=== PATIENT | male | born 1980 | race Caucasian/White ===

== ENCOUNTER → 2018-04-21 15:13 | Outpatient (CLI) | payer MEDICAID, SELFPAY ==
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
== END ==
PROVIDERS: Family Provider Family Medicine; PCP Family Medicine; Referring Provider Anesthesiology; Visit Provider Anesthesiology
DX: M54.2 Cervicalgia (principal)
CPT/HCPCS: 72050

== ENCOUNTER → 2018-05-05 09:02 | Outpatient (CLI) | payer MEDICAID, SELFPAY ==
[2018-05-05 10:01] LABS: Amphetamine Urine VISTA NEGATIVE (<1000 ng/mL); Barbiturate Urine VISTA NEGATIVE (< 200 ng/mL); Benzodiazepine Urine VISTA NEGATIVE (< 200 ng/mL); Cocaine Urine VISTA NEGATIVE (< 300 ng/mL); Ecstacy Urine VISTA NEGATIVE (< 500 ng/mL); Methadone Urine VISTA NEGATIVE (< 300 ng/mL); PCP Urine VISTA NEGATIVE (< 25 ng/mL); THC Urine VISTA NEGATIVE (< 50 ng/mL); Vista UDS pH Range 6
== END ==
PROVIDERS: Family Provider Family Medicine; PCP Family Medicine; Referring Provider Anesthesiology; Visit Provider Anesthesiology
DX: F11.20 Opioid dependence, uncomplicated (principal)
CPT/HCPCS: 80307

== ENCOUNTER 2018-05-21 09:25 | Emergency (ER) | payer MEDICAID, SELFPAY ==
[2018-05-21 11:44] LABS: Anion Gap 11 (5-15); BUN 8 mg/dL (7-18); BUN/Creat Ratio 9.5 RATIO (10-20); Calcium,Total 8.7 mg/dL (8.5-10.1); Chloride 102 mmol/L (98-107); Creatinine, Serum 0.84 mg/dL (0.70-1.30); EST Glomerular Filtration Rate 108 mL/min (>60); Est Glom Filt Rate - Afr Amer 131 mL/min (>60); Glucose 96 mg/dL (74-106); Potassium 4.1 mmol/L (3.5-5.1); Sodium Level 136 mmol/L (136-145)
--- NOTE | 2018-05-21 11:44 | ED.RN ---
SEE DOWNTIME DOCUMENTATION
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
[2018-05-21 12:12] LABS: Absolute Lymphocyte Count 1.69 X10^3/ul (0.83-4.51); Absolute Neutrophil Count 12.1 X10^3/uL (2.0-7.7); Basophil# 0.02 X10^3/uL; Basophil% 0.1 % (0-1); Eosinophil# 0.04 X10^3/uL; Eosinophils% 0.2 % (0-5); Hematocrit 33.4 % (40-54); International Normalized Ratio 1.1; Lymphocyte # 1.69 X10^3/ul (4.0); Lymphocyte % 10.5 % (19-41); Mean Corp Hgb Conc 32.9 g/gl (32-36); Mean Corpuscular Hgb 28.9 pg (27.0-32.0); Mean Corpuscular Volume 87.7 fL (80-94); Mean Platelet Vol. 9.6 fl (6.2-12.0); Monocyte# 2.19 X10^3/uL; Monocyte% 13.6 % (0-10); Neutrophil # 12.13 X10^3/uL (2.7-7.7); Neutrophil % 75.1 % (47-70); Partial Thromboplast Time 31.9 Seconds (24.1-36.2); Platelet Count 463 K/mm3 (150-450); Prothrombin Time (Protime)PT. 14.1 SECONDS (11.7-14.9); RBC Distribution Width SD 44.6 fl (35.1-43.9); Red Blood Count 3.81 M/mm3 (4.6-6.2); White Blood Count 16.2 K/mm3 (4.4-11.0)
[2018-05-21 12:13] LABS: Anisocytosis RARE; Differential Indicated SCAN CRITERIA MET; POSITIVE COUNT NO; POSITIVE DIFFERENTIAL YES; POSITIVE MORPHOLOGY NO; Polychromasia RARE
[2018-05-21 13:00] VITALS: BP 122/78; PULSE 96; RESP 14; TEMP 38; O2SAT 97
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
--- NOTE | 2018-05-21 13:55 | NURSING ---
patient accepted at [facility]
--- NOTE | 2018-05-21 14:36 | NURSING ---
CALLED [facility] FOR TRANSPORT
[2018-05-21 15:00] VITALS: BP 144/78; PULSE 104; RESP 14; TEMP 37.8; O2SAT 100
[2018-05-21 15:03] VITALS: BP 144/78; PULSE 104; RESP 14; TEMP 37.8; O2SAT 100
--- NOTE | 2018-05-21 15:51 | ED.RN ---
EMS at bedside for transport. report given. Denies questions. Pt transferred self on EMS cot.
== END 2018-05-21 15:52 | disposition short-term general hospital (02) ==
PROVIDERS: Emergency Provider Emergency Medicine; Family Provider Family Medicine; PCP Family Medicine
DX: M27.2 Inflammatory conditions of jaws (principal); J45.909 Unspecified asthma, uncomplicated; F17.210 Nicotine dependence, cigarettes, uncomplicated
CPT/HCPCS: 36415; 70491; 80048; 83605; 85025; 85610; 85730; 87040; 96374; 96375; 99282; 99283; Q9967; A4216; J2405

== ENCOUNTER → 2018-07-11 08:45 | Outpatient (CLI) | payer MEDICAID, SELFPAY ==
[2016-11-12 22:33] VITALS: BMI 23.8
[2018-07-11 09:38] LABS: Valproic Acid (Depakene) Level 70 ug/mL (50-100)
== END ==
PROVIDERS: Family Provider Family Medicine; PCP Family Medicine
DX: Z79.899 Other long term (current) drug therapy (principal)
CPT/HCPCS: 36415; 80164

== ENCOUNTER 2019-10-04 07:19 | Observation (INO) | payer MEDICARE, SELFPAY ==
[2019-10-04] VITALS (16 sets, daily range): BP systolic 125–157; BP diastolic 83–101; PULSE 91–107; RESP 16–19; TEMP 36.4–36.8; O2SAT 95–99; BMI 28.3
--- NOTE | 2019-10-04 07:44 | CT_ITS ---
STUDY: CT ABDOMEN AND PELVIS WITHOUT CONTRAST REASON FOR EXAM: Male, 38 years old. BRIGHT RED RECTAL BLEEDING/ ABD PAIN X1 WEEK RADIATION DOSAGE (If Supplied By Facility): CTDIvol = ( 9.60 ) mGy, DLP = ( 544.62 ) mGycm TECHNIQUE: Transaxial images were obtained from the dome of the diaphragm to the symphysis pubis without oral contrast, and without intravenous contrast. Sagittal and coronal images were reconstructed. Individualized dose optimization techniques were used for this CT. COMPARISON: None. FINDINGS: Minimal increased markings at the right lung base suggestive of basilar atelectasis. The visualized portions of the heart are within normal limits. Normal liver. I suspect small gallstones along the dependent portion of the gallbladder lumen. Mildly thickened gallbladder wall. Small amount of fluid is seen along the inferior aspect of the right lobe of the liver. Correlation with ultrasound the gallbladder is recommended for further evaluation. Normal spleen. Normal pancreas. Normal bilateral adrenal glands. Normal right kidney. Normal left kidney. Normal visualized stomach. Normal small intestine. Normal colon. The appendix is visualized and appears normal. Normal abdominal aorta. Normal inferior vena cava. There is borderline retroperitoneal lymphadenopathy with enlarged nodes no greater than 10mm in the short axis diameter. Normal urinary bladder. Small amount of free fluid in the pelvis. There is a small umbilical hernia containing fat. Normal osseous structures. CT/Abdomen/Pelvis without Cont IMPRESSION: Mild gallbladder wall thickening with a small amount of fluid along the inferior edge of the right lobe of the liver. Possible tiny gallstones within the gallbladder lumen. Correlation with sonogram of the gallbladder is recommended for further evaluation. Small amount of fluid is seen in the pelvis. Electronically Signed: Leeroy Ferguson, at 8:37 EDT , Service support ,
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
[2019-10-04] MEDS: Ondansetron 4 MG/2 ML Vial IV (07:58)
[2019-10-04] MEDS: 0.9% Normal Saline 1,000 ML 1000 ML IV (07:58)
[2019-10-04] MEDS: morphine 8 MG/ML Syringe IV ×2 (07:58→12:56)
[2019-10-04 08:08] LABS: Absolute Lymphocyte Count 0.99 X10^3/uL (0.83-4.51); Basophil# 0.03 X10^3/uL; Basophil% 0.3 % (0-1); Eosinophil# 0.09 X10^3/uL; Eosinophils% 0.8 % (0-5); Hematocrit 40.8 % (40-54); Hemoglobin 12.8 g/dL (13.0-16.5); Lymphocyte # 0.99 X10^3/ul (4.0); Lymphocyte % 9.2 % (19-41); Mean Corp Hgb Conc 31.4 g/dL (32-36); Mean Corpuscular Hgb 27.4 pg (27.0-32.0); Mean Corpuscular Volume 87.2 fL (80-94); Mean Platelet Vol. 10.9 fl (6.2-12.0); Monocyte% 14.8 % (0-10); NRBC Flagged by Analyzer 0 % (0-5); Neutrophil # 8.02 X10^3/uL (2.7-7.7); Neutrophil % 74.4 % (47-70); POSITIVE DIFFERENTIAL YES; Platelet Count 301 K/mm3 (150-450); RBC Distribution Width CV 17.4 % (11.6-14.6); RBC Distribution Width SD 55.8 fl (35.1-43.9); Red Blood Count 4.68 M/mm3 (4.6-6.2); White Blood Count 10.8 K/mm3 (4.4-11.0)
[2019-10-04 08:11] LABS: Differential Indicated SCAN CRITERIA MET
[2019-10-04 08:25] LABS: ALB/GLOB Ratio 0.9 RATIO (0.9-2.4); AST(SGOT) 18 U/L (15-37); Alanine Aminotransfer ALT/SGPT 25 U/L (16-61); Albumin, Serum 3.6 g/dL (3.2-5.0); Alkaline Phosphatase 90 U/L (45-117); Anion Gap 8 (5-15); BUN 8 mg/dL (7-18); BUN/Creat Ratio 8.8 RATIO (10-20); Calcium,Total 9.7 mg/dL (8.5-10.1); Chloride 102 mmol/L (98-107); Creatinine, Serum 0.91 mg/dL (0.70-1.30); EST Glomerular Filtration Rate 98 mL/min (>60); Est Glom Filt Rate - Afr Amer 118 mL/min (>60); Estimated Creatinine Clearance 107.91 ml/min; Globulin 4.1 g/dL (2.2-4.2); Glucose 124 mg/dL (74-106); Lipase 51 U/L (73-393); Protein, Total 7.7 g/dL (6.4-8.2); Sodium Level 135 mmol/L (136-145)
[2019-10-04 09:09] LABS: Mucous, Urine 0 SEEN /hpf (<or=2+); Red Blood Cells-Urine 0 SEEN /hpf (0-5); Squamous Epithelial Cells - UA 0 SEEN /hpf (0-5); White Blood Cells 0 SEEN /hpf (0-5)
[2019-10-04 09:10] LABS: Color, Urine Straw (Yellow); Glucose, Dipstick Normal (Normal); Ketone-Dipstick Negative (Negative); Leukocyte Esterase-Dipstick Negative /ul (Negative); Nitrite-Dipstick Negative (Negative); Occult Blood-Urine Negative /ul (Negative); Protein-Dipstick Negative (Negative); Urine Bilirubin Dipstick Negative (Negative); Urine Clarity Clear (Clear); Urine Urobilinogen Normal (Normal)
[2019-10-04 09:16] LABS: Bacteria 1+ /hpf (None Seen)
--- NOTE | 2019-10-04 09:27 | US_ITS ---
STUDY: ABDOMINAL ULTRASOUND - RIGHT UPPER QUADRANT REASON FOR VISIT: Male, 38 years old RUQ PAIN TECHNIQUE: Ultrasound evaluation of the right upper quadrant was performed with real-time and static garcia-scale imaging. TECHNICAL QUALITY: Limited. Examination limited due to the patient?s condition. COMPARISON: Comparison is made with prior CT scan and abdomen/pelvis done earlier in the day. FINDINGS: Liver: The liver measures 16.1 cm. There is normal echogenicity of the liver. The bile ducts are within normal limits. There is hepatic color flow. The direction of portal flow is hepatopetal. There is no demonstrated mass lesion. Gallbladder: Normal distended gallbladder. The gallbladder wall is thickened and measures 3.9 mm. There is a positive sonographic Campbell''s sign. There is pericholecystic fluid. There is a solitary echogenic gallstone within the gallbladder. This measures 1.3 cm x 1.4 cm. A small amount of fluid is also seen along the inferior edge of the right lobe of the liver. Common Bile Duct (C.B.D.): The common bile duct was not measured. It was not visualized due to the gas present. Pancreas: There is nonvisualization of the pancreas. Right Kidney: Normal size of the right kidney. The right kidney measures 10.7 cm x 5.2 cm x 5.0 cm. Normal renal cortex. The right cortex measures 1.6 cm. There is no demonstrated renal mass or cyst. There is no right hydronephrosis. US/Gallbladder IMPRESSION: Solitary gallstone with thickened gallbladder wall and a small amount of pericholecystic fluid. Findings are suggestive of acute cholecystitis. Electronically Signed: Leeroy Ferguson, at 10:42 EDT , Service support ,
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
--- NOTE | 2019-10-04 14:00 | GALL_PTH ---
PATIENT: HONORIO PRINCE LOC: [facility] U#:[id number] AGE/SX: 38/M ROOM: GA315 RE10/05/[address]: Dr. Carroll Sr MD : 1980 BED: 1 DIS: 10/06/2019 SPEC #: [id number] RECD: 10/05/19 08:34 STATUS: HERNESTO SAMANTHA #: [id number] DARIA: 10/04/19 14:[address]: Carroll Sr DEPT: SURGICAL PATHOLOGY RECD BY: Aviva Miller ENTERED: 10/05/19 09:40 SP TYPE: MARLEN MOSES DR: Dr. Richar Fields MD Tissues: Gallbladder, NOS Procedures: Surgery Specimen Level III HEADER OPERATION: Laparoscopic cholecystectomy PRE-OP DIAGNOSIS: Acute cholecystitis TISSUE SUBMITTED: Gallbladder MICROSCOPIC DIAGNOSIS Gallbladder, cholecystectomy: Cholesterolosis, acute and chronic cholecystitis and cholelithiasis. AM:fran 10/08/19 MICROSCOPIC DESCRIPTION Slides are reviewed. GROSS DESCRIPTION Received is one container labeled with the patient's name and designated gallbladder. The specimen consists of a gallbladder measuring 10.5 cm in length and up to 4.5 cm in diameter. A portion of the gallbladder wall is partially disrupted. The serosal surface is focally covered with garcia-purulent exudate. The external surface is pink-draper, smooth and glistening for the most part. Focally it is granular, hemorrhagic and contains cautery artifact. The gallbladder contains multiple blood clots and two mulberry, yellow-orange stones each measuring 1 cm in diameter. The mucosa is congested and hemorrhagic. The gallbladder wall measures up to 0.5 cm in thickness. [employer] sections from the gallbladder and the cystic duct are submitted in two cassettes. / SJ:fran 10/05/19 TC:2 CPT: 55575
[2019-10-04] MEDS: Bupivacaine Mpf 0.5% 30 ML VIAL (16:09)
--- NOTE | 2019-10-04 16:09 | OP.PCM_ITS ---
Problem List (1) Cholecystitis Status: Acute (2) Acute cholecystitis due to biliary calculus Status: Acute Report of Operation Date of Procedure: 10/04/19 Pre-Operative Diagnosis: Acute cholecystitis with cholelithiasis Post-Operative Diagnosis: Gangrenous cholecystitis with cholelithiasis Surgery/Procedure Performed:: Laparoscopic cholecystectomy Type of Anesthesia:: General Anesthesiologist: Ankur Driscoll Specimen's removed: Gallbladder Drains: 15 round Elmo-Latham Estimated Blood Loss (mL): 500 cc Fluids Replaced: 1 L Description of Procedure: Patient was brought into the operating room. Placed in the supine position. Under excellent general trach ovation the abdomen was sterilely prepped and draped in usual fashion. Local was injected supraumbilically. Dissection was carried down to the fascia. The fascia was grasped with a Eduardo. Varies needle was placed inside the abdomen. The abdomen was insufflated to 15 torr. A 10/12 trocar was placed without difficulty. To my amazement he only had one adhesion and his abdomen and the site where the G-tube was located as well. A subxiphoid #5 trochars placed inferior to this another #5 trocar was placed laterally a #5 trocar was placed. All of these were placed under direct visualization without injury to underlying structures. One loan adhesion was cut with electrocautery and scissors. I aspirated out the gallbladder it looked necrotic and I grabbed the fundus of the gallbladder and retracted in a cephalad direction. I then went down to the infundibulum large stone was identified at the neck of the gallbladder. I dissected the cystic duct free here. Placed hemoclips proximally and distally and ligated the duct. There was some significant contraction of the gallbladder coming down towards the right hepatic artery I had to dissect close to the gallbladder I did have some bleeding with this but I was able to control it with 2 hemo-lock clips. The right hepatic artery was intact and viable. I started to deliver the gallbladder from the gallbladder bed it avulsed on the liver itself. I had to transect the posterior wall the gallbladder leaving some of the posterior wall onto the liver bed itself. Unfortunately the posterior part of the gallbladder was the thinnest and tore easily necessitating me leaving part of it on the liver bed. I placed the gallbladder with the stones into a specimen bag and brought it through the umbilical port. I had quite a bit of venous oozing from the liver bed here this took a long time to get good control I used to 4 x 4's for direct pressure I use the argon beam and finally placed a piece of Surgicel onto the liver bed and applied pressure for approximately 20 minutes. I removed the 4 x 4's I inspected the liver bed there was no active bleeding around the Surgicel. I felt that it was best to leave the Surgicel in place and not remove it. My clips were in good placement the liver bed itself obviously was healthy there was no signs of necrosis. Towards the end of the procedure I did decide that it was best to type and screen him as well as get a stat H&H. I do not think that I am going to have to need to give him a blood transfusion but I lost more blood than I normally do for this procedure. A 15 round Elmo-Latham drain was placed in the right upper quadrant incision. It was sutured to the skin with a 3-0 nylon and directed towards the base of the cystic duct and liver bed where the gallbladder was located. I aspirated all the air out of the abdomen. I remove the trochars. I closed the fascia the umbilical port with a fig [id number] stitch of 0 Vicryl. Skin incisions were closed with subcuticular stitches of 4-0 Monocryl. Steri-Strips were applied sterile dressings were applied and the patient tolerated the procedure well. - Admit VTE Documentation VTE Present on Admission: No VTE Mechan Device Prophylaxis: SCD's VTE Pharm Prophylaxis ordered?: No Reason prophylaxis not ordered:: Treatment Not Indicated [id number] Laparoscopic cholecystectomy
[2019-10-04 16:20] LABS: Absolute Lymphocyte Count 2.06 X10^3/uL (0.83-4.51); Absolute Neutrophil Count 6.7 X10^3/uL (2.0-7.7); Basophil# 0.03 X10^3/uL; Basophil% 0.3 % (0-1); Eosinophil# 0.16 X10^3/uL; Eosinophils% 1.5 % (0-5); Hematocrit 33.8 % (40-54); Lymphocyte # 2.06 X10^3/ul (4.0); Lymphocyte % 18.8 % (19-41); Mean Corp Hgb Conc 32.5 g/dL (32-36); Mean Corpuscular Hgb 28.1 pg (27.0-32.0); Mean Corpuscular Volume 86.2 fL (80-94); Mean Platelet Vol. 10.2 fl (6.2-12.0); Monocyte# 2.01 X10^3/uL; Monocyte% 18.4 % (0-10); NRBC Flagged by Analyzer 0 % (0-5); Neutrophil # 6.66 X10^3/uL (2.7-7.7); Neutrophil % 60.7 % (47-70); POSITIVE DIFFERENTIAL YES; Platelet Count 242 K/mm3 (150-450); RBC Distribution Width CV 17.6 % (11.6-14.6); RBC Distribution Width SD 55.6 fl (35.1-43.9); Red Blood Count 3.92 M/mm3 (4.6-6.2)
[2019-10-04 16:21] LABS: Differential Indicated SCAN CRITERIA MET
[2019-10-04 16:51] LABS: Anisocytosis RARE; Platelet Estimate ADEQUATE (ADEQ); Red Cell Morphology N CHROM NORMAL (NORM C&C)
[2019-10-04] MEDS: 0.9% Normal Saline 1,000 ML 100 ML IV (18:02)
[2019-10-04] MEDS: oxyCODONE 5 MG Tablet PO (19:55)
--- NOTE | 2019-10-04 20:50 | NURSING ---
notified pharmacy that pt receives pill bubble packets from [facility] and is not able to provide a prescription bottle to the hospital
[2019-10-04] MEDS: Pregabalin 75 MG Capsule 150 MG PO (21:57)
[2019-10-04] MEDS: Benztropine 2 MG Tablet 1 MG PO (21:58)
[2019-10-04] MEDS: QUEtiapine 100 MG Tablet 200 MG PO (21:58)
[2019-10-04] MEDS: HYDROmorphone 0.5 MG/0.5 ML SYRINGE IV (22:00)
[2019-10-04] MEDS: 0.9% Saline Lock 10 ML Syringe IV (22:00)
[2019-10-05 01:35] VITALS: BP 134/89; PULSE 100; RESP 20; TEMP 36.5; O2SAT 95
[2019-10-05] MEDS: oxyCODONE 5 MG Tablet PO ×4 (01:42→22:00)
[2019-10-05] MEDS: 0.9% Normal Saline 1,000 ML 100 ML IV ×2 (03:53→13:53)
[2019-10-05 05:32] VITALS: BP 125/76; PULSE 110; RESP 18; TEMP 36.8; O2SAT 97
[2019-10-05] MEDS: Pregabalin 75 MG Capsule 150 MG PO ×3 (05:42→21:36)
[2019-10-05 06:12] LABS: Absolute Lymphocyte Count 1.33 X10^3/uL (0.83-4.51); Basophil# 0.03 X10^3/uL; Basophil% 0.3 % (0-1); Eosinophil# 0.11 X10^3/uL; Eosinophils% 1.2 % (0-5); Hematocrit 33.2 % (40-54); Hemoglobin 10.3 g/dL (13.0-16.5); Lymphocyte # 1.33 X10^3/ul (4.0); Mean Corpuscular Hgb 27.9 pg (27.0-32.0); Mean Platelet Vol. 10.6 fl (6.2-12.0); Monocyte# 1.35 X10^3/uL; Monocyte% 15.2 % (0-10); NRBC Flagged by Analyzer 0 % (0-5); Neutrophil # 6.02 X10^3/uL (2.7-7.7); Platelet Count 256 K/mm3 (150-450); RBC Distribution Width CV 17.4 % (11.6-14.6); RBC Distribution Width SD 56.8 fl (35.1-43.9); Red Blood Count 3.69 M/mm3 (4.6-6.2); White Blood Count 8.9 K/mm3 (4.4-11.0)
[2019-10-05 06:45] LABS: ALB/GLOB Ratio 0.7 RATIO (0.9-2.4); AST(SGOT) 135 U/L (15-37); Alanine Aminotransfer ALT/SGPT 228 U/L (16-61); Albumin, Serum 2.6 g/dL (3.2-5.0); Alkaline Phosphatase 108 U/L (45-117); Anion Gap 4 (5-15); BUN 7 mg/dL (7-18); BUN/Creat Ratio 7.8 RATIO (10-20); Calcium,Total 8.3 mg/dL (8.5-10.1); Chloride 102 mmol/L (98-107); EST Glomerular Filtration Rate 99 mL/min (>60); Est Glom Filt Rate - Afr Amer 119 mL/min (>60); Globulin 3.5 g/dL (2.2-4.2); Glucose 99 mg/dL (74-106); Potassium 3.9 mmol/L (3.5-5.1); Protein, Total 6.1 g/dL (6.4-8.2); Sodium Level 135 mmol/L (136-145)
[2019-10-05] MEDS: Divalproex (ER) 500 MG Tablet PO (08:59)
[2019-10-05] MEDS: tiZANidine HCl 2 MG Tablet 4 MG PO (08:59)
[2019-10-05] MEDS: FLUoxetine 20 MG Capsule 40 MG PO (08:59)
[2019-10-05] MEDS: Pantoprazole Sodium 40 MG Tablet PO (08:59)
[2019-10-05] MEDS: Docusate Sodium 100 MG Capsule PO (08:59)
[2019-10-05 09:01] VITALS: BP 123/77; PULSE 100; RESP 18; TEMP 37.2; O2SAT 98
[2019-10-05] MEDS: QUEtiapine 100 MG Tablet 200 MG PO ×2 (09:51→21:36)
[2019-10-05 11:49] LABS: Pathologist Review Reviewed
--- NOTE | 2019-10-05 12:09 | PCM.PN.SRG ---
Patient Problems: Active and Suspected Problems Cholecystitis (Acute) Acute cholecystitis due to biliary calculus (Acute) Subjective: The deep pain that he had on admission has improved. He has incisional pain at the present time. No nausea no vomiting. Objective: Dressings are dry. FLOYD drain has only serous sanguinous fluid. No clarice blood. Appropriate incisional discomfort. Not complaining of any leg tenderness. - Physical Exam Vitals/I&O's: Vital Signs Temp Pulse Resp BP Pulse Ox 99.0 F 100 18 123/77 H 98 10/05/19 09:01 10/05/19 09:01 10/05/19 09:01 10/05/19 09:01 10/05/19 09:01 Oxygen Delivery Method Room Air Weight: 192 lb Body Mass Index (BMI) 28.3 Intake and Output for Last 24 Hours 10/03/19 10/04/19 10/05/19 23:59 23:59 23:59 Intake Total 1550 / 1550 1385 / 1385 Output Total 815 / 815 490 / 490 Balance 735 / 735 895 / 895 Laboratory Results 10/04/19 16:02: WBC 11.0, RBC 3.92 L, Hgb 11.0 L, Hct 33.8 L, MCV 86.2, MCH 28.1, MCHC 32.5, RDW Std Deviation 55.6 H, RDW Coeff of Moraima 17.6 H, Plt Count 242, MPV 10.2, Immature Gran % (Auto) 0.300, Neut % (Auto) 60.7, Lymph % (Auto) 18.8 L, [place] % (Auto) 18.4 H, Eos % (Auto) 1.5, Baso % (Auto) 0.3, Absolute Neuts (auto) 6.7, Absolute Lymphs (auto) 2.06, Nucleated RBC % 0, Differential Comment SEE COMMENT, Diff Path Review Reviewed, Platelet Estimate ADEQUATE, RBC Morphology N CHROM, Anisocytosis RARE 10/04/19 16:02: Blood Type O POSITIVE, Antibody Screen NEGATIVE 10/05/19 05:55: WBC 8.9, RBC 3.69 L, Hgb 10.3 L, Hct 33.2 L, MCV 90.0, MCH 27.9, MCHC 31.0 L, RDW Std Deviation 56.8 H, RDW Coeff of Moraima 17.4 H, Plt Count 256, MPV 10.6, Immature Gran % (Auto) 0.300, Neut % (Auto) 68.0, Lymph % (Auto) 15.0 L, [place] % (Auto) 15.2 H, Eos % (Auto) 1.2, Baso % (Auto) 0.3, Absolute Neuts (auto) 6.0, Absolute Lymphs (auto) 1.33, Nucleated RBC % 0 10/05/19 05:55: Sodium 135 L, Potassium 3.9, Chloride 102, Carbon Dioxide 29.0, Anion Gap 4 L, BUN 7, Creatinine 0.90, Estim Creat Clear Calc 109.10, Est GFR (MDRD) Af Amer 119, Est GFR (MDRD) Non-Af 99, BUN/Creatinine Ratio 7.8 L, Glucose 99, Calcium 8.3 L, Total Bilirubin 1.80 H, AST 135 H, ALT 228 H, Alkaline Phosphatase 108, Total Protein 6.1 L, Albumin 2.6 L, Globulin 3.5, Albumin/Globulin Ratio 0.7 L Current Medications Acetaminophen (Tylenol) 650 mg PO Q6H PRN PRN PRN Reason: Pain Score 1-1010 Benztropine Mesylate (Cogentin) 1 mg PO QHS [facility] Last Admin: 10/04/19 21:58 Dose: 1 mg Documented by: Divalproex Sodium (Depakote Er) 500 mg PO DAILY [facility] Last Admin: 10/05/19 08:59 Dose: 500 mg Documented by: Docusate Sodium (Colace) 100 mg PO DAILY [facility] Last Admin: 10/05/19 08:59 Dose: 100 mg Documented by: Fluoxetine HCl (Prozac) 40 mg PO DAILY [facility] Last Admin: 10/05/19 08:59 Dose: 40 mg Documented by: Hydromorphone HCl (Dilaudid Inj) 0.5 - 1 mg IV Q2H PRN PRN PRN Reason: Pain Score 1-10/10 Last Admin: 10/04/19 22:00 Dose: 0.5 mg Documented by: Sodium Chloride () 1,000 mls @ 100 mls/hr IV .Q10H [facility] Last Admin: 10/05/19 03:53 Dose: 100 mls/hr Documented by: Piperacillin Sod/Tazobactam (Sod 3.375 gm/ Sodium Chloride) 50 mls @ 12.5 mls/hr IV Q8 [facility] Last Infusion: 10/05/19 10:00 Dose: Infused Documented by: Sodium Chloride () 250 mls @ 15 mls/hr IV .[id number] PRN PRN Reason: Saline Flush Sodium Chloride () 250 mls @ 15 mls/hr IV .[id number] PRN PRN Reason: Additional IVPB Infusion Ondansetron HCl (Zofran) 4 mg IV Q8H PRN PRN PRN Reason: NAUSEA Oxycodone HCl (Oxyir) 5 - 10 mg PO Q4H PRN PRN PRN Reason: Pain Score 6-10/10 Last Admin: 10/05/19 09:50 Dose: 10 mg Documented by: Paliperidone (Invega) 6 mg PO DAILY [facility] Pantoprazole Sodium (Protonix) 40 mg PO DAILY [facility] Last Admin: 10/05/19 08:59 Dose: 40 mg Documented by: Pregabalin (Lyrica) 150 mg PO TID [facility] Last Admin: 10/05/19 05:42 Dose: 150 mg Documented by: Quetiapine Fumarate (Seroquel) 200 mg PO BID [facility] Last Admin: 10/05/19 09:51 Dose: 200 mg Documented by: Sodium Chloride () 10 - 40 ml IV UD PRN PRN Reason: SALINE FLUSH Last Admin: 10/04/19 22:00 Dose: 10 ml Documented by: Tizanidine HCl (Zanaflex) 4 mg PO DAILY [facility] Last Admin: 10/05/19 08:59 Dose: 4 mg Documented by: Medical Necessity - Tobacco Use Smoking Status: Former smoker Assessment/Plan All Active Problems Cholecystitis (Acute) Acute cholecystitis due to biliary calculus (Acute) Postoperative day #1 Liver function test went up appropriately secondary to his surgery. Hemoglobin has drifted down slightly but I do not anticipate needing to give a blood transfusion. Patient is clearly not ready for discharge today.
--- NOTE | 2019-10-05 13:09 | CASEMGMT ---
RN NICHO NOTE: Pt not ready for discharge today. SRINI TORRE to room to review CHRISTIAN form. Pt groggy and kept falling asleep while RN NICHO talking with pt. Per SRINI Liang, pt has been groggy today for her as well. Review of CHRISTIAN form to be attempted at a later time when pt more awake. Lin PALOMON SRINI TORRE
[2019-10-05 14:12] VITALS: BP 124/74; PULSE 110; RESP 20; TEMP 37.4; O2SAT 96
--- NOTE | 2019-10-05 15:42 | NURSING ---
Pt had disconnected IV tubing and had end of tubing in mouth. pt states im [age] showed pt ice water on bedside table and offered something else to drink. Educated pt on importance of not tampering with IV line due to use of medications and possible infection. pt resting in chair personal alarm in place, call light within reach.
[2019-10-05] MEDS: Paliperidone 6 MG Tablet PO (21:36)
[2019-10-05] MEDS: Benztropine 2 MG Tablet 1 MG PO (21:38)
[2019-10-05 21:47] VITALS: BP 134/90; PULSE 114; RESP 18; TEMP 37; O2SAT 92
[2019-10-06] MEDS: 0.9% Normal Saline 1,000 ML 100 ML IV (00:07)
[2019-10-06 03:45] VITALS: RESP 16; O2SAT 87
[2019-10-06 03:50] VITALS: BP 142/79; PULSE 98; RESP 16; TEMP 37.4; O2SAT 94
[2019-10-06] MEDS: Acetaminophen 325 MG Tablet 650 MG PO ×2 (04:40→10:33)
[2019-10-06] MEDS: Pregabalin 75 MG Capsule 150 MG PO (06:17)
[2019-10-06 08:50] VITALS: BP 120/80; PULSE 88; RESP 16; TEMP 36.7; O2SAT 97
--- NOTE | 2019-10-06 08:51 | PCM.PN.SRG ---
Patient Problems: Active and Suspected Problems Cholecystitis (Acute) Acute cholecystitis due to biliary calculus (Acute) Subjective: Patient tolerating clears, pain controlled with p.o. pain meds, drain still serosanguineous - Physical Exam Vitals/I&O's: Vital Signs Temp Pulse Resp BP Pulse Ox 99.3 F H 98 16 142/79 H 94 10/06/19 03:50 10/06/19 03:50 10/06/19 03:50 10/06/19 03:50 10/06/19 03:50 Oxygen Flow Rate (L/min) 1.5 Oxygen Delivery Method Room Air Weight: 192 lb Body Mass Index (BMI) 28.3 Intake and Output for Last 24 Hours 10/04/19 10/05/19 10/06/19 23:59 23:59 23:59 Intake Total 1550 / 1550 4495 / 4795 650 / 650 Output Total 815 / 815 1770 / 1800 30 / 30 Balance 735 / 735 2725 / 2995 620 / 620 General: Alert, Oriented x3, Cooperative, No apparent distress Lungs: Normal air movement Cardiovascular: Regular rate Abdomen: Soft, Non-Distended, Tender - At incisions especially umbilical, clean dry and intact with Steri's drips and OpSite's, no peritoneal signs, - - FLOYD serosanguineous, removed at bedside patient tolerated with pain. Psych/Mental Status: Normal Affect Laboratory Results 10/04/19 16:02: Diff Path Review Reviewed Current Medications Acetaminophen (Tylenol) 650 mg PO Q6H PRN PRN PRN Reason: Pain Score 1-10/10 Last Admin: 10/06/19 04:40 Dose: 650 mg Documented by: Benztropine Mesylate (Cogentin) 1 mg PO QHS [facility] Last Admin: 10/05/19 21:38 Dose: 1 mg Documented by: Divalproex Sodium (Depakote Er) 500 mg PO DAILY [facility] Last Admin: 10/05/19 08:59 Dose: 500 mg Documented by: Docusate Sodium (Colace) 100 mg PO DAILY [facility] Last Admin: 10/05/19 08:59 Dose: 100 mg Documented by: Fluoxetine HCl (Prozac) 40 mg PO DAILY [facility] Last Admin: 10/05/19 08:59 Dose: 40 mg Documented by: Hydromorphone HCl (Dilaudid Inj) 0.5 - 1 mg IV Q2H PRN PRN PRN Reason: Pain Score 1-10/10 Last Admin: 10/04/19 22:00 Dose: 0.5 mg Documented by: Sodium Chloride () 1,000 mls @ 100 mls/hr IV .Q10H [facility] Last Admin: 10/06/19 00:07 Dose: 100 mls/hr Documented by: Piperacillin Sod/Tazobactam (Sod 3.375 gm/ Sodium Chloride) 50 mls @ 12.5 mls/hr IV Q8 [facility] Last Admin: 10/06/19 06:17 Dose: 12.5 mls/hr Documented by: Sodium Chloride () 250 mls @ 15 mls/hr IV .[id number] PRN PRN Reason: Saline Flush Sodium Chloride () 250 mls @ 15 mls/hr IV .[id number] PRN PRN Reason: Additional IVPB Infusion Ondansetron HCl (Zofran) 4 mg IV Q8H PRN PRN PRN Reason: NAUSEA Oxycodone HCl (Oxyir) 5 - 10 mg PO Q4H PRN PRN PRN Reason: Pain Score 6-10/10 Last Admin: 10/05/19 22:00 Dose: 5 mg Documented by: Paliperidone (Invega) 6 mg PO DAILY [facility] Last Admin: 10/05/19 21:36 Dose: 6 mg Documented by: Pantoprazole Sodium (Protonix) 40 mg PO DAILY [facility] Last Admin: 10/05/19 08:59 Dose: 40 mg Documented by: Pregabalin (Lyrica) 150 mg PO TID [facility] Last Admin: 10/06/19 06:17 Dose: 150 mg Documented by: Quetiapine Fumarate (Seroquel) 200 mg PO BID [facility] Last Admin: 10/05/19 21:36 Dose: 200 mg Documented by: Sodium Chloride () 10 - 40 ml IV UD PRN PRN Reason: SALINE FLUSH Last Admin: 10/04/19 22:00 Dose: 10 ml Documented by: Tizanidine HCl (Zanaflex) 4 mg PO DAILY [facility] Last Admin: 10/05/19 08:59 Dose: 4 mg Documented by: Medical Necessity - Tobacco Use Smoking Status: Former smoker Assessment/Plan All Active Problems Cholecystitis (Acute) Acute cholecystitis due to biliary calculus (Acute) 38-year-old male status post laparoscopic cholecystectomy Tolerating diet, ambulating, pain control with p.o. meds, will DC with Augmentin. Lizzeth Cruz M.D. Pager: [phone] [facility] [address] [place] [address], [address] [place] [address] Office: [phone]
--- NOTE | 2019-10-06 08:56 | PCM.DC.GB ---
Discharge Diet: Light diet - advance as tolerated Discharge Activity: May not drive while taking narcotic pain medications. Lifting Restrictions: no lifting >20 lbs x 2 weeks Call your doctor if your incision/area has: Continuous Slow Oozing, Sudden Increased Bleeding, Increased Pain/ Swelling, Increased Redness, Foul Smelling Discharge, Swelling at the incision site Call your doctor if you observe: Fever of 101 or Higher Remove Dressing in (days):: 1 - Okay to remove op sites, Steri-Strips down for 7 to 10 days from surgery if they do not fall in 10 days okay to remove Additional Instructions: Okay to take ibuprofen 400-600 mg PO q6hr PRN along with the Percocet (oxycodone/acetaminophen). Avoid Tylenol since there is already Tylenol in the Percocet. Take all pain meds with food. Percocet can cause constipation recommend taking daily stool softener (i.e. Colace/docusate) while taking the pain meds. Recommend starting some MiraLAX in 1 day if no bowel movement. If still no bowel movement the following day recommend taking magnesium citrate half the bottle and waiting 4-6 hours if still no results take the other half the bottle. Allergies/Adverse Reactions: Allergies No Known Allergies Allergy (Verified 10/04/19 07:19) Medications to take at Discharge Albuterol IH (ProAir) [Proair Hfa (SP)Vent Pts] 2 puff INHALATION Q4H PRN PRN 10/04/19 Benztropine [Cogentin] 1 mg PO QHS 10/04/19 Divalproex Sodium [Depakote] 500 mg PO DAILY 10/04/19 Fluoxetine [Prozac] 40 mg PO DAILY 10/04/19 Paliperidone [Paliperidone ER] 6 mg PO DAILY 10/04/19 Pregabalin [Lyrica] 150 mg PO TID 10/04/19 Quetiapine Fumarate [Seroquel Xr] 400 mg PO DAILY 10/04/19 Tizanidine HCl [Zanaflex] 4 mg PO DAILY 10/04/19 Amoxicillin/Potassium Clav [Augmentin 875-125 Tablet] 1 ea PO BID #6 tab 10/06/19 Oxycodone HCl/Acetaminophen [Percocet 5/325] 1 - 2 tablet PO Q6H PRN PRN 6 Days #25 tablet 10/06/19 The following prescriptions were given: Amoxicillin/Potassium Clav [Augmentin 875-125 Tablet] 1 ea PO BID #6 tab Transmission Status: Pending to [facility] Oxycodone HCl/Acetaminophen [Percocet 5/325] 1 - 2 tablet PO Q6H PRN PRN 6 Days #25 tablet PRN Reason: Pain Transmission Status: Sent to [facility] Primary Care Physician: Richar Fields MD [Primary Care Provider] - Test Results: Test results from this visit will be discussed in further detail at your follow-up appointment, if applicable. Please Follow Up With: Carroll Sr MD When: Call the office for appointment in 1 to 2 weeks Proposed Discharge Date: 10/06/19
[2019-10-06] MEDS: Paliperidone 6 MG Tablet PO (10:09)
[2019-10-06] MEDS: Divalproex (ER) 500 MG Tablet PO (10:10)
[2019-10-06] MEDS: Pantoprazole Sodium 40 MG Tablet PO (10:11)
[2019-10-06] MEDS: FLUoxetine 20 MG Capsule 40 MG PO (10:11)
[2019-10-06] MEDS: tiZANidine HCl 2 MG Tablet 4 MG PO (10:12)
[2019-10-06] MEDS: QUEtiapine 100 MG Tablet 200 MG PO (10:12)
[2019-10-06 12:40] VITALS: BP 115/70; PULSE 95; RESP 18; TEMP 36.1; O2SAT 95
--- OUTSIDE RECORDS SUMMARY | 2020-02-10 11:29 | XMS RPT_ITS | CCD ---
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 [facility] ([id number]) sodium chloride 0.9 % 485 mL IVPB Infuse 1,500 (one thousand five hundred) mg into a venous catheter every 12 (twelve) hours. 14 each 12/27/2016 12/28/2016 Discontinued vancomycin 1,750 vancom[facility] 1,750 05-31-2017 [facility] sodium 07-05-2017 [place] ([id number]) chloride 0.9 % chloride 0.9 % 482.5 mL IVPB 482.5 mL IVPB Infuse 1,750 (one thousand seven hundred fifty) mg into a venous catheter every 12 (twelve) hours. 14 each 05/31/2017 07/05/2017 Active vancomycin 1,750 mg in 05-31-2017 - 07-05-2017 Sridhar Rico [facility] ([id number]) sodium chloride 0.9 % 482.5 mL IVPB Infuse 1,750 (one thousand seven hundred fifty) mg into a venous catheter every 12 (twelve) hours. 14 each 05/31/2017 07/05/2017 Active vancomycin 1,750 mg in 05-31-2017 - 07-05-2017 Sridhar Rico [facility] ([id number]) sodium chloride 0.9 % 482.5 mL IVPB Infuse 1,750 (one thousand seven hundred fifty) mg into a venous catheter every 12 (twelve) hours. 14 each 05/31/2017 07/05/2017 Active vancomycin 1,750 mg in 05-31-2017 - 07-05-2017 Sridhar Rico [facility] ([id number]) sodium chloride 0.9 % 482.5 mL IVPB Infuse 1,750 (one thousand seven hundred fifty) mg into a venous catheter every 12 (twelve) hours. 14 each 05/31/2017 07/05/2017 Active vancomycin 1,750 mg in 05-31-2017 - 07-05-2017 Sridhar Rico [facility] ([id number]) sodium chloride 0.9 % 482.5 mL IVPB Infuse 1,750 (one thousand seven hundred fifty) mg into a venous catheter every 12 (twelve) hours. 14 each 05/31/2017 07/05/2017 Active UNKNOWN Jessenia Ha [facility] ([id number]) Completed/Discontinuned Medications Medication Name Sig Date Prescriber Location acetaminophen acetaminophen (TYLENOL) 05-26-2018 - [facility] ([id number]) 650 mg/20.3 mL Soln Take 07-05-2018 20.3 mL (650 mg total) by mouth every 6 (six) hours . 240 mL 0 06/05/2018 07/05/2018 acetaminophen (TYLENOL) 05-22-2018 [facility][id number][facility] solution 650 mg 05-27-2018 acetaminophen (TYLENOL) 05-12-2018 - [facility] ([id number]) tablet 650 mg 05-13-2018 acetaminophen (TYLENOL) 06-14-2017 - [facility] ([id number]) 325 MG tablet 07-01-2017 Indications: Chronic osteomyelitis of facial bones (HCC) Take 1 (one) tablet (325 mg total) by mouth every 6 (six) hours as needed for pain. 30 tablet 0 06/21/2017 07/01/2017 Active acetaminophen (TYLENOL) 05-31-2017 - Francisco Lima [facility] ([id number]) 325 MG tablet Take 3 06-10-2017 [place] (three) tablets (975 mg total) by mouth every 8 (eight) hours for 10 days. 90 tablet 0 05/31/2017 06/10/2017 acetaminophen (TYLENOL) 05-31-2017 - Francisco Lima [facility] ([id number]) 650 mg/20.3 mL Soln Take 05-31-2017 [place] 30.45 mL (975 mg total) by mouth every 8 (eight) hours. 2740.5 mL 0 05/31/2017 05/31/2017 Discontinued acetaminophen (TYLENOL) 05-25-2017 - [facility] ([id number]) solution 975 mg 975 mg, 05-31-2017 Oral, Every 8 hours, First dose on Tue05/25/17 at 2000 Given 05/30/2017 20:12 EST 975 mg acetaminophen / oxyCODONE-acetaminophen 03-14-2017 - Mony Zimmerman oxyCODONE (PERCOCET) 7.5-325 mg per 03-22-2017 [facility] ([id number]) tablet Take 1 (one) tablet [place] to 2 (two) tablets by mouth every 4 (four) hours as needed for pain. 50 tablet 0 03/14/2017 03/22/2017 Discontinued oxyCODONE-acetaminophen 03-12-2017 - Ovi Pena [facility] ([id number]) (PERCOCET) 7.5-325 mg per tablet 03-14-2017 2 tablet 2 tablet, Oral, Every 4 hours PRN, moderate to severe pain, Starting 03/12/17 at 0815 Given 03/14/2017 04:39 EST 2 tablets oxyCODONE-acetaminophen 03-11-2017 - Luis Manuel Lee [facility] ([id number]) (PERCOCET) 5-325 mg per tablet 2 03-11-2017 [place] tablet 2 tablet, Oral, Once as needed, Pain, Starting 03/11/17 at 0916, For 1 dose, PACU (only), [] While in PACU when tolerating orals. [] Use oral route first, if tolerated. Given 03/11/2017 09:32 EST 2 tablets oxyCODONE-acetaminophen 02-22-2017 - Ashlie Chand [facility] ([id number]) (PERCOCET) 7.5-325 mg per tablet 03-14-2017 1 tablet 1 tablet, Oral, Every 6 hours PRN, moderate to severe pain, Starting 03/11/17 at 1105 Given 03/11/2017 13:37 EST 1 tablet oxyCODONE-acetaminophen 02-03-2017 - [facility] ([id number]) (PERCOCET) 5-325 mg per tablet 02-10-2017 Indications: Chronic osteomyelitis of facial bones (HCC) Take 1 (one) tablet by mouth every 6 (six) hours as needed for pain. 20 tablet 0 02/03/2017 02/10/2017 Active oxyCODONE-acetaminophen 01-04-2017 - [facility] ([id number]) (PERCOCET) 5-325 mg per tablet 01-14-2017 Indications: Chronic osteomyelitis of facial bones (HCC) Take 1 (one) tablet by mouth every 4 (four) hours as needed for pain. 28 tablet 0 01/04/2017 01/14/2017 Active oxyCODONE-acetaminophen 12-28-2016 - [facility] ([id number]) (PERCOCET) 5-325 mg per tablet 01-07-2017 Take 1 (one) tablet to 2 (two) tablets by mouth every 4 (four) hours as needed for pain. 65 tablet 0 12/28/2016 01/04/2017 Discontinued oxyCODONE-acetaminophen 12-21-2016 - [facility] ([id number]) (PERCOCET) 5-325 mg per tablet 2 12-28-2016 tablet 2 tablet, Oral, Every 4 hours PRN, moderate to severe pain, Starting Tu12/21/16 at 1544 Given 12/28/2016 04:10 EDT 2 tablets oxyCODONE-acetaminophen 12-07-2016 - [facility] ([id number]) (PERCOCET) 10-325 mg per tablet 12-28-2016 Take 1 (one) tablet to 2 (two) tablets by mouth every 4 (four) hours as needed for pain. 50 tablet 0 12/15/2016 12/25/2016 Suspended oxyCODONE-acetaminophen 12-01-2016 - Jorge Jamison [facility] ([id number]) (PERCOCET) 10-325 mg per tablet 12-01-2017 Indications: Open fracture of body of mandible with routine healing, unspecified laterality, subsequent encounter Take 1 (one) tablet by mouth every 4 (four) hours as needed for pain. 42 tablet 0 12/01/2016 12/08/2016 Discontinued oxyCODONE-acetaminophen 11-25-2016 - [facility] ([id number]) (PERCOCET) 5-325 mg per tablet 12-07-2016 Take 1 (one) tablet by mouth every 6 (six) hours as needed for pain Ran out 10 tablet 0 11/27/2016 12/07/2016 Suspended oxyCODONE-acetaminophen 11-22-2016 - Jose De Jesus White [facility] ([id number]) (PERCOCET) 5-325 mg per tablet 2 11-25-2016 tablet 2 tablet, Oral, Every 4 hours PRN, moderate to severe pain, Starting 11/22/16 at 1525 oxyCODONE-acetaminophen 11-11-2016 - Carolee Hunt [facility] ([id number]) (PERCOCET) 5-325 mg per tablet 11-25-2016 [place] Indications: 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 80 tablet 0 11/11/2016 11/25/2016 Discontinued adhesive bandage adhesive bandage 04-07-2017 - Mily Pollard [facility] ([place] 05-25-2017 ([id number]) DRESSING) 4 X 6 DRESSING) 4 X 6 Bndg Bndg Apply 1 Package topically 2 (two) times a day To the left mandible. 30 each 5 04/07/2017 05/25/2017 Discontinued adhesive bandage ([place] DRESSING) 04-07-2017 [facility] ([id number]) 4 X 6 Bndg Apply 1 Package topically 2 (two) times a day To the left mandible. 30 each 04/07/2017 Active adhesive bandage ([place] DRESSING) 04-07-2017 [facility] ([id number]) 4 X 6 Bndg Apply 1 Package topically 2 (two) times a day To the left mandible. 30 each 04/07/2017 Active adhesive bandage ([place] DRESSING) 04-07-2017 [facility] ([id number]) 4 X 6 Bndg Apply 1 Package topically 2 (two) times a day To the left mandible. 30 each 5 04/07/2017 Active adhesive bandage ([place] DRESSING) 04-07-2017 [facility] ([id number]) 4 X 6 Bndg Apply 1 Package topically 2 (two) times a day To the left mandible. 30 each 5 04/07/2017 Active adhesive bandage ([place] DRESSING) 04-07-2017 [facility] ([id number]) 4 X 6 Bndg Apply 1 Package topically 2 (two) times a day To the left mandible. 30 each 5 04/07/2017 Active adhesive bandage ([place] DRESSING) 04-07-2017 [facility] ([id number]) 4 X 6 Bndg Apply 1 Package topically 2 (two) times a day To the left mandible. 30 each 5 04/07/2017 Active adhesive bandage ([place] DRESSING) 04-07-2017 - 04-07-2017 [facility] ([id number]) 4 X 6 Bndg Apply 1 Package topically 2 (two) times a day To the left mandible. 30 each 04/07/2017 04/07/2017 Discontinued Albuterol 2 puff, Inhalation, Every 6 05-22-2018 - 05-27-2018 [facility] ([id number]) hours PRN, wheezing, Starting Tue05/22/18 at 0254 2 puff, Inhalation, Every 05-12-2018 - 06-05-2018 Jose De Jesus White [facility] ([id number]) 6 hours PRN, wheezing, Starting Tue05/12/18 at 1327 albuterol 90 mcg/actuation Jessenia Sahni [facility] ([id number]) inhaler Inhale 2 puffs every 6 (six) hours as needed for wheezing . Active Amoxicillin / amoxicillin-clavulanate 05-26-2018 - Tahira Pri [facility] Clavulanate (AUGMENTIN) 875-125 mg per 05-27-2018 [place] ( [id number]) tablet 1 tablet amoxicillin-clavulanate 05-26-2018 - Brittney Coles [facility] ([id number]) (AUGMENTIN) 875-125 mg per 07-21-2018 [place] tablet Take 1 (one) tablet by mouth 2 (two) times a day . 112 tablet 0 05/26/2018 07/21/2018 ampicillin-sulbactam ampicillin-sulbactam 05-24-2018 - Tahira Hayden [facility] (UNASYN) 3000 mg in (UNASYN) 3000 mg in 05-26-2018 ( [id number]) sodium chloride (NS) sodium chloride (NS) 0.9% 100 mL MBP 0.9% 100 mL MBP calcium chloride / lactated Ringers 05-26-2018 - Kim Avery [facility] ealt lactate / potassium infusion 05-27-2018 [place] ([id number]) chloride / sodium chloride lactated Ringers infusion 05-21-2018 - 05-24-2018 [facility] ([id number]) lactated Ringers infusion 05-12-2018 - 05-13-2018 [facility] ([id number]) lactated Ringers infusion 05-25-2017 - 05-31-2017 [facility] ([id number]) 25 mL/hr, Intravenous, Continuous, Starting Tue05/25/17 at 1045, KVO Restarted 05/26/2017 10:45 EST 25 mL/hr 25 mL/hr lactated Ringers infusion 03-11-2017 - 03-14-2017 Rob Brown ms [facility] ([id number]) 25 mL/hr, Intravenous, Continuous, Starting Tue03/11/17 at 0630 New Bag 03/11/2017 07:27 EST 25 mL/hr 25 mL/hr lactated Ringers infusion 12-22-2016 - 12-22-2016 [facility] ([id number]) 50 mL/hr, Intravenous, Continuous, Starting Tue12/22/16 at 1730, For 2 hours New Bag 12/22/2016 16:50 EDT 50 mL/hr 50 mL/hr lactated Ringers infusion 12-03-2016 - 12-08-2016 [facility] ([id number]) 25 mL/hr, Intravenous, Continuous, Starting Tue12/03/16 at 0730 New Bag 12/03/2016 07:31 EDT 25 mL/hr 25 mL/hr lactated Ringers infusion 11-22-2016 - 11-25-2016 [facility] ([id number]) 25 mL/hr, Intravenous, Continuous, Starting Tue11/22/16 at 1130, KVO ceFAZolin ceFAZolin (ANCEF) 12-03-2016 - Watson Lerma [facility] IVPB 2 g (premix) 12-05-2016 ([id number]) 2,000 mg, Intravenous, at 200 mL/hr, Daily, First dose on Tue12/03/16 at 1400, Indication: Other (specify) Rate/Dose Verify 12/04/2016 08:18 EDT 200 mL/hr cefTRIAXone cefTRIAXone 12-02-2016 - [facility] (ROCEPHIN) 2000 (ROCEPHIN) 2000 mg 12-03-2016 ([id number] ) mg in sodium in sodium chloride chloride (NS) (NS) 0.9% 50 mL 0.9% 50 mL MBP MBP 2,000 mg, 2,000 mg, Intravenous, Intravenous, Administer over 30 Administer over Minutes, Every 24 30 Minutes, Every hours, First dose 24 hours, First on Daphney 12/02/16 at dose on Daphney 1200, Indication: 12/02/16 at 1200, Other (specify) Indication: Other New Bag 12/02/2016 (specify) New Bag 13:17 EDT 2,000 mg 12/02/2016 13:17 100 mL/hr EDT 2,000 mg 100 mL/hr cefTRIAXone cefTRIAXone 11-25-2016 - Kim Carrion [facility] h (ROCEPHIN) 2000 (ROCEPHIN) 2000 mg 11-25-2016 ([id number] ) mg in sodium in sodium chloride chloride (NS) (NS) 0.9% 50 mL 0.9% 50 mL MBP MBP 2,000 mg, 2,000 mg, Intravenous, at Intravenous, at 100 mL/hr, Every 100 mL/hr, Every 24 hours, First 24 hours, First dose on Daphney 11/25/16 dose on Daph[place] at 1300, 11/25/16 at 1300, Indication: Indication: Mandibular Mandibular infection infection cefTRIAXone 2,000 cefTRIAXone 2,000 11-25-2016 - [facility] mg in sodium mg in sodium 12-08-2016 ([id number]) chloride 0.9 % chloride 0.9 % 0.9 0.9 % 50 mL IVPB % 50 mL IVPB Infuse 2,000 (two thousand) mg into a venous catheter daily. 7 each 5 11/25/2016 12/08/2016 Discontinued cefTRIAXone 2,000 mg in 11-25-2016 - Jorge Jamison [facility] ([id number]) sodium chloride 0.9 % 0.9 12-08-2016 % 50 mL IVPB Infuse 2,000 (two thousand) mg into a venous catheter daily. 7 each 5 11/25/2016 12/08/2016 Discontinued cefTRIAXone 2,000 mg in 11-25-2016 - Sridhar [facility] ([id number]) sodium chloride 0.9 % 0.9 01-03-2017 [place] % 50 mL IVPB Infuse 2,000 (two thousand) mg into a venous catheter daily. 7 each 11/25/2016 01/03/2017 Suspended cefTRIAXone 2,000 mg in 11-25-2016 - Sridhar [facility] ([id number]) sodium chloride 0.9 % 0.9 01-03-2017 [place] % 50 mL IVPB Infuse 2,000 (two thousand) mg into a venous catheter daily. 7 each 11/25/2016 01/03/2017 Active chlorhexidine chlorhexidine 05-22-2018 - Carroll Dennys [facility] ([id number]) (PERIDEX) 0.12 % 05-26-2018 solution 15 mL chlorhexidine (PERIDEX) 05-25-2017 - Kellie [facility] ([id number]) 0.12 % solution 15 mL by 06-14-2017 Other route 4 (four) times a day for 14 days. 120 mL 1 05/31/2017 06/14/2017 chlorhexidine (PERIDEX) 03-18-2017 - Andre Cline [facility] ([id number]) 0.12 % solution 15 mL. 05-31-2017 03/18/2017 05/31/2017 Discontinued chlorhexidine (PERIDEX) 12-02-2016 - [facility] ([id number]) 0.12 % solution 15 mL 15 03-14-2017 mL, Swab, 2 times daily, First dose on Daphney 12/02/16 at 1200 Given 12/07/2016 08:22 EDT 15 mL chlorhexidine (PERIDEX) 11-22-2016 - Jose De Jesus White [facility] ([id number]) 0.12 % solution 15 mL 15 11-25-2016 mL, Swab, 2 times daily, First dose on 11/22/16 at 2100 chlorhexidine (PERIDEX) 11-05-2016 [facility] ([id number][facility] 0.12 % solution Apply 15 11-19-2016 mL to the mouth or throat 2 (two) times a day for 14 days. 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 14 tablet 0 11/11/2016 11/18/2016 clindamycin clindamycin (CLEOCIN) 05-13-2018 - Jazmyne Ray [facility] ([id number]) 300 MG capsule Take 1 05-27-2018 (one) capsule (300 mg total) by mouth 3 (three) times a day for 5 days . 15 capsule 0 05/18/2018 05/27/2018 Discontinued clindamycin (CLEOCIN) 05-12-2018 - Melina Fried [facility] ([id number]) IVPB 600 mg (premix) 05-13-2018 clindamycin (CLEOCIN) 300 01-04-2017 - [facility] ([id number]) MG capsule Indications: 02-03-2017 Chronic osteomyelitis of facial bones (HCC) Take 1 (one) capsule (300 mg total) by mouth 3 (three) times a day. 140 capsule 0 01/18/2017 02/03/2017 Discontinued clindamycin (CLEOCIN) 300 11-11-2016 - Carolee Marilee 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 30 capsule 0 11/11/2016 11/25/2016 Discontinued clindamycin (CLEOCIN) 300 Mily Latrice [facility] ([id number]) MG capsule Take 300 mg by mouth 3 (three) times a day. Suspended docusate / 1 tablet, Oral, 2 times 05-13-2018 - [facility] ([id number]) sennosides, mcc daily, First dose on Tue05-28-2018 05/22/18 at 0900 Hold for loose stools Do Not Crush or Chew if administering orally due to bitter taste. May be crushed if given via tube. senna-docusate (SENNA-S) 05-12-2018 - [facility] ([id number]) 8.6-50 mg per tablet 1 05-13-2018 tablet senna-docusate (SENNA-S) 12-07-2016 - Erlinda Long [facility] ([id number]) 8.6-50 mg Take 1 (one) 12-28-2016 tablet by mouth 2 (two) times a day for 15 days. 30 tablet 0 12/07/2016 12/28/2016 Discontinued senna-docusate (SENNA-S) 12-02-2016 - [facility] ([id number]) 8.6-50 mg per tablet 1 12-08-2016 tablet 1 tablet, Oral, 2 times daily, First dose on [place]aph[place] 12/02/16 at 1200, NOT for abdominal surgery patients. Hold for loose stools. Do Not Crush or Chew if administering orally due to bitter taste. May be crushed if given via tube. Given 12/07/2016 08:21 EDT 1 tablet doxycycline doxycycline hyclate 02-22-2017 - [facility] ([id number]) (VIBRA-TABS) 100 MG 03-14-2017 tablet Indications: Chronic osteomyelitis of facial bones (HCC) Take 1 (one) tablet (100 mg total) by mouth 2 (two) times a day. 14 tablet 0 02/22/2017 03/14/2017 Discontinued doxycycline hyclate (VIBRA-TABS) 100 MG tablet 02-03-2017 [facility] ([id number]) Indications: Chronic osteomyelitis of facial bones (HCC) Take 1 (one) tablet (100 mg total) by mouth 2 (two) times a day. 14 tablet 0 02/03/2017 Active enoxaparin enoxaparin 05-22-2018 - Peyton Andrea [facility] ([id number]) (LOVENOX) syringe 05-27-2018 [place] 30 mg 40 mg, Subcutaneous, 05-12-2018 - 05-13-2018 Jose De Jesus White [facility] ([id number]) Daily, First dose on Tue05/12/18 at 2000 Administer in abdomen unless otherwise directed by prescriber. Notify physician if patient refuses. enoxaparin (LOVENOX) 12-21-2016 - 12-28-2016 [facility] ([id number]) syringe 40 mg 40 mg, Subcutaneous, Daily, First dose on Tue12/21/16 at 2000, Administer in abdomen unless otherwise directed by prescriber. Notify physician if patient refuses. Given 12/25/2016 19:50 EDT 40 mg Abdominal Tissue enoxaparin (LOVENOX) 12-03-2016 - 12-08-2016 [facility] ([id number]) syringe 40 mg 40 mg, Subcutaneous, Daily, First dose on Tue12/03/16 at 1215, Administer in abdomen unless otherwise directed by prescriber. Notify physician if patient refuses. Given 12/06/2016 08:04 EDT 40 mg enoxaparin (LOVENOX) 11-22-2016 - 11-25-2016 Jose De Jesus White [facility] ([id number]) syringe 40 mg 40 mg, Subcutaneous, Daily, First dose on Tue11/22/16 at 1615, Administer in abdomen unless otherwise directed by prescriber. Notify physician if patient refuses. Famotidine famotidine (PEPCID) 05-26-2018 - Carroll Noyola [facility] ([id number]) tablet 40 mg 05-27-2018 famotidine (PEPCID) injection 05-23-2018 - 05-26-2018 Carroll Gold [facility] ([id number]) 20 mg 20 mg, Oral, Daily, First 05-13-2018 - 05-13-2018 Jose De Jesus White [facility] ([id number]) dose on 05/13/18 at 0900 fentaNYL fentaNYL 05-22-2018 - Eve Rock [facility] (SUBLIMAZE) bolus (SUBLIMAZE) bolus 05-25-2018 ([id number]) from bag 50-100 from bag 50-100 mcg mcg fentaNYL fentaNYL 05-22-2018 - Debra Swanson [facility] (SUBLIMAZE) (SUBLIMAZE) 05-25-2018 [place] ([id number]) infusion 2,500 infusion 2,500 mcg/250 mL in NS mcg/250 mL in NS FLUoxetine 20 mg, Oral, 05-22-2018 - [facility] Daily, First dose 05-27-2018 ([id number]) on 05/22/18 at 0900 20 mg, Oral, Daily, First 05-13-2018 - 05-13-2018 Jose De Jesus hWite [facility] ([id number]) dose on 05/13/18 at 0900 FLUoxetine (PROZAC) 20 MG [facility] ([id number]) capsule Take 40 mg by mouth daily . 0 Active fluoxetine HCl (PROZAC 05-21-2018 [facility]az[facility]ne Ray [facility] ([id number]) ORAL) Take by mouth daily with breakfast . 0 05/21/2018 Discontinued fluoxetine HCl (PROZAC eJssenia Sahni [facility] ([id number]) ORAL) Take by mouth daily with breakfast . 0 Active fluoxetine HCl (PROZAC Jessenia Bartholow [facility] ([id number]) ORAL) Take by mouth daily with breakfast . 0 Active fluoxetine HCl (PROZAC Jessenia Bartholow [facility] ([id number]) ORAL) Take by mouth daily with breakfast . Active Glucose / Sodium dextrose 5 % and 05-24-2018 - [facility] Chloride sodium chloride 0.45 05-25-2018 ([id number]) % infusion Glycopyrrolate glycopyrrolate 05-22-2018 - Juan Carlos Octavio [facility] (ROBINUL) injection 05-22-2018 ([id number]) 0.2 mg HYDROmorphone HYDROmorphone 05-25-2017 - Ana Harris [facility] (DILAUDID) injection 05-25-2017 ([id number]) 0.25 mg 0.25 mg, Intravenous, Every 5 min PRN, moderate to severe pain, Starting Tue05/25/17 at 1335, For 8 doses, PACU (only), [] Give if fentanyl not effective or not ordered. [] Do not give more than 2.0 mg total. Given 05/25/2017 14:15 EST 0.25 mg HYDROmorphone (DILAUDID) 03-11-2017 - Luis Manuel [facility]is [facility] ([id number]) 1 mg/mL injection 0.5 mg 03-11-2017 0.5 mg, Intravenous, Every 10 min PRN, Pain, Starting 03/11/17 at 0916, For 6 doses, PACU (only), [] Give if fentanyl not effective or not ordered. [] Do not give more than 3 mg total. Given 03/11/2017 09:32 EST 0.5 mg HYDROmorphone (DILAUDID) 12-24-2016 - Yolanda Montana [facility] ([id number]) 1 mg/mL injection 0.25 mg 12-24-2016 0.25 mg, Intravenous, Every 5 min PRN, moderate to severe pain, max of 1.5mg, Starting Tue12/24/16 at 1203, For 6 doses, PACU (only) Given 12/24/2016 12:13 EDT 0.25 mg HYDROmorphone (DILAUDID) 12-22-2016 - Pihl [facility] ([id number]) 1 mg/mL injection 0.5 mg 12-22-2016 0.5 mg, Intravenous, Every 10 min PRN, moderate to severe pain, Starting 12/22/16 at 1651, For 6 doses, PACU (only), [] Give if fentanyl not effective or not ordered. [] Do not give more than 3 mg total. Given 12/22/2016 17:42 EDT 0.5 mg HYDROmorphone (DILAUDID) 12-07-2016 - [facility] ([id number]) 1 mg/mL injection 0.5 mg 12-08-2016 0.5 mg, Intravenous, Every 4 hours PRN, moderate to severe pain, Starting Tu12/07/16 at 1015 Given 12/07/2016 14:44 EDT 0.5 mg HYDROmorphone (DILAUDID) 12-06-2016 - [facility] ([id number]) 1 mg/mL injection 0.75 mg 12-07-2016 0.75 mg, Intravenous, Every 3 hours PRN, moderate to severe pain, Starting Tue12/06/16 at 1044 Given 12/06/2016 23:22 EDT 0.75 mg HYDROmorphone (DILAUDID) 12-03-2016 - [facility] ([id number]) 1 mg/mL injection 1 mg 1 12-06-2016 mg, Intravenous, Every 2 hour PRN, moderate to severe pain, Starting Tue12/03/16 at 1121 Given 12/05/2016 20:53 EDT 1 mg HYDROmorphone (DILAUDID) 12-03-2016 - [facility] ([id number]) 1 mg/mL injection 0.5 mg 12-03-2016 0.5 mg, Intravenous, Every 10 min PRN, Pain, Starting Tue12/03/16 at 0946, For 6 doses, PACU (only), [] Give if fentanyl not effective or not ordered. [] Do not give more than 3 mg total. Given 12/03/2016 10:12 EDT 0.5 mg HYDROmorphone (DILAUDID) 11-22-2016 - [facility] ([id number]) 1 mg/mL injection 0.5 mg 11-22-2016 0.5 mg, Intravenous, Every 5 min PRN, moderate to severe pain, Starting Tue11/22/16 at 1400, For 6 doses, PACU (only), [] Give if fentanyl not effective or not ordered. [] Do not give more than 3 mg total. HYDROmorphone 0.25 mg, 05-12-2018 - Suzie Pabon [facility] (DILAUDID) 0.5 mg/mL Intravenous, Every 5 05-12-2018 [place] ([id number]) injection 0.25 mg min PRN, moderate to severe pain, Starting Tue05/12/18 at 1025, For 6 doses, PACU (only) [] Do not give more than 1.5 mg total. HYDROmorphone HYDROmorphone 05-24-2018 - [facility] (DILAUDID) 0.5 mg/mL (DILAUDID) 0.5 mg/mL 05-26-2018 ([id number]) injection 0.5 mg injection 0.5 mg HYDROmorphone (DILAUDID) 05-22-2018 - Yolanda Lopez [facility] ([id number]) 0.5 mg/mL injection 0.5 05-22-2018 mg HYDROmorphone (DILAUDID) 05-21-2018 - Julio Cesar Brewer [facility] ([id number]) 0.5 mg/mL injection 0.5 05-21-2018 Jorje mg HYDROmorphone (DILAUDID) 05-21-2018 - [facility] ([id number]) 0.5 mg/mL injection 0.5 05-21-2018 mg hypochlorite sodium hypochlorite 12-22-2016 - Quique Mccallum [facility] (DAKIN'S 12-24-2016 [place] ([id number]) (HALF-STRENGTH)) 0.25 % external solution Topical, 2 times daily, First dose on Tue12/22/16 at 2100, Apply to left jaw Given 12/22/2016 21:30 EDT Ibuprofen 600 mg, Oral, 3 times 05-22-2018 - [facility] daily with meals, First 05-23-2018 (432 [id number]) dose on Tue05/22/18 at 0800 Give with Food Do Not Crush or Chew if administering orally due to bitter taste. May be crushed if given via tube. ibuprofen (ADVIL,MOTRIN) 03-18-2017 - Jazmyne Ray [facility] lt ([id number]) 600 MG tablet Take 600 mg 05-27-2018 by mouth every 8 (eight) hours as needed . 0 03/18/2017 05/27/2018 Discontinued ibuprofen (ADVIL,MOTRIN) 03-18-2017 Jessenia Sahni [facility] ([id number]) 600 MG tablet Take 600 mg by mouth every 6 (six) hours as needed . 0 03/18/2017 Active ibuprofen (ADVIL,MOTRIN) 03-11-2017 - [facility] ([id number]) tablet 600 mg 600 mg, Oral, 03-14-2017 Every 8 hours PRN, mild pain, Starting 03/11/17 at 1105, Give with Food Do Not Crush or Chew if administering orally due to bitter taste. May be crushed if given via tube. Given 03/11/2017 18:45 EST 600 mg ibuprofen (ADVIL,MOTRIN) 12-07-2016 - [facility] ([id number]) 600 MG tablet Take 1 (one) 01-11-2017 tablet (600 mg total) by mouth every 6 (six) hours for 14 days. 56 tablet 0 12/28/2016 01/11/2017 Active ibuprofen (ADVIL,MOTRIN) 12-06-2016 - Ovi Chuckdwaine [facility] ([id number]) tablet 600 mg 600 mg, Oral, 12-08-2016 Every 6 hours, First dose on Tue12/06/16 at 1200, Give with Food Do Not Crush or Chew if administering orally due to bitter taste. May be crushed if given via tube. Given 12/07/2016 23:41 EDT 600 mg ibuprofen (ADVIL,MOTRIN) 12-02-2016 - [facility] ([id number]) tablet 200 mg 200 mg, Oral, 12-06-2016 Every 6 hours PRN, fever 100.4 F or greater, headaches, mild pain, Starting Daphney 12/02/16 at 1111, Give with Food Do Not Crush or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 m2 (S/P/Bld) Glucose mass conc 139 65 - 99 mg/dL High 05-25-2018 [facility] (04799) HCO3 molar conc 24 21 - 32 mmol/L 05-25-2018 [facility] (00805) Interpretation and Abnormal 05-25-2018 [facility] review of laboratory (32818) results Potassium molar conc 4.3 3.5 - mmol/L 9 [facility] 5.1 (45477) Sodium molar conc 145 135 - mmol/L 05-25-2018 [facility] 145 (61637) Urea nitrogen mass 10 8 - 25 mg/dL 05-25-2018 [facility] conc (21124) Urea 7.2 OTH - mg/mg Low 05-25-2018 [facility] h nitrogen/Creatinine OTH (23655) mass ratio Vancomycin mass conc 17.4 mcg/mL 9 [facility] (71453) No established 05-25-2018 [facility] reference range. (43 215) Bacteria identified Polymicrobic mixture of aero bic organisms with no organism predominant. 05-25-2018 [facility] Aer cx Nom (Wound) No Staphylococcus aureus. (21977) No Beta Streptococcus Group A. No Beta Streptococcus Group B No Pseudomonas aeruginosa. Contact Microbiology within 48 hours if further workup is clinically indicated. Microscopic Many WBC 05-25-2018 [facility] observation Gram (43 215) stain Nom (Wound) Microscopic Many RBC 05-25-2018 [facility] observation Gram (43 215) stain Nom (Wound) Microscopic Many Gram Positive 9 [facility] observation Gram Cocci (43 215) stain Nom (Wound) Gram Stain 05-25-2018 [facility] th performed at [place] ( [address]) [facility] No panel information on 2018-05-24 Erythrocyte distribution 14.2 11.6 - 14.8 % [facility] (86974) width Entitic volume (RBC) Hematocrit Volume 24.3 41 - 53 % Low 05-24-2018 [facility] (39346) Fraction (Bld) Hemoglobin mass conc 7.4 13.5 - 17.5 g/dL Low 019 [facility] (82217) (Bld) Interpretation and review Abnormal 04-27 [facility] (23165) of laboratory results MCH Entitic mass (RBC) 29.1 26 - 34 pg 019 [facility] (18974) MCHC mass conc (RBC) 30.5 31 - 37 g/dL Low 9 [facility] (49719) MCV Entitic volume (RBC) 95.7 80 - 100 fL 05-24 [facility] (09802) Comment: SHORT SAMPLE Nucleated RBC #/vol 0.00 OTH - OTH 10*3/uL 05-24-2018 [facility] (Bld) (05012) Nucleated RBC/100 0.0 % 05-24-2018 [facility] WBC Ratio (Bld) (432 15) Platelet mean volume 10.2 9 - 15.5 fL 9 [facility] Entitic volume (Bld) (01355) Platelets #/vol 405 OTH - OTH 10*3/uL High 05-24-2018 [facility] (Bld) (34725) RBC #/vol (Bld) 2.54 OTH - OTH 10*6/uL Low 05-24-2018 [facility] (81393) WBC #/vol (Bld) 5.21 OTH - OTH 10*3/uL 05-24-2018 [facility] (23211) Case Report Surgical Pathology Report Case: [id number] 05-24-2018 [facility] Authorizing Provider: Felix De Leon MD Collected: 05/23/2018 01:50 PM ([id number]) Ordering Location: [facility] Received: 05/23/2018 03:45 PM Periop Pathologist: Ubaldo Hughes MD Specimen: Tooth, Please Specify, tooth Clinical information [id number] 05-24-2018 [facility] nXjRNJoEKVvx3ctGP (5 9846) VmbGFuZzEwMzNcZnR uYmpcdWMxXGRlZmYw g4yce407lQYrm7yvX WOoWtZ3uIScYROsgX CnX316k5qgw1hnhcU ayNR1GYWdJDJ7FTrc sbRyrfP5WZuxjTFfJ tM6TBwhooPwIGnbqq YyqpHbLja5XARrO97 1CDO6aMgwy5tpDHE3 UHXjRDJgZyYiYt6mv FUgC371BFUzOYQKHG UfrEw1NUMllrZgvgL peAFNj916S506m8ky XHJldnRibHtVbmtub 1nuG440GPBxfGHhey EyMjQwXHBhcGVyaDE 2BYHoAS8tarxeWlZc QP8nvebzLdPbTG4ti ea2GLQ8EEpzZTLkVu W0WIOymFXoAVJbxQl nKOmgc617YYH2TZhf b1urj9pbiGHcUnb0V GRlZnRhYjcyMFxmb3 Wqw4bzIBBqsb6rFVK 1dRRidHofd3K9ySBf XGRudGJsbnNiZGJcZ jZ4LRjxGY4nkb13GF QgTBS7rb3ulOBxoXi mtrJqeENfYJaeY8Lo EGGpn641XGSpA2EuY YXrf5B7wwHwBfQiEL NspQA7eeF2CNSnJAc 8kOWjxxX5orHldCVz R8pmuK74GtTknUJgQ 3WyqP59XuUunAScK6 XtnY7uEORpIV8vycr zn7ceFPA5PHpxAKYf SGT7GmCaSSKep2Ymr cxcAPRnd2MtK1RuuJ udE94bdXgiO61zICW egZytrY8caYyvtQ7e ZjBcZnMyNFxxbFxwb GFpblxmMFxmczIwXG kyytijAGApOGokO7q cZjBcZGJjaFxmMFxs t5ArRDHaLGViYsZyD WFuZGlibGUgZnJhY3 D2cwWhFYQblh0= Pathology report [id number] 05-24 [facility] final diagnosis fCgUVYlNZApc8glZZ (73293) Narrative VmbGFuZzEwMzNcZnR uYmpcdWMxXGRlZmYw j5lyl806gLRrq2szO EJzOgH6hTIjOPSnsP GrU164DXDhDCqxb2x mh8WmYZXxfLXcg4T8 WPNYibglkEp5tBvuK 46kt3R2FinkN5xoGT QwXGdyZWVuMFxibHV fFIO2TKTtUZE1WUul fuCdzoF9QTsedVXrG qX0VXf5b1xliZoiQY RfVBE6x8uxMIzcqyG nED2yhp9bqCq4k7ln czEgRGVmYXVsdCBQY HPpR1QcnKhbDw6qfW z6jTvmPiwpYMW9Mmk 7BY8jgd84rdi5aMnv YOQctafqYrF4AJycU QCjfgspUDe3FKnwRG JnbDcyMFxtYXJncjc ySGuiCPZzlQD8HZNb gWZsT5HsZQLzIIjqH RAlfyx3OgPcXj1hmX WjgKAcqz4iva68LKR 9l8FcwZstRYD0HDP3 QpGrHx2loEIgWDWkZ C4xSlAltYTnAPTeka 80eHriZYdkwnMwpS5 zYmRiXGZldDRcYWVu HDYgQ1kjAqBbulUeO 0fyI0IzXXEsCWKhNA EnBoEypzFmn7Jml8J kpJNkuTp4i1dlQIOi LHYhhRxsj7gmWPT9L KMeA1K3oNTik9agDK wkROOsqDM2vhumDCy gGOIxriT3cdehWWkb BLPueWH8xpO1HRCcp OKyE8CseN7iZSTdWX feDALxceu5TpGePm6 ssVKndTXpb8UdcYMd PMosP43sa060ZMExb bQzQ5ofeSCdmmwvrJ FpblxmMFxmczIwXHB ppiRel8IlQJKgZJA3 MFxzMFxsdHJwYXJcc Inyb6owH5PzqWFsWU BsYWluXGYwXGZzMjB tgCbljT9tVrGuMrMq BisiWV7wXKDsB4zuz IYkIPJbZEZsN4nnIh UmuE1fiRlaLWayMdH dIcPoNjclLZGxd6Kj QLZefXRvRSA0aR6hF HBsYWluXGYxXGZzMj JcbGFuZzEwMzNcaGl jaFxmMVxkYmNoXGYx TJeiP3kiXpTzK0WfB LUfKsCezAIhA0feIs E1HQKyKWjxTCXlVWP zMjJcbGFuZzEwMzNc aGljaFxmMVxkYmNoX JUtXVocW1pcNqNnX4 YxXGZzMjJcYlxwYXJ vwBShUZFkmlDbf2Mg TQWuTXA1KYmbWVehj FxwbGFpblxmMFxmcz IwXHBsYWluXGYxXGZ zMjJcbGFuZzEwMzNc aGljaFxmMVxkYmNoX OVoUAwtD8yzMwYzX2 YxXGZzMjJcYiAgICA cTIKQcWOdvP6hqlKk t80flWI2ZM98NZrnp DndkU4skGmrh74zM2 Crz4BsLYuklSgwZRF fd21xlOhorQ1gLmPn ZnMyMFxwYXJ9 Pathology report [id number] 05-24 [facility] gross observation aJoVUJqHPZrc4jfBA ([id number]) Narrative VmbGFuZzEwMzNcZnR uYmpcdWMxXGRlZmYw o2pmh501xKQgt0dlY PCuQqY6oJGfAEDtrU RoI523YIHzKXftrm6 dGW3nINBxtXFsr4C6 WSGTjmviuUh3g5nvZ nHcCpP8iPSsGMigC1 hhcnNldDAgQXJpYWw 0gC32ALFycO3gwDLr IDtccmVkMFxncmVlb vSqRfa4MTYrA8ohEW BbTTCgB7WrNK7xVDY tOpk6XTL8REO8MGEg ZDIxMFxncmVlbjIxM BxuuJDhDzM5OIw5f7 iahVorZPIhBYR4a2q xWOejykUuVD9zqn7y hEq4i2mwipBoMALkT VTmvKXJLWKnC0MarY cqHn7uhKg0uIfsMer gETC2Zey3MQ2zqh23 ibt5nUkjISIfahjoI bE1TMdmNUQfoyjyJS g2KWkoJZHzzMyoCBa tYXJncjcyMFxtYXJn aKA9XNZnpAMwD5JqL QFaCKjtTWJlahk7Ca CcMa5ovEHiyERepf5 voh20YQI7w0FlcGar ONG4OUB2PaBaGz4vy JSvGPVfNP7dZlYlaO OxYBFksk41aKaiERt avyPwiJ1lGcYhWIPi wODoGUSjDYBsE8dkX uJxhyRpH2ehX9BcXD JoZWFkXHBnYnJkcmZ gf2Qkk2QxdBXknHm1 b7uvFXLfQMIrxVgfs 6zpTZJ3GCSgV1U6vM Vjf3vtPRnjQBTpyXX 2nyjxTCyfUEVtlmS9 prkuWZpxWMZopJH0g aB4MYUjdSUdZ8ZjoA 4xNDQwXGhlYWRlcnk 4EaNlOc0hsBCfcYAk k3ClfACxDGqkR03zf 199SJEbeeUpE9crgV FpblxwbGFpblxmMFx mczIwXHFsXHBsYWlu XGYwXGZzMjBccGxha J3aOxJcUdQyTZvuAM 6sAVIqJ9wcaZQmKGJ pFPBhJ6kcHnPygQ4r aFxmMVxjZjFcZnMyM FxsdHJjaCBSZWNlaX FoCUXawoNqo5XzTYt pbiBsYWJlbGVkICJc wJirlN3eUjMdRrRoN BbbTL4aIWBvB8hdwO YyWBKfAANtX2opTwM avM1ewZdtTNnrStPl WaHvYCuqhe22QQN1i 1xmaWVsZHtcKlxmbG OffvL8TFxWEOEDLCk IVuQrHE9mBAaLGldU RUdJTnwzODAwMXwwf HLLMQxCJ8d7KBBGFN 3jPHwyJss9JD03CFN xQDTkuYTmLPiwL622 XHBsYWluXGYxXGZzM jBcbGFuZzEwMzNcaG ljaFxmMVxkYmNoXGY jDSicJ7zlGqWwN1Gi XGZzMjBccHJvdGVjd YHKNQjva5KtZUObqP rzG3moiPBmmfgxPFr mczIwXGxhbmcxMDMz SNipB2toAjKtPKKfg XjxCQsjp9WdFOAjEF RwCAejhaHcVKTgp9Y rU9M9YONrRTpuw1vw JIOdMKzpe6LiLKtES OUNDS3OZX8uzOK5BJ hSK8GEKQbwLRJzSBm vmRIKCQkMC4i7MJXD BA6kHSiaZmi1QJ88R GZsZHJzbHQgXCcxY3 19XHBsYWluXGYxXGZ zMjBcbGFuZzEwMzNc aGljaFxmMVxkYmNoX GHfCUyjC7bpLuUmK2 UcNVKtCoAbzTPgU8d gIiBhbmQgZGVzaWdu YXRlZCAiXHBsYWluX UHpTAPqUfBayF3oqI oryRoplZ1cZoYoPrT cHTdkGT8mQZTzG2ue wIZfEVTfGUWeB6weZ pHunG5zeIvnYEpyVr FcZnMyMFxsdHJjaCA iXHBsYWluXGYyXGZz MyBaHSXdDJEqs77pc UJ8qtXbMjWnOXUzQP Q7GUKfJJH5SPBkXAF vqTBihnRsK1LiABBb tQ6sORLikClgwPKiw dAtTUD9vZXsvGrlLk MhK77wmuLtDAVxoxI rkIwgm9rrCvDcMWJb oeTfDLQoc6PwZqPaD WrlNMQlp9JeXDaoQD B7Mh7ksFFzZYAuo2Z hR2Tcx7HxXOwdwJti TOPwy42iz94rtO5gQ HBhclxwYXIgVlMvS0 xpK574EJkxNAOtfLV dEXher6VtJRX6FU0h dxA7jX9eNETqpiHtl b8xYFRivMinTjq7PP AbuDPwHA0rfCooSRf opLFEi9BcoQLnwNBv JAN6WkKoC9rldnRcp zl1WHZslwZwXKDlOM VfW05ftM9uuKClYW3 TMPXbKuU5FvxuDXS1 Anion gap molar conc 19 10 - 20 mmol/L 9 [facility] (48692) Calcium mass conc 8.1 8.4 - mg/dL Low 05-24-2018 [facility] (57663) Chloride molar conc 109 98 - 108 mmol/L High 05-24-2018 [facility] (92296) Creatinine mass conc 1.74 0.5 - 1.3 mg/dL High 9 [facility] (80778) GFR/1.73 sq M The eGFR should 05-24-2018 [facility] predicted among be used for (4 0585) non-blacks MDRD vol monitoring renal rate/area (S/P/Bld) function only and not for medication dosing. GFR/1.73 sq 48 >=60 Low 05-24-2018 [facility] lth M.predicted CKD-EPI mL/min/1. (08512) vol rate/area 73 m2 (S/P/Bld) Glucose mass conc 74 65 - 99 mg/dL 05-24-2018 [facility] (65350) HCO3 molar conc 19 21 - 32 mmol/L Low 05-24-2018 [facility] (68911) Interpretation and Abnormal 05-24-2018 [facility] review of laboratory (78950) results Potassium molar conc 4.5 3.5 - 5.1 mmol/L 9 [facility] (10106) Sodium molar conc 142 135 - 145 mmol/L 05-24-2018 [facility] (63031) Urea nitrogen mass 18 8 - 25 mg/dL 05-24-2018 [facility] conc (35094) Urea 10.3 OTH - OTH mg/mg 05-24-2018 [facility] h nitrogen/Creatinine (46337) mass ratio Vancomycin mass conc 22.2 mcg/mL 9 [facility] (49129) No established 05-24-2018 [facility] reference range. (43 215) No panel information on 2018-05-23 Vancomycin mass conc 34.4 mcg/mL 9 [facility] (21988) No established 05-23-2018 [facility] reference range. (43 215) Glucose mass conc 88 65 - 99 mg/dL 05-23-2018 [facility] (47282) Interpretation and Normal 05-23-2018 [facility] review of laboratory (29474) results Case Report Surgical Pathology Report Case: [id number] 05-23-2018 [facility] Authorizing Provider: Felix De Leon MD Collected: 05/22/2018 10:00 AM ([id number]) Ordering Location: [facility] Received: 05/22/2018 10:30 AM Periop Pathologist: Luis Manuel Flores MD Specimen: Bone, Please Specify, left jaw bone Pathology report [id number] 2018 [facility] final diagnosis SrPqZOTqKMXqr8oy ([id number]) Narrative ZGVmbGFuZzEwMzNc ZnRuYmpcdWMxXGRl WhTnn8ain258dVPz m9dbZHIbNyR8eRHn IJMpfSLdK220JTRh DNkti9qtp7HnMAOs oYNyd2P3QMHNwotw lTu4dAtsG79mg4V4 MhavJ7nvKECfKYuz ZWVuMFxibHVlMCA7 XGAyDNL5MLddsvDa nuI1ZYhebOLuBnP1 SKc6k1fluJpzNPYy LAA2j4xdFEyzwmEu PW7qve2rfBe7v7vl czEgRGVmYXVsdCBQ OFIpD6VttOsgQm2h yGt8nVliNfebUXE6 Kvq9VG0rgi06rmd8 fVxwYXBlcncxMjI0 MFxwYXBlcmgxNTg0 MFxtYXJnbDcyMFxt YXJncjcyMFxtYXJn uER3OIDdfWEtM6Ij NDQwXGhlYWRlcnk3 NjUzLp5toGBqoUPl jq6mis85XFS1r6Ko yLmcIKT3ICY4RjEb Bf9gcLAuLFGkOE2m UfGbcJCcXZUrzd85 eTmrQAhaxzPkdT4f YmRiXGZldDRcYWVu DT0mmFLsBVEfmH9p cmxjXHBnYnJkcmhl HKUbkGtaekInWp5l wUkgFWM0IXkyT9ro gR5hPgZ2KYitD3lx tF4aANb7ZUvdkJU8 GQPukI4vHE3qnacy d5phMyWrNH1ponfh t3lrRiOoWM6krld5 w6pfUDH2YGrlHCFc ZxI4xcL4YOWidAHy ASYleLdhCTvxy637 RQJ8CTagRdbdIXnq XHBnbmNvbnRccGdu ZGVjXHBsYWluXHBs YWluXGYwXGZzMjBc wClskVdloE8eVsQj ZnMyMFxwbGFpblxm MVxmczIyXGxhbmcx BOOiOKljE4opMlKk RFDelFviBFaws3Sx XGYxXGNmMVxmczIy XGJccGFyIExlZnQg ykX1OTQshsMxYQAc PoGkJIUbQE30Dkkj YXJccGFyXGxpNzIw XHBsYWluXGYwXGZz IsBruWxuxV1eVzJs LxGxSpldXL5qHQUx I9jmcAPoFNRqQGMa G6gpWnVxnI6fsSer MVxjZjFcZnMyMlxi PTYynTQvDI8mdXNz dQrvgTz0eVLiQWQe ylgleARnbQydmA9n ZjBcZnMyMFxwbGFp blxmMVxmczIyXGxh qylmWAAyHGzaF9mr ZjFcZGJjaFxmMVxs x9JpRDEwJDUfHLda czIyXGJccGFyXHBs YWluXGYxXGZzMTZc bGFuZzEwMzNcaGlj aFxmMVxkYmNoXGYx UYpdY2nsHjRzO6Kr TQEyVLOkHnJWQ675 x6zdfAGmelycTCsc czIyXGxhbmcxMDMz OQqwW3tsGnOsPGBq tQjhCOunn2CkKWZh XGNmMVxmczIyXGJc cGFyXHBhclxwbGFp blxmMFxmczIwXHBh cn0= Pathology report d2dtbIXkYAVmyUYg 2018 [facility] gross observation WbBkGQPvJEJop3kr ([id number]) Narrative ZGVmbGFuZzEwMzNc ZnRuYmpcdWMxXGRl AgVrb3rxp273qJNg z8xtGCFtWnG3fWKu FLZxhAIeD548VFDw ZWqvey9zHV0aMNXn nTUxw2R0WMOMbuef sPg9n6fbTlUiTaJ3 cVJbUDmwL9eimjFj fVOlPXQcHCe2gN40 QJBhtZ3wcEVvXRfv cmVkMFxncmVlbjBc Jpx2RWVwY1pcTZLu AYVfW3ZcLP4fZDQo Zxh0EBZ4YZE9ZRHj ZDIyMVxncmVlbjI0 YGiewCJfCuR5AQi5 b3tgfOiyWRWaFFI4 n2spZWejrlBfYA4e qh2lfCt7s7sotyVp RGVmYXVsdCBQYXJh N8NlcItlCd1eqCy1 vPhiQrnxNXO5Bsj1 PG3nnn95qjr5yRaj FQFtvtbwKzB4HIcs NBZilvqeKIb9RYdg YXJnbDcyMFxtYXJn cjcyMFxtYXJndDE0 KEFnfLIzU6HjMTId SYluEGGcyil0KsCn Vl6rfMNbaRDyjq1a yf25UIF8g2IaxLoi MKJ9WSK0OaMsOx3c hMFdSKAsBT1rXhPe eTWbUGEfye53pLgr PFudatSvoW8fVdHo XGZldDRcYWVuZGRv X1lyJkVxsiCrB8qr N9YhNNKrMKRyXYNc UrZfiaCat6Ljk3Bi eKSwxGd0x7kaPPDz EJDhrAotz2zmSES9 QTSxO9G3cMHku2br DJimWMDrwSO4fmts ZPgnXBYrmyE4vqer ORsfFZXmhUI5zgB9 PCFciOSdP2MieS9r NDQwXGhlYWRlcnk3 BnFnYu8vaEDffHMv w5GjlEXePZojY46r t552CFOsftBdM7oi bGFpblxwbGFpblxm MFxmczIwXHFsXHBs YWluXGYwXGZzMjBc hNralO0dGgMkHnMa FEyoCP7oWCNuU5gg rDAoYUMlGNPbM4cp ZsTfiT3kjBozKZke ZjFcZnMyMFxsdHJj aCBSZWNlaXZlZCBp xvInz2KlVPedooOn YWJlbGVkICJccGxh fB5zVtMxSfEyEHup HA3vDPWxW5wrfHZu GCWvNIWpF7geEgFb mP7mvYgeXZirWdXa ZqQcMNomws94FQN5 d8tlpXQzECdvRjkq lZTikuQ7DOlUVEFM YZhNVlXhLJ1fISkO TktCRUdJTnwzODAw CPoopOZJDQiOM9f4 PNRLMR7fKUthOno5 CG97QBXfCDPszOSb LAdtW442ZVHgRWaa XGYxXGZzMjBcbGFu ZzEwMzNcaGljaFxm MVxkYmNoXGYxXGxv H8rjBgMaH8TtXXAz MjBccHJvdGVjdCBU WTuqo1SmWGQqqLpp Z2awaZThyicdLVgn czIwXGxhbmcxMDMz NOffP2eyEfJvRDSy mNezVKlmc1LiMNZe XGNmMVxmczIwXHBy u2HfL1O8RSEfOQpr t1ahAUHxQLoxs1Ut TGbFASZOBE9VVQ7b yRW7ZEoSL1CHPTsr ODAwMXwwfERCTElO H2u7DCYNCV1mYEeo Uan8ZO62PMPpKIMm iWZkESjlB915WUNk YWluXGYxXGZzMjBc bGFuZzEwMzNcaGlj aFxmMVxkYmNoXGYx QCkuY0mgQoZxF5Fz OETbNyGoxIQmW3bn IiBhbmQgZGVzaWdu YXRlZCAiXHBsYWlu XGYyXGZzMjAgbGVm uVUmKYvkvNqpvV5q BvZlWmWuMSbcNG4l KCPsI1umuFSpNRPc TUMlE3btYnLwyD1a aFxmMVxjZjFcZnMy MFxsdHJjaCAiXHBs YWluXGYyXGZzMjAg HKfcUEFroyCkY3Ey YQLlqxTva89vt9Er Kr9zHWfzXe7eQEmv SM09LVsiGP32JQQv LiAgVGhlIHNwZWNp aGMhFRchGKKqi1Fu dGVkLiAgQWxsIDIv IE4aCQXqG7AgU4ac aWVkLlxwYXJccGFy LMwLUd7FZXwhDAQh IFxwYXJccGFyIEdy y7VkTBF1EW6ijtT2 zX8zHEGhhgDypf7i YKAehKjqIsy3SKTn iGEqLJ5agIhrRGuy eUYIw7SilBBzhBIf KPK0QlZiJ9ynqkBh kzp4YQHuldGfGFTj NAZpE65nkQ5ueWGu NL1SEMEpBhC4SLTg cn0= Pathology report v6jhiAPwLAVrkQWm 2018 [facility] VyKiYQUgUSZgo9cl ( [id number]) observation ZGVmbGFuZzEwMzNc Narrative Other ZnRuYmpcdWMxXGRl stain NrEng4lax113pNJl f2hrPFVpDcZ6aMJp DFAkoJBmH733RAFa JRhpj8gxk8RyRPAu kPRjk8W8FFATurja fLh0pKtjI58dy6B3 WuysX3ygICZqGAFz W4LjBC2eRYXgSjk1 POP2SHQ0PXCzXLPk V2NnJO5tWSDvmLRr ZMb8g5lbkUumTGBj APF8n5reFXemvkFf KC1dsl9icYs8f9yk czEgRGVmYXVsdCBQ KFAdN1BbuDlzYu6d gEl0nGjmVgnbCIE0 Ujw9HG9ord25xqs7 fVxwYXBlcncxMjI0 MFxwYXBlcmgxNTg0 WFebTOEjxIX5BNPh oHIkR9XiUBQfUM3c pti3NXB1SKanHFNn KbQ1VBEncTEhDYBr kWmsSEzxj847OJX1 AiLxYW8qI8Fjr0P7 lE8slMLiMFFjsVSo FgEiOTSbmw0ltSOz VGjpt2MiDDH9szE2 tBQyuMCcQQLbZW52 Xtdyp7RxEpadBEV9 NVJnheRgs5Ktf3fy PvAzfwHqB0xjP8Bp ZHJoZWFkXHBnYnJk noGcz0Gwq7CfqQFa jRq1n7spFOPdWHJb vHrsz8hvAVR8EVRq O2H9iUBkm9nkQRao GPHlnON0ymT9PVIb cQUvK3VarX6pMOSc FA5mhrv4g8toDMQ8 UHhaGNXsTiY8ldS0 NDBcaGVhZGVyeTcy GOejh547UNQ7ZjYb WGNmr3RxO4TdkAus V53kbOujT90kTTYb xPyusQ8vhNnogD1s ZjBcZnMyNFxxbFxw bGFpblxmMVxmczIw XGxhbmcxMDMzXGhp V5fmYaWkPEPqdNjr QVwin7SsHQIaUGPa WoFhNLtjtu7sP49m aWMgZXhhbWluYXRp x88qgTYqlAYjMr9v bWVkLlxwYXJ9 Erythrocyte 13.9 11.6 - 14.8 % 05-23-2018 [facility] ealth distribution width ( 53218) Entitic volume (RBC) Hematocrit Volume 26.5 41 - 53 % Low 05-23-2018 [facility] Fraction (Bld) (4321 5) Hemoglobin mass conc 8.6 13.5 - 17.5 g/dL Low 019 [facility] (Bld) (84909) Interpretation and Abnormal 05-23-2018 [facility] review of laboratory (28362) results MCH Entitic mass 28.9 26 - 34 pg 05-23-2018 [facility] (RBC) (52391) MCHC mass conc (RBC) 32.5 31 - 37 g/dL 9 [facility] (98524) MCV Entitic volume 88.9 80 - 100 fL 05-23-2018 [facility] (RBC) (83201) Nucleated RBC #/vol 0.00 OTH - OTH 10*3/uL 05-23-2018 [facility] (Bld) (66610) Nucleated RBC/100 0.0 % 05-23-2018 [facility] WBC Ratio (Bld) (432 15) Platelet mean volume 10.6 9 - 15.5 fL 9 [facility] Entitic volume (Bld) (14969) Platelets #/vol 419 OTH - OTH 10*3/uL High 05-23-2018 [facility] (Bld) (62239) RBC #/vol (Bld) 2.98 OTH - OTH 10*6/uL Low 05-23-2018 [facility] (45944) WBC #/vol (Bld) 8.47 OTH - OTH 10*3/uL 05-23-2018 [facility] (69127) Anion gap molar conc 17 10 - 20 mmol/L 9 [facility] (69226) Calcium mass conc 8.3 8.4 - 10.2 mg/dL Low 05-23-2018 [facility] (40576) Chloride molar conc 106 98 - 108 mmol/L 05-23-2018 [facility] (16285) Creatinine mass conc 1.65 0.5 - 1.3 mg/dL High 9 [facility] (29204) GFR/1.73 sq M The eGFR should 05-23-2018 [facility] predicted among be used for (4 9835) non-blacks MDRD vol monitoring renal rate/area (S/P/Bld) function only and not for medication dosing. GFR/1.73 sq 52 >=60 Low 05-23-2018 [facility] lth M.predicted CKD-EPI mL/min/1.73 (92905) vol rate/area m2 (S/P/Bld) Glucose mass conc 79 65 - 99 mg/dL 05-23-2018 [facility] (20398) HCO3 molar conc 20 21 - 32 mmol/L Low 05-23-2018 [facility] (51938) Interpretation and Abnormal 05-23-2018 [facility] review of laboratory (98929) results Potassium molar conc 4.4 3.5 - 5.1 mmol/L 9 [facility] (72545) Sodium molar conc 139 135 - 145 mmol/L 05-23-2018 [facility] (06188) Urea nitrogen mass 21 8 - 25 mg/dL 05-23-2018 [facility] conc (34467) Urea 12.7 OTH - OTH mg/mg 05-23-2018 [facility] h nitrogen/Creatinine (40578) mass ratio Base excess -1.6 OTH - OTH mmol/L 05-23-2018 [facility] Calculated molar (43 215) conc (Bld) Calcium.ionized mass 4.5 4.5 - 5.3 mg/dL 9 [facility] conc (47843) Carboxyhemoglobin/He 1.0 OTH - OTH 9 [facility] moglobin.total mass (10669) fraction (BldA) Comment: Reference Ranges: [facility] Non-smokers:<1.5% Smokers:1.5-5.0% Heavy Smokers:5.0-9.0% CO2 ppres (Bld) 37.7 OTH - OTH mm[Hg] 05-23-2018 [facility] (17645) Glucose mass conc 79 65 - 99 mg/dL 05-23-2018 [facility] (66069) HCO3 molar conc (Bld) 22.5 22 - 26 mmol/L 05-23-19 19 [facility] (52961) Hematocrit Volume 26.3 41 - 53 % Low 05-23-2018 [facility] Fraction (BldA) (432 15) Hemoglobin mass conc 8.5 13.5 - 18 g/dL Low 9 [facility] (Bld) (83484) Inhaled oxygen 30 %/L 05-23-2018 [facility] concentration (51779 ) Interpretation and Abnormal 05-23-2018 [facility] review of laboratory (99303) results Lactate molar conc 0.6 0.6 - 2 mmol/L 05-23-2018 [facility] (62846) Methemoglobin/Hemoglo 0.6 0 - 2 % 05-23-19 19 [facility] bin.total mass (4321 5) fraction (BldA) Oxygen ppres (Bld) 131 OTH - OTH mm[Hg] High 05-23-2018 [facility] (81010) Oxyhemoglobin/Hemoglo 97.1 94 - 98 % 05-23-19 19 [facility] bin.total mass (4321 5) fraction (BldA) PEEP Respiratory 5 [facility] (53931) pH (Bld) 7.39 OTH - OTH [pH] [facility]-23-[facility] Potassium molar conc 3.7 3.5 - 5.1 mmol/L 9 [facility] (15833) SaO2% mass fraction 98.7 92 - 99 % 05-23-2018 [facility] (BldA) (26905) Sodium molar conc 134 135 - 145 mmol/L Low 05-23-2018 [facility] (39297) Tidal volume setting 430 9 [facility] Ventilator (70059) Type of Oxygen Ventilator 05-23-2018 [facility] saturation device (4 8395) ABO and Rh group Nom O Positive 05-23-19 [facility] (Bld) (78806) Blood group antibody Negative 9 [facility] screen Ql (68607) Specimen Expires 05/26/2018 23:59 2018 [facility] EST (86777) Anion gap molar conc 15 10 - 20 mmol/L 9 [facility] (91012) Calcium mass conc 8.3 8.4 - mg/dL Low 05-23-2018 [facility] 10.2 (60066) Chloride molar conc 102 98 - 108 mmol/L 05-23-2018 [facility] (74452) Creatinine mass conc 1.63 0.5 - 1.3 mg/dL High 9 [facility] (00986) GFR/1.73 sq M The eGFR should 05-23-2018 [facility] predicted among be used for (4 1219) non-blacks MDRD vol monitoring renal rate/area (S/P/Bld) function only and not for medication dosing. GFR/1.73 sq 52 >=60 Low 05-23-2018 [facility] M.predicted CKD-EPI mL/min/1. (56779) vol rate/area 73 m2 (S/P/Bld) Glucose mass conc 77 65 - 99 mg/dL 05-23-2018 [facility] (28219) HCO3 molar conc 21 21 - 32 mmol/L 05-23-2018 [facility] (65759) Interpretation and Abnormal 05-23-2018 [facility] review of laboratory (88936) results Potassium molar conc 4.1 3.5 - 5.1 mmol/L 9 [facility] (20239) Sodium molar conc 134 135 - 145 mmol/L Low 05-23-2018 [facility] (45881) Urea nitrogen mass 21 8 - 25 mg/dL 05-23-2018 [facility] conc (82977) Urea 12.9 OTH - OTH mg/mg 05-23-2018 [facility] h nitrogen/Creatinine (32701) mass ratio Glucose mass conc 83 65 - 99 mg/dL 05-23-2018 [facility] (55302) Interpretation and Normal 05-23-2018 [facility] review of laboratory (47520) results xr chest pa/ap on 2 XR CHEST PA/AP EXAMINATION: Normal 05-22-2018 [facility] SINGLE XRAY VIEW OF THE CHEST Center (26871) 05/22/2018 1:17 pm COMPARISON: Chest radiograph 03/11/2017. HISTORY: ORDERING SYSTEM PROVIDED HISTORY: VENT; TECHNOLOGIST PROVIDED HISTORY: Reason for Exam: VENT Illness/Other Acuity: Unknown Surgery, Radiation History: unk Type of Encounter: Ongoing Additional signs and symptoms: unk ORDERING SYSTEM PROVIDED DIAGNOSIS CODES: L02.91 Abscess FINDINGS: The endotracheal tube terminates approximately 2 cm above th e jerardo. The tip of the enteric tube is below the diaphragm but not inclu ded in the field of view. The side port is in the gastric fundus. The cardiomediastinal silhouette is within normal limits. Shallo w inspiration. No pneumothorax, vascular congestion, consolida tion, or pleural effusion is identified. No acute osseous abnormality . IMPRESSION: 1. Endotracheal tube approximately 2 cm above the jerardo. 2. No acute process. Workstation ID: [id number] Dictated by: ALVARO GARCIA on TueMay 22, 2018 3:48:15 PM EST Transcribed by: ALVARO GARCIA on TueMay 22, 2018 3:48:15 PM EST Finalized by: ALVARO GARCIA on TueMay 22, 2018 3:48:15 PM EST Comment: Order Comment: Reason for ex am?:VENT Injury/Trauma or Illness?:Il lness/Other How long have you had these symptoms (acute/chronic)?:Unknown History of cancer?:n/a Surgeries, chemotherapy, or radiation?:unk Type of Exam?:Ongoing Additional signs and symptom s?:unk xr abdomen /kub/flat plate/1 view on 2018-05-22 XR ABDOMEN EXAMINATION: Normal 05-22-2018 [facility] /KUB/FLAT PLATE/1 SINGLE SUPINE XRAY VIEW(S) OF THE ABDOMEN Center (79471) VIEW 05/22/2018 1:17 pm COMPARISON: [facility] 08/26/2016. HISTORY: ORDERING SYSTEM PROVIDED HISTORY: ngt placement; TECHNOLOGIST PROVIDED HISTORY: Reason for Exam: ngt placement Illness/Other Acuity: Unknown Surgery, Radiation History: unk Type of Encounter: Ongoing Additional signs and symptoms: unk ORDERING SYSTEM PROVIDED DIAGNOSIS CODES: L02.91 Abscess FINDINGS: The tip of the enteric tube is in the gastric body and the s danii port is in the gastric fundus. Mildly increased stool in the colon. Non specific bowel gas pattern without evidence of obstruction. No eviden ce of pneumoperitoneum. No acute osseous abnormality. IMPRESSION: Tip of the enteric tube in the gastric body and side port in the gastric fundus. Non-specific bowel gas pattern without evidence of o bstruction. Workstation ID: [id number] Dictated by: ALVARO GARCIA on TueMay 22, 2018 3:49:11 PM EST Transcribed by: ALVARO GARCIA on TueMay 22, 2018 3:49:11 PM EST Finalized by: ALVARO GARCIA on TueMay 22, 2018 3:49:11 PM EST Comment: Order Comment: Reason for ex am?:ngt placement Injury/Trauma or Illness?:Il lness/Other How long have you had these symptoms (acute/chronic)?:Unknown History of cancer?:n/a Surgeries, chemotherapy, or radiation?:unk Type of Exam?:Ongoing Additional signs and symptom s?:unk No panel information on 2018-05-22 Tip of the enteric tube in the gastric body and 05-22-2018 [facility] (17629) side port in the gastric fundus. Non-specific bowel gas pattern without evidence of obstruction. Workstation ID: [id number] EXAMINATION: SINGLE SUPINE XRAY VIEW(S) OF THE 05-22-2018 [facility] (64801) ABDOMEN 05/22/2018 1:17 pm COMPARISON: [facility] 08/26/2016. HISTORY: ORDERING SYSTEM PROVIDED HISTORY: ngt placement; TECHNOLOGIST PROVIDED HISTORY: Reason for Exam: ngt placement Illness/Other Acuity: Unknown Surgery, Radiation History: unk Type of Encounter: Ongoing Additional signs and symptoms: unk ORDERING SYSTEM PROVIDED DIAGNOSIS CODES: L02.91 Abscess FINDINGS: The tip of the enteric tube is in the gastric body and the side port is in the gastric fundus. Mildly increased stool in the colon. Nonspecific bowel gas pattern without evidence of obstruction. No evidence of pneumoperitoneum. No acute osseous abnormality. Interface, Rad In Fuji Speechq - 05/22/2018 3:51 PM EST EX AMINATION: 05-22-2018 [facility] ([id number]) SINGLE SUPINE XRAY VIEW(S) OF THE ABDOMEN 05/22/2018 1:17 pm COMPARISON: [facility] 08/26/2016. HISTORY: ORDERING SYSTEM PROVIDED HISTORY: ngt placement; TECHNOLOGIST PROVIDED HISTORY: Reason for Exam: ngt placement Illness/Other Acuity: Unknown Surgery, Radiation History: unk Type of Encounter: Ongoing Additional signs and symptoms: unk ORDERING SYSTEM PROVIDED DIAGNOSIS CODES: L02.91 Abscess FINDINGS: The tip of the enteric tube is in the gastric body and the side port is in the gastric fundus. Mildly increased stool in the colon. Nonspecific bowel gas pattern without evidence of obstruction. No evid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 ([facility]) Zoe Sultana tructive Surgeons 12-21-2016 Postop follow-up Chronic osteomyelitis Mony Ovi [facility] Plastic & visit of facial bones (HCC) Zoe Sultana tructive Surgeons 12-15-2016 Postop follow-up Open fracture of body Tahira Torrese [facility] & visit of mandible Becky Reconstructive Surgeons Procedures Procedure Name Date Provider Location Basic metabolic 2000 panel 05-27-2018 Yolanda Lopez [facility] ([id number]) - Serum or Plasma Complete blood count 05-27-2018 Brittney PillaiSharyn German [facility] (58169) (hemogram) panel - Blood by Automated count Glucose [Mass/volume] in 05-27-2018 Tru Mendes [facility] (26985) Blood [place] Vancomycin [Mass/volume] in 05-26-2018 Carroll Noyola [facility] (45680) Serum or Plasma --trough Basic metabolic 2000 panel 05-26-2018 Yolanda Lopez [facility] (08024) - Serum or Plasma Basic metabolic 2000 panel 05-25-2018 Yolanda Lopez [facility] (16164) - Serum or Plasma Vancomycin [Mass/volume] in 05-25-2018 Debra Swanson Merrill [facility] (74183) Serum or Plasma Complete blood count 05-24-2018 [facility] (63155) (hemogram) panel - Blood by Automated count Basic metabolic 2000 panel 05-24-2018 Yolanda Beasley [facility] (86335) - Serum or Plasma Vancomycin [Mass/volume] in 05-24-2018 [facility] (37426) Serum or Plasma Vancomycin [Mass/volume] in 05-23-2018 [facility] (84495) Serum or Plasma Procedure on tissue 05-23-2018 [facility] (01339) specimen DEBRIDEMENT WITH WOUND 05-23-2018 - [facility] (55496) CLOSURE HEAD AND NECK 05-23-2018 Glucose [Mass/volume] in 05-23-2018 [facility] (76230) Blood [place] Basic metabolic 2000 panel 05-23-[address] [facility] (93780) - Serum or Plasma Complete blood count 05-23-2018 Ashok [facility] (10483) (hemogram) panel - Blood by Automated count Analysis of arterial blood 05-23-2018 Ashok [facility] (61098) gases and pH Glucose [Mass/volume] in 05-23-2018 [facility] (95242) Blood [place] Basic metabolic 2000 panel 05-23-2018 Yolanda Beasley [facility] (34028) - Serum or Plasma Blood type and Indirect 05-23-2018 Peyton Amador [facility] (35181) antibody screen panel - Blood Radiography of 05-22-2018 Karen Devi [facility] (53132) [id number] Radiologic exam chest 05-22-2018 Karen Devi [facility] (13330) single view Procedure on tissue 05-22-2018 [facility] (07287) specimen Aerobic microbial culture 05-22-2018 [facility] (02333[facility] Culture bacterial any 05-22-2018 [facility] (43172) source anaerobic iso&id INCISION AND DRAINAGE 05-22-2018 - Leon De Leon [facility] (35259) HEAD/NECK 05-22-2018 Computerized tomography, 05-22-2018 Tru Mendes [facility] (18173) limited studies [place] Basic metabolic 2000 panel 05-21-2018 [facility] ealt (92067) - Serum or Plasma Jorje Complete blood count with 05-21-2018 [facility] (72194) white cell differential, Jorje automated Complete blood count with 05-21-2018 [facility] (95268) white cell differential, Jorje manual INR in Platelet poor plasma 05-21-2018 [facility] (35060) by Coagulation assay Jorje Red blood cell morphology 05-21-2018 [facility] (72201) Jorje Complete blood count 05-12-2018 Mony Enriquez [facility] (40424) (hemogram) panel - Blood by Automated count Radiologic examination 05-12-2018 [facility]ton [facility] (77858[facility] femur minimum 2 views Basic metabolic 1998 panel 05-12-2018 Mony Enriquez [facility] (27159) - Serum or Plasma Fluoroscopy up to 1 hour 05-12-2018 Kavitha Antonio [facility] (72020) physician/qhp time Basic metabolic 2000 panel 04-24-2018 - [facility] (41913[facility] - Serum or Plasma 04-24-2018 Hemoglobin and Hematocrit 04-24-2018 - Mony Leiva [facility] (38903) panel - Blood 04-24-2018 CT of maxillofacial area 02-23-2018 - Mony [facility] (56241) without contrast 02-23-2018 LEFT JAW ABSCESS INCISION 05-28-2017 - Mony Conde [facility] (06833) AND DRAINAGE, REMOVAL OF 05-28-2017 JAW SCREWS AND WIRES ILIAC CREST BONE GRAFT 05-25-2017 - Mony Conde [facility] (98741) 05-25-2017 INTERMAXILLARY FIXATION 05-25-2017 - Mony Conde [facility] ealt (37442) APPLICATION 05-25-2017 MANDIBLE OPEN REDUCTION 05-25-2017 - [facility] (65243[facility] INTERNAL FIXATION 05-25-2017 FASCIAL FLAP ROTATIONAL 03-11-2017 - [facility]35692[facility] 03-11-2017 LEFT KNEE WOUND [facility]ISION 03-11-2017 [facility]78677[facility] AND DRAINAGE POSSIBLE 03-11-2017 [facility] EXTENSOR MECHANISM REPAIR POSSIBLE PATELLA HARDWARE 03-11-2017 - Anuj Carranza alth (15708) REMOVAL 03-11-2017 [facility] REMOVAL EXTERNAL FIXATOR 03-11-2017 - [facility] (83958) 03-11-2017 LEFT PECTORAL FLAP 12-24-2016 - [facility] (12813) ADVACEMENT FOR CLOSURE 12-24-2016 LEFT JAW FLAP DEBRIDEMENT 12-22-2016 - [facility] (98490) W/ POSSIBLE CLOSURE 12-22-2016 PECTORALIS MAJOR MUSCLE 12-03-2016 - [facility] (83024) FLAP TO JAW SPLIT THICKNESS 12-03-2016 SKIN GRAFT LEFT MANDIBLE DEBRIDEMENT MANDIBLE IMF SCREW REMOVAL 11-22-2016 - [facility] (63740) 11-22-2016 Plan of Treatment Plan Description Date Location TETANUS EVERY 10 YR TETANUS EVERY 10 YR 08-27-2026 - [facility] ([id number]) 08-27-2026 TETANUS EVERY 10 YR TETANUS EVERY 10 YR 08-27-2026 - [facility] (70566) 08-27-2026 Office Visit 01/02/2019 Office Visit 01-02-2019 - [facility] Physician Zaynab De Leon, 01-02-2019 Group, N euroscience MD Leon [address] [address] [phone] Juwan Metcalf MD [address] [address] [phone] SEQUENTIAL INFLUENZA SEQUENTIAL INFLUENZA 12-24-2018 - [facility] (23121) VACCINE (#1) VACCINE (#1) 12-24-2018 Office Visit 09/04/2018 Office Visit 09-04-2018 - [facility] Plastic & Plastic Surgery 09-04-2018 Reconstructive S Leon Winston MD [address] [address] [phone] Follow-Up 07/05/2018 Follow-Up 07-05-2018 - [facility] Plastic & Plastic Surgery 07-05-2018 Reconstructive S Leon Winston MD [address] [address] [phone] Follow-Up 06/07/2018 Follow-Up 06-07-2018 - [facility] Plastic & Plastic Surgery 06-07-2018 Reconstructive S Leon Winston MD [address] [address] [phone] Office Visit 06/05/2018 Office Visit 06-05-2018 - Chandra Rubio tpatient Trauma Trauma Surgery 06-05-2018 and Acute Care S urgery Office Visit no information 05-25-2018 - [facility] Ortho pedic 05-25-2018 Trauma & Reconst ructive Surgeons Surgery no information 05-12-2018 [facility] Per[facility] Comment: MANDIBLE HARDWARE REMOVAL Office Visit 02/23/2018 Office 02-23-2018 - [facility] Rocio stic & Visit Plastic Surgery 02-23-2018 Reconstruc tive Surgeons Mony Enriquez MD [address] [address] [phone] SEQUENTIAL INFLUENZA SEQUENTIAL INFLUENZA 12-24-2017 - [facility] (04654) VACCINE (#1) VACCINE (#1) 12-24-2017 SEQUENTIAL INFLUENZA SEQUENTIAL INFLUENZA 12-24-2017 - [facility] (73974) VACCINE (#1) VACCINE (#1) 12-24-2017 Office Visit 11/15/2017 Office 11-15-2017 - [facility] Rocio stic & Visit Plastic Surgery 11-15-2017 Reconstruc tive Surgeons Mony Enriquez MD [address] [address] [phone] Office Visit 11/01/2017 Office 11-01-2017 - [facility] Rocio stic & Visit Plastic Surgery 11-01-2017 Reconstruc tive Surgeons Mony Enriquez MD [address] [address] Office Visit 08/04/2017 Office 08-04-2017 - [facility] 08-04-2017 Trauma & Recons tructive Surgery Brittney, Chary Adames MD [address] [id number] Follow-Up 07/12/2017 Follow-Up 07-12-2017 [facility] Plastic & Plastic Surgery Zoe Reconstru ctive Surgeons Mony Conde MD [address] [address] [phone] Follow-Up 06/28/2017 Follow-Up 06-28-2017 [facility] Plastic & Plastic Surgery Reconstructive S urgeTahira Alexander PA-C [address] [address] [phone] Follow-Up 06/21/2017 Follow-Up 06-21-2017 - [facility] Plastic & Plastic Surgery 06-21-2017 Reconstructive S urgTahira Mo PA-C [address] [address] [phone] Follow-Up 06/07/2017 Follow-Up 06-07-2017 [facility] Plastic & Plastic Surgery Zoe Reconstrbaljit ctive Surgeons Mony Conde MD [address] [address] [phone] Surgery no information 05-25-2017 [facility] Follow-Up 05/12/2017 Follow-Up 05-12-2017 - [facility] Plastic & Plastic Surgery Zoe, 05-12-2017 Reconstru ctive Surgeons Mony Conde MD [address] [address] [phone] Office Visit 05/05/2017 Office 05-05-2017 - [facility] 05-05-2017 Trauma & Recons tructive Surgery Brittney, Surgeons Anuj Adames MD [address] [address] [phone] Follow-Up 04/21/2017 Follow-Up 04-21-2017 [facility] Plastic & Plastic Surgery Zoe Reconstru ctive Surgeons Mony Conde MD [address] [address] [phone] Follow-Up 04/07/2017 Follow-Up 04-07-2017 - [facility] Plastic & Plastic Surgery 04-07-2017 Reconstructive S Tahira Virk PA-C [address] [address] [phone] Office Visit no information 03-31-2017 - [facility] Ortho pedic 03-31-2017 Trauma & Reconst ructive Surgeons Follow-Up 03/22/2017 Follow-Up 03-22-2017 [facility] Plastic & Plastic Surgery Zoe Reconstru ctive Surgeons Mony Conde MD [address] [address] [phone] Surgery no information 03-11-2017 [facility] Per[facility] Follow-Up 02/17/2017 Follow-Up 02-17-2017 - [facility] Plastic & Plastic Surgery Zoe, 02-17-2017 Reconstru ctive Surgeons Mony Conde MD [address] [address] [phone] Office Visit 02/07/2017 Office 02-07-2017 - [facility] Ort hopedic Visit Orthopedic 02-07-2017 Trauma & Recons tructive Surgery Brittney, Surgeons Anuj Adames MD [address] [address] [phone] Follow-Up 02/03/2017 Follow-Up 02-03-2017 [facility] Plastic & Plastic Surgery Zoe Reconstru ctive Surgeons Mony Conde MD [address] [address] [phone] Follow-Up 01/13/2017 Follow-Up 01-13-2017 - [facility] Plastic & Plastic Surgery Zoe, 01-13-2017 Reconstru ctive Surgeons Mony Conde MD [address] [address] [phone] Follow-Up 01/04/2017 Follow-Up 01-04-2017 [facility] Plastic & Plastic Surgery Zoe Reconstrbaljit ctive Surgeons Mony Conde MD [address] [address] [phone] Office Visit no information 12-30-2016 - [facility] Ortho pedic 12-30-2016 Trauma & Reconst ructive Surgeons SEQUENTIAL INFLUENZA SEQUENTIAL INFLUENZA 12-24-2016 - [facility] (32648) VACCINE (#1) VACCINE (#1) 12-24-2016 SEQUENTIAL INFLUENZA SEQUENTIAL INFLUENZA 12-24-2016 - [facility] (40461) VACCINE (#1) VACCINE (#1) 12-24-2016 Surgery no information 12-22-2016 [facility] Periop Surgery 12/22/2016 Surgery 12-22-2016 [facility] Mony Enriquez Periop MD [address] [address] [phone] LEFT JAW FLAP DEBRIDEMENT W/ POSSIBLE CLOSURE Comment: LEFT JAW FLAP DEBRIDEMENT W/ POSSIBLE CLOSURE Follow-Up 12/21/2016 Follow-Up 12-21-2016 - [facility] Plastic & Plastic Surgery Zoe, 12-21-2016 Reconstru ctive Mony Conde MD [address] [address] [phone] Follow-Up 12/16/2016 Follow-Up 12-16-2016 [facility] Plastic & Plastic Surgery Samuel Enriquez MD [address] [address] [phone] Wellness Visit Wellness Visit 1981 - [facility] (4321 5) 1981 Bone Anaerobic Culture Bone Anaerobic Culture [facility] (10721) Routine 12/24/2016 10:24 AM EDT Bone Aerobic Culture [facility] (01340[facility] Routine 12/24/2016 10:[address] Maxillofacial With no information [facility] (60561) Contrast 3D CT Maxillofacial CT Maxillofacial 04-21-2018 [facility] (43 215) Without Contrast 3D Without Contrast 3D Routine 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, unspecified laterality, subsequent encounter 1 Occurrences starting 04/21/2017 until 04/21/[address] Maxillofacial 11-22-2018 [facility] (43 215) Without Contrast 3D Without Contrast 3D Routine Open fracture of body of mandible, unspecified laterality, sequela (HCC) 1 Occurrences starting 11/22/2017 until 11/22/[address] Maxillofacial 07-19-2018 [facility] (43 215) Without Contrast 3D Without Contrast 3D Routine 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, unspecified laterality, subsequent encounter 1 Occurrences starting 07/19/2017 until 07/19/2018 Bone Fungus Culture Bone Fungus Culture [facility] (55152) Routine 12/24/2016 10:24 AM EDT Bone AFB Culture Bone AFB Culture [facility] (43 215) Routine 12/24/2016 10:24 AM EDT Tissue Exam no information [facility] (4321 5) Vancomycin Level, Vancomycin Level, [facility] ( 02406) Random Random Routine Chronic osteomyelitis of facial bones (HCC) 01/04/2017 3:13 PM EDT Vancomycin Level, Vancomycin Level, 01-04-2018 [facility] ( 58621) Random Random Routine Chronic osteomyelitis of facial bones (HCC) 1 Occurrences starting 01/04/2017 until 01/04/2018 Wound AFB Culture no information [facility] (43 215) Wound Anaerobic no information [facility] (4321 5) Culture Wound culture Wound culture Routine 02-03-2018 [facility] (35031) Chronic osteomyelitis of facial bones (HCC) 1 Occurrences starting 02/03/2017 until 02/03/2018 Wound Fungus Culture no information [facility] (22824) XR Knee Left 2 Views XR Knee Left 2 Views 03-31-2017 [facility] (03736) (Standard) (Standard) Routine Type I or II open comminuted fracture of left patella with routine healing Once for 1 Occurrences starting 03/31/2017 until 03/31/2017 XR Knee Left 2 Views XR Knee Left 2 Views [facility] (22096) (Standard) (Standard) Routine Type I or II open comminuted fracture of left patella with routine healing 03/31/2017 1:09 PM EST Immunizations Vaccine Notes Status Date Location TDAP tetanus toxoid, reduced (completed) 08-27-2016 - [facility] (44871) diphtheria toxoid, and 08-27-2016 acellular pertussis vaccine, adsorbed Payers Payer Name Policy Number Location [facility] MANAGED MED[facility] xxxxxxxxxxx [facility] ( 38875) [employer] MANAGED MEDICAID [id number] [facility] ([id number]) [place] [employer], MEDICAID, [id number] [facility] ([id number]) [employer] MEDICA[employer], MEDICAID, [employer] [employer] MED[employer], MEDICAID, [place] [employer] MEDICAID [place] [employer] xxxxxxxxxxxx [facility] (4321 5) [id number] [facility] (46534) [id number] [facility] (42931) [id number] [facility] (24977) [id number] [facility] (34360) [id number] [facility] (50430) [id number] [facility] (10240) [id number] [facility] (65694) [id number] [facility] (42445) [id number] [facility] (00792) [id number] [facility] ([id number]) [id number] [facility] ([id number]) [id number] [facility] ([id number]) [id number] [facility] (70556) [id number] [facility] (27322) [id number] [facility] ([id number]) [phone] [facility] ([id number]) The following information is from the original human readable contentNo Payer Records Found Social History Type Social History Date Location Description Tobacco smoking status Former smoker 12-21-2016 - [facility] (16324) HIIS 03-14-2017 History of tobacco use Current smoker 08-25-2016 [facility] (84454) Sex Assigned At Not on file [facility] (80802) Tobacco Comment 1 pack per week for 20 10-01-2016 - [facility] (92705) years 10-01-2016 Tobacco smoking status Current every day smoker 06-05-2018 - [facility] (00811) NHIS 09-06-2018 Alcohol intake Current non-drinker of 09-06-2018 [facility] h (73231) alcohol (finding) The following information is from the original human readable contentNo Social History Records FoundNo Social History Records FoundNo Social History Records FoundNo Social History Records FoundNo Social History Records FoundNo Social History Records FoundNo Social History Records Found Medical Equipment Equipment Code (if Equipment Original Equipment Procedure Code D ates provided) Text (if provided) Identifier (if (if provided) provided) Cement Bone 12-24-2016 Radiopaque Simplex P Single Dose - [id number] Screw 2.4 X 22mm Moraima 017 Ang Lock Strdrv - [id number] Tube [id number] Trach 08-26-2016 Cuffed - [id number] Tube 22fr Feeding 08-26-2016 Gastrostomy Junior - [id number] Screw 2.4 X 32mm Va 08-28-19 17 Lock Self-Tap Strdrv Rec - [id number] Screw 2.4 X 44mm Va 08-28-19 17 Lock Self-Tap Strdrv Rec - [id number] Screw 2.4 X 36mm 08-27-2016 Cortex Self-Tap T8 Strdrv Rec - [id number] Screw 2.4 X 38mm 08-27-2016 Cortex Self-Tap T8 Strdrv Rec - [id number] Wire K .045 X 5.5in 08-28-19 17 W/Wire Guide - [id number] Plate 2.4mm 2.7mm 08-27-2016 Va-Lock Mesh 5 X 12hls - [id number] Wire 15 X 150mm 08-27-2016 Compression Thrd - [id number] 1.6mm Compression 08-27-2016 Wires 20mm Thread Length, 1500mm Total Length Screw 2.4 X 18mm Moraima 017 Ang Lock Strdrv - [id number] Screw 2.4 X 20mm Moraima 017 Ang Lock Strdrv - [id number] Screw 2.4 X 22mm Moraima 017 Ang Lock Strdrv - [id number] Hemostat 8 X 12.5cm 11-04-19 17 X 10mm Surgifoam Gelatin Sponge - [id number] Screw 2.5 X 4mm Ti 7 Schanz 14mm Thrd Body - [id number] Hemostat 2 X 14in 12-03-2016 Surgicel - [id number] Mandible Bone Infuse Bone 11-03-2016 Graft Sm - [id number] Bone Infuse Bone 05-25-2017 Graft Xsm - [id number] Cement Bone 12-24-2016 Radiopaque Simplex P Single Dose - [id number] Tube Sz8 Trach 08-26-2016 Cuffed - [id number] Tube 22fr Feeding 08-26-2016 Gastrostomy Junior - [id number] Screw 2.4 X 32mm Va 08-28-19 17 Lock Self-Tap Strdrv Rec - [id number] Screw 2.4 X 44mm Va 08-28-19 17 Lock Self-Tap Strdrv Rec - [id number] Screw 2.4 X 36mm 08-27-2016 Cortex Self-Tap T8 Strdrv Rec - Asu148646 Screw 2.4 X 38mm 08-27-2016 Cortex Self-Tap T8 Strdrv Rec - [id number] Wire K .045 X 5.5in 08-28-19 17 W/Wire Guide - [id number] Plate 2.4mm 2.7mm 08-27-2016 Va-Lock Mesh 5 X 12hls - [id number] Wire 15 X 150mm 08-27-2016 Compression Thrd - [id number] 1.6mm Compression 08-27-2016 Wires 20mm Thread Length, 1500mm Total Length Screw 2.4 X 18mm Mor[place] 017 Ang Lock Strdrv - [id number] Screw 2.4 X 20mm [place] 017 Ang Lock Strdrv - [id number] Screw 2.4 X 22mm [place] 017 Ang Lock Strdrv - [id number] Hemostat 8 X 12.5cm 11-04-19 17 X 10mm Surgifoam Gelatin Sponge - [id number] Screw 2.5 X 4mm Ti 7 Schanz 14mm Thrd Body - [id number] Hemostat 2 X 14in 12-03-2016 Surgicel - [id number] Hemostat 8 X 6.25cm 05-25-19 18 X 10mm Surgifoam Gelatin Sponge - [id number] Screw 2 X 10mm Cross 018 Pin Locking - [id number] Screw 2 X 14mm Cross 018 Pin Locking - [id number] Plate 11hl Str Recon 018 - [id number] Bone Infuse Bone 11-03-2016 Graft Sm - [id number] Bone Infuse Bone 05-25-2017 Graft Xsm - [id number] Cement Bone 12-24-2016 Radiopaque Simplex P Single Dose - [id number] Tube Sz8 Trach 08-26-2016 Cuffed - [id number] Tube 22fr Feeding 08-26-2016 Gastrostomy Junior - Dke244085 Screw 2.4 X 32mm Va 08-28-19 17 Lock Self-Tap Strdrv Rec - [id number] Screw 2.4 X 44mm Va 08-28-19 17 Lock Self-Tap Strdrv Rec - [id number] Screw 2.4 X 36mm 08-27-2016 Cortex Self-Tap T8 Strdrv Rec - [id number] Screw 2.4 X 38mm 08-27-2016 Cortex Self-Tap T8 Strdrv Rec - [id number] Wire K .045 X 5.5in 08-28-19 17 W/Wire Guide - [id number] Plate 2.4mm 2.7mm 08-27-2016 Va-Lock Mesh 5 X 12hls - [id number] Wire 15 X 150mm 08-27-2016 Compression Thrd - [id number] 1.6mm Compression 08-27-2016 Wires 20mm Thread Length, 1500mm Total Length Screw 2.4 X 18mm [place] 017 Ang Lock Strdrv - [id number] Screw 2.4 X 20mm [place] 017 Ang Lock Strdrv - [id number] Screw 2.4 X 22mm [place] 017 Ang Lock Strdrv - [id number] Hemostat 8 X 12.5cm 11-04-19 17 X 10mm Surgifoam Gelatin Sponge - Hfe1484883 Screw 2.5 X 4mm Ti 7 Schanz 14mm Thrd Body - [id number] Hemostat 2 X 14in 12-03-2016 Surgicel - [id number] Hemostat 8 X 6.25cm 05-25-19 18 X 10mm Surgifoam Gelatin Sponge - [id number] Screw 2 X 10mm Cross 018 Pin Locking - [id number] Screw 2 X 14mm Cross 018 Pin Locking - [id number] Plate 11hl Str Recon 018 - [id number] Bone Infuse Bone 11-03-2016 Graft Sm - [id number] Bone Infuse Bone 05-25-2017 Graft Xsm - [id number] Cement Bone 12-24-2016 Radiopaque Simplex P Single Dose - [id number] Tube Sz8 Trach 08-26-2016 Cuffed - Dvj964626 Tube 22fr Feeding 08-26-2016 Gastrostomy Junior - Itu837259 Screw 2.4 X 32mm Va 08-28-19 17 Lock Self-Tap Strdrv Rec - Pjv492875 Screw 2.4 X 44mm Va 08-28-19 17 Lock Self-Tap Strdrv Rec - [id number] Screw 2.4 X 36mm 08-27-2016 Cortex Self-Tap T8 Strdrv Rec - [id number] Screw 2.4 X 38mm 08-27-2016 Cortex Self-Tap T8 Strdrv Rec - [id number] Wire K .045 X 5.5in 08-28-19 17 W/Wire Guide - [id number] Plate 2.4mm 2.7mm 08-27-2016 Va-Lock Mesh 5 X 12hls - [id number] Wire 15 X 150mm 08-27-2016 Compression Thrd - [id number] 1.6mm Compression 08-27-2016 Wires 20mm Thread Length, 1500mm Total Length Screw 2.4 X 18mm [place] 017 Ang Lock Strdrv - Zcw555661 Screw 2.4 X 20mm [place] 017 Ang Lock Strdrv - [id number] Screw 2.4 X 22mm [place] 017 Ang Lock Strdrv - [id number] Hemostat 8 X 12.5cm 11-04-19 17 X 10mm Surgifoam Gelatin Sponge - [id number] Screw 2.5 X 4mm Ti 7 Schanz 14mm Thrd Body - [id number] Hemostat 2 X 14in 12-03-2016 Surgicel - [id number] Hemostat 8 X 6.25cm 05-25-19 18 X 10mm Surgifoam Gelatin Sponge - [id number] Screw 2 X 10mm Cross 018 Pin Locking - [id number] Screw 2 X 14mm Cross 018 Pin Locking - [id number] Plate 11hl Str Recon 018 - [id number] Bone Infuse Bone 11-03-2016 Graft Sm - [id number] Bone Infuse Bone 05-25-2017 Graft Xsm - [id number] Cement Bone 12-24-2016 Radiopaque Simplex P Single Dose - [id number] Tube Sz8 Trach 08-26-2016 Cuffed - Gll850776 Tube 22fr Feeding 08-26-2016 Gastrostomy Junior - Yfv036951 Screw 2.4 X 32mm Va 08-28-19 17 Lock Self-Tap Strdrv Rec - [id number] Screw 2.4 X 44mm Va 08-28-19 17 Lock Self-Tap Strdrv Rec - Suy303589 Screw 2.4 X 36mm 08-27-2016 Cortex Self-Tap T8 Strdrv Rec - [id number] Screw 2.4 X 38mm 08-27-2016 Cortex Self-Tap T8 Strdrv Rec - Gvs122963 Wire K .045 X 5.5in 08-28-19 17 W/Wire Guide - [id number] Plate 2.4mm 2.7mm 08-27-2016 Va-Lock Mesh 5 X 12hls - Zsn555209 Wire 15 X 150mm 08-27-2016 Compression Thrd - [id number] 1.6mm Compression 08-27-2016 Wires 20mm Thread Length, 1500mm Total Length Screw 2.4 X 18mm [place] 017 Ang Lock Strdrv - [id number] Screw 2.4 X 20mm [place] 017 Ang Lock Strdrv - Hfw276515 Screw 2.4 X 22mm [place] 017 Ang Lock Strdrv - [id number] Hemostat 8 X 12.5cm 11-04-19 17 X 10mm Surgifoam Gelatin Sponge - Ifv7966963 Screw 2.5 X 4mm Ti 7 Schanz 14mm Thrd Body - Iep7918619 Hemostat 2 X 14in 12-03-2016 Surgicel - [id number] Hemostat 8 X 6.25cm 05-25-19 18 X 10mm Surgifoam Gelatin Sponge - [id number] Screw 2 X 10mm Cross 018 Pin Locking - [id number] Screw 2 X 14mm Cross 018 Pin Locking - [id number] Plate 11hl Str Recon 018 - [id number] Bone Infuse Bone 11-03-2016 Graft Sm - Edw6176718 Bone Infuse Bone 05-25-2017 Graft Xsm - [id number] Cement Bone 12-24-2016 Radiopaque Simplex P Single Dose - [id number] Tube Sz8 Trach 08-26-2016 Cuffed - [id number] Tube 22fr Feeding 08-26-2016 Gastrostomy Junior - Vex068074 Screw 2.4 X 32mm Va 08-28-19 17 Lock Self-Tap Strdrv Rec - [id number] Screw 2.4 X 44mm Va 08-28-19 17 Lock Self-Tap Strdrv Rec - [id number] Screw 2.4 X 36mm 08-27-2016 Cortex Self-Tap T8 Strdrv Rec - [id number] Screw 2.4 X 38mm 08-27-2016 Cortex Self-Tap T8 Strdrv Rec - Zrd288555 Wire K .045 X 5.5in 08-28-19 17 W/Wire Guide - [id number] Plate 2.4mm 2.7mm 08-27-2016 Va-Lock Mesh 5 X 12hls - [id number] Wire 15 X 150mm 08-27-2016 Compression Thrd - [id number] 1.6mm Compression 08-27-2016 Wires 20mm Thread Length, 1500mm Total Length Screw 2.4 X 18mm [place] 017 Ang Lock Strdrv - [id number] Screw 2.4 X 20mm [place] 017 Ang Lock Strdrv - Izh270404 Screw 2.4 X 22mm [place] 017 Ang Lock Strdrv - [id number] Hemostat 8 X 12.5cm 11-04-19 17 X 10mm Surgifoam Gelatin Sponge - Gaj0634698 Screw 2.5 X 4mm Ti 7 Schanz 14mm Thrd Body - [id number] Hemostat 2 X 14in 12-03-2016 Surgicel - [id number] Hemostat 8 X 6.25cm 05-25-19 18 X 10mm Surgifoam Gelatin Sponge - Ipi2055920 Screw 2 X 10mm Cross 018 Pin Locking - [id number] Screw 2 X 14mm Cross 018 Pin Locking - [id number] Plate 11hl Str Recon 018 - [id number] Bone Infuse Bone 11-03-2016 Graft Sm - [id number] Bone Infuse Bone 05-25-2017 Graft Xsm - [id number] Cement Bone 12-24-2016 Radiopaque Simplex P Single Dose - [id number] Tube Sz8 Trach 08-26-2016 Cuffed - Iry179019 Tube 22fr Feeding 08-26-2016 Gastrostomy Junior - Dmk985058 Screw 2.4 X 32mm Va 08-28-19 17 Lock Self-Tap Strdrv Rec - [id number] Screw 2.4 X 44mm Va 08-28-19 17 Lock Self-Tap Strdrv Rec - Drp695538 Screw 2.4 X 36mm 08-27-2016 Cortex Self-Tap T8 Strdrv Rec - [id number] Screw 2.4 X 38mm 08-27-2016 Cortex Self-Tap T8 Strdrv Rec - Uao178824 Wire K .045 X 5.5in 08-28-19 17 W/Wire Guide - [id number] Plate 2.4mm 2.7mm 08-27-2016 Va-Lock Mesh 5 X 12hls - Qft142855 Wire 15 X 150mm 08-27-2016 Compression Thrd - [id number] 1.6mm Compression 08-27-2016 Wires 20mm Thread Length, 1500mm Total Length Screw 2.4 X 18mm [place] 017 Ang Lock Strdrv - [id number] Screw 2.4 X 20mm [place] 017 Ang Lock Strdrv - Mei678240 Screw 2.4 X 22mm [place] 017 Ang Lock Strdrv - [id number] Hemostat 8 X 12.5cm 11-04-19 17 X 10mm Surgifoam Gelatin Sponge - Guj0693709 Screw 2.5 X 4mm Ti 7 Schanz 14mm Thrd Body - [id number] Hemostat 2 X 14in 12-03-2016 Surgicel - [id number] Hemostat 8 X 6.25cm 05-25-19 18 X 10mm Surgifoam Gelatin Sponge - [id number] Screw 2 X 10mm Cross 018 Pin Locking - [id number] Screw 2 X 14mm Cross 018 Pin Locking - [id number] Plate 11hl Str Recon 018 - [id number] Bone Infuse Bone 11-03-2016 Graft Sm - [id number] Bone Infuse Bone 05-25-2017 Graft Xsm - Bng0982453 Cement Bone 12-24-2016 Radiopaque Simplex P Single Dose - [id number] Tube Sz8 Trach 08-26-2016 Cuffed - Pzz682453 Tube 22fr Feeding 08-26-2016 Gastrostomy Junior - Afj089294 Screw 2.4 X 32mm Va 08-28-19 17 Lock Self-Tap Strdrv Rec - [id number] Screw 2.4 X 44mm Va 08-28-19 17 Lock Self-Tap Strdrv Rec - [id number] Screw 2.4 X 36mm 08-27-2016 Cortex Self-Tap T8 Strdrv Rec - Ovu112299 Screw 2.4 X 38mm 08-27-2016 Cortex Self-Tap T8 Strdrv Rec - [id number] Wire K .045 X 5.5in 08-28-19 17 W/Wire Guide - [id number] Plate 2.4mm 2.7mm 08-27-2016 Va-Lock Mesh 5 X 12hls - Wyb778100 Wire 15 X 150mm 08-27-2016 Compression Thrd - [id number] 1.6mm Compression 08-27-2016 Wires 20mm Thread Length, 1500mm Total Length Screw 2.4 X 18mm [place] 017 Ang Lock Strdrv - Gtw011131 Screw 2.4 X 20mm [place] 017 Ang Lock Strdrv - [id number] Screw 2.4 X 22mm [place] 017 Ang Lock Strdrv - [id number] Hemostat 8 X 12.5cm 11-04-19 17 X 10mm Surgifoam Gelatin Sponge - Ars5774894 Screw 2.5 X 4mm Ti 7 Schanz 14mm Thrd Body - Gdn4128960 Hemostat 2 X 14in 12-03-2016 Surgicel - Ojf5557143 Hemostat 8 X 6.25cm 05-25-19 18 X 10mm Surgifoam Gelatin Sponge - Inm0790301 Screw 2 X 10mm Cross 018 Pin Locking - [id number] Screw 2 X 14mm Cross 018 Pin Locking - [id number] Plate 11hl Str Recon 018 - [id number] Bone Infuse Bone 11-03-2016 Graft Sm - [id number] Bone Infuse Bone 05-25-2017 Graft Xsm - [id number] Cement Bone 12-24-2016 Radiopaque Simplex P Single Dose - [id number] Tube Sz8 Trach 08-26-2016 Cuffed - [id number] Tube 22fr Feeding 08-26-2016 Gastrostomy Junior - Mnh072507 Screw 2.4 X 32mm Va 08-28-19 17 Lock Self-Tap Strdrv Rec - [id number] Screw 2.4 X 44mm Va 08-28-19 17 Lock Self-Tap Strdrv Rec - Aos385932 Screw 2.4 X 36mm 08-27-2016 Cortex Self-Tap T8 Strdrv Rec - [id number] Screw 2.4 X 38mm 08-27-2016 Cortex Self-Tap T8 Strdrv Rec - Bzb328108 Wire K .045 X 5.5in 08-28-19 17 W/Wire Guide - [id number] Plate 2.4mm 2.7mm 08-27-2016 Va-Lock Mesh 5 X 12hls - [id number] Wire 15 X 150mm 08-27-2016 Compression Thrd - [id number] 1.6mm Compression 08-27-2016 Wires 20mm Thread Length, 1500mm Total Length Screw 2.4 X 18mm [place] 017 Ang Lock Strdrv - Bzb441038 Screw 2.4 X 20mm [place] 017 Ang Lock Strdrv - [id number] Screw 2.4 X 22mm [place] 017 Ang Lock Strdrv - [id number] Hemostat 8 X 12.5cm 11-04-19 17 X 10mm Surgifoam Gelatin Sponge - [id number] Screw 2.5 X 4mm Ti 7 Schanz 14mm Thrd Body - [id number] Hemostat 2 X 14in 12-03-2016 Surgicel - [id number] Hemostat 8 X 6.25cm 05-25-19 18 X 10mm Surgifoam Gelatin Sponge - Lpj3667795 Screw 2 X 10mm Cross 018 Pin Locking - [id number] Screw 2 X 14mm Cross 018 Pin Locking - [id number] Plate 11hl Str Recon 018 - [id number] Bone Infuse Bone 11-03-2016 Graft Sm - [id number] Cement Bone 12-24-2016 Radiopaque Simplex P Single Dose - [id number] Tube Sz8 Trach 08-26-2016 Cuffed - [id number] Tube 22fr Feeding 08-26-2016 Gastrostomy Junior - Eov560873 Screw 2.4 X 32mm Va 08-28-19 17 Lock Self-Tap Strdrv Rec - Pke204071 Screw 2.4 X 44mm Va 08-28-19 17 Lock Self-Tap Strdrv Rec - Yia110062 Screw 2.4 X 36mm 08-27-2016 Cortex Self-Tap T8 Strdrv Rec - Gqf667889 Screw 2.4 X 38mm 08-27-2016 Cortex Self-Tap T8 Strdrv Rec - [id number] Wire K .045 X 5.5in 08-28-19 17 W/Wire Guide - [id number] Plate 2.4mm 2.7mm 08-27-2016 Va-Lock Mesh 5 X 12hls - Ojj091905 Wire 15 X 150mm 08-27-2016 Compression Thrd - [id number] 1.6mm Compression 08-27-2016 Wires 20mm Thread Length, 1500mm Total Length Screw 2.4 X 18mm [place] 017 Ang Lock Strdrv - Whh717983 Screw 2.4 X 20mm [place] 017 Ang Lock Strdrv - Hjg503884 Screw 2.4 X 22mm [place] 017 Ang Lock Strdrv - [id number] Hemostat 8 X 12.5cm 11-04-19 17 X 10mm Surgifoam Gelatin Sponge - Djc3224308 Screw 2.5 X 4mm Ti 7 Schanz 14mm Thrd Body - Agk3944257 Hemostat 2 X 14in 12-03-2016 Surgicel - [id number] Bone Infuse Bone 11-03-2016 Graft Sm - [id number] Tube Sz8 Trach 08-26-2016 Cuffed - Myn280090 Tube 22fr Feeding 08-26-2016 Gastrostomy Junior - Xga392877 Screw 2.4 X 32mm Va 08-28-19 17 Lock Self-Tap Strdrv Rec - Iwz169032 Screw 2.4 X 44mm Va 08-28-19 17 Lock Self-Tap Strdrv Rec - [id number] Screw 2.4 X 36mm 08-27-2016 Cortex Self-Tap T8 Strdrv Rec - [id number] Screw 2.4 X 38mm 08-27-2016 Cortex Self-Tap T8 Strdrv Rec - [id number] Wire K .045 X 5.5in 08-28-19 17 W/Wire Guide - [id number] Plate 2.4mm 2.7mm 08-27-2016 Va-Lock Mesh 5 X 12hls - [id number] Wire 15 X 150mm 08-27-2016 Compression Thrd - [id number] 1.6mm Compression 08-27-2016 Wires 20mm Thread Length, 1500mm Total Length Screw 2.4 X 18mm [place] 017 Ang Lock Strdrv - [id number] Screw 2.4 X 20mm [place] 017 Ang Lock Strdrv - [id number] Screw 2.4 X 22mm [place] 017 Ang Lock Strdrv - [id number] Hemostat 8 X 12.5cm 11-04-19 17 X 10mm Surgifoam Gelatin Sponge - [id number] Screw 2.5 X 4mm Ti 7 Schanz 14mm Thrd Body - Icf6078439 Hemostat 2 X 14in 12-03-2016 Surgicel - [id number] Bone Infuse Bone 11-03-2016 Graft Sm - Ypr7587061 Cement Bone 12-24-2016 Radiopaque Simplex P Single Dose - [id number] Tube Sz8 Trach 08-26-2016 Cuffed - [id number] Tube 22fr Feeding 08-26-2016 Gastrostomy Junior - Qtg190302 Screw 2.4 X 32mm Va 08-28-19 17 Lock Self-Tap Strdrv Rec - [id number] Screw 2.4 X 44mm Va 08-28-19 17 Lock Self-Tap Strdrv Rec - Yxa376254 Screw 2.4 X 36mm 08-27-2016 Cortex Self-Tap T8 Strdrv Rec - Uic506857 Screw 2.4 X 38mm 08-27-2016 Cortex Self-Tap T8 Strdrv Rec - Htm280773 Wire K .045 X 5.5in 08-28-19 17 W/Wire Guide - [id number] Plate 2.4mm 2.7mm 08-27-2016 Va-Lock Mesh 5 X 12hls - Ncm818885 Wire 15 X 150mm 08-27-2016 Compression Thrd - [id number] 1.6mm Compression 08-27-2016 Wires 20mm Thread Length, 1500mm Total Length Screw 2.4 X 18mm [place] 017 Ang Lock Strdrv - [id number] Screw 2.4 X 20mm [place] 017 Ang Lock Strdrv - Uvi014695 Screw 2.4 X 22mm [place] 017 Ang Lock Strdrv - [id number] Hemostat 8 X 12.5cm 11-04-19 17 X 10mm Surgifoam Gelatin Sponge - [id number] Screw 2.5 X 4mm Ti 7 Schanz 14mm Thrd Body - Swp1283573 Hemostat 2 X 14in 12-03-2016 Surgicel - Mlb8898529 Bone Infuse Bone 11-03-2016 Graft Sm - [id number] Cement Bone 12-24-2016 Radiopaque Simplex P Single Dose - [id number] Tube Sz8 Trach 08-26-2016 Cuffed - [id number] Tube 22fr Feeding 08-26-2016 Gastrostomy Junior - Rym840248 Screw 2.4 X 32mm Va 08-28-19 17 Lock Self-Tap Strdrv Rec - Evi680572 Screw 2.4 X 44mm Va 08-28-19 17 Lock Self-Tap Strdrv Rec - Awc573589 Screw 2.4 X 36mm 08-27-2016 Cortex Self-Tap T8 Strdrv Rec - [id number] Screw 2.4 X 38mm 08-27-2016 Cortex Self-Tap T8 Strdrv Rec - Whu024470 Wire K .045 X 5.5in 08-28-19 17 W/Wire Guide - [id number] Plate 2.4mm 2.7mm 08-27-2016 Va-Lock Mesh 5 X 12hls - [id number] Wire 15 X 150mm 08-27-2016 Compression Thrd - [id number] 1.6mm Compression 08-27-2016 Wires 20mm Thread Length, 1500mm Total Length Screw 2.4 X 18mm [place] 017 Ang Lock Strdrv - Wth142485 Screw 2.4 X 20mm [place] 017 Ang Lock Strdrv - Tui361440 Screw 2.4 X 22mm [place] 017 Ang Lock Strdrv - [id number] Hemostat 8 X 12.5cm 11-04-19 17 X 10mm Surgifoam Gelatin Sponge - Yth2704339 Screw 2.5 X 4mm Ti 7 Schanz 14mm Thrd Body - Jsc8137949 Hemostat 2 X 14in 12-03-2016 Surgicel - [id number] Bone Infuse Bone 11-03-2016 Graft Sm - [id number] Bone Infuse Bone 05-25-2017 Graft Xsm - Yke2698828 Cement Bone 12-24-2016 Radiopaque Simplex P Single Dose - Gzj2765837 Tube Sz8 Trach 08-26-2016 Cuffed - Lyg083722 Tube 22fr Feeding 08-26-2016 Gastrostomy Junior - Ljg881707 Screw 2.4 X 32mm Va 08-28-19 17 Lock Self-Tap Strdrv Rec - [id number] Screw 2.4 X 44mm Va 08-28-19 17 Lock Self-Tap Strdrv Rec - [id number] Screw 2.4 X 36mm 08-27-2016 Cortex Self-Tap T8 Strdrv Rec - Tbj006883 Screw 2.4 X 38mm 08-27-2016 Cortex Self-Tap T8 Strdrv Rec - Ogl312996 Wire K .045 X 5.5in 08-28-19 17 W/Wire Guide - [id number] Plate 2.4mm 2.7mm 08-27-2016 Va-Lock Mesh 5 X 12hls - Ffd861676 Wire 15 X 150mm 08-27-2016 Compression Thrd - [id number] 1.6mm Compression 08-27-2016 Wires 20mm Thread Length, 1500mm Total Length Screw 2.4 X 18mm [place] 017 Ang Lock Strdrv - Tqc054077 Screw 2.4 X 20mm [place] 017 Ang Lock Strdrv - Gfn567975 Screw 2.4 X 22mm [place] 017 Ang Lock Strdrv - Iyb251372 Hemostat 8 X 12.5cm 11-04-19 17 X 10mm Surgifoam Gelatin Sponge - [id number] Screw 2.5 X 4mm Ti 7 Schanz 14mm Thrd Body - Yot8803984 Hemostat 2 X 14in 12-03-2016 Surgicel - [id number] Hemostat 8 X 6.25cm 05-25-19 18 X 10mm Surgifoam Gelatin Sponge - Pgf8096654 Screw 2 X 10mm Cross 018 Pin Locking - [id number] Screw 2 X 14mm Cross 018 Pin Locking - [id number] Plate 11hl Str Recon 018 - Usn0105876 Screw 2 X 12mm Mmf 8 Self-Drill - [id number] Bone Infuse Bone 11-03-2016 Graft Sm - [id number] Tube Sz8 Trach 08-26-2016 Cuffed - Uag827897 Tube 22fr Feeding 08-26-2016 Gastrostomy Junior - Iwe004825 Screw 2.4 X 32mm Va 08-28-19 17 Lock Self-Tap Strdrv Rec - Iav506705 Screw 2.4 X 44mm Va 08-28-19 17 Lock Self-Tap Strdrv Rec - [id number] Screw 2.4 X 36mm 08-27-2016 Cortex Self-Tap T8 Strdrv Rec - Yhn814124 Screw 2.4 X 38mm 08-27-2016 Cortex Self-Tap T8 Strdrv Rec - Jqm458053 Wire K .045 X 5.5in 08-28-19 17 W/Wire Guide - [id number] Plate 2.4mm 2.7mm 08-27-2016 Va-Lock Mesh 5 X 12hls - Jhl029510 Wire 15 X 150mm 08-27-2016 Compression Thrd - [id number] 1.6mm Compression 08-27-2016 Wires 20mm Thread Length, 1500mm Total Length Screw 2.4 X 18mm [place] 017 Ang Lock Strdrv - [id number] Screw 2.4 X 20mm [place] 017 Ang Lock Strdrv - Zcx754608 Screw 2.4 X 22mm [place] 017 Ang Lock Strdrv - [id number] Hemostat 8 X 12.5cm 11-04-19 17 X 10mm Surgifoam Gelatin Sponge - Fyo3055363 Screw 2.5 X 4mm Ti 7 Schanz 14mm Thrd Body - Fwu1062722 Hemostat 2 X 14in 12-03-2016 Surgicel - [id number] Bone Infuse Bone 11-03-2016 Graft Sm - Ypj9746297 Tube Sz8 Trach 08-26-2016 Cuffed - [id number] Tube 22fr Feeding 08-26-2016 Gastrostomy Junior - Vtc135253 Screw 2.4 X 32mm Va 08-28-19 17 Lock Self-Tap Strdrv Rec - [id number] Screw 2.4 X 44mm Va 08-28-19 17 Lock Self-Tap Strdrv Rec - [id number] Screw 2.4 X 36mm 08-27-2016 Cortex Self-Tap T8 Strdrv Rec - Upf418663 Screw 2.4 X 38mm 08-27-2016 Cortex Self-Tap T8 Strdrv Rec - [id number] Wire K .045 X 5.5in 08-28-19 17 W/Wire Guide - [id number] Plate 2.4mm 2.7mm 08-27-2016 Va-Lock Mesh 5 X 12hls - [id number] Wire 15 X 150mm 08-27-2016 Compression Thrd - [id number] 1.6mm Compression 08-27-2016 Wires 20mm Thread Length, 1500mm Total Length Screw 2.4 X 18mm [place] 017 Ang Lock Strdrv - Gzj949477 Screw 2.4 X 20mm [place] 017 Ang Lock Strdrv - [id number] Screw 2.4 X 22mm [place] 017 Ang Lock Strdrv - [id number] Hemostat 8 X 12.5cm 11-04-19 17 X 10mm Surgifoam Gelatin Sponge - [id number] Screw 2.5 X 4mm Ti 7 Schanz 14mm Thrd Body - [id number] Bone Infuse Bone 11-03-2016 Graft Sm - Ieg3757027 Tube Sz8 Trach 08-26-2016 Cuffed - Cie241664 Tube 22fr Feeding 08-26-2016 Gastrostomy Junior - Ylg074870 Screw 2.4 X 32mm Va 08-28-19 17 Lock Self-Tap Strdrv Rec - Erm554588 Screw 2.4 X 44mm Va 08-28-19 17 Lock Self-Tap Strdrv Rec - [id number] Screw 2.4 X 36mm 08-27-2016 Cortex Self-Tap T8 Strdrv Rec - Oiy467345 Screw 2.4 X 38mm 08-27-2016 Cortex Self-Tap T8 Strdrv Rec - [id number] Wire K .045 X 5.5in 08-28-19 17 W/Wire Guide - [id number] Plate 2.4mm 2.7mm 08-27-2016 Va-Lock Mesh 5 X 12hls - [id number] Wire 15 X 150mm 08-27-2016 Compression Thrd - [id number] 1.6mm Compression 08-27-2016 Wires 20mm Thread Length, 1500mm Total Length Screw 2.4 X 18mm [place] 017 Ang Lock Strdrv - Kxd873990 Screw 2.4 X 20mm [place] 017 Ang Lock Strdrv - [id number] Screw 2.4 X 22mm [place] 017 Ang Lock Strdrv - [id number] Hemostat 8 X 12.5cm 11-04-19 17 X 10mm Surgifoam Gelatin Sponge - Pzp5342767 Screw 2.5 X 4mm Ti 7 Schanz 14mm Thrd Body - Inm1507339 Hemostat 2 X 14in 12-03-2016 Surgicel - [id number] Bone Infuse Bone 11-03-2016 Graft Sm - [id number] Tube Sz8 Trach 08-26-2016 Cuffed - [id number] Tube 22fr Feeding 08-26-2016 Gastrostomy Junior - Pxq590637 Screw 2.4 X 32mm Va 08-28-19 17 Lock Self-Tap Strdrv Rec - [id number] Screw 2.4 X 44mm Va 08-28-19 17 Lock Self-Tap Strdrv Rec - Grn326555 Screw 2.4 X 36mm 08-27-2016 Cortex Self-Tap T8 Strdrv Rec - Cgi364415 Screw 2.4 X 38mm 08-27-2016 Cortex Self-Tap T8 Strdrv Rec - [id number] Wire K .045 X 5.5in 08-28-19 17 W/Wire Guide - [id number] Plate 2.4mm 2.7mm 08-27-2016 Va-Lock Mesh 5 X 12hls - [id number] Wire 15 X 150mm 08-27-2016 Compression Thrd - [id number] 1.6mm Compression 08-27-2016 Wires 20mm Thread Length, 1500mm Total Length Screw 2.4 X 18mm [place] 017 Ang Lock Strdrv - [id number] Screw 2.4 X 20mm [place] 017 Ang Lock Strdrv - [id number] Screw 2.4 X 22mm [place] 017 Ang Lock Strdrv - [id number] Hemostat 8 X 12.5cm 11-04-19 17 X 10mm Surgifoam Gelatin Sponge - [id number] Screw 2.5 X 4mm Ti 7 Schanz 14mm Thrd Body - [id number] Hemostat 2 X 14in 12-03-2016 Surgicel - [id number] Bone Infuse Bone 11-03-2016 Graft Sm - [id number] Tube Sz8 Trach 08-26-2016 Cuffed - [id number] Tube 22fr Feeding 08-26-2016 Gastrostomy Junior - [id number] Screw 2.4 X 32mm Va 08-28-19 17 Lock Self-Tap Strdrv Rec - [id number] Screw 2.4 X 44mm Va 08-28-19 17 Lock Self-Tap Strdrv Rec - [id number] Screw 2.4 X 36mm 08-27-2016 Cortex Self-Tap T8 Strdrv Rec - [id number] Screw 2.4 X 38mm 08-27-2016 Cortex Self-Tap T8 Strdrv Rec - [id number] Wire K .045 X 5.5in 08-28-19 17 W/Wire Guide - [id number] Plate 2.4mm 2.7mm 08-27-2016 Va-Lock Mesh 5 X 12hls - [id number] Wire 15 X 150mm 08-27-2016 Compression Thrd - [id number] 1.6mm Compression 08-27-2016 Wires 20mm Thread Length, 1500mm Total Length Screw 2.4 X 18mm [place] 017 Ang Lock Strdrv - [id number] Screw 2.4 X 20mm [place] 017 Ang Lock Strdrv - [id number] Screw 2.4 X 22mm [place] 017 Ang Lock Strdrv - [id number] Hemostat 8 X 12.5cm 11-04-19 17 X 10mm Surgifoam Gelatin Sponge - [id number] Screw 2.5 X 4mm Ti 7 Schanz 14mm Thrd Body - [id number] Wire [employer] Dental - 7 [id number] Plate 11hl Str Recon 017 - [id number] Screw 2 X 12mm Mmf 7 Self-Drill - [id number] Screw 2 X 8mm Cross 11-04-19 17 Pin Locking - [id number] Screw 2 X 10mm Cross 017 Pin Locking - [id number] Screw 2 X 12mm Cross 017 Pin Locking - [id number] Bone Infuse Bone 11-03-2016 Graft Sm - [id number] Cement Bone 12-24-2016 Radiopaque Simplex P Single Dose - [id number] Tube Sz8 Trach 08-26-2016 Cuffed - [id number] Tube 22fr Feeding 08-26-2016 Gastrostomy Junior - [id number] Screw 2.4 X 32mm Va 08-28-19 17 Lock Self-Tap Strdrv Rec - [id number] Screw 2.4 X 44mm Va 08-28-19 17 Lock Self-Tap Strdrv Rec - [id number] Screw 2.4 X 36mm 08-27-2016 Cortex Self-Tap T8 Strdrv Rec - [id number] Screw 2.4 X 38mm 08-27-2016 Cortex Self-Tap T8 Strdrv Rec - [id number] Wire K .045 X 5.5in 08-28-19 17 W/Wire Guide - [id number] Plate 2.4mm 2.7mm 08-27-2016 Va-Lock Mesh 5 X 12hls - [id number] Wire 15 X 150mm 08-27-2016 Compression Thrd - [id number] 1.6mm Compression 08-27-2016 Wires 20mm Thread Length, 1500mm Total Length Screw 2.4 X 18mm [place] 017 Ang Lock Strdrv - [id number] Screw 2.4 X 20mm [place] 017 Ang Lock Strdrv - [id number] Screw 2.4 X 22mm [place] 017 Ang Lock Strdrv - [id number] Hemostat 8 X 12.5cm 11-04-19 17 X 10mm Surgifoam Gelatin Sponge - [id number] Screw 2.5 X 4mm Ti 7 Schanz 14mm Thrd Body - [id number] Hemostat 2 X 14in 12-03-2016 Surgicel - [id number] Bone Infuse Bone 11-03-2016 Graft Sm - [id number] Cement Bone 12-24-2016 Radiopaque Simplex P Single Dose - [id number] Tube Sz8 Trach 08-26-2016 Cuffed - [id number] Tube 22fr Feeding 08-26-2016 Gastrostomy Junior - [id number] Screw 2.4 X 32mm Va 08-28-19 17 Lock Self-Tap Strdrv Rec - [id number] Screw 2.4 X 44mm Va 08-28-19 17 Lock Self-Tap Strdrv Rec - [id number] Screw 2.4 X 36mm 08-27-2016 Cortex Self-Tap T8 Strdrv Rec - [id number] Screw 2.4 X 38mm 08-27-2016 Cortex Self-Tap T8 Strdrv Rec - [id number] Wire K .045 X 5.5in 08-28-19 17 W/Wire Guide - [id number] Plate 2.4mm 2.7mm 08-27-2016 Va-Lock Mesh 5 X 12hls - [id number] Wire 15 X 150mm 08-27-2016 Compression Thrd - [id number] 1.6mm Compression 08-27-2016 Wires 20mm Thread Length, 1500mm Total Length Screw 2.4 X 18mm Moraima 017 Ang Lock Strdrv - [id number] Screw 2.4 X 20mm [place] 017 Ang Lock Strdrv - [id number] Screw 2.4 X 22mm [place] 017 Ang Lock Strdrv - [id number] Hemostat 8 X 12.5cm 11-04-19 17 X 10mm Surgifoam Gelatin Sponge - [id number] Screw 2.5 X 4mm Ti 7 Schanz 14mm Thrd Body - [id number] Hemostat 2 X 14in 12-03-2016 Surgicel - [id number] Bone Infuse Bone 11-03-2016 Graft Sm - [id number] Cement Bone 12-24-2016 Radiopaque Simplex P Single Dose - [id number] Tube Sz8 Trach 08-26-2016 Cuffed - [id number] Tube 22fr Feeding 08-26-2016 Gastrostomy Junior - [id number] Screw 2.4 X 32mm Va 08-28-19 17 Lock Self-Tap Strdrv Rec - [id number] Screw 2.4 X 44mm Va 08-28-19 17 Lock Self-Tap Strdrv Rec - [id number] Screw 2.4 X 36mm 08-27-2016 Cortex Self-Tap T8 Strdrv Rec - [id number] Screw 2.4 X 38mm 08-27-2016 Cortex Self-Tap T8 Strdrv Rec - [id number] Wire K .045 X 5.5in 08-28-19 17 W/Wire Guide - [id number] Plate 2.4mm 2.7mm 08-27-2016 Va-Lock Mesh 5 X 12hls - [id number] Wire 15 X 150mm 08-27-2016 Compression Thrd - [id number] 1.6mm Compression 08-27-2016 Wires 20mm Thread Length, 1500mm Total Length Screw 2.4 X 18mm [place] 017 Ang Lock Strdrv - [id number] Screw 2.4 X 20mm [place] 017 Ang Lock Strdrv - [id number] Screw 2.4 X 22mm [place] 017 Ang Lock Strdrv - [id number] Hemostat 8 X 12.5cm 11-04-19 17 X 10mm Surgifoam Gelatin Sponge - [id number] Screw 2.5 X 4mm Ti 7 Schanz 14mm Thrd Body - [id number] Hemostat 2 X 14in 12-03-2016 Surgicel - [id number] Bone Infuse Bone 11-03-2016 Graft Sm - [id number] Cement Bone 12-24-2016 Radiopaque Simplex P Single Dose - [id number] Tube Sz8 Trach 08-26-2016 Cuffed - [id number] Tube 22fr Feeding 08-26-2016 Gastrostomy Junior - [id number] Screw 2.4 X 32mm Va 08-28-19 17 Lock Self-Tap Strdrv Rec - [id number] Screw 2.4 X 44mm Va 08-28-19 17 Lock Self-Tap Strdrv Rec - [id number] Screw 2.4 X 36mm 08-27-2016 Cortex Self-Tap T8 Strdrv Rec - [id number] Screw 2.4 X 38mm 08-27-2016 Cortex Self-Tap T8 Strdrv Rec - [id number] Wire K .045 X 5.5in 08-28-19 17 W/Wire Guide - [id number] Plate 2.4mm 2.7mm 08-27-2016 Va-Lock Mesh 5 X 12hls - [id number] Wire 15 X 150mm 08-27-2016 Compression Thrd - [id number] 1.6mm Compression 08-27-2016 Wires 20mm Thread Length, 1500mm Total Length Screw 2.4 X 18mm [place] 017 Ang Lock Strdrv - [id number] Screw 2.4 X 20mm [place] 017 Ang Lock Strdrv - [id number] Screw 2.4 X 22mm [place] 017 Ang Lock Strdrv - [id number] Hemostat 8 X 12.5cm 11-04-19 17 X 10mm Surgifoam Gelatin Sponge - [id number] Screw 2.5 X 4mm Ti 7 Schanz 14mm Thrd Body - [id number] Hemostat 2 X 14in 12-03-2016 Surgicel - [id number] Bone Infuse Bone 11-03-2016 Graft Sm - [id number] Cement Bone 12-24-2016 Radiopaque Simplex P Single Dose - [id number] Tube Sz8 Trach 08-26-2016 Cuffed - [id number] Tube 22fr Feeding 08-26-2016 Gastrostomy Junior - [id number] Screw 2.4 X 32mm Va 08-28-19 17 Lock Self-Tap Strdrv Rec - [id number] Screw 2.4 X 44mm Va 08-28-19 17 Lock Self-Tap Strdrv Rec - [id number] Screw 2.4 X 36mm 08-27-2016 Cortex Self-Tap T8 Strdrv Rec - [id number] Screw 2.4 X 38mm 08-27-2016 Cortex Self-Tap T8 Strdrv Rec - [id number] Wire K .045 X 5.5in 08-28-19 17 W/Wire Guide - [id number] Plate 2.4mm 2.7mm 08-27-2016 Va-Lock Mesh 5 X 12hls - [id number] Wire 15 X 150mm 08-27-2016 Compression Thrd - [id number] 1.6mm Compression 08-27-2016 Wires 20mm Thread Length, 1500mm Total Length Screw 2.4 X 18mm [place] 017 Ang Lock Strdrv - [id number] Screw 2.4 X 20mm [place] 017 Ang Lock Strdrv - [id number] Screw 2.4 X 22mm [place] 017 Ang Lock Strdrv - [id number] Hemostat 8 X 12.5cm 11-04-19 17 X 10mm Surgifoam Gelatin Sponge - [id number] Screw 2.5 X 4mm Ti 7 Schanz 14mm Thrd Body - [id number] Hemostat 2 X 14in 12-03-2016 Surgicel - [id number] Bone Infuse Bone 11-03-2016 Graft Sm - [id number] Cement Bone 12-24-2016 Radiopaque Simplex P Single Dose - [id number] Tube Sz8 Trach 08-26-2016 Cuffed - [id number] Tube 22fr Feeding 08-26-2016 Gastrostomy Junior - [id number] Screw 2.4 X 32mm Va 08-28-19 17 Lock Self-Tap Strdrv Rec - [id number] Screw 2.4 X 44mm Va 08-28-19 17 Lock Self-Tap Strdrv Rec - [id number] Screw 2.4 X 36mm 08-27-2016 Cortex Self-Tap T8 Strdrv Rec - [id number] Screw 2.4 X 38mm 08-27-2016 Cortex Self-Tap T8 Strdrv Rec - [id number] Wire K .045 X 5.5in 08-28-19 17 W/Wire Guide - [id number] Plate 2.4mm 2.7mm 08-27-2016 Va-Lock Mesh 5 X 12hls - [id number] Wire 15 X 150mm 08-27-2016 Compression Thrd - [id number] 1.6mm Compression 08-27-2016 Wires 20mm Thread Length, 1500mm Total Length Screw 2.4 X 18mm [place] 017 Ang Lock Strdrv - [id number] Screw 2.4 X 20mm [place] 017 Ang Lock Strdrv - [id number] Screw 2.4 X 22mm [place] 017 Ang Lock Strdrv - [id number] Hemostat 8 X 12.5cm 11-04-19 17 X 10mm Surgifoam Gelatin Sponge - [id number] Screw 2.5 X 4mm Ti 7 Schanz 14mm Thrd Body - [id number] Hemostat 2 X 14in 12-03-2016 Surgicel - [id number] Bone Infuse Bone 11-03-2016 Graft Sm - [id number] Cement Bone 12-24-2016 Radiopaque Simplex P Single Dose - [id number] Tube Sz8 Trach 08-26-2016 Cuffed - [id number] Tube 22fr Feeding 08-26-2016 Gastrostomy Junior - Ifc649368 Screw 2.4 X 32mm Va 08-28-19 17 Lock Self-Tap Strdrv Rec - [id number] Screw 2.4 X 44mm Va 08-28-19 17 Lock Self-Tap Strdrv Rec - [id number] Screw 2.4 X 36mm 08-27-2016 Cortex Self-Tap T8 Strdrv Rec - [id number] Screw 2.4 X 38mm 08-27-2016 Cortex Self-Tap T8 Strdrv Rec - [id number] Wire K .045 X 5.5in 08-28-19 17 W/Wire Guide - [id number] Plate 2.4mm 2.7mm 08-27-2016 Va-Lock Mesh 5 X 12hls - [id number] Wire 15 X 150mm 08-27-2016 Compression Thrd - [id number] 1.6mm Compression 08-27-2016 Wires 20mm Thread Length, 1500mm Total Length Screw 2.4 X 18mm [place] 017 Ang Lock Strdrv - [id number] Screw 2.4 X 20mm [place] 017 Ang Lock Strdrv - Zne866390 Screw 2.4 X 22mm [place] 017 Ang Lock Strdrv - Yge186646 Hemostat 8 X 12.5cm 11-04-19 17 X 10mm Surgifoam Gelatin Sponge - [id number] Screw 2.5 X 4mm Ti 7 Schanz 14mm Thrd Body - [id number] Hemostat 2 X 14in 12-03-2016 Surgicel - [id number] Bone Infuse Bone 11-03-2016 Graft Sm - [id number] Cement Bone 12-24-2016 Radiopaque Simplex P Single Dose - [id number] Tube Sz8 Trach 08-26-2016 Cuffed - [id number] Tube 22fr Feeding 08-26-2016 Gastrostomy Junior - Dzx006378 Screw 2.4 X 32mm Va 08-28-19 17 Lock Self-Tap Strdrv Rec - [id number] Screw 2.4 X 44mm Va 08-28-19 17 Lock Self-Tap Strdrv Rec - [id number] Screw 2.4 X 36mm 08-27-2016 Cortex Self-Tap T8 Strdrv Rec - Sgw208592 Screw 2.4 X 38mm 08-27-2016 Cortex Self-Tap T8 Strdrv Rec - [id number] Wire K .045 X 5.5in 08-28-19 17 W/Wire Guide - [id number] Plate 2.4mm 2.7mm 08-27-2016 Va-Lock Mesh 5 X 12hls - [id number] Wire 15 X 150mm 08-27-2016 Compression Thrd - [id number] 1.6mm Compression 08-27-2016 Wires 20mm Thread Length, 1500mm Total Length Screw 2.4 X 18mm [place] 017 Ang Lock Strdrv - [id number] Screw 2.4 X 20mm [place] 017 Ang Lock Strdrv - [id number] Screw 2.4 X 22mm [place] 017 Ang Lock Strdrv - [id number] Hemostat 8 X 12.5cm 11-04-19 17 X 10mm Surgifoam Gelatin Sponge - [id number] Screw 2.5 X 4mm Ti 7 Schanz 14mm Thrd Body - Enz6660147 Hemostat 2 X 14in 12-03-2016 Surgicel - [id number] Bone Infuse Bone 11-03-2016 Graft Sm - [id number] Cement Bone 12-24-2016 Radiopaque Simplex P Single Dose - [id number] Tube Sz8 Trach 08-26-2016 Cuffed - [id number] Tube 22fr Feeding 08-26-2016 Gastrostomy Junior - Gce837654 Screw 2.4 X 32mm Va 08-28-19 17 Lock Self-Tap Strdrv Rec - [id number] Screw 2.4 X 44mm Va 08-28-19 17 Lock Self-Tap Strdrv Rec - [id number] Screw 2.4 X 36mm 08-27-2016 Cortex Self-Tap T8 Strdrv Rec - [id number] Screw 2.4 X 38mm 08-27-2016 Cortex Self-Tap T8 Strdrv Rec - [id number] Wire K .045 X 5.5in 08-28-19 17 W/Wire Guide - [id number] Plate 2.4mm 2.7mm 08-27-2016 Va-Lock Mesh 5 X 12hls - [id number] Wire 15 X 150mm 08-27-2016 Compression Thrd - [id number] 1.6mm Compression 08-27-2016 Wires 20mm Thread Length, 1500mm Total Length Screw 2.4 X 18mm [place] 017 Ang Lock Strdrv - [id number] Screw 2.4 X 20mm [place] 017 Ang Lock Strdrv - [id number] Screw 2.4 X 22mm [place] 017 Ang Lock Strdrv - [id number] Hemostat 8 X 12.5cm 11-04-19 17 X 10mm Surgifoam Gelatin Sponge - Btz0675743 Screw 2.5 X 4mm Ti 7 Schanz 14mm Thrd Body - [id number] Hemostat 2 X 14in 12-03-2016 Surgicel - [id number] Bone Infuse Bone 11-03-2016 Graft Sm - [id number] Cement Bone 12-24-2016 Radiopaque Simplex P Single Dose - [id number] Tube Sz8 Trach 08-26-2016 Cuffed - Nwz417562 Tube 22fr Feeding 08-26-2016 Gastrostomy Junior - Dnv450489 Screw 2.4 X 32mm Va 08-28-19 17 Lock Self-Tap Strdrv Rec - [id number] Screw 2.4 X 44mm Va 08-28-19 17 Lock Self-Tap Strdrv Rec - [id number] Screw 2.4 X 36mm 08-27-2016 Cortex Self-Tap T8 Strdrv Rec - [id number] Screw 2.4 X 38mm 08-27-2016 Cortex Self-Tap T8 Strdrv Rec - [id number] Wire K .045 X 5.5in 08-28-19 17 W/Wire Guide - [id number] Plate 2.4mm 2.7mm 08-27-2016 Va-Lock Mesh 5 X 12hls - [id number] Wire 15 X 150mm 08-27-2016 Compression Thrd - [id number] 1.6mm Compression 08-27-2016 Wires 20mm Thread Length, 1500mm Total Length Screw 2.4 X 18mm [place] 017 Ang Lock Strdrv - [id number] Screw 2.4 X 20mm [place] 017 Ang Lock Strdrv - Arq885155 Screw 2.4 X 22mm [place] 017 Ang Lock Strdrv - [id number] Hemostat 8 X 12.5cm 11-04-19 17 X 10mm Surgifoam Gelatin Sponge - Gph5097743 Screw 2.5 X 4mm Ti 7 Schanz 14mm Thrd Body - [id number] Hemostat 2 X 14in 12-03-2016 Surgicel - [id number] Bone Infuse Bone 11-03-2016 Graft Sm - [id number] Bone Infuse Bone 05-25-2017 Graft Xsm - [id number] Cement Bone 12-24-2016 Radiopaque Simplex P Single Dose - [id number] Tube Sz8 Trach 08-26-2016 Cuffed - Yim320135 Tube 22fr Feeding 08-26-2016 Gastrostomy Junior - [id number] Screw 2.4 X 32mm Va 08-28-19 17 Lock Self-Tap Strdrv Rec - [id number] Screw 2.4 X 44mm Va 08-28-19 17 Lock Self-Tap Strdrv Rec - [id number] Screw 2.4 X 36mm 08-27-2016 Cortex Self-Tap T8 Strdrv Rec - Kvm376481 Screw 2.4 X 38mm 08-27-2016 Cortex Self-Tap T8 Strdrv Rec - Icb018980 Wire K .045 X 5.5in 08-28-19 17 W/Wire Guide - [id number] Plate 2.4mm 2.7mm 08-27-2016 Va-Lock Mesh 5 X 12hls - [id number] Wire 15 X 150mm 08-27-2016 Compression Thrd - [id number] 1.6mm Compression 08-27-2016 Wires 20mm Thread Length, 1500mm Total Length Screw 2.4 X 18mm [place] 017 Ang Lock Strdrv - [id number] Screw 2.4 X 20mm [place] 017 Ang Lock Strdrv - Smg846534 Screw 2.4 X 22mm [place] 017 Ang Lock Strdrv - [id number] Hemostat 8 X 12.5cm 11-04-19 17 X 10mm Surgifoam Gelatin Sponge - Gyj6603732 Screw 2.5 X 4mm Ti 7 Schanz 14mm Thrd Body - [id number] Hemostat 2 X 14in 12-03-2016 Surgicel - [id number] Hemostat 8 X 6.25cm 05-25-19 18 X 10mm Surgifoam Gelatin Sponge - [id number] Screw 2 X 10mm Cross 018 Pin Locking - [id number] Screw 2 X 14mm Cross 018 Pin Locking - [id number] Plate 11hl Str Recon 018 - Ggj6451756 Bone Infuse Bone 11-03-2016 Graft Sm - Ywx0698554 Cement Bone 12-24-2016 Radiopaque Simplex P Single Dose - [id number] Tube Sz8 Trach 08-26-2016 Cuffed - [id number] Tube 22fr Feeding 08-26-2016 Gastrostomy Junior - Cgw209398 Screw 2.4 X 32mm Va 08-28-19 17 Lock Self-Tap Strdrv Rec - [id number] Screw 2.4 X 44mm Va 08-28-19 17 Lock Self-Tap Strdrv Rec - [id number] Screw 2.4 X 36mm 08-27-2016 Cortex Self-Tap T8 Strdrv Rec - Yfo648383 Screw 2.4 X 38mm 08-27-2016 Cortex Self-Tap T8 Strdrv Rec - [id number] Wire K .045 X 5.5in 08-28-19 17 W/Wire Guide - [id number] Plate 2.4mm 2.7mm 08-27-2016 Va-Lock Mesh 5 X 12hls - Vlq184790 Wire 15 X 150mm 08-27-2016 Compression Thrd - [id number] 1.6mm Compression 08-27-2016 Wires 20mm Thread Length, 1500mm Total Length Screw 2.4 X 18mm [place] 017 Ang Lock Strdrv - Cue164904 Screw 2.4 X 20mm [place] 017 Ang Lock Strdrv - [id number] Bone Infuse Bone 11-03-2016 Graft Sm - [id number] Hemostat 8 X 12.5cm 11-04-19 17 X 10mm Surgifoam Gelatin Sponge - Ild2988372 Screw 2.5 X 4mm Ti 7 Schanz 14mm Thrd Body - [id number] Hemostat 2 X 14in 12-03-2016 Surgicel - [id number] Bone Infuse Bone 11-03-2016 Graft Sm - Yhu7277214 Cement Bone 12-24-2016 Radiopaque Simplex P Single Dose - [id number] Tube Sz8 Trach 08-26-2016 Cuffed - Fgs034648 Tube 22fr Feeding 08-26-2016 Gastrostomy Junior - Oux489608 Screw 2.4 X 32mm Va 08-28-19 17 Lock Self-Tap Strdrv Rec - [id number] Screw 2.4 X 44mm Va 08-28-19 17 Lock Self-Tap Strdrv Rec - [id number] Screw 2.4 X 36mm 08-27-2016 Cortex Self-Tap T8 Strdrv Rec - Kgv560999 Screw 2.4 X 38mm 08-27-2016 Cortex Self-Tap T8 Strdrv Rec - [id number] Wire K .045 X 5.5in 08-28-19 17 W/Wire Guide - [id number] Plate 2.4mm 2.7mm 08-27-2016 Va-Lock Mesh 5 X 12hls - Fuw369153 Wire 15 X 150mm 08-27-2016 Compression Thrd - [id number] 1.6mm Compression 08-27-2016 Wires 20mm Thread Length, 1500mm Total Length Screw 2.4 X 18mm [place] 017 Ang Lock Strdrv - [id number] Screw 2.4 X 20mm [place] 017 Ang Lock Strdrv - [id number] Screw 2.4 X 22mm [place] 017 Ang Lock Strdrv - Wvt969948 Hemostat 8 X 12.5cm 11-04-19 17 X 10mm Surgifoam Gelatin Sponge - [id number] Screw 2.5 X 4mm Ti 7 Schanz 14mm Thrd Body - [id number] Hemostat 2 X 14in 12-03-2016 Surgicel - [id number] Bone Infuse Bone 11-03-2016 Graft Sm - [id number] Cement Bone 12-24-2016 Radiopaque Simplex P Single Dose - [id number] Tube Sz8 Trach 08-26-2016 Cuffed - [id number] Tube 22fr Feeding 08-26-2016 Gastrostomy Junior - [id number] Screw 2.4 X 32mm Va 08-28-19 17 Lock Self-Tap Strdrv Rec - [id number] Screw 2.4 X 44mm Va 08-28-19 17 Lock Self-Tap Strdrv Rec - Iba845809 Screw 2.4 X 36mm 08-27-2016 Cortex Self-Tap T8 Strdrv Rec - [id number] Screw 2.4 X 38mm 08-27-2016 Cortex Self-Tap T8 Strdrv Rec - [id number] Wire K .045 X 5.5in 08-28-19 17 W/Wire Guide - [id number] Plate 2.4mm 2.7mm 08-27-2016 Va-Lock Mesh 5 X 12hls - [id number] Wire 15 X 150mm 08-27-2016 Compression Thrd - [id number] 1.6mm Compression 08-27-2016 Wires 20mm Thread Length, 1500mm Total Length Screw 2.4 X 18mm [place] 017 Ang Lock Strdrv - [id number] Screw 2.4 X 20mm [place] 017 Ang Lock Strdrv - [id number] Screw 2.4 X 22mm [place] 017 Ang Lock Strdrv - [id number] Hemostat 8 X 12.5cm 11-04-19 17 X 10mm Surgifoam Gelatin Sponge - [id number] Screw 2.5 X 4mm Ti 7 Schanz 14mm Thrd Body - [id number] Hemostat 2 X 14in 12-03-2016 Surgicel - [id number] Bone Infuse Bone 11-03-2016 Graft Sm - [id number] Cement Bone 12-24-2016 Radiopaque Simplex P Single Dose - [id number] Tube Sz8 Trach 08-26-2016 Cuffed - Ubk064743 Tube 22fr Feeding 08-26-2016 Gastrostomy Junior - Cbn045135 Screw 2.4 X 32mm Va 08-28-19 17 Lock Self-Tap Strdrv Rec - Zei534773 Screw 2.4 X 44mm Va 08-28-19 17 Lock Self-Tap Strdrv Rec - [id number] Screw 2.4 X 36mm 08-27-2016 Cortex Self-Tap T8 Strdrv Rec - [id number] Screw 2.4 X 38mm 08-27-2016 Cortex Self-Tap T8 Strdrv Rec - Xxc344727 Wire K .045 X 5.5in 08-28-19 17 W/Wire Guide - [id number] Plate 2.4mm 2.7mm 08-27-2016 Va-Lock Mesh 5 X 12hls - Sph696659 Wire 15 X 150mm 08-27-2016 Compression Thrd - [id number] 1.6mm Compression 08-27-2016 Wires 20mm Thread Length, 1500mm Total Length Screw 2.4 X 18mm [place] 017 Ang Lock Strdrv - [id number] Screw 2.4 X 20mm [place] 017 Ang Lock Strdrv - Mhy102861 Screw 2.4 X 22mm [place] 017 Ang Lock Strdrv - [id number] Hemostat 8 X 12.5cm 11-04-19 17 X 10mm Surgifoam Gelatin Sponge - [id number] Screw 2.5 X 4mm Ti 7 Schanz 14mm Thrd Body - [id number] Hemostat 2 X 14in 12-03-2016 Surgicel - [id number] Bone Infuse Bone 11-03-2016 Graft Sm - [id number] Bone Infuse Bone 05-25-2017 Graft Xsm - [id number] Cement Bone 12-24-2016 Radiopaque Simplex P Single Dose - [id number] Tube Sz8 Trach 08-26-2016 Cuffed - [id number] Tube 22fr Feeding 08-26-2016 Gastrostomy Junior - Ymu286544 Screw 2.4 X 32mm Va 08-28-19 17 Lock Self-Tap Strdrv Rec - [id number] Screw 2.4 X 44mm Va 08-28-19 17 Lock Self-Tap Strdrv Rec - Zzf957444 Screw 2.4 X 36mm 08-27-2016 Cortex Self-Tap T8 Strdrv Rec - [id number] Screw 2.4 X 38mm 08-27-2016 Cortex Self-Tap T8 Strdrv Rec - [id number] Wire K .045 X 5.5in 08-28-19 17 W/Wire Guide - [id number] Plate 2.4mm 2.7mm 08-27-2016 Va-Lock Mesh 5 X 12hls - [id number] Wire 15 X 150mm 08-27-2016 Compression Thrd - [id number] 1.6mm Compression 08-27-2016 Wires 20mm Thread Length, 1500mm Total Length Screw 2.4 X 18mm [place] 017 Ang Lock Strdrv - [id number] Screw 2.4 X 20mm [place] 017 Ang Lock Strdrv - [id number] Screw 2.4 X 22mm [place] 017 Ang Lock Strdrv - [id number] Hemostat 8 X 12.5cm 11-04-19 17 X 10mm Surgifoam Gelatin Sponge - [id number] Screw 2.5 X 4mm Ti 7 Schanz 14mm Thrd Body - [id number] Hemostat 2 X 14in 12-03-2016 Surgicel - Juq7857737 Hemostat 8 X 6.25cm 05-25-19 18 X 10mm Surgifoam Gelatin Sponge - [id number] Screw 2 X 10mm Cross 018 Pin Locking - [id number] Screw 2 X 14mm Cross 018 Pin Locking - [id number] Plate 11hl Str Recon 018 - [id number] Bone Infuse Bone 11-03-2016 Graft Sm - Elc4162221 Bone Infuse Bone 05-25-2017 Graft Xsm - [id number] Cement Bone 12-24-2016 Radiopaque Simplex P Single Dose - [id number] Tube Sz8 Trach 08-26-2016 Cuffed - Pbp945035 Tube 22fr Feeding 08-26-2016 Gastrostomy Junior - Dei368787 Screw 2.4 X 32mm Va 08-28-19 17 Lock Self-Tap Strdrv Rec - [id number] Screw 2.4 X 44mm Va 08-28-19 17 Lock Self-Tap Strdrv Rec - [id number] Screw 2.4 X 36mm 08-27-2016 Cortex Self-Tap T8 Strdrv Rec - [id number] Screw 2.4 X 38mm 08-27-2016 Cortex Self-Tap T8 Strdrv Rec - [id number] Wire K .045 X 5.5in 08-28-19 17 W/Wire Guide - [id number] Plate 2.4mm 2.7mm 08-27-2016 Va-Lock Mesh 5 X 12hls - [id number] Wire 15 X 150mm 08-27-2016 Compression Thrd - [id number] 1.6mm Compression 08-27-2016 Wires 20mm Thread Length, 1500mm Total Length Screw 2.4 X 18mm [place] 017 Ang Lock Strdrv - [id number] Screw 2.4 X 20mm [place] 017 Ang Lock Strdrv - [id number] Screw 2.4 X 22mm [place] 017 Ang Lock Strdrv - [id number] Hemostat 8 X 12.5cm 11-04-19 17 X 10mm Surgifoam Gelatin Sponge - Gev7796551 Screw 2.5 X 4mm Ti 7 Schanz 14mm Thrd Body - Srj6683638 Hemostat 2 X 14in 12-03-2016 Surgicel - [id number] Hemostat 8 X 6.25cm 05-25-19 18 X 10mm Surgifoam Gelatin Sponge - Nls3606937 Screw 2 X 10mm Cross 018 Pin Locking - [id number] Screw 2 X 14mm Cross 018 Pin Locking - [id number] Plate 11hl Str Recon 018 - [id number] Bone Infuse Bone 11-03-2016 Graft Sm - [id number] Bone Infuse Bone 05-25-2017 Graft Xsm - [id number] Cement Bone 12-24-2016 Radiopaque Simplex P Single Dose - [id number] Tube Sz8 Trach 08-26-2016 Cuffed - [id number] Tube 22fr Feeding 08-26-2016 Gastrostomy Junior - [id number] Screw 2.4 X 32mm Va 08-28-19 17 Lock Self-Tap Strdrv Rec - [id number] Screw 2.4 X 44mm Va 08-28-19 17 Lock Self-Tap Strdrv Rec - [id number] Screw 2.4 X 36mm 08-27-2016 Cortex Self-Tap T8 Strdrv Rec - [id number] Screw 2.4 X 38mm 08-27-2016 Cortex Self-Tap T8 Strdrv Rec - [id number] Wire K .045 X 5.5in 08-28-19 17 W/Wire Guide - [id number] Plate 2.4mm 2.7mm 08-27-2016 Va-Lock Mesh 5 X 12hls - [id number] Wire 15 X 150mm 08-27-2016 Compression Thrd - [id number] 1.6mm Compression 08-27-2016 Wires 20mm Thread Length, 1500mm Total Length Screw 2.4 X 18mm [place] 017 Ang Lock Strdrv - [id number] Screw 2.4 X 20mm [place] 017 Ang Lock Strdrv - [id number] Screw 2.4 X 22mm [place] 017 Ang Lock Strdrv - Mwz915906 Hemostat 8 X 12.5cm 11-04-19 17 X 10mm Surgifoam Gelatin Sponge - [id number] Screw 2.5 X 4mm Ti 7 Schanz 14mm Thrd Body - Gyl6887470 Hemostat 2 X 14in 12-03-2016 Surgicel - [id number] Hemostat 8 X 6.25cm 05-25-19 18 X 10mm Surgifoam Gelatin Sponge - Isv3283733 Screw 2 X 10mm Cross 018 Pin Locking - [id number] Screw 2 X 14mm Cross 018 Pin Locking - [id number] Plate 11hl Str Recon 018 - [id number] Bone Infuse Bone 11-03-2016 Graft Sm - [id number] Bone Infuse Bone 05-25-2017 Graft Xsm - [id number] Cement Bone 12-24-2016 Radiopaque Simplex P Single Dose - [id number] Tube Sz8 Trach 08-26-2016 Cuffed - [id number] Tube 22fr Feeding 08-26-2016 Gastrostomy Junior - [id number] Screw 2.4 X 32mm Va 08-28-19 17 Lock Self-Tap Strdrv Rec - [id number] Screw 2.4 X 44mm Va 08-28-19 17 Lock Self-Tap Strdrv Rec - [id number] Screw 2.4 X 36mm 08-27-2016 Cortex Self-Tap T8 Strdrv Rec - [id number] Screw 2.4 X 38mm 08-27-2016 Cortex Self-Tap T8 Strdrv Rec - [id number] Wire K .045 X 5.5in 08-28-19 17 W/Wire Guide - [id number] Plate 2.4mm 2.7mm 08-27-2016 Va-Lock Mesh 5 X 12hls - [id number] Wire 15 X 150mm 08-27-2016 Compression Thrd - [id number] 1.6mm Compression 08-27-2016 Wires 20mm Thread Length, 1500mm Total Length Screw 2.4 X 18mm [place] 017 Ang Lock Strdrv - [id number] Screw 2.4 X 20mm [place] 017 Ang Lock Strdrv - [id number] Screw 2.4 X 22mm [place] 017 Ang Lock Strdrv - [id number] Hemostat 8 X 12.5cm 11-04-19 17 X 10mm Surgifoam Gelatin Sponge - [id number] Screw 2.5 X 4mm Ti 7 Schanz 14mm Thrd Body - [id number] Hemostat 2 X 14in 12-03-2016 Surgicel - [id number] Hemostat 8 X 6.25cm 05-25-19 18 X 10mm Surgifoam Gelatin Sponge - Mmp9155732 Screw 2 X 10mm Cross 018 Pin Locking - [id number] Screw 2 X 14mm Cross 018 Pin Locking - [id number] Plate 11hl Str Recon 018 - [id number] Bone Infuse Bone 11-03-2016 Graft Sm - [id number] Bone Infuse Bone 05-25-2017 Graft Xsm - [id number] Cement Bone 12-24-2016 Radiopaque Simplex P Single Dose - [id number] Tube Sz8 Trach 08-26-2016 Cuffed - [id number] Tube 22fr Feeding 08-26-2016 Gastrostomy Junior - [id number] Screw 2.4 X 32mm Va 08-28-19 17 Lock Self-Tap Strdrv Rec - [id number] Screw 2.4 X 44mm Va 08-28-19 17 Lock Self-Tap Strdrv Rec - [id number] Screw 2.4 X 36mm 08-27-2016 Cortex Self-Tap T8 Strdrv Rec - [id number] Screw 2.4 X 38mm 08-27-2016 Cortex Self-Tap T8 Strdrv Rec - [id number] Wire K .045 X 5.5in 08-28-19 17 W/Wire Guide - [id number] Plate 2.4mm 2.7mm 08-27-2016 Va-Lock Mesh 5 X 12hls - [id number] Wire 15 X 150mm 08-27-2016 Compression Thrd - [id number] 1.6mm Compression 08-27-2016 Wires 20mm Thread Length, 1500mm Total Length Screw 2.4 X 18mm Moraima 017 Ang Lock Strdrv - [id number] Screw 2.4 X 20mm Mor[place] 017 Ang Lock Strdrv - [id number] Screw 2.4 X 22mm Mor[place] 017 Ang Lock Strdrv - [id number] Hemostat 8 X 12.5cm 11-04-19 17 X 10mm Surgifoam Gelatin Sponge - [id number] Screw 2.5 X 4mm Ti 7 Schanz 14mm Thrd Body - [id number] Hemostat 2 X 14in 12-03-2016 Surgicel - [id number] Hemostat 8 X 6.25cm 05-25-19 18 X 10mm Surgifoam Gelatin Sponge - [id number] Screw 2 X 10mm Cross 018 Pin Locking - [id number] Screw 2 X 14mm Cross 018 Pin Locking - [id number] Plate 11hl Str Recon 018 - [id number] Bone Infuse Bone 11-03-2016 Graft Sm - [id number] Bone Infuse Bone 05-25-2017 Graft Xsm - [id number] Cement Bone 12-24-2016 Radiopaque Simplex P Single Dose - [id number] Tube Sz8 Trach 08-26-2016 Cuffed - [id number] Tube 22fr Feeding 08-26-2016 Gastrostomy Junior - [id number] Screw 2.4 X 32mm Va 08-28-19 17 Lock Self-Tap Strdrv Rec - [id number] Screw 2.4 X 44mm Va 08-28-19 17 Lock Self-Tap Strdrv Rec - [id number] Screw 2.4 X 36mm 08-27-2016 Cortex Self-Tap T8 Strdrv Rec - [id number] Screw 2.4 X 38mm 08-27-2016 Cortex Self-Tap T8 Strdrv Rec - [id number] Wire K .045 X 5.5in 08-28-19 17 W/Wire Guide - [id number] Plate 2.4mm 2.7mm 08-27-2016 Va-Lock Mesh 5 X 12hls - [id number] Wire 15 X 150mm 08-27-2016 Compression Thrd - [id number] 1.6mm Compression 08-27-2016 Wires 20mm Thread Length, 1500mm Total Length Screw 2.4 X 18mm Moraima 017 Ang Lock Strdrv - [id number] Screw 2.4 X 20mm [place] 017 Ang Lock Strdrv - [id number] Screw 2.4 X 22mm [place] 017 Ang Lock Strdrv - [id number] Hemostat 8 X 12.5cm 11-04-19 17 X 10mm Surgifoam Gelatin Sponge - [id number] Screw 2.5 X 4mm Ti 7 Schanz 14mm Thrd Body - [id number] Hemostat 2 X 14in 12-03-2016 Surgicel - [id number] Hemostat 8 X 6.25cm 05-25-19 18 X 10mm Surgifoam Gelatin Sponge - [id number] Screw 2 X 10mm Cross 018 Pin Locking - [id number] Screw 2 X 14mm Cross 018 Pin Locking - [id number] Plate 11hl Str Recon 018 - [id number] Bone Infuse Bone 11-03-2016 Graft Sm - [id number] Cement Bone 12-24-2016 Radiopaque Simplex P Single Dose - [id number] Tube Sz8 Trach 08-26-2016 Cuffed - [id number] Tube 22fr Feeding 08-26-2016 Gastrostomy Junior - [id number] Screw 2.4 X 32mm Va 08-28-19 17 Lock Self-Tap Strdrv Rec - [id number] Screw 2.4 X 44mm Va 08-28-19 17 Lock Self-Tap Strdrv Rec - [id number] Screw 2.4 X 36mm 08-27-2016 Cortex Self-Tap T8 Strdrv Rec - [id number] Screw 2.4 X 38mm 08-27-2016 Cortex Self-Tap T8 Strdrv Rec - [id number] Wire K .045 X 5.5in 08-28-19 17 W/Wire Guide - [id number] Plate 2.4mm 2.7mm 08-27-2016 Va-Lock Mesh 5 X 12hls - [id number] Wire 15 X 150mm 08-27-2016 Compression Thrd - [id number] 1.6mm Compression 08-27-2016 Wires 20mm Thread Length, 1500mm Total Length Screw 2.4 X 18mm Moraima 017 Ang Lock Strdrv - [id number] Screw 2.4 X 20mm Moraima 017 Ang Lock Strdrv - [id number] Screw 2.4 X 22mm Moraima 017 Ang Lock Strdrv - [id number] Hemostat 8 X 12.5cm 11-04-19 17 X 10mm Surgifoam Gelatin Sponge - [id number] Screw 2.5 X 4mm Ti 7 Schanz 14mm Thrd Body - [id number] Hemostat 2 X 14in 12-03-2016 Surgicel - [id number] Bone Infuse Bone 11-03-2016 Graft Sm - [id number] Bone Infuse Bone 05-25-2017 Graft Xsm - [id number] Cement Bone 12-24-2016 Radiopaque Simplex P Single Dose - [id number] Tube Sz8 Trach 08-26-2016 Cuffed - [id number] Tube 22fr Feeding 08-26-2016 Gastrostomy Junior - [id number] Screw 2.4 X 32mm Va 08-28-19 17 Lock Self-Tap Strdrv Rec - [id number] Screw 2.4 X 44mm Va 08-28-19 17 Lock Self-Tap Strdrv Rec - [id number] Screw 2.4 X 36mm 08-27-2016 Cortex Self-Tap T8 Strdrv Rec - [id number] Screw 2.4 X 38mm 08-27-2016 Cortex Self-Tap T8 Strdrv Rec - [id number] Wire K .045 X 5.5in 08-28-19 17 W/Wire Guide - [id number] Plate 2.4mm 2.7mm 08-27-2016 Va-Lock Mesh 5 X 12hls - [id number] Wire 15 X 150mm 08-27-2016 Compression Thrd - [id number] 1.6mm Compression 08-27-2016 Wires 20mm Thread Length, 1500mm Total Length Screw 2.4 X 18mm Moraima 017 Ang Lock Strdrv - [id number] Screw 2.4 X 20mm Moraima 017 Ang Lock Strdrv - [id number] Screw 2.4 X 22mm Moraima 017 Ang Lock Strdrv - [id number] Hemostat 8 X 12.5cm 11-04-19 17 X 10mm Surgifoam Gelatin Sponge - [id number] Screw 2.5 X 4mm Ti 7 Schanz 14mm Thrd Body - [id number] Hemostat 2 X 14in 12-03-2016 Surgicel - [id number] Hemostat 8 X 6.25cm 05-25-19 18 X 10mm Surgifoam Gelatin Sponge - [id number] Screw 2 X 10mm Cross 018 Pin Locking - [id number] Screw 2 X 14mm Cross 018 Pin Locking - [id number] Plate 11hl Str Recon 018 - [id number] Bone Infuse Bone 11-03-2016 Graft Sm - [id number] Bone Infuse Bone 05-25-2017 Graft Xsm - [id number] Bone Infuse Bone 05-12-2018 Graft Sm - [id number] Cement Bone 12-24-2016 Radiopaque Simplex P Single Dose - [id number] Tube Sz8 Trach 08-26-2016 Cuffed - [id number] Tube 22fr Feeding 08-26-2016 Gastrostomy Junior - [id number] Screw 2.4 X 32mm Va 08-28-19 17 Lock Self-Tap Strdrv Rec - [id number] Screw 2.4 X 44mm Va 08-28-19 17 Lock Self-Tap Strdrv Rec - [id number] Screw 2.4 X 36mm 08-27-2016 Cortex Self-Tap T8 Strdrv Rec - [id number] Screw 2.4 X 38mm 08-27-2016 Cortex Self-Tap T8 Strdrv Rec - [id number] Wire K .045 X 5.5in 08-28-19 17 W/Wire Guide - [id number] Plate 2.4mm 2.7mm 08-27-2016 Va-Lock Mesh 5 X 12hls - [id number] Wire 15 X 150mm 08-27-2016 Compression Thrd - [id number] 1.6mm Compression 08-27-2016 Wires 20mm Thread Length, 1500mm Total Length Screw 2.4 X 18mm Moraima 017 Ang Lock Strdrv - [id number] Screw 2.4 X 20mm Moraima 017 Ang Lock Strdrv - [id number] Screw 2.4 X 22mm Moraima 017 Ang Lock Strdrv - [id number] Hemostat 8 X 12.5cm 11-04-19 17 X 10mm Surgifoam Gelatin Sponge - [id number] Screw 2.5 X 4mm Ti 7 Schanz 14mm Thrd Body - [id number] Hemostat 2 X 14in 12-03-2016 Surgicel - [id number] Hemostat 8 X 6.25cm 05-25-19 18 X 10mm Surgifoam Gelatin Sponge - [id number] Plate 14hl Fracture 05-12-19 19 - [id number] Screw 2 X 14mm Cross 019 Pin Locking - [id number] Screw 2 X 10mm Cross 019 Pin Locking - [id number] Screw 2 X 8mm Cross 05-12-19 19 Pin Locking - [id number] Screw 2 X 16mm Cross 019 Pin Locking - [id number] Screw 2 X 10mm Cross 018 Pin Locking - [id number] Screw 2 X 14mm Cross 018 Pin Locking - [id number] Plate 11hl Str Recon 018 - [id number] Bone Infuse Bone 11-03-2016 Graft Sm - [id number] Bone Infuse Bone 05-25-2017 Graft Xsm - [id number] Bone Infuse Bone 05-12-2018 Graft Sm - [id number] Cement Bone 12-24-2016 Radiopaque Simplex P Single Dose - [id number] Tube Sz8 Trach 08-26-2016 Cuffed - [id number] Tube 22fr Feeding 08-26-2016 Gastrostomy Junior - [id number] Screw 2.4 X 32mm Va 08-28-19 17 Lock Self-Tap Strdrv Rec - [id number] Screw 2.4 X 44mm Va 08-28-19 17 Lock Self-Tap Strdrv Rec - [id number] Screw 2.4 X 36mm 08-27-2016 Cortex Self-Tap T8 Strdrv Rec - [id number] Screw 2.4 X 38mm 08-27-2016 Cortex Self-Tap T8 Strdrv Rec - [id number] Wire K .045 X 5.5in 08-28-19 17 W/Wire Guide - [id number] Plate 2.4mm 2.7mm 08-27-2016 Va-Lock Mesh 5 X 12hls - [id number] Wire 15 X 150mm 08-27-2016 Compression Thrd - [id number] 1.6mm Compression 08-27-2016 Wires 20mm Thread Length, 1500mm Total Length Screw 2.4 X 18mm Moraima 017 Ang Lock Strdrv - [id number] Screw 2.4 X 20mm Moraima 017 Ang Lock Strdrv - [id number] Screw 2.4 X 22mm Moraima 017 Ang Lock Strdrv - [id number] Hemostat 8 X 12.5cm 11-04-19 17 X 10mm Surgifoam Gelatin Sponge - [id number] Screw 2.5 X 4mm Ti 7 Schanz 14mm Thrd Body - [id number] Hemostat 2 X 14in 12-03-2016 Surgicel - [id number] Hemostat 8 X 6.25cm 05-25-19 18 X 10mm Surgifoam Gelatin Sponge - [id number] Plate 14hl Fracture 05-12-19 19 - [id number] Screw 2 X 14mm Cross 019 Pin Locking - [id number] Screw 2 X 10mm Cross 019 Pin Locking - [id number] Screw 2 X 8mm Cross 05-12-19 19 Pin Locking - [id number] Screw 2 X 16mm Cross 019 Pin Locking - [id number] Bone Infuse Bone 11-03-2016 Graft Sm - [id number] Bone Infuse Bone 05-25-2017 Graft Xsm - [id number] Bone Infuse Bone 05-12-2018 Graft Sm - [id number] Cement Bone 12-24-2016 Radiopaque Simplex P Single Dose - [id number] Tube Sz8 Trach 08-26-2016 Cuffed - [id number] Tube 22fr Feeding 08-26-2016 Gastrostomy Junior - [id number] Screw 2.4 X 32mm Va 08-28-19 17 Lock Self-Tap Strdrv Rec - [id number] Screw 2.4 X 44mm Va 08-28-19 17 Lock Self-Tap Strdrv Rec - [id number] Screw 2.4 X 36mm 08-27-2016 Cortex Self-Tap T8 Strdrv Rec - [id number] Screw 2.4 X 38mm 08-27-2016 Cortex Self-Tap T8 Strdrv Rec - [id number] Wire K .045 X 5.5in 08-28-19 17 W/Wire Guide - [id number] Plate 2.4mm 2.7mm 08-27-2016 Va-Lock Mesh 5 X 12hls - [id number] Wire 15 X 150mm 08-27-2016 Compression Thrd - [id number] 1.6mm Compression 08-27-2016 Wires 20mm Thread Length, 1500mm Total Length Screw 2.4 X 18mm Moraima 017 Ang Lock Strdrv - [id number] Screw 2.4 X 20mm Moraima 017 Ang Lock Strdrv - [id number] Screw 2.4 X 22mm Moraima 017 Ang Lock Strdrv - [id number] Hemostat 8 X 12.5cm 11-04-19 17 X 10mm Surgifoam Gelatin Sponge - [id number] Screw 2.5 X 4mm Ti 7 Schanz 14mm Thrd Body - [id number] Hemostat 2 X 14in 12-03-2016 Surgicel - [id number] Hemostat 8 X 6.25cm 05-25-19 18 X 10mm Surgifoam Gelatin Sponge - [id number] Screw 2.5 X 4mm Ti 9 Schanz 10mm Thrd Ramus - [id number] Screw 2.5 X 4mm Ti 9 Schanz 14mm Thrd Body - [id number] Plate 14hl Fracture 05-12-19 19 - [id number] Screw 2 X 14mm Cross 019 Pin Locking - [id number] Screw 2 X 10mm Cross 019 Pin Locking - [id number] Screw 2 X 8mm Cross 05-12-19 19 Pin Locking - [id number] Screw 2 X 16mm Cross 019 Pin Locking - [id number] Bone Infuse Bone 11-03-2016 Graft Sm - [id number] Bone Infuse Bone 05-25-2017 Graft Xsm - [id number] Bone Infuse Bone 05-12-2018 Graft Sm - [id number] Cement Bone 12-24-2016 Radiopaque Simplex P Single Dose - [id number] Tube Sz8 Trach 08-26-2016 Cuffed - [id number] Tube 22fr Feeding 08-26-2016 Gastrostomy Junior - [id number] Screw 2.4 X 32mm Va 08-28-19 17 Lock Self-Tap Strdrv Rec - [id number] Screw 2.4 X 44mm Va 08-28-19 17 Lock Self-Tap Strdrv Rec - [id number] Screw 2.4 X 36mm 08-27-2016 Cortex Self-Tap T8 Strdrv Rec - [id number] Screw 2.4 X 38mm 08-27-2016 Cortex Self-Tap T8 Strdrv Rec - [id number] Wire K .045 X 5.5in 08-28-19 17 W/Wire Guide - [id number] Plate 2.4mm 2.7mm 08-27-2016 Va-Lock Mesh 5 X 12hls - [id number] Wire 15 X 150mm 08-27-2016 Compression Thrd - [id number] 1.6mm Compression 08-27-2016 Wires 20mm Thread Length, 1500mm Total Length Screw 2.4 X 18mm Moraima 017 Ang Lock Strdrv - [id number] Screw 2.4 X 20mm Moraima 017 Ang Lock Strdrv - [id number] Screw 2.4 X 22mm Moraima 017 Ang Lock Strdrv -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 use alcohol or hydrogen peroxide to clean your wound -Do NOT put any ointments, lotions or powder on the wound unless you are told to do so by your doctor? Check the wound for signs of infection. Call your doctor or nurse if you have: - Skin around the wound is more red, swollen, or feels hot - Wound smells bad - Pus drainage - Temperature above 100.5 F ELMO-KIRKLAND DRAIN (or FLOYD drain) When you return home, do the following to help ensure a smooth recovery: -Empty drain at least twice a day or when full, keep a record of the amount of the drainage emptied and take the record to your follow up appointment. -Avoid bumping the drain -Sleep on the opposite side of the drain. This will help you avoid blocking the tubing or pulling itout of the suction bulb. -You can shower with your drain, do not submerge in a tub or soak in water. Call your doctor if any of the following occurs: -Drainage is greenish in color or has a bad smell -Significant bleeding from the drain -Pain at the incision -Fever or chills -End of the tube comes out of the incision -Removal of a drain depends on how fast you heal from surgery or injury. Your doctor may remove the drain when there is less than 1-2 tablespoons (15-30 milliliters) of drainage/fluid per day. If you have more than one drain, they may not necessarily be removed at the same time. in this encounterDischarge Instr - Care Coordination - KacieAra hall, DEE - 12/22/2016 12:[facility] at Continue current services. Infusion Services: [facility] Weekly CBC with diff, creatinine, vanco trough, ESR, CRP to Dr. Lainez at [phone]. Apply for Victims Compensation If you or your family members are innocent victims of a violent crime, financial assistance may be available. The following is a list of guidelines to help you determine whether you might be eligible for a payment. For specific questions, call the Track Broom Operator?s Office at [phone]. Applications and supplemental applications can be mailed to: [address] [place] [address], [address] [place] [address] Apply online: [email or web address] Crime Victims Compensation Guidelines Effective July 30, 2016: [place] Crime Victim Compensation Program Statutory Changes Who may be eligible to receive a payment: Victims injured as result of violent crime. Dependents of homicide victims. Claimants responsible for crime victims? expenses, such as parents or guardians. Who may not be eligible to receive a payment: Offenders or accomplices of offenders. Victims who have a felony conviction, or a child endangering or domestic violence conviction, hdtppa26 years prior to the crime or while the claim is pending; or anyone who engaged in a felony offenseof violence or felony drug trafficking, within 10 years prior to the crime or while the claim is pending; or anyone who, at the time of the crime, engaged in felony drug possession. Victims whose crimes are not reported to law enforcement. Victims who do not fully cooperate with law enforcement. Victims who committed criminal or tortious acts that contributed to their injuries. Payments can cover: Medical and related expenses. Counseling for immediate family members of victims of homicide, sexual assault, or domestic violence. Wages lost because of the crime. Crime scene cleanup for personal security, such as doors and windows. The cost to replace items taken as evidence. The cost to replace items of clothing damaged as a result of medical treatment or assessment. Payment for hearing aids, eyeglasses or other vision aids, dental appliances, teeth or other dental aids, canes, walkers, wheelchairs, and other mobility equipment. Lost wages and travel expenses for family members of a victim to attend court proceedings. Financial support for dependents of a victim. and burial expenses. The maximum total payments are limited to $50,000, and several expenses have caps. Payments cannot be made for pain and suffering or for stolen, damaged, or lost property. The Track Broom Operator?s Office will not pay victims for expenses that can be covered by any other available sources, such as insurance. Changes to the compensation program: An adult or minor victim can file anytime after the crime has occurred. The 72 hours reporting requirement has been removed. Victim must still report and cooperate with lawenforcement. The program now compensates for items of clothing damaged as a result of medical treatment or assessment. The program will also compensate for hearing aids, eyeglasses or other vision aids, dental appliances, teeth or other dental aids, canes, walkers, wheelchairs, and other mobility equipment. Clipper Machine Operator fees for civil protection orders' hourly rate for legal work went up from $60.00 per hour to $100.00. The maximum amount for real estate attorney fees per claim was changed to $1,000.00. Reasonable travel time to attend hearings is limited to 3 hours round trip for each hearing at $30.00 per hour. The cap on individual attorneys or law firms was eliminated. A supplemental application may be filed within six years of the last decision of the Track Broom Operator, an [place] Court of Claims panel commissioners, or a Court of Claims nail sticker.Ashleigh Hurd, SRINI - 12/28/2016Formatting of this note may be different from the original. Wound Care: Specify site left jaw ? Product(s) bacitracin / xeroform/ 4x4/ abd/ tape -You may shower. Do not allow the water stream to directly hit your incision(s). Do NOT take a tub bath, swim or get in a hot tub until the doctor okays it. -Before and after caring for your wound wash your hands with soap and warm water. -Gently clean the wound 1-2 times a day with cool water. Use mild soap to clean around the wound buttry not to get any soap on the wound edges. -Do NOT use alcohol or hydrogen peroxide to clean your wound -Do NOT put any ointments, lotions or powder on the wound unless you are told to do so by your doctor? Check the wound for signs of infection. Call your doctor or nurse if you have: - Skin around the wound is more red, swollen, or feels hot - Wound smells bad - Pus drainage - Temperature above 100.5 F Wound Care: ? Specify site left knee ? Product(s) saline soaked 1/4 nugauze/ 4x4/ kerlex/ gerald This type of dressing is used to remove drainage and tissue from your wound. If your wound is very deep or you have spaces that open under the skin or tunnel around your wound, you will need to put dressing into those spaces. This is called packing and it helps keep the space drained and allows it to heal from the inside out. Without the packing, the space may close off to form a pocket and not heal. Your dressing will need to be changed: every 12 hours and/or when it comes loose or gets dirty Remove your old dressing. If you had packing in place, be sure to remove all of the packing. Gently clean the wound with a washcloth, warm water and soap. You may also shower with the dressings off andallow mild soapy water to run over the wound. No scrubbing the wound and no baths. Rinse with water and pat dry with a clean towel. Check the wound for signs of infection. Call your doctor or nurse if you have: - Skin around the wound is more red, swollen, or feels hot - Wound smells bad - Pus drainage - Temperature above 100.5 F Wet the packing with saline. Squeeze out the dressing so they are not dripping wet. If you need to pack open spaces under your skin or tunneled spaces in your wound, use the wet gauze packing tape or open out the wet pads and loosely place the packing in the spaces. You may need to use a cotton swab to pack the small spaces. Place the wet gauze pad in the wound. Cover the wet gauze with the large pad. Tape the edges of the pad with paper tape to hold it in place. As your wound heals, you should not need as much packing. You will need to adjust how much packing or other gauze you wet for the dressing. ELMO-KIRKLAND DRAIN (or FLOYD drain) When you return home, do the following to help ensure a smooth recovery: -Empty drain at least twice a day or when full, keep a record of the amount of the drainage emptied and take the record to your follow up appointment. -Avoid bumping the drain -Sleep on the opposite side of the drain. This will help you avoid blocking the tubing or pulling itout of the suction bulb. -You can shower with your drain, do not submerge in a tub or soak in water. Call your doctor if any of the following occurs: -Drainage is greenish in color or has a bad smell -Significant bleeding from the drain -Pain at the incision -Fever or chills -End of the tube comes out of the incision -Removal of a drain depends on how fast you heal from surgery or injury. Your doctor may remove the drain when there is less than 1-2 tablespoons (15-30 milliliters) of drainage/fluid per day. If you have more than one drain, they may not necessarily be removed at the same time. KNEECAP FRACTURE HOME INSTRUCTIONS Status Post ORIF Left Patella 08/26/16 Continue with previous plan and follow up with Dr. Lugo as indicated below. Activity Weight Bearing Status: 1. Left lower extremity: You may weight bear as tolerated on your left leg/knee. Range of motion ofleft leg/knee. No restrictions of the left lower extremity. Medications & Managing your pain ? Take all medications as directed ? Take pain medicine before your pain becomes severe so you can have better pain relief. ? Do not drive, operate heavy machinery, ride motorcycles or [employer]'s, drink alcohol, or take other medications that make you tired or sleepy while you are taking narcotic pain medications ? Do not do any dangerous activities while taking pain medicines. They may decrease your ability to make safe decisions. ? Do not take pain medications on an empty stomach. This may lead to nausea and vomiting. PAIN MEDICINES OFTEN CAUSE CONSTIPATION. Unless contradicted by other medical issues, Try an over-the counter stool softener such as miralax or mag citrate, drink at least 6 - 8 glasses of water a day and eat high fiber foods such as fruits and vegetables. If you have done all of these things and still become constipated, or if any are contradicted by other medical conditions, talk to your doctor. Call 911 if: You have sudden chest pain and shortness of breath. Call your doctor if: You have increased or severe pain not relieved by your pain medication, rest, ice or elevation Your leg or foot is cool or pale or changes color. You have tingling, weakness, or numbness in your foot and toes. You cannot move your toes. You have signs of a blood clot, such as: Pain in your calf, back of the knee, thigh, or groin. Redness and swelling in your leg or groin. Your Ortho Trauma follow up appointment date & time Dr. Anuj Lugo February 07, 2017 at 11:30 am If you do not have a primary care physician please call [facility] Physician Referral Line [phone] for assistance. in this encounterDischarge Instr - Care Coordination - Piedad Phillips RN - 05/30/2017 1:46 PM ESTWeekly CBC with diff, creatinine, vanco trough, ESR, CRP to Dr. Lainez at [phone]. [facility] P:[phone] F:[phone] Vega CNP - 05/31/2017Wound Care: Change dressing to left jaw twice a day. Apply bacitracin ointment over incision, then cover with island dressing. -You may shower. Do not allow the water stream to directly hit your incision(s). Do NOT take a tub bath, swim or get in a hot tub until the doctor okays it. -Before and after caring for your wound wash your hands with soap and warm water. -Gently clean the wound 1-2 times a day with cool water. Use mild soap to clean around the wound buttry not to get any soap on the wound edges. -Do NOT use alcohol or hydrogen peroxide to clean your wound -Do NOT put any ointments, lotions or powder on the wound unless you are told to do so by your doctor? Check the wound for signs of infection. Call your doctor or nurse if you have: - Skin around the wound is more red, swollen, or feels hot - Wound smells bad - Pus drainage - Temperature above 100.5 F ELMO-KIRKLAND DRAIN (or FLOYD drain) When you return home, do the following to help ensure a smooth recovery: -Empty drain at least twice a day or when full, keep a record of the amount of the drainage emptied and take the record to your follow up appointment. -Avoid bumping the drain -Sleep on the opposite side of the drain. This will help you avoid blocking the tubing or pulling itout of the suction bulb. -You can shower with your drain, do not submerge in a tub or soak in water. Call your doctor if any of the following occurs: -Drainage is greenish in color or has a bad smell -Significant bleeding from the drain -Pain at the incision -Fever or chills -End of the tube comes out of the incision -Removal of a drain depends on how fast you heal from surgery or injury. Your doctor may remove the drain when there is less than 1-2 tablespoons (15-30 milliliters) of drainage/fluid per day. If you have more than one drain, they may not necessarily be removed at the same time. JAW FRACTURES: WHAT YOU SHOULD KNOW A mandible fracture is a break in your jawbone. It may take weeks or months for the jawbone to heal. Nutrition: If your jaw is wired, you will need to eat foods that have been blended with liquids. You will have to eat these foods through a syringe or straw. If your mouth is not wired, you may need to eat only soft foods. Some examples are applesauce, bananas, cooked cereal, cottage cheese, gelatin, pudding, and yogurt. Ask for more information about the type of foods you can eat. Self-care: ? Apply ice: Ice helps decrease swelling and pain. Ice may also help prevent tissue damage. Use an ice pack, or put crushed ice in a plastic bag. Cover it with a towel and place it on your face for 15 to 20 minutes every hour or as directed. ? Clean your mouth often: You will need to clean your mouth 4 to 6 times a day. Caregivers will showyou how to do this. Mouth cleaning will remove pieces of food and clean your teeth. A water pik or achild-sized soft toothbrush will work well to clean your mouth. ? Avoid putting pressure on your jaw: Do not push on your jaw or let anything push on it. Sleep on your back. Contact your primary healthcare provider if: ? You have a fever. ? You have a bad headache. ? You have numbness in your face. ? You have jaw pain that does not go away with medicine. ? The wires in your mouth are loose. Return to the emergency department if: ? You have trouble breathing. ? You suddenly feel lightheaded and short of breath. ? You have chest pain when you take a deep breath or cough. You may cough up blood. ? Your arm or leg feels warm, tender, and painful. It may look swollen and red. Keep your wire cutters with you at all times if your jaw is wired shut The following attachments cannot be sent through Care Everywhere.NAUSEA AND VOMITING: AFTER SURGERY (BURUNDIAN)POST-OP INFECTION (BURUNDIAN)SEDATION (BURUNDIAN) SURGERY: POST-OP BLEEDING (BURUNDIAN)PICC (PERIPHERALLY INSERTED CENTRAL CATHETER) (BURUNDIAN)in this encounterDischarge Instr - Care Coordination - Fransisco, Dimas García RN - 12/07/2016 10:51 AM EDTWeekly CBC with diff, creatinine, vanco trough, ESR, CRP to Dr. Lainez at [phone]. [facility] , fax [phone] Pt. Is staying with his mother [address]inna [address] [place] [address] UjgumcKellie Vega CNP - 12/07/2016Wound Care: Change dressing to neck once a day. Apply bacitracin ointment over skin graft, then cover with adaptic, 4x4 gauze. Right thigh donor site xeroform to stay in place and open to air until dry. You may sponge bathe only. No showers, soaking in tubs, swimming pools, or hot tubs. Check the wound for signs of infection. Call your doctor or nurse if you have: - Skin around the wound is more red, swollen, or feels hot - Wound smells bad - Pus drainage - Temperature above 100.5 F ELMO-KIRKLAND DRAIN (or FLOYD drain) When you return home, do the following to help ensure a smooth recovery: -Empty drain at least twice a day or when full, keep a record of the amount of the drainage emptied and take the record to your follow up appointment. -Avoid bumping the drain -Sleep on the opposite side of the drain. This will help you avoid blocking the tubing or pulling itout of the suction bulb. -You can shower with your drain, do not submerge in a tub or soak in water. Call your doctor if any of the following occurs: -Drainage is greenish in color or has a bad smell -Significant bleeding from the drain -Pain at the incision -Fever or chills -End of the tube comes out of the incision -Removal of a drain depends on how fast you heal from surgery or injury. Your doctor may remove the drain when there is less than 1-2 tablespoons (15-30 milliliters) of drainage/fluid per day. If you have more than one drain, they may not necessarily be removed at the same time. in this encounterDischarge Instr - Care Coordination - Jessenia Oliveira RN - 11/25/2016 12:11 PM EDTWeekly CBC with diff, creatinine, LFT, ESR, CRP to Dr. Lainez at [phone]. [facility] nurses Pt is going to stay w mother Corinna Prince [phone] [facility] [address]UixdbSavage Orozco DO - 11/25/2016Surgical Drain Care: Care Instructions What is a surgical drain? After a surgery, fluid may collect inside your body in the surgical area. This makes an infection orother problems more likely. A surgical drain allows the fluid to flow out. The doctor will put a thin rubber tube into the area of your body where the fluid is likely to collect. The rubber tube will carry the fluid outside your body. The most common type of surgical drain carries the fluid into a collection bulb that you empty. This is called a Elmo-Kirkland drain. The drain uses suction created by the bulb to pull the fluid from your body into the bulb. The rubber tube will probably be held in place by o3ne or two stitches in your skin. Most people attach the bulb with a safety pin to clothing or near the bandage so that it doesn't flip around or pullon the stitches. When you first get the drain, the fluid will be bloody. It will change color from red to pink to a light yellow or clear as the wound heals and the fluid starts to go away. Your doctor may give you specific information on when you no longer need the drain and when it will be removed. In general, you will need the drain until you are collecting less than about 2 tablespoons of fluid in 24 hours. Follow-up care is a packer part of your treatment and safety. Be sure to make and go to all appointments, and call your doctor if you are having problems. It's also a good idea to know your test results and keep a list of the medicines you take. How can you care for yourself at home? Fluid collection Follow any instructions your doctor gives you. How often you empty the bulb depends on how much fluid is draining. Empty the bulb when it is half full. To empty the bulb: ? Wash your hands with soap and water. ? Take the plug out of the bulb. ? Empty the bulb. If your doctor asks you to measure the fluid, empty the fluid into a measuring cup, and write down how much you collected. ? Clean the plug with alcohol. ? Squeeze the bulb until it is flat. This removes all the air from the bulb. You may need to put thebulb on a table or a counter to flatten it. ? Keep the bulb flat and put the plug in. ? The bulb should stay flat after you put the plug back in. This creates the suction that pulls the fluid into the bulb. ? Empty the fluid into the toilet. ? Wash your hands. Bandage care You may have a bandage. Your doctor will tell you how often to change it. ? Wash your hands with soap and water. ? Take off the bandage from around the drain. ? Clean the drain site and the skin around it with soap and water. Use gauze or a cotton swab. ? When the site is dry, put on a new bandage. Drain care Squeezing or milking the tube can help prevent clogs so that it drains correctly. Your doctor willtell you when you need to do this. In general, you do this when: ? You see a clot in the tube that is preventing fluid from draining. The clot may look like a dark, stringy lining. ? You see fluid leaking around the tube where it goes into the skin. ? You think there is no suction in the drain. To milk the tube: ? Use one hand to hold and pinch the tube where it leaves the skin. ? With the other hand, pinch the tube with your thumb and first finger just below where you're holding it. ? Slowly and firmly push your thumb and first finger down the tubing toward the bulb. ? Do this as many times as you need to. The clot should move down the tube and into the bulb. When should you call for help? Call your doctor now or seek immediate medical care if: ? You have signs of infection, such as: ? Increased pain, swelling, warmth, or redness around the area. ? Red streaks leading from the area. ? Pus draining from the area. ? A fever. ? You see a sudden change in the color or smell of the drainage. ? The tube is coming loose where it leaves your skin. Watch closely for changes in your health, and be sure to contact your doctor if: ? You see a lot of fluid around the drain. ? You cannot remove a clot from the tube by milking the tube. Where can you learn more? Log into your personal health record on [email or web address] and enter K117 in the Education box to learn more about Surgical Drain Care: Care Instructions. Current as of: September 19, 2015 Content Version: 11.2 ? 2862-1434 [employer]. Care instructions adapted under license by your healthcare professional. If you have questions about a medical condition or this instruction, always ask your healthcare professional. [employer] disclaims any warranty or liability for your use of this information. The following attachments cannot be sent through Care Everywhere.PICC (PERIPHERALLY INSERTED CENTRAL CATHETER) ([place])in this encounterDischarge Instr - Other OrdersRoxanne Chapin RN - 05/13/2018 2:43 PM ESTLast pain medication oxycodone given 05/13 at 204 pm. Next available dose of pain medication oxycodone 05/13 at 604 pm. Additional Francis Rush MD - 05/13/2018Plastic Surgery Instructions Diet: okay to continue regular diet Wound care Okay to shower starting tomorrow. Let soap/water run down incision, no rubbing/scrubbing. Pat dry Left facial incision: bacitracin ointment twice daily, cover with island dressing Left lower ext incision: cover with island dressing, change daily after shower FLOYD drain care: Strip and empty drain every 8 hours, record output Drain will be removed at clinic visit Antibiotics: please complete clindamycin x 5 days Pain Okay to use tylenol/ibuprofen per bottle instructions If pain unrelieved by tylenol/ibuprofen okay to use percocet Please call the office for appointment to be seen in clinic in this encounterInsKim Ruiz, [employer] E[employer] ANALYST - 05/26/2018 INJURIES: 1. Left?facial abscess 2. 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 If not, please contact the office at your earliest convenience to schedule your follow up appointment. Bring your medications and pill bottles with you to your first visit. Outpatient Trauma and Acute Care Surgery Office: [address] [facility] 7th Floor, [address] [place] [address] Hours: Tuesday-Tuesday, 8am to 4pm. If you need to speak with the trauma/surgery team after hours, please call and ask to speak with the Trauma Nurse Practitioner investigation division sergeant. Parking: You may park in the Green Garage, which is attached to the front of the hospital. From within the garage, take the C elevators up to the 7th Floor. The office is in [address]. Halver Machine Operator: If you choose carbon cutter parking, please do so at the Main Hospital entrance. Go up to the second floor. Follow signs for the [facility]. Snf across the bridge, take the elevators toyour right up to the 7th floor. You may also enter from the [facility] entrance, located at the corner of [facility]. You may also enter from the [facility] entrance, located at the corner of [facility]. Take the D elevators up to the 7th Floor. Use this entrance if you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
--- OUTSIDE RECORDS SUMMARY | 2020-02-10 11:31 | XMS RPT_ITS | CCD ---
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 Infuse 1,750 (one thousand seven hundred fifty) mg into a venous catheter every 12 (twelve) hours. 14 each 05/31/2017 07/05/2017 Active UNKNOWN Jessenia Ha [facility] ([id number]) Completed/Discontinuned Medications Medication Name Sig Date Prescriber Location acetaminophen acetaminophen (TYLENOL) 05-26-2018 - [facility] ([id number]) 650 mg/20.3 mL Soln Take 07-05-2018 20.3 mL (650 mg total) by mouth every 6 (six) hours . 240 mL 0 06/05/2018 07/05/2018 acetaminophen (TYLENOL) [facility][id number][facility] 650 mg 05-27-2018 acetaminophen (TYLENOL) 05-12-2018 - [facility] ([id number]) tablet 650 mg 05-13-2018 acetaminophen (TYLENOL) 06-14-2017 - [facility] ([id number]) 325 MG tablet 07-01-2017 Indications: Chronic osteomyelitis of facial bones (HCC) Take 1 (one) tablet (325 mg total) by mouth every 6 (six) hours as needed for pain. 30 tablet 0 06/21/2017 07/01/2017 Active acetaminophen (TYLENOL) 05-31-2017 - Francisco Lima [facility] ([id number]) 325 MG tablet Take 3 06-10-2017 [place] (three) tablets (975 mg total) by mouth every 8 (eight) hours for 10 days. 90 tablet 0 05/31/2017 06/10/2017 acetaminophen (TYLENOL) 05-31-2017 - Francisco Lima [facility] ([id number]) 650 mg/20.3 mL Soln Take 05-31-2017 [place] 30.45 mL (975 mg total) by mouth every 8 (eight) hours. 2740.5 mL 0 05/31/2017 05/31/2017 Discontinued acetaminophen (TYLENOL) 05-25-2017 - [facility] ([id number]) solution 975 mg 975 mg, 05-31-2017 Oral, Every 8 hours, First dose on Tue05/25/17 at 2000 Given 05/30/2017 20:12 EST 975 mg acetaminophen / oxyCODONE-acetaminophen 03-14-2017 - Mony Zimmerman oxyCODONE (PERCOCET) 7.5-325 mg per 03-22-2017 [facility] (4 [id number]) tablet Take 1 (one) tablet [place] to 2 (two) tablets by mouth every 4 (four) hours as needed for pain. 50 tablet 0 03/14/2017 03/22/2017 Discontinued oxyCODONE-acetaminophen 03-12-2017 - Ovi Pena [facility] ([id number]) (PERCOCET) 7.5-325 mg per tablet 03-14-2017 2 tablet 2 tablet, Oral, Every 4 hours PRN, moderate to severe pain, Starting 03/12/17 at 0815 Given 03/14/2017 04:39 EST 2 tablets oxyCODONE-acetaminophen 03-11-2017 - Luis Manuel Lee [facility] ([id number]) (PERCOCET) 5-325 mg per tablet 2 03-11-2017 [place] tablet 2 tablet, Oral, Once as needed, Pain, Starting 03/11/17 at 0916, For 1 dose, PACU (only), [] While in PACU when tolerating orals. [] Use oral route first, if tolerated. Given 03/11/2017 09:32 EST 2 tablets oxyCODONE-acetaminophen 02-22-2017 - Ashlie Chand [facility] ([id number]) (PERCOCET) 7.5-325 mg per tablet 03-14-2017 1 tablet 1 tablet, Oral, Every 6 hours PRN, moderate to severe pain, Starting 03/11/17 at 1105 Given 03/11/2017 13:37 EST 1 tablet oxyCODONE-acetaminophen 02-03-2017 - [facility] ([id number]) (PERCOCET) 5-325 mg per tablet 02-10-2017 Indications: Chronic osteomyelitis of facial bones (HCC) Take 1 (one) tablet by mouth every 6 (six) hours as needed for pain. 20 tablet 0 02/03/2017 02/10/2017 Active oxyCODONE-acetaminophen 01-04-2017 - [facility] ([id number]) (PERCOCET) 5-325 mg per tablet 01-14-2017 Indications: Chronic osteomyelitis of facial bones (HCC) Take 1 (one) tablet by mouth every 4 (four) hours as needed for pain. 28 tablet 0 01/04/2017 01/14/2017 Active oxyCODONE-acetaminophen 12-28-2016 - [facility] ([id number]) (PERCOCET) 5-325 mg per tablet 01-07-2017 Take 1 (one) tablet to 2 (two) tablets by mouth every 4 (four) hours as needed for pain. 65 tablet 0 12/28/2016 01/04/2017 Discontinued oxyCODONE-acetaminophen 12-21-2016 - [facility] ([id number]) (PERCOCET) 5-325 mg per tablet 2 12-28-2016 tablet 2 tablet, Oral, Every 4 hours PRN, moderate to severe pain, Starting Tu12/21/16 at 1544 Given 12/28/2016 04:10 EDT 2 tablets oxyCODONE-acetaminophen 12-07-2016 - [facility] ([id number]) (PERCOCET) 10-325 mg per tablet 12-28-2016 Take 1 (one) tablet to 2 (two) tablets by mouth every 4 (four) hours as needed for pain. 50 tablet 0 12/15/2016 12/25/2016 Suspended oxyCODONE-acetaminophen 12-01-2016 - Jorge Jamison [facility] ([id number]) (PERCOCET) 10-325 mg per tablet 12-01-2017 Indications: Open fracture of body of mandible with routine healing, unspecified laterality, subsequent encounter Take 1 (one) tablet by mouth every 4 (four) hours as needed for pain. 42 tablet 0 12/01/2016 12/08/2016 Discontinued oxyCODONE-acetaminophen 11-25-2016 - [facility] ([id number]) (PERCOCET) 5-325 mg per tablet 12-07-2016 Take 1 (one) tablet by mouth every 6 (six) hours as needed for pain Ran out 10 tablet 0 11/27/2016 12/07/2016 Suspended oxyCODONE-acetaminophen 11-22-2016 - Jose De Jesus White [facility] ([id number]) (PERCOCET) 5-325 mg per tablet 2 11-25-2016 tablet 2 tablet, Oral, Every 4 hours PRN, moderate to severe pain, Starting 11/22/16 at 1525 oxyCODONE-acetaminophen 11-11-2016 - Carolee Hunt [facility] ([id number]) (PERCOCET) 5-325 mg per tablet 11-25-2016 [place] Indications: 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 80 tablet 0 11/11/2016 11/25/2016 Discontinued adhesive bandage adhesive bandage 04-07-2017 - Mily Pollard [facility] ([place] 05-25-2017 ([id number]) DRESSING) 4 X 6 DRESSING) 4 X 6 Bndg Bndg Apply 1 Package topically 2 (two) times a day To the left mandible. 30 each 5 04/07/2017 05/25/2017 Discontinued adhesive bandage ([place] DRESSING) 04-07-2017 [facility] ([id number]) 4 X 6 Bndg Apply 1 Package topically 2 (two) times a day To the left mandible. 30 each 04/07/2017 Active adhesive bandage ([place] DRESSING) 04-07-2017 [facility] ([id number]) 4 X 6 Bndg Apply 1 Package topically 2 (two) times a day To the left mandible. 30 each 04/07/2017 Active adhesive bandage ([place] DRESSING) 04-07-2017 [facility] ([id number]) 4 X 6 Bndg Apply 1 Package topically 2 (two) times a day To the left mandible. 30 each 5 04/07/2017 Active adhesive bandage ([place] DRESS[place]) 04-07-2017 [facility] ([id number]) 4 X 6 Bndg Apply 1 Package topically 2 (two) times a day To the left mandible. 30 each 5 04/07/2017 Active adhesive bandage ([place] DRESSING) 04-07-2017 [facility] ([id number]) 4 X 6 Bndg Apply 1 Package topically 2 (two) times a day To the left mandible. 30 each 5 04/07/2017 Active adhesive bandage ([place] DRESS[place]) 04-07-2017 [facility] ([id number]) 4 X 6 Bndg Apply 1 Package topically 2 (two) times a day To the left mandible. 30 each 5 04/07/2017 Active adhesive bandage ([place] DRESSING) 04-07-2017 - 04-07-2017 [facility] ([id number]) 4 X 6 Bndg Apply 1 Package topically 2 (two) times a day To the left mandible. 30 each 04/07/2017 04/07/2017 Discontinued Albuterol 2 puff, Inhalation, Every 6 05-22-2018 - 05-27-2018 [facility] ([id number]) hours PRN, wheezing, Starting Tue05/22/18 at 0254 2 puff, Inhalation, Every 05-12-2018 - 06-05-2018 Jose De Jesus White [facility] ([id number]) 6 hours PRN, wheezing, Starting Tue05/12/18 at 1327 albuterol 90 mcg/actuation Jessenia Sahni [facility] ([id number]) inhaler Inhale 2 puffs every 6 (six) hours as needed for wheezing . Active Amoxicillin / amoxicillin-clavulanate 05-26-2018 - Tahira Ini [facility] Clavulanate (AUGMENTIN) 875-125 mg per 05-27-2018 [place] ( [id number]) tablet 1 tablet amoxicillin-clavulanate 05-26-2018 - Brittney Coles [facility] ([id number]) (AUGMENTIN) 875-125 mg per 07-21-2018 [place] tablet Take 1 (one) tablet by mouth 2 (two) times a day . 112 tablet 0 05/26/2018 07/21/2018 ampicillin-sulbactam ampicillin-sulbactam 05-24-2018 - Tahira Hayden [facility] (UNASYN) 3000 mg in (UNASYN) 3000 mg in 05-26-2018 ( [id number]) sodium chloride (NS) sodium chloride (NS) 0.9% 100 mL MBP 0.9% 100 mL MBP calcium chloride / lactated Ringers 05-26-2018 - Kim Avery [facility] ealt lactate / potassium infusion 05-27-2018 [place] ([id number]) chloride / sodium chloride lactated Ringers infusion 05-21-2018 - 05-24-2018 [facility] ([id number]) lactated Ringers infusion 05-12-2018 - 05-13-2018 [facility] ([id number]) lactated Ringers infusion 05-25-2017 - 05-31-2017 [facility] ([id number]) 25 mL/hr, Intravenous, Continuous, Starting Tue05/25/17 at 1045, KVO Restarted 05/26/2017 10:45 EST 25 mL/hr 25 mL/hr lactated Ringers infusion 03-11-2017 - 03-14-2017 Rob Brown ms [facility] ([id number]) 25 mL/hr, Intravenous, Continuous, Starting Tue03/11/17 at 0630 New Bag 03/11/2017 07:27 EST 25 mL/hr 25 mL/hr lactated Ringers infusion 12-22-2016 - 12-22-2016 [facility] ([id number]) 50 mL/hr, Intravenous, Continuous, Starting Tue12/22/16 at 1730, For 2 hours New Bag 12/22/2016 16:50 EDT 50 mL/hr 50 mL/hr lactated Ringers infusion 12-03-2016 - 12-08-2016 [facility] ([id number]) 25 mL/hr, Intravenous, Continuous, Starting Tue12/03/16 at 0730 New Bag 12/03/2016 07:31 EDT 25 mL/hr 25 mL/hr lactated Ringers infusion 11-22-2016 - 11-25-2016 [facility] ([id number]) 25 mL/hr, Intravenous, Continuous, Starting Tue11/22/16 at 1130, KVO ceFAZolin ceFAZolin (ANCEF) 12-03-2016 - Watson Lerma [facility] IVPB 2 g (premix) 12-05-2016 ([id number]) 2,000 mg, Intravenous, at 200 mL/hr, Daily, First dose on Tue12/03/16 at 1400, Indication: Other (specify) Rate/Dose Verify 12/04/2016 08:18 EDT 200 mL/hr cefTRIAXone cefTRIAXone 12-02-2016 - [facility] (ROCEPHIN) 2000 (ROCEPHIN) 2000 mg 12-03-2016 ([id number] ) mg in sodium in sodium chloride [...] mL/hr cefTRIAXone cefTRIAXone 11-25-2016 - Kim Carrion [facility] h (ROCEPHIN) 2000 (ROCEPHIN) 2000 mg 11-25-2016 ([id number] ) mg in sodium in sodium chloride [...] 2,000 cefTRIAXone 2,000 11-25-2016 - Jorge [facility] mg in sodium mg in sodium 12-08-2016 ([id number]) chloride 0.9 % chloride 0.9 % 0.9 0.9 % 50 mL IVPB % 50 mL IVPB Infuse 2,000 (two thousand) mg into a venous catheter daily. 7 each 5 11/25/2016 12/08/2016 Discontinued cefTRIAXone 2,000 mg in 11-25-2016 - Jorge Jamison [facility] ([id number]) sodium chloride 0.9 % 0.9 12-08-2016 % 50 mL IVPB Infuse 2,000 (two thousand) mg into a venous catheter daily. 7 each 5 11/25/2016 12/08/2016 Discontinued cefTRIAXone 2,000 mg in 11-25-2016 - Sridhar [facility] ([id number]) sodium chloride 0.9 % 0.9 01-03-2017 [place] % 50 mL IVPB Infuse 2,000 (two thousand) mg into a venous catheter daily. 7 each 11/25/2016 01/03/2017 Suspended cefTRIAXone 2,000 mg in 11-25-2016 - Sridhar [facility] ([id number]) sodium chloride 0.9 % 0.9 01-03-2017 [place] % 50 mL IVPB Infuse 2,000 (two thousand) mg into a venous catheter daily. 7 each 11/25/2016 01/03/2017 Active chlorhexidine chlorhexidine 05-22-2018 - Carroll Dennys [facility] ([id number]) (PERIDEX) 0.12 % 05-26-2018 solution 15 mL chlorhexidine (PERIDEX) 05-25-2017 - Kellie [facility] ([id number]) 0.12 % solution 15 mL by 06-14-2017 Other route 4 (four) times a day for 14 days. 120 mL 1 05/31/2017 06/14/2017 chlorhexidine (PERIDEX) 03-18-2017 - Andre Cline [facility] ([id number]) 0.12 % solution 15 mL. 05-31-2017 03/18/2017 05/31/2017 Discontinued chlorhexidine (PERIDEX) 12-02-2016 - [facility] ([id number]) 0.12 % solution 15 mL 15 03-14-2017 mL, Swab, 2 times daily, First dose on [place] 12/02/16 at 1200 Given 12/07/2016 08:22 EDT 15 mL chlorhexidine (PERIDEX) 11-22-2016 - Jose De Jesus White [facility] ([id number]) 0.12 % solution 15 mL 15 11-25-2016 mL, Swab, 2 times daily, First dose on 11/22/16 at 2100 chlorhexidine (PERIDEX) 11-05-2016 [facility] ([id number][facility] 0.12 % solution Apply 15 11-19-2016 mL to the mouth or throat 2 (two) times a day for 14 days. 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 14 tablet 0 11/11/2016 11/18/2016 clindamycin clindamycin (CLEOCIN) 05-13-2018 - Jazmyne Ray [facility] ([id number]) 300 MG capsule Take 1 05-27-2018 (one) capsule (300 mg total) by mouth 3 (three) times a day for 5 days . 15 capsule 0 05/18/2018 05/27/2018 Discontinued clindamycin (CLEOCIN) 05-12-2018 - Melina Fried [facility] ([id number]) IVPB 600 mg (premix) 05-13-2018 clindamycin (CLEOCIN) 300 01-04-2017 - [facility] ([id number]) MG capsule Indications: 02-03-2017 Chronic osteomyelitis of facial bones (HCC) Take 1 (one) capsule (300 mg total) by mouth 3 (three) times a day. 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 30 capsule 0 11/11/2016 11/25/2016 Discontinued clindamycin (CLEOCIN) 300 Mily Latrice [facility] ([id number]) MG capsule Take 300 mg by mouth 3 (three) times a day. Suspended docusate / 1 tablet, Oral, 2 times 05-13-2018 - [facility] ([id number]) sennosides, halfway daily, First dose on Tue05-28-2018 05/22/18 at 0900 Hold for loose stools Do Not Crush or Chew if administering orally due to bitter taste. May be crushed if given via tube. senna-docusate (SENNA-S) 05-12-2018 - [facility] ([id number]) 8.6-50 mg per tablet 1 05-13-2018 tablet senna-docusate (SENNA-S) 12-07-2016 - Erlinda Long [facility] ([id number]) 8.6-50 mg Take 1 (one) 12-28-2016 tablet by mouth 2 (two) times a day for 15 days. 30 tablet 0 12/07/2016 12/28/2016 Discontinued senna-docusate (SENNA-S) 12-02-2016 - [facility] ([id number]) 8.6-50 mg per tablet 1 12-08-2016 tablet 1 tablet, Oral, 2 times daily, First dose on [place] 12/02/16 at 1200, NOT for abdominal surgery patients. Hold for loose stools. Do Not Crush or Chew if administering orally due to bitter taste. May be crushed if given via tube. Given 12/07/2016 08:21 EDT 1 tablet doxycycline doxycycline hyclate 02-22-2017 - [facility] ([id number]) (VIBRA-TABS) 100 MG 03-14-2017 tablet Indications: Chronic osteomyelitis of facial bones (HCC) Take 1 (one) tablet (100 mg total) by mouth 2 (two) times a day. 14 tablet 0 02/22/2017 03/14/2017 Discontinued doxycycline hyclate (VIBRA-TABS) 100 MG tablet 02-03-2017 [facility] ([id number]) Indications: Chronic osteomyelitis of facial bones (HCC) Take 1 (one) tablet (100 mg total) by mouth 2 (two) times a day. 14 tablet 0 02/03/2017 Active enoxaparin enoxaparin 05-22-2018 - Peyton Andrea [facility] ([id number]) (LOVENOX) syringe 05-27-2018 [place] 30 mg 40 mg, Subcutaneous, 05-12-2018 - 05-13-2018 Jose De Jesus [facility] ([id number]) Daily, First dose on Tue05/12/18 at 2000 Administer in abdomen unless otherwise directed by prescriber. Notify physician if patient refuses. enoxaparin (LOVENOX) 12-21-2016 - 12-28-2016 [facility] ([id number]) syringe 40 mg 40 mg, Subcutaneous, Daily, First dose on Tue12/21/16 at 2000, Administer in abdomen unless otherwise directed by prescriber. Notify physician if patient refuses. Given 12/25/2016 19:50 EDT 40 mg Abdominal Tissue enoxaparin (LOVENOX) 12-03-2016 - 12-08-2016 Pat Thomas [facility] ([id number]) syringe 40 mg 40 mg, Subcutaneous, Daily, First dose on Tue12/03/16 at 1215, Administer in abdomen unless otherwise directed by prescriber. Notify physician if patient refuses. Given 12/06/2016 08:04 EDT 40 mg enoxaparin (LOVENOX) 11-22-2016 - 11-25-2016 Jose De Jesus [facility] ([id number]) syringe 40 mg 40 mg, Subcutaneous, Daily, First dose on Tue11/22/16 at 1615, Administer in abdomen unless otherwise directed by prescriber. Notify physician if patient refuses. Famotidine famotidine (PEPCID) 05-26-2018 - Carroll Noyola [facility] ([id number]) tablet 40 mg 05-27-2018 famotidine (PEPCID) injection 05-23-2018 - 05-26-2018 Carroll Gold [facility] ([id number]) 20 mg 20 mg, Oral, Daily, First 05-13-2018 - 05-13-2018 Jose De Jesus White [facility] ([id number]) dose on 05/13/18 at 0900 fentaNYL fentaNYL 05-22-2018 - Eve Rock [facility] (SUBLIMAZE) bolus (SUBLIMAZE) bolus 05-25-2018 ([id number]) from bag 50-100 from bag 50-100 mcg mcg fentaNYL fentaNYL 05-22-2018 - Debra Swanson [facility] (SUBLIMAZE) (SUBLIMAZE) 05-25-2018 [place] ([id number]) infusion 2,500 infusion 2,500 mcg/250 mL in NS mcg/250 mL in NS FLUoxetine 20 mg, Oral, 05-22-2018 - [facility] Daily, First dose 05-27-2018 ([id number]) on 05/22/18 at 0900 20 mg, Oral, Daily, First 05-13-2018 - 05-13-2018 Jose De Jesus White [facility] ([id number]) dose on 05/13/18 at 0900 FLUoxetine (PROZAC) 20 MG [facility] ([id number]) capsule Take 40 mg by mouth daily . 0 Active fluoxetine HCl (PROZAC 05-21-2018 Jazmyne Ray [facility] ([id number]) ORAL) Take by mouth daily with breakfast . 0 05/21/2018 Discontinued fluoxetine HCl (PROZAC Jessenia Sahni [facility] ([id number]) ORAL) Take by mouth daily with breakfast . 0 Active fluoxetine HCl (PROZAC Jessneia Bartholow [facility] ([id number]) ORAL) Take by mouth daily with breakfast . 0 Active fluoxetine HCl (PROZAC Jessenia Bartholow [facility] ([id number]) ORAL) Take by mouth daily with breakfast . Active Glucose / Sodium dextrose 5 % and 05-24-2018 - [facility] Chloride sodium chloride 0.45 05-25-2018 ([id number]) % infusion Glycopyrrolate glycopyrrolate 05-22-2018 - Juan Carlos Octavio [facility] (ROBINUL) injection 05-22-2018 ([id number]) 0.2 mg HYDROmorphone HYDROmorphone 05-25-2017 - Ana Harris [facility] (DILAUDID) injection 05-25-2017 ([id number]) 0.25 mg 0.25 mg, Intravenous, Every 5 min PRN, moderate to severe pain, Starting Tue05/25/17 at 1335, For 8 doses, PACU (only), [] Give if fentanyl not effective or not ordered. [] Do not give more than 2.0 mg total. Given 05/25/2017 14:15 EST 0.25 mg HYDROmorphone (DILAUDID) 03-11-2017 - Luis Manuel [facility]is [facility] ([id number]) 1 mg/mL injection 0.5 mg 03-11-2017 0.5 mg, Intravenous, Every 10 min PRN, Pain, Starting 03/11/17 at 0916, For 6 doses, PACU (only), [] Give if fentanyl not effective or not ordered. [] Do not give more than 3 mg total. Given 03/11/2017 09:32 EST 0.5 mg HYDROmorphone (DILAUDID) 12-24-2016 - Yolanda [facility] ([id number]) 1 mg/mL injection 0.25 mg 12-24-2016 0.25 mg, Intravenous, Every 5 min PRN, moderate to severe pain, max of 1.5mg, Starting Tue12/24/16 at 1203, For 6 doses, PACU (only) Given 12/24/2016 12:13 EDT 0.25 mg HYDROmorphone (DILAUDID) 12-22-2016 - Phil Aultman [facility] ([id number]) 1 mg/mL injection 0.5 mg 12-22-2016 0.5 mg, Intravenous, Every 10 min PRN, moderate to severe pain, Starting 12/22/16 at 1651, For 6 doses, PACU (only), [] Give if fentanyl not effective or not ordered. [] Do not give more than 3 mg total. Given 12/22/2016 17:42 EDT 0.5 mg HYDROmorphone (DILAUDID) 12-07-2016 - [facility] ([id number]) 1 mg/mL injection 0.5 mg 12-08-2016 0.5 mg, Intravenous, Every 4 hours PRN, moderate to severe pain, Starting Tu12/07/16 at 1015 Given 12/07/2016 14:44 EDT 0.5 mg HYDROmorphone (DILAUDID) 12-06-2016 - [facility] ([id number]) 1 mg/mL injection 0.75 mg 12-07-2016 0.75 mg, Intravenous, Every 3 hours PRN, moderate to severe pain, Starting Tue12/06/16 at 1044 Given 12/06/2016 23:22 EDT 0.75 mg HYDROmorphone (DILAUDID) 12-03-2016 - [facility] ([id number]) 1 mg/mL injection 1 mg 1 12-06-2016 mg, Intravenous, Every 2 hour PRN, moderate to severe pain, Starting Tue12/03/16 at 1121 Given 12/05/2016 20:53 EDT 1 mg HYDROmorphone (DILAUDID) 12-03-2016 - [facility] ([id number]) 1 mg/mL injection 0.5 mg 12-03-2016 0.5 mg, Intravenous, Every 10 min PRN, Pain, Starting Tue12/03/16 at 0946, For 6 doses, PACU (only), [] Give if fentanyl not effective or not ordered. [] Do not give more than 3 mg total. Given 12/03/2016 10:12 EDT 0.5 mg HYDROmorphone (DILAUDID) 11-22-2016 - [facility] ([id number]) 1 mg/mL injection 0.5 mg 11-22-2016 0.5 mg, Intravenous, Every 5 min PRN, moderate to severe pain, Starting Tue11/22/16 at 1400, For 6 doses, PACU (only), [] Give if fentanyl not effective or not ordered. [] Do not give more than 3 mg total. HYDROmorphone 0.25 mg, 05-12-2018 - Suzie Pabon [facility] (DILAUDID) 0.5 mg/mL Intravenous, Every 5 05-12-2018 [place] ([id number]) injection 0.25 mg min PRN, moderate to severe pain, Starting Tue05/12/18 at 1025, For 6 doses, PACU (only) [] Do not give more than 1.5 mg total. HYDROmorphone HYDROmorphone 05-24-2018 - [facility] (DILAUDID) 0.5 mg/mL (DILAUDID) 0.5 mg/mL 05-26-2018 ([id number]) injection 0.5 mg injection 0.5 mg HYDROmorphone (DILAUDID) 05-22-2018 - oYlanda Lopez [facility] ([id number]) 0.5 mg/mL injection 0.5 05-22-2018 mg HYDROmorphone (DILAUDID) 05-21-2018 - Julio Cesar Brewer [facility] ([id number]) 0.5 mg/mL injection 0.5 05-21-2018 Jorje mg HYDROmorphone (DILAUDID) 05-21-2018 - [facility] ([id number]) 0.5 mg/mL injection 0.5 05-21-2018 mg hypochlorite sodium hypochlorite 12-22-2016 - Quique Mccallum [facility] ([facility] 12-24-2016 [place] ([id number]) (HALF-STRENGTH)) 0.25 % external solution Topical, 2 [...] tube. ibuprofen (ADVIL,MOTRIN) 03-18-2017 - Jazmyne Ray [facility] lt ([id number]) 600 MG tablet Take 600 mg 05-27-2018 by mouth every 8 (eight) hours as needed . 0 03/18/2017 05/27/2018 Discontinued ibuprofen (ADVIL,MOTRIN) 03-18-2017 Jessenia Sahni [facility] lth ([id number]) 600 MG tablet Take 600 mg by mouth every 6 (six) hours as needed . 0 03/18/2017 Active ibuprofen (ADVIL,MOTRIN) 03-11-2017 - [facility] (53149) tablet 600 mg 600 mg, Oral, 03-14-2017 Every 8 hours PRN, mild pain, Starting 03/11/17 at 1105, Give with Food Do Not Crush or Chew if administering orally due to bitter taste. May be crushed if given via tube. Given 03/11/2017 18:45 EST 600 mg ibuprofen (ADVIL,MOTRIN) 12-07-2016 - [facility] lt ([id number]) 600 MG tablet Take 1 (one) 01-11-2017 tablet (600 mg total) by mouth every 6 (six) hours for 14 days. 56 tablet 0 12/28/2016 01/11/2017 Active ibuprofen (ADVIL,MOTRIN) 12-06-2016 - Ovi Chuckdwaine [facility] (66107) tablet 600 mg 600 mg, Oral, 12-08-2016 Every 6 hours, First dose on Tue12/06/16 at 1200, Give with Food Do Not Crush or Chew if administering orally due to bitter taste. May be crushed if given via tube. Given 12/07/2016 23:41 EDT 600 mg ibuprofen (ADVIL,MOTRIN) 12-02-2016 - [facility] (60320) tablet 200 mg 200 mg, Oral, 12-06-2016 Every 6 hours PRN, fever 100.4 F or greater, headaches, mild pain, Starting Daphney 12/02/16 at 1111, Give with Food Do Not Crush or Chew if administering orally due to bitter taste. May be crushed if given via tube. Given 12/02/2016 13:19 EDT 200 mg ibuprofen (ADVIL,MOTRIN) 12-08-2016 Jorge Swift [facility] (00962) 200 MG tablet Take 200 mg by mouth every 6 (six) hours as needed for pain. 12/08/2016 Discontinued iopamidol iopamidol 11-10-2017 - Duyen Marie [facility] ( 00846) (ISOVUE-370) 76 % 11-10-2017 Ben injection 75 mL iopamidol (ISOVUE-370) 76 % 05-27-2017 - 05-27-2017July Pepper Ann rs [facility] (76042) injection 75 mL 75 mL, Intravenous, Once in imaging, contrast, Starting 05/27/17 at 0726, For 1 dose Contrast Administered 05/27/2017 08:56 EST 75 mL iopamidol (ISOVUE-370) 76 % 02-03-2017 - 02-03-2017 Jazmyne Oseguera in [facility] ([id number]) injection 75 mL 75 mL, Intravenous, Once in imaging, contrast, Starting Daphney 02/03/17 at 1120, For 1 dose Contrast Administered 02/03/2017 11:20 EDT 60 mL ketorolac ketorolac (TORADOL) 11-23-2016 - Ana Harris [facility] ([id number]) injection 30 mg 30 11-25-2016 mg, Intravenous, Every 6 hours, First dose on Tue11/23/16 at 1200, For 48 hours, Give with Food Labetalol 5 mg, Intravenous, 05-12-2018 - Suzie Rosario [facility] (30074) Every 5 min PRN, SBP 05-12-2018 greater than 160 or DBP greater than 90, Starting 05/12/18 at 1025, For 4 doses, PACU (only) [] Do not give more than 20 mg total. [] Hold for HR less than 50. lidocaine lidocaine (XYLOCAINE) 05-22-2018 - Ethan Cox [facility] (30590) 4 % (40 mg/mL) 05-22-2018 external solution lidocaine 1% (XYLOCAINE) 10 05-25-2017 - 05-25-2017 Christian Powell [facility] (02106) mg/mL (1 %) injection 0.2 mL 0.2 mL, Intradermal, Once, 05/25/17 at 1045, For 1 dose, Pre-Procedure, Around site prior to IV insertion. Given 05/25/2017 10:12 EST 0.2 mL lidocaine HCl (LIDOPIN) 3 % 05-27-2018 [facility] (94071) Crea Apply 1 application topically . 0 05/27/2018 Discontinued morphine 4 mg, Intravenous, 05-12-2018 - Jose De Jesus White [facility] (17422) Every 2 hour PRN, 05-13-2018 moderate to severe pain, Starting 05/12/18 at 1327 morphine 4 mg 4 mg, 05-28-2017 - Nishant Maradiaga [facility] ([id number]) Intravenous, Every 10 min 05-28-2017 PRN, Pain, Starting 05/28/17 at 0905, For 5 doses, PACU (only), [] Give if fentanyl not effective or not ordered. [] Do not give more than 20 mg total. Given 05/28/2017 09:12 EST 4 mg morphine 4 mg 4 mg, 03-11-2017 - [facility] ( 35145) Intravenous, Every 2 hour 03-14-2017 PRN, moderate to severe pain, Starting 03/11/17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 q0GfcCWrOLptO55hh 541HNIxmtRzE4vcjN FpblxwbGFpblxmMFx mczIwXHFsXHBsYWlu XGYwXGZzMjBccGxha Q4oPuBeUyJtGBxuDR 6zKLWiH7kwmLQbZSN cIRMxT2ufDbGhjK8c aFxmMVxjZjFcZnMyM FxsdHJjaCBSZWNlaX KvOPNshjKim5SaBLm pbiBsYWJlbGVkICJc dNfdiW4nJcLlQsZaP YmdHG0jNPYcL8ighG OfRESwECCrY8zqYsH cvL6qdZikQUcdRzPc AkQgBJirce64FEZ3e 1xmaWVsZHtcKlxmbG AhptB4CYiPPZBZMYv HCdIhQL9vTIbKVbkG RUdJTnwzODAwMXwwf SUQGAdCV3x4FRRWKK 6oYLpsHjf8LA13GYE bBLHzjOIrGQajW325 XHBsYWluXGYxXGZzM jBcbGFuZzEwMzNcaG ljaFxmMVxkYmNoXGY hTMjkB6gwBqUeZ3Ml XGZzMjBccHJvdGVjd AHNYTphq2SwBTZrmS bjS5mauFHvhcixRRk mczIwXGxhbmcxMDMz SJiaK1jhXhJaFSWpf JigYNntj9EqWLGmZL EqTWwobdAtYQAqp8B hX6N6HSKhJJdjk0qj LEReBTqbm9BeVGoZG PRPQQ4XTW4nvER8ZY pWM9SMKWloEAWlCPy wrCMNNVpHQ3m5QOGN QF1fODqmRnd0DJ63F GZsZHJzbHQgXCcxY3 19XHBsYWluXGYxXGZ zMjBcbGFuZzEwMzNc aGljaFxmMVxkYmNoX ELzYRtzC1nbOrAxD5 ZaCZKvGqInjRDnE7t gIiBhbmQgZGVzaWdu YXRlZCAiXHBsYWluX SChJULtQrBalZ9zvD agdUaihS1bYiGqLzW uNNznLN3wBYOzZ1zi lVUbCCOnLIMhA0dhW aJsyG9snVdmHPegNk FcZnMyMFxsdHJjaCA iXHBsYWluXGYyXGZz YiPnOLWmHJGnc14vu TV1tvMaSyLqIUPuAS K9HDYfEML9GZGjUPN aePCvvvXbF2CtUMTx rF1fEBXkzVrptCDsx oCtIZF3eICmvOufYq VbW10mpoYwJKVigaW liLdss7ppDpAwJFNk rvQzLCJhv4TvLrEcQ PrwBBYeu2EfPYyvIX K6Me4bcFXaENDgc0Q aL1Mqd9BdWOxviWmi PONha87pj83pmT9yB HBhclxwYXIgVlMvS0 ipE578WOyuGCIawWA rTVdwy8KwGEJ9JK1h siX3aU7zWYBociHug w2vETAbpYtaVli8CI DcqWAxAB1okSrqWIu dgYEUp0BetAOixIQm GCK0FyFtC6iropPkt yf3SFLwauSwUTOhPT BdV77anG3zlMTfOY0 LCYHvDgV7KxjjXXH1 Anion gap molar conc 19 10 - 20 mmol/L 9 [facility] (31387) Calcium mass conc 8.1 8.4 - mg/dL Low 05-24-2018 [facility] (56994) Chloride molar conc 109 98 - 108 mmol/L High 05-24-2018 [facility] (23746) Creatinine mass conc 1.74 0.5 - 1.3 mg/dL High 9 [facility] (35246) GFR/1.73 sq M The eGFR should 05-24-2018 [facility] predicted among be used for (4 2133) non-blacks MDRD vol monitoring renal rate/area (S/P/Bld) function only and not for medication dosing. GFR/1.73 sq 48 >=60 Low 05-24-2018 [facility] M.predicted CKD-EPI mL/min/1. (25273) vol rate/area 73 m2 (S/P/Bld) Glucose mass conc 74 65 - 99 mg/dL 05-24-2018 [facility] (13774) HCO3 molar conc 19 21 - 32 mmol/L Low 05-24-2018 [facility] (18635) Interpretation and Abnormal 05-24-2018 [facility] review of laboratory (12974) results Potassium molar conc 4.5 3.5 - 5.1 mmol/L 9 [facility] (15741) Sodium molar conc 142 135 - 145 mmol/L 05-24-2018 [facility] (56937[facility] Urea nitrogen mass 18 8 - 25 mg/dL 05-24-2018 [facility] conc (55284) Urea 10.3 OTH - OTH mg/mg 05-24-2018 [facility] h nitrogen/Creatinine (17028) mass ratio Vancomycin mass conc 22.2 mcg/mL 9 [facility] (32860) No established 05-24-2018 [facility] reference range. (43 215) No panel information on 2018-05-23 Vancomycin mass conc 34.4 mcg/mL 9 [facility] (85441) No established 05-23-2018 [facility] reference range. (43 215) Glucose mass conc 88 65 - 99 mg/dL 05-23-2018 [facility] (62989) Interpretation and Normal 05-23-2018 [facility] review of laboratory (90235) results Case Report Surgical Pathology Report Case: [id number] 05-23-2018 [facility] Authorizing Provider: Felix De Leon MD Collected: 05/22/2018 10:00 AM ([id number]) Ordering Location: [facility] Received: 05/22/2018 10:30 AM Periop Pathologist: Luis Manuel Flores MD Specimen: Bone, Please Specify, left jaw bone Pathology report [id number] 2018 [facility] final diagnosis BxKyDPCfJBYpi5ek (48296) Narrative ZGVmbGFuZzEwMzNc ZnRuYmpcdWMxXGRl HdVtw6srm513iAFj n5bwUPCzPiR2qLIg RKIpfDDfM212CJGn GImxr7yob5SxIEJx dDCnd4X0EYTJhygt pXw8kNfjY85ea5D9 VtyhH6ujHESeKRwz ZWVuMFxibHVlMCA7 YJEuVAJ8ITclheHl ccU0XBpvcRKrZzB6 SFx9w2rdmCtuRFBf ZBP2j1fjRDhlxgCz IL3bvz0jgGv4j4db czEgRGVmYXVsdCBQ JBZxI5UbrWzwSn4o iFb0fBedTvhaIDU1 Ryi2DJ4gzk52qxd5 fVxwYXBlcncxMjI0 MFxwYXBlcmgxNTg0 MFxtYXJnbDcyMFxt YXJncjcyMFxtYXJn xHC5DQHxtSSoM0We NDQwXGhlYWRlcnk3 GqZmOy9meONyzLWk na2mzb36PNG4y3Bn rCsmKQL8JGE2QpGx Ue4smWNrEKLoFE2m SqDnvYZpMHTctp11 tYxvVUrdtgDduR2m YmRiXGZldDRcYWVu JA4gbJOxKBZbyO1b cmxjXHBnYnJkcmhl KCIzxScohrDiFu4l qCziPGY3OQxvH6jo sT0gLvS0GOilF4gg oC1xYVb4ROubfBQ7 POYopL7iIQ4wrkmt s0rzEnFsUS0cxcpw r0wkNnQfPP4zzxf3 x9psIJZ4PHreAWId AwB5ixU1ZELqpPNx WEDjxCzoQPdun594 BCH4RHdeWgmkRNkr XHBnbmNvbnRccGdu ZGVjXHBsYWluXHBs YWluXGYwXGZzMjBc lRjfqEolmM6cPhMm ZnMyMFxwbGFpblxm MVxmczIyXGxhbmcx VWVrYDosM1guMjUt XQAqbJecXEtfy6Ar XGYxXGNmMVxmczIy XGJccGFyIExlZnQg syQ2EKQrkiFzCSTy RpQjQDTqEU30Dlvp YXJccGFyXGxpNzIw XHBsYWluXGYwXGZz AaYuvFuuoQ8aClIx NfBrHllyXT4hVREo Z4lakBEbNMXqBCQs P1piOuZiwY3zqDzw MVxjZjFcZnMyMlxi MLEpqZHbLR8jiUWl xBfbfRa3uGNxTJZv aypaxWSqvNgddN5l ZjBcZnMyMFxwbGFp blxmMVxmczIyXGxh hammSUMaRXrhE4gx ZjFcZGJjaFxmMVxs c1TmQQRyDYVvRYef czIyXGJccGFyXHBs YWluXGYxXGZzMTZc bGFuZzEwMzNcaGlj aFxmMVxkYmNoXGYx EFsqJ1dbRgVnR0Wo OMTpHHNmZdWWP114 r4pijEZbpidvFHir czIyXGxhbmcxMDMz POtrG5itMkEzJOYh jOvlFFvuk4NwADMw XGNmMVxmczIyXGJc cGFyXHBhclxwbGFp blxmMFxmczIwXHBh cn0= Pathology report f0eaaNOqZZQykMFo 2018 [facility] gross observation IuSeDCVpQTHex0xd ([id number]) Narrative ZGVmbGFuZzEwMzNc ZnRuYmpcdWMxXGRl ZeRwv1yol995vBCi n7vqCTMxVgH0hKWx XKFdcPMaG800OTYh XOudnh8qBO5uWPVn nQWep9D0MRCMwemu qPu9i7snAaMmJhF4 aREbLGusA9etvpRf cRKjATPmKCv8kQ62 VPEnbI4dyDWlXCcf cmVkMFxncmVlbjBc Rzo5CKYhE9cxWSIn YPDhQ7JvNY9xZTSv Mga3VPY0HYZ4MJZt ZDIyMVxncmVlbjI0 EGzetEPqPtR1VLj8 e9jtaPseWQCcBMY0 p9enZZuvksAwGM2y ii3llHj7j2bjgnIs RGVmYXVsdCBQYXJh R3ExjKtmUu2haCj2 rHwwAuetAGD4Ioe0 AN4mis95cib1cAeo FOYcxbqtVuZ1AKum QXAafnacRPo4FNww YXJnbDcyMFxtYXJn cjcyMFxtYXJndDE0 GIHzzLRhJ9JaKROg MQziUCGtzzd0EkFt Rt6ziEBgnWHiay6e ki09NJD1a2JyiJzp YTR2VHW7AiDtIk0c qJDyEQVvZG5pBoYa hXPwQUTxzl55ePea IEkvouJbnD1zQfUh XGZldDRcYWVuZGRv V2mwEtOsgeYjM3np R5BcZLNiATMcJNQd TeVjwwBeg4Rtd5Ob dUKqwSa1x0zeJGPo QLLjiWdjj4xkWSU6 QKMmC4M8kJEjf7tc EBbiUWQwxNW9jmbj HMuuTOFrbxD5dhka PYdzMNAlkCR6coK3 QCEiuPTuC0AsgR9q NDQwXGhlYWRlcnk3 RhByLj7rxEYcnZUl a1NgfDFfVWckJ40c h070QGDrmqWdT1bl bGFpblxwbGFpblxm MFxmczIwXHFsXHBs YWluXGYwXGZzMjBc gNcslC7fTzHeOqUz LZhpWZ9dUURsD3yp qLQfATTfRUOaQ2gw DgWveQ9afKxdIHuh ZjFcZnMyMFxsdHJj aCBSZWNlaXZlZCBp ubJst4HiNMwrtxLa YWJlbGVkICJccGxh tS7hDjRtMvQuCKzy PK2iJKDlD1xdrGWj OZIiRAInU5kfWfEu oF3yiVkxJMmlOtSq DhMiYFngho75KYQ5 m2cvgVSrJMsnMgxs tHSfhzQ1LOjRIRLZ KZdQCfXtIG9jSPdK TktCRUdJTnwzODAw WWoykBIYMEuZW7s0 WQRPGC9qOCcuIax1 XL10KBOnNZVfdZQh ODefP125WRMlDDme XGYxXGZzMjBcbGFu ZzEwMzNcaGljaFxm MVxkYmNoXGYxXGxv Q7buVvJlL1NrSTUm MjBccHJvdGVjdCBU SQcdm8CtZXIpdWki Y7ftgEDjyyhnOElw czIwXGxhbmcxMDMz EUegP5nxYwRcLKRk zPhdDYnwy8AiAVRy XGNmMVxmczIwXHBy g1HbL8S6HDQhHCrz g3olLPJwPXskz5Ez QNsGHZGDQE2ACP8y dKK9SMcRA4BKRVep ODAwMXwwfERCTElO W6h3GQLVRY2aXYqm Wkh9NB03ODKwKUSh vNRgHQkeV557OSJg YWluXGYxXGZzMjBc bGFuZzEwMzNcaGlj aFxmMVxkYmNoXGYx XMzmF9ujTkIaW8Sy QALvOcAyqPVwY7nd IiBhbmQgZGVzaWdu YXRlZCAiXHBsYWlu XGYyXGZzMjAgbGVm iJThWTvjhOmaiL7n QrPtRbEhMWtdNM9l NXGoA5puaCBpGEJd PPRrF2gkCvOetI7o aFxmMVxjZjFcZnMy MFxsdHJjaCAiXHBs YWluXGYyXGZzMjAg SFhpUHOfwvNvI2Na PBYombBxl26ol2Bd Vk3mIRxeOz8cDVpb CI31KUmqJW88QRSh LiAgVGhlIHNwZWNp dCFzZVuvXEMin5Nu dGVkLiAgQWxsIDIv NK4iAYOdE9EeI7mm aWVkLlxwYXJccGFy OBeNRu2CRYxyGCAa IFxwYXJccGFyIEdy d1ArSHV8NM2quxL4 wF6rZSRjorUwoe6k AWIpkRixLjo5RLLg uYDyYI4vuDwkVQla sPOFu8EhlGFepBXw RQP8EyPiL6soddAr svs3SGPjycScOBVa VLFlX88kxV8dmXCp AD8CEJQdSbX6QNYd cn0= Pathology report x7aoyUYkQSNtnWHz 2018 [facility] microscopic PsSbMKJaAFZuy3bf ( 22986) observation ZGVmbGFuZzEwMzNc Narrative Other ZnRuYmpcdWMxXGRl stain VzRux6sqp954tLFq b5qrKFXyZhV5aCVu EFPwyDMnK257RZAw ZBnrz0wwd1BbGPBh fXQjs5K3RVQPxtoy zUv0mQyjE79uv0G7 FtovJ5btVEYkXCYp M7KhIB9lURNhYcx0 AYD2CGC8UFWmIARe E0UnTS7fWVMnnOUb BJf0w5tgaIyxBGJe BFY1u2ziYSexrhLz SJ8tar6rvSf2t9wq czEgRGVmYXVsdCBQ NZPsE5AjmSepPq0n bVh6hNxhLtmhSTG1 Odg1GX4vmj32wba3 fVxwYXBlcncxMjI0 MFxwYXBlcmgxNTg0 KYoqYXDpfLG7HCYi gGMsL3CyRSGqQW2k yki4NUZ3QPxhFESm FzO6QXMkhRWdILNs nPpbCYodf332OQJ7 MbCrST0bP8Jai0O9 xR0wmEEdZZFdhVEj JrJbRQDxif2dgQRo WMqpg5MiGAZ6jyM6 iOScmYQdGCEvIA26 Fwiar1PbLlmlHHG3 UKDkcaHij5Gyc5oq XsDdcdOrS2rxI4Yc ZHJoZWFkXHBnYnJk keHdu3Unw2RzfEZl yLj2b9teTTSpRTIi mPlaq5suXPF2IASs V8O3iIFho5lpHCnq JEHqeLJ4mqD6ANRj jTPhE0EgwX4eDGWm AS9dibe4k5uaVBI9 DXiiCQEySzN5wuO8 NDBcaGVhZGVyeTcy PDllr527JMD5FmLj PBVhr7YdW0IlyIzg R75cxImiP22pGNGi lUdtsZ6bnEfkjK4z ZjBcZnMyNFxxbFxw bGFpblxmMVxmczIw XGxhbmcxMDMzXGhp N3tmRlIpTCQicHxw PKots0WoYDKfPHWh TvIeFSzvtp7eT26p aWMgZXhhbWluYXRp y46cmOZdfVHuOk9p bWVkLlxwYXJ9 Erythrocyte 13.9 11.6 - 14.8 % 05-23-2018 [facility] ealth distribution width ( 61482) Entitic volume (RBC) Hematocrit Volume 26.5 41 - 53 % Low 05-23-2018 [facility] Fraction (Bld) (4321 5) Hemoglobin mass conc 8.6 13.5 - 17.5 g/dL Low 019 [facility] (Bld) (01977) Interpretation and Abnormal 05-23-2018 [facility] review of laboratory (48676) results MCH Entitic mass 28.9 26 - 34 pg 05-23-2018 [facility] (RBC) (10165) MCHC mass conc (RBC) 32.5 31 - 37 g/dL 9 [facility] (40314) MCV Entitic volume 88.9 80 - 100 fL 05-23-2018 [facility] (RBC) (19443) Nucleated RBC #/vol 0.00 OTH - OTH 10*3/uL 05-23-2018 [facility] (Bld) (37614) Nucleated RBC/100 0.0 % 05-23-2018 [facility] WBC Ratio (Bld) (432 15) Platelet mean volume 10.6 9 - 15.5 fL 9 [facility] Entitic volume (Bld) (81769) Platelets #/vol 419 OTH - OTH 10*3/uL High 05-23-2018 [facility] (Bld) (83972) RBC #/vol (Bld) 2.98 OTH - OTH 10*6/uL Low 05-23-2018 [facility] (22569) WBC #/vol (Bld) 8.47 OTH - OTH 10*3/uL 05-23-2018 [facility] (03823) Anion gap molar conc 17 10 - 20 mmol/L 9 [facility] (16129) Calcium mass conc 8.3 8.4 - 10.2 mg/dL Low 05-23-2018 [facility] (70837) Chloride molar conc 106 98 - 108 mmol/L 05-23-2018 [facility] (09446) Creatinine mass conc 1.65 0.5 - 1.3 mg/dL High 9 [facility] (48567) GFR/1.73 sq M The eGFR should 05-23-2018 [facility] predicted among be used for (4 9346) non-blacks MDRD vol monitoring renal rate/area (S/P/Bld) function only and not for medication dosing. GFR/1.73 sq 52 >=60 Low 05-23-2018 [facility] lth M.predicted CKD-EPI mL/min/1.73 (20140) vol rate/area m2 (S/P/Bld) Glucose mass conc 79 65 - 99 mg/dL 05-23-2018 [facility] (91312) HCO3 molar conc 20 21 - 32 mmol/L Low 05-23-2018 [facility] (45568) Interpretation and Abnormal 05-23-2018 [facility] review of laboratory (23686) results Potassium molar conc 4.4 3.5 - 5.1 mmol/L 9 [facility] (97011) Sodium molar conc 139 135 - 145 mmol/L 05-23-2018 [facility] (29134) Urea nitrogen mass 21 8 - 25 mg/dL 05-23-2018 [facility] conc (06175) Urea 12.7 OTH - OTH mg/mg 05-23-2018 [facility] h nitrogen/Creatinine (21560) mass ratio Base excess -1.6 OTH - OTH mmol/L 05-23-2018 [facility] Calculated molar (43 215) conc (Bld) Calcium.ionized mass 4.5 4.5 - 5.3 mg/dL 9 [facility] conc (56390) Carboxyhemoglobin/He 1.0 OTH - OTH 9 [facility] moglobin.total mass (08567) fraction (BldA) Comment: Reference Ranges: [facility] Non-smokers:<1.5% Smokers:1.5-5.0% Heavy Smokers:5.0-9.0% CO2 ppres (Bld) 37.7 OTH - OTH mm[Hg] 05-23-2018 [facility] (24355) Glucose mass conc 79 65 - 99 mg/dL 05-23-2018 [facility] (01327) HCO3 molar conc (Bld) 22.5 22 - 26 mmol/L 05-23-19 19 [facility] (70215) Hematocrit Volume 26.3 41 - 53 % Low 05-23-2018 [facility] Fraction (BldA) (432 15) Hemoglobin mass conc 8.5 13.5 - 18 g/dL Low 9 [facility] (Bld) (24045) Inhaled oxygen 30 %/L 05-23-2018 [facility] concentration (12366 ) Interpretation and Abnormal 05-23-2018 [facility] review of laboratory (90696) results Lactate molar conc 0.6 0.6 - 2 mmol/L 05-23-2018 [facility] (11054) Methemoglobin/Hemoglo 0.6 0 - 2 % 05-23-19 19 [facility] bin.total mass (4321 5) fraction (BldA) Oxygen ppres (Bld) 131 OTH - OTH mm[Hg] High 05-23-2018 [facility] (39509) Oxyhemoglobin/Hemoglo 97.1 94 - 98 % 05-23-19 19 [facility] bin.total mass (4321 5) fraction (BldA) PEEP Respiratory 5 05-23-2018 [facility] (66097) pH (Bld) 7.39 OTH - OTH [pH] [facility] Potassium molar conc 3.7 3.5 - 5.1 mmol/L 9 [facility] (15247) SaO2% mass fraction 98.7 92 - 99 % 05-23-2018 [facility] (BldA) (13603) Sodium molar conc 134 135 - 145 mmol/L Low 05-23-2018 [facility] (22293) Tidal volume setting 430 9 [facility] Ventilator (43419) Type of Oxygen Ventilator 05-23-2018 [facility] saturation device (4 4795) ABO and Rh group Nom O Positive 05-23-19 [facility] (Bld) (43318) Blood group antibody Negative 9 [facility] screen Ql (85595) Specimen Expires 05/26/2018 23:59 2018 [facility] EST (53833) Anion gap molar conc 15 10 - 20 mmol/L 9 [facility] (50972) Calcium mass conc 8.3 8.4 - mg/dL Low 05-23-2018 [facility] 10.2 (57447) Chloride molar conc 102 98 - 108 mmol/L 05-23-2018 [facility] (96238) Creatinine mass conc 1.63 0.5 - 1.3 mg/dL High 9 [facility] (30031) GFR/1.73 sq M The eGFR should 05-23-2018 [facility] predicted among be used for (4 5677) non-blacks MDRD vol monitoring renal rate/area (S/P/Bld) function only and not for medication dosing. GFR/1.73 sq 52 >=60 Low 05-23-2018 [facility] M.predicted CKD-EPI mL/min/1. (39291) vol rate/area 73 m2 (S/P/Bld) Glucose mass conc 77 65 - 99 mg/dL 05-23-2018 [facility] (77060) HCO3 molar conc 21 21 - 32 mmol/L 05-23-2018 [facility] (68904) Interpretation and Abnormal 05-23-2018 [facility] review of laboratory (08397) results Potassium molar conc 4.1 3.5 - 5.1 mmol/L 9 [facility] (65292) Sodium molar conc 134 135 - 145 mmol/L Low 05-23-2018 [facility] (99635) Urea nitrogen mass 21 8 - 25 mg/dL 05-23-2018 [facility] conc (03559) Urea 12.9 OTH - OTH mg/mg 05-23-2018 [facility] h nitrogen/Creatinine (24822) mass ratio Glucose mass conc 83 65 - 99 mg/dL 05-23-2018 [facility] (77707) Interpretation and Normal 05-23-2018 [facility] review of laboratory (22306) results xr chest pa/ap on 2 XR CHEST PA/AP EXAMINATION: Normal 05-22-2018 [facility] SINGLE XRAY VIEW OF THE CHEST Center (99097) 05/22/2018 1:17 pm COMPARISON: Chest radiograph 03/11/2017. [...] SUPINE XRAY VIEW(S) OF THE ABDOMEN Center (66767) VIEW 05/22/2018 1:17 pm COMPARISON: [facility] 08/26/2016. [...] tube in the gastric body and 05-22-2018 [facility] (05394) side port in the gastric fundus. Non-specific bowel gas pattern without evidence of obstruction. Workstation ID: [id number] EXAMINATION: SINGLE SUPINE XRAY VIEW(S) OF THE 05-22-2018 [facility] (90530) ABDOMEN 05/22/2018 1:17 pm COMPARISON: [facility] 08/26/2016. HISTORY: ORDERING SYSTEM PROVIDED HISTORY: ngt [...] 05/22/2018 3:51 PM EST EX AMINATION: 05-22-2018 [facility] (81495) SINGLE SUPINE XRAY VIEW(S) OF THE ABDOMEN 05/22/2018 1:17 pm COMPARISON: [facility] 08/26/2016. HISTORY: ORDERING SYSTEM PROVIDED HISTORY: ngt [...] Endotracheal tube approximately 2 cm above 05-22-2018 [facility] (90115) the jerardo. 2. No acute process. Workstation ID: [id number] EXAMINATION: SINGLE XRAY VIEW OF THE CHEST 05-22-2018 [facility] (96886) 05/22/2018 1:17 pm COMPARISON: Chest radiograph 03/11/2017. HISTORY: ORDERING SYSTEM PROVIDED HISTORY: VENT; TECHNOLOGIST PROVIDED HISTORY: Reason for Exam: VENT Illness/Other Acuity: Unknown Surgery, Radiation History: unk Type of Encounter: Ongoing Additional signs and symptoms: unk ORDERING SYSTEM PROVIDED DIAGNOSIS CODES: L02.91 Abscess FINDINGS: The endotracheal tube terminates approximately 2 cm above the jeradro. The tip of the enteric tube is below the diaphragm but not included in the field of view. The side port is in the gastric fundus. The cardiomediastinal silhouette is within normal limits. Shallow inspiration. No pneumothorax, vascular congestion, consolidation, or pleural effusion is identified. No acute osseous abnormality. Interface, Rad In Fuji Speechq - 05/22/2018 3:50 PM EST EX AMINATION: 05-22-2018 [facility] ([id number]) SINGLE XRAY VIEW OF THE CHEST 05/22/2018 [...] AM EST This order has been 05-22-2018 [facility] (43566) auto-finalized and does not contain a result. This order has been auto-finalized and does not contain a result. 05-22-2018 [facility] (08072) No panel information on 2018-05-21 Basophils #/vol (Bld) 0.05 OTH - OTH 10*3/uL 05-21-19 19 [facility] ([id number]) Basophils/100 WBC (Bld) 0.3 % 2018 [facility] (62527) Eosinophils #/vol (Bld) 0.08 OTH - OTH 10*3/uL 2018 [facility] (68681) Eosinophils/100 WBC (Bld) 0.5 % 04-26 [facility] (90470) Erythrocyte distribution 13.7 11.6 - 14.8 % [facility] (86631) width Entitic volume (RBC) Hematocrit Volume Fraction 33.6 41 - 53 % Low [facility] (66670) (Bld) Hemoglobin mass conc (Bld) 11.1 13.5 - 17.5 g/dL Low 0 05-21-2018 [facility] (54261) Immature granulocytes 0.13 OTH - OTH 10*3/uL 05-21-19 19 [facility] (89343) #/vol (Bld) Immature granulocytes/100 0.70 % 04-26 [facility] (63640) WBC (Bld) Comment: The IG parameter is the perc entage of metamyelocytes, myelocytes, and promyelocytes. Interpretation and Abnormal 05-21-2018 [facility] review of (48130) laboratory results Lymphocytes #/vol 2.13 OTH - OTH 10*3/ 05-21-2018 [facility] (Bld) uL (98826) Lymphocytes/100 12.1 % 05-21-2018 [facility] WBC (Bld) (73899) MCH Entitic mass 28.9 26 - 34 pg 05-21-2018 [facility] (RBC) (74469) MCHC mass conc 33.0 31 - 37 g/dL 05-21-2018 [facility] (RBC) (23758) MCV Entitic volume 87.5 80 - 100 fL 05-21-2018 [facility] (RBC) (45835) Monocytes #/vol 2.17 OTH - OTH 10*3/ High 05-21-2018 [facility] (Bld) uL (62932) Monocytes/100 WBC 12.4 % 05-21-2018 [facility] (Bld) (95847) Neutrophils #/vol 13.00 OTH - OTH 10*3/ High 05-21-2018 [facility] (Bld) uL (37772) Neutrophils/100 74.0 % 05-21-2018 [facility] WBC (Bld) (21427) Nucleated RBC 0.00 [facility] 10*3/ 05-21-2018 [facility] eah #/vol (Bld) uL (17124) Nucleated RBC/100 0.0 % 05-21-2018 [facility] WBC Ratio (Bld) (432 15) Ovalocytes LM Ql Rare 05-21-2018 [facility] (Bld) (28946) Platelet mean 9.5 9 - 15.5 fL 05-21-2018 [facility] volume Entitic (4321 5) volume (Bld) Platelets #/vol 524 OT - OT 10*3/ High 05-21-2018 [facility] (Bld) uL (30760) Platelets LM Ql Increased Normal Abnormal 05-21-2018 [facility] (Bld) (25599) Polychromasia LM Rare 05-21-2018 [facility] Ql (Bld) (34707) RBC #/vol (Bld) 3.84 OT - [facility] 10*6/ Low 05-21-2018 [facility] uL (01357) WBC #/vol (Bld) 17.56 OT - [facility] 10*3/ High 05-21-2018 [facility] uL (95757) INR Coag RelTime 1.1 [facility] {INR} 05-21-2018 [facility] (PPP) (71200) Interpretation and Normal 05-21-2018 [facility] review of (44850) laboratory results Prothrombin time 14.1 [facility] s 05-21-2018 [facility] (PT) Coag time (4321 5) (PPP) During the 05-21-2018 [facility] induction phase of ( 97122) oral anticoagulation, the INR may not reflect the anticoagulation status of the patient. Therapeutic ranges for INR's are: Most clinical situations: INR 2.0-3.0 Mechanical Prosthetic Valve: INR 2.5-3.5 Critical: INR >5.0 Anion gap molar 18 10 - 20 mmol/ 05-21-2018 [facility] conc L (30347) Calcium mass conc 9.3 8.4 - 10.2 mg/dL 05-21-2018 [facility] (99623) Chloride molar 98 98 - 108 mmol/ 05-21-2018 [facility] conc L (57150) Creatinine mass 0.74 0.5 - 1.3 mg/dL 05-21-2018 [facility] conc (29636) GFR/1.73 sq M The eGFR should be 019 [facility] predicted among used for monitoring (30543) non-blacks MDRD renal function only vol rate/area and not for (S/P/Bld) medication dosing. GFR/1.73 sq 116 >=60 05-21-2018 [facility] lth M.predicted mL/min/1.7 (06687) CKD-EPI vol 3 m2 rate/area (S/P/Bld) Glucose mass conc 98 65 - 99 mg/dL 05-21-2018 [facility] (23785) HCO3 molar conc 23 21 - 32 mmol/ 05-21-2018 [facility] L (08164) Interpretation and Normal 05-21-2018 [facility] review of (51413) laboratory results Potassium molar 4.0 3.5 - 5.1 mmol/ 05-21-2018 [facility] conc L (98521) Sodium molar conc 135 135 - 145 mmol/ 05-21-2018 [facility] L (22830) Urea nitrogen mass 9 8 - 25 mg/dL 05-21-2018 [facility] conc (29453) Urea 12.2 OTH - OTH mg/mg 05-21-2018 [facility] h nitrogen/Creatinin ( 20530) e mass ratio xr fluoroscopy time on 2018-05-12 XR FLUOROSCOPY TIME This is an auto finalized re sult. Please refer to patient chart for Normal 05-12-2018 [facility] further information. Center (08669) further information. further information. Comment: Order Comment: Reason for ex am?:intra op Injury/Trauma or Illness?:Il lness/Other How long have you had these symptoms (acute/chronic)?:Unknown Type of Exam?:Unknown Additional signs and symptom s?:intra op Fluoro time in minutes:1.17 Fluoro dose in mGy?:10.66 xr femur left 2+ views (standard) on 2018-05-12 XR FEMUR LEFT 2+ EXAMINATION: Normal 05-12-2018 [facility] VIEWS (STANDARD) TWO XRAY VIEWS OF THE LEFT FEMUR Center ([id number]) 05/12/2018 10:47 am COMPARISON: 03/28/2018 HISTORY: ORDERING [...] on 2018-05-12 EXAMINATION: TWO XRAY 05-12-19 19 [facility] VIEWS OF THE LEFT FEMUR (80609) 05/12/2018 10:47 am COMPARISON: 03/28/2018 HISTORY: ORDERING [...] 05/12/2018 12:10 PM EST E XAMINATION: 05-12-2018 [facility] TWO XRAY VIEWS OF THE LEFT FEMUR ([id number]) 05/12/2018 10:47 am COMPARISON: 03/28/2018 HISTORY: ORDERING [...] ID: [id number] 1. No acute osseous 05-12-2018 [facility] abnormality of the left (62164) femur. 2. Postsurgical skin josé in place. Workstation ID: [id number] Erythrocyte 14.6 11.6 - % 05-12-2018 [facility] lt distribution width 14.8 ( 24269) Entitic volume (RBC) Hematocrit Volume 39.5 41 - 53 % Low 05-12-2018 [facility] Fraction (Bld) (4321 5) Hemoglobin mass 13.0 13.5 - g/dL Low 05-12-2018 [facility] conc (Bld) 17.5 (88138) Interpretation and Abnormal 05-12-2018 [facility] review of (44284) laboratory results MCH Entitic mass 29.7 26 - 34 pg 05-12-2018 [facility] (RBC) (43027) MCHC mass conc 32.9 31 - 37 g/dL 05-12-2018 [facility] (RBC) (46572) MCV Entitic volume 90.2 80 - fL 05-12-2018 [facility] (RBC) 100 (49687) Nucleated RBC 0.00 OTH - 10*3/u 05-12-2018 [facility] ealth #/vol (Bld) OTH L (72013) Nucleated RBC/100 0.0 % 05-12-2018 [facility] WBC Ratio (Bld) (432 15) Platelet mean 10.6 9 - fL 05-12-2018 [facility] ealth volume Entitic 15.5 (4321 5) volume (Bld) Platelets #/vol 243 OTH - 10*3/u 05-12-2018 [facility] (Bld) OTH L (34357) RBC #/vol (Bld) 4.38 OTH - 10*6/u Low 05-12-2018 [facility] OTH L (22437) WBC #/vol (Bld) 16.17 OTH - 10*3/u High 05-12-2018 [facility] OTH L (62209) Anion gap molar 18 10 - 20 mmol/L 05-12-2018 [facility] conc (93955) Chloride molar 103 98 - mmol/L 05-12-2018 [facility] conc 108 (37363) Creatinine mass 0.85 0.5 - mg/dL 05-12-2018 [facility] conc 1.3 (75569) GFR/1.73 sq M The eGFR should be used [facility] predicted among for monitoring renal (27913) non-blacks MDRD function only and not vol rate/area for medication dosing. (S/P/Bld) GFR/1.73 sq 110 >=60 05-12-2018 [facility] lth M.predicted mL/min/ (09277) CKD-EPI vol 1.73 m2 rate/area (S/P/Bld) Glucose mass conc 95 65 - 99 mg/dL 05-12-2018 [facility] (59831) HCO3 molar conc 25 21 - 32 mmol/L 05-12-2018 [facility] (61533) Interpretation and Normal 05-12-2018 [facility] review of (05297) laboratory results Potassium molar 5.1 3.5 - mmol/L 05-12-2018 [facility] conc 5.1 (42098) Sodium molar conc 141 135 - mmol/L 05-12-2018 [facility] 145 (40889) Urea nitrogen mass 15 8 - 25 mg/dL 05-12-2018 [facility] conc (63385) Urea 17.6 OTH - mg/mg 05-12-2018 [facility] h nitrogen/Creatinin OTH ( 52433) e mass ratio This is an auto 05-12-2018 [facility] finalized result. Please (46455) refer to patient chart for further information. No panel information on 2018-04-24 Anion gap 3 molar 15 10 - 20 mmol/L Invalid 04-24-2018 [facility] conc Interpretation Code Calcium mass conc 9.4 8.4 - mg/dL Invalid 04-24-2018 [facility] 10.2 Interpretation Code Chloride molar conc 104 98 - 108 mmol/L Invalid 04-24-2018 [facility] Interpretation Code Creatinine mass 0.78 0.5 - mg/dL Invalid 04-24-2018 [facility] conc 1.3 Interpretation Code GFR/1.73 sq M The eGFR should Invalid 04-24-2018 [facility] predicted among be used for Interpretation non-blacks MDRD vol monitoring Code rate/area (S/P/Bld) renal function only and not for medication dosing. GFR/1.73 sq 114 >=60 Invalid 04-24-2018 [facility] M.predicted CKD-EPI mL/min/1 Interpretation vol rate/area .73 m2 Code (S/P/Bld) Glucose mass conc 86 65 - 99 mg/dL Invalid 04-24-2018 [facility] Interpretation Code HCO3 molar conc 23 21 - 32 mmol/L Invalid 04-24-2018 [facility] Interpretation Code Interpretation and Normal Invalid 04-24-2018 [facility] review of Interpretation laboratory results Code Potassium molar 4.0 3.5 - mmol/L Invalid 04-24-2018 [facility] conc 5.1 Interpretation Code Sodium molar conc 138 135 - mmol/L Invalid 04-24-2018 [facility] 145 Interpretation Code Urea nitrogen mass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 24.6 26 - 34 pg Low 12-25-2016 [facility] MCHC 30.3 31 - 37 g/dL Low 12-25-2016 [facility] MCV 81.2 80 - 100 fL Invalid 12-25-2016 [facility] Interpretation Code Nucleated 0.0 % Invalid 12-25-2016 [facility] erythrocytes/100 Interpretation Code erythrocytes Platelet mean volume 10.7 9 - 15.5 fL Invalid 7 [facility] (PMV) Interpretation Code Platelets 289 K/mcL 150 - 400 Invalid 12-25-2016 [facility] Interpretation Code RDW-CA 15.8 11.6 - % High 12-25-2016 [facility] 14.8 WBC (Leukocytes) 5.88 K/mcL 4.50 - Invalid 12-25-2016 [facility] 11.00 Interpretation Code Erythrocytes (RBC) 1.75 M/mcL 4.50 - Low 12-25-2016 [facility] 5.90 Erythrocytes (RBC) 0.00 K/mcL 0.00 - Invalid 12-25-2016 [facility] 0.00 Interpretation Code Hematocrit (HCT) 14.3 41 - 53 % Low 12-25-2016 [facility] Hemoglobin (HGB) 4.4 13.5 - g/dL Critically low 12-26-19 17 [facility] 17.5 MCH 25.1 26 - 34 pg Low 12-25-2016 [facility] MCHC 30.8 31 - 37 g/dL Low 12-25-2016 [facility] MCV 81.7 80 - 100 fL Invalid 12-25-2016 [facility] Interpretation Code Nucleated 0.0 % Invalid 12-25-2016 [facility] erythrocytes/100 Interpretation Code erythrocytes Platelet mean volume 11.3 9 - 15.5 fL Invalid 7 [facility] (PMV) Interpretation Code Platelets 166 K/mcL 150 - 400 Invalid 12-25-2016 [facility] Interpretation Code RDW-CA 16.1 11.6 - % High 12-25-2016 [facility] 14.8 WBC (Leukocytes) 3.04 K/mcL 4.50 - Low 12-25-2016 [facility] 11.00 creatinine, serum o n 2016-12-24 Creatinine 0.61 0.5 - mg/dL Invalid 12-24-2016 [facility] 1.3 Interpretation Code eGFR (non-black) 127 >=60 mL/min/{1 Invalid 12-24-2016 [facility] mL/min/1.73 m2 .73_m2} Interpretation Code eGFR (non-black) The eGFR Invalid 12-24-2016 [facility] should be used Interpretation for monitoring Code renal function only and not for medication dosing. Interpretation and Normal Invalid 12-24-2016 [facility] review of Interpretation laboratory results Code vancomycin level, trough on 2016-12-23 Interpretation and Normal Invalid 12-23-2016 [facility] review of laboratory Interpretation Code results Vancomycin 11.2 mcg/mL 5.0 - ug/mL Invalid 12-23-2016 [facility] B 20.0 Interpretation Code type and screen on 2016-12-23 ABO+Rh group O Positive Invalid 12-23-2016 [facility] T RANSFUSION Interpretation Code SERVICES Blood group Negative Invalid 12-23-2016 [facility] TRA NSFUSION antibody Interpretation Code SERVICES presence Specimen Expires 12/26/2016 Invalid 12-23-2016 [facility] TRANSFUSION 23:59 EST Interpretation Code SERVICES sedimentation rate on 2016-12-23 Erythrocyte sedimentation rate 48 mm/hr 0 - 15 High 12-23-2016 [facility] prepare rbc: 2 units on 2016-12-23 Blood Type O Pos Invalid 12-23-2016 [facility] PEREZ SFUSION Interpretation Code SERVICES Blood Type Code 5100 1 Invalid 12-23-2016 [facility] TRANSFUSION Interpretation Code SERVICES Cross Match Compatible Invalid 12-23-2016 [facility] TR ANSFUSION Interpretation Code SERVICES Product Code [id number] Invalid 12-23-2016 [facility] TR ANSFUSION Interpretation Code SERVICES Product ID Red Blood Cells Invalid 12-23-2016 [facility] TRANSFUSION Interpretation Code SERVICES Status Info Released Invalid 12-23-2016 [facility] TRA NSFUSION Interpretation Code SERVICES Unit Number [id number] Invalid 12-23-2016 [facility] TRANSFUSION Interpretation Code SERVICES Unit Number [id number] Invalid 12-23-2016 [facility] TRANSFUSION Interpretation Code SERVICES crp, inflammation o n 2016-12-23 C reactive protein (CRP) 16.6 0 - 10 mg/L High 12-23 [facility] chem 7 on 2016-11-25 1 Anion gap 14 10 - 20 mmol/L Invalid 12-23-2016 [facility] Interpretation Code Bicarbonate (HCO3) 27 21 - 32 mmol/L Invalid 12-23-2016 [facility] Interpretation Code BUN/Creatinine 13.3 10.0 - 1 Invalid 12-23-2016 [facility] Ratio 20.0 Interpretation Code Chloride 105 98 - mmol/L Invalid 12-23-2016 [facility] 108 Interpretation Code Creatinine 0.60 0.5 - mg/dL Invalid 12-23-2016 [facility] 1.3 Interpretation Code eGFR (non-black) 128 >=60 mL/min/{1. Invalid 12-23-2016 [facility] mL/min/1.73 m2 73_m2} Interpretation Code eGFR (non-black) The eGFR Invalid 12-23-2016 [facility] should be used Interpretation for monitoring Code renal function only and not for medication dosing. Glucose 128 65 - 99 mg/dL High 12-23-2016 [facility] Interpretation and Abnormal Invalid 12-23-2016 [facility] review of Interpretation laboratory results Code Potassium 3.7 3.5 - mmol/L Invalid 12-23-2016 [facility] 5.1 Interpretation Code Sodium 142 135 - mmol/L Invalid 12-23-2016 [facility] 145 Interpretation Code Urea nitrogen 8 8 - 25 mg/dL Invalid 12-23-2016 [facility] AB Interpretation Code cbc on 2016-12-23 Erythrocytes (RBC) 0.00 K/mcL 0.00 - 0.00 Invalid 12-24-19 17 [facility] Interpretation Code Erythrocytes (RBC) 3.01 M/mcL 4.50 - 5.90 Low 12-24-19 17 [facility] Hematocrit (HCT) 24.1 41 - 53 % Low 12-23-2016 [facility] Hemoglobin (HGB) 7.6 13.5 - 17.5 g/dL Low 12-23-2016 [facility] MCH 25.2 26 - 34 pg Low 12-23-2016 [facility] MCHC 31.5 31 - 37 g/dL Invalid 12-23-2016 [facility] Interpretation Code MCV 80.1 80 - 100 fL Invalid 12-23-2016 [facility] Interpretation Code Nucleated 0.0 % Invalid 12-23-2016 [facility] erythrocytes/100 Interpretation Code erythrocytes Platelet mean 10.3 9 - 15.5 fL Invalid 12-23-2016 [facility] AB volume (PMV) Interpretation Code Platelets 278 K/mcL 150 - 400 Invalid 12-23-2016 [facility] Interpretation Code RDW-CA 16.0 11.6 - 14.8 % High 12-23-2016 [facility] WBC (Leukocytes) 3.72 K/mcL 4.50 - Low 12-23-2016 [facility] 11.00 xr chest 1 view on 2016-12-22 PICC line in adequate Invalid Interpreta tion 12-22-2016 [employer] position with the tip in [facility] the SVC/right atrial junction. [facility] Workstation ID: [id number] Interface, Rad In [employer] Invalid Interpret ation 12-22-2016 [employer] Speechq - 12/22/2016 1:28 [facility] PM EDT EXAMINATION: SINGLE VIEW OF [...] the tip in the SVC/right atrial junction. [facility] Workstation ID: [id number] EXAMINATION: SINGLE VIEW Invalid Interpr etation 12-22-2016 [employer] SY[employer] OF THE CHEST 12/22/2016 [facility] 8:56 AM COMPARISON: 12/02/2016. HISTORY: ORDERING [...] Polymicrobic mixture of Invalid Interpre tation 12-22-2016 [place] aerobic and anaerobic Code [facility] organisms with no [facility] organism predominant. No Staphylococcus aureus. No Beta Streptococcus Group A. No Beta Streptococcus Group B. No Pseudomonas aeruginosa. No Clostridium perfringens. No Clostridium septicum. No Bacteroides fragilis. Contact Microbiology within 48 hours if further workup is clinically indicated. wound aerobic culture on 2016-12-22 Culture Polymicrobic Invalid 12-22-2016 [facility] mixture of aerobic Interpretation Code [facility] organisms with no [facility] organism predominant. No Staphylococcus aureus. No Beta Streptococcus Group A. No Beta Streptococcus Group B No Pseudomonas aeruginosa. Contact Microbiology within 48 hours if further workup is clinically indicated. INR in blood by Moderate WBC Invalid 12-22-2016 [place] coagulation Interpretation Code [facility] L AB INR in blood by Few Gram Positive {INR} Invalid 2016 [place] coagulation Cocci Interpretation Code [facility] L AB INR in blood by Moderate RBC Invalid 12-22-2016 [place] coagulation Interpretation Code [facility] L AB Gram Stain Invalid 12-22-2016 [facility] performed at [place] Interpretation [facility] chem 7 on 2016-11-25 0 Anion gap 15 10 - 20 mmol/L Invalid 12-22-2016 [facility] Interpretation Code Bicarbonate (HCO3) 24 21 - 32 mmol/L Invalid 12-22-2016 [facility] Interpretation Code BUN/Creatinine 22.6 10.0 - 1 High 12-22-2016 [facility] Ratio 20.0 Chloride 110 98 - mmol/L High 12-22-2016 [facility] 108 Creatinine 0.53 0.5 - mg/dL Invalid 12-22-2016 [facility] 1.3 Interpretation Code eGFR (non-black) 134 >=60 mL/min/{1. Invalid 12-22-2016 [facility] mL/min/1.73 m2 73_m2} Interpretation Code eGFR (non-black) The eGFR Invalid 12-22-2016 [facility] should be used Interpretation for monitoring Code renal function only and not for medication dosing. Glucose 97 65 - 99 mg/dL Invalid 12-22-2016 [facility] Interpretation Code Interpretation and Abnormal Invalid 12-22-2016 [facility] review of Interpretation laboratory results Code Potassium 3.8 3.5 - mmol/L Invalid 12-22-2016 [facility] 5.1 Interpretation Code Sodium 145 135 - mmol/L Invalid 12-22-2016 [facility] 145 Interpretation Code Urea nitrogen 12 8 - 25 mg/dL Invalid 12-22-2016 [facility] AB Interpretation Code vancomycin level, random on 2016-12-21 INR in blood by 6.0 mcg/mL Invalid Interpretation 12-21-2016 [facility] coagulation Code No established Invalid Interpretation [facility] reference range. Code protein,total on 09-12-28 Protein 6.8 6 - 8 g/dL Invalid Interpretation Code [facility] prealbumin on 12-21 Prealbumin 26.0 20 - 40 mg/dL Invalid Interpretation Code 0 12-21-2016 [facility] cbc on 2016-12-21 Erythrocytes (RBC) 3.46 M/mcL 4.50 - Low 12-21-2016 [facility] 5.90 Erythrocytes (RBC) 0.00 K/mcL 0.00 - Invalid 12-21-2016 [facility] 0.00 Interpretation Code Hematocrit (HCT) 27.2 41 - 53 % Low 12-21-2016 [facility] Hemoglobin (HGB) 8.7 13.5 - g/dL Low 12-21-2016 [facility] 17.5 Interpretation and Abnormal Invalid 12-21-2016 [facility] review of laboratory Interpretation Code results MCH 25.1 26 - 34 pg Low 12-21-2016 [facility] MCHC 32.0 31 - 37 g/dL Invalid 12-21-2016 [facility] Interpretation Code MCV 78.6 80 - 100 fL Low 12-21-2016 [facility] Nucleated 0.0 % Invalid 12-21-2016 [facility] erythrocytes/100 Interpretation Code erythrocytes Platelet mean volume 10.5 9 - 15.5 fL Invalid 7 [facility] (PMV) Interpretation Code Platelets 388 K/mcL 150 - 400 Invalid 12-21-2016 [facility] Interpretation Code RDW-CA 16.2 11.6 - % High 12-21-2016 [facility] 14.8 WBC (Leukocytes) 11.69 K/mcL 4.50 - High 12-21-2016 [facility] 11.00 albumin on Albumin 3.9 3.2 - 5.2 g/dL Invalid Interpretation 017 [facility] Code Interpretation and Normal Invalid Interpretatio n 12-21-2016 [facility] review of laboratory Code results vancomycin level, trough on 2016-12-08 Interpretation and Normal Invalid 12-08-2016 [facility] review of laboratory Interpretation Code results Vancomycin 9.4 mcg/mL 5.0 - ug/mL Invalid 12-08-2016 [facility] 20.0 Interpretation Code hemoglobin and hematocrit on 2016-12-08 Hematocrit (HCT) 22.7 41 - 53 % Low 12-08-2016 [facility] Hemoglobin (HGB) 7.2 13.5 - g/dL Low 12-08-2016 [facility] 17.5 Interpretation and Abnormal Invalid 12-08-2016 [facility] review of laboratory Interpretation Code results chem 7 on 2016-11-23 6 Anion gap 14 10 - 20 mmol/L Invalid 12-08-2016 [facility] Interpretation Code Bicarbonate (HCO3) 28 21 - 32 mmol/L Invalid 12-08-2016 [facility] Interpretation Code BUN/Creatinine 17.0 10.0 - 1 Invalid 12-08-2016 [facility] Ratio 20.0 Interpretation Code Chloride 104 98 - mmol/L Invalid 12-08-2016 [facility] 108 Interpretation Code Creatinine 0.53 0.5 - mg/dL Invalid 12-08-2016 [facility] 1.3 Interpretation Code eGFR (non-black) 134 >=60 mL/min/{1. Invalid 12-08-2016 [facility] mL/min/1.73 m2 73_m2} Interpretation Code eGFR (non-black) The eGFR Invalid 12-08-2016 [facility] should be used Interpretation for monitoring Code renal function only and not for medication dosing. Glucose 87 65 - 99 mg/dL Invalid 12-08-2016 [facility] Interpretation Code Interpretation and Normal Invalid 12-08-2016 [facility] review of Interpretation laboratory results Code Potassium 4.3 3.5 - mmol/L Invalid 12-08-2016 [facility] 5.1 Interpretation Code Sodium 142 135 - mmol/L Invalid 12-08-2016 [facility] 145 Interpretation Code Urea nitrogen 9 8 - 25 mg/dL Invalid 12-08-2016 [facility] AB Interpretation Code cbc on 2016-12-08 Erythrocytes (RBC) 0.00 K/mcL 0.00 - Invalid 12-08-2016 [facility] 0.00 Interpretation Code Erythrocytes (RBC) 2.44 M/mcL 4.50 - Low 12-08-2016 [facility] 5.90 Hematocrit (HCT) 20.1 41 - 53 % Low 12-08-2016 [facility] Hemoglobin (HGB) 6.4 13.5 - g/dL Critically low 12-09-19 17 [facility] 17.5 Interpretation and Abnormal Invalid 12-08-2016 [facility] review of laboratory Interpretation Code results MCH 26.2 26 - 34 pg Invalid 12-08-2016 [facility] Interpretation Code MCHC 31.8 31 - 37 g/dL Invalid 12-08-2016 [facility] Interpretation Code MCV 82.4 80 - 100 fL Invalid 12-08-2016 [facility] Interpretation Code Nucleated 0.0 % Invalid 12-08-2016 [facility] erythrocytes/100 Interpretation Code erythrocytes Platelet mean volume 10.1 9 - 15.5 fL Invalid 7 [facility] (PMV) Interpretation Code Platelets 221 K/mcL 150 - 400 Invalid 12-08-2016 [facility] Interpretation Code RDW-CA 16.2 11.6 - % High 12-08-2016 [facility] 14.8 WBC (Leukocytes) 5.71 K/mcL 4.50 - Invalid 12-08-2016 [facility] 11.00 Interpretation Code creatinine, serum o n 2016-12-07 Creatinine 0.59 0.5 - mg/dL Invalid 12-07-2016 [facility] 1.3 Interpretation Code eGFR (non-black) 128 >=60 mL/min/{1 Invalid 12-07-2016 [facility] mL/min/1.73 m2 .73_m2} Interpretation Code eGFR (non-black) The eGFR Invalid 12-07-2016 [facility] should be used Interpretation for monitoring Code renal function only and not for medication dosing. Interpretation and Normal Invalid 12-07-2016 [facility] review of Interpretation laboratory results Code vancomycin level, random on 2016-12-06 INR in blood by 6.1 mcg/mL Invalid Interpretation 12-06-2016 [facility] coagulation Code No established Invalid Interpretation [facility] reference range. Code phosphorus on 12-06 Interpretation and Normal Invalid Interpretatio n 12-06-2016 [facility] review of laboratory Code results Phosphate 3.8 2.7 - mg/dL Invalid Interpretation 017 [facility] 4.5 Code magnesium level on 2016-12-06 Magnesium 1.7 1.6 - 2.4 mg/dL Invalid Interpretation Code [facility] cbc auto differential on 2016-12-06 Basophils 0.03 K/mcL 0.00 - Invalid 12-06-2016 [facility] 0.30 Interpretation Code Basophils/100 0.4 % Invalid 12-06-2016 [facility] AB leukocytes Interpretation Code Eosinophils 0.18 K/mcL 0.00 - Invalid 12-06-2016 [facility] B 0.50 Interpretation Code Eosinophils/100 2.6 % Invalid 12-06-2016 [facility] leukocytes Interpretation Code Erythrocytes (RBC) 0.00 K/mcL 0.00 - Invalid 12-06-2016 [facility] 0.00 Interpretation Code Erythrocytes (RBC) 2.91 M/mcL 4.50 - Low 12-06-2016 [facility] 5.90 Hematocrit (HCT) 24.2 41 - 53 % Low 12-06-2016 [facility] Hemoglobin (HGB) 7.6 13.5 - g/dL Low 12-06-2016 [facility] 17.5 IG Absolute 0.02 K/mcL 0.00 - Invalid 12-06-2016 [facility] B 0.30 Interpretation Code IG Percent 0.30 % Invalid 12-06-2016 [facility] Interpretation Code Interpretation and Abnormal Invalid 12-06-2016 [facility] review of laboratory Interpretation Code results Lymphocytes 1.77 K/mcL 0.90 - Invalid 12-06-2016 [facility] B 4.00 Interpretation Code Lymphocytes/100 25.3 % Invalid 12-06-2016 [facility] leukocytes Interpretation Code MCH 26.1 26 - 34 pg Invalid 12-06-2016 [facility] Interpretation Code MCHC 31.4 31 - 37 g/dL Invalid 12-06-2016 [facility] Interpretation Code MCV 83.2 80 - 100 fL Invalid 12-06-2016 [facility] Interpretation Code Monocytes 0.78 K/mcL 0.30 - Invalid 12-06-2016 [facility] 0.90 Interpretation Code Monocytes/100 11.1 % Invalid 12-06-2016 [facility] AB leukocytes Interpretation Code Neutrophils 4.22 K/mcL 1.70 - Invalid 12-06-2016 [facility] B 7.00 Interpretation Code Neutrophils/100 60.3 % Invalid 12-06-2016 [facility] leukocytes Interpretation Code Nucleated 0.0 % Invalid 12-06-2016 [facility] erythrocytes/100 Interpretation Code erythrocytes Platelet mean volume 10.5 9 - 15.5 fL Invalid 7 [facility] (PMV) Interpretation Code Platelets 249 K/mcL 150 - 400 Invalid 12-06-2016 [facility] Interpretation Code RDW-CA 15.9 11.6 - % High 12-06-2016 [facility] 14.8 WBC (Leukocytes) 7.00 K/mcL 4.50 - Invalid 12-06-2016 [facility] 11.00 Interpretation Code cbc and differential on 2016-12-06 Creatinine The following orders were Invalid [facility] for panel order CBC Interpretati on (99171) and Differential. Procedure Code Abnormality Status --------- ------ CBC Auto Differential[[id number]] Abnormal Final result CBC and Diff Morphology[[id number]] Final result Please view results for these tests on the individual orders. cbc and diff morphology on 2016-12-06 Anisocytosis presence 1+ Invalid Interpreta tion Code 12-06-2016 [facility] Platelets presence Normal Normal Invalid Interpretatio n Code 12-06-2016 [facility] basic metabolic panel on 2016-12-06 Anion gap 16 10 - 20 mmol/L Invalid 12-06-2016 [facility] Interpretation Code Bicarbonate 29 21 - 32 mmol/L Invalid 12-06-2016 [facility] (HCO3) Interpretation Code BUN/Creatinine 18.6 10.0 - 1 Invalid 12-06-2016 [facility] Ratio 20.0 Interpretation Code Calcium 8.9 8.4 - mg/dL Invalid 12-06-2016 [facility] 10.2 Interpretation Code Chloride 99 98 - 108 mmol/L Invalid 12-06-2016 [facility] Interpretation Code Creatinine 0.59 0.5 - mg/dL Invalid 12-06-2016 [facility] 1.3 Interpretation Code eGFR (non-black) The eGFR should Invalid 017 [facility] be used for Interpretation monitoring Code renal function only and not for medication dosing. eGFR (non-black) 128 mL/min/1.73 >=60 mL/min/{1. Invalid 2016 [facility] m2 73_m2} Interpretation Code Glucose 98 65 - 99 mg/dL Invalid 12-06-2016 [facility] Interpretation Code Potassium 4.4 3.5 - mmol/L Invalid 12-06-2016 [facility] 5.1 Interpretation Code Sodium 140 135 - mmol/L Invalid 12-06-2016 [facility] 145 Interpretation Code Urea nitrogen 11 8 - 25 mg/dL Invalid 12-06-2016 [facility] AB Interpretation Code wound aerobic culture on 2016-12-03 Culture Few Growth (4-10 Abnormal 12-03-2016 [facility] colonies per plate) [facility] Fadia albicans [facility] Culture Few Growth (4-10 Abnormal 12-03-2016 [facility] colonies per plate) [facility] Coagulase Negative [facility] Staphylococcus INR in blood by Many WBC Invalid 12-03-2016 [facility] coagulation Interpretation Code [facility] L AB INR in blood by Many RBC Invalid 12-03-2016 [facility] coagulation Interpretation Code [facility] L AB INR in blood by No Epithelial Cells Invalid 11-23 [place] coagulation Seen Interpretation Code [facility] L AB INR in blood by No Organisms Seen Invalid 2016 [place] coagulation Interpretation Code [facility] L AB Interpretation and Abnormal Invalid 12-03-2016 [place] review of Interpretation Code [facility] laboratory results [facility] Gram Stain Invalid 12-03-2016 [facility] performed at [place] Interpretation [facility] Laboratory xr chest 1 view on 2016-12-02 PICC line is in a Invalid Interpretation 12-02-2016 [facility] satisfactory position. Code [facility] There appears to be a very minimal right apical pneumothorax. Workstation ID: [id number] Interface, Rad In Fuji Invalid Interpret ation 12-02-2016 [employer] Speech[employer] - 12/02/2016 1:28 [facility] PM EDT EXAMINATION: SINGLE VIEW OF [...] very minimal right apical pneumothorax. Workstation ID: [id number] EXAMINATION: SINGLE VIEW Invalid Interpr etation 12-02-2016 [employer] OF THE CHEST 12/02/2016 [facility] 12:00 pm COMPARISON: 10/15/2016 HISTORY: ORDERING [...] 2016-12-02 ABO+Rh group O Positive Invalid 12-02-2016 [facility] RANSFUSION Interpretation Code SERVICES Blood group Negative Invalid 12-02-2016 [facility] NSFUSION antibody Interpretation Code SERVICES presence Specimen Expires 12/05/2016 Invalid 12-02-2016 [facility] TRANSFUSION 23:59 EST Interpretation Code SERVICES pt/inr on 2016-11-23 0 Coagulation factor 1.0 0.8 - 1 Invalid 12-02-2016 [facility] induced.INR assay 1.1 Interpretation in platelet poor Code plasma Coagulation tissue 13.2 seconds 11.8 - Invalid 12-03-19 17 [facility] factor induced in 14.3 Interpretation platelet poor Code plasma INR in blood by During the induction Invalid [facility] coagulation phase of oral Interpretation anticoagulation, the Code INR may not reflect the anticoagulation status of the patient. Therapeutic ranges for INR's are: Most clinical situations: INR 2.0-3.0 Mechanical Prosthetic Valve: INR 2.5-3.5 Critical: INR >5.0 Interpretation and Normal Invalid 12-02-2016 [facility] review of Interpretation laboratory results Code comprehensive metabolic panel on 2016-12-02 Alanine 12 0 - 40 U/L Invalid 12-02-2016 [facility] aminotransferase Interpretation (ALT) Code Albumin 4.0 3.2 - g/dL Invalid 12-02-2016 [facility] 5.2 Interpretation Code Alkaline phosphatase 95 40 - U/L Invalid 7 [facility] (ALP) 140 Interpretation Code Anion gap 16 10 - 20 mmol/L Invalid 12-02-2016 [facility] Interpretation Code Aspartate 12 0 - 45 U/L Invalid 12-02-2016 [facility] aminotransferase Interpretation (AST) Code Bicarbonate (HCO3) 24 21 - 32 mmol/L Invalid 12-02-2016 [facility] Interpretation Code Bilirubin (total) 0.2 0 - 1.3 mg/dL Invalid 12-02-2016 [facility] Interpretation Code BUN/Creatinine Ratio 14.9 10.0 - 1 Invalid 7 [facility] 20.0 Interpretation Code Calcium 9.2 8.4 - mg/dL Invalid 12-02-2016 [facility] 10.2 Interpretation Code Chloride 103 98 - mmol/L Invalid 12-02-2016 [facility] 108 Interpretation Code Creatinine 0.67 0.5 - mg/dL Invalid 12-02-2016 [facility] 1.3 Interpretation Code eGFR (non-black) 122 >=60 mL/min/ Invalid 12-02-2016 [facility] mL/min/1.73 m2 {1.73_m Interpretation 2} Code eGFR (non-black) The eGFR Invalid 12-02-2016 [facility] should be used Interpretation for monitoring Code renal function only and not for medication dosing. Glucose 84 65 - 99 mg/dL Invalid 12-02-2016 [facility] Interpretation Code Potassium 4.0 3.5 - mmol/L Invalid 12-02-2016 [facility] 5.1 Interpretation Code Protein 7.1 6 - 8 g/dL Invalid 12-02-2016 [facility] Interpretation Code Sodium 139 135 - mmol/L Invalid 12-02-2016 [facility] 145 Interpretation Code Urea nitrogen 10 8 - 25 mg/dL Invalid 12-02-2016 [facility] AB Interpretation Code cbc on 2016-12-02 Erythrocytes (RBC) 3.73 M/mcL 4.50 - Low 12-02-2016 [facility] 5.90 Erythrocytes (RBC) 0.00 K/mcL 0.00 - Invalid 12-02-2016 [facility] 0.00 Interpretation Code Hematocrit (HCT) 30.5 41 - 53 % Low 12-02-2016 [facility] Hemoglobin (HGB) 9.6 13.5 - g/dL Low 12-02-2016 [facility] 17.5 Interpretation and Abnormal Invalid 12-02-2016 [facility] review of laboratory Interpretation Code results MCH 25.7 26 - 34 pg Low 12-02-2016 [facility] MCHC 31.5 31 - 37 g/dL Invalid 12-02-2016 [facility] Interpretation Code MCV 81.8 80 - 100 fL Invalid 12-02-2016 [facility] Interpretation Code Nucleated 0.0 % Invalid 12-02-2016 [facility] erythrocytes/100 Interpretation Code erythrocytes Platelet mean volume 9.8 9 - 15.5 fL Invalid 7 [facility] (PMV) Interpretation Code Platelets 307 K/mcL 150 - 400 Invalid 12-02-2016 [facility] Interpretation Code RDW-CA 15.3 11.6 - % High 12-02-2016 [facility] 14.8 WBC (Leukocytes) 5.36 K/mcL 4.50 - Invalid 12-02-2016 [facility] 11.00 Interpretation Code creatinine, serum o n 2016-11-25 Creatinine 0.58 0.5 - mg/dL Invalid 11-25-2016 [facility] 1.3 Interpretation Code eGFR (non-black) 129 >=60 mL/min/{1 Invalid 11-25-2016 [facility] mL/min/1.73 m2 .73_m2} Interpretation Code eGFR (non-black) The eGFR Invalid 11-25-2016 [facility] should be used Interpretation for monitoring Code renal function only and not for medication dosing. Interpretation and Normal Invalid 11-25-2016 [facility] review of Interpretation laboratory results Code creatinine, serum o n 2016-11-24 Creatinine 0.68 0.5 - mg/dL Invalid 11-24-2016 [facility] 1.3 Interpretation Code eGFR (non-black) 121 >=60 mL/min/{1 Invalid 11-24-2016 [facility] mL/min/1.73 m2 .73_m2} Interpretation Code eGFR (non-black) The eGFR Invalid 11-24-2016 [facility] should be used Interpretation for monitoring Code renal function only and not for medication dosing. Interpretation and Normal Invalid 11-24-2016 [facility] review of Interpretation laboratory results Code vitamin d, total, 25-oh on 2016-11-23 Interpretation and Normal Invalid 11-23-2016 [place] review of Interpretation [facility] laboratory results Code [facility] Vit D, 25-Hydroxy 39 30 - ng/m Invalid 11-23-2016 [facility] 100 L Interpretation [facility] Code [facility]OSPITAL L AB specimen Invalid 11-23-2016 [place] already Interpretation [facility] obtained - Code [facility]OS[facility] LAB thanks creatinine, serum o n 2016-11-23 Creatinine 0.73 0.5 - mg/dL Invalid 11-23-2016 [facility] 1.3 Interpretation Code eGFR (non-black) The [...] Growth Beta Abnormal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 Culture Wound culture Wound culture Routine 02-03-2018 [facility] ([id number]) Chronic osteomyelitis of facial bones (HCC) 1 Occurrences starting 02/03/2017 until 02/03/2018 Wound Fungus Culture no information [facility] ([id number]) XR Knee Left 2 Views XR Knee Left 2 Views 03-31-2017 [facility] ([id number]) (Standard) (Standard) Routine Type I or II open comminuted fracture of left patella with routine healing Once for 1 Occurrences starting 03/31/2017 until 03/31/2017 XR Knee Left 2 Views XR Knee Left 2 Views [facility] ([id number]) (Standard) (Standard) Routine Type I or II open comminuted fracture of left patella with routine healing 03/31/2017 1:09 PM EST Immunizations Vaccine Notes Status Date Location TDAP tetanus toxoid, reduced (completed) 08-27-2016 - [facility] ([id number]) diphtheria toxoid, and 08-27-2016 acellular pertussis vaccine, adsorbed Payers Payer Name Policy Number Location [facility] MANAGED MEDICAID xxxxxxxxxxx [facility] ( [id number]) [employer]NAGED MEDICAID [id number] [facility] ([id number]) [place] [employer], MEDICAID, [id number] [facility] ([id number]) [place] [employer], MEDICAID, [place] [employer], MEDICAID, [place] [employer] MED[place] [place] [employer] [place] xxxxxxxxxxxx [facility] ([id number]) [id number] [facility] ([id number]) [id number] [facility] ([id number]) [id number] [facility] ([id number]) [id number] [facility] ([id number]) [id number] [facility] ([id number]) [id number] [facility] ([id number]) [id number] [facility] ([id number]) [id number] [facility] ([id number]) [id number] [facility] ([id number]) [id number] [facility] ([id number]) [id number] [facility] ([id number]) [id number] [facility] ([id number]) [id number] [facility] ([id number]) [id number] [facility] ([id number]) [id number] [facility] ([id number]) [phone] [facility] ([id number]) The following information is from the original human readable contentNo Payer Records Found Social History Type Social History Date Location Description Tobacco smoking status Former smoker 12-21-2016 - [facility] [place] ([id number]) KSIS 03-14-2017 History of tobacco use Current smoker 08-25-2016 [facility] [place] ([id number]) Sex Assigned At Not on file [facility] ([id number]) Tobacco Comment 1 pack per week for 20 10-01-2016 - [facility] [place] ([id number]) years 10-01-2016 Tobacco smoking status Current every day smoker 06-05-2018 - [facility] ([id number]) NHIS 09-06-2018 Alcohol intake Current non-drinker of 09-06-2018 [facility] h ([id number]) alcohol (finding) The following information is from [...] 12-24-2016 Radiopaque Simplex P Single Dose - [id number] Screw 2.4 X 22mm Moraima 017 Ang Lock Strdrv - [id number] Tube Sz8 Trach 08-26-2016 Cuffed - [id number] Tube 22fr Feeding 08-26-2016 Gastrostomy Junior - [id number] Screw 2.4 X 32mm Va 08-28-19 17 Lock Self-Tap Strdrv Rec - [id number] Screw 2.4 X 44mm Va 08-28-19 17 Lock Self-Tap Strdrv Rec - [id number] Screw 2.4 X 36mm 08-27-2016 Cortex Self-Tap T8 Strdrv Rec - [id number] Screw 2.4 X 38mm 08-27-2016 Cortex Self-Tap T8 Strdrv Rec - [id number] Wire K .045 X 5.5in 08-28-19 17 W/Wire Guide - [id number] Plate 2.4mm 2.7mm 08-27-2016 Va-Lock Mesh 5 X 12hls - [id number] Wire 15 X 150mm 08-27-2016 Compression Thrd - [id number] 1.6mm Compression 08-27-2016 Wires 20mm Thread Length, 1500mm Total Length Screw 2.4 X 18mm Moraima 017 Ang Lock Strdrv - [id number] Screw 2.4 X 20mm Moraima 017 Ang Lock Strdrv - [id number] Screw 2.4 X 22mm Moraima 017 Ang Lock Strdrv - [id number] Hemostat 8 X 12.5cm 11-04-19 17 X 10mm Surgifoam Gelatin Sponge - [id number] Screw 2.5 X 4mm Ti 7 Schanz 14mm Thrd Body - [id number] Hemostat 2 X 14in 12-03-2016 Surgicel - [id number] Mandible Bone Infuse Bone 11-03-2016 Graft Sm - [id number] Bone Infuse Bone 05-25-2017 Graft Xsm - [id number] Cement Bone 12-24-2016 Radiopaque Simplex P Single Dose - [id number] Tube Sz8 Trach 08-26-2016 Cuffed - [id number] Tube 22fr Feeding 08-26-2016 Gastrostomy Junior - [id number] Screw 2.4 X 32mm Va 08-28-19 17 Lock Self-Tap Strdrv Rec - [id number] Screw 2.4 X 44mm Va 08-28-19 17 Lock Self-Tap Strdrv Rec - [id number] Screw 2.4 X 36mm 08-27-2016 Cortex Self-Tap T8 Strdrv Rec - [id number] Screw 2.4 X 38mm 08-27-2016 Cortex Self-Tap T8 Strdrv Rec - [id number] Wire K .045 X 5.5in 08-28-19 17 W/Wire Guide - [id number] Plate 2.4mm 2.7mm 08-27-2016 Va-Lock Mesh 5 X 12hls - [id number] Wire 15 X 150mm 08-27-2016 Compression Thrd - [id number] 1.6mm Compression 08-27-2016 Wires 20mm Thread Length, 1500mm Total Length Screw 2.4 X 18mm Moraima 017 Ang Lock Strdrv - [id number] Screw 2.4 X 20mm Moraima 017 Ang Lock Strdrv - [id number] Screw 2.4 X 22mm Mor[place]a 017 Ang Lock Strdrv - [id number] Hemostat 8 X 12.5cm 11-04-19 17 X 10mm Surgifoam Gelatin Sponge - [id number] Screw 2.5 X 4mm Ti 7 Schanz 14mm Thrd Body - [id number] Hemostat 2 X 14in 12-03-2016 Surgicel - [id number] Hemostat 8 X 6.25cm 05-25-19 18 X 10mm Surgifoam Gelatin Sponge - [id number] Screw 2 X 10mm Cross 018 Pin Locking - [id number] Screw 2 X 14mm Cross 018 Pin Locking - [id number] Plate 11hl Str Recon 018 - [id number] Bone Infuse Bone 11-03-2016 Graft Sm - [id number] Bone Infuse Bone 05-25-2017 Graft Xsm - [id number] Cement Bone 12-24-2016 Radiopaque Simplex P Single Dose - [id number] Tube Sz8 Trach 08-26-2016 Cuffed - Byf343989 Tube 22fr Feeding 08-26-2016 Gastrostomy Junior - Fwb183686 Screw 2.4 X 32mm Va 08-28-19 17 Lock Self-Tap Strdrv Rec - [id number] Screw 2.4 X 44mm Va 08-28-19 17 Lock Self-Tap Strdrv Rec - [id number] Screw 2.4 X 36mm 08-27-2016 Cortex Self-Tap T8 Strdrv Rec - [id number] Screw 2.4 X 38mm 08-27-2016 Cortex Self-Tap T8 Strdrv Rec - [id number] Wire K .045 X 5.5in 08-28-19 17 W/Wire Guide - [id number] Plate 2.4mm 2.7mm 08-27-2016 Va-Lock Mesh 5 X 12hls - [id number] Wire 15 X 150mm 08-27-2016 Compression Thrd - [id number] 1.6mm Compression 08-27-2016 Wires 20mm Thread Length, 1500mm Total Length Screw 2.4 X 18mm Moraima 017 Ang Lock Strdrv - [id number] Screw 2.4 X 20mm Moraima 017 Ang Lock Strdrv - [id number] Screw 2.4 X 22mm Moraima 017 Ang Lock Strdrv - [id number] Hemostat 8 X 12.5cm 11-04-19 17 X 10mm Surgifoam Gelatin Sponge - [id number] Screw 2.5 X 4mm Ti 7 Schanz 14mm Thrd Body - [id number] Hemostat 2 X 14in 12-03-2016 Surgicel - [id number] Hemostat 8 X 6.25cm 05-25-19 18 X 10mm Surgifoam Gelatin Sponge - [id number] Screw 2 X 10mm Cross 018 Pin Locking - [id number] Screw 2 X 14mm Cross 018 Pin Locking - [id number] Plate 11hl Str Recon 018 - [id number] Bone Infuse Bone 11-03-2016 Graft Sm - [id number] Bone Infuse Bone 05-25-2017 Graft Xsm - [id number] Cement Bone 12-24-2016 Radiopaque Simplex P Single Dose - [id number] Tube Sz8 Trach 08-26-2016 Cuffed - [id number] Tube 22fr Feeding 08-26-2016 Gastrostomy Junior - Zyb276028 Screw 2.4 X 32mm Va 08-28-19 17 Lock Self-Tap Strdrv Rec - [id number] Screw 2.4 X 44mm Va 08-28-19 17 Lock Self-Tap Strdrv Rec - Rqt342235 Screw 2.4 X 36mm 08-27-2016 Cortex Self-Tap T8 Strdrv Rec - [id number] Screw 2.4 X 38mm 08-27-2016 Cortex Self-Tap T8 Strdrv Rec - [id number] Wire K .045 X 5.5in 08-28-19 17 W/Wire Guide - [id number] Plate 2.4mm 2.7mm 08-27-2016 Va-Lock Mesh 5 X 12hls - Nfq483494 Wire 15 X 150mm 08-27-2016 Compression Thrd - [id number] 1.6mm Compression 08-27-2016 Wires 20mm Thread Length, 1500mm Total Length Screw 2.4 X 18mm Moraima 017 Ang Lock Strdrv - [id number] Screw 2.4 X 20mm Moraima 017 Ang Lock Strdrv - [id number] Screw 2.4 X 22mm Moraima 017 Ang Lock Strdrv - [id number] Hemostat 8 X 12.5cm 11-04-19 17 X 10mm Surgifoam Gelatin Sponge - [id number] Screw 2.5 X 4mm Ti 7 Schanz 14mm Thrd Body - [id number] Hemostat 2 X 14in 12-03-2016 Surgicel - [id number] Hemostat 8 X 6.25cm 05-25-19 18 X 10mm Surgifoam Gelatin Sponge - [id number] Screw 2 X 10mm Cross 018 Pin Locking - [id number] Screw 2 X 14mm Cross 018 Pin Locking - [id number] Plate 11hl Str Recon 018 - [id number] Bone Infuse Bone 11-03-2016 Graft Sm - [id number] Bone Infuse Bone 05-25-2017 Graft Xsm - Ylz6953263 Cement Bone 12-24-2016 Radiopaque Simplex P Single Dose - [id number] Tube Sz8 Trach 08-26-2016 Cuffed - Swy024738 Tube 22fr Feeding 08-26-2016 Gastrostomy Junior - Pjy262530 Screw 2.4 X 32mm Va 08-28-19 17 Lock Self-Tap Strdrv Rec - [id number] Screw 2.4 X 44mm Va 08-28-19 17 Lock Self-Tap Strdrv Rec - [id number] Screw 2.4 X 36mm 08-27-2016 Cortex Self-Tap T8 Strdrv Rec - [id number] Screw 2.4 X 38mm 08-27-2016 Cortex Self-Tap T8 Strdrv Rec - [id number] Wire K .045 X 5.5in 08-28-19 17 W/Wire Guide - [id number] Plate 2.4mm 2.7mm 08-27-2016 Va-Lock Mesh 5 X 12hls - Rdv117727 Wire 15 X 150mm 08-27-2016 Compression Thrd - [id number] 1.6mm Compression 08-27-2016 Wires 20mm Thread Length, 1500mm Total Length Screw 2.4 X 18mm Moraima 017 Ang Lock Strdrv - [id number] Screw 2.4 X 20mm Moraima 017 Ang Lock Strdrv - [id number] Screw 2.4 X 22mm Mor[place]a 017 Ang Lock Strdrv - [id number] Hemostat 8 X 12.5cm 11-04-19 17 X 10mm Surgifoam Gelatin Sponge - [id number] Screw 2.5 X 4mm Ti 7 Schanz 14mm Thrd Body - [id number] Hemostat 2 X 14in 12-03-2016 Surgicel - [id number] Hemostat 8 X 6.25cm 05-25-19 18 X 10mm Surgifoam Gelatin Sponge - [id number] Screw 2 X 10mm Cross 018 Pin Locking - [id number] Screw 2 X 14mm Cross 018 Pin Locking - [id number] Plate 11hl Str Recon 018 - [id number] Bone Infuse Bone 11-03-2016 Graft Sm - [id number] Bone Infuse Bone 05-25-2017 Graft Xsm - [id number] Cement Bone 12-24-2016 Radiopaque Simplex P Single Dose - [id number] Tube Sz8 Trach 08-26-2016 Cuffed - Fvq039202 Tube 22fr Feeding 08-26-2016 Gastrostomy Junior - Zkr688630 Screw 2.4 X 32mm Va 08-28-19 17 Lock Self-Tap Strdrv Rec - [id number] Screw 2.4 X 44mm Va 08-28-19 17 Lock Self-Tap Strdrv Rec - Yzv582355 Screw 2.4 X 36mm 08-27-2016 Cortex Self-Tap T8 Strdrv Rec - [id number] Screw 2.4 X 38mm 08-27-2016 Cortex Self-Tap T8 Strdrv Rec - [id number] Wire K .045 X 5.5in 08-28-19 17 W/Wire Guide - [id number] Plate 2.4mm 2.7mm 08-27-2016 Va-Lock Mesh 5 X 12hls - [id number] Wire 15 X 150mm 08-27-2016 Compression Thrd - [id number] 1.6mm Compression 08-27-2016 Wires 20mm Thread Length, 1500mm Total Length Screw 2.4 X 18mm Moraima 017 Ang Lock Strdrv - [id number] Screw 2.4 X 20mm Moraima 017 Ang Lock Strdrv - Xgo323704 Screw 2.4 X 22mm Mor[place]a 017 Ang Lock Strdrv - [id number] Hemostat 8 X 12.5cm 11-04-19 17 X 10mm Surgifoam Gelatin Sponge - [id number] Screw 2.5 X 4mm Ti 7 Schanz 14mm Thrd Body - [id number] Hemostat 2 X 14in 12-03-2016 Surgicel - [id number] Hemostat 8 X 6.25cm 05-25-19 18 X 10mm Surgifoam Gelatin Sponge - Bzl7510173 Screw 2 X 10mm Cross 018 Pin Locking - [id number] Screw 2 X 14mm Cross 018 Pin Locking - [id number] Plate 11hl Str Recon 018 - [id number] Bone Infuse Bone 11-03-2016 Graft Sm - [id number] Bone Infuse Bone 05-25-2017 Graft Xsm - [id number] Cement Bone 12-24-2016 Radiopaque Simplex P Single Dose - [id number] Tube Sz8 Trach 08-26-2016 Cuffed - Yps809068 Tube 22fr Feeding 08-26-2016 Gastrostomy Junior - Rqi444813 Screw 2.4 X 32mm Va 08-28-19 17 Lock Self-Tap Strdrv Rec - Ihj247171 Screw 2.4 X 44mm Va 08-28-19 17 Lock Self-Tap Strdrv Rec - [id number] Screw 2.4 X 36mm 08-27-2016 Cortex Self-Tap T8 Strdrv Rec - [id number] Screw 2.4 X 38mm 08-27-2016 Cortex Self-Tap T8 Strdrv Rec - Whx206828 Wire K .045 X 5.5in 08-28-19 17 W/Wire Guide - [id number] Plate 2.4mm 2.7mm 08-27-2016 Va-Lock Mesh 5 X 12hls - Fjx054090 Wire 15 X 150mm 08-27-2016 Compression Thrd - [id number] 1.6mm Compression 08-27-2016 Wires 20mm Thread Length, 1500mm Total Length Screw 2.4 X 18mm Moraima 017 Ang Lock Strdrv - Hfk901290 Screw 2.4 X 20mm Moraima 017 Ang Lock Strdrv - Foy308045 Screw 2.4 X 22mm Moraima 017 Ang Lock Strdrv - [id number] Hemostat 8 X 12.5cm 11-04-19 17 X 10mm Surgifoam Gelatin Sponge - [id number] Screw 2.5 X 4mm Ti 7 Schanz 14mm Thrd Body - [id number] Hemostat 2 X 14in 12-03-2016 Surgicel - [id number] Hemostat 8 X 6.25cm 05-25-19 18 X 10mm Surgifoam Gelatin Sponge - Yzc6105045 Screw 2 X 10mm Cross 018 Pin Locking - [id number] Screw 2 X 14mm Cross 018 Pin Locking - [id number] Plate 11hl Str Recon 018 - [id number] Bone Infuse Bone 11-03-2016 Graft Sm - [id number] Bone Infuse Bone 05-25-2017 Graft Xsm - [id number] Cement Bone 12-24-2016 Radiopaque Simplex P Single Dose - [id number] Tube Sz8 Trach 08-26-2016 Cuffed - Cyi686950 Tube 22fr Feeding 08-26-2016 Gastrostomy Junior - [id number] Screw 2.4 X 32mm Va 08-28-19 17 Lock Self-Tap Strdrv Rec - [id number] Screw 2.4 X 44mm Va 08-28-19 17 Lock Self-Tap Strdrv Rec - [id number] Screw 2.4 X 36mm 08-27-2016 Cortex Self-Tap T8 Strdrv Rec - Doj757085 Screw 2.4 X 38mm 08-27-2016 Cortex Self-Tap T8 Strdrv Rec - [id number] Wire K .045 X 5.5in 08-28-19 17 W/Wire Guide - [id number] Plate 2.4mm 2.7mm 08-27-2016 Va-Lock Mesh 5 X 12hls - Zmc463236 Wire 15 X 150mm 08-27-2016 Compression Thrd - [id number] 1.6mm Compression 08-27-2016 Wires 20mm Thread Length, 1500mm Total Length Screw 2.4 X 18mm Moraima 017 Ang Lock Strdrv - [id number] Screw 2.4 X 20mm Moraima 017 Ang Lock Strdrv - Sjz093773 Screw 2.4 X 22mm Moraima 017 Ang Lock Strdrv - [id number] Hemostat 8 X 12.5cm 11-04-19 17 X 10mm Surgifoam Gelatin Sponge - [id number] Screw 2.5 X 4mm Ti 7 Schanz 14mm Thrd Body - Glo4888590 Hemostat 2 X 14in 12-03-2016 Surgicel - [id number] Hemostat 8 X 6.25cm 05-25-19 18 X 10mm Surgifoam Gelatin Sponge - [id number] Screw 2 X 10mm Cross 018 Pin Locking - [id number] Screw 2 X 14mm Cross 018 Pin Locking - [id number] Plate 11hl Str Recon 018 - [id number] Bone Infuse Bone 11-03-2016 Graft Sm - [id number] Bone Infuse Bone 05-25-2017 Graft Xsm - [id number] Cement Bone 12-24-2016 Radiopaque Simplex P Single Dose - [id number] Tube Sz8 Trach 08-26-2016 Cuffed - Bkr134659 Tube 22fr Feeding 08-26-2016 Gastrostomy Junior - Cym217304 Screw 2.4 X 32mm Va 08-28-19 17 Lock Self-Tap Strdrv Rec - Oze905063 Screw 2.4 X 44mm Va 08-28-19 17 Lock Self-Tap Strdrv Rec - Wfv128715 Screw 2.4 X 36mm 08-27-2016 Cortex Self-Tap T8 Strdrv Rec - [id number] Screw 2.4 X 38mm 08-27-2016 Cortex Self-Tap T8 Strdrv Rec - [id number] Wire K .045 X 5.5in 08-28-19 17 W/Wire Guide - [id number] Plate 2.4mm 2.7mm 08-27-2016 Va-Lock Mesh 5 X 12hls - [id number] Wire 15 X 150mm 08-27-2016 Compression Thrd - [id number] 1.6mm Compression 08-27-2016 Wires 20mm Thread Length, 1500mm Total Length Screw 2.4 X 18mm Moraima 017 Ang Lock Strdrv - [id number] Screw 2.4 X 20mm Moraima 017 Ang Lock Strdrv - [id number] Screw 2.4 X 22mm Moraima 017 Ang Lock Strdrv - [id number] Hemostat 8 X 12.5cm 11-04-19 17 X 10mm Surgifoam Gelatin Sponge - [id number] Screw 2.5 X 4mm Ti 7 Schanz 14mm Thrd Body - [id number] Hemostat 2 X 14in 12-03-2016 Surgicel - [id number] Hemostat 8 X 6.25cm 05-25-19 18 X 10mm Surgifoam Gelatin Sponge - [id number] Screw 2 X 10mm Cross 018 Pin Locking - [id number] Screw 2 X 14mm Cross 018 Pin Locking - [id number] Plate 11hl Str Recon 018 - [id number] Bone Infuse Bone 11-03-2016 Graft Sm - [id number] Cement Bone 12-24-2016 Radiopaque Simplex P Single Dose - [id number] Tube Sz8 Trach 08-26-2016 Cuffed - Sax368980 Tube 22fr Feeding 08-26-2016 Gastrostomy Junior - Jic109066 Screw 2.4 X 32mm Va 08-28-19 17 Lock Self-Tap Strdrv Rec - [id number] Screw 2.4 X 44mm Va 08-28-19 17 Lock Self-Tap Strdrv Rec - Phl760066 Screw 2.4 X 36mm 08-27-2016 Cortex Self-Tap T8 Strdrv Rec - Yrz454805 Screw 2.4 X 38mm 08-27-2016 Cortex Self-Tap T8 Strdrv Rec - [id number] Wire K .045 X 5.5in 08-28-19 17 W/Wire Guide - [id number] Plate 2.4mm 2.7mm 08-27-2016 Va-Lock Mesh 5 X 12hls - [id number] Wire 15 X 150mm 08-27-2016 Compression Thrd - [id number] 1.6mm Compression 08-27-2016 Wires 20mm Thread Length, 1500mm Total Length Screw 2.4 X 18mm Moraima 017 Ang Lock Strdrv - [id number] Screw 2.4 X 20mm Moraima 017 Ang Lock Strdrv - [id number] Screw 2.4 X 22mm Moraima 017 Ang Lock Strdrv - [id number] Hemostat 8 X 12.5cm 11-04-19 17 X 10mm Surgifoam Gelatin Sponge - [id number] Screw 2.5 X 4mm Ti 7 Schanz 14mm Thrd Body - Mkq6281117 Hemostat 2 X 14in 12-03-2016 Surgicel - [id number] Bone Infuse Bone 11-03-2016 Graft Sm - Sfg9888096 Tube Sz8 Trach 08-26-2016 Cuffed - Iej062680 Tube 22fr Feeding 08-26-2016 Gastrostomy Junior - Scc927679 Screw 2.4 X 32mm Va 08-28-19 17 Lock Self-Tap Strdrv Rec - [id number] Screw 2.4 X 44mm Va 08-28-19 17 Lock Self-Tap Strdrv Rec - [id number] Screw 2.4 X 36mm 08-27-2016 Cortex Self-Tap T8 Strdrv Rec - [id number] Screw 2.4 X 38mm 08-27-2016 Cortex Self-Tap T8 Strdrv Rec - Lca088909 Wire K .045 X 5.5in 08-28-19 17 W/Wire Guide - [id number] Plate 2.4mm 2.7mm 08-27-2016 Va-Lock Mesh 5 X 12hls - [id number] Wire 15 X 150mm 08-27-2016 Compression Thrd - [id number] 1.6mm Compression 08-27-2016 Wires 20mm Thread Length, 1500mm Total Length Screw 2.4 X 18mm Moraima 017 Ang Lock Strdrv - [id number] Screw 2.4 X 20mm Moraima 017 Ang Lock Strdrv - [id number] Screw 2.4 X 22mm Moraima 017 Ang Lock Strdrv - [id number] Hemostat 8 X 12.5cm 11-04-19 17 X 10mm Surgifoam Gelatin Sponge - Bnb7082666 Screw 2.5 X 4mm Ti 7 Schanz 14mm Thrd Body - [id number] Hemostat 2 X 14in 12-03-2016 Surgicel - [id number] Bone Infuse Bone 11-03-2016 Graft Sm - [id number] Cement Bone 12-24-2016 Radiopaque Simplex P Single Dose - [id number] Tube Sz8 Trach 08-26-2016 Cuffed - Aol138942 Tube 22fr Feeding 08-26-2016 Gastrostomy Junior - Gbg209979 Screw 2.4 X 32mm Va 08-28-19 17 Lock Self-Tap Strdrv Rec - [id number] Screw 2.4 X 44mm Va 08-28-19 17 Lock Self-Tap Strdrv Rec - [id number] Screw 2.4 X 36mm 08-27-2016 Cortex Self-Tap T8 Strdrv Rec - [id number] Screw 2.4 X 38mm 08-27-2016 Cortex Self-Tap T8 Strdrv Rec - [id number] Wire K .045 X 5.5in 08-28-19 17 W/Wire Guide - [id number] Plate 2.4mm 2.7mm 08-27-2016 Va-Lock Mesh 5 X 12hls - [id number] Wire 15 X 150mm 08-27-2016 Compression Thrd - [id number] 1.6mm Compression 08-27-2016 Wires 20mm Thread Length, 1500mm Total Length Screw 2.4 X 18mm Moraima 017 Ang Lock Strdrv - [id number] Screw 2.4 X 20mm Moraima 017 Ang Lock Strdrv - [id number] Screw 2.4 X 22mm Moraima 017 Ang Lock Strdrv - [id number] Hemostat 8 X 12.5cm 11-04-19 17 X 10mm Surgifoam Gelatin Sponge - [id number] Screw 2.5 X 4mm Ti 7 Schanz 14mm Thrd Body - [id number] Hemostat 2 X 14in 12-03-2016 Surgicel - [id number] Bone Infuse Bone 11-03-2016 Graft Sm - [id number] Cement Bone 12-24-2016 Radiopaque Simplex P Single Dose - [id number] Tube Sz8 Trach 08-26-2016 Cuffed - Dtq740797 Tube 22fr Feeding 08-26-2016 Gastrostomy Junior - Zdw855966 Screw 2.4 X 32mm Va 08-28-19 17 Lock Self-Tap Strdrv Rec - [id number] Screw 2.4 X 44mm Va 08-28-19 17 Lock Self-Tap Strdrv Rec - [id number] Screw 2.4 X 36mm 08-27-2016 Cortex Self-Tap T8 Strdrv Rec - [id number] Screw 2.4 X 38mm 08-27-2016 Cortex Self-Tap T8 Strdrv Rec - [id number] Wire K .045 X 5.5in 08-28-19 17 W/Wire Guide - [id number] Plate 2.4mm 2.7mm 08-27-2016 Va-Lock Mesh 5 X 12hls - [id number] Wire 15 X 150mm 08-27-2016 Compression Thrd - [id number] 1.6mm Compression 08-27-2016 Wires 20mm Thread Length, 1500mm Total Length Screw 2.4 X 18mm Moraima 017 Ang Lock Strdrv - [id number] Screw 2.4 X 20mm Moraima 017 Ang Lock Strdrv - [id number] Screw 2.4 X 22mm Moraima 017 Ang Lock Strdrv - [id number] Hemostat 8 X 12.5cm 11-04-19 17 X 10mm Surgifoam Gelatin Sponge - Jvr1234531 Screw 2.5 X 4mm Ti 7 Schanz 14mm Thrd Body - [id number] Hemostat 2 X 14in 12-03-2016 Surgicel - [id number] Bone Infuse Bone 11-03-2016 Graft Sm - [id number] Bone Infuse Bone 05-25-2017 Graft Xsm - [id number] Cement Bone 12-24-2016 Radiopaque Simplex P Single Dose - [id number] Tube Sz8 Trach 08-26-2016 Cuffed - [id number] Tube 22fr Feeding 08-26-2016 Gastrostomy Junior - Pqj726149 Screw 2.4 X 32mm Va 08-28-19 17 Lock Self-Tap Strdrv Rec - [id number] Screw 2.4 X 44mm Va 08-28-19 17 Lock Self-Tap Strdrv Rec - [id number] Screw 2.4 X 36mm 08-27-2016 Cortex Self-Tap T8 Strdrv Rec - Feu339053 Screw 2.4 X 38mm 08-27-2016 Cortex Self-Tap T8 Strdrv Rec - [id number] Wire K .045 X 5.5in 08-28-19 17 W/Wire Guide - [id number] Plate 2.4mm 2.7mm 08-27-2016 Va-Lock Mesh 5 X 12hls - [id number] Wire 15 X 150mm 08-27-2016 Compression Thrd - [id number] 1.6mm Compression 08-27-2016 Wires 20mm Thread Length, 1500mm Total Length Screw 2.4 X 18mm Moraima 017 Ang Lock Strdrv - [id number] Screw 2.4 X 20mm Moraima 017 Ang Lock Strdrv - [id number] Screw 2.4 X 22mm Moraima 017 Ang Lock Strdrv - [id number] Hemostat 8 X 12.5cm 11-04-19 17 X 10mm Surgifoam Gelatin Sponge - [id number] Screw 2.5 X 4mm Ti 7 Schanz 14mm Thrd Body - [id number] Hemostat 2 X 14in 12-03-2016 Surgicel - [id number] Hemostat 8 X 6.25cm 05-25-19 18 X 10mm Surgifoam Gelatin Sponge - [id number] Screw 2 X 10mm Cross 018 Pin Locking - [id number] Screw 2 X 14mm Cross 018 Pin Locking - [id number] Plate 11hl Str Recon 018 - [id number] Screw 2 X 12mm Mmf 8 Self-Drill - [id number] Bone Infuse Bone 11-03-2016 Graft Sm - Mvv2278018 Tube Sz8 Trach 08-26-2016 Cuffed - Qzx297660 Tube 22fr Feeding 08-26-2016 Gastrostomy Junior - [id number] Screw 2.4 X 32mm Va 08-28-19 17 Lock Self-Tap Strdrv Rec - [id number] Screw 2.4 X 44mm Va 08-28-19 17 Lock Self-Tap Strdrv Rec - [id number] Screw 2.4 X 36mm 08-27-2016 Cortex Self-Tap T8 Strdrv Rec - [id number] Screw 2.4 X 38mm 08-27-2016 Cortex Self-Tap T8 Strdrv Rec - [id number] Wire K .045 X 5.5in 08-28-19 17 W/Wire Guide - [id number] Plate 2.4mm 2.7mm 08-27-2016 Va-Lock Mesh 5 X 12hls - [id number] Wire 15 X 150mm 08-27-2016 Compression Thrd - [id number] 1.6mm Compression 08-27-2016 Wires 20mm Thread Length, 1500mm Total Length Screw 2.4 X 18mm [place] 017 Ang Lock Strdrv - [id number] Screw 2.4 X 20mm [place] 017 Ang Lock Strdrv - [id number] Screw 2.4 X 22mm [place] 017 Ang Lock Strdrv - [id number] Hemostat 8 X 12.5cm 11-04-19 17 X 10mm Surgifoam Gelatin Sponge - [id number] Screw 2.5 X 4mm Ti 7 Schanz 14mm Thrd Body - [id number] Hemostat 2 X 14in 12-03-2016 Surgicel - [id number] Bone Infuse Bone 11-03-2016 Graft Sm - [id number] Tube Sz8 Trach 08-26-2016 Cuffed - [id number] Tube 22fr Feeding 08-26-2016 Gastrostomy Junior - [id number] Screw 2.4 X 32mm Va 08-28-19 17 Lock Self-Tap Strdrv Rec - [id number] Screw 2.4 X 44mm Va 08-28-19 17 Lock Self-Tap Strdrv Rec - [id number] Screw 2.4 X 36mm 08-27-2016 Cortex Self-Tap T8 Strdrv Rec - [id number] Screw 2.4 X 38mm 08-27-2016 Cortex Self-Tap T8 Strdrv Rec - [id number] Wire K .045 X 5.5in 08-28-19 17 W/Wire Guide - [id number] Plate 2.4mm 2.7mm 08-27-2016 Va-Lock Mesh 5 X 12hls - [id number] Wire 15 X 150mm 08-27-2016 Compression Thrd - [id number] 1.6mm Compression 08-27-2016 Wires 20mm Thread Length, 1500mm Total Length Screw 2.4 X 18mm [place] 017 Ang Lock Strdrv - [id number] Screw 2.4 X 20mm [place] 017 Ang Lock Strdrv - [id number] Screw 2.4 X 22mm [place] 017 Ang Lock Strdrv - [id number] Hemostat 8 X 12.5cm 11-04-19 17 X 10mm Surgifoam Gelatin Sponge - [id number] Screw 2.5 X 4mm Ti 7 Schanz 14mm Thrd Body - [id number] Bone Infuse Bone 11-03-2016 Graft Sm - [id number] Tube Sz8 Trach 08-26-2016 Cuffed - [id number] Tube 22fr Feeding 08-26-2016 Gastrostomy Junior - [id number] Screw 2.4 X 32mm Va 08-28-19 17 Lock Self-Tap Strdrv Rec - [id number] Screw 2.4 X 44mm Va 08-28-19 17 Lock Self-Tap Strdrv Rec - [id number] Screw 2.4 X 36mm 08-27-2016 Cortex Self-Tap T8 Strdrv Rec - [id number] Screw 2.4 X 38mm 08-27-2016 Cortex Self-Tap T8 Strdrv Rec - [id number] Wire K .045 X 5.5in 08-28-19 17 W/Wire Guide - [id number] Plate 2.4mm 2.7mm 08-27-2016 Va-Lock Mesh 5 X 12hls - [id number] Wire 15 X 150mm 08-27-2016 Compression Thrd - [id number] 1.6mm Compression 08-27-2016 Wires 20mm Thread Length, 1500mm Total Length Screw 2.4 X 18mm [place] 017 Ang Lock Strdrv - [id number] Screw 2.4 X 20mm [place] 017 Ang Lock Strdrv - [id number] Screw 2.4 X 22mm [place] 017 Ang Lock Strdrv - [id number] Hemostat 8 X 12.5cm 11-04-19 17 X 10mm Surgifoam Gelatin Sponge - [id number] Screw 2.5 X 4mm Ti 7 Schanz 14mm Thrd Body - [id number] Hemostat 2 X 14in 12-03-2016 Surgicel - [id number] Bone Infuse Bone 11-03-2016 Graft Sm - [id number] Tube Sz8 Trach 08-26-2016 Cuffed - [id number] Tube 22fr Feeding 08-26-2016 Gastrostomy Junior - [id number] Screw 2.4 X 32mm Va 08-28-19 17 Lock Self-Tap Strdrv Rec - [id number] Screw 2.4 X 44mm Va 08-28-19 17 Lock Self-Tap Strdrv Rec - [id number] Screw 2.4 X 36mm 08-27-2016 Cortex Self-Tap T8 Strdrv Rec - [id number] Screw 2.4 X 38mm 08-27-2016 Cortex Self-Tap T8 Strdrv Rec - [id number] Wire K .045 X 5.5in 08-28-19 17 W/Wire Guide - [id number] Plate 2.4mm 2.7mm 08-27-2016 Va-Lock Mesh 5 X 12hls - [id number] Wire 15 X 150mm 08-27-2016 Compression Thrd - [id number] 1.6mm Compression 08-27-2016 Wires 20mm Thread Length, 1500mm Total Length Screw 2.4 X 18mm [place] 017 Ang Lock Strdrv - [id number] Screw 2.4 X 20mm [place] 017 Ang Lock Strdrv - [id number] Screw 2.4 X 22mm [place] 017 Ang Lock Strdrv - [id number] Hemostat 8 X 12.5cm 11-04-19 17 X 10mm Surgifoam Gelatin Sponge - [id number] Screw 2.5 X 4mm Ti 7 Schanz 14mm Thrd Body - [id number] Hemostat 2 X 14in 12-03-2016 Surgicel - [id number] Bone Infuse Bone 11-03-2016 Graft Sm - [id number] Tube Sz8 Trach 08-26-2016 Cuffed - [id number] Tube 22fr Feeding 08-26-2016 Gastrostomy Junior - [id number] Screw 2.4 X 32mm Va 08-28-19 17 Lock Self-Tap Strdrv Rec - [id number] Screw 2.4 X 44mm Va 08-28-19 17 Lock Self-Tap Strdrv Rec - [id number] Screw 2.4 X 36mm 08-27-2016 Cortex Self-Tap T8 Strdrv Rec - [id number] Screw 2.4 X 38mm 08-27-2016 Cortex Self-Tap T8 Strdrv Rec - Ozs709579 Wire K .045 X 5.5in 08-28-19 17 W/Wire Guide - [id number] Plate 2.4mm 2.7mm 08-27-2016 Va-Lock Mesh 5 X 12hls - [id number] Wire 15 X 150mm 08-27-2016 Compression Thrd - [id number] 1.6mm Compression 08-27-2016 Wires 20mm Thread Length, 1500mm Total Length Screw 2.4 X 18mm [place] 017 Ang Lock Strdrv - [id number] Screw 2.4 X 20mm [place] 017 Ang Lock Strdrv - [id number] Screw 2.4 X 22mm [place] 017 Ang Lock Strdrv - [id number] Hemostat 8 X 12.5cm 11-04-19 17 X 10mm Surgifoam Gelatin Sponge - [id number] Screw 2.5 X 4mm Ti 7 Schanz 14mm Thrd Body - [id number] Wire 24ga Dental - 7 [id number] Plate 11hl Str Recon 017 - [id number] Screw 2 X 12mm Mmf 7 Self-Drill - [id number] Screw 2 X 8mm Cross 11-04-19 17 Pin Locking - [id number] Screw 2 X 10mm Cross 017 Pin Locking - [id number] Screw 2 X 12mm Cross 017 Pin Locking - [id number] Bone Infuse Bone 11-03-2016 Graft Sm - [id number] Cement Bone 12-24-2016 Radiopaque Simplex P Single Dose - [id number] Tube Sz8 Trach 08-26-2016 Cuffed - [id number] Tube 22fr Feeding 08-26-2016 Gastrostomy Junior - Jbq239271 Screw 2.4 X 32mm Va 08-28-19 17 Lock Self-Tap Strdrv Rec - [id number] Screw 2.4 X 44mm Va 08-28-19 17 Lock Self-Tap Strdrv Rec - Hql153566 Screw 2.4 X 36mm 08-27-2016 Cortex Self-Tap T8 Strdrv Rec - [id number] Screw 2.4 X 38mm 08-27-2016 Cortex Self-Tap T8 Strdrv Rec - [id number] Wire K .045 X 5.5in 08-28-19 17 W/Wire Guide - [id number] Plate 2.4mm 2.7mm 08-27-2016 Va-Lock Mesh 5 X 12hls - [id number] Wire 15 X 150mm 08-27-2016 Compression Thrd - [id number] 1.6mm Compression 08-27-2016 Wires 20mm Thread Length, 1500mm Total Length Screw 2.4 X 18mm [place] 017 Ang Lock Strdrv - [id number] Screw 2.4 X 20mm [place] 017 Ang Lock Strdrv - [id number] Screw 2.4 X 22mm [place] 017 Ang Lock Strdrv - [id number] Hemostat 8 X 12.5cm 11-04-19 17 X 10mm Surgifoam Gelatin Sponge - [id number] Screw 2.5 X 4mm Ti 7 Schanz 14mm Thrd Body - [id number] Hemostat 2 X 14in 12-03-2016 Surgicel - [id number] Bone Infuse Bone 11-03-2016 Graft Sm - Vcf9003539 Cement Bone 12-24-2016 Radiopaque Simplex P Single Dose - [id number] Tube Sz8 Trach 08-26-2016 Cuffed - Vci082292 Tube 22fr Feeding 08-26-2016 Gastrostomy Junior - [id number] Screw 2.4 X 32mm Va 08-28-19 17 Lock Self-Tap Strdrv Rec - [id number] Screw 2.4 X 44mm Va 08-28-19 17 Lock Self-Tap Strdrv Rec - Nvq002838 Screw 2.4 X 36mm 08-27-2016 Cortex Self-Tap T8 Strdrv Rec - [id number] Screw 2.4 X 38mm 08-27-2016 Cortex Self-Tap T8 Strdrv Rec - [id number] Wire K .045 X 5.5in 08-28-19 17 W/Wire Guide - [id number] Plate 2.4mm 2.7mm 08-27-2016 Va-Lock Mesh 5 X 12hls - [id number] Wire 15 X 150mm 08-27-2016 Compression Thrd - [id number] 1.6mm Compression 08-27-2016 Wires 20mm Thread Length, 1500mm Total Length Screw 2.4 X 18mm [place] 017 Ang Lock Strdrv - [id number] Screw 2.4 X 20mm [place] 017 Ang Lock Strdrv - Ibc549075 Screw 2.4 X 22mm [place] 017 Ang Lock Strdrv - [id number] Hemostat 8 X 12.5cm 11-04-19 17 X 10mm Surgifoam Gelatin Sponge - Anj7756456 Screw 2.5 X 4mm Ti 7 Schanz 14mm Thrd Body - [id number] Hemostat 2 X 14in 12-03-2016 Surgicel - [id number] Bone Infuse Bone 11-03-2016 Graft Sm - [id number] Cement Bone 12-24-2016 Radiopaque Simplex P Single Dose - [id number] Tube Sz8 Trach 08-26-2016 Cuffed - [id number] Tube 22fr Feeding 08-26-2016 Gastrostomy Junior - Dmg061658 Screw 2.4 X 32mm Va 08-28-19 17 Lock Self-Tap Strdrv Rec - [id number] Screw 2.4 X 44mm Va 08-28-19 17 Lock Self-Tap Strdrv Rec - [id number] Screw 2.4 X 36mm 08-27-2016 Cortex Self-Tap T8 Strdrv Rec - Gmu028661 Screw 2.4 X 38mm 08-27-2016 Cortex Self-Tap T8 Strdrv Rec - Kpz018196 Wire K .045 X 5.5in 08-28-19 17 W/Wire Guide - [id number] Plate 2.4mm 2.7mm 08-27-2016 Va-Lock Mesh 5 X 12hls - Ooc073399 Wire 15 X 150mm 08-27-2016 Compression Thrd - [id number] 1.6mm Compression 08-27-2016 Wires 20mm Thread Length, 1500mm Total Length Screw 2.4 X 18mm [place] 017 Ang Lock Strdrv - [id number] Screw 2.4 X 20mm [place] 017 Ang Lock Strdrv - [id number] Screw 2.4 X 22mm [place] 017 Ang Lock Strdrv - [id number] Hemostat 8 X 12.5cm 11-04-19 17 X 10mm Surgifoam Gelatin Sponge - [id number] Screw 2.5 X 4mm Ti 7 Schanz 14mm Thrd Body - [id number] Hemostat 2 X 14in 12-03-2016 Surgicel - [id number] Bone Infuse Bone 11-03-2016 Graft Sm - [id number] Cement Bone 12-24-2016 Radiopaque Simplex P Single Dose - [id number] Tube Sz8 Trach 08-26-2016 Cuffed - [id number] Tube 22fr Feeding 08-26-2016 Gastrostomy Junior - Vid541799 Screw 2.4 X 32mm Va 08-28-19 17 Lock Self-Tap Strdrv Rec - Nzy500451 Screw 2.4 X 44mm Va 08-28-19 17 Lock Self-Tap Strdrv Rec - Sqm925743 Screw 2.4 X 36mm 08-27-2016 Cortex Self-Tap T8 Strdrv Rec - Cqs493781 Screw 2.4 X 38mm 08-27-2016 Cortex Self-Tap T8 Strdrv Rec - [id number] Wire K .045 X 5.5in 08-28-19 17 W/Wire Guide - [id number] Plate 2.4mm 2.7mm 08-27-2016 Va-Lock Mesh 5 X 12hls - [id number] Wire 15 X 150mm 08-27-2016 Compression Thrd - [id number] 1.6mm Compression 08-27-2016 Wires 20mm Thread Length, 1500mm Total Length Screw 2.4 X 18mm [place] 017 Ang Lock Strdrv - [id number] Screw 2.4 X 20mm [place] 017 Ang Lock Strdrv - Bnk078419 Screw 2.4 X 22mm [place] 017 Ang Lock Strdrv - Yiq043763 Hemostat 8 X 12.5cm 11-04-19 17 X 10mm Surgifoam Gelatin Sponge - Ohm8123835 Screw 2.5 X 4mm Ti 7 Schanz 14mm Thrd Body - Acg6032280 Hemostat 2 X 14in 12-03-2016 Surgicel - [id number] Bone Infuse Bone 11-03-2016 Graft Sm - Ijf0357516 Cement Bone 12-24-2016 Radiopaque Simplex P Single Dose - [id number] Tube Sz8 Trach 08-26-2016 Cuffed - [id number] Tube 22fr Feeding 08-26-2016 Gastrostomy Junior - Bkg353041 Screw 2.4 X 32mm Va 08-28-19 17 Lock Self-Tap Strdrv Rec - Dnr921460 Screw 2.4 X 44mm Va 08-28-19 17 Lock Self-Tap Strdrv Rec - [id number] Screw 2.4 X 36mm 08-27-2016 Cortex Self-Tap T8 Strdrv Rec - [id number] Screw 2.4 X 38mm 08-27-2016 Cortex Self-Tap T8 Strdrv Rec - Ocg647581 Wire K .045 X 5.5in 08-28-19 17 W/Wire Guide - [id number] Plate 2.4mm 2.7mm 08-27-2016 Va-Lock Mesh 5 X 12hls - [id number] Wire 15 X 150mm 08-27-2016 Compression Thrd - [id number] 1.6mm Compression 08-27-2016 Wires 20mm Thread Length, 1500mm Total Length Screw 2.4 X 18mm [place] 017 Ang Lock Strdrv - Atj067344 Screw 2.4 X 20mm [place] 017 Ang Lock Strdrv - Rzx915991 Screw 2.4 X 22mm [place] 017 Ang Lock Strdrv - [id number] Hemostat 8 X 12.5cm 11-04-19 17 X 10mm Surgifoam Gelatin Sponge - [id number] Screw 2.5 X 4mm Ti 7 Schanz 14mm Thrd Body - [id number] Hemostat 2 X 14in 12-03-2016 Surgicel - [id number] Bone Infuse Bone 11-03-2016 Graft Sm - [id number] Cement Bone 12-24-2016 Radiopaque Simplex P Single Dose - [id number] Tube Sz8 Trach 08-26-2016 Cuffed - Gai371748 Tube 22fr Feeding 08-26-2016 Gastrostomy Junior - Psu394219 Screw 2.4 X 32mm Va 08-28-19 17 Lock Self-Tap Strdrv Rec - [id number] Screw 2.4 X 44mm Va 08-28-19 17 Lock Self-Tap Strdrv Rec - Ejn668844 Screw 2.4 X 36mm 08-27-2016 Cortex Self-Tap T8 Strdrv Rec - Cew241657 Screw 2.4 X 38mm 08-27-2016 Cortex Self-Tap T8 Strdrv Rec - [id number] Wire K .045 X 5.5in 08-28-19 17 W/Wire Guide - [id number] Plate 2.4mm 2.7mm 08-27-2016 Va-Lock Mesh 5 X 12hls - Zbo266102 Wire 15 X 150mm 08-27-2016 Compression Thrd - [id number] 1.6mm Compression 08-27-2016 Wires 20mm Thread Length, 1500mm Total Length Screw 2.4 X 18mm [place] 017 Ang Lock Strdrv - Gua994584 Screw 2.4 X 20mm [place] 017 Ang Lock Strdrv - Vgw874209 Screw 2.4 X 22mm [place] 017 Ang Lock Strdrv - Gwu462989 Hemostat 8 X 12.5cm 11-04-19 17 X 10mm Surgifoam Gelatin Sponge - Kuj7438656 Screw 2.5 X 4mm Ti 7 Schanz 14mm Thrd Body - Ekl2392522 Hemostat 2 X 14in 12-03-2016 Surgicel - [id number] Bone Infuse Bone 11-03-2016 Graft Sm - Ifn0631833 Cement Bone 12-24-2016 Radiopaque Simplex P Single Dose - [id number] Tube Sz8 Trach 08-26-2016 Cuffed - [id number] Tube 22fr Feeding 08-26-2016 Gastrostomy Junior - Usb604748 Screw 2.4 X 32mm Va 08-28-19 17 Lock Self-Tap Strdrv Rec - Qst987565 Screw 2.4 X 44mm Va 08-28-19 17 Lock Self-Tap Strdrv Rec - Jbc411254 Screw 2.4 X 36mm 08-27-2016 Cortex Self-Tap T8 Strdrv Rec - Kdq893530 Screw 2.4 X 38mm 08-27-2016 Cortex Self-Tap T8 Strdrv Rec - Dpm009052 Wire K .045 X 5.5in 08-28-19 17 W/Wire Guide - [id number] Plate 2.4mm 2.7mm 08-27-2016 Va-Lock Mesh 5 X 12hls - Ihn241356 Wire 15 X 150mm 08-27-2016 Compression Thrd - [id number] 1.6mm Compression 08-27-2016 Wires 20mm Thread Length, 1500mm Total Length Screw 2.4 X 18mm [place] 017 Ang Lock Strdrv - [id number] Screw 2.4 X 20mm [place] 017 Ang Lock Strdrv - Lqb839380 Screw 2.4 X 22mm [place] 017 Ang Lock Strdrv - [id number] Hemostat 8 X 12.5cm 11-04-19 17 X 10mm Surgifoam Gelatin Sponge - Jlw0905444 Screw 2.5 X 4mm Ti 7 Schanz 14mm Thrd Body - [id number] Hemostat 2 X 14in 12-03-2016 Surgicel - [id number] Bone Infuse Bone 11-03-2016 Graft Sm - [id number] Cement Bone 12-24-2016 Radiopaque Simplex P Single Dose - Icn4013552 Tube Sz8 Trach 08-26-2016 Cuffed - Tgp292397 Tube 22fr Feeding 08-26-2016 Gastrostomy Junior - Azd129679 Screw 2.4 X 32mm Va 08-28-19 17 Lock Self-Tap Strdrv Rec - [id number] Screw 2.4 X 44mm Va 08-28-19 17 Lock Self-Tap Strdrv Rec - Lws406960 Screw 2.4 X 36mm 08-27-2016 Cortex Self-Tap T8 Strdrv Rec - Jnb273940 Screw 2.4 X 38mm 08-27-2016 Cortex Self-Tap T8 Strdrv Rec - [id number] Wire K .045 X 5.5in 08-28-19 17 W/Wire Guide - [id number] Plate 2.4mm 2.7mm 08-27-2016 Va-Lock Mesh 5 X 12hls - Myl091363 Wire 15 X 150mm 08-27-2016 Compression Thrd - [id number] 1.6mm Compression 08-27-2016 Wires 20mm Thread Length, 1500mm Total Length Screw 2.4 X 18mm [place] 017 Ang Lock Strdrv - Vgw950516 Screw 2.4 X 20mm [place] 017 Ang Lock Strdrv - Irm345272 Screw 2.4 X 22mm [place] 017 Ang Lock Strdrv - [id number] Hemostat 8 X 12.5cm 11-04-19 17 X 10mm Surgifoam Gelatin Sponge - [id number] Screw 2.5 X 4mm Ti 7 Schanz 14mm Thrd Body - Orq4354790 Hemostat 2 X 14in 12-03-2016 Surgicel - [id number] Bone Infuse Bone 11-03-2016 Graft Sm - [id number] Cement Bone 12-24-2016 Radiopaque Simplex P Single Dose - Zfq3994091 Tube Sz8 Trach 08-26-2016 Cuffed - Fus903628 Tube 22fr Feeding 08-26-2016 Gastrostomy Junior - Hbq180109 Screw 2.4 X 32mm Va 08-28-19 17 Lock Self-Tap Strdrv Rec - Fcq105837 Screw 2.4 X 44mm Va 08-28-19 17 Lock Self-Tap Strdrv Rec - Tcw899625 Screw 2.4 X 36mm 08-27-2016 Cortex Self-Tap T8 Strdrv Rec - [id number] Screw 2.4 X 38mm 08-27-2016 Cortex Self-Tap T8 Strdrv Rec - Ghw800907 Wire K .045 X 5.5in 08-28-19 17 W/Wire Guide - [id number] Plate 2.4mm 2.7mm 08-27-2016 Va-Lock Mesh 5 X 12hls - [id number] Wire 15 X 150mm 08-27-2016 Compression Thrd - [id number] 1.6mm Compression 08-27-2016 Wires 20mm Thread Length, 1500mm Total Length Screw 2.4 X 18mm [place] 017 Ang Lock Strdrv - Feo296457 Screw 2.4 X 20mm [place] 017 Ang Lock Strdrv - Ukv206827 Screw 2.4 X 22mm [place] 017 Ang Lock Strdrv - [id number] Hemostat 8 X 12.5cm 11-04-19 17 X 10mm Surgifoam Gelatin Sponge - [id number] Screw 2.5 X 4mm Ti 7 Schanz 14mm Thrd Body - Pqv3320476 Hemostat 2 X 14in 12-03-2016 Surgicel - Lvo1578205 Bone Infuse Bone 11-03-2016 Graft Sm - [id number] Cement Bone 12-24-2016 Radiopaque Simplex P Single Dose - [id number] Tube Sz8 Trach 08-26-2016 Cuffed - Dfs936578 Tube 22fr Feeding 08-26-2016 Gastrostomy Junior - Cdi824477 Screw 2.4 X 32mm Va 08-28-19 17 Lock Self-Tap Strdrv Rec - Yxr184118 Screw 2.4 X 44mm Va 08-28-19 17 Lock Self-Tap Strdrv Rec - Rgv990880 Screw 2.4 X 36mm 08-27-2016 Cortex Self-Tap T8 Strdrv Rec - Gtd241465 Screw 2.4 X 38mm 08-27-2016 Cortex Self-Tap T8 Strdrv Rec - [id number] Wire K .045 X 5.5in 08-28-19 17 W/Wire Guide - [id number] Plate 2.4mm 2.7mm 08-27-2016 Va-Lock Mesh 5 X 12hls - Mvd308780 Wire 15 X 150mm 08-27-2016 Compression Thrd - [id number] 1.6mm Compression 08-27-2016 Wires 20mm Thread Length, 1500mm Total Length Screw 2.4 X 18mm [place] 017 Ang Lock Strdrv - [id number] Screw 2.4 X 20mm [place] 017 Ang Lock Strdrv - [id number] Screw 2.4 X 22mm [place] 017 Ang Lock Strdrv - Cfw788897 Hemostat 8 X 12.5cm 11-04-19 17 X 10mm Surgifoam Gelatin Sponge - [id number] Screw 2.5 X 4mm Ti 7 Schanz 14mm Thrd Body - [id number] Hemostat 2 X 14in 12-03-2016 Surgicel - [id number] Bone Infuse Bone 11-03-2016 Graft Sm - [id number] Bone Infuse Bone 05-25-2017 Graft Xsm - [id number] Cement Bone 12-24-2016 Radiopaque Simplex P Single Dose - [id number] Tube Sz8 Trach 08-26-2016 Cuffed - [id number] Tube 22fr Feeding 08-26-2016 Gastrostomy Junior - Amp515034 Screw 2.4 X 32mm Va 08-28-19 17 Lock Self-Tap Strdrv Rec - [id number] Screw 2.4 X 44mm Va 08-28-19 17 Lock Self-Tap Strdrv Rec - Dcz639925 Screw 2.4 X 36mm 08-27-2016 Cortex Self-Tap T8 Strdrv Rec - Tle265769 Screw 2.4 X 38mm 08-27-2016 Cortex Self-Tap T8 Strdrv Rec - [id number] Wire K .045 X 5.5in 08-28-19 17 W/Wire Guide - [id number] Plate 2.4mm 2.7mm 08-27-2016 Va-Lock Mesh 5 X 12hls - [id number] Wire 15 X 150mm 08-27-2016 Compression Thrd - [id number] 1.6mm Compression 08-27-2016 Wires 20mm Thread Length, 1500mm Total Length Screw 2.4 X 18mm [place] 017 Ang Lock Strdrv - Hap372312 Screw 2.4 X 20mm [place] 017 Ang Lock Strdrv - Rwe187121 Screw 2.4 X 22mm [place] 017 Ang Lock Strdrv - [id number] Hemostat 8 X 12.5cm 11-04-19 17 X 10mm Surgifoam Gelatin Sponge - [id number] Screw 2.5 X 4mm Ti 7 Schanz 14mm Thrd Body - Jkc3303200 Hemostat 2 X 14in 12-03-2016 Surgicel - Eup7789078 Hemostat 8 X 6.25cm 05-25-19 18 X 10mm Surgifoam Gelatin Sponge - [id number] Screw 2 X 10mm Cross 018 Pin Locking - [id number] Screw 2 X 14mm Cross 018 Pin Locking - [id number] Plate 11hl Str Recon 018 - [id number] Bone Infuse Bone 11-03-2016 Graft Sm - Ece3813321 Cement Bone 12-24-2016 Radiopaque Simplex P Single Dose - [id number] Tube Sz8 Trach 08-26-2016 Cuffed - [id number] Tube 22fr Feeding 08-26-2016 Gastrostomy Junior - Zaf474211 Screw 2.4 X 32mm Va 08-28-19 17 Lock Self-Tap Strdrv Rec - Kxn939466 Screw 2.4 X 44mm Va 08-28-19 17 Lock Self-Tap Strdrv Rec - [id number] Screw 2.4 X 36mm 08-27-2016 Cortex Self-Tap T8 Strdrv Rec - Epp921189 Screw 2.4 X 38mm 08-27-2016 Cortex Self-Tap T8 Strdrv Rec - [id number] Wire K .045 X 5.5in 08-28-19 17 W/Wire Guide - [id number] Plate 2.4mm 2.7mm 08-27-2016 Va-Lock Mesh 5 X 12hls - Hlv979996 Wire 15 X 150mm 08-27-2016 Compression Thrd - [id number] 1.6mm Compression 08-27-2016 Wires 20mm Thread Length, 1500mm Total Length Screw 2.4 X 18mm [place] 017 Ang Lock Strdrv - [id number] Screw 2.4 X 20mm [place] 017 Ang Lock Strdrv - [id number] Bone Infuse Bone 11-03-2016 Graft Sm - [id number] Hemostat 8 X 12.5cm 11-04-19 17 X 10mm Surgifoam Gelatin Sponge - [id number] Screw 2.5 X 4mm Ti 7 Schanz 14mm Thrd Body - Kyz4594716 Hemostat 2 X 14in 12-03-2016 Surgicel - [id number] Bone Infuse Bone 11-03-2016 Graft Sm - Wtj4551289 Cement Bone 12-24-2016 Radiopaque Simplex P Single Dose - Ezn5172500 Tube Sz8 Trach 08-26-2016 Cuffed - Gwy216524 Tube 22fr Feeding 08-26-2016 Gastrostomy Junior - Jir981369 Screw 2.4 X 32mm Va 08-28-19 17 Lock Self-Tap Strdrv Rec - Ioi754221 Screw 2.4 X 44mm Va 08-28-19 17 Lock Self-Tap Strdrv Rec - Hzo228160 Screw 2.4 X 36mm 08-27-2016 Cortex Self-Tap T8 Strdrv Rec - Oxf075972 Screw 2.4 X 38mm 08-27-2016 Cortex Self-Tap T8 Strdrv Rec - Rne143540 Wire K .045 X 5.5in 08-28-19 17 W/Wire Guide - [id number] Plate 2.4mm 2.7mm 08-27-2016 Va-Lock Mesh 5 X 12hls - Rra463513 Wire 15 X 150mm 08-27-2016 Compression Thrd - [id number] 1.6mm Compression 08-27-2016 Wires 20mm Thread Length, 1500mm Total Length Screw 2.4 X 18mm [place] 017 Ang Lock Strdrv - [id number] Screw 2.4 X 20mm [place] 017 Ang Lock Strdrv - Oyq486128 Screw 2.4 X 22mm [place] 017 Ang Lock Strdrv - Mzv869636 Hemostat 8 X 12.5cm 11-04-19 17 X 10mm Surgifoam Gelatin Sponge - Rdf5189542 Screw 2.5 X 4mm Ti 7 Schanz 14mm Thrd Body - [id number] Hemostat 2 X 14in 12-03-2016 Surgicel - [id number] Bone Infuse Bone 11-03-2016 Graft Sm - Ivg0332762 Cement Bone 12-24-2016 Radiopaque Simplex P Single Dose - [id number] Tube Sz8 Trach 08-26-2016 Cuffed - Lnw666364 Tube 22fr Feeding 08-26-2016 Gastrostomy Junior - Ovn496534 Screw 2.4 X 32mm Va 08-28-19 17 Lock Self-Tap Strdrv Rec - Xav595372 Screw 2.4 X 44mm Va 08-28-19 17 Lock Self-Tap Strdrv Rec - Ptn193655 Screw 2.4 X 36mm 08-27-2016 Cortex Self-Tap T8 Strdrv Rec - Tyz900920 Screw 2.4 X 38mm 08-27-2016 Cortex Self-Tap T8 Strdrv Rec - [id number] Wire K .045 X 5.5in 08-28-19 17 W/Wire Guide - [id number] Plate 2.4mm 2.7mm 08-27-2016 Va-Lock Mesh 5 X 12hls - [id number] Wire 15 X 150mm 08-27-2016 Compression Thrd - [id number] 1.6mm Compression 08-27-2016 Wires 20mm Thread Length, 1500mm Total Length Screw 2.4 X 18mm [place] 017 Ang Lock Strdrv - Wrv024196 Screw 2.4 X 20mm [place] 017 Ang Lock Strdrv - Trh108733 Screw 2.4 X 22mm [place] 017 Ang Lock Strdrv - Cko166843 Hemostat 8 X 12.5cm 11-04-19 17 X 10mm Surgifoam Gelatin Sponge - [id number] Screw 2.5 X 4mm Ti 7 Schanz 14mm Thrd Body - [id number] Hemostat 2 X 14in 12-03-2016 Surgicel - Yrv1173140 Bone Infuse Bone 11-03-2016 Graft Sm - Ibw3027914 Cement Bone 12-24-2016 Radiopaque Simplex P Single Dose - [id number] Tube Sz8 Trach 08-26-2016 Cuffed - Tan461546 Tube 22fr Feeding 08-26-2016 Gastrostomy Junior - Kdz282343 Screw 2.4 X 32mm Va 08-28-19 17 Lock Self-Tap Strdrv Rec - Gvi376540 Screw 2.4 X 44mm Va 08-28-19 17 Lock Self-Tap Strdrv Rec - [id number] Screw 2.4 X 36mm 08-27-2016 Cortex Self-Tap T8 Strdrv Rec - [id number] Screw 2.4 X 38mm 08-27-2016 Cortex Self-Tap T8 Strdrv Rec - [id number] Wire K .045 X 5.5in 08-28-19 17 W/Wire Guide - [id number] Plate 2.4mm 2.7mm 08-27-2016 Va-Lock Mesh 5 X 12hls - Kpv292027 Wire 15 X 150mm 08-27-2016 Compression Thrd - [id number] 1.6mm Compression 08-27-2016 Wires 20mm Thread Length, 1500mm Total Length Screw 2.4 X 18mm [place] 017 Ang Lock Strdrv - Vsv204575 Screw 2.4 X 20mm [place] 017 Ang Lock Strdrv - Kzp043617 Screw 2.4 X 22mm [place] 017 Ang Lock Strdrv - [id number] Hemostat 8 X 12.5cm 11-04-19 17 X 10mm Surgifoam Gelatin Sponge - [id number] Screw 2.5 X 4mm Ti 7 Schanz 14mm Thrd Body - Hds7759575 Hemostat 2 X 14in 12-03-2016 Surgicel - [id number] Bone Infuse Bone 11-03-2016 Graft Sm - [id number] Bone Infuse Bone 05-25-2017 Graft Xsm - [id number] Cement Bone 12-24-2016 Radiopaque Simplex P Single Dose - [id number] Tube Sz8 Trach 08-26-2016 Cuffed - [id number] Tube 22fr Feeding 08-26-2016 Gastrostomy Junior - Pxq397316 Screw 2.4 X 32mm Va 08-28-19 17 Lock Self-Tap Strdrv Rec - [id number] Screw 2.4 X 44mm Va 08-28-19 17 Lock Self-Tap Strdrv Rec - [id number] Screw 2.4 X 36mm 08-27-2016 Cortex Self-Tap T8 Strdrv Rec - Qtd776286 Screw 2.4 X 38mm 08-27-2016 Cortex Self-Tap T8 Strdrv Rec - [id number] Wire K .045 X 5.5in 08-28-19 17 W/Wire Guide - [id number] Plate 2.4mm 2.7mm 08-27-2016 Va-Lock Mesh 5 X 12hls - [id number] Wire 15 X 150mm 08-27-2016 Compression Thrd - [id number] 1.6mm Compression 08-27-2016 Wires 20mm Thread Length, 1500mm Total Length Screw 2.4 X 18mm [place] 017 Ang Lock Strdrv - [id number] Screw 2.4 X 20mm [place] 017 Ang Lock Strdrv - [id number] Screw 2.4 X 22mm [place] 017 Ang Lock Strdrv - Ivv599679 Hemostat 8 X 12.5cm 11-04-19 17 X 10mm Surgifoam Gelatin Sponge - [id number] Screw 2.5 X 4mm Ti 7 Schanz 14mm Thrd Body - [id number] Hemostat 2 X 14in 12-03-2016 Surgicel - Wrq9421227 Hemostat 8 X 6.25cm 05-25-19 18 X 10mm Surgifoam Gelatin Sponge - [id number] Screw 2 X 10mm Cross 018 Pin Locking - [id number] Screw 2 X 14mm Cross 018 Pin Locking - [id number] Plate 11hl Str Recon 018 - [id number] Bone Infuse Bone 11-03-2016 Graft Sm - [id number] Bone Infuse Bone 05-25-2017 Graft Xsm - [id number] Cement Bone 12-24-2016 Radiopaque Simplex P Single Dose - [id number] Tube Sz8 Trach 08-26-2016 Cuffed - [id number] Tube 22fr Feeding 08-26-2016 Gastrostomy Junior - [id number] Screw 2.4 X 32mm Va 08-28-19 17 Lock Self-Tap Strdrv Rec - [id number] Screw 2.4 X 44mm Va 08-28-19 17 Lock Self-Tap Strdrv Rec - [id number] Screw 2.4 X 36mm 08-27-2016 Cortex Self-Tap T8 Strdrv Rec - [id number] Screw 2.4 X 38mm 08-27-2016 Cortex Self-Tap T8 Strdrv Rec - [id number] Wire K .045 X 5.5in 08-28-19 17 W/Wire Guide - [id number] Plate 2.4mm 2.7mm 08-27-2016 Va-Lock Mesh 5 X 12hls - [id number] Wire 15 X 150mm 08-27-2016 Compression Thrd - [id number] 1.6mm Compression 08-27-2016 Wires 20mm Thread Length, 1500mm Total Length Screw 2.4 X 18mm [place] 017 Ang Lock Strdrv - [id number] Screw 2.4 X 20mm [place] 017 Ang Lock Strdrv - [id number] Screw 2.4 X 22mm [place] 017 Ang Lock Strdrv - [id number] Hemostat 8 X 12.5cm 11-04-19 17 X 10mm Surgifoam Gelatin Sponge - [id number] Screw 2.5 X 4mm Ti 7 Schanz 14mm Thrd Body - [id number] Hemostat 2 X 14in 12-03-2016 Surgicel - [id number] Hemostat 8 X 6.25cm 05-25-19 18 X 10mm Surgifoam Gelatin Sponge - [id number] Screw 2 X 10mm Cross 018 Pin Locking - [id number] Screw 2 X 14mm Cross 018 Pin Locking - [id number] Plate 11hl Str Recon 018 - [id number] Bone Infuse Bone 11-03-2016 Graft Sm - [id number] Bone Infuse Bone 05-25-2017 Graft Xsm - [id number] Cement Bone 12-24-2016 Radiopaque Simplex P Single Dose - [id number] Tube Sz8 Trach 08-26-2016 Cuffed - [id number] Tube 22fr Feeding 08-26-2016 Gastrostomy Junior - [id number] Screw 2.4 X 32mm Va 08-28-19 17 Lock Self-Tap Strdrv Rec - [id number] Screw 2.4 X 44mm Va 08-28-19 17 Lock Self-Tap Strdrv Rec - [id number] Screw 2.4 X 36mm 08-27-2016 Cortex Self-Tap T8 Strdrv Rec - [id number] Screw 2.4 X 38mm 08-27-2016 Cortex Self-Tap T8 Strdrv Rec - [id number] Wire K .045 X 5.5in 08-28-19 17 W/Wire Guide - [id number] Plate 2.4mm 2.7mm 08-27-2016 Va-Lock Mesh 5 X 12hls - [id number] Wire 15 X 150mm 08-27-2016 Compression Thrd - [id number] 1.6mm Compression 08-27-2016 Wires 20mm Thread Length, 1500mm Total Length Screw 2.4 X 18mm [place] 017 Ang Lock Strdrv - [id number] Screw 2.4 X 20mm [place] 017 Ang Lock Strdrv - [id number] Screw 2.4 X 22mm [place] 017 Ang Lock Strdrv - [id number] Hemostat 8 X 12.5cm 11-04-19 17 X 10mm Surgifoam Gelatin Sponge - [id number] Screw 2.5 X 4mm Ti 7 Schanz 14mm Thrd Body - [id number] Hemostat 2 X 14in 12-03-2016 Surgicel - [id number] Hemostat 8 X 6.25cm 05-25-19 18 X 10mm Surgifoam Gelatin Sponge - [id number] Screw 2 X 10mm Cross 018 Pin Locking - [id number] Screw 2 X 14mm Cross 018 Pin Locking - [id number] Plate 11hl Str Recon 018 - [id number] Bone Infuse Bone 11-03-2016 Graft Sm - [id number] Bone Infuse Bone 05-25-2017 Graft Xsm - [id number] Cement Bone 12-24-2016 Radiopaque Simplex P Single Dose - [id number] Tube Sz8 Trach 08-26-2016 Cuffed - [id number] Tube 22fr Feeding 08-26-2016 Gastrostomy Junior - [id number] Screw 2.4 X 32mm Va 08-28-19 17 Lock Self-Tap Strdrv Rec - [id number] Screw 2.4 X 44mm Va 08-28-19 17 Lock Self-Tap Strdrv Rec - [id number] Screw 2.4 X 36mm 08-27-2016 Cortex Self-Tap T8 Strdrv Rec - [id number] Screw 2.4 X 38mm 08-27-2016 Cortex Self-Tap T8 Strdrv Rec - [id number] Wire K .045 X 5.5in 08-28-19 17 W/Wire Guide - [id number] Plate 2.4mm 2.7mm 08-27-2016 Va-Lock Mesh 5 X 12hls - [id number] Wire 15 X 150mm 08-27-2016 Compression Thrd - [id number] 1.6mm Compression 08-27-2016 Wires 20mm Thread Length, 1500mm Total Length Screw 2.4 X 18mm Moraima 017 Ang Lock Strdrv - [id number] Screw 2.4 X 20mm Moraima 017 Ang Lock Strdrv - [id number] Screw 2.4 X 22mm Moraima 017 Ang Lock Strdrv - [id number] Hemostat 8 X 12.5cm 11-04-19 17 X 10mm Surgifoam Gelatin Sponge - [id number] Screw 2.5 X 4mm Ti 7 Schanz 14mm Thrd Body - [id number] Hemostat 2 X 14in 12-03-2016 Surgicel - [id number] Hemostat 8 X 6.25cm 05-25-19 18 X 10mm Surgifoam Gelatin Sponge - [id number] Screw 2 X 10mm Cross 018 Pin Locking - [id number] Screw 2 X 14mm Cross 018 Pin Locking - [id number] Plate 11hl Str Recon 018 - [id number] Bone Infuse Bone 11-03-2016 Graft Sm - [id number] Bone Infuse Bone 05-25-2017 Graft Xsm - [id number] Cement Bone 12-24-2016 Radiopaque Simplex P Single Dose - [id number] Tube Sz8 Trach 08-26-2016 Cuffed - [id number] Tube 22fr Feeding 08-26-2016 Gastrostomy Junior - [id number] Screw 2.4 X 32mm Va 08-28-19 17 Lock Self-Tap Strdrv Rec - [id number] Screw 2.4 X 44mm Va 08-28-19 17 Lock Self-Tap Strdrv Rec - [id number] Screw 2.4 X 36mm 08-27-2016 Cortex Self-Tap T8 Strdrv Rec - [id number] Screw 2.4 X 38mm 08-27-2016 Cortex Self-Tap T8 Strdrv Rec - [id number] Wire K .045 X 5.5in 08-28-19 17 W/Wire Guide - [id number] Plate 2.4mm 2.7mm 08-27-2016 Va-Lock Mesh 5 X 12hls - [id number] Wire 15 X 150mm 08-27-2016 Compression Thrd - [id number] 1.6mm Compression 08-27-2016 Wires 20mm Thread Length, 1500mm Total Length Screw 2.4 X 18mm Moraima 017 Ang Lock Strdrv - [id number] Screw 2.4 X 20mm Moraima 017 Ang Lock Strdrv - [id number] Screw 2.4 X 22mm Mor[place]a 017 Ang Lock Strdrv - [id number] Hemostat 8 X 12.5cm 11-04-19 17 X 10mm Surgifoam Gelatin Sponge - [id number] Screw 2.5 X 4mm Ti 7 Schanz 14mm Thrd Body - [id number] Hemostat 2 X 14in 12-03-2016 Surgicel - [id number] Hemostat 8 X 6.25cm 05-25-19 18 X 10mm Surgifoam Gelatin Sponge - [id number] Screw 2 X 10mm Cross 018 Pin Locking - [id number] Screw 2 X 14mm Cross 018 Pin Locking - [id number] Plate 11hl Str Recon 018 - [id number] Bone Infuse Bone 11-03-2016 Graft Sm - [id number] Bone Infuse Bone 05-25-2017 Graft Xsm - [id number] Cement Bone 12-24-2016 Radiopaque Simplex P Single Dose - [id number] Tube Sz8 Trach 08-26-2016 Cuffed - Vnz098051 Tube 22fr Feeding 08-26-2016 Gastrostomy Junior - [id number] Screw 2.4 X 32mm Va 08-28-19 17 Lock Self-Tap Strdrv Rec - [id number] Screw 2.4 X 44mm Va 08-28-19 17 Lock Self-Tap Strdrv Rec - [id number] Screw 2.4 X 36mm 08-27-2016 Cortex Self-Tap T8 Strdrv Rec - [id number] Screw 2.4 X 38mm 08-27-2016 Cortex Self-Tap T8 Strdrv Rec - [id number] Wire K .045 X 5.5in 08-28-19 17 W/Wire Guide - [id number] Plate 2.4mm 2.7mm 08-27-2016 Va-Lock Mesh 5 X 12hls - [id number] Wire 15 X 150mm 08-27-2016 Compression Thrd - [id number] 1.6mm Compression 08-27-2016 Wires 20mm Thread Length, 1500mm Total Length Screw 2.4 X 18mm Moraima 017 Ang Lock Strdrv - [id number] Screw 2.4 X 20mm Moraima 017 Ang Lock Strdrv - [id number] Screw 2.4 X 22mm Moraima 017 Ang Lock Strdrv - [id number] Hemostat 8 X 12.5cm 11-04-19 17 X 10mm Surgifoam Gelatin Sponge - [id number] Screw 2.5 X 4mm Ti 7 Schanz 14mm Thrd Body - [id number] Hemostat 2 X 14in 12-03-2016 Surgicel - [id number] Hemostat 8 X 6.25cm 05-25-19 18 X 10mm Surgifoam Gelatin Sponge - [id number] Screw 2 X 10mm Cross 018 Pin Locking - [id number] Screw 2 X 14mm Cross 018 Pin Locking - [id number] Plate 11hl Str Recon 018 - [id number] Bone Infuse Bone 11-03-2016 Graft Sm - [id number] Cement Bone 12-24-2016 Radiopaque Simplex P Single Dose - [id number] Tube Sz8 Trach 08-26-2016 Cuffed - [id number] Tube 22fr Feeding 08-26-2016 Gastrostomy Junior - [id number] Screw 2.4 X 32mm Va 08-28-19 17 Lock Self-Tap Strdrv Rec - Jku363485 Screw 2.4 X 44mm Va 08-28-19 17 Lock Self-Tap Strdrv Rec - [id number] Screw 2.4 X 36mm 08-27-2016 Cortex Self-Tap T8 Strdrv Rec - Ixj588759 Screw 2.4 X 38mm 08-27-2016 Cortex Self-Tap T8 Strdrv Rec - Wrq907767 Wire K .045 X 5.5in 08-28-19 17 W/Wire Guide - [id number] Plate 2.4mm 2.7mm 08-27-2016 Va-Lock Mesh 5 X 12hls - [id number] Wire 15 X 150mm 08-27-2016 Compression Thrd - [id number] 1.6mm Compression 08-27-2016 Wires 20mm Thread Length, 1500mm Total Length Screw 2.4 X 18mm Moraima 017 Ang Lock Strdrv - Jqo270533 Screw 2.4 X 20mm Moraima 017 Ang Lock Strdrv - [id number] Screw 2.4 X 22mm Moraima 017 Ang Lock Strdrv - [id number] Hemostat 8 X 12.5cm 11-04-19 17 X 10mm Surgifoam Gelatin Sponge - [id number] Screw 2.5 X 4mm Ti 7 Schanz 14mm Thrd Body - [id number] Hemostat 2 X 14in 12-03-2016 Surgicel - [id number] Bone Infuse Bone 11-03-2016 Graft Sm - [id number] Bone Infuse Bone 05-25-2017 Graft Xsm - [id number] Cement Bone 12-24-2016 Radiopaque Simplex P Single Dose - [id number] Tube Sz8 Trach 08-26-2016 Cuffed - [id number] Tube 22fr Feeding 08-26-2016 Gastrostomy Junior - Hqm976958 Screw 2.4 X 32mm Va 08-28-19 17 Lock Self-Tap Strdrv Rec - [id number] Screw 2.4 X 44mm Va 08-28-19 17 Lock Self-Tap Strdrv Rec - [id number] Screw 2.4 X 36mm 08-27-2016 Cortex Self-Tap T8 Strdrv Rec - [id number] Screw 2.4 X 38mm 08-27-2016 Cortex Self-Tap T8 Strdrv Rec - [id number] Wire K .045 X 5.5in 08-28-19 17 W/Wire Guide - [id number] Plate 2.4mm 2.7mm 08-27-2016 Va-Lock Mesh 5 X 12hls - [id number] Wire 15 X 150mm 08-27-2016 Compression Thrd - [id number] 1.6mm Compression 08-27-2016 Wires 20mm Thread Length, 1500mm Total Length Screw 2.4 X 18mm Moraima 017 Ang Lock Strdrv - [id number] Screw 2.4 X 20mm Moraima 017 Ang Lock Strdrv - [id number] Screw 2.4 X 22mm Moraima 017 Ang Lock Strdrv - [id number] Hemostat 8 X 12.5cm 11-04-19 17 X 10mm Surgifoam Gelatin Sponge - Cws1654922 Screw 2.5 X 4mm Ti 7 Schanz 14mm Thrd Body - [id number] Hemostat 2 X 14in 12-03-2016 Surgicel - [id number] Hemostat 8 X 6.25cm 05-25-19 18 X 10mm Surgifoam Gelatin Sponge - [id number] Screw 2 X 10mm Cross 018 Pin Locking - [id number] Screw 2 X 14mm Cross 018 Pin Locking - [id number] Plate 11hl Str Recon 018 - [id number] Bone Infuse Bone 11-03-2016 Graft Sm - [id number] Bone Infuse Bone 05-25-2017 Graft Xsm - [id number] Bone Infuse Bone 05-12-2018 Graft Sm - [id number] Cement Bone 12-24-2016 Radiopaque Simplex P Single Dose - [id number] Tube Sz8 Trach 08-26-2016 Cuffed - Gyu075529 Tube 22fr Feeding 08-26-2016 Gastrostomy Junior - [id number] Screw 2.4 X 32mm Va 08-28-19 17 Lock Self-Tap Strdrv Rec - Avj854525 Screw 2.4 X 44mm Va 08-28-19 17 Lock Self-Tap Strdrv Rec - [id number] Screw 2.4 X 36mm 08-27-2016 Cortex Self-Tap T8 Strdrv Rec - [id number] Screw 2.4 X 38mm 08-27-2016 Cortex Self-Tap T8 Strdrv Rec - [id number] Wire K .045 X 5.5in 08-28-19 17 W/Wire Guide - [id number] Plate 2.4mm 2.7mm 08-27-2016 Va-Lock Mesh 5 X 12hls - [id number] Wire 15 X 150mm 08-27-2016 Compression Thrd - [id number] 1.6mm Compression 08-27-2016 Wires 20mm Thread Length, 1500mm Total Length Screw 2.4 X 18mm Moraima 017 Ang Lock Strdrv - [id number] Screw 2.4 X 20mm Moraima 017 Ang Lock Strdrv - [id number] Screw 2.4 X 22mm Moraima 017 Ang Lock Strdrv - [id number] Hemostat 8 X 12.5cm 11-04-19 17 X 10mm Surgifoam Gelatin Sponge - Zge9071413 Screw 2.5 X 4mm Ti 7 Schanz 14mm Thrd Body - [id number] Hemostat 2 X 14in 12-03-2016 Surgicel - Iel9306085 Hemostat 8 X 6.25cm 05-25-19 18 X 10mm Surgifoam Gelatin Sponge - [id number] Plate 14hl Fracture 05-12-19 19 - [id number] Screw 2 X 14mm Cross 019 Pin Locking - [id number] Screw 2 X 10mm Cross 019 Pin Locking - [id number] Screw 2 X 8mm Cross 05-12-19 19 Pin Locking - [id number] Screw 2 X 16mm Cross 019 Pin Locking - [id number] Screw 2 X 10mm Cross 018 Pin Locking - [id number] Screw 2 X 14mm Cross 018 Pin Locking - [id number] Plate 11hl Str Recon 018 - [id number] Bone Infuse Bone 11-03-2016 Graft Sm - [id number] Bone Infuse Bone 05-25-2017 Graft Xsm - [id number] Bone Infuse Bone 05-12-2018 Graft Sm - [id number] Cement Bone 12-24-2016 Radiopaque Simplex P Single Dose - [id number] Tube Sz8 Trach 08-26-2016 Cuffed - Hyz820167 Tube 22fr Feeding 08-26-2016 Gastrostomy Junior - Nro707701 Screw 2.4 X 32mm Va 08-28-19 17 Lock Self-Tap Strdrv Rec - [id number] Screw 2.4 X 44mm Va 08-28-19 17 Lock Self-Tap Strdrv Rec - [id number] Screw 2.4 X 36mm 08-27-2016 Cortex Self-Tap T8 Strdrv Rec - [id number] Screw 2.4 X 38mm 08-27-2016 Cortex Self-Tap T8 Strdrv Rec - Edn572983 Wire K .045 X 5.5in 08-28-19 17 W/Wire Guide - [id number] Plate 2.4mm 2.7mm 08-27-2016 Va-Lock Mesh 5 X 12hls - [id number] Wire 15 X 150mm 08-27-2016 Compression Thrd - [id number] 1.6mm Compression 08-27-2016 Wires 20mm Thread Length, 1500mm Total Length Screw 2.4 X 18mm Moraima 017 Ang Lock Strdrv - Icw392821 Screw 2.4 X 20mm Moraima 017 Ang Lock Strdrv - Zhe293686 Screw 2.4 X 22mm Moraima 017 Ang Lock Strdrv - Ity914715 Hemostat 8 X 12.5cm 11-04-19 17 X 10mm Surgifoam Gelatin Sponge - Acp6171252 Screw 2.5 X 4mm Ti 7 Schanz 14mm Thrd Body - Twj0043741 Hemostat 2 X 14in 12-03-2016 Surgicel - Pia7562429 Hemostat 8 X 6.25cm 05-25-19 18 X 10mm Surgifoam Gelatin Sponge - [id number] Plate 14hl Fracture 05-12-19 19 - [id number] Screw 2 X 14mm Cross 019 Pin Locking - [id number] Screw 2 X 10mm Cross 019 Pin Locking - [id number] Screw 2 X 8mm Cross 05-12-19 19 Pin Locking - Gfp8388931 Screw 2 X 16mm Cross 019 Pin Locking - [id number] Bone Infuse Bone 11-03-2016 Graft Sm - Afx6886453 Bone Infuse Bone 05-25-2017 Graft Xsm - [id number] Bone Infuse Bone 05-12-2018 Graft Sm - Rng0873706 Cement Bone 12-24-2016 Radiopaque Simplex P Single Dose - Hev0763723 Tube Sz8 Trach 08-26-2016 Cuffed - Qub416887 Tube 22fr Feeding 08-26-2016 Gastrostomy Junior - Ron890084 Screw 2.4 X 32mm Va 08-28-19 17 Lock Self-Tap Strdrv Rec - [id number] Screw 2.4 X 44mm Va 08-28-19 17 Lock Self-Tap Strdrv Rec - [id number] Screw 2.4 X 36mm 08-27-2016 Cortex Self-Tap T8 Strdrv Rec - Xwq230689 Screw 2.4 X 38mm 08-27-2016 Cortex Self-Tap T8 Strdrv Rec - [id number] Wire K .045 X 5.5in 08-28-19 17 W/Wire Guide - [id number] Plate 2.4mm 2.7mm 08-27-2016 Va-Lock Mesh 5 X 12hls - [id number] Wire 15 X 150mm 08-27-2016 Compression Thrd - [id number] 1.6mm Compression 08-27-2016 Wires 20mm Thread Length, 1500mm Total Length Screw 2.4 X 18mm Moraima 017 Ang Lock Strdrv - [id number] Screw 2.4 X 20mm Moraima 017 Ang Lock Strdrv - Cii698490 Screw 2.4 X 22mm Moraima 017 Ang Lock Strdrv - [id number] Hemostat 8 X 12.5cm 11-04-19 17 X 10mm Surgifoam Gelatin Sponge - Ymm8080693 Screw 2.5 X 4mm Ti 7 Schanz 14mm Thrd Body - [id number] Hemostat 2 X 14in 12-03-2016 Surgicel - [id number] Hemostat 8 X 6.25cm 05-25-19 18 X 10mm Surgifoam Gelatin Sponge - Wtp8479724 Screw 2.5 X 4mm Ti 9 Schanz 10mm Thrd Ramus - [id number] Screw 2.5 X 4mm Ti 9 Schanz 14mm Thrd Body - [id number] Plate 14hl Fracture 05-12-19 19 - [id number] Screw 2 X 14mm Cross 019 Pin Locking - [id number] Screw 2 X 10mm Cross 019 Pin Locking - [id number] Screw 2 X 8mm Cross 05-12-19 19 Pin Locking - [id number] Screw 2 X 16mm Cross 019 Pin Locking - [id number] Bone Infuse Bone 11-03-2016 Graft Sm - [id number] Bone Infuse Bone 05-25-2017 Graft Xsm - [id number] Bone Infuse Bone 05-12-2018 Graft Sm - Hqh0921453 Cement Bone 12-24-2016 Radiopaque Simplex P Single Dose - [id number] Tube Sz8 Trach 08-26-2016 Cuffed - Olc198989 Tube 22fr Feeding 08-26-2016 Gastrostomy Junior - Zma690974 Screw 2.4 X 32mm Va 08-28-19 17 Lock Self-Tap Strdrv Rec - [id number] Screw 2.4 X 44mm Va 08-28-19 17 Lock Self-Tap Strdrv Rec - [id number] Screw 2.4 X 36mm 08-27-2016 Cortex Self-Tap T8 Strdrv Rec - [id number] Screw 2.4 X 38mm 08-27-2016 Cortex Self-Tap T8 Strdrv Rec - [id number] Wire K .045 X 5.5in 08-28-19 17 W/Wire Guide - [id number] Plate 2.4mm 2.7mm 08-27-2016 Va-Lock Mesh 5 X 12hls - [id number] Wire 15 X 150mm 08-27-2016 Compression Thrd - [id number] 1.6mm Compression 08-27-2016 Wires 20mm Thread Length, 1500mm Total Length Screw 2.4 X 18mm Moraima 017 Ang Lock Strdrv - [id number] Screw 2.4 X 20mm Moraima 017 Ang Lock Strdrv - [id number] Screw 2.4 X 22mm Moraima 017 Ang Lock Strdrv - [id number] Hemostat 8 X 12.5cm 11-04-19 17 X 10mm Surgifoam Gelatin Sponge - [id number] Screw 2.5 X 4mm Ti 7 Schanz 14mm Thrd Body - Vhy9120766 Hemostat 2 X 14in 12-03-2016 Surgicel - [id number] Hemostat 8 X 6.25cm 05-25-19 18 X 10mm Surgifoam Gelatin Sponge - Lzy5130435 Screw 2.5 X 4mm Ti 9 Schanz 10mm Thrd Ramus - [id number] Screw 2.5 X 4mm Ti 9 Schanz 14mm Thrd Body - [id number] Bone Infuse Bone 11-03-2016 Graft Sm - Oxv1467255 Bone Infuse Bone 05-25-2017 Graft Xsm - Gcz9702404 Bone Infuse Bone 05-12-2018 Graft Sm - [id number] Cement Bone 12-24-2016 Radiopaque Simplex P Single Dose - Gww6674437 Tube Sz8 Trach 08-26-2016 Cuffed - Hmk753949 Tube 22fr Feeding 08-26-2016 Gastrostomy Junior - Cpi528145 Screw 2.4 X 32mm Va 08-28-19 17 Lock Self-Tap Strdrv Rec - [id number] Screw 2.4 X 44mm Va 08-28-19 17 Lock Self-Tap Strdrv Rec - Axb302375 Screw 2.4 X 36mm 08-27-2016 Cortex Self-Tap T8 Strdrv Rec - Rye379971 Screw 2.4 X 38mm 08-27-2016 Cortex Self-Tap T8 Strdrv Rec - [id number] Wire K .045 X 5.5in 08-28-19 17 W/Wire Guide - [id number] Plate 2.4mm 2.7mm 08-27-2016 Va-Lock Mesh 5 X 12hls - [id number] Wire 15 X 150mm 08-27-2016 Compression Thrd - [id number] 1.6mm Compression 08-27-2016 Wires 20mm Thread Length, 1500mm Total Length Screw 2.4 X 18mm Moraima 017 Ang Lock Strdrv - [id number] Screw 2.4 X 20mm Moraima 017 Ang Lock Strdrv - Kql401386 Screw 2.4 X 22mm Moraima 017 Ang Lock Strdrv - [id number] Hemostat 8 X 12.5cm 11-04-19 17 X 10mm Surgifoam Gelatin Sponge - [id number] Screw 2.5 X 4mm Ti 7 Schanz 14mm Thrd Body - Nve1236018 Hemostat 2 X 14in 12-03-2016 Surgicel - [id number] Hemostat 8 X 6.25cm 05-25-19 18 X 10mm Surgifoam Gelatin Sponge - [id number] Screw 2.5 X 4mm Ti 9 Schanz 10mm Thrd Ramus - Yvl3790130 Screw 2.5 X 4mm Ti 9 Schanz 14mm Thrd Body - [id number] Bone Infuse Bone 11-03-2016 Graft Sm - [id number] Bone Infuse Bone 05-25-2017 Graft Xsm - Jfw0853649 Bone Infuse Bone 05-12-2018 Graft Sm - [id number] Cement Bone 12-24-2016 Radiopaque Simplex P Single Dose - Qmq9892202 Tube Sz8 Trach 08-26-2016 Cuffed - [id number] Tube 22fr Feeding 08-26-2016 Gastrostomy Junior - [id number] Screw 2.4 X 32mm Va 08-28-19 17 Lock Self-Tap Strdrv Rec - [id number] Screw 2.4 X 44mm Va 08-28-19 17 Lock Self-Tap Strdrv Rec - [id number] Screw 2.4 X 36mm 08-27-2016 Cortex Self-Tap T8 Strdrv Rec - Yml637404 Screw 2.4 X 38mm 08-27-2016 Cortex Self-Tap T8 Strdrv Rec - Spv962849 Wire K .045 X 5.5in 08-28-19 17 W/Wire Guide - [id number] Plate 2.4mm 2.7mm 08-27-2016 Va-Lock Mesh 5 X 12hls - [id number] Wire 15 X 150mm 08-27-2016 Compression Thrd - [id number] 1.6mm Compression 08-27-2016 Wires 20mm Thread Length, 1500mm Total Length Screw 2.4 X 18mm Moraima 017 Ang Lock Strdrv - [id number] Screw 2.4 X 20mm Moraima 017 Ang Lock Strdrv - [id number] Screw 2.4 X 22mm Moraima 017 Ang Lock Strdrv - [id number] Hemostat 8 X 12.5cm 11-04-19 17 X 10mm Surgifoam Gelatin Sponge - [id number] Screw 2.5 X 4mm Ti 7 Schanz 14mm Thrd Body - Ewm4489697 Hemostat 2 X 14in 12-03-2016 Surgicel - [id number] Hemostat 8 X 6.25cm 05-25-19 18 X 10mm Surgifoam Gelatin Sponge - Ihg3874031 Screw 2.5 X 4mm Ti 9 Schanz 10mm Thrd Ramus - Qsr1885536 Screw 2.5 X 4mm Ti 9 Schanz 14mm Thrd Body - [id number] Bone Infuse Bone 11-03-2016 Graft Sm - [id number] Bone Infuse Bone 05-25-2017 Graft Xsm - [id number] Bone Infuse Bone 05-12-2018 Graft Sm - [id number] Cement Bone 12-24-2016 Radiopaque Simplex P Single Dose - Ccq4585859 Tube Sz8 Trach 08-26-2016 Cuffed - [id number] Tube 22fr Feeding 08-26-2016 Gastrostomy Junior - Pwf654217 Screw 2.4 X 32mm Va 08-28-19 17 Lock Self-Tap Strdrv Rec - [id number] Screw 2.4 X 44mm Va 08-28-19 17 Lock Self-Tap Strdrv Rec - [id number] Screw 2.4 X 36mm 08-27-2016 Cortex Self-Tap T8 Strdrv Rec - [id number] Screw 2.4 X 38mm 08-27-2016 Cortex Self-Tap T8 Strdrv Rec - [id number] Wire K .045 X 5.5in 08-28-19 17 W/Wire Guide - [id number] Plate 2.4mm 2.7mm 08-27-2016 Va-Lock Mesh 5 X 12hls - Ckt958163 Wire 15 X 150mm 08-27-2016 Compression Thrd - [id number] 1.6mm Compression 08-27-2016 Wires 20mm Thread Length, 1500mm Total Length Screw 2.4 X 18mm Moraima 017 Ang Lock Strdrv - [id number] Screw 2.4 X 20mm Moraima 017 Ang Lock Strdrv - [id number] Screw 2.4 X 22mm Moraima 017 Ang Lock Strdrv - [id number] Hemostat 8 X 12.5cm 11-04-19 17 X 10mm Surgifoam Gelatin Sponge - [id number] Screw 2.5 X 4mm Ti 7 Schanz 14mm Thrd Body - [id number] Hemostat 2 X 14in 12-03-2016 Surgicel - [id number] Hemostat 8 X 6.25cm 05-25-19 18 X 10mm Surgifoam Gelatin Sponge - [id number] Screw 2.5 X 4mm Ti 9 Schanz 10mm Thrd Ramus - Svh5144064 Screw 2.5 X 4mm Ti 9 Schanz 14mm Thrd Body - [id number] Bone Infuse Bone 11-03-2016 Graft Sm - Ydi8133699 Tube Sz8 Trach 08-26-2016 Cuffed - [id number] Tube 22fr Feeding 08-26-2016 Gastrostomy Junior - Axh769523 Screw 2.4 X 32mm Va 08-28-19 17 Lock Self-Tap Strdrv Rec - [id number] Screw 2.4 X 44mm Va 08-28-19 17 Lock Self-Tap Strdrv Rec - [id number] Screw 2.4 X 36mm 08-27-2016 Cortex Self-Tap T8 Strdrv Rec - Pkc399157 Screw 2.4 X 38mm 08-27-2016 Cortex Self-Tap T8 Strdrv Rec - Sgy007858 Wire K .045 X 5.5in 08-28-19 17 W/Wire Guide - [id number] Plate 2.4mm 2.7mm 08-27-2016 Va-Lock Mesh 5 X 12hls - [id number] Wire 15 X 150mm 08-27-2016 Compression Thrd - [id number] 1.6mm Compression 08-27-2016 Wires 20mm Thread Length, 1500mm Total Length Screw 2.4 X 18mm Moraima 017 Ang Lock Strdrv - [id number] Screw 2.4 X 20mm Moraima 017 Ang Lock Strdrv - [id number] Screw 2.4 X 22mm Moraima 017 Ang Lock Strdrv - [id number] Hemostat 8 X 12.5cm 11-04-19 17 X 10mm Surgifoam Gelatin Sponge - Qhp8749027 Screw 2.5 X 4mm Ti 7 Schanz 14mm Thrd Body - [id number] Hemostat 2 X 14in 12-03-2016 Surgicel - [id number] Bone Infuse Bone 11-03-2016 Graft Sm - Zox5463851 Tube Sz8 Trach 08-26-2016 Cuffed - Yuf745130 Tube 22fr Feeding 08-26-2016 Gastrostomy Junior - Vnp161491 Screw 2.4 X 32mm Va 08-28-19 17 Lock Self-Tap Strdrv Rec - [id number] Screw 2.4 X 44mm Va 08-28-19 17 Lock Self-Tap Strdrv Rec - Itp650615 Screw 2.4 X 36mm 08-27-2016 Cortex Self-Tap T8 Strdrv Rec - Obv261691 Screw 2.4 X 38mm 08-27-2016 Cortex Self-Tap T8 Strdrv Rec - [id number] Wire K .045 X 5.5in 08-28-19 17 W/Wire Guide - [id number] Plate 2.4mm 2.7mm 08-27-2016 Va-Lock Mesh 5 X 12hls - [id number] Wire 15 X 150mm 08-27-2016 Compression Thrd - [id number] 1.6mm Compression 08-27-2016 Wires 20mm Thread Length, 1500mm Total Length Screw 2.4 X 18mm Moraima 017 Ang Lock Strdrv - [id number] Screw 2.4 X 20mm Moraima 017 Ang Lock Strdrv - Bok230583 Screw 2.4 X 22mm Mor[place]a 017 Ang Lock Strdrv - [id number] Hemostat 8 X 12.5cm 11-04-19 17 X 10mm Surgifoam Gelatin Sponge - [id number] Screw 2.5 X 4mm Ti 7 Schanz 14mm Thrd Body - [id number] Hemostat 2 X 14in 12-03-2016 Surgicel - [id number] Bone Infuse Bone [id number][facility] 11-03-2016 Graft Sm - Czf6250821 Bone Infuse Bone 573918[facility] 05-25-2017 Graft Xsm - Ixb6601590 Bone Infuse Bone 765182[facility] 05-12-2018 Graft Sm - Vex1950699 Cement Bone 491380[facility] 12-24-2016 Radiopaque Simplex P Single Dose - Gbi8447061 Tube Sz8 Trach 428782[facility] 08-26-2016 Cuffed - Byd065601 Tube 22fr Feeding [id number][facility] 08-26-2016 Gastrostomy Junior - Rzg472022 Screw 2.4 X 32mm Va 429110[facility] 08-28-19 17 Lock Self-Tap Strdrv Rec - Ori025694 Screw 2.4 X 44mm Va 429111[facility] 08-28-19 17 Lock Self-Tap Strdrv Rec - Fxh471911 Screw 2.4 X 36mm 429112[facility] 08-27-2016 Cortex Self-Tap T8 Strdrv Rec - Izv172555 Screw 2.4 X 38mm 429114[facility] 08-27-2016 Cortex Self-Tap T8 Strdrv Rec - [id number] Wire K .045 X 5.5in 429036[facility] 08-28-19 17 W/Wire Guide - [id number] Plate 2.4mm 2.7mm 429101[facility] 08-27-2016 Va-Lock Mesh 5 X 12hls - Edi013974 Wire 15 X 150mm 429103[facility] 08-27-2016 Compression Thrd - Ygs157552 1.6mm Compression 429104[facility] 08-27-2016 Wires 20mm Thread Length, 1500mm Total Length Screw 2.4 X 18mm Moraima 429107[facility] 017 Ang Lock Strdrv - Tsz523783 Screw 2.4 X 20mm Moraima 429108[facility] 017 Ang Lock Strdrv - Lca957705 Screw 2.4 X 22mm Mor[place]a 429109[facility] 017 Ang Lock Strdrv - [id number] Hemostat 8 X 12.5cm [id number][facility] 11-04-19 17 X 10mm Surgifoam Gelatin Sponge - [id number] Screw 2.5 X 4mm Ti [id number][facility] 7 Schanz 14mm Thrd Body - Udr7711013 Hemostat 2 X 14in [id number][facility] 12-03-2016 Surgicel - [id number] Hemostat 8 X 6.25cm [id number][facility] 05-25-19 18 X 10mm Surgifoam Gelatin Sponge - Wiq7806146 Screw 2.5 X 4mm Ti [id number][facility] 9 Schanz 10mm Thrd Ramus - [id number] Screw 2.5 X 4mm Ti 771793[facility] 9 Schanz 14mm Thrd Body - [id number] Hospital Course Kellie Vega [facility] - 03/14/2017 9:37 AM ESTFormatting of this note may be different from the original. DISCHARGE SUMMARY Patient: Honroio Prince Account: [id number] Admitted: 03/11/2017 Discharge Date/Time: No discharge date [...] Care Provider: Sasha Fields MD, , Address: [address] [place] [address] / [place] [phone] Follow Up: Moyn Enriquez MD [address] [facility] [address] [place] [address] Schedule an appointment as soon as possible [...] chart reviewed. I agree with the resident/ SENIOR ESTIMATOR's evaluation and plan.in this encounterKellie Vega CNP - 12/28/2016 10:22 AM EDTFormatting of this note may be different from the original. DISCHARGE SUMMARY Patient: Honorio Prince Account: [id number] Admitted: 12/21/2016 Discharge Date/Time: No discharge date [...] Care Provider: Physician No, Phone: None, Address: [facility] Follow Up: Mony Enriquez MD [address] [place] [address] Schedule an appointment as soon as possible for a visit in 1 week(s) Sridhar Lainez MD [address] [place] [address] Additional Information Patient instructions, including activity, were [...] original. DISCHARGE SUMMARY Patient: Honorio Prince Account: [id number] Admitted: 05/25/2017 Discharge Date/Time: No discharge date [...] Care Provider: Sasha Fields MD, , Address: [address] [place] [address] / [place] [address] Follow Up: Sridhar Lainez MD [address] [facility] [address] Schedule an appointment as soon as possible for a visit in 6 week(s) Mony Enriquez MD [address] [facility] [address] [facility] [address] Schedule an appointment as soon as [...] EST DISCHARGE SUMMARY Patient: Honorio Prince Account: [id number] Admitted: 05/12/2018 Discharge Date/Time: No discharge date [...] Care Provider: Sasha Fields MD, , Address: [address] [place] [address] / [place] [address] Follow Up: Mony Enriquez MD [address] [place] [address] Schedule an appointment as soon as possible [...] different from the original. Home Health Care: [facility] at Continue current services. ? Infusion Services: [...] KacieAra hall, DEE - 12/22/2016 12:[facility] at Continue current services. Infusion Services: [facility] Weekly CBC with diff, creatinine, vanco trough, ESR, CRP to Dr. Lainez at [phone]. Apply for Victims Compensation If you or your family members are innocent victims of a violent crime, financial assistance may be available. The following is a list of guidelines to help you determine whether you might be eligible for a payment. For specific questions, call the Vehicle Cost Engineer?s Office at [phone]. Applications and supplemental applications can be mailed to: [address] [place] [address], [address] [place] [address] Apply online: [email or web address] Crime Victims Compensation Guidelines Effective July 30, 2016: [place] Crime Victim Compensation Program Statutory Changes Who [...] a child endangering or domestic violence conviction, years prior to the crime or while [...] for stolen, damaged, or lost property. The Vehicle Cost Engineer?s Office will not pay victims for expenses [...] canes, walkers, wheelchairs, and other mobility equipment. Geometry Tutor fees for civil protection orders' hourly rate for legal work went up from $60.00 per hour to $100.00. The maximum amount for estate attorney fees per claim was changed to $1,000.00. Reasonable travel time to attend hearings is limited to 3 hours round trip for each hearing at $30.00 per hour. The cap on individual attorneys or law firms was eliminated. A supplemental application may be filed within six years of the last decision of the Vehicle Cost Engineer, an [place] Court of Claims panel commissioners, or a Court of Claims reproductive endocrinologist.Ashleigh Hurd, SRINI - 12/28/2016Formatting of this note [...] drive, operate heavy machinery, ride motorcycles or [employer]'s, drink alcohol, or take other medications that [...] have a primary care physician please call [facility] Physician Referral Line [phone] for assistance. in this encounterDischarge Instr - Care Coordination - Piedad Phillips RN - 05/30/2017 1:46 PM ESTWeekly CBC with diff, creatinine, vanco trough, ESR, CRP to Dr. Lainez at [phone]. [facility] P:[phone] F:[phone] Vega CNP - 05/31/2017Wound Care: Change dressing [...] through Care Everywhere.NAUSEA AND VOMITING: AFTER SURGERY (EG[place]IAN)POST-OP INFECTION (EGYPTIAN)SEDATION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
--- OUTSIDE RECORDS SUMMARY | 2020-02-10 11:56 | XMS RPT_ITS | CCD ---
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 (TYLENOL) 05-31-2017 - Francisco Lima [facility] ([id number]) 325 MG tablet Take 3 06-10-2017 [place] (three) tablets (975 mg total) by mouth every 8 (eight) hours for 10 days. 90 tablet 0 05/31/2017 06/10/2017 acetaminophen (TYLENOL) 05-31-2017 - Francisco Lima [facility] ([id number]) 650 mg/20.3 mL Soln Take 05-31-2017 [place] 30.45 mL (975 mg total) by mouth every 8 (eight) hours. 2740.5 mL 0 05/31/2017 05/31/2017 Discontinued acetaminophen (TYLENOL) 05-25-2017 - [facility] ([id number]) solution 975 mg 975 mg, 05-31-2017 Oral, Every 8 hours, First dose on Tue05/25/17 at 2000 Given 05/30/2017 20:12 EST 975 mg acetaminophen / oxyCODONE-acetaminophen 03-14-2017 - Mony Zimmerman oxyCODONE (PERCOCET) 7.5-325 mg per 03-22-2017 [place] ([id number]) tablet Take 1 (one) tablet [place] to 2 (two) tablets by mouth every 4 (four) hours as needed for pain. 50 tablet 0 03/14/2017 03/22/2017 Discontinued oxyCODONE-acetaminophen 03-12-2017 - Ovi Pena [facility] ([id number]) (PERCOCET) 7.5-325 mg per tablet 03-14-2017 2 tablet 2 tablet, Oral, Every 4 hours PRN, moderate to severe pain, Starting 03/12/17 at 0815 Given 03/14/2017 04:39 EST 2 tablets oxyCODONE-acetaminophen 03-11-2017 - Luis Manuel Lee [facility] ([id number]) (PERCOCET) 5-325 mg per tablet 2 03-11-2017 [place] tablet 2 tablet, Oral, Once as needed, Pain, Starting 03/11/17 at 0916, For 1 dose, PACU (only), [] While in PACU when tolerating orals. [] Use oral route first, if tolerated. Given 03/11/2017 09:32 EST 2 tablets oxyCODONE-acetaminophen 02-22-2017 - Ashlie Chand [facility] ([id number]) (PERCOCET) 7.5-325 mg per tablet 03-14-2017 1 tablet 1 tablet, Oral, Every 6 hours PRN, moderate to severe pain, Starting 03/11/17 at 1105 Given 03/11/2017 13:37 EST 1 tablet oxyCODONE-acetaminophen 02-03-2017 - [facility] ([id number]) (PERCOCET) 5-325 mg per tablet 02-10-2017 Indications: Chronic osteomyelitis of facial bones (HCC) Take 1 (one) tablet by mouth every 6 (six) hours as needed for pain. 20 tablet 0 02/03/2017 02/10/2017 Active oxyCODONE-acetaminophen 01-04-2017 - [facility] ([id number]) (PERCOCET) 5-325 mg per tablet 01-14-2017 Indications: Chronic osteomyelitis of facial bones (HCC) Take 1 (one) tablet by mouth every 4 (four) hours as needed for pain. 28 tablet 0 01/04/2017 01/14/2017 Active oxyCODONE-acetaminophen 12-28-2016 - [facility] ([id number]) (PERCOCET) 5-325 mg per tablet 01-07-2017 Take 1 (one) tablet to 2 (two) tablets by mouth every 4 (four) hours as needed for pain. 65 tablet 0 12/28/2016 01/04/2017 Discontinued oxyCODONE-acetaminophen 12-21-2016 - [facility] ([id number]) (PERCOCET) 5-325 mg per tablet 2 12-28-2016 tablet 2 tablet, Oral, Every 4 hours PRN, moderate to severe pain, Starting Tu12/21/16 at 1544 Given 12/28/2016 04:10 EDT 2 tablets oxyCODONE-acetaminophen 12-07-2016 - [facility] ([id number]) (PERCOCET) 10-325 mg per tablet 12-28-2016 Take 1 (one) tablet to 2 (two) tablets by mouth every 4 (four) hours as needed for pain. 50 tablet 0 12/15/2016 12/25/2016 Suspended oxyCODONE-acetaminophen 12-01-2016 - Jorge Jamison [facility] ([id number]) (PERCOCET) 10-325 mg per tablet 12-01-2017 Indications: Open fracture of body of mandible with routine healing, unspecified laterality, subsequent encounter Take 1 (one) tablet by mouth every 4 (four) hours as needed for pain. 42 tablet 0 12/01/2016 12/08/2016 Discontinued oxyCODONE-acetaminophen 11-25-2016 - [facility] ([id number]) (PERCOCET) 5-325 mg per tablet 12-07-2016 Take 1 (one) tablet by mouth every 6 (six) hours as needed for pain Ran out 10 tablet 0 11/27/2016 12/07/2016 Suspended oxyCODONE-acetaminophen 11-22-2016 - Jose De Jesus White [facility] ([id number]) (PERCOCET) 5-325 mg per tablet 2 11-25-2016 tablet 2 tablet, Oral, Every 4 hours PRN, moderate to severe pain, Starting 11/22/16 at 1525 oxyCODONE-acetaminophen 11-11-2016 - Carolee Hunt [facility] ([id number]) (PERCOCET) 5-325 mg per tablet 11-25-2016 [place] Indications: 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 80 tablet 0 11/11/2016 11/25/2016 Discontinued adhesive bandage adhesive bandage 04-07-2017 - Mily Pollard [facility] ([place] 05-25-2017 ([id number]) DRESSING) 4 X 6 DRESSING) 4 X 6 Bndg Bndg Apply 1 Package topically 2 (two) times a day To the left mandible. 30 each 5 04/07/2017 05/25/2017 Discontinued adhesive bandage ([place] DRESSING) 04-07-2017 [facility] ([id number]) 4 X 6 Bndg Apply 1 Package topically 2 (two) times a day To the left mandible. 30 each 04/07/2017 Active adhesive bandage ([place] DRESS[place]) 04-07-2017 [facility] ([id number]) 4 X 6 Bndg Apply 1 Package topically 2 (two) times a day To the left mandible. 30 each 04/07/2017 Active adhesive bandage ([place] DRESSING) 04-07-2017 [facility] ([id number]) 4 X 6 Bndg Apply 1 Package topically 2 (two) times a day To the left mandible. 30 each 5 04/07/2017 Active adhesive bandage ([place] DRESS[place]) 04-07-2017 [facility] ([id number]) 4 X 6 Bndg Apply 1 Package topically 2 (two) times a day To the left mandible. 30 each 5 04/07/2017 Active adhesive bandage ([place] DRESSING) 04-07-2017 [facility] ([id number]) 4 X 6 Bndg Apply 1 Package topically 2 (two) times a day To the left mandible. 30 each 5 04/07/2017 Active adhesive bandage ([place] DRESS[place]) 04-07-2017 [facility] ([id number]) 4 X 6 Bndg Apply 1 Package topically 2 (two) times a day To the left mandible. 30 each 5 04/07/2017 Active adhesive bandage ([place] DRESSING) 04-07-2017 - 04-07-2017 [facility] ([id number]) 4 X 6 Bndg Apply 1 Package topically 2 (two) times a day To the left mandible. 30 each 04/07/2017 04/07/2017 Discontinued Albuterol 2 puff, Inhalation, Every 6 05-22-2018 - 05-27-2018 [facility] ([id number]) hours PRN, wheezing, Starting Tue05/22/18 at 0254 2 puff, Inhalation, Every 05-12-2018 - 06-05-2018 Jose De Jesus White [facility] ([id number]) 6 hours PRN, wheezing, Starting Tue05/12/18 at 1327 albuterol 90 mcg/actuation Jessenia Sahni [facility] ([id number]) inhaler Inhale 2 puffs every 6 (six) hours as needed for wheezing . Active Amoxicillin / amoxicillin-clavulanate 05-26-2018 - Tahira Wai [facility] Clavulanate (AUGMENTIN) 875-125 mg per 05-27-2018 [place] ( [id number]) tablet 1 tablet amoxicillin-clavulanate 05-26-2018 - Brittney Coles [facility] ([id number]) (AUGMENTIN) 875-125 mg per 07-21-2018 [place] tablet Take 1 (one) tablet by mouth 2 (two) times a day . 112 tablet 0 05/26/2018 07/21/2018 ampicillin-sulbactam ampicillin-sulbactam 05-24-2018 - Tahira Hyaden [facility] (UNASYN) 3000 mg in (UNASYN) 3000 mg in 05-26-2018 ( [id number]) sodium chloride (NS) sodium chloride (NS) 0.9% 100 mL MBP 0.9% 100 mL MBP calcium chloride / lactated Ringers 05-26-2018 - Kim Avery [facility] ealt lactate / potassium infusion 05-27-2018 [place] ([id number]) chloride / sodium chloride lactated Ringers infusion 05-21-2018 - 05-24-2018 [facility] ([id number]) lactated Ringers infusion 05-12-2018 - 05-13-2018 [facility] ([id number]) lactated Ringers infusion 05-25-2017 - 05-31-2017 [facility] ([id number]) 25 mL/hr, Intravenous, Continuous, Starting Tue05/25/17 at 1045, KVO Restarted 05/26/2017 10:45 EST 25 mL/hr 25 mL/hr lactated Ringers infusion 03-11-2017 - 03-14-2017 Rob Brown ms [facility] ([id number]) 25 mL/hr, Intravenous, Continuous, Starting Tue03/11/17 at 0630 New Bag 03/11/2017 07:27 EST 25 mL/hr 25 mL/hr lactated Ringers infusion 12-22-2016 - 12-22-2016 [facility] ([id number]) 50 mL/hr, Intravenous, Continuous, Starting Tue12/22/16 at 1730, For 2 hours New Bag 12/22/2016 16:50 EDT 50 mL/hr 50 mL/hr lactated Ringers infusion 12-03-2016 - 12-08-2016 [facility] ([id number]) 25 mL/hr, Intravenous, Continuous, Starting Tue12/03/16 at 0730 New Bag 12/03/2016 07:31 EDT 25 mL/hr 25 mL/hr lactated Ringers infusion 11-22-2016 - 11-25-2016 [facility] ([id number]) 25 mL/hr, Intravenous, Continuous, Starting Tue11/22/16 at 1130, KVO ceFAZolin ceFAZolin (ANCEF) 12-03-2016 - Watson Lerma [facility] IVPB 2 g (premix) 12-05-2016 ([id number]) 2,000 mg, Intravenous, at 200 mL/hr, Daily, First dose on Tue12/03/16 at 1400, Indication: Other (specify) Rate/Dose Verify 12/04/2016 08:18 EDT 200 mL/hr cefTRIAXone cefTRIAXone 12-02-2016 - [facility] (ROCEPHIN) 2000 (ROCEPHIN) 2000 mg 12-03-2016 ([id number] ) mg in sodium in sodium chloride [...] mL/hr cefTRIAXone cefTRIAXone 11-25-2016 - Kim Carrion [facility] h (ROCEPHIN) 2000 (ROCEPHIN) 2000 mg 11-25-2016 ([id number] ) mg in sodium in sodium chloride [...] 2,000 cefTRIAXone 2,000 11-25-2016 - Jorge [facility] mg in sodium mg in sodium 12-08-2016 ([id number]) chloride 0.9 % chloride 0.9 % 0.9 0.9 % 50 mL IVPB % 50 mL IVPB Infuse 2,000 (two thousand) mg into a venous catheter daily. 7 each 5 11/25/2016 12/08/2016 Discontinued cefTRIAXone 2,000 mg in 11-25-2016 - Jorge Jamison [facility] ([id number]) sodium chloride 0.9 % 0.9 12-08-2016 % 50 mL IVPB Infuse 2,000 (two thousand) mg into a venous catheter daily. 7 each 5 11/25/2016 12/08/2016 Discontinued cefTRIAXone 2,000 mg in 11-25-2016 - Sridhar [facility] ([id number]) sodium chloride 0.9 % 0.9 01-03-2017 [place] % 50 mL IVPB Infuse 2,000 (two thousand) mg into a venous catheter daily. 7 each 11/25/2016 01/03/2017 Suspended cefTRIAXone 2,000 mg in 11-25-2016 - Sridhar [facility] ([id number]) sodium chloride 0.9 % 0.9 01-03-2017 [place] % 50 mL IVPB Infuse 2,000 (two thousand) mg into a venous catheter daily. 7 each 11/25/2016 01/03/2017 Active chlorhexidine chlorhexidine 05-22-2018 - Carroll Dennys [facility] ([id number]) (PERIDEX) 0.12 % 05-26-2018 solution 15 mL chlorhexidine (PERIDEX) 05-25-2017 - Kellie [facility] ([id number]) 0.12 % solution 15 mL by 06-14-2017 Other route 4 (four) times a day for 14 days. 120 mL 1 05/31/2017 06/14/2017 chlorhexidine (PERIDEX) 03-18-2017 - Andre Cline [facility] ([id number]) 0.12 % solution 15 mL. 05-31-2017 03/18/2017 05/31/2017 Discontinued chlorhexidine (PERIDEX) 12-02-2016 - [facility] ([id number]) 0.12 % solution 15 mL 15 03-14-2017 mL, Swab, 2 times daily, First dose on [place] 12/02/16 at 1200 Given 12/07/2016 08:22 EDT 15 mL chlorhexidine (PERIDEX) 11-22-2016 - Jose De Jesus White [facility] ([id number]) 0.12 % solution 15 mL 15 11-25-2016 mL, Swab, 2 times daily, First dose on 11/22/16 at 2100 chlorhexidine (PERIDEX) 11-05-2016 [facility][id number][facility] 0.12 % solution Apply 15 11-19-2016 mL to the mouth or throat 2 (two) times a day for 14 days. 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 14 tablet 0 11/11/2016 11/18/2016 clindamycin clindamycin (CLEOCIN) 05-13-2018 - Jazmyne Ray [facility] ([id number]) 300 MG capsule Take 1 05-27-2018 (one) capsule (300 mg total) by mouth 3 (three) times a day for 5 days . 15 capsule 0 05/18/2018 05/27/2018 Discontinued clindamycin (CLEOCIN) 05-12-2018 - Melina Fried [facility] ([id number]) IVPB 600 mg (premix) 05-13-2018 clindamycin (CLEOCIN) 300 01-04-2017 - [facility] ([id number]) MG capsule Indications: 02-03-2017 Chronic osteomyelitis of facial bones (HCC) Take 1 (one) capsule (300 mg total) by mouth 3 (three) times a day. 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 30 capsule 0 11/11/2016 11/25/2016 Discontinued clindamycin (CLEOCIN) 300 Mily Latrice [facility] ([id number]) MG capsule Take 300 mg by mouth 3 (three) times a day. Suspended docusate / 1 tablet, Oral, 2 times 05-13-2018 - [facility] ([id number]) sennosides, fdc daily, First dose on Tue05-28-2018 05/22/18 at 0900 Hold for loose stools Do Not Crush or Chew if administering orally due to bitter taste. May be crushed if given via tube. senna-docusate (SENNA-S) 05-12-2018 - [facility] ([id number]) 8.6-50 mg per tablet 1 05-13-2018 tablet senna-docusate (SENNA-S) 12-07-2016 - Erlinda Long [facility] ([id number]) 8.6-50 mg Take 1 (one) 12-28-2016 tablet by mouth 2 (two) times a day for 15 days. 30 tablet 0 12/07/2016 12/28/2016 Discontinued senna-docusate (SENNA-S) 12-02-2016 - [facility] ([id number]) 8.6-50 mg per tablet 1 12-08-2016 tablet 1 tablet, Oral, 2 times daily, First dose on [place] 12/02/16 at 1200, NOT for abdominal surgery patients. Hold for loose stools. Do Not Crush or Chew if administering orally due to bitter taste. May be crushed if given via tube. Given 12/07/2016 08:21 EDT 1 tablet doxycycline doxycycline hyclate 02-22-2017 - [facility] ([id number]) (VIBRA-TABS) 100 MG 03-14-2017 tablet Indications: Chronic osteomyelitis of facial bones (HCC) Take 1 (one) tablet (100 mg total) by mouth 2 (two) times a day. 14 tablet 0 02/22/2017 03/14/2017 Discontinued doxycycline hyclate (VIBRA-TABS) 100 MG tablet 02-03-2017 [facility] ([id number]) Indications: Chronic osteomyelitis of facial bones (HCC) Take 1 (one) tablet (100 mg total) by mouth 2 (two) times a day. 14 tablet 0 02/03/2017 Active enoxaparin enoxaparin 05-22-2018 - Peyton Andrea [facility] ([id number]) (LOVENOX) syringe 05-27-2018 [place] 30 mg 40 mg, Subcutaneous, 05-12-2018 - 05-13-2018 Jose De Jesus White [facility] ([id number]) Daily, First dose on Tue05/12/18 at 2000 Administer in abdomen unless otherwise directed by prescriber. Notify physician if patient refuses. enoxaparin (LOVENOX) 12-21-2016 - 12-28-2016 [facility] ([id number]) syringe 40 mg 40 mg, Subcutaneous, Daily, First dose on Tue12/21/16 at 2000, Administer in abdomen unless otherwise directed by prescriber. Notify physician if patient refuses. Given 12/25/2016 19:50 EDT 40 mg Abdominal Tissue enoxaparin (LOVENOX) 12-03-2016 - 12-08-2016 Pat Thomas [facility] ([id number]) syringe 40 mg 40 mg, Subcutaneous, Daily, First dose on Tue12/03/16 at 1215, Administer in abdomen unless otherwise directed by prescriber. Notify physician if patient refuses. Given 12/06/2016 08:04 EDT 40 mg enoxaparin (LOVENOX) 11-22-2016 - 11-25-2016 Jose De Jesus White [facility] ([id number]) syringe 40 mg 40 mg, Subcutaneous, Daily, First dose on Tue11/22/16 at 1615, Administer in abdomen unless otherwise directed by prescriber. Notify physician if patient refuses. Famotidine famotidine (PEPCID) 05-26-2018 - Carroll Noyola [facility] ([id number]) tablet 40 mg 05-27-2018 famotidine (PEPCID) injection 05-23-2018 - 05-26-2018 Carroll Gold [facility] ([id number]) 20 mg 20 mg, Oral, Daily, First 05-13-2018 - 05-13-2018 Jose De Jesus White [facility] ([id number]) dose on 05/13/18 at 0900 fentaNYL fentaNYL 05-22-2018 - [place] [facility] (SUBLIMAZE) bolus (SUBLIMAZE) bolus 05-25-2018 ([id number]) from bag 50-100 from bag 50-100 mcg mcg fentaNYL fentaNYL 05-22-2018 - Debra Swanson [facility] (SUBLIMAZE) (SUBLIMAZE) 05-25-2018 [place] ([id number]) infusion 2,500 infusion 2,500 mcg/250 mL in NS mcg/250 mL in NS FLUoxetine 20 mg, Oral, 05-22-2018 - [facility] Daily, First dose 05-27-2018 ([id number]) on 05/22/18 at 0900 20 mg, Oral, Daily, First 05-13-2018 - 05-13-2018 Jose De Jesus White [facility] ([id number]) dose on 05/13/18 at 0900 FLUoxetine (PROZAC) 20 MG [facility] ([id number]) capsule Take 40 mg by mouth daily . 0 Active fluoxetine HCl (PROZAC 05-21-2018 [facility]az[facility]ne Ray [facility] ([id number]) ORAL) Take by mouth daily with breakfast . 0 05/21/2018 Discontinued fluoxetine HCl (PROZAC Jessenia Sahni [facility] ([id number]) ORAL) Take by mouth daily with breakfast . 0 Active fluoxetine HCl (PROZAC Jessenia Bartholow [facility] ([id number]) ORAL) Take by mouth daily with breakfast . 0 Active fluoxetine HCl (PROZAC Jessenia Bartholow [facility] ([id number]) ORAL) Take by mouth daily with breakfast . Active Glucose / Sodium dextrose 5 % and 05-24-2018 - [facility] Chloride sodium chloride 0.45 05-25-2018 ([id number]) % infusion Glycopyrrolate glycopyrrolate 05-22-2018 - Juan Carlos Octavio [facility] (ROBINUL) injection 05-22-2018 ([id number]) 0.2 mg HYDROmorphone HYDROmorphone 05-25-2017 - Ana Harris [facility] (DILAUDID) injection 05-25-2017 ([id number]) 0.25 mg 0.25 mg, Intravenous, Every 5 min PRN, moderate to severe pain, Starting Tue05/25/17 at 1335, For 8 doses, PACU (only), [] Give if fentanyl not effective or not ordered. [] Do not give more than 2.0 mg total. Given 05/25/2017 14:15 EST 0.25 mg HYDROmorphone (DILAUDID) 03-11-2017 - Luis Manuel [facility]is [facility] ([id number]) 1 mg/mL injection 0.5 mg 03-11-2017 0.5 mg, Intravenous, Every 10 min PRN, Pain, Starting 03/11/17 at 0916, For 6 doses, PACU (only), [] Give if fentanyl not effective or not ordered. [] Do not give more than 3 mg total. Given 03/11/2017 09:32 EST 0.5 mg HYDROmorphone (DILAUDID) 12-24-2016 - Yolanda [place] [facility] ([id number]) 1 mg/mL injection 0.25 mg 12-24-2016 0.25 mg, Intravenous, Every 5 min PRN, moderate to severe pain, max of 1.5mg, Starting Tue12/24/16 at 1203, For 6 doses, PACU (only) Given 12/24/2016 12:13 EDT 0.25 mg HYDROmorphone (DILAUDID) 12-22-2016 - Phil [facility] ([id number]) 1 mg/mL injection 0.5 mg 12-22-2016 0.5 mg, Intravenous, Every 10 min PRN, moderate to severe pain, Starting 12/22/16 at 1651, For 6 doses, PACU (only), [] Give if fentanyl not effective or not ordered. [] Do not give more than 3 mg total. Given 12/22/2016 17:42 EDT 0.5 mg HYDROmorphone (DILAUDID) 12-07-2016 - [facility] ([id number]) 1 mg/mL injection 0.5 mg 12-08-2016 0.5 mg, Intravenous, Every 4 hours PRN, moderate to severe pain, Starting Tu12/07/16 at 1015 Given 12/07/2016 14:44 EDT 0.5 mg HYDROmorphone (DILAUDID) 12-06-2016 - [facility] ([id number]) 1 mg/mL injection 0.75 mg 12-07-2016 0.75 mg, Intravenous, Every 3 hours PRN, moderate to severe pain, Starting Tue12/06/16 at 1044 Given 12/06/2016 23:22 EDT 0.75 mg HYDROmorphone (DILAUDID) 12-03-2016 - [facility] ([id number]) 1 mg/mL injection 1 mg 1 12-06-2016 mg, Intravenous, Every 2 hour PRN, moderate to severe pain, Starting Tue12/03/16 at 1121 Given 12/05/2016 20:53 EDT 1 mg HYDROmorphone (DILAUDID) 12-03-2016 - [facility] ([id number]) 1 mg/mL injection 0.5 mg 12-03-2016 0.5 mg, Intravenous, Every 10 min PRN, Pain, Starting Tue12/03/16 at 0946, For 6 doses, PACU (only), [] Give if fentanyl not effective or not ordered. [] Do not give more than 3 mg total. Given 12/03/2016 10:12 EDT 0.5 mg HYDROmorphone (DILAUDID) 11-22-2016 - [facility] ([id number]) 1 mg/mL injection 0.5 mg 11-22-2016 0.5 mg, Intravenous, Every 5 min PRN, moderate to severe pain, Starting Tue11/22/16 at 1400, For 6 doses, PACU (only), [] Give if fentanyl not effective or not ordered. [] Do not give more than 3 mg total. HYDROmorphone 0.25 mg, 05-12-2018 - Suzie Pabon [facility] (DILAUDID) 0.5 mg/mL Intravenous, Every 5 05-12-2018 [place] ([id number]) injection 0.25 mg min PRN, moderate to severe pain, Starting Tue05/12/18 at 1025, For 6 doses, PACU (only) [] Do not give more than 1.5 mg total. HYDROmorphone HYDROmorphone 05-24-2018 - [facility] (DILAUDID) 0.5 mg/mL (DILAUDID) 0.5 mg/mL 05-26-2018 ([id number]) injection 0.5 mg injection 0.5 mg HYDROmorphone (DILAUDID) 05-22-2018 - Yolanda Lopez [facility] ([id number]) 0.5 mg/mL injection 0.5 05-22-2018 mg HYDROmorphone (DILAUDID) 05-21-2018 - Julio Cesar Brewer [facility] ([id number]) 0.5 mg/mL injection 0.5 05-21-2018 Jorje mg HYDROmorphone (DILAUDID) 05-21-2018 - [facility] ([id number]) 0.5 mg/mL injection 0.5 05-21-2018 mg hypochlorite sodium hypochlorite 12-22-2016 - Quique Mccallum [facility] (DAKIN'S 12-24-2016 [place] ([id number]) (HALF-STRENGTH)) 0.25 % external solution Topical, 2 [...] tube. ibuprofen (ADVIL,MOTRIN) 03-18-2017 - Jazmyne Ray [facility] lt ([id number]) 600 MG tablet Take 600 mg 05-27-2018 by mouth every 8 (eight) hours as needed . 0 03/18/2017 05/27/2018 Discontinued ibuprofen (ADVIL,MOTRIN) 03-18-2017 Jessenia Sahni [facility] lth ([id number]) 600 MG tablet Take 600 mg by mouth every 6 (six) hours as needed . 0 03/18/2017 Active ibuprofen (ADVIL,MOTRIN) 03-11-2017 - [facility] (28303) tablet 600 mg 600 mg, Oral, 03-14-2017 Every 8 hours PRN, mild pain, Starting 03/11/17 at 1105, Give with Food Do Not Crush or Chew if administering orally due to bitter taste. May be crushed if given via tube. Given 03/11/2017 18:45 EST 600 mg ibuprofen (ADVIL,MOTRIN) 12-07-2016 - [facility] ([id number]) 600 MG tablet Take 1 (one) 01-11-2017 tablet (600 mg total) by mouth every 6 (six) hours for 14 days. 56 tablet 0 12/28/2016 01/11/2017 Active ibuprofen (ADVIL,MOTRIN) 12-06-2016 - Ovi Chuckdwaine [facility] (75276) tablet 600 mg 600 mg, Oral, 12-08-2016 Every 6 hours, First dose on Tue12/06/16 at 1200, Give with Food Do Not Crush or Chew if administering orally due to bitter taste. May be crushed if given via tube. Given 12/07/2016 23:41 EDT 600 mg ibuprofen (ADVIL,MOTRIN) 12-02-2016 - [facility] (42574) tablet 200 mg 200 mg, Oral, 12-06-2016 Every 6 hours PRN, fever 100.4 F or greater, headaches, mild pain, Starting Daphney 12/02/16 at 1111, Give with Food Do Not Crush or Chew if administering orally due to bitter taste. May be crushed if given via tube. Given 12/02/2016 13:19 EDT 200 mg ibuprofen (ADVIL,MOTRIN) 12-08-2016 Jorge Swift [facility] ([id number]) 200 MG tablet Take 200 mg by mouth every 6 (six) hours as needed for pain. 12/08/2016 Discontinued iopamidol iopamidol 11-10-2017 - Duyen Marie [facility] ( 86558) (ISOVUE-370) 76 % 11-10-2017 Ben injection 75 mL iopamidol (ISOVUE-370) 76 % 05-27-2017 - 05-27-2017July Pepper Ann rs [facility] ([id number]) injection 75 mL 75 mL, Intravenous, Once in imaging, contrast, Starting 05/27/17 at 0726, For 1 dose Contrast Administered 05/27/2017 08:56 EST 75 mL iopamidol (ISOVUE-370) 76 % 02-03-2017 - 02-03-2017 Jazmyne Oseguera in [facility] (75864) injection 75 mL 75 mL, Intravenous, Once in imaging, contrast, Starting Daphney 02/03/17 at 1120, For 1 dose Contrast Administered 02/03/2017 11:20 EDT 60 mL ketorolac ketorolac (TORADOL) 11-23-2016 - Ana Harris [facility] ([id number]) injection 30 mg 30 11-25-2016 mg, Intravenous, Every 6 hours, First dose on Tue11/23/16 at 1200, For 48 hours, Give with Food Labetalol 5 mg, Intravenous, 05-12-2018 - Suzie Rosario [facility] (04986) Every 5 min PRN, SBP 05-12-2018 greater than 160 or DBP greater than 90, Starting 05/12/18 at 1025, For 4 doses, PACU (only) [] Do not give more than 20 mg total. [] Hold for HR less than 50. lidocaine lidocaine (XYLOCAINE) 05-22-2018 - Ethan Cox [facility] ([id number]) 4 % (40 mg/mL) 05-22-2018 external solution lidocaine 1% (XYLOCAINE) 10 05-25-2017 - 05-25-2017 Christian Powell [facility] (97955) mg/mL (1 %) injection 0.2 mL 0.2 mL, Intradermal, Once, 05/25/17 at 1045, For 1 dose, Pre-Procedure, Around site prior to IV insertion. Given 05/25/2017 10:12 EST 0.2 mL lidocaine HCl (LIDOPIN) 3 % 05-27-2018 [facility] (68224) Crea Apply 1 application topically . 0 05/27/2018 Discontinued morphine 4 mg, Intravenous, 05-12-2018 - Jose De Jesus White [facility] ([id number]) Every 2 hour PRN, 05-13-2018 moderate to severe pain, Starting 05/12/18 at 1327 morphine 4 mg 4 mg, 05-28-2017 - Nishant Maradiaga [facility] ([id number]) Intravenous, Every 10 min 05-28-2017 PRN, Pain, Starting 05/28/17 at 0905, For 5 doses, PACU (only), [] Give if fentanyl not effective or not ordered. [] Do not give more than 20 mg total. Given 05/28/2017 09:12 EST 4 mg morphine 4 mg 4 mg, 03-11-2017 - [facility] ( 25452) Intravenous, Every 2 hour 03-14-2017 PRN, moderate to severe pain, Starting 03/11/17 at 1105 Given 03/11/2017 23:40 EST 4 mg morphine 2 mg 2 mg, 12-24-2016 - [facility] ( 20247) Intravenous, Every 2 hour 12-28-2016 PRN, moderate [...] mg, 11-22-2016 - Jose De Jesus Schulz [facility] ( 74657) Intravenous, Every 2 hour 11-25-2016 PRN, moderate to severe pain, Starting 7/31/17 at 1525 naloxone (NARCAN) naloxone (NARCAN) 05-22-2018 - Campos Pepper Cristina [facility] (71385) injection 0.1 mg injection 0.1 mg 05-27-2018 naloxone (NARCAN) injection 0.1 mg 05-12-2018 - 05-13-2018 [facility] ([id number]) Ondansetron ondansetron (ZOFRAN) 05-22-2018 - Sarah Esqueda [facility] (31140) injection 4 mg 05-27-2018 Ace 4 mg, Intravenous, Every 6 05-12-2018 - 05-13-2018 Jose De Jesus White [facility] (76413) hours PRN, nausea, vomiting, Starting Tue05/12/18 at 1327 Oxycodone Er 10 Mg oxyCODONE 12-21-2016 - [facility] h Tablet,Crush (OXYCONTIN) 12 hr 12-28-2016 (05559)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 KZGWV9CJS4wbQS6QJ wUJ3HHCMrcFVOaLZx klZQIDUzOZ3b8BMLQ QT4yZPvyJwm8QX18K GZsZHJzbHQgXCcxY3 19XHBsYWluXGYxXGZ zMjBcbGFuZzEwMzNc aGljaFxmMVxkYmNoX YBjWAtaN9zlGwRqD5 VyPLNzMlYkvSLiV0w gIiBhbmQgZGVzaWdu YXRlZCAiXHBsYWluX VYmMMRaRuFoxP9wxM retCteoZ0xQtJkXkD fSCugGR9uHISnX2av kKZhUQHdXLZiZ6lvS tJdwX2atIkcSJxxDw FcZnMyMFxsdHJjaCA iXHBsYWluXGYyXGZz SgLqSODzRNFdm55dz WM6xeQwFzRaLRJbWQ H8XHVnAAY9QHVoSFT bvGMpamNoA1RpEEOb eX1eVQJjjRbnfMKtr mHpTKZ0eMQokDjhBz OjD43xnhXyUQZqkpF jyIayn3xtHeLyOJBx shOeKUNse0RjUmXaZ GkfYZJiv3BdIKtkPI E2Bh9ftJReVFWmv5Q vD1Nez8KdGYphmPez RVQdn30xe73ntR1qN HBhclxwYXIgVlMvS0 acB575QUvaQDNwkWW iQRxxk4HlTUB5LY6b oqQ5aZ4fOEZmuoUmi o6oTBXmbTsoJba4ED SilTZqCS2ukLojNKy odXTPg0ZpqBIuvVMi HTO5OiIkD9byohEuw wy9ZUByovWqHJBiOJ HmG42dgG1wqARdJK5 TZCHcZwS5ZhyoWLW8 Anion gap molar conc 19 10 - 20 mmol/L 9 [facility] (97469) Calcium mass conc 8.1 8.4 - mg/dL Low 05-24-2018 [facility] (45628) Chloride molar conc 109 98 - 108 mmol/L High 05-24-2018 [facility] (21798) Creatinine mass conc 1.74 0.5 - 1.3 mg/dL High 9 [facility] (75078) GFR/1.73 sq M The eGFR should 05-24-2018 [facility] predicted among be used for (4 6560) non-blacks MDRD vol monitoring renal rate/area (S/P/Bld) function only and not for medication dosing. GFR/1.73 sq 48 >=60 Low 05-24-2018 [facility]th M.predicted CKD-EPI mL/min/1. (20574) vol rate/area 73 m2 (S/P/Bld) Glucose mass conc 74 65 - 99 mg/dL 05-24-2018 [facility] (84956) HCO3 molar conc 19 21 - 32 mmol/L Low 05-24-2018 [facility] (40933) Interpretation and Abnormal 05-24-2018 [facility] review of laboratory (10618) results Potassium molar conc 4.5 3.5 - 5.1 mmol/L 9 [facility] (59051) Sodium molar conc 142 135 - 145 mmol/L 05-24-2018 [facility] (30863[facility] Urea nitrogen mass 18 8 - 25 mg/dL 05-24-2018 [facility] conc (50303) Urea 10.3 OTH - OTH mg/mg 05-24-2018 [facility] h nitrogen/Creatinine (26738) mass ratio Vancomycin mass conc 22.2 mcg/mL 9 [facility] (28349) No established 05-24-2018 [facility] reference range. (43 215) No panel information on 2018-05-23 Vancomycin mass conc 34.4 mcg/mL 9 [facility] (65602) No established 05-23-2018 [facility] reference range. (43 215) Glucose mass conc 88 65 - 99 mg/dL 05-23-2018 [facility] (01129) Interpretation and Normal 05-23-2018 [facility] review of laboratory (65985) results Case Report Surgical Pathology Report Case: [id number] 05-23-2018 [facility] Authorizing Provider: Felix De Leon MD Collected: 05/22/2018 10:00 AM ([id number]) Ordering Location: [facility] Received: 05/22/2018 10:30 AM Periop Pathologist: Luis Manuel Flores MD Specimen: Bone, Please Specify, left jaw bone Pathology report [id number] 2018 [facility] final diagnosis PcZuOQHnRPHsj5vy ([id number]) Narrative ZGVmbGFuZzEwMzNc ZnRuYmpcdWMxXGRl RsUow9xzr823fOPp k1zyIGUsJjV6pJNu ONXujJWdW163LQFx MLour4ngc9QhNVKa eCPet7T8YTFUfysw rSg2oGzuL20pi0K6 UnyhH0jhUUVhKGvh ZWVuMFxibHVlMCA7 UYKsZHB0VNydyiGd wmU5PTozfHLoUoL8 SWz1o9nbyKqbQIDa UUU6c4fhACtdleKc RL1xvc0dxTs3o6yv czEgRGVmYXVsdCBQ KOBtX4MehUqyAk5c tDo8yJqyYuwsPEY3 Fny8WX9bid70pxo5 fVxwYXBlcncxMjI0 MFxwYXBlcmgxNTg0 MFxtYXJnbDcyMFxt YXJncjcyMFxtYXJn dDB1KPGacUVyP5Qm NDQwXGhlYWRlcnk3 CcXtUr5vwVZvtFCi tz4sud79NCW4q7Qw dAlyNJO8BWF6NxIz Pr2dbHYvNBJkBS8m NnNmlOUkWCPleu79 kUesHXikkjPucC5v YmRiXGZldDRcYWVu UJ1vuBJyUSGcoH6b cmxjXHBnYnJkcmhl LEFcfEmqnhQpFu2s fYqsPRQ0EJnjD4rq uA7aCpH2UYjmP6zu sZ0rKRb5VAlimNS0 BXFucX1lXX7uqumw j5wyOpXzYM1njoys n7ybQpKcOW9kfka6 f4niXQT5SGovWNZk PcS7qhF4OWZefVTp YDSxsTpcOVewu588 CVD0HKjbTmpwQCce XHBnbmNvbnRccGdu ZGVjXHBsYWluXHBs YWluXGYwXGZzMjBc eJitgGpqmJ6oIpNw ZnMyMFxwbGFpblxm MVxmczIyXGxhbmcx JGLiFZvyZ0hxUeRo SWVcmAhcHFloi4Sw XGYxXGNmMVxmczIy XGJccGFyIExlZnQg wkE6KRHmmnEoPBAe LkUlDDYbRA71Zoov YXJccGFyXGxpNzIw XHBsYWluXGYwXGZz ZrKneQxmzI0pAjIf HbNlCspiBG6lGSSj G2wtwZYqNBSiMYKj U4ptQnVqoY7vdXmp MVxjZjFcZnMyMlxi ECLnhJQbEV9yoYTe tAukhTm0aBTaDVFd oyznrASbwKsanN3e ZjBcZnMyMFxwbGFp blxmMVxmczIyXGxh siocSQBgRBvsF1uk ZjFcZGJjaFxmMVxs u6TyCYMtVXWyAFpp czIyXGJccGFyXHBs YWluXGYxXGZzMTZc bGFuZzEwMzNcaGlj aFxmMVxkYmNoXGYx NOpwE6qcUjWaZ2Lg WOWiUTHbPcFAW540 u9ykfWHucrnuLShw czIyXGxhbmcxMDMz EVouD3frDqCzDIEa aGpcEKhds7GsQTJx XGNmMVxmczIyXGJc cGFyXHBhclxwbGFp blxmMFxmczIwXHBh cn0= Pathology report j1jilQTqQNFhoCVm 2018 [facility] gross observation RhNnZIGiIUAfz1ap ([id number]) Narrative ZGVmbGFuZzEwMzNc ZnRuYmpcdWMxXGRl GdPzq1zpp998iDDg d0ygKHJbZzM7jVJm UKMemBThP295XWRd WErvvm3eDT9bVKNc yRFgp7B1EMGEirju xDc6e0rrXwKaWhX0 hQPuNYueR4ztnfYk xLVlZESvDMf6pA69 RRNenU1lnSPlSSzb cmVkMFxncmVlbjBc Ouz9UQTvB6dhFPYy ALPfH1JaQX1oSPZw Qhd3CKJ4BPD9FBCe ZDIyMVxncmVlbjI0 MTonsWJaAlQ6WKs9 a6uevRcdBZZoMTE1 d7jgGZeffhPvTK0k tk2sdRe8u7xwppPp RGVmYXVsdCBQYXJh G0SqxCqzHf2icCm1 uWrrLvksTEZ3Ewc2 VI3xdj31vvw1nHhc IFFltmjzOwE2AImz HWQlvrcoFVv0HCsn YXJnbDcyMFxtYXJn cjcyMFxtYXJndDE0 USJvpHKzV8YkJPQy HBdfJFSpwxp1VlPa Tx8btVEefNTvrb6n xr69YMZ2q9HflHul NLF1DOF8QrGwCb8p oPDpLXDfMJ2nCyVm eLZoODKjuw91bCet HZxuqcYmmP7rZnBw XGZldDRcYWVuZGRv F1vlKnCoptAyL3qb J5DfHXJsOVYsYLGr WtPtypQjo0Ubo2Hi oFThzTy7l2mxRBAq VMZxmVnxd7ciHUC4 KLGtB6Q2lAPye4xc ZPmxKDUawHX6crlq UDtoFQKlpoI5fxha QQyvKWMrmDJ9egB4 DPXpbEIlK6OfgY9g NDQwXGhlYWRlcnk3 PaHwVm0euMPnlQPo u9NnbTAlSGhdH92c t195XWPddrKdQ5kg bGFpblxwbGFpblxm MFxmczIwXHFsXHBs YWluXGYwXGZzMjBc qGftmR2dKtIaYxCo POwvKJ2cQFGtS8vj qJIuVVCaFOYyD9wc VdBoxE4rjJoxKTcz ZjFcZnMyMFxsdHJj aCBSZWNlaXZlZCBp daGoe6BpAKhiuuBs YWJlbGVkICJccGxh sP7sBaCfDnJoVXzi AA2hAMRuL8pfoYLa VYLnGJKsX1tlHnPf qR1deRibBErnGzEm FrYvJJswrd24PSD9 a5ekqSNxFMprJzap dJCadpM5KVkFUCXI BLvDEcWxWK0yKBzZ TktCRUdJTnwzODAw WZgqgVUVQPpIY8a1 PNANVB4nSJwgWqq7 AO31IWVhHDWhlVLl IBnsZ449PJNhRZmy XGYxXGZzMjBcbGFu ZzEwMzNcaGljaFxm MVxkYmNoXGYxXGxv D8luBoQiG9ImVDIb MjBccHJvdGVjdCBU IMooc3SwEKVmiMry Z1bcqOXtiqiaEVmk czIwXGxhbmcxMDMz QTnqZ9slUuXoXLRr iDtcPVlgr5NhOQYn XGNmMVxmczIwXHBy i8XyF5M7IBBgDOut i7egCEWmLWuba8Sn FTpPHJVGZS8DOR9z eRB4OUwRT4JRTRpd ODAwMXwwfERCTElO X2t1RRGYVU6fPGiu Kzp7PW66DLKdSARm cFHkIUeqV273RSDz YWluXGYxXGZzMjBc bGFuZzEwMzNcaGlj aFxmMVxkYmNoXGYx KVxwB2saOkJnH6Fw SKYcFhUfzQJmE3vu IiBhbmQgZGVzaWdu YXRlZCAiXHBsYWlu XGYyXGZzMjAgbGVm xPHaUPyweKhgwZ0m ZcMcDaNvCIbyJT7w LMZgA5tcwZQpCBLr FBIbU6ydEuLzwT4i aFxmMVxjZjFcZnMy MFxsdHJjaCAiXHBs YWluXGYyXGZzMjAg ELknQGVcziQdP9Zv GITqoeDcs09ln7Zw Ht0eODkeTn9iETqr UA48EKvfAE13BTEz LiAgVGhlIHNwZWNp sGRlIWoyRZDus6Zk dGVkLiAgQWxsIDIv HN9mZEWrH8EbC1cx aWVkLlxwYXJccGFy JVxYSm0PLOviHLVv IFxwYXJccGFyIEdy y7WlZJQ4FI6netB3 cL2zEJKztjYpmg1x MQLuxQlwGec9YQHz nDYvNR9gfVaqJVqt fIVHr8UfjLHkmNCt NEA5UdNqY5yqloZu rjd1YVNyvfKwPAUc SILaR23anG7fyMMu PX8YLWNtFtP9EWDg cn0= Pathology report e0mljBVaWNNirXBt 2018 [facility] microscopic TeSpKDFwQOTml1jm ( [id number]) observation ZGVmbGFuZzEwMzNc Narrative Other ZnRuYmpcdWMxXGRl stain JnSwh3sfk732eSGq a9ciKYFdHyB2sJDc PVYnsQRpI525DGJa DQhty0eya7ZnBSQt aFDqh1B4TOKImhls zWs9iQyaT22fe8G7 MyoxB7gpKGQeBJAv A2AhAL2jEECuZwj5 OYY3CYH0YDHmAQOk G5RwLG9zTAHzgRBn FTq4o3agfBqiTNNa PIR8c7phLAnznkAy RZ1uft5otEm8w0bh czEgRGVmYXVsdCBQ LQVeO8LydAzpKx0l bEx3pSfoRjvtKRR0 Lpz2QF6auz36jkh0 fVxwYXBlcncxMjI0 MFxwYXBlcmgxNTg0 AFgeBBByzJU0HHTo hGUtA5IoPVEdUK9v wyh7FBF5RRqbLYVq ZwH8GADlwXOdQFDb qHitWLmsk758TWH6 WdHbEJ8rI4Hbq5Q9 dX1ldIYnTORqaXJs ZmMtFALvrl4lrQEs JIlbu7FpXQN3fhM8 qCYseVUpXKOzOW63 Hrowl6MzNpapSSG2 LTWpqoKhc7Pgt9pa CbTiukMuX5xnH4Yu ZHJoZWFkXHBnYnJk gbQed3Oqb2IwgOZe dFh5x3qjYBRwKLNq eHxwm6gmSTU3RPAz O9L1yZAut8paSXvo EVYtwOQ5mtR5MFGw bYNeH4PyiD2qQLAb NU8ousn1a0fiWZN3 BJrtXBXvUyF3htC4 NDBcaGVhZGVyeTcy IAwug638HWV8LcLg IXZvq8RlK6UrkUhl Q73zqSauI68yYMNw tSxelO9gaHvxnI4s ZjBcZnMyNFxxbFxw bGFpblxmMVxmczIw XGxhbmcxMDMzXGhp Q9jvEcTfYOUbaVrk LIwww9DnQPYlSLWy FpUdUIsecp1zR97q aWMgZXhhbWluYXRp u06jaLFlgRHxCf7o bWVkLlxwYXJ9 Erythrocyte 13.9 11.6 - 14.8 % 05-23-2018 [facility] ealth distribution width ( 34780) Entitic volume (RBC) Hematocrit Volume 26.5 41 - 53 % Low 05-23-2018 [facility] Fraction (Bld) (4321 5) Hemoglobin mass conc 8.6 13.5 - 17.5 g/dL Low 019 [facility] (Bld) (71102) Interpretation and Abnormal 05-23-2018 [facility] review of laboratory (75546) results MCH Entitic mass 28.9 26 - 34 pg 05-23-2018 [facility] (RBC) (54747) MCHC mass conc (RBC) 32.5 31 - 37 g/dL 9 [facility] (63122) MCV Entitic volume 88.9 80 - 100 fL 05-23-2018 [facility] (RBC) (49280) Nucleated RBC #/vol 0.00 OTH - OTH 10*3/uL 05-23-2018 [facility] (Bld) (63751) Nucleated RBC/100 0.0 % 05-23-2018 [facility] WBC Ratio (Bld) (432 15) Platelet mean volume 10.6 9 - 15.5 fL 9 [facility] Entitic volume (Bld) (23562) Platelets #/vol 419 OTH - OTH 10*3/uL High 05-23-2018 [facility] (Bld) (69411) RBC #/vol (Bld) 2.98 OTH - OTH 10*6/uL Low 05-23-2018 [facility] (38034) WBC #/vol (Bld) 8.47 OTH - OTH 10*3/uL 05-23-2018 [facility] (61383) Anion gap molar conc 17 10 - 20 mmol/L 9 [facility] (32516) Calcium mass conc 8.3 8.4 - 10.2 mg/dL Low 05-23-2018 [facility] (69141) Chloride molar conc 106 98 - 108 mmol/L 05-23-2018 [facility] (59353) Creatinine mass conc 1.65 0.5 - 1.3 mg/dL High 9 [facility] (98195) GFR/1.73 sq M The eGFR should 05-23-2018 [facility] predicted among be used for (4 9164) non-blacks MDRD vol monitoring renal rate/area (S/P/Bld) function only and not for medication dosing. GFR/1.73 sq 52 >=60 Low 05-23-2018 [facility] lth M.predicted CKD-EPI mL/min/1.73 (86010) vol rate/area m2 (S/P/Bld) Glucose mass conc 79 65 - 99 mg/dL 05-23-2018 [facility] (53411) HCO3 molar conc 20 21 - 32 mmol/L Low 05-23-2018 [facility] (52726) Interpretation and Abnormal 05-23-2018 [facility] review of laboratory (60728) results Potassium molar conc 4.4 3.5 - 5.1 mmol/L 9 [facility] (15609) Sodium molar conc 139 135 - 145 mmol/L 05-23-2018 [facility] (37530) Urea nitrogen mass 21 8 - 25 mg/dL 05-23-2018 [facility] conc (86691) Urea 12.7 OTH - OTH mg/mg 05-23-2018 [facility] h nitrogen/Creatinine (97110) mass ratio Base excess -1.6 OTH - OTH mmol/L 05-23-2018 [facility] Calculated molar (43 215) conc (Bld) Calcium.ionized mass 4.5 4.5 - 5.3 mg/dL 9 [facility] conc (54616) Carboxyhemoglobin/He 1.0 OTH - OTH 9 [facility] moglobin.total mass (53311) fraction (BldA) Comment: Reference Ranges: [facility] Non-smokers:<1.5% Smokers:1.5-5.0% Heavy Smokers:5.0-9.0% CO2 ppres (Bld) 37.7 OTH - OTH mm[Hg] 05-23-2018 [facility] (60608) Glucose mass conc 79 65 - 99 mg/dL 05-23-2018 [facility] (49179) HCO3 molar conc (Bld) 22.5 22 - 26 mmol/L 05-23-19 19 [facility] (72906) Hematocrit Volume 26.3 41 - 53 % Low 05-23-2018 [facility] Fraction (BldA) (432 15) Hemoglobin mass conc 8.5 13.5 - 18 g/dL Low 9 [facility] (Bld) (71810) Inhaled oxygen 30 %/L 05-23-2018 [facility] concentration (86787 ) Interpretation and Abnormal 05-23-2018 [facility] review of laboratory (17421) results Lactate molar conc 0.6 0.6 - 2 mmol/L 05-23-2018 [facility] (18249) Methemoglobin/Hemoglo 0.6 0 - 2 % 05-23-19 19 [facility] bin.total mass (4321 5) fraction (BldA) Oxygen ppres (Bld) 131 OTH - OTH mm[Hg] High 05-23-2018 [facility] (46303) Oxyhemoglobin/Hemoglo 97.1 94 - 98 % 05-23-19 19 [facility] bin.total mass (4321 5) fraction (BldA) PEEP Respiratory 5 05-23-[address] [facility] (48423) pH (Bld) 7.39 OTH - OTH [pH] [facility] Pot[facility] molar conc 3.7 3.5 - 5.1 mmol/L 9 [facility] (15952) SaO2% mass fraction 98.7 92 - 99 % 05-23-2018 [facility] (BldA) (15764) Sodium molar conc 134 135 - 145 mmol/L Low 05-23-2018 [facility] (90770) Tidal volume setting 430 9 [facility] Ventilator (01368) Type of Oxygen Ventilator 05-23-2018 [facility] saturation device (4 9575) ABO and Rh group Nom O Positive 05-23-19 [facility] (Bld) (18096) Blood group antibody Negative 9 [facility] screen Ql (70975) Specimen Expires 05/26/2018 23:59 2018 [facility] EST (82646) Anion gap molar conc 15 10 - 20 mmol/L 9 [facility] (95972) Calcium mass conc 8.3 8.4 - mg/dL Low 05-23-2018 [facility] 10.2 (67576) Chloride molar conc 102 98 - 108 mmol/L 05-23-2018 [facility] (29486) Creatinine mass conc 1.63 0.5 - 1.3 mg/dL High 9 [facility] (26387) GFR/1.73 sq M The eGFR should 05-23-2018 [facility] predicted among be used for (4 1415) non-blacks MDRD vol monitoring renal rate/area (S/P/Bld) function only and not for medication dosing. GFR/1.73 sq 52 >=60 Low 05-23-2018 [facility] M.predicted CKD-EPI mL/min/1. (71803) vol rate/area 73 m2 (S/P/Bld) Glucose mass conc 77 65 - 99 mg/dL 05-23-2018 [facility] (42812) HCO3 molar conc 21 21 - 32 mmol/L 05-23-2018 [facility] (76486) Interpretation and Abnormal 05-23-2018 [facility] review of laboratory (69648) results Potassium molar conc 4.1 3.5 - 5.1 mmol/L 9 [facility] (87284) Sodium molar conc 134 135 - 145 mmol/L Low 05-23-2018 [facility] (80796) Urea nitrogen mass 21 8 - 25 mg/dL 05-23-2018 [facility] conc (40336) Urea 12.9 OTH - OTH mg/mg 05-23-2018 [facility] h nitrogen/Creatinine (23996) mass ratio Glucose mass conc 83 65 - 99 mg/dL 05-23-2018 [facility] (66336) Interpretation and Normal 05-23-2018 [facility] review of laboratory (09749) results xr chest pa/ap on 2 XR CHEST PA/AP EXAMINATION: Normal 05-22-2018 [facility] SINGLE XRAY VIEW OF THE CHEST Center (77143) 05/22/2018 1:17 pm COMPARISON: Chest radiograph 03/11/2017. [...] SUPINE XRAY VIEW(S) OF THE ABDOMEN Center (22791) VIEW 05/22/2018 1:17 pm COMPARISON: [facility] 08/26/2016. [...] tube in the gastric body and 05-22-2018 [facility] (30681) side port in the gastric fundus. Non-specific bowel gas pattern without evidence of obstruction. Workstation ID: [id number] EXAMINATION: SINGLE SUPINE XRAY VIEW(S) OF THE 05-22-2018 [facility] (11296) ABDOMEN 05/22/2018 1:17 pm COMPARISON: [facility] 08/26/2016. HISTORY: ORDERING SYSTEM PROVIDED HISTORY: [...] 05/22/2018 3:51 PM EST EX AMINATION: 05-22-2018 [facility] ([id number]) SINGLE SUPINE XRAY VIEW(S) OF THE ABDOMEN 05/22/2018 1:17 pm COMPARISON: [facility] 08/26/2016. HISTORY: ORDERING SYSTEM PROVIDED HISTORY: [...] Endotracheal tube approximately 2 cm above 05-22-2018 [facility] (58785) the jerardo. 2. No acute process. Workstation ID: [id number] EXAMINATION: SINGLE XRAY VIEW OF THE CHEST 05-22-2018 [facility] (83973) 05/22/2018 1:17 pm COMPARISON: Chest radiograph 03/11/2017. [...] 05/22/2018 3:50 PM EST EX AMINATION: 05-22-2018 [facility] (00225) SINGLE XRAY VIEW OF THE CHEST 05/22/2018 [...] AM EST This order has been 05-22-2018 [facility] (68504) auto-finalized and does not contain a result. This order has been auto-finalized and does not contain a result. 05-22-2018 [facility] ([id number]) No panel information on 2018-05-21 Basophils #/vol (Bld) 0.05 OTH - OTH 10*3/uL 05-21-19 19 [facility] ([id number]) Basophils/100 WBC (Bld) 0.3 % 2018 [facility] (07105) Eosinophils #/vol (Bld) 0.08 OTH - OTH 10*3/uL 2018 [facility] ([id number]) Eosinophils/100 WBC (Bld) 0.5 % 04-26 [facility] (99165) Erythrocyte distribution 13.7 11.6 - 14.8 % [facility] (34555) width Entitic volume (RBC) Hematocrit Volume Fraction 33.6 41 - 53 % Low [facility] (36819) (Bld) Hemoglobin mass conc (Bld) 11.1 13.5 - 17.5 g/dL Low 0 05-21-2018 [facility] (92990) Immature granulocytes 0.13 OTH - OTH 10*3/uL 05-21-19 19 [facility] (33892) #/vol (Bld) Immature granulocytes/100 0.70 % 04-26 [facility] (76676) WBC (Bld) Comment: The IG parameter is the perc entage of metamyelocytes, myelocytes, and promyelocytes. Interpretation and Abnormal 05-21-2018 [facility] review of (18263) laboratory results Lymphocytes #/vol 2.13 OTH - OTH 10*3/ 05-21-2018 [facility] (Bld) uL (65314) Lymphocytes/100 12.1 % 05-21-2018 [facility] WBC (Bld) (01196) MCH Entitic mass 28.9 26 - 34 pg 05-21-2018 [facility] (RBC) (27930) MCHC mass conc 33.0 31 - 37 g/dL 05-21-2018 [facility] (RBC) (90098) MCV Entitic volume 87.5 80 - 100 fL 05-21-2018 [facility] (RBC) (38246) Monocytes #/vol 2.17 OTH - OTH 10*3/ High 05-21-2018 [facility] (Bld) uL (17474) Monocytes/100 WBC 12.4 % 05-21-2018 [facility] (Bld) (86130) Neutrophils #/vol 13.00 OTH - OTH 10*3/ High 05-21-2018 [facility] (Bld) uL (37729) Neutrophils/100 74.0 % 05-21-2018 [facility] WBC (Bld) (04944) Nucleated RBC 0.00 OT - [facility] 10*3/ 05-21-2018 [facility] eah #/vol (Bld) uL (10711) Nucleated RBC/100 0.0 % 05-21-2018 [facility] WBC Ratio (Bld) (432 15) Ovalocytes LM Ql Rare 05-21-2018 [facility] (Bld) (69441) Platelet mean 9.5 9 - 15.5 fL 05-21-2018 [facility] volume Entitic (4321 5) volume (Bld) Platelets #/vol 524 OT - OT 10*3/ High 05-21-2018 [facility] (Bld) uL (48186) Platelets LM Ql Increased Normal Abnormal 05-21-2018 [facility] (Bld) (70852) Polychromasia LM Rare 05-21-2018 [facility] Ql (Bld) (31174) RBC #/vol (Bld) 3.84 OT - [facility] 10*6/ Low 05-21-2018 [facility] uL (83546) WBC #/vol (Bld) 17.56 OT - [facility] 10*3/ High 05-21-2018 [facility] uL (57746) INR Coag RelTime 1.1 [facility] {INR} 05-21-2018 [facility] (PPP) (36050) Interpretation and Normal 05-21-2018 [facility] review of (61898) laboratory results Prothrombin time 14.1 [facility] s 05-21-2018 [facility] (PT) Coag time (4321 5) (PPP) During the 05-21-2018 [facility] induction phase of ( 55217) oral anticoagulation, the INR may not reflect the anticoagulation status of the patient. Therapeutic ranges for INR's are: Most clinical situations: INR 2.0-3.0 Mechanical Prosthetic Valve: INR 2.5-3.5 Critical: INR >5.0 Anion gap molar 18 10 - 20 mmol/ 05-21-2018 [facility] conc L (19104) Calcium mass conc 9.3 8.4 - 10.2 mg/dL 05-21-2018 [facility] (50284) Chloride molar 98 98 - 108 mmol/ 05-21-2018 [facility] conc L (00339) Creatinine mass 0.74 0.5 - 1.3 mg/dL 05-21-2018 [facility] conc (40890) GFR/1.73 sq M The eGFR should be 019 [facility] predicted among used for monitoring (02321) non-blacks MDRD renal function only vol rate/area and not for (S/P/Bld) medication dosing. GFR/1.73 sq 116 >=60 05-21-2018 [facility] lth M.predicted mL/min/1.7 (60526) CKD-EPI vol 3 m2 rate/area (S/P/Bld) Glucose mass conc 98 65 - 99 mg/dL 05-21-2018 [facility] (36958) HCO3 molar conc 23 21 - 32 mmol/ 05-21-2018 [facility] (14526) Interpretation and Normal 05-21-2018 [facility] review of (81445) laboratory results Potassium molar 4.0 3.5 - 5.1 mmol/ 05-21-2018 [facility] conc L (15637) Sodium molar conc 135 135 - 145 mmol/ 05-21-2018 [facility] L (21842) Urea nitrogen mass 9 8 - 25 mg/dL 05-21-2018 [facility] conc (96106) Urea 12.2 OTH - OTH mg/mg 05-21-2018 [facility] h nitrogen/Creatinin ( 52979) e mass ratio xr fluoroscopy time on 2018-05-12 XR FLUOROSCOPY TIME This is an auto finalized re sult. Please refer to patient chart for Normal 05-12-2018 [facility] further information. Center (95538) further information. further information. Comment: Order Comment: Reason for ex am?:intra op Injury/Trauma or Illness?:Il lness/Other How long have you had these symptoms (acute/chronic)?:Unknown Type of Exam?:Unknown Additional signs and symptom s?:intra op Fluoro time in minutes:1.17 Fluoro dose in mGy?:10.66 xr femur left 2+ views (standard) on 2018-05-12 XR FEMUR LEFT 2+ EXAMINATION: Normal 05-12-2018 [facility] VIEWS (STANDARD) TWO XRAY VIEWS OF THE LEFT FEMUR Center ([id number]) 05/12/2018 10:47 am COMPARISON: 03/28/2018 HISTORY: ORDERING [...] on 2018-05-12 EXAMINATION: TWO XRAY 05-12-19 19 [facility] VIEWS OF THE LEFT FEMUR ([id number]) 05/12/2018 10:47 am COMPARISON: 03/28/2018 HISTORY: ORDERING [...] 05/12/2018 12:10 PM EST E XAMINATION: 05-12-2018 [facility] TWO XRAY VIEWS OF THE LEFT FEMUR ([id number]) 05/12/2018 10:47 am COMPARISON: 03/28/2018 HISTORY: ORDERING [...] ID: [id number] 1. No acute osseous 05-12-2018 [facility] abnormality of the left (98969) femur. 2. Postsurgical skin josé in place. Workstation ID: [id number] Erythrocyte 14.6 11.6 - % 05-12-2018 [facility] lt distribution width 14.8 ( 10007) Entitic volume (RBC) Hematocrit Volume 39.5 41 - 53 % Low 05-12-2018 [facility] Fraction (Bld) (4321 5) Hemoglobin mass 13.0 13.5 - g/dL Low 05-12-2018 [facility] conc (Bld) 17.5 (09942) Interpretation and Abnormal 05-12-2018 [facility] review of (56583) laboratory results MCH Entitic mass 29.7 26 - 34 pg 05-12-2018 [facility] (RBC) (37242) MCHC mass conc 32.9 31 - 37 g/dL 05-12-2018 [facility] (RBC) (14287) MCV Entitic volume 90.2 80 - fL 05-12-2018 [facility] (RBC) 100 (72422) Nucleated RBC 0.00 OTH - 10*3/u 05-12-2018 [facility] ealth #/vol (Bld) OTH L (49541) Nucleated RBC/100 0.0 % 05-12-2018 [facility] WBC Ratio (Bld) (432 15) Platelet mean 10.6 9 - fL 05-12-2018 [facility] ealth volume Entitic 15.5 (4321 5) volume (Bld) Platelets #/vol 243 OTH - 10*3/u 05-12-2018 [facility] (Bld) OTH L (50251) RBC #/vol (Bld) 4.38 OTH - 10*6/u Low 05-12-2018 [facility] OTH L (73884) WBC #/vol (Bld) 16.17 OTH - 10*3/u High 05-12-2018 [facility] OTH L (72751) Anion gap molar 18 10 - 20 mmol/L 05-12-2018 [facility] conc (74195) Chloride molar 103 98 - mmol/L 05-12-2018 [facility] conc 108 (24242) Creatinine mass 0.85 0.5 - mg/dL 05-12-2018 [facility] conc 1.3 (22691) GFR/1.73 sq M The eGFR should be used [facility] predicted among for monitoring renal (71016) non-blacks MDRD function only and not vol rate/area for medication dosing. (S/P/Bld) GFR/1.73 sq 110 >=60 05-12-2018 [facility] lth M.predicted mL/min/ (56739) CKD-EPI vol 1.73 m2 rate/area (S/P/Bld) Glucose mass conc 95 65 - 99 mg/dL 05-12-2018 [facility] (49897) HCO3 molar conc 25 21 - 32 mmol/L 05-12-2018 [facility] (77810) Interpretation and Normal 05-12-2018 [facility] review of (42184) laboratory results Potassium molar 5.1 3.5 - mmol/L 05-12-2018 [facility] conc 5.1 (23830) Sodium molar conc 141 135 - mmol/L 05-12-2018 [facility] 145 (12317) Urea nitrogen mass 15 8 - 25 mg/dL 05-12-2018 [facility] conc (50348) Urea 17.6 OTH - mg/mg 05-12-2018 [facility] h nitrogen/Creatinin OTH ( 60011) e mass ratio This is an auto 05-12-2018 [facility] finalized result. Please (22841) refer to patient chart for further information. No panel information on 2018-04-24 Anion gap 3 molar 15 10 - 20 mmol/L Invalid 04-24-2018 [facility] conc Interpretation Code Calcium mass conc 9.4 8.4 - mg/dL Invalid 04-24-2018 [facility] 10.2 Interpretation Code Chloride molar conc 104 98 - 108 mmol/L Invalid 04-24-2018 [facility] Interpretation Code Creatinine mass 0.78 0.5 - mg/dL Invalid 04-24-2018 [facility] conc 1.3 Interpretation Code GFR/1.73 sq M The eGFR should Invalid 04-24-2018 [facility] predicted among be used for Interpretation non-blacks MDRD vol monitoring Code rate/area (S/P/Bld) renal function only and not for medication dosing. GFR/1.73 sq 114 >=60 Invalid 04-24-2018 [facility] M.predicted CKD-EPI mL/min/1 Interpretation vol rate/area .73 m2 Code (S/P/Bld) Glucose mass conc 86 65 - 99 mg/dL Invalid 04-24-2018 [facility] Interpretation Code HCO3 molar conc 23 21 - 32 mmol/L Invalid 04-24-2018 [facility] Interpretation Code Interpretation and Normal Invalid 04-24-2018 [facility] review of Interpretation laboratory results Code Potassium molar 4.0 3.5 - mmol/L Invalid 04-24-2018 [facility] conc 5.1 Interpretation Code Sodium molar conc 138 135 - mmol/L Invalid 04-24-2018 [facility] 145 Interpretation Code Urea nitrogen mass 13 8 - 25 mg/dL Invalid 04-24-2018 [facility] conc Interpretation Code Urea 16.7 OTH - mg/mg Invalid 04-24-2018 [facility] nitrogen/Creatinine OTH Interpretation mass ratio Code Hematocrit Auto 42.8 41 - 53 % Invalid 04-24-2018 [facility] Volume Fraction Interpretation (Bld) Code Hemoglobin mass 14.1 13.5 - g/dL Invalid 04-24-2018 [facility] conc (Bld) 17.5 Interpretation Code Interpretation and Normal Invalid 04-24-2018 [facility] review of Interpretation laboratory results Code ct maxillofacial without contrast 3d on 2018-02-23 CT MAXILLOFACIAL EXAMINATION: Normal 02-23-2018 [facility] WITHOUT CONTRAST 3D CT OF THE FACE WITHOUT CONTRAST 02/23/2018 [place] ([id number]) TECHNIQUE: CT of the face was performed [...] as on the previous exam. Workstation ID: [id number] Dictated by: MONTEZ NAJERA on TueFeb 23, [...] 02-23-2018 [facility] WITHOUT CONTRAST 02/23/2018 Code [facility] TECHNIQUE: CT of the face was [...] 02-23-2018 [facility] SYNAPSE mandibular angle fracture. Code [facility] Persistent fracture line with evidence of cortical bone formation along the fracture margins raises concern for nonunion. Chronic paranasal sinusitis as on the previous exam. Workstation ID: [id number] Interface, Rad In Ilana Invalid Interpret ation 02-23-2018 ILANA FELIPE Speechq - 02/23/2018 2:01 PM Code [facility] EDT EXAMINATION: CT OF THE FACE [...] as on the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 (Leukocytes) 3.04 K/mcL 4.50 - Low 12-25-2016 [facility] 11.00 creatinine, serum o n 2016-12-24 Creatinine 0.61 0.5 - mg/dL Invalid 12-24-2016 [facility] 1.3 Interpretation Code eGFR (non-black) 127 >=60 mL/min/{1 Invalid 12-24-2016 [facility] mL/min/1.73 m2 .73_m2} Interpretation Code eGFR (non-black) The eGFR Invalid 12-24-2016 [facility] should be used Interpretation for monitoring Code renal function only and not for medication dosing. Interpretation and Normal Invalid 12-24-2016 [facility] review of Interpretation laboratory results Code vancomycin level, trough on 2016-12-23 Interpretation and Normal Invalid 12-23-2016 [facility] review of laboratory Interpretation Code results Vancomycin 11.2 mcg/mL 5.0 - ug/mL Invalid 12-23-2016 [facility] 20.0 Interpretation Code type and screen on 2016-12-23 ABO+Rh group O Positive Invalid 12-23-2016 [facility] T RANSFUSION Interpretation Code SERVICES Blood group Negative Invalid 12-23-2016 [facility] TRA NSFUSION antibody Interpretation Code SERVICES presence Specimen Expires 12/26/2016 Invalid 12-23-2016 [facility] TRANSFUSION 23:59 EST Interpretation Code SERVICES sedimentation rate on 2016-12-23 Erythrocyte sedimentation rate 48 mm/hr 0 - 15 High 12-23-2016 [facility] prepare rbc: 2 units on 2016-12-23 Blood Type O Pos Invalid 12-23-2016 [facility] PEREZ SFUSION Interpretation Code SERVICES Blood Type Code 5100 1 Invalid 12-23-2016 [facility] TRANSFUSION Interpretation Code SERVICES Cross Match Compatible Invalid 12-23-2016 [facility] TR ANSFUSION Interpretation Code SERVICES Product Code [id number] Invalid 12-23-2016 [facility] TR ANSFUSION Interpretation Code SERVICES Product ID Red Blood Cells Invalid 12-23-2016 [facility] TRANSFUSION Interpretation Code SERVICES Status Info Released Invalid 12-23-2016 [facility] NSFUSION Interpretation Code SERVICES Unit Number [id number] Invalid 12-23-2016 [facility] TRANSFUSION Interpretation Code SERVICES Unit Number [id number] Invalid 12-23-2016 [facility] TRANSFUSION Interpretation Code SERVICES crp, inflammation o n 2016-12-23 C reactive protein (CRP) 16.6 0 - 10 mg/L High 12-23 [facility] chem 7 on 2016-11-25 1 Anion gap 14 10 - 20 mmol/L Invalid 12-23-2016 [facility] Interpretation Code Bicarbonate (HCO3) 27 21 - 32 mmol/L Invalid 12-23-2016 [facility] Interpretation Code BUN/Creatinine 13.3 10.0 - 1 Invalid 12-23-2016 [facility] Ratio 20.0 Interpretation Code Chloride 105 98 - mmol/L Invalid 12-23-2016 [facility] 108 Interpretation Code Creatinine 0.60 0.5 - mg/dL Invalid 12-23-2016 [facility] 1.3 Interpretation Code eGFR (non-black) 128 >=60 mL/min/{1. Invalid 12-23-2016 [facility] mL/min/1.73 m2 73_m2} Interpretation Code eGFR (non-black) The eGFR Invalid 12-23-2016 [facility] should be used Interpretation for monitoring Code renal function only and not for medication dosing. Glucose 128 65 - 99 mg/dL High 12-23-2016 [facility] Interpretation and Abnormal Invalid 12-23-2016 [facility] review of Interpretation laboratory results Code Potassium 3.7 3.5 - mmol/L Invalid 12-23-2016 [facility] 5.1 Interpretation Code Sodium 142 135 - mmol/L Invalid 12-23-2016 [facility] 145 Interpretation Code Urea nitrogen 8 8 - 25 mg/dL Invalid 12-23-2016 [facility] AB Interpretation Code cbc on 2016-12-23 Erythrocytes (RBC) 0.00 K/mcL 0.00 - 0.00 Invalid 12-24-19 17 [facility] Interpretation Code Erythrocytes (RBC) 3.01 M/mcL 4.50 - 5.90 Low 12-24-19 17 [facility] Hematocrit (HCT) 24.1 41 - 53 % Low 12-23-2016 [facility] Hemoglobin (HGB) 7.6 13.5 - 17.5 g/dL Low 12-23-2016 [facility] MCH 25.2 26 - 34 pg Low 12-23-2016 [facility] MCHC 31.5 31 - 37 g/dL Invalid 12-23-2016 [facility] Interpretation Code MCV 80.1 80 - 100 fL Invalid 12-23-2016 [facility] Interpretation Code Nucleated 0.0 % Invalid 12-23-2016 [facility] erythrocytes/100 Interpretation Code erythrocytes Platelet mean 10.3 9 - 15.5 fL Invalid 12-23-2016 [facility] AB volume (PMV) Interpretation Code Platelets 278 K/mcL 150 - 400 Invalid 12-23-2016 [facility] Interpretation Code RDW-CA 16.0 11.6 - 14.8 % High 12-23-2016 [facility] WBC (Leukocytes) 3.72 K/mcL 4.50 - Low 12-23-2016 [facility] 11.00 xr chest 1 view on 2016-12-22 PICC line in adequate Invalid Interpreta tion 12-22-2016 [facility]I SYNAPSE position with the tip in [facility] the SVC/right atrial junction. [facility] Workstation ID: [id number] Interface, Rad In [employer] Invalid Interpret ation 12-22-2016 [facility]I SYNAPSE Speechq - 12/22/2016 1:28 [facility] PM EDT EXAMINATION: SINGLE VIEW OF [...] the tip in the SVC/right atrial junction. [facility] Workstation ID: [id number] EXAMINATION: SINGLE VIEW Invalid Interpr etation 12-22-2016 [facility]I SYNAPSE OF THE CHEST 12/22/2016 [facility] 8:56 AM COMPARISON: 12/02/2016. HISTORY: ORDERING [...] Polymicrobic mixture of Invalid Interpre tation 12-22-2016 [place] aerobic and anaerobic Code [facility] organisms with no [facility] organism predominant. No Staphylococcus aureus. No Beta Streptococcus Group A. No Beta Streptococcus Group B. No Pseudomonas aeruginosa. No Clostridium perfringens. No Clostridium septicum. No Bacteroides fragilis. Contact Microbiology within 48 hours if further workup is clinically indicated. wound aerobic culture on 2016-12-22 Culture Polymicrobic Invalid 12-22-2016 [facility] mixture of aerobic Interpretation Code TAOIST organisms with no [facility] organism predominant. No Staphylococcus aureus. No Beta Streptococcus Group A. No Beta Streptococcus Group B No Pseudomonas aeruginosa. Contact Microbiology within 48 hours if further workup is clinically indicated. INR in blood by Moderate WBC Invalid 12-22-2016 [place] coagulation Interpretation Code [facility] L AB INR in blood by Few Gram Positive {INR} Invalid 2016 [place] coagulation Cocci Interpretation Code [facility] L AB INR in blood by Moderate RBC Invalid 12-22-2016 [place] coagulation Interpretation Code [facility] L AB Gram Stain Invalid 12-22-2016 [facility] E performed at [place] Interpretation [facility] Laboratory chem 7 on 2016-11-25 0 Anion gap 15 10 - 20 mmol/L Invalid 12-22-2016 [facility] Interpretation Code Bicarbonate (HCO3) 24 21 - 32 mmol/L Invalid 12-22-2016 [facility] Interpretation Code BUN/Creatinine 22.6 10.0 - 1 High 12-22-2016 [facility] Ratio 20.0 Chloride 110 98 - mmol/L High 12-22-2016 [facility] 108 Creatinine 0.53 0.5 - mg/dL Invalid 12-22-2016 [facility] 1.3 Interpretation Code eGFR (non-black) 134 >=60 mL/min/{1. Invalid 12-22-2016 [facility] mL/min/1.73 m2 73_m2} Interpretation Code eGFR (non-black) The eGFR Invalid 12-22-2016 [facility] should be used Interpretation for monitoring Code renal function only and not for medication dosing. Glucose 97 65 - 99 mg/dL Invalid 12-22-2016 [facility] Interpretation Code Interpretation and Abnormal Invalid 12-22-2016 [facility] review of Interpretation laboratory results Code Potassium 3.8 3.5 - mmol/L Invalid 12-22-2016 [facility] 5.1 Interpretation Code Sodium 145 135 - mmol/L Invalid 12-22-2016 [facility] 145 Interpretation Code Urea nitrogen 12 8 - 25 mg/dL Invalid 12-22-2016 [facility] Interpretation Code vancomycin level, random on 2016-12-21 INR in blood by 6.0 mcg/mL Invalid Interpretation 12-21-2016 [facility] coagulation Code No established Invalid Interpretation [facility] reference range. Code protein,total on 09-12-28 Protein 6.8 6 - 8 g/dL Invalid Interpretation Code [facility] prealbumin on 12-21 Prealbumin 26.0 20 - 40 mg/dL Invalid Interpretation Code 0 12-21-2016 [facility] cbc on 2016-12-21 Erythrocytes (RBC) 3.46 M/mcL 4.50 - Low 12-21-2016 [facility] 5.90 Erythrocytes (RBC) 0.00 K/mcL 0.00 - Invalid 12-21-2016 [facility] 0.00 Interpretation Code Hematocrit (HCT) 27.2 41 - 53 % Low 12-21-2016 [facility] Hemoglobin (HGB) 8.7 13.5 - g/dL Low 12-21-2016 [facility] 17.5 Interpretation and Abnormal Invalid 12-21-2016 [facility] review of laboratory Interpretation Code results MCH 25.1 26 - 34 pg Low 12-21-2016 [facility] MCHC 32.0 31 - 37 g/dL Invalid 12-21-2016 [facility] Interpretation Code MCV 78.6 80 - 100 fL Low 12-21-2016 [facility] Nucleated 0.0 % Invalid 12-21-2016 [facility] erythrocytes/100 Interpretation Code erythrocytes Platelet mean volume 10.5 9 - 15.5 fL Invalid 7 [facility] (PMV) Interpretation Code Platelets 388 K/mcL 150 - 400 Invalid 12-21-2016 [facility] Interpretation Code RDW-CA 16.2 11.6 - % High 12-21-2016 [facility] 14.8 WBC (Leukocytes) 11.69 K/mcL 4.50 - High 12-21-2016 [facility] 11.00 albumin on Albumin 3.9 3.2 - 5.2 g/dL Invalid Interpretation 017 [facility] Code Interpretation and Normal Invalid Interpretatio n 12-21-2016 [facility] review of laboratory Code results vancomycin level, trough on 2016-12-08 Interpretation and Normal Invalid 12-08-2016 [facility] review of laboratory Interpretation Code results Vancomycin 9.4 mcg/mL 5.0 - ug/mL Invalid 12-08-2016 [facility] 20.0 Interpretation Code hemoglobin and hematocrit on 2016-12-08 Hematocrit (HCT) 22.7 41 - 53 % Low 12-08-2016 [facility] Hemoglobin (HGB) 7.2 13.5 - g/dL Low 12-08-2016 [facility] 17.5 Interpretation and Abnormal Invalid 12-08-2016 [facility] review of laboratory Interpretation Code results chem 7 on 2016-11-23 6 Anion gap 14 10 - 20 mmol/L Invalid 12-08-2016 [facility] Interpretation Code Bicarbonate (HCO3) 28 21 - 32 mmol/L Invalid 12-08-2016 [facility] Interpretation Code BUN/Creatinine 17.0 10.0 - 1 Invalid 12-08-2016 [facility] Ratio 20.0 Interpretation Code Chloride 104 98 - mmol/L Invalid 12-08-2016 [facility] 108 Interpretation Code Creatinine 0.53 0.5 - mg/dL Invalid 12-08-2016 [facility] 1.3 Interpretation Code eGFR (non-black) 134 >=60 mL/min/{1. Invalid 12-08-2016 [facility] mL/min/1.73 m2 73_m2} Interpretation Code eGFR (non-black) The eGFR Invalid 12-08-2016 [facility] should be used Interpretation for monitoring Code renal function only and not for medication dosing. Glucose 87 65 - 99 mg/dL Invalid 12-08-2016 [facility] Interpretation Code Interpretation and Normal Invalid 12-08-2016 [facility] review of Interpretation laboratory results Code Potassium 4.3 3.5 - mmol/L Invalid 12-08-2016 [facility] 5.1 Interpretation Code Sodium 142 135 - mmol/L Invalid 12-08-2016 [facility] 145 Interpretation Code Urea nitrogen 9 8 - 25 mg/dL Invalid 12-08-2016 [facility] Interpretation Code cbc on 2016-12-08 Erythrocytes (RBC) 0.00 K/mcL 0.00 - Invalid 12-08-2016 [facility] 0.00 Interpretation Code Erythrocytes (RBC) 2.44 M/mcL 4.50 - Low 12-08-2016 [facility] 5.90 Hematocrit (HCT) 20.1 41 - 53 % Low 12-08-2016 [facility] Hemoglobin (HGB) 6.4 13.5 - g/dL Critically low 12-09-19 17 [facility] 17.5 Interpretation and Abnormal Invalid 12-08-2016 [facility] review of laboratory Interpretation Code results MCH 26.2 26 - 34 pg Invalid 12-08-2016 [facility] Interpretation Code MCHC 31.8 31 - 37 g/dL Invalid 12-08-2016 [facility] Interpretation Code MCV 82.4 80 - 100 fL Invalid 12-08-2016 [facility] Interpretation Code Nucleated 0.0 % Invalid 12-08-2016 [facility] erythrocytes/100 Interpretation Code erythrocytes Platelet mean volume 10.1 9 - 15.5 fL Invalid 7 [facility] (PMV) Interpretation Code Platelets 221 K/mcL 150 - 400 Invalid 12-08-2016 [facility] Interpretation Code RDW-CA 16.2 11.6 - % High 12-08-2016 [facility] 14.8 WBC (Leukocytes) 5.71 K/mcL 4.50 - Invalid 12-08-2016 [facility] 11.00 Interpretation Code creatinine, serum o n 2016-12-07 Creatinine 0.59 0.5 - mg/dL Invalid 12-07-2016 [facility] 1.3 Interpretation Code eGFR (non-black) 128 >=60 mL/min/{1 Invalid 12-07-2016 [facility] mL/min/1.73 m2 .73_m2} Interpretation Code eGFR (non-black) The eGFR Invalid 12-07-2016 [facility] should be used Interpretation for monitoring Code renal function only and not for medication dosing. Interpretation and Normal Invalid 12-07-2016 [facility] review of Interpretation laboratory results Code vancomycin level, random on 2016-12-06 INR in blood by 6.1 mcg/mL Invalid Interpretation 12-06-2016 [facility] coagulation Code No established Invalid Interpretation [facility] reference range. Code phosphorus on 12-06 Interpretation and Normal Invalid Interpretatio n 12-06-2016 [facility] review of laboratory Code results Phosphate 3.8 2.7 - mg/dL Invalid Interpretation 017 [facility] 4.5 Code magnesium level on 2016-12-06 Magnesium 1.7 1.6 - 2.4 mg/dL Invalid Interpretation Code [facility] cbc auto differential on 2016-12-06 Basophils 0.03 K/mcL 0.00 - Invalid 12-06-2016 [facility] 0.30 Interpretation Code Basophils/100 0.4 % Invalid 12-06-2016 [facility] leukocytes Interpretation Code Eosinophils 0.18 K/mcL 0.00 - Invalid 12-06-2016 [facility] B 0.50 Interpretation Code Eosinophils/100 2.6 % Invalid 12-06-2016 [facility] leukocytes Interpretation Code Erythrocytes (RBC) 0.00 K/mcL 0.00 - Invalid 12-06-2016 [facility] 0.00 Interpretation Code Erythrocytes (RBC) 2.91 M/mcL 4.50 - Low 12-06-2016 [facility] 5.90 Hematocrit (HCT) 24.2 41 - 53 % Low 12-06-2016 [facility] Hemoglobin (HGB) 7.6 13.5 - g/dL Low 12-06-2016 [facility] 17.5 IG Absolute 0.02 K/mcL 0.00 - Invalid 12-06-2016 [facility] B 0.30 Interpretation Code IG Percent 0.30 % Invalid 12-06-2016 [facility] Interpretation Code Interpretation and Abnormal Invalid 12-06-2016 [facility] review of laboratory Interpretation Code results Lymphocytes 1.77 K/mcL 0.90 - Invalid 12-06-2016 [facility] 4.00 Interpretation Code Lymphocytes/100 25.3 % Invalid 12-06-2016 [facility] leukocytes Interpretation Code MCH 26.1 26 - 34 pg Invalid 12-06-2016 [facility] Interpretation Code MCHC 31.4 31 - 37 g/dL Invalid 12-06-2016 [facility] Interpretation Code MCV 83.2 80 - 100 fL Invalid 12-06-2016 [facility] Interpretation Code Monocytes 0.78 K/mcL 0.30 - Invalid 12-06-2016 [facility] 0.90 Interpretation Code Monocytes/100 11.1 % Invalid 12-06-2016 [facility] leukocytes Interpretation Code Neutrophils 4.22 K/mcL 1.70 - Invalid 12-06-2016 [facility] 7.00 Interpretation Code Neutrophils/100 60.3 % Invalid 12-06-2016 [facility] leukocytes Interpretation Code Nucleated 0.0 % Invalid 12-06-2016 [facility] erythrocytes/100 Interpretation Code erythrocytes Platelet mean volume 10.5 9 - 15.5 fL Invalid 7 [facility] (PMV) Interpretation Code Platelets 249 K/mcL 150 - 400 Invalid 12-06-2016 [facility] Interpretation Code RDW-CA 15.9 11.6 - % High 12-06-2016 [facility] 14.8 WBC (Leukocytes) 7.00 K/mcL 4.50 - Invalid 12-06-2016 [facility] 11.00 Interpretation Code cbc and differential on 2016-12-06 Creatinine The following orders were Invalid [facility] for panel order CBC Interpretati on (42554) and Differential. Procedure Code Abnormality Status --------- ------ CBC Auto Differential[[id number]] Abnormal Final result CBC and Diff Morphology[[id number]] Final result Please view results for these tests on the individual orders. cbc and diff morphology on 2016-12-06 Anisocytosis presence 1+ Invalid Interpreta tion Code 12-06-2016 [facility] Platelets presence Normal Normal Invalid Interpretatio n Code 12-06-2016 [facility] basic metabolic panel on 2016-12-06 Anion gap 16 10 - 20 mmol/L Invalid 12-06-2016 [facility] Interpretation Code Bicarbonate 29 21 - 32 mmol/L Invalid 12-06-2016 [facility] (HCO3) Interpretation Code BUN/Creatinine 18.6 10.0 - 1 Invalid 12-06-2016 [facility] Ratio 20.0 Interpretation Code Calcium 8.9 8.4 - mg/dL Invalid 12-06-2016 [facility] 10.2 Interpretation Code Chloride 99 98 - 108 mmol/L Invalid 12-06-2016 [facility] Interpretation Code Creatinine 0.59 0.5 - mg/dL Invalid 12-06-2016 [facility] 1.3 Interpretation Code eGFR (non-black) The eGFR should Invalid 017 [facility] be used for Interpretation monitoring Code renal function only and not for medication dosing. eGFR (non-black) 128 mL/min/1.73 >=60 mL/min/{1. Invalid 2016 [facility] m2 73_m2} Interpretation Code Glucose 98 65 - 99 mg/dL Invalid 12-06-2016 [facility] Interpretation Code Potassium 4.4 3.5 - mmol/L Invalid 12-06-2016 [facility] 5.1 Interpretation Code Sodium 140 135 - mmol/L Invalid 12-06-2016 [facility] 145 Interpretation Code Urea nitrogen 11 8 - 25 mg/dL Invalid 12-06-2016 [facility] AB Interpretation Code wound aerobic culture on 2016-12-03 Culture Few Growth (4-10 Abnormal 12-03-2016 [facility] colonies per plate) [facility] Fadia albicans [facility] Culture Few Growth (4-10 Abnormal 12-03-2016 [facility] colonies per plate) [facility] Coagulase Negative [facility] Staphylococcus INR in blood by Many WBC Invalid 12-03-2016 [facility] coagulation Interpretation Code [facility] AB INR in blood by Many RBC Invalid 12-03-2016 [facility] coagulation Interpretation Code [facility] AB INR in blood by No Epithelial Cells Invalid 11-23 [facility] coagulation Seen Interpretation Code [facility] AB INR in blood by No Organisms Seen Invalid 2016 [facility] coagulation Interpretation Code [facility] AB Interpretation and Abnormal Invalid 12-03-2016 [facility] review of Interpretation Code [facility] laboratory results [facility] Gram Stain Invalid 12-03-2016 [facility] performed at [place] Interpretation [facility] Laboratory xr chest 1 view on 2016-12-02 PICC line is in a Invalid Interpretation 12-02-2016 [place] satisfactory position. Code [facility] There appears to be a very minimal right apical pneumothorax. Workstation ID: [id number] Interface, Rad In Fuji Invalid Interpret ation 12-02-2016 [facility] [employer] Speechq - 12/02/2016 1:28 [facility] PM EDT EXAMINATION: SINGLE VIEW OF [...] very minimal right apical pneumothorax. Workstation ID: [id number] EXAMINATION: SINGLE VIEW Invalid Interpr etation 12-02-2016 [facility] [employer] OF THE CHEST 12/02/2016 [facility] 12:00 pm COMPARISON: 10/15/2016 HISTORY: ORDERING [...] 2016-12-02 ABO+Rh group O Positive Invalid 12-02-2016 [facility] RANSFUSION Interpretation Code SERVICES Blood group Negative Invalid 12-02-2016 [facility] TRA NSFUSION antibody Interpretation Code SERVICES presence Specimen Expires 12/05/2016 Invalid 12-02-2016 [facility] TRANSFUSION 23:59 EST Interpretation Code SERVICES pt/inr on 2016-11-23 0 Coagulation factor 1.0 0.8 - 1 Invalid 12-02-2016 [facility] induced.INR assay 1.1 Interpretation in platelet poor Code plasma Coagulation tissue 13.2 seconds 11.8 - Invalid 12-03-19 17 [facility] factor induced in 14.3 Interpretation platelet poor Code plasma INR in blood by During the induction Invalid [facility] coagulation phase of oral Interpretation anticoagulation, the Code INR may not reflect the anticoagulation status of the patient. Therapeutic ranges for INR's are: Most clinical situations: INR 2.0-3.0 Mechanical Prosthetic Valve: INR 2.5-3.5 Critical: INR >5.0 Interpretation and Normal Invalid 12-02-2016 [facility] review of Interpretation laboratory results Code comprehensive metabolic panel on 2016-12-02 Alanine 12 0 - 40 U/L Invalid 12-02-2016 [facility] aminotransferase Interpretation (ALT) Code Albumin 4.0 3.2 - g/dL Invalid 12-02-2016 [facility] 5.2 Interpretation Code Alkaline phosphatase 95 40 - U/L Invalid 7 [facility] (ALP) 140 Interpretation Code Anion gap 16 10 - 20 mmol/L Invalid 12-02-2016 [facility] Interpretation Code Aspartate 12 0 - 45 U/L Invalid 12-02-2016 [facility] aminotransferase Interpretation (AST) Code Bicarbonate (HCO3) 24 21 - 32 mmol/L Invalid 12-02-2016 [facility] Interpretation Code Bilirubin (total) 0.2 0 - 1.3 mg/dL Invalid 12-02-2016 [facility] Interpretation Code BUN/Creatinine Ratio 14.9 10.0 - 1 Invalid 7 [facility] 20.0 Interpretation Code Calcium 9.2 8.4 - mg/dL Invalid 12-02-2016 [facility] 10.2 Interpretation Code Chloride 103 98 - mmol/L Invalid 12-02-2016 [facility] 108 Interpretation Code Creatinine 0.67 0.5 - mg/dL Invalid 12-02-2016 [facility] 1.3 Interpretation Code eGFR (non-black) 122 >=60 mL/min/ Invalid 12-02-2016 [facility] mL/min/1.73 m2 {1.73_m Interpretation 2} Code eGFR (non-black) The eGFR Invalid 12-02-2016 [facility] should be used Interpretation for monitoring Code renal function only and not for medication dosing. Glucose 84 65 - 99 mg/dL Invalid 12-02-2016 [facility] Interpretation Code Potassium 4.0 3.5 - mmol/L Invalid 12-02-2016 [facility] 5.1 Interpretation Code Protein 7.1 6 - 8 g/dL Invalid 12-02-2016 [facility] Interpretation Code Sodium 139 135 - mmol/L Invalid 12-02-2016 [facility] 145 Interpretation Code Urea nitrogen 10 8 - 25 mg/dL Invalid 12-02-2016 [facility] AB Interpretation Code cbc on 2016-12-02 Erythrocytes (RBC) 3.73 M/mcL 4.50 - Low 12-02-2016 [facility] 5.90 Erythrocytes (RBC) 0.00 K/mcL 0.00 - Invalid 12-02-2016 [facility] 0.00 Interpretation Code Hematocrit (HCT) 30.5 41 - 53 % Low 12-02-2016 [facility] Hemoglobin (HGB) 9.6 13.5 - g/dL Low 12-02-2016 [facility] 17.5 Interpretation and Abnormal Invalid 12-02-2016 [facility] review of laboratory Interpretation Code results MCH 25.7 26 - 34 pg Low 12-02-2016 [facility] MCHC 31.5 31 - 37 g/dL Invalid 12-02-2016 [facility] Interpretation Code MCV 81.8 80 - 100 fL Invalid 12-02-2016 [facility] Interpretation Code Nucleated 0.0 % Invalid 12-02-2016 [facility] erythrocytes/100 Interpretation Code erythrocytes Platelet mean volume 9.8 9 - 15.5 fL Invalid 7 [facility] (PMV) Interpretation Code Platelets 307 K/mcL 150 - 400 Invalid 12-02-2016 [facility] Interpretation Code RDW-CA 15.3 11.6 - % High 12-02-2016 [facility] 14.8 WBC (Leukocytes) 5.36 K/mcL 4.50 - Invalid 12-02-2016 [facility] 11.00 Interpretation Code creatinine, serum o n 2016-11-25 Creatinine 0.58 0.5 - mg/dL Invalid 11-25-2016 [facility] 1.3 Interpretation Code eGFR (non-black) 129 >=60 mL/min/{1 Invalid 11-25-2016 [facility] mL/min/1.73 m2 .73_m2} Interpretation Code eGFR (non-black) The eGFR Invalid 11-25-2016 [facility] should be used Interpretation for monitoring Code renal function only and not for medication dosing. Interpretation and Normal Invalid 11-25-2016 [facility] review of Interpretation laboratory results Code creatinine, serum o n 2016-11-24 Creatinine 0.68 0.5 - mg/dL Invalid 11-24-2016 [facility] 1.3 Interpretation Code eGFR (non-black) 121 >=60 mL/min/{1 Invalid 11-24-2016 [facility] mL/min/1.73 m2 .73_m2} Interpretation Code eGFR (non-black) The eGFR Invalid 11-24-2016 [facility] should be used Interpretation for monitoring Code renal function only and not for medication dosing. Interpretation and Normal Invalid 11-24-2016 [facility] review of Interpretation laboratory results Code vitamin d, total, 25-oh on 2016-11-23 Interpretation and Normal Invalid 11-23-2016 [place] review of Interpretation [facility] laboratory results Code [facility] Vit D, 25-Hydroxy 39 30 - ng/m Invalid 11-23-2016 [facility] 100 L Interpretation [facility] Code [facility]OS[facility] L AB specimen Invalid 11-23-2016 [place] already Interpretation [facility] obtained - Code [facility] thanks creatinine, serum o n 2016-11-23 Creatinine 0.73 0.5 - mg/dL Invalid 11-23-2016 [facility] 1.3 Interpretation Code eGFR (non-black) The [...] Growth Beta Abnormal 11-22-2016 [facility] Hemolytic [facility] Streptococcus [facility] LAB Group F INR in blood by Many WBC Invalid 11-22-2016 [facility] coagulation Interpretation MET [facility] [place] [place] L AB INR in blood by Few RBC Invalid 11-22-2016 [facility] coagulation Interpretation MET [facility] [place] [place] L AB INR in blood by Rare Gram Positive {INR Invalid 11-22 [place] coagulation Cocci } Interpretation MET [facility] [place] [place] L AB Interpretation and Abnormal Invalid 11-22-2016 [place] review of Interpretation [facility] laboratory results Code [facility] Gram Stain Invalid 11-22-2016 [facility] E performed at [facility] Code [facility] Laboratory Vital Signs Vital Sign Description Value / Unit Date Location The following section is limited to 5 en tries per type and includes entries from the following time range: [id number] - 5. BMI (Body Mass Index) 33.37 kg/m2 11-27-2018 [facility] ([id number]) BMI (Body Mass Index) 33.37 kg/m2 10-23-2018 [facility] (34439) BMI (Body Mass Index) 33.37 kg/m2 09-06-2018 [facility] ([id number]) BMI (Body Mass Index) 33.37 kg/m2 06-07-2018 [facility] ([id number]) BMI (Body Mass Index) 33.5 kg/m2 05-25-2018 [facility] (76110) Body Temperature 98.49 [degF] 06-05-2018 [facility] (432 15) Body Temperature 98.6 [degF] 05-27-2018 [facility] (432 15) Body Temperature 98.01 [degF] 05-13-2018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 information [facility] (4321 5) Culture Wound culture Wound culture Routine 02-03-2018 [facility] ([id number]) Chronic osteomyelitis of facial bones (HCC) 1 Occurrences starting 02/03/2017 until 02/03/2018 Wound Fungus Culture no information [facility] (25917) XR Knee Left 2 Views XR Knee Left 2 Views 03-31-2017 [facility] ([id number]) (Standard) (Standard) Routine Type I or II open comminuted fracture of left patella with routine healing Once for 1 Occurrences starting 03/31/2017 until 03/31/2017 XR Knee Left 2 Views XR Knee Left 2 Views [facility] ([id number]) (Standard) (Standard) Routine Type I or II open comminuted fracture of left patella with routine healing 03/31/2017 1:09 PM EST Immunizations Vaccine Notes Status Date Location TDAP tetanus toxoid, reduced (completed) 08-27-2016 - [facility] ([id number]) diphtheria toxoid, and 08-27-2016 acellular pertussis vaccine, adsorbed Payers Payer Name Policy Number Location [facility] xxxxxxxxxxx [facility] ( [id number]) [employer] MED[employer] [id number] [facility] ([id number]) [employer] [employer], MEDICAID, [id number] [facility] ([id number]) [employer], MEDICAID, [employer], MEDICAID, [employer]ICA[employer] [place] [employer] xxxxxxxxxxxx [facility] (4321 5) [id number] [facility] ([id number]) [id number] [facility] ([id number]) [id number] [facility] ([id number]) [id number] [facility] (68403) [id number] [facility] ([id number]) [id number] [facility] ([id number]) [id number] [facility] ([id number]) [id number] [facility] ([id number]) [id number] [facility] ([id number]) [id number] [facility] ([id number]) [id number] [facility] ([id number]) [id number] [facility] ([id number]) [id number] [facility] (51794) [id number] [facility] ([id number]) [id number] [facility] ([id number]) [id number] [facility] ([id number]) The following information is from the original human readable contentNo Payer Records Found Social History Type Social History Date Location Description Tobacco smoking status Former smoker 12-21-2016 - [facility] ([id number]) IAIS 03-14-2017 History of tobacco use Current smoker 08-25-2016 [facility] ([id number]) Sex Assigned At Not on file [facility] ([id number]) Tobacco Comment 1 pack per week for 20 10-01-2016 - [facility] (49589) years 10-01-2016 Tobacco smoking status Current every day smoker 06-05-2018 - [facility] (64713) NHIS 09-06-2018 Alcohol intake Current non-drinker of 09-06-2018 [facility] h (75450) alcohol (finding) The following information is from [...] 12-24-2016 Radiopaque Simplex P Single Dose - [id number] Screw 2.4 X 22mm Moraima 017 Ang Lock Strdrv - [id number] Tube Sz8 Trach 08-26-2016 Cuffed - [id number] Tube 22fr Feeding 08-26-2016 Gastrostomy Junior - [id number] Screw 2.4 X 32mm Va 08-28-19 17 Lock Self-Tap Strdrv Rec - [id number] Screw 2.4 X 44mm Va 08-28-19 17 Lock Self-Tap Strdrv Rec - [id number] Screw 2.4 X 36mm 08-27-2016 Cortex Self-Tap T8 Strdrv Rec - [id number] Screw 2.4 X 38mm 08-27-2016 Cortex Self-Tap T8 Strdrv Rec - [id number] Wire K .045 X 5.5in 08-28-19 17 W/Wire Guide - [id number] Plate 2.4mm 2.7mm 08-27-2016 Va-Lock Mesh 5 X 12hls - [id number] Wire 15 X 150mm 08-27-2016 Compression Thrd - [id number] 1.6mm Compression 08-27-2016 Wires 20mm Thread Length, 1500mm Total Length Screw 2.4 X 18mm Moraima 017 Ang Lock Strdrv - [id number] Screw 2.4 X 20mm Moraima 017 Ang Lock Strdrv - [id number] Screw 2.4 X 22mm Moraima 017 Ang Lock Strdrv - [id number] Hemostat 8 X 12.5cm 11-04-19 17 X 10mm Surgifoam Gelatin Sponge - [id number] Screw 2.5 X 4mm Ti 7 Schanz 14mm Thrd Body - [id number] Hemostat 2 X 14in 12-03-2016 Surgicel - [id number] Mandible Bone Infuse Bone 11-03-2016 Graft Sm - [id number] Bone Infuse Bone 05-25-2017 Graft Xsm - [id number] Cement Bone 12-24-2016 Radiopaque Simplex P Single Dose - [id number] Tube Sz8 Trach 08-26-2016 Cuffed - [id number] Tube 22fr Feeding 08-26-2016 Gastrostomy Junior - [id number] Screw 2.4 X 32mm Va 08-28-19 17 Lock Self-Tap Strdrv Rec - [id number] Screw 2.4 X 44mm Va 08-28-19 17 Lock Self-Tap Strdrv Rec - [id number] Screw 2.4 X 36mm 08-27-2016 Cortex Self-Tap T8 Strdrv Rec - [id number] Screw 2.4 X 38mm 08-27-2016 Cortex Self-Tap T8 Strdrv Rec - [id number] Wire K .045 X 5.5in 08-28-19 17 W/Wire Guide - [id number] Plate 2.4mm 2.7mm 08-27-2016 Va-Lock Mesh 5 X 12hls - [id number] Wire 15 X 150mm 08-27-2016 Compression Thrd - [id number] 1.6mm Compression 08-27-2016 Wires 20mm Thread Length, 1500mm Total Length Screw 2.4 X 18mm Moraima 017 Ang Lock Strdrv - [id number] Screw 2.4 X 20mm Moraima 017 Ang Lock Strdrv - [id number] Screw 2.4 X 22mm Moraima 017 Ang Lock Strdrv - [id number] Hemostat 8 X 12.5cm 11-04-19 17 X 10mm Surgifoam Gelatin Sponge - [id number] Screw 2.5 X 4mm Ti 7 Schanz 14mm Thrd Body - [id number] Hemostat 2 X 14in 12-03-2016 Surgicel - [id number] Hemostat 8 X 6.25cm 05-25-19 18 X 10mm Surgifoam Gelatin Sponge - [id number] Screw 2 X 10mm Cross 018 Pin Locking - [id number] Screw 2 X 14mm Cross 018 Pin Locking - [id number] Plate 11hl Str Recon 018 - [id number] Bone Infuse Bone 11-03-2016 Graft Sm - [id number] Bone Infuse Bone 05-25-2017 Graft Xsm - [id number] Cement Bone 12-24-2016 Radiopaque Simplex P Single Dose - [id number] Tube Sz8 Trach 08-26-2016 Cuffed - [id number] Tube 22fr Feeding 08-26-2016 Gastrostomy Junior - [id number] Screw 2.4 X 32mm Va 08-28-19 17 Lock Self-Tap Strdrv Rec - [id number] Screw 2.4 X 44mm Va 08-28-19 17 Lock Self-Tap Strdrv Rec - [id number] Screw 2.4 X 36mm 08-27-2016 Cortex Self-Tap T8 Strdrv Rec - [id number] Screw 2.4 X 38mm 08-27-2016 Cortex Self-Tap T8 Strdrv Rec - [id number] Wire K .045 X 5.5in 08-28-19 17 W/Wire Guide - [id number] Plate 2.4mm 2.7mm 08-27-2016 Va-Lock Mesh 5 X 12hls - [id number] Wire 15 X 150mm 08-27-2016 Compression Thrd - [id number] 1.6mm Compression 08-27-2016 Wires 20mm Thread Length, 1500mm Total Length Screw 2.4 X 18mm Moraima 017 Ang Lock Strdrv - [id number] Screw 2.4 X 20mm Moraima 017 Ang Lock Strdrv - [id number] Screw 2.4 X 22mm Moraima 017 Ang Lock Strdrv - [id number] Hemostat 8 X 12.5cm 11-04-19 17 X 10mm Surgifoam Gelatin Sponge - [id number] Screw 2.5 X 4mm Ti 7 Schanz 14mm Thrd Body - [id number] Hemostat 2 X 14in 12-03-2016 Surgicel - [id number] Hemostat 8 X 6.25cm 05-25-19 18 X 10mm Surgifoam Gelatin Sponge - [id number] Screw 2 X 10mm Cross 018 Pin Locking - [id number] Screw 2 X 14mm Cross 018 Pin Locking - [id number] Plate 11hl Str Recon 018 - [id number] Bone Infuse Bone 11-03-2016 Graft Sm - [id number] Bone Infuse Bone 05-25-2017 Graft Xsm - [id number] Cement Bone 12-24-2016 Radiopaque Simplex P Single Dose - [id number] Tube Sz8 Trach 08-26-2016 Cuffed - [id number] Tube 22fr Feeding 08-26-2016 Gastrostomy Junior - [id number] Screw 2.4 X 32mm Va 08-28-19 17 Lock Self-Tap Strdrv Rec - [id number] Screw 2.4 X 44mm Va 08-28-19 17 Lock Self-Tap Strdrv Rec - [id number] Screw 2.4 X 36mm 08-27-2016 Cortex Self-Tap T8 Strdrv Rec - [id number] Screw 2.4 X 38mm 08-27-2016 Cortex Self-Tap T8 Strdrv Rec - [id number] Wire K .045 X 5.5in 08-28-19 17 W/Wire Guide - [id number] Plate 2.4mm 2.7mm 08-27-2016 Va-Lock Mesh 5 X 12hls - [id number] Wire 15 X 150mm 08-27-2016 Compression Thrd - [id number] 1.6mm Compression 08-27-2016 Wires 20mm Thread Length, 1500mm Total Length Screw 2.4 X 18mm Moraima 017 Ang Lock Strdrv - [id number] Screw 2.4 X 20mm Moraima 017 Ang Lock Strdrv - [id number] Screw 2.4 X 22mm Moraima 017 Ang Lock Strdrv - [id number] Hemostat 8 X 12.5cm 11-04-19 17 X 10mm Surgifoam Gelatin Sponge - [id number] Screw 2.5 X 4mm Ti 7 Schanz 14mm Thrd Body - [id number] Hemostat 2 X 14in 12-03-2016 Surgicel - [id number] Hemostat 8 X 6.25cm 05-25-19 18 X 10mm Surgifoam Gelatin Sponge - [id number] Screw 2 X 10mm Cross 018 Pin Locking - [id number] Screw 2 X 14mm Cross 018 Pin Locking - [id number] Plate 11hl Str Recon 018 - [id number] Bone Infuse Bone 11-03-2016 Graft Sm - [id number] Bone Infuse Bone 05-25-2017 Graft Xsm - [id number] Cement Bone 12-24-2016 Radiopaque Simplex P Single Dose - [id number] Tube Sz8 Trach 08-26-2016 Cuffed - [id number] Tube 22fr Feeding 08-26-2016 Gastrostomy Junior - [id number] Screw 2.4 X 32mm Va 08-28-19 17 Lock Self-Tap Strdrv Rec - [id number] Screw 2.4 X 44mm Va 08-28-19 17 Lock Self-Tap Strdrv Rec - [id number] Screw 2.4 X 36mm 08-27-2016 Cortex Self-Tap T8 Strdrv Rec - [id number] Screw 2.4 X 38mm 08-27-2016 Cortex Self-Tap T8 Strdrv Rec - [id number] Wire K .045 X 5.5in 08-28-19 17 W/Wire Guide - [id number] Plate 2.4mm 2.7mm 08-27-2016 Va-Lock Mesh 5 X 12hls - [id number] Wire 15 X 150mm 08-27-2016 Compression Thrd - [id number] 1.6mm Compression 08-27-2016 Wires 20mm Thread Length, 1500mm Total Length Screw 2.4 X 18mm Moraima 017 Ang Lock Strdrv - [id number] Screw 2.4 X 20mm Moraima 017 Ang Lock Strdrv - [id number] Screw 2.4 X 22mm Moraima 017 Ang Lock Strdrv - [id number] Hemostat 8 X 12.5cm 11-04-19 17 X 10mm Surgifoam Gelatin Sponge - [id number] Screw 2.5 X 4mm Ti 7 Schanz 14mm Thrd Body - [id number] Hemostat 2 X 14in 12-03-2016 Surgicel - [id number] Hemostat 8 X 6.25cm 05-25-19 18 X 10mm Surgifoam Gelatin Sponge - [id number] Screw 2 X 10mm Cross 018 Pin Locking - [id number] Screw 2 X 14mm Cross 018 Pin Locking - [id number] Plate 11hl Str Recon 018 - [id number] Bone Infuse Bone 11-03-2016 Graft Sm - [id number] Bone Infuse Bone 05-25-2017 Graft Xsm - [id number] Cement Bone 12-24-2016 Radiopaque Simplex P Single Dose - [id number] Tube Sz8 Trach 08-26-2016 Cuffed - [id number] Tube 22fr Feeding 08-26-2016 Gastrostomy Junior - [id number] Screw 2.4 X 32mm Va 08-28-19 17 Lock Self-Tap Strdrv Rec - [id number] Screw 2.4 X 44mm Va 08-28-19 17 Lock Self-Tap Strdrv Rec - [id number] Screw 2.4 X 36mm 08-27-2016 Cortex Self-Tap T8 Strdrv Rec - [id number] Screw 2.4 X 38mm 08-27-2016 Cortex Self-Tap T8 Strdrv Rec - [id number] Wire K .045 X 5.5in 08-28-19 17 W/Wire Guide - [id number] Plate 2.4mm 2.7mm 08-27-2016 Va-Lock Mesh 5 X 12hls - [id number] Wire 15 X 150mm 08-27-2016 Compression Thrd - [id number] 1.6mm Compression 08-27-2016 Wires 20mm Thread Length, 1500mm Total Length Screw 2.4 X 18mm Moraima 017 Ang Lock Strdrv - [id number] Screw 2.4 X 20mm Moraima 017 Ang Lock Strdrv - [id number] Screw 2.4 X 22mm Moraima 017 Ang Lock Strdrv - [id number] Hemostat 8 X 12.5cm 11-04-19 17 X 10mm Surgifoam Gelatin Sponge - [id number] Screw 2.5 X 4mm Ti 7 Schanz 14mm Thrd Body - [id number] Hemostat 2 X 14in 12-03-2016 Surgicel - [id number] Hemostat 8 X 6.25cm 05-25-19 18 X 10mm Surgifoam Gelatin Sponge - [id number] Screw 2 X 10mm Cross 018 Pin Locking - [id number] Screw 2 X 14mm Cross 018 Pin Locking - [id number] Plate 11hl Str Recon 018 - [id number] Bone Infuse Bone 11-03-2016 Graft Sm - [id number] Bone Infuse Bone 05-25-2017 Graft Xsm - [id number] Cement Bone 12-24-2016 Radiopaque Simplex P Single Dose - [id number] Tube Sz8 Trach 08-26-2016 Cuffed - [id number] Tube 22fr Feeding 08-26-2016 Gastrostomy Junior - [id number] Screw 2.4 X 32mm Va 08-28-19 17 Lock Self-Tap Strdrv Rec - [id number] Screw 2.4 X 44mm Va 08-28-19 17 Lock Self-Tap Strdrv Rec - [id number] Screw 2.4 X 36mm 08-27-2016 Cortex Self-Tap T8 Strdrv Rec - [id number] Screw 2.4 X 38mm 08-27-2016 Cortex Self-Tap T8 Strdrv Rec - [id number] Wire K .045 X 5.5in 08-28-19 17 W/Wire Guide - [id number] Plate 2.4mm 2.7mm 08-27-2016 Va-Lock Mesh 5 X 12hls - [id number] Wire 15 X 150mm 08-27-2016 Compression Thrd - [id number] 1.6mm Compression 08-27-2016 Wires 20mm Thread Length, 1500mm Total Length Screw 2.4 X 18mm Moraima 017 Ang Lock Strdrv - [id number] Screw 2.4 X 20mm Moraima 017 Ang Lock Strdrv - [id number] Screw 2.4 X 22mm Moraima 017 Ang Lock Strdrv - [id number] Hemostat 8 X 12.5cm 11-04-19 17 X 10mm Surgifoam Gelatin Sponge - [id number] Screw 2.5 X 4mm Ti 7 Schanz 14mm Thrd Body - [id number] Hemostat 2 X 14in 12-03-2016 Surgicel - [id number] Hemostat 8 X 6.25cm 05-25-19 18 X 10mm Surgifoam Gelatin Sponge - [id number] Screw 2 X 10mm Cross 018 Pin Locking - [id number] Screw 2 X 14mm Cross 018 Pin Locking - [id number] Plate 11hl Str Recon 018 - [id number] Bone Infuse Bone 11-03-2016 Graft Sm - [id number] Bone Infuse Bone 05-25-2017 Graft Xsm - [id number] Cement Bone 12-24-2016 Radiopaque Simplex P Single Dose - [id number] Tube Sz8 Trach 08-26-2016 Cuffed - [id number] Tube 22fr Feeding 08-26-2016 Gastrostomy Junior - Ioe645889 Screw 2.4 X 32mm Va 08-28-19 17 Lock Self-Tap Strdrv Rec - [id number] Screw 2.4 X 44mm Va 08-28-19 17 Lock Self-Tap Strdrv Rec - [id number] Screw 2.4 X 36mm 08-27-2016 Cortex Self-Tap T8 Strdrv Rec - [id number] Screw 2.4 X 38mm 08-27-2016 Cortex Self-Tap T8 Strdrv Rec - [id number] Wire K .045 X 5.5in 08-28-19 17 W/Wire Guide - [id number] Plate 2.4mm 2.7mm 08-27-2016 Va-Lock Mesh 5 X 12hls - [id number] Wire 15 X 150mm 08-27-2016 Compression Thrd - [id number] 1.6mm Compression 08-27-2016 Wires 20mm Thread Length, 1500mm Total Length Screw 2.4 X 18mm Moraima 017 Ang Lock Strdrv - [id number] Screw 2.4 X 20mm Moraima 017 Ang Lock Strdrv - [id number] Screw 2.4 X 22mm Moraima 017 Ang Lock Strdrv - [id number] Hemostat 8 X 12.5cm 11-04-19 17 X 10mm Surgifoam Gelatin Sponge - [id number] Screw 2.5 X 4mm Ti 7 Schanz 14mm Thrd Body - [id number] Hemostat 2 X 14in 12-03-2016 Surgicel - [id number] Hemostat 8 X 6.25cm 05-25-19 18 X 10mm Surgifoam Gelatin Sponge - Mhv1018758 Screw 2 X 10mm Cross 018 Pin Locking - [id number] Screw 2 X 14mm Cross 018 Pin Locking - [id number] Plate 11hl Str Recon 018 - [id number] Bone Infuse Bone 11-03-2016 Graft Sm - [id number] Bone Infuse Bone 05-25-2017 Graft Xsm - [id number] Cement Bone 12-24-2016 Radiopaque Simplex P Single Dose - [id number] Tube Sz8 Trach 08-26-2016 Cuffed - Jqf168364 Tube 22fr Feeding 08-26-2016 Gastrostomy Junior - Sbx336881 Screw 2.4 X 32mm Va 08-28-19 17 Lock Self-Tap Strdrv Rec - [id number] Screw 2.4 X 44mm Va 08-28-19 17 Lock Self-Tap Strdrv Rec - [id number] Screw 2.4 X 36mm 08-27-2016 Cortex Self-Tap T8 Strdrv Rec - [id number] Screw 2.4 X 38mm 08-27-2016 Cortex Self-Tap T8 Strdrv Rec - Tfc843817 Wire K .045 X 5.5in 08-28-19 17 W/Wire Guide - [id number] Plate 2.4mm 2.7mm 08-27-2016 Va-Lock Mesh 5 X 12hls - [id number] Wire 15 X 150mm 08-27-2016 Compression Thrd - [id number] 1.6mm Compression 08-27-2016 Wires 20mm Thread Length, 1500mm Total Length Screw 2.4 X 18mm Moraima 017 Ang Lock Strdrv - [id number] Screw 2.4 X 20mm Moraima 017 Ang Lock Strdrv - [id number] Screw 2.4 X 22mm Moraima 017 Ang Lock Strdrv - [id number] Hemostat 8 X 12.5cm 11-04-19 17 X 10mm Surgifoam Gelatin Sponge - [id number] Screw 2.5 X 4mm Ti 7 Schanz 14mm Thrd Body - [id number] Hemostat 2 X 14in 12-03-2016 Surgicel - [id number] Hemostat 8 X 6.25cm 05-25-19 18 X 10mm Surgifoam Gelatin Sponge - [id number] Screw 2 X 10mm Cross 018 Pin Locking - [id number] Screw 2 X 14mm Cross 018 Pin Locking - [id number] Plate 11hl Str Recon 018 - [id number] Bone Infuse Bone 11-03-2016 Graft Sm - [id number] Cement Bone 12-24-2016 Radiopaque Simplex P Single Dose - [id number] Tube Sz8 Trach 08-26-2016 Cuffed - Zvw099344 Tube 22fr Feeding 08-26-2016 Gastrostomy Junior - Wgu777698 Screw 2.4 X 32mm Va 08-28-19 17 Lock Self-Tap Strdrv Rec - [id number] Screw 2.4 X 44mm Va 08-28-19 17 Lock Self-Tap Strdrv Rec - [id number] Screw 2.4 X 36mm 08-27-2016 Cortex Self-Tap T8 Strdrv Rec - [id number] Screw 2.4 X 38mm 08-27-2016 Cortex Self-Tap T8 Strdrv Rec - [id number] Wire K .045 X 5.5in 08-28-19 17 W/Wire Guide - [id number] Plate 2.4mm 2.7mm 08-27-2016 Va-Lock Mesh 5 X 12hls - [id number] Wire 15 X 150mm 08-27-2016 Compression Thrd - [id number] 1.6mm Compression 08-27-2016 Wires 20mm Thread Length, 1500mm Total Length Screw 2.4 X 18mm Omraima 017 Ang Lock Strdrv - [id number] Screw 2.4 X 20mm Moraima 017 Ang Lock Strdrv - [id number] Screw 2.4 X 22mm Moraima 017 Ang Lock Strdrv - [id number] Hemostat 8 X 12.5cm 11-04-19 17 X 10mm Surgifoam Gelatin Sponge - [id number] Screw 2.5 X 4mm Ti 7 Schanz 14mm Thrd Body - [id number] Hemostat 2 X 14in 12-03-2016 Surgicel - [id number] Bone Infuse Bone 11-03-2016 Graft Sm - [id number] Tube Sz8 Trach 08-26-2016 Cuffed - [id number] Tube 22fr Feeding 08-26-2016 Gastrostomy Junior - [id number] Screw 2.4 X 32mm Va 08-28-19 17 Lock Self-Tap Strdrv Rec - [id number] Screw 2.4 X 44mm Va 08-28-19 17 Lock Self-Tap Strdrv Rec - [id number] Screw 2.4 X 36mm 08-27-2016 Cortex Self-Tap T8 Strdrv Rec - [id number] Screw 2.4 X 38mm 08-27-2016 Cortex Self-Tap T8 Strdrv Rec - Fgc109222 Wire K .045 X 5.5in 08-28-19 17 W/Wire Guide - [id number] Plate 2.4mm 2.7mm 08-27-2016 Va-Lock Mesh 5 X 12hls - [id number] Wire 15 X 150mm 08-27-2016 Compression Thrd - [id number] 1.6mm Compression 08-27-2016 Wires 20mm Thread Length, 1500mm Total Length Screw 2.4 X 18mm Moraima 017 Ang Lock Strdrv - [id number] Screw 2.4 X 20mm Moraima 017 Ang Lock Strdrv - [id number] Screw 2.4 X 22mm Moraima 017 Ang Lock Strdrv - [id number] Hemostat 8 X 12.5cm 11-04-19 17 X 10mm Surgifoam Gelatin Sponge - [id number] Screw 2.5 X 4mm Ti 7 Schanz 14mm Thrd Body - [id number] Hemostat 2 X 14in 12-03-2016 Surgicel - [id number] Bone Infuse Bone 11-03-2016 Graft Sm - [id number] Cement Bone 12-24-2016 Radiopaque Simplex P Single Dose - [id number] Tube Sz8 Trach 08-26-2016 Cuffed - Twi154775 Tube 22fr Feeding 08-26-2016 Gastrostomy Junior - [id number] Screw 2.4 X 32mm Va 08-28-19 17 Lock Self-Tap Strdrv Rec - [id number] Screw 2.4 X 44mm Va 08-28-19 17 Lock Self-Tap Strdrv Rec - [id number] Screw 2.4 X 36mm 08-27-2016 Cortex Self-Tap T8 Strdrv Rec - [id number] Screw 2.4 X 38mm 08-27-2016 Cortex Self-Tap T8 Strdrv Rec - [id number] Wire K .045 X 5.5in 08-28-19 17 W/Wire Guide - [id number] Plate 2.4mm 2.7mm 08-27-2016 Va-Lock Mesh 5 X 12hls - [id number] Wire 15 X 150mm 08-27-2016 Compression Thrd - [id number] 1.6mm Compression 08-27-2016 Wires 20mm Thread Length, 1500mm Total Length Screw 2.4 X 18mm Moraima 017 Ang Lock Strdrv - [id number] Screw 2.4 X 20mm Moraima 017 Ang Lock Strdrv - [id number] Screw 2.4 X 22mm Moraima 017 Ang Lock Strdrv - [id number] Hemostat 8 X 12.5cm 11-04-19 17 X 10mm Surgifoam Gelatin Sponge - [id number] Screw 2.5 X 4mm Ti 7 Schanz 14mm Thrd Body - [id number] Hemostat 2 X 14in 12-03-2016 Surgicel - [id number] Bone Infuse Bone 11-03-2016 Graft Sm - [id number] Cement Bone 12-24-2016 Radiopaque Simplex P Single Dose - [id number] Tube Sz8 Trach 08-26-2016 Cuffed - [id number] Tube 22fr Feeding 08-26-2016 Gastrostomy Junior - [id number] Screw 2.4 X 32mm Va 08-28-19 17 Lock Self-Tap Strdrv Rec - [id number] Screw 2.4 X 44mm Va 08-28-19 17 Lock Self-Tap Strdrv Rec - [id number] Screw 2.4 X 36mm 08-27-2016 Cortex Self-Tap T8 Strdrv Rec - [id number] Screw 2.4 X 38mm 08-27-2016 Cortex Self-Tap T8 Strdrv Rec - [id number] Wire K .045 X 5.5in 08-28-19 17 W/Wire Guide - [id number] Plate 2.4mm 2.7mm 08-27-2016 Va-Lock Mesh 5 X 12hls - [id number] Wire 15 X 150mm 08-27-2016 Compression Thrd - [id number] 1.6mm Compression 08-27-2016 Wires 20mm Thread Length, 1500mm Total Length Screw 2.4 X 18mm Moraima 017 Ang Lock Strdrv - [id number] Screw 2.4 X 20mm Moraima 017 Ang Lock Strdrv - [id number] Screw 2.4 X 22mm Moraima 017 Ang Lock Strdrv - [id number] Hemostat 8 X 12.5cm 11-04-19 17 X 10mm Surgifoam Gelatin Sponge - [id number] Screw 2.5 X 4mm Ti 7 Schanz 14mm Thrd Body - [id number] Hemostat 2 X 14in 12-03-2016 Surgicel - [id number] Bone Infuse Bone 11-03-2016 Graft Sm - [id number] Bone Infuse Bone 05-25-2017 Graft Xsm - [id number] Cement Bone 12-24-2016 Radiopaque Simplex P Single Dose - [id number] Tube Sz8 Trach 08-26-2016 Cuffed - [id number] Tube 22fr Feeding 08-26-2016 Gastrostomy Junior - [id number] Screw 2.4 X 32mm Va 08-28-19 17 Lock Self-Tap Strdrv Rec - [id number] Screw 2.4 X 44mm Va 08-28-19 17 Lock Self-Tap Strdrv Rec - [id number] Screw 2.4 X 36mm 08-27-2016 Cortex Self-Tap T8 Strdrv Rec - [id number] Screw 2.4 X 38mm 08-27-2016 Cortex Self-Tap T8 Strdrv Rec - [id number] Wire K .045 X 5.5in 08-28-19 17 W/Wire Guide - [id number] Plate 2.4mm 2.7mm 08-27-2016 Va-Lock Mesh 5 X 12hls - [id number] Wire 15 X 150mm 08-27-2016 Compression Thrd - [id number] 1.6mm Compression 08-27-2016 Wires 20mm Thread Length, 1500mm Total Length Screw 2.4 X 18mm [place] 017 Ang Lock Strdrv - [id number] Screw 2.4 X 20mm [place] 017 Ang Lock Strdrv - [id number] Screw 2.4 X 22mm [place] 017 Ang Lock Strdrv - [id number] Hemostat 8 X 12.5cm 11-04-19 17 X 10mm Surgifoam Gelatin Sponge - [id number] Screw 2.5 X 4mm Ti 7 Schanz 14mm Thrd Body - [id number] Hemostat 2 X 14in 12-03-2016 Surgicel - [id number] Hemostat 8 X 6.25cm 05-25-19 18 X 10mm Surgifoam Gelatin Sponge - [id number] Screw 2 X 10mm Cross 018 Pin Locking - [id number] Screw 2 X 14mm Cross 018 Pin Locking - [id number] Plate 11hl Str Recon 018 - [id number] Screw 2 X 12mm Mmf 8 Self-Drill - [id number] Bone Infuse Bone 11-03-2016 Graft Sm - [id number] Tube Sz8 Trach 08-26-2016 Cuffed - [id number] Tube 22fr Feeding 08-26-2016 Gastrostomy Junior - [id number] Screw 2.4 X 32mm Va 08-28-19 17 Lock Self-Tap Strdrv Rec - [id number] Screw 2.4 X 44mm Va 08-28-19 17 Lock Self-Tap Strdrv Rec - [id number] Screw 2.4 X 36mm 08-27-2016 Cortex Self-Tap T8 Strdrv Rec - [id number] Screw 2.4 X 38mm 08-27-2016 Cortex Self-Tap T8 Strdrv Rec - [id number] Wire K .045 X 5.5in 08-28-19 17 W/Wire Guide - [id number] Plate 2.4mm 2.7mm 08-27-2016 Va-Lock Mesh 5 X 12hls - [id number] Wire 15 X 150mm 08-27-2016 Compression Thrd - [id number] 1.6mm Compression 08-27-2016 Wires 20mm Thread Length, 1500mm Total Length Screw 2.4 X 18mm [place] 017 Ang Lock Strdrv - [id number] Screw 2.4 X 20mm [place] 017 Ang Lock Strdrv - Cjg256301 Screw 2.4 X 22mm [place] 017 Ang Lock Strdrv - [id number] Hemostat 8 X 12.5cm 11-04-19 17 X 10mm Surgifoam Gelatin Sponge - [id number] Screw 2.5 X 4mm Ti 7 Schanz 14mm Thrd Body - [id number] Hemostat 2 X 14in 12-03-2016 Surgicel - [id number] Bone Infuse Bone 11-03-2016 Graft Sm - [id number] Tube Sz8 Trach 08-26-2016 Cuffed - [id number] Tube 22fr Feeding 08-26-2016 Gastrostomy Junior - [id number] Screw 2.4 X 32mm Va 08-28-19 17 Lock Self-Tap Strdrv Rec - [id number] Screw 2.4 X 44mm Va 08-28-19 17 Lock Self-Tap Strdrv Rec - [id number] Screw 2.4 X 36mm 08-27-2016 Cortex Self-Tap T8 Strdrv Rec - [id number] Screw 2.4 X 38mm 08-27-2016 Cortex Self-Tap T8 Strdrv Rec - [id number] Wire K .045 X 5.5in 08-28-19 17 W/Wire Guide - [id number] Plate 2.4mm 2.7mm 08-27-2016 Va-Lock Mesh 5 X 12hls - [id number] Wire 15 X 150mm 08-27-2016 Compression Thrd - [id number] 1.6mm Compression 08-27-2016 Wires 20mm Thread Length, 1500mm Total Length Screw 2.4 X 18mm [place] 017 Ang Lock Strdrv - [id number] Screw 2.4 X 20mm [place] 017 Ang Lock Strdrv - [id number] Screw 2.4 X 22mm [place] 017 Ang Lock Strdrv - [id number] Hemostat 8 X 12.5cm 11-04-19 17 X 10mm Surgifoam Gelatin Sponge - [id number] Screw 2.5 X 4mm Ti 7 Schanz 14mm Thrd Body - [id number] Bone Infuse Bone 11-03-2016 Graft Sm - [id number] Tube Sz8 Trach 08-26-2016 Cuffed - [id number] Tube 22fr Feeding 08-26-2016 Gastrostomy Junior - [id number] Screw 2.4 X 32mm Va 08-28-19 17 Lock Self-Tap Strdrv Rec - [id number] Screw 2.4 X 44mm Va 08-28-19 17 Lock Self-Tap Strdrv Rec - [id number] Screw 2.4 X 36mm 08-27-2016 Cortex Self-Tap T8 Strdrv Rec - [id number] Screw 2.4 X 38mm 08-27-2016 Cortex Self-Tap T8 Strdrv Rec - [id number] Wire K .045 X 5.5in 08-28-19 17 W/Wire Guide - [id number] Plate 2.4mm 2.7mm 08-27-2016 Va-Lock Mesh 5 X 12hls - [id number] Wire 15 X 150mm 08-27-2016 Compression Thrd - [id number] 1.6mm Compression 08-27-2016 Wires 20mm Thread Length, 1500mm Total Length Screw 2.4 X 18mm [place] 017 Ang Lock Strdrv - [id number] Screw 2.4 X 20mm [place] 017 Ang Lock Strdrv - [id number] Screw 2.4 X 22mm [place] 017 Ang Lock Strdrv - [id number] Hemostat 8 X 12.5cm 11-04-19 17 X 10mm Surgifoam Gelatin Sponge - [id number] Screw 2.5 X 4mm Ti 7 Schanz 14mm Thrd Body - [id number] Hemostat 2 X 14in 12-03-2016 Surgicel - [id number] Bone Infuse Bone 11-03-2016 Graft Sm - [id number] Tube Sz8 Trach 08-26-2016 Cuffed - [id number] Tube 22fr Feeding 08-26-2016 Gastrostomy Junior - [id number] Screw 2.4 X 32mm Va 08-28-19 17 Lock Self-Tap Strdrv Rec - [id number] Screw 2.4 X 44mm Va 08-28-19 17 Lock Self-Tap Strdrv Rec - [id number] Screw 2.4 X 36mm 08-27-2016 Cortex Self-Tap T8 Strdrv Rec - [id number] Screw 2.4 X 38mm 08-27-2016 Cortex Self-Tap T8 Strdrv Rec - [id number] Wire K .045 X 5.5in 08-28-19 17 W/Wire Guide - [id number] Plate 2.4mm 2.7mm 08-27-2016 Va-Lock Mesh 5 X 12hls - [id number] Wire 15 X 150mm 08-27-2016 Compression Thrd - [id number] 1.6mm Compression 08-27-2016 Wires 20mm Thread Length, 1500mm Total Length Screw 2.4 X 18mm [place] 017 Ang Lock Strdrv - [id number] Screw 2.4 X 20mm [place] 017 Ang Lock Strdrv - [id number] Screw 2.4 X 22mm [place] 017 Ang Lock Strdrv - [id number] Hemostat 8 X 12.5cm 11-04-19 17 X 10mm Surgifoam Gelatin Sponge - [id number] Screw 2.5 X 4mm Ti 7 Schanz 14mm Thrd Body - [id number] Hemostat 2 X 14in 12-03-2016 Surgicel - [id number] Bone Infuse Bone 11-03-2016 Graft Sm - [id number] Tube Sz8 Trach 08-26-2016 Cuffed - [id number] Tube 22fr Feeding 08-26-2016 Gastrostomy Junior - [id number] Screw 2.4 X 32mm Va 08-28-19 17 Lock Self-Tap Strdrv Rec - Cwg053701 Screw 2.4 X 44mm Va 08-28-19 17 Lock Self-Tap Strdrv Rec - [id number] Screw 2.4 X 36mm 08-27-2016 Cortex Self-Tap T8 Strdrv Rec - Avl793675 Screw 2.4 X 38mm 08-27-2016 Cortex Self-Tap T8 Strdrv Rec - [id number] Wire K .045 X 5.5in 08-28-19 17 W/Wire Guide - [id number] Plate 2.4mm 2.7mm 08-27-2016 Va-Lock Mesh 5 X 12hls - [id number] Wire 15 X 150mm 08-27-2016 Compression Thrd - [id number] 1.6mm Compression 08-27-2016 Wires 20mm Thread Length, 1500mm Total Length Screw 2.4 X 18mm [place] 017 Ang Lock Strdrv - [id number] Screw 2.4 X 20mm [place] 017 Ang Lock Strdrv - [id number] Screw 2.4 X 22mm [place] 017 Ang Lock Strdrv - [id number] Hemostat 8 X 12.5cm 11-04-19 17 X 10mm Surgifoam Gelatin Sponge - [id number] Screw 2.5 X 4mm Ti 7 Schanz 14mm Thrd Body - [id number] Wire 24ga Dental - 7 [id number] Plate 11hl Str Recon 017 - [id number] Screw 2 X 12mm Mmf 7 Self-Drill - [id number] Screw 2 X 8mm Cross 11-04-19 17 Pin Locking - [id number] Screw 2 X 10mm Cross 017 Pin Locking - [id number] Screw 2 X 12mm Cross 017 Pin Locking - [id number] Bone Infuse Bone 11-03-2016 Graft Sm - [id number] Cement Bone 12-24-2016 Radiopaque Simplex P Single Dose - [id number] Tube Sz8 Trach 08-26-2016 Cuffed - [id number] Tube 22fr Feeding 08-26-2016 Gastrostomy Junior - Sbg723930 Screw 2.4 X 32mm Va 08-28-19 17 Lock Self-Tap Strdrv Rec - Gpx164837 Screw 2.4 X 44mm Va 08-28-19 17 Lock Self-Tap Strdrv Rec - [id number] Screw 2.4 X 36mm 08-27-2016 Cortex Self-Tap T8 Strdrv Rec - [id number] Screw 2.4 X 38mm 08-27-2016 Cortex Self-Tap T8 Strdrv Rec - [id number] Wire K .045 X 5.5in 08-28-19 17 W/Wire Guide - [id number] Plate 2.4mm 2.7mm 08-27-2016 Va-Lock Mesh 5 X 12hls - Ohb063626 Wire 15 X 150mm 08-27-2016 Compression Thrd - [id number] 1.6mm Compression 08-27-2016 Wires 20mm Thread Length, 1500mm Total Length Screw 2.4 X 18mm [place] 017 Ang Lock Strdrv - [id number] Screw 2.4 X 20mm [place] 017 Ang Lock Strdrv - [id number] Screw 2.4 X 22mm [place] 017 Ang Lock Strdrv - [id number] Hemostat 8 X 12.5cm 11-04-19 17 X 10mm Surgifoam Gelatin Sponge - [id number] Screw 2.5 X 4mm Ti 7 Schanz 14mm Thrd Body - [id number] Hemostat 2 X 14in 12-03-2016 Surgicel - [id number] Bone Infuse Bone 11-03-2016 Graft Sm - [id number] Cement Bone 12-24-2016 Radiopaque Simplex P Single Dose - [id number] Tube Sz8 Trach 08-26-2016 Cuffed - [id number] Tube 22fr Feeding 08-26-2016 Gastrostomy Junior - Mco975692 Screw 2.4 X 32mm Va 08-28-19 17 Lock Self-Tap Strdrv Rec - [id number] Screw 2.4 X 44mm Va 08-28-19 17 Lock Self-Tap Strdrv Rec - [id number] Screw 2.4 X 36mm 08-27-2016 Cortex Self-Tap T8 Strdrv Rec - Sjg447098 Screw 2.4 X 38mm 08-27-2016 Cortex Self-Tap T8 Strdrv Rec - [id number] Wire K .045 X 5.5in 08-28-19 17 W/Wire Guide - [id number] Plate 2.4mm 2.7mm 08-27-2016 Va-Lock Mesh 5 X 12hls - [id number] Wire 15 X 150mm 08-27-2016 Compression Thrd - [id number] 1.6mm Compression 08-27-2016 Wires 20mm Thread Length, 1500mm Total Length Screw 2.4 X 18mm [place] 017 Ang Lock Strdrv - [id number] Screw 2.4 X 20mm [place] 017 Ang Lock Strdrv - Yqp940403 Screw 2.4 X 22mm [place] 017 Ang Lock Strdrv - [id number] Hemostat 8 X 12.5cm 11-04-19 17 X 10mm Surgifoam Gelatin Sponge - [id number] Screw 2.5 X 4mm Ti 7 Schanz 14mm Thrd Body - [id number] Hemostat 2 X 14in 12-03-2016 Surgicel - [id number] Bone Infuse Bone 11-03-2016 Graft Sm - [id number] Cement Bone 12-24-2016 Radiopaque Simplex P Single Dose - [id number] Tube Sz8 Trach 08-26-2016 Cuffed - Cfs534594 Tube 22fr Feeding 08-26-2016 Gastrostomy Junior - [id number] Screw 2.4 X 32mm Va 08-28-19 17 Lock Self-Tap Strdrv Rec - [id number] Screw 2.4 X 44mm Va 08-28-19 17 Lock Self-Tap Strdrv Rec - Hwt051405 Screw 2.4 X 36mm 08-27-2016 Cortex Self-Tap T8 Strdrv Rec - Wqk812137 Screw 2.4 X 38mm 08-27-2016 Cortex Self-Tap T8 Strdrv Rec - [id number] Wire K .045 X 5.5in 08-28-19 17 W/Wire Guide - [id number] Plate 2.4mm 2.7mm 08-27-2016 Va-Lock Mesh 5 X 12hls - [id number] Wire 15 X 150mm 08-27-2016 Compression Thrd - [id number] 1.6mm Compression 08-27-2016 Wires 20mm Thread Length, 1500mm Total Length Screw 2.4 X 18mm [place] 017 Ang Lock Strdrv - [id number] Screw 2.4 X 20mm [place] 017 Ang Lock Strdrv - [id number] Screw 2.4 X 22mm [place] 017 Ang Lock Strdrv - [id number] Hemostat 8 X 12.5cm 11-04-19 17 X 10mm Surgifoam Gelatin Sponge - Aqp8092369 Screw 2.5 X 4mm Ti 7 Schanz 14mm Thrd Body - Ksm4057512 Hemostat 2 X 14in 12-03-2016 Surgicel - [id number] Bone Infuse Bone 11-03-2016 Graft Sm - [id number] Cement Bone 12-24-2016 Radiopaque Simplex P Single Dose - [id number] Tube Sz8 Trach 08-26-2016 Cuffed - [id number] Tube 22fr Feeding 08-26-2016 Gastrostomy Junior - [id number] Screw 2.4 X 32mm Va 08-28-19 17 Lock Self-Tap Strdrv Rec - Hrt120138 Screw 2.4 X 44mm Va 08-28-19 17 Lock Self-Tap Strdrv Rec - [id number] Screw 2.4 X 36mm 08-27-2016 Cortex Self-Tap T8 Strdrv Rec - Ybm812107 Screw 2.4 X 38mm 08-27-2016 Cortex Self-Tap T8 Strdrv Rec - [id number] Wire K .045 X 5.5in 08-28-19 17 W/Wire Guide - [id number] Plate 2.4mm 2.7mm 08-27-2016 Va-Lock Mesh 5 X 12hls - [id number] Wire 15 X 150mm 08-27-2016 Compression Thrd - [id number] 1.6mm Compression 08-27-2016 Wires 20mm Thread Length, 1500mm Total Length Screw 2.4 X 18mm [place] 017 Ang Lock Strdrv - [id number] Screw 2.4 X 20mm [place] 017 Ang Lock Strdrv - [id number] Screw 2.4 X 22mm [place] 017 Ang Lock Strdrv - [id number] Hemostat 8 X 12.5cm 11-04-19 17 X 10mm Surgifoam Gelatin Sponge - Wmf8324767 Screw 2.5 X 4mm Ti 7 Schanz 14mm Thrd Body - Yoo2750927 Hemostat 2 X 14in 12-03-2016 Surgicel - [id number] Bone Infuse Bone 11-03-2016 Graft Sm - [id number] Cement Bone 12-24-2016 Radiopaque Simplex P Single Dose - Cjv1089984 Tube Sz8 Trach 08-26-2016 Cuffed - Cxo815628 Tube 22fr Feeding 08-26-2016 Gastrostomy Junior - Huk454173 Screw 2.4 X 32mm Va 08-28-19 17 Lock Self-Tap Strdrv Rec - Eyo187265 Screw 2.4 X 44mm Va 08-28-19 17 Lock Self-Tap Strdrv Rec - Gax273769 Screw 2.4 X 36mm 08-27-2016 Cortex Self-Tap T8 Strdrv Rec - [id number] Screw 2.4 X 38mm 08-27-2016 Cortex Self-Tap T8 Strdrv Rec - Fzx721176 Wire K .045 X 5.5in 08-28-19 17 W/Wire Guide - [id number] Plate 2.4mm 2.7mm 08-27-2016 Va-Lock Mesh 5 X 12hls - [id number] Wire 15 X 150mm 08-27-2016 Compression Thrd - [id number] 1.6mm Compression 08-27-2016 Wires 20mm Thread Length, 1500mm Total Length Screw 2.4 X 18mm [place] 017 Ang Lock Strdrv - [id number] Screw 2.4 X 20mm [place] 017 Ang Lock Strdrv - [id number] Screw 2.4 X 22mm [place] 017 Ang Lock Strdrv - [id number] Hemostat 8 X 12.5cm 11-04-19 17 X 10mm Surgifoam Gelatin Sponge - Fdc3791779 Screw 2.5 X 4mm Ti 7 Schanz 14mm Thrd Body - [id number] Hemostat 2 X 14in 12-03-2016 Surgicel - [id number] Bone Infuse Bone 11-03-2016 Graft Sm - Onk1663361 Cement Bone 12-24-2016 Radiopaque Simplex P Single Dose - [id number] Tube Sz8 Trach 08-26-2016 Cuffed - [id number] Tube 22fr Feeding 08-26-2016 Gastrostomy Junior - Zwq250136 Screw 2.4 X 32mm Va 08-28-19 17 Lock Self-Tap Strdrv Rec - [id number] Screw 2.4 X 44mm Va 08-28-19 17 Lock Self-Tap Strdrv Rec - Yxs303435 Screw 2.4 X 36mm 08-27-2016 Cortex Self-Tap T8 Strdrv Rec - [id number] Screw 2.4 X 38mm 08-27-2016 Cortex Self-Tap T8 Strdrv Rec - [id number] Wire K .045 X 5.5in 08-28-19 17 W/Wire Guide - [id number] Plate 2.4mm 2.7mm 08-27-2016 Va-Lock Mesh 5 X 12hls - [id number] Wire 15 X 150mm 08-27-2016 Compression Thrd - [id number] 1.6mm Compression 08-27-2016 Wires 20mm Thread Length, 1500mm Total Length Screw 2.4 X 18mm [place] 017 Ang Lock Strdrv - [id number] Screw 2.4 X 20mm [place] 017 Ang Lock Strdrv - [id number] Screw 2.4 X 22mm [place] 017 Ang Lock Strdrv - [id number] Hemostat 8 X 12.5cm 11-04-19 17 X 10mm Surgifoam Gelatin Sponge - [id number] Screw 2.5 X 4mm Ti 7 Schanz 14mm Thrd Body - [id number] Hemostat 2 X 14in 12-03-2016 Surgicel - [id number] Bone Infuse Bone 11-03-2016 Graft Sm - [id number] Cement Bone 12-24-2016 Radiopaque Simplex P Single Dose - [id number] Tube Sz8 Trach 08-26-2016 Cuffed - Boe985819 Tube 22fr Feeding 08-26-2016 Gastrostomy Junior - Ftr354215 Screw 2.4 X 32mm Va 08-28-19 17 Lock Self-Tap Strdrv Rec - [id number] Screw 2.4 X 44mm Va 08-28-19 17 Lock Self-Tap Strdrv Rec - [id number] Screw 2.4 X 36mm 08-27-2016 Cortex Self-Tap T8 Strdrv Rec - [id number] Screw 2.4 X 38mm 08-27-2016 Cortex Self-Tap T8 Strdrv Rec - Fge499365 Wire K .045 X 5.5in 08-28-19 17 W/Wire Guide - [id number] Plate 2.4mm 2.7mm 08-27-2016 Va-Lock Mesh 5 X 12hls - [id number] Wire 15 X 150mm 08-27-2016 Compression Thrd - [id number] 1.6mm Compression 08-27-2016 Wires 20mm Thread Length, 1500mm Total Length Screw 2.4 X 18mm [place] 017 Ang Lock Strdrv - [id number] Screw 2.4 X 20mm [place] 017 Ang Lock Strdrv - Yro393623 Screw 2.4 X 22mm [place] 017 Ang Lock Strdrv - [id number] Hemostat 8 X 12.5cm 11-04-19 17 X 10mm Surgifoam Gelatin Sponge - [id number] Screw 2.5 X 4mm Ti 7 Schanz 14mm Thrd Body - [id number] Hemostat 2 X 14in 12-03-2016 Surgicel - [id number] Bone Infuse Bone 11-03-2016 Graft Sm - [id number] Cement Bone 12-24-2016 Radiopaque Simplex P Single Dose - Wof7013588 Tube Sz8 Trach 08-26-2016 Cuffed - [id number] Tube 22fr Feeding 08-26-2016 Gastrostomy Junior - Fxd758474 Screw 2.4 X 32mm Va 08-28-19 17 Lock Self-Tap Strdrv Rec - [id number] Screw 2.4 X 44mm Va 08-28-19 17 Lock Self-Tap Strdrv Rec - [id number] Screw 2.4 X 36mm 08-27-2016 Cortex Self-Tap T8 Strdrv Rec - [id number] Screw 2.4 X 38mm 08-27-2016 Cortex Self-Tap T8 Strdrv Rec - [id number] Wire K .045 X 5.5in 08-28-19 17 W/Wire Guide - [id number] Plate 2.4mm 2.7mm 08-27-2016 Va-Lock Mesh 5 X 12hls - Jzz675449 Wire 15 X 150mm 08-27-2016 Compression Thrd - [id number] 1.6mm Compression 08-27-2016 Wires 20mm Thread Length, 1500mm Total Length Screw 2.4 X 18mm [place] 017 Ang Lock Strdrv - [id number] Screw 2.4 X 20mm [place] 017 Ang Lock Strdrv - [id number] Screw 2.4 X 22mm [place] 017 Ang Lock Strdrv - Hsc735483 Hemostat 8 X 12.5cm 11-04-19 17 X 10mm Surgifoam Gelatin Sponge - [id number] Screw 2.5 X 4mm Ti 7 Schanz 14mm Thrd Body - [id number] Hemostat 2 X 14in 12-03-2016 Surgicel - [id number] Bone Infuse Bone 11-03-2016 Graft Sm - Ozv6603286 Cement Bone 12-24-2016 Radiopaque Simplex P Single Dose - Djb0908787 Tube Sz8 Trach 08-26-2016 Cuffed - Ojv843289 Tube 22fr Feeding 08-26-2016 Gastrostomy Junior - Ety690181 Screw 2.4 X 32mm Va 08-28-19 17 Lock Self-Tap Strdrv Rec - [id number] Screw 2.4 X 44mm Va 08-28-19 17 Lock Self-Tap Strdrv Rec - Bmz953137 Screw 2.4 X 36mm 08-27-2016 Cortex Self-Tap T8 Strdrv Rec - [id number] Screw 2.4 X 38mm 08-27-2016 Cortex Self-Tap T8 Strdrv Rec - [id number] Wire K .045 X 5.5in 08-28-19 17 W/Wire Guide - [id number] Plate 2.4mm 2.7mm 08-27-2016 Va-Lock Mesh 5 X 12hls - [id number] Wire 15 X 150mm 08-27-2016 Compression Thrd - [id number] 1.6mm Compression 08-27-2016 Wires 20mm Thread Length, 1500mm Total Length Screw 2.4 X 18mm [place] 017 Ang Lock Strdrv - [id number] Screw 2.4 X 20mm [place] 017 Ang Lock Strdrv - Lai093504 Screw 2.4 X 22mm [place] 017 Ang Lock Strdrv - [id number] Hemostat 8 X 12.5cm 11-04-19 17 X 10mm Surgifoam Gelatin Sponge - [id number] Screw 2.5 X 4mm Ti 7 Schanz 14mm Thrd Body - Upy1968974 Hemostat 2 X 14in 12-03-2016 Surgicel - [id number] Bone Infuse Bone 11-03-2016 Graft Sm - [id number] Cement Bone 12-24-2016 Radiopaque Simplex P Single Dose - Grl3934739 Tube Sz8 Trach 08-26-2016 Cuffed - Kjo459726 Tube 22fr Feeding 08-26-2016 Gastrostomy Junior - Bsb654792 Screw 2.4 X 32mm Va 08-28-19 17 Lock Self-Tap Strdrv Rec - Uzo432995 Screw 2.4 X 44mm Va 08-28-19 17 Lock Self-Tap Strdrv Rec - [id number] Screw 2.4 X 36mm 08-27-2016 Cortex Self-Tap T8 Strdrv Rec - Rxg037134 Screw 2.4 X 38mm 08-27-2016 Cortex Self-Tap T8 Strdrv Rec - [id number] Wire K .045 X 5.5in 08-28-19 17 W/Wire Guide - [id number] Plate 2.4mm 2.7mm 08-27-2016 Va-Lock Mesh 5 X 12hls - [id number] Wire 15 X 150mm 08-27-2016 Compression Thrd - [id number] 1.6mm Compression 08-27-2016 Wires 20mm Thread Length, 1500mm Total Length Screw 2.4 X 18mm [place] 017 Ang Lock Strdrv - [id number] Screw 2.4 X 20mm [place] 017 Ang Lock Strdrv - [id number] Screw 2.4 X 22mm [place] 017 Ang Lock Strdrv - [id number] Hemostat 8 X 12.5cm 11-04-19 17 X 10mm Surgifoam Gelatin Sponge - [id number] Screw 2.5 X 4mm Ti 7 Schanz 14mm Thrd Body - [id number] Hemostat 2 X 14in 12-03-2016 Surgicel - [id number] Bone Infuse Bone 11-03-2016 Graft Sm - [id number] Bone Infuse Bone 05-25-2017 Graft Xsm - [id number] Cement Bone 12-24-2016 Radiopaque Simplex P Single Dose - [id number] Tube Sz8 Trach 08-26-2016 Cuffed - Jom577725 Tube 22fr Feeding 08-26-2016 Gastrostomy Junior - [id number] Screw 2.4 X 32mm Va 08-28-19 17 Lock Self-Tap Strdrv Rec - [id number] Screw 2.4 X 44mm Va 08-28-19 17 Lock Self-Tap Strdrv Rec - Cku777709 Screw 2.4 X 36mm 08-27-2016 Cortex Self-Tap T8 Strdrv Rec - Pqy083038 Screw 2.4 X 38mm 08-27-2016 Cortex Self-Tap T8 Strdrv Rec - Gzu758990 Wire K .045 X 5.5in 08-28-19 17 W/Wire Guide - [id number] Plate 2.4mm 2.7mm 08-27-2016 Va-Lock Mesh 5 X 12hls - Lhp544296 Wire 15 X 150mm 08-27-2016 Compression Thrd - [id number] 1.6mm Compression 08-27-2016 Wires 20mm Thread Length, 1500mm Total Length Screw 2.4 X 18mm [place] 017 Ang Lock Strdrv - [id number] Screw 2.4 X 20mm [place] 017 Ang Lock Strdrv - [id number] Screw 2.4 X 22mm [place] 017 Ang Lock Strdrv - [id number] Hemostat 8 X 12.5cm 11-04-19 17 X 10mm Surgifoam Gelatin Sponge - [id number] Screw 2.5 X 4mm Ti 7 Schanz 14mm Thrd Body - Vnp8638016 Hemostat 2 X 14in 12-03-2016 Surgicel - [id number] Hemostat 8 X 6.25cm 05-25-19 18 X 10mm Surgifoam Gelatin Sponge - [id number] Screw 2 X 10mm Cross 018 Pin Locking - [id number] Screw 2 X 14mm Cross 018 Pin Locking - [id number] Plate 11hl Str Recon 018 - [id number] Bone Infuse Bone 11-03-2016 Graft Sm - [id number] Cement Bone 12-24-2016 Radiopaque Simplex P Single Dose - [id number] Tube Sz8 Trach 08-26-2016 Cuffed - Rpg153544 Tube 22fr Feeding 08-26-2016 Gastrostomy Junior - Aze755075 Screw 2.4 X 32mm Va 08-28-19 17 Lock Self-Tap Strdrv Rec - [id number] Screw 2.4 X 44mm Va 08-28-19 17 Lock Self-Tap Strdrv Rec - Gav191114 Screw 2.4 X 36mm 08-27-2016 Cortex Self-Tap T8 Strdrv Rec - Gtd052372 Screw 2.4 X 38mm 08-27-2016 Cortex Self-Tap T8 Strdrv Rec - [id number] Wire K .045 X 5.5in 08-28-19 17 W/Wire Guide - [id number] Plate 2.4mm 2.7mm 08-27-2016 Va-Lock Mesh 5 X 12hls - [id number] Wire 15 X 150mm 08-27-2016 Compression Thrd - [id number] 1.6mm Compression 08-27-2016 Wires 20mm Thread Length, 1500mm Total Length Screw 2.4 X 18mm [place] 017 Ang Lock Strdrv - [id number] Screw 2.4 X 20mm [place] 017 Ang Lock Strdrv - Uzp017898 Bone Infuse Bone 11-03-2016 Graft Sm - [id number] Hemostat 8 X 12.5cm 11-04-19 17 X 10mm Surgifoam Gelatin Sponge - [id number] Screw 2.5 X 4mm Ti 7 Schanz 14mm Thrd Body - [id number] Hemostat 2 X 14in 12-03-2016 Surgicel - [id number] Bone Infuse Bone 11-03-2016 Graft Sm - [id number] Cement Bone 12-24-2016 Radiopaque Simplex P Single Dose - [id number] Tube Sz8 Trach 08-26-2016 Cuffed - Yem290413 Tube 22fr Feeding 08-26-2016 Gastrostomy Junior - [id number] Screw 2.4 X 32mm Va 08-28-19 17 Lock Self-Tap Strdrv Rec - [id number] Screw 2.4 X 44mm Va 08-28-19 17 Lock Self-Tap Strdrv Rec - [id number] Screw 2.4 X 36mm 08-27-2016 Cortex Self-Tap T8 Strdrv Rec - [id number] Screw 2.4 X 38mm 08-27-2016 Cortex Self-Tap T8 Strdrv Rec - Yuc459070 Wire K .045 X 5.5in 08-28-19 17 W/Wire Guide - [id number] Plate 2.4mm 2.7mm 08-27-2016 Va-Lock Mesh 5 X 12hls - [id number] Wire 15 X 150mm 08-27-2016 Compression Thrd - [id number] 1.6mm Compression 08-27-2016 Wires 20mm Thread Length, 1500mm Total Length Screw 2.4 X 18mm [place] 017 Ang Lock Strdrv - Ahz388863 Screw 2.4 X 20mm [place] 017 Ang Lock Strdrv - [id number] Screw 2.4 X 22mm [place] 017 Ang Lock Strdrv - [id number] Hemostat 8 X 12.5cm 11-04-19 17 X 10mm Surgifoam Gelatin Sponge - [id number] Screw 2.5 X 4mm Ti 7 Schanz 14mm Thrd Body - [id number] Hemostat 2 X 14in 12-03-2016 Surgicel - [id number] Bone Infuse Bone 11-03-2016 Graft Sm - [id number] Cement Bone 12-24-2016 Radiopaque Simplex P Single Dose - [id number] Tube Sz8 Trach 08-26-2016 Cuffed - [id number] Tube 22fr Feeding 08-26-2016 Gastrostomy Junior - [id number] Screw 2.4 X 32mm Va 08-28-19 17 Lock Self-Tap Strdrv Rec - [id number] Screw 2.4 X 44mm Va 08-28-19 17 Lock Self-Tap Strdrv Rec - [id number] Screw 2.4 X 36mm 08-27-2016 Cortex Self-Tap T8 Strdrv Rec - [id number] Screw 2.4 X 38mm 08-27-2016 Cortex Self-Tap T8 Strdrv Rec - [id number] Wire K .045 X 5.5in 08-28-19 17 W/Wire Guide - [id number] Plate 2.4mm 2.7mm 08-27-2016 Va-Lock Mesh 5 X 12hls - [id number] Wire 15 X 150mm 08-27-2016 Compression Thrd - [id number] 1.6mm Compression 08-27-2016 Wires 20mm Thread Length, 1500mm Total Length Screw 2.4 X 18mm [place] 017 Ang Lock Strdrv - [id number] Screw 2.4 X 20mm [place] 017 Ang Lock Strdrv - [id number] Screw 2.4 X 22mm [place] 017 Ang Lock Strdrv - [id number] Hemostat 8 X 12.5cm 11-04-19 17 X 10mm Surgifoam Gelatin Sponge - [id number] Screw 2.5 X 4mm Ti 7 Schanz 14mm Thrd Body - [id number] Hemostat 2 X 14in 12-03-2016 Surgicel - [id number] Bone Infuse Bone 11-03-2016 Graft Sm - [id number] Cement Bone 12-24-2016 Radiopaque Simplex P Single Dose - [id number] Tube Sz8 Trach 08-26-2016 Cuffed - [id number] Tube 22fr Feeding 08-26-2016 Gastrostomy Junior - [id number] Screw 2.4 X 32mm Va 08-28-19 17 Lock Self-Tap Strdrv Rec - [id number] Screw 2.4 X 44mm Va 08-28-19 17 Lock Self-Tap Strdrv Rec - [id number] Screw 2.4 X 36mm 08-27-2016 Cortex Self-Tap T8 Strdrv Rec - [id number] Screw 2.4 X 38mm 08-27-2016 Cortex Self-Tap T8 Strdrv Rec - [id number] Wire K .045 X 5.5in 08-28-19 17 W/Wire Guide - [id number] Plate 2.4mm 2.7mm 08-27-2016 Va-Lock Mesh 5 X 12hls - [id number] Wire 15 X 150mm 08-27-2016 Compression Thrd - [id number] 1.6mm Compression 08-27-2016 Wires 20mm Thread Length, 1500mm Total Length Screw 2.4 X 18mm [place] 017 Ang Lock Strdrv - [id number] Screw 2.4 X 20mm [place] 017 Ang Lock Strdrv - [id number] Screw 2.4 X 22mm [place] 017 Ang Lock Strdrv - [id number] Hemostat 8 X 12.5cm 11-04-19 17 X 10mm Surgifoam Gelatin Sponge - [id number] Screw 2.5 X 4mm Ti 7 Schanz 14mm Thrd Body - [id number] Hemostat 2 X 14in 12-03-2016 Surgicel - [id number] Bone Infuse Bone 11-03-2016 Graft Sm - [id number] Bone Infuse Bone 05-25-2017 Graft Xsm - [id number] Cement Bone 12-24-2016 Radiopaque Simplex P Single Dose - [id number] Tube Sz8 Trach 08-26-2016 Cuffed - [id number] Tube 22fr Feeding 08-26-2016 Gastrostomy Junior - [id number] Screw 2.4 X 32mm Va 08-28-19 17 Lock Self-Tap Strdrv Rec - [id number] Screw 2.4 X 44mm Va 08-28-19 17 Lock Self-Tap Strdrv Rec - [id number] Screw 2.4 X 36mm 08-27-2016 Cortex Self-Tap T8 Strdrv Rec - [id number] Screw 2.4 X 38mm 08-27-2016 Cortex Self-Tap T8 Strdrv Rec - [id number] Wire K .045 X 5.5in 08-28-19 17 W/Wire Guide - [id number] Plate 2.4mm 2.7mm 08-27-2016 Va-Lock Mesh 5 X 12hls - [id number] Wire 15 X 150mm 08-27-2016 Compression Thrd - [id number] 1.6mm Compression 08-27-2016 Wires 20mm Thread Length, 1500mm Total Length Screw 2.4 X 18mm [place] 017 Ang Lock Strdrv - [id number] Screw 2.4 X 20mm [place] 017 Ang Lock Strdrv - [id number] Screw 2.4 X 22mm [place] 017 Ang Lock Strdrv - [id number] Hemostat 8 X 12.5cm 11-04-19 17 X 10mm Surgifoam Gelatin Sponge - [id number] Screw 2.5 X 4mm Ti 7 Schanz 14mm Thrd Body - [id number] Hemostat 2 X 14in 12-03-2016 Surgicel - [id number] Hemostat 8 X 6.25cm 05-25-19 18 X 10mm Surgifoam Gelatin Sponge - [id number] Screw 2 X 10mm Cross 018 Pin Locking - [id number] Screw 2 X 14mm Cross 018 Pin Locking - [id number] Plate 11hl Str Recon 018 - [id number] Bone Infuse Bone 11-03-2016 Graft Sm - [id number] Bone Infuse Bone 05-25-2017 Graft Xsm - [id number] Cement Bone 12-24-2016 Radiopaque Simplex P Single Dose - [id number] Tube Sz8 Trach 08-26-2016 Cuffed - [id number] Tube 22fr Feeding 08-26-2016 Gastrostomy Junior - [id number] Screw 2.4 X 32mm Va 08-28-19 17 Lock Self-Tap Strdrv Rec - [id number] Screw 2.4 X 44mm Va 08-28-19 17 Lock Self-Tap Strdrv Rec - [id number] Screw 2.4 X 36mm 08-27-2016 Cortex Self-Tap T8 Strdrv Rec - [id number] Screw 2.4 X 38mm 08-27-2016 Cortex Self-Tap T8 Strdrv Rec - [id number] Wire K .045 X 5.5in 08-28-19 17 W/Wire Guide - [id number] Plate 2.4mm 2.7mm 08-27-2016 Va-Lock Mesh 5 X 12hls - [id number] Wire 15 X 150mm 08-27-2016 Compression Thrd - [id number] 1.6mm Compression 08-27-2016 Wires 20mm Thread Length, 1500mm Total Length Screw 2.4 X 18mm Moraima 017 Ang Lock Strdrv - [id number] Screw 2.4 X 20mm Moraima 017 Ang Lock Strdrv - [id number] Screw 2.4 X 22mm [place] 017 Ang Lock Strdrv - [id number] Hemostat 8 X 12.5cm 11-04-19 17 X 10mm Surgifoam Gelatin Sponge - [id number] Screw 2.5 X 4mm Ti 7 Schanz 14mm Thrd Body - [id number] Hemostat 2 X 14in 12-03-2016 Surgicel - [id number] Hemostat 8 X 6.25cm 05-25-19 18 X 10mm Surgifoam Gelatin Sponge - [id number] Screw 2 X 10mm Cross 018 Pin Locking - [id number] Screw 2 X 14mm Cross 018 Pin Locking - [id number] Plate 11hl Str Recon 018 - [id number] Bone Infuse Bone 11-03-2016 Graft Sm - [id number] Bone Infuse Bone 05-25-2017 Graft Xsm - [id number] Cement Bone 12-24-2016 Radiopaque Simplex P Single Dose - [id number] Tube Sz8 Trach 08-26-2016 Cuffed - [id number] Tube 22fr Feeding 08-26-2016 Gastrostomy Junior - [id number] Screw 2.4 X 32mm Va 08-28-19 17 Lock Self-Tap Strdrv Rec - [id number] Screw 2.4 X 44mm Va 08-28-19 17 Lock Self-Tap Strdrv Rec - [id number] Screw 2.4 X 36mm 08-27-2016 Cortex Self-Tap T8 Strdrv Rec - [id number] Screw 2.4 X 38mm 08-27-2016 Cortex Self-Tap T8 Strdrv Rec - [id number] Wire K .045 X 5.5in 08-28-19 17 W/Wire Guide - [id number] Plate 2.4mm 2.7mm 08-27-2016 Va-Lock Mesh 5 X 12hls - [id number] Wire 15 X 150mm 08-27-2016 Compression Thrd - [id number] 1.6mm Compression 08-27-2016 Wires 20mm Thread Length, 1500mm Total Length Screw 2.4 X 18mm Mor[place] 017 Ang Lock Strdrv - [id number] Screw 2.4 X 20mm [place] 017 Ang Lock Strdrv - [id number] Screw 2.4 X 22mm [place] 017 Ang Lock Strdrv - [id number] Hemostat 8 X 12.5cm 11-04-19 17 X 10mm Surgifoam Gelatin Sponge - [id number] Screw 2.5 X 4mm Ti 7 Schanz 14mm Thrd Body - [id number] Hemostat 2 X 14in 12-03-2016 Surgicel - [id number] Hemostat 8 X 6.25cm 05-25-19 18 X 10mm Surgifoam Gelatin Sponge - [id number] Screw 2 X 10mm Cross 018 Pin Locking - [id number] Screw 2 X 14mm Cross 018 Pin Locking - [id number] Plate 11hl Str Recon 018 - [id number] Bone Infuse Bone 11-03-2016 Graft Sm - [id number] Bone Infuse Bone 05-25-2017 Graft Xsm - [id number] Cement Bone 12-24-2016 Radiopaque Simplex P Single Dose - [id number] Tube Sz8 Trach 08-26-2016 Cuffed - [id number] Tube 22fr Feeding 08-26-2016 Gastrostomy Junior - [id number] Screw 2.4 X 32mm Va 08-28-19 17 Lock Self-Tap Strdrv Rec - [id number] Screw 2.4 X 44mm Va 08-28-19 17 Lock Self-Tap Strdrv Rec - [id number] Screw 2.4 X 36mm 08-27-2016 Cortex Self-Tap T8 Strdrv Rec - [id number] Screw 2.4 X 38mm 08-27-2016 Cortex Self-Tap T8 Strdrv Rec - [id number] Wire K .045 X 5.5in 08-28-19 17 W/Wire Guide - [id number] Plate 2.4mm 2.7mm 08-27-2016 Va-Lock Mesh 5 X 12hls - Owh199515 Wire 15 X 150mm 08-27-2016 Compression Thrd - [id number] 1.6mm Compression 08-27-2016 Wires 20mm Thread Length, 1500mm Total Length Screw 2.4 X 18mm Mor[place] 017 Ang Lock Strdrv - [id number] Screw 2.4 X 20mm [place] 017 Ang Lock Strdrv - [id number] Screw 2.4 X 22mm [place] 017 Ang Lock Strdrv - [id number] Hemostat 8 X 12.5cm 11-04-19 17 X 10mm Surgifoam Gelatin Sponge - [id number] Screw 2.5 X 4mm Ti 7 Schanz 14mm Thrd Body - [id number] Hemostat 2 X 14in 12-03-2016 Surgicel - [id number] Hemostat 8 X 6.25cm 05-25-19 18 X 10mm Surgifoam Gelatin Sponge - [id number] Screw 2 X 10mm Cross 018 Pin Locking - [id number] Screw 2 X 14mm Cross 018 Pin Locking - [id number] Plate 11hl Str Recon 018 - [id number] Bone Infuse Bone 11-03-2016 Graft Sm - [id number] Bone Infuse Bone 05-25-2017 Graft Xsm - [id number] Cement Bone 12-24-2016 Radiopaque Simplex P Single Dose - [id number] Tube Sz8 Trach 08-26-2016 Cuffed - [id number] Tube 22fr Feeding 08-26-2016 Gastrostomy Junior - [id number] Screw 2.4 X 32mm Va 08-28-19 17 Lock Self-Tap Strdrv Rec - [id number] Screw 2.4 X 44mm Va 08-28-19 17 Lock Self-Tap Strdrv Rec - Qiq328835 Screw 2.4 X 36mm 08-27-2016 Cortex Self-Tap T8 Strdrv Rec - Ouz512229 Screw 2.4 X 38mm 08-27-2016 Cortex Self-Tap T8 Strdrv Rec - [id number] Wire K .045 X 5.5in 08-28-19 17 W/Wire Guide - [id number] Plate 2.4mm 2.7mm 08-27-2016 Va-Lock Mesh 5 X 12hls - [id number] Wire 15 X 150mm 08-27-2016 Compression Thrd - [id number] 1.6mm Compression 08-27-2016 Wires 20mm Thread Length, 1500mm Total Length Screw 2.4 X 18mm [place] 017 Ang Lock Strdrv - [id number] Screw 2.4 X 20mm [place] 017 Ang Lock Strdrv - [id number] Screw 2.4 X 22mm [place] 017 Ang Lock Strdrv - [id number] Hemostat 8 X 12.5cm 11-04-19 17 X 10mm Surgifoam Gelatin Sponge - [id number] Screw 2.5 X 4mm Ti 7 Schanz 14mm Thrd Body - Kyz6808572 Hemostat 2 X 14in 12-03-2016 Surgicel - [id number] Hemostat 8 X 6.25cm 05-25-19 18 X 10mm Surgifoam Gelatin Sponge - Kzd2090482 Screw 2 X 10mm Cross 018 Pin Locking - [id number] Screw 2 X 14mm Cross 018 Pin Locking - [id number] Plate 11hl Str Recon 018 - [id number] Bone Infuse Bone 11-03-2016 Graft Sm - [id number] Bone Infuse Bone 05-25-2017 Graft Xsm - [id number] Cement Bone 12-24-2016 Radiopaque Simplex P Single Dose - [id number] Tube Sz8 Trach 08-26-2016 Cuffed - Aje391182 Tube 22fr Feeding 08-26-2016 Gastrostomy Junior - [id number] Screw 2.4 X 32mm Va 08-28-19 17 Lock Self-Tap Strdrv Rec - [id number] Screw 2.4 X 44mm Va 08-28-19 17 Lock Self-Tap Strdrv Rec - Myz175038 Screw 2.4 X 36mm 08-27-2016 Cortex Self-Tap T8 Strdrv Rec - Rwj221779 Screw 2.4 X 38mm 08-27-2016 Cortex Self-Tap T8 Strdrv Rec - [id number] Wire K .045 X 5.5in 08-28-19 17 W/Wire Guide - [id number] Plate 2.4mm 2.7mm 08-27-2016 Va-Lock Mesh 5 X 12hls - [id number] Wire 15 X 150mm 08-27-2016 Compression Thrd - [id number] 1.6mm Compression 08-27-2016 Wires 20mm Thread Length, 1500mm Total Length Screw 2.4 X 18mm [place] 017 Ang Lock Strdrv - Etr175919 Screw 2.4 X 20mm [place] 017 Ang Lock Strdrv - Ipv130677 Screw 2.4 X 22mm [place] 017 Ang Lock Strdrv - [id number] Hemostat 8 X 12.5cm 11-04-19 17 X 10mm Surgifoam Gelatin Sponge - [id number] Screw 2.5 X 4mm Ti 7 Schanz 14mm Thrd Body - [id number] Hemostat 2 X 14in 12-03-2016 Surgicel - [id number] Hemostat 8 X 6.25cm 05-25-19 18 X 10mm Surgifoam Gelatin Sponge - [id number] Screw 2 X 10mm Cross 018 Pin Locking - [id number] Screw 2 X 14mm Cross 018 Pin Locking - [id number] Plate 11hl Str Recon 018 - [id number] Bone Infuse Bone 11-03-2016 Graft Sm - [id number] Cement Bone 12-24-2016 Radiopaque Simplex P Single Dose - [id number] Tube Sz8 Trach 08-26-2016 Cuffed - Ovu207765 Tube 22fr Feeding 08-26-2016 Gastrostomy Junior - Zdi945843 Screw 2.4 X 32mm Va 08-28-19 17 Lock Self-Tap Strdrv Rec - [id number] Screw 2.4 X 44mm Va 08-28-19 17 Lock Self-Tap Strdrv Rec - [id number] Screw 2.4 X 36mm 08-27-2016 Cortex Self-Tap T8 Strdrv Rec - Gzf149701 Screw 2.4 X 38mm 08-27-2016 Cortex Self-Tap T8 Strdrv Rec - Hze245843 Wire K .045 X 5.5in 08-28-19 17 W/Wire Guide - [id number] Plate 2.4mm 2.7mm 08-27-2016 Va-Lock Mesh 5 X 12hls - [id number] Wire 15 X 150mm 08-27-2016 Compression Thrd - [id number] 1.6mm Compression 08-27-2016 Wires 20mm Thread Length, 1500mm Total Length Screw 2.4 X 18mm [place] 017 Ang Lock Strdrv - [id number] Screw 2.4 X 20mm [place] 017 Ang Lock Strdrv - [id number] Screw 2.4 X 22mm [place] 017 Ang Lock Strdrv - [id number] Hemostat 8 X 12.5cm 11-04-19 17 X 10mm Surgifoam Gelatin Sponge - Pvy1597733 Screw 2.5 X 4mm Ti 7 Schanz 14mm Thrd Body - [id number] Hemostat 2 X 14in 12-03-2016 Surgicel - [id number] Bone Infuse Bone 11-03-2016 Graft Sm - [id number] Bone Infuse Bone 05-25-2017 Graft Xsm - [id number] Cement Bone 12-24-2016 Radiopaque Simplex P Single Dose - [id number] Tube Sz8 Trach 08-26-2016 Cuffed - [id number] Tube 22fr Feeding 08-26-2016 Gastrostomy Junior - Flq195855 Screw 2.4 X 32mm Va 08-28-19 17 Lock Self-Tap Strdrv Rec - [id number] Screw 2.4 X 44mm Va 08-28-19 17 Lock Self-Tap Strdrv Rec - [id number] Screw 2.4 X 36mm 08-27-2016 Cortex Self-Tap T8 Strdrv Rec - [id number] Screw 2.4 X 38mm 08-27-2016 Cortex Self-Tap T8 Strdrv Rec - [id number] Wire K .045 X 5.5in 08-28-19 17 W/Wire Guide - [id number] Plate 2.4mm 2.7mm 08-27-2016 Va-Lock Mesh 5 X 12hls - Upz136083 Wire 15 X 150mm 08-27-2016 Compression Thrd - [id number] 1.6mm Compression 08-27-2016 Wires 20mm Thread Length, 1500mm Total Length Screw 2.4 X 18mm [place] 017 Ang Lock Strdrv - [id number] Screw 2.4 X 20mm [place] 017 Ang Lock Strdrv - Fkd710400 Screw 2.4 X 22mm [place] 017 Ang Lock Strdrv - [id number] Hemostat 8 X 12.5cm 11-04-19 17 X 10mm Surgifoam Gelatin Sponge - [id number] Screw 2.5 X 4mm Ti 7 Schanz 14mm Thrd Body - [id number] Hemostat 2 X 14in 12-03-2016 Surgicel - [id number] Hemostat 8 X 6.25cm 05-25-19 18 X 10mm Surgifoam Gelatin Sponge - [id number] Screw 2 X 10mm Cross 018 Pin Locking - [id number] Screw 2 X 14mm Cross 018 Pin Locking - [id number] Plate 11hl Str Recon 018 - [id number] Bone Infuse Bone 11-03-2016 Graft Sm - [id number] Bone Infuse Bone 05-25-2017 Graft Xsm - [id number] Bone Infuse Bone 05-12-2018 Graft Sm - [id number] Cement Bone 12-24-2016 Radiopaque Simplex P Single Dose - [id number] Tube Sz8 Trach 08-26-2016 Cuffed - [id number] Tube 22fr Feeding 08-26-2016 Gastrostomy Junior - Atv090166 Screw 2.4 X 32mm Va 08-28-19 17 Lock Self-Tap Strdrv Rec - [id number] Screw 2.4 X 44mm Va 08-28-19 17 Lock Self-Tap Strdrv Rec - [id number] Screw 2.4 X 36mm 08-27-2016 Cortex Self-Tap T8 Strdrv Rec - [id number] Screw 2.4 X 38mm 08-27-2016 Cortex Self-Tap T8 Strdrv Rec - [id number] Wire K .045 X 5.5in 08-28-19 17 W/Wire Guide - [id number] Plate 2.4mm 2.7mm 08-27-2016 Va-Lock Mesh 5 X 12hls - [id number] Wire 15 X 150mm 08-27-2016 Compression Thrd - [id number] 1.6mm Compression 08-27-2016 Wires 20mm Thread Length, 1500mm Total Length Screw 2.4 X 18mm [place] 017 Ang Lock Strdrv - [id number] Screw 2.4 X 20mm [place] 017 Ang Lock Strdrv - [id number] Screw 2.4 X 22mm [place] 017 Ang Lock Strdrv - [id number] Hemostat 8 X 12.5cm 11-04-19 17 X 10mm Surgifoam Gelatin Sponge - [id number] Screw 2.5 X 4mm Ti 7 Schanz 14mm Thrd Body - Gnv7926863 Hemostat 2 X 14in 12-03-2016 Surgicel - [id number] Hemostat 8 X 6.25cm 05-25-19 18 X 10mm Surgifoam Gelatin Sponge - Bhz4538778 Plate 14hl Fracture 05-12-19 19 - Twm7546745 Screw 2 X 14mm Cross 019 Pin Locking - [id number] Screw 2 X 10mm Cross 019 Pin Locking - [id number] Screw 2 X 8mm Cross 05-12-19 19 Pin Locking - [id number] Screw 2 X 16mm Cross 019 Pin Locking - [id number] Screw 2 X 10mm Cross 018 Pin Locking - [id number] Screw 2 X 14mm Cross 018 Pin Locking - [id number] Plate 11hl Str Recon 018 - [id number] Bone Infuse Bone 11-03-2016 Graft Sm - [id number] Bone Infuse Bone 05-25-2017 Graft Xsm - [id number] Bone Infuse Bone 05-12-2018 Graft Sm - [id number] Cement Bone 12-24-2016 Radiopaque Simplex P Single Dose - [id number] Tube Sz8 Trach 08-26-2016 Cuffed - [id number] Tube 22fr Feeding 08-26-2016 Gastrostomy Junior - [id number] Screw 2.4 X 32mm Va 08-28-19 17 Lock Self-Tap Strdrv Rec - Bdv870853 Screw 2.4 X 44mm Va 08-28-19 17 Lock Self-Tap Strdrv Rec - Dqy767104 Screw 2.4 X 36mm 08-27-2016 Cortex Self-Tap T8 Strdrv Rec - Lof030739 Screw 2.4 X 38mm 08-27-2016 Cortex Self-Tap T8 Strdrv Rec - [id number] Wire K .045 X 5.5in 08-28-19 17 W/Wire Guide - [id number] Plate 2.4mm 2.7mm 08-27-2016 Va-Lock Mesh 5 X 12hls - [id number] Wire 15 X 150mm 08-27-2016 Compression Thrd - [id number] 1.6mm Compression 08-27-2016 Wires 20mm Thread Length, 1500mm Total Length Screw 2.4 X 18mm [place] 017 Ang Lock Strdrv - [id number] Screw 2.4 X 20mm [place] 017 Ang Lock Strdrv - [id number] Screw 2.4 X 22mm [place] 017 Ang Lock Strdrv - Onk455812 Hemostat 8 X 12.5cm 11-04-19 17 X 10mm Surgifoam Gelatin Sponge - Tba7154536 Screw 2.5 X 4mm Ti 7 Schanz 14mm Thrd Body - Mnu1321188 Hemostat 2 X 14in 12-03-2016 Surgicel - [id number] Hemostat 8 X 6.25cm 05-25-19 18 X 10mm Surgifoam Gelatin Sponge - [id number] Plate 14hl Fracture 05-12-19 19 - [id number] Screw 2 X 14mm Cross 019 Pin Locking - Yxa4771205 Screw 2 X 10mm Cross 019 Pin Locking - [id number] Screw 2 X 8mm Cross 05-12-19 19 Pin Locking - Jjh0949591 Screw 2 X 16mm Cross 019 Pin Locking - [id number] Bone Infuse Bone 11-03-2016 Graft Sm - Ngj0973970 Bone Infuse Bone 05-25-2017 Graft Xsm - [id number] Bone Infuse Bone 05-12-2018 Graft Sm - Dln1376360 Cement Bone 12-24-2016 Radiopaque Simplex P Single Dose - [id number] Tube Sz8 Trach 08-26-2016 Cuffed - Ztp275573 Tube 22fr Feeding 08-26-2016 Gastrostomy Junior - Ftu323966 Screw 2.4 X 32mm Va 08-28-19 17 Lock Self-Tap Strdrv Rec - [id number] Screw 2.4 X 44mm Va 08-28-19 17 Lock Self-Tap Strdrv Rec - [id number] Screw 2.4 X 36mm 08-27-2016 Cortex Self-Tap T8 Strdrv Rec - Tfv416324 Screw 2.4 X 38mm 08-27-2016 Cortex Self-Tap T8 Strdrv Rec - [id number] Wire K .045 X 5.5in 08-28-19 17 W/Wire Guide - [id number] Plate 2.4mm 2.7mm 08-27-2016 Va-Lock Mesh 5 X 12hls - Ebz467197 Wire 15 X 150mm 08-27-2016 Compression Thrd - [id number] 1.6mm Compression 08-27-2016 Wires 20mm Thread Length, 1500mm Total Length Screw 2.4 X 18mm [place] 017 Ang Lock Strdrv - [id number] Screw 2.4 X 20mm [place] 017 Ang Lock Strdrv - Efr396706 Screw 2.4 X 22mm [place] 017 Ang Lock Strdrv - [id number] Hemostat 8 X 12.5cm 11-04-19 17 X 10mm Surgifoam Gelatin Sponge - [id number] Screw 2.5 X 4mm Ti 7 Schanz 14mm Thrd Body - [id number] Hemostat 2 X 14in 12-03-2016 Surgicel - [id number] Hemostat 8 X 6.25cm 05-25-19 18 X 10mm Surgifoam Gelatin Sponge - [id number] Screw 2.5 X 4mm Ti 9 Schanz 10mm Thrd Ramus - Joa0342791 Screw 2.5 X 4mm Ti 9 Schanz 14mm Thrd Body - [id number] Plate 14hl Fracture 05-12-19 19 - [id number] Screw 2 X 14mm Cross 019 Pin Locking - [id number] Screw 2 X 10mm Cross 019 Pin Locking - [id number] Screw 2 X 8mm Cross 05-12-19 19 Pin Locking - [id number] Screw 2 X 16mm Cross 019 Pin Locking - [id number] Bone Infuse Bone 11-03-2016 Graft Sm - [id number] Bone Infuse Bone 05-25-2017 Graft Xsm - Kdz1646930 Bone Infuse Bone 05-12-2018 Graft Sm - [id number] Cement Bone 12-24-2016 Radiopaque Simplex P Single Dose - [id number] Tube Sz8 Trach 08-26-2016 Cuffed - [id number] Tube 22fr Feeding 08-26-2016 Gastrostomy Junior - Oqm428314 Screw 2.4 X 32mm Va 08-28-19 17 Lock Self-Tap Strdrv Rec - [id number] Screw 2.4 X 44mm Va 08-28-19 17 Lock Self-Tap Strdrv Rec - [id number] Screw 2.4 X 36mm 08-27-2016 Cortex Self-Tap T8 Strdrv Rec - Sko030530 Screw 2.4 X 38mm 08-27-2016 Cortex Self-Tap T8 Strdrv Rec - [id number] Wire K .045 X 5.5in 08-28-19 17 W/Wire Guide - [id number] Plate 2.4mm 2.7mm 08-27-2016 Va-Lock Mesh 5 X 12hls - Fup770379 Wire 15 X 150mm 08-27-2016 Compression Thrd - [id number] 1.6mm Compression 08-27-2016 Wires 20mm Thread Length, 1500mm Total Length Screw 2.4 X 18mm [place] 017 Ang Lock Strdrv - [id number] Screw 2.4 X 20mm [place] 017 Ang Lock Strdrv - [id number] Screw 2.4 X 22mm [place] 017 Ang Lock Strdrv - [id number] Hemostat 8 X 12.5cm 11-04-19 17 X 10mm Surgifoam Gelatin Sponge - [id number] Screw 2.5 X 4mm Ti 7 Schanz 14mm Thrd Body - Hwn9438146 Hemostat 2 X 14in 12-03-2016 Surgicel - Hfq5191617 Hemostat 8 X 6.25cm 05-25-19 18 X 10mm Surgifoam Gelatin Sponge - Xzq3126232 Screw 2.5 X 4mm Ti 9 Schanz 10mm Thrd Ramus - [id number] Screw 2.5 X 4mm Ti 9 Schanz 14mm Thrd Body - Zrw7048812 Bone Infuse Bone 11-03-2016 Graft Sm - [id number] Bone Infuse Bone 05-25-2017 Graft Xsm - [id number] Bone Infuse Bone 05-12-2018 Graft Sm - [id number] Cement Bone 12-24-2016 Radiopaque Simplex P Single Dose - [id number] Tube Sz8 Trach 08-26-2016 Cuffed - [id number] Tube 22fr Feeding 08-26-2016 Gastrostomy Junior - Zgl605688 Screw 2.4 X 32mm Va 08-28-19 17 Lock Self-Tap Strdrv Rec - [id number] Screw 2.4 X 44mm Va 08-28-19 17 Lock Self-Tap Strdrv Rec - [id number] Screw 2.4 X 36mm 08-27-2016 Cortex Self-Tap T8 Strdrv Rec - [id number] Screw 2.4 X 38mm 08-27-2016 Cortex Self-Tap T8 Strdrv Rec - [id number] Wire K .045 X 5.5in 08-28-19 17 W/Wire Guide - [id number] Plate 2.4mm 2.7mm 08-27-2016 Va-Lock Mesh 5 X 12hls - Qjn925559 Wire 15 X 150mm 08-27-2016 Compression Thrd - [id number] 1.6mm Compression 08-27-2016 Wires 20mm Thread Length, 1500mm Total Length Screw 2.4 X 18mm Mor[place]a 017 Ang Lock Strdrv - [id number] Screw 2.4 X 20mm [place] 017 Ang Lock Strdrv - [id number] Screw 2.4 X 22mm [place] 017 Ang Lock Strdrv - [id number] Hemostat 8 X 12.5cm 11-04-19 17 X 10mm Surgifoam Gelatin Sponge - [id number] Screw 2.5 X 4mm Ti 7 Schanz 14mm Thrd Body - [id number] Hemostat 2 X 14in 12-03-2016 Surgicel - [id number] Hemostat 8 X 6.25cm 05-25-19 18 X 10mm Surgifoam Gelatin Sponge - [id number] Screw 2.5 X 4mm Ti 9 Schanz 10mm Thrd Ramus - [id number] Screw 2.5 X 4mm Ti 9 Schanz 14mm Thrd Body - [id number] Bone Infuse Bone 11-03-2016 Graft Sm - [id number] Bone Infuse Bone 05-25-2017 Graft Xsm - [id number] Bone Infuse Bone 05-12-2018 Graft Sm - [id number] Cement Bone 12-24-2016 Radiopaque Simplex P Single Dose - [id number] Tube Sz8 Trach 08-26-2016 Cuffed - Zyo265905 Tube 22fr Feeding 08-26-2016 Gastrostomy Junior - Kvq283420 Screw 2.4 X 32mm Va 08-28-19 17 Lock Self-Tap Strdrv Rec - [id number] Screw 2.4 X 44mm Va 08-28-19 17 Lock Self-Tap Strdrv Rec - [id number] Screw 2.4 X 36mm 08-27-2016 Cortex Self-Tap T8 Strdrv Rec - [id number] Screw 2.4 X 38mm 08-27-2016 Cortex Self-Tap T8 Strdrv Rec - [id number] Wire K .045 X 5.5in 08-28-19 17 W/Wire Guide - [id number] Plate 2.4mm 2.7mm 08-27-2016 Va-Lock Mesh 5 X 12hls - [id number] Wire 15 X 150mm 08-27-2016 Compression Thrd - [id number] 1.6mm Compression 08-27-2016 Wires 20mm Thread Length, 1500mm Total Length Screw 2.4 X 18mm Mor[place] 017 Ang Lock Strdrv - [id number] Screw 2.4 X 20mm [place] 017 Ang Lock Strdrv - [id number] Screw 2.4 X 22mm [place] 017 Ang Lock Strdrv - [id number] Hemostat 8 X 12.5cm 11-04-19 17 X 10mm Surgifoam Gelatin Sponge - [id number] Screw 2.5 X 4mm Ti 7 Schanz 14mm Thrd Body - [id number] Hemostat 2 X 14in 12-03-2016 Surgicel - [id number] Hemostat 8 X 6.25cm 05-25-19 18 X 10mm Surgifoam Gelatin Sponge - Wib7066079 Screw 2.5 X 4mm Ti 9 Schanz 10mm Thrd Ramus - Flw7322986 Screw 2.5 X 4mm Ti 9 Schanz 14mm Thrd Body - [id number] Bone Infuse Bone 11-03-2016 Graft Sm - Kfg1327170 Bone Infuse Bone 05-25-2017 Graft Xsm - [id number] Bone Infuse Bone 05-12-2018 Graft Sm - [id number] Cement Bone 12-24-2016 Radiopaque Simplex P Single Dose - Ipk5982788 Tube Sz8 Trach 08-26-2016 Cuffed - [id number] Tube 22fr Feeding 08-26-2016 Gastrostomy Junior - [id number] Screw 2.4 X 32mm Va 08-28-19 17 Lock Self-Tap Strdrv Rec - Ico317642 Screw 2.4 X 44mm Va 08-28-19 17 Lock Self-Tap Strdrv Rec - [id number] Screw 2.4 X 36mm 08-27-2016 Cortex Self-Tap T8 Strdrv Rec - [id number] Screw 2.4 X 38mm 08-27-2016 Cortex Self-Tap T8 Strdrv Rec - Ehz845391 Wire K .045 X 5.5in 08-28-19 17 W/Wire Guide - [id number] Plate 2.4mm 2.7mm 08-27-2016 Va-Lock Mesh 5 X 12hls - [id number] Wire 15 X 150mm 08-27-2016 Compression Thrd - [id number] 1.6mm Compression 08-27-2016 Wires 20mm Thread Length, 1500mm Total Length Screw 2.4 X 18mm Mor[place]a 017 Ang Lock Strdrv - [id number] Screw 2.4 X 20mm [place] 017 Ang Lock Strdrv - [id number] Screw 2.4 X 22mm [place] 017 Ang Lock Strdrv - [id number] Hemostat 8 X 12.5cm 11-04-19 17 X 10mm Surgifoam Gelatin Sponge - [id number] Screw 2.5 X 4mm Ti 7 Schanz 14mm Thrd Body - [id number] Hemostat 2 X 14in 12-03-2016 Surgicel - [id number] Hemostat 8 X 6.25cm 05-25-19 18 X 10mm Surgifoam Gelatin Sponge - Qbg6331320 Screw 2.5 X 4mm Ti 9 Schanz 10mm Thrd Ramus - [id number] Screw 2.5 X 4mm Ti 9 Schanz 14mm Thrd Body - [id number] Bone Infuse Bone 11-03-2016 Graft Sm - [id number] Tube Sz8 Trach 08-26-2016 Cuffed - Xvw825996 Tube 22fr Feeding 08-26-2016 Gastrostomy Junior - [id number] Screw 2.4 X 32mm Va 08-28-19 17 Lock Self-Tap Strdrv Rec - [id number] Screw 2.4 X 44mm Va 08-28-19 17 Lock Self-Tap Strdrv Rec - [id number] Screw 2.4 X 36mm 08-27-2016 Cortex Self-Tap T8 Strdrv Rec - [id number] Screw 2.4 X 38mm 08-27-2016 Cortex Self-Tap T8 Strdrv Rec - [id number] Wire K .045 X 5.5in 08-28-19 17 W/Wire Guide - [id number] Plate 2.4mm 2.7mm 08-27-2016 Va-Lock Mesh 5 X 12hls - [id number] Wire 15 X 150mm 08-27-2016 Compression Thrd - [id number] 1.6mm Compression 08-27-2016 Wires 20mm Thread Length, 1500mm Total Length Screw 2.4 X 18mm [place] 017 Ang Lock Strdrv - [id number] Screw 2.4 X 20mm [place] 017 Ang Lock Strdrv - [id number] Screw 2.4 X 22mm [place] 017 Ang Lock Strdrv - [id number] Hemostat 8 X 12.5cm 11-04-19 17 X 10mm Surgifoam Gelatin Sponge - [id number] Screw 2.5 X 4mm Ti 7 Schanz 14mm Thrd Body - [id number] Hemostat 2 X 14in 12-03-2016 Surgicel - [id number] Bone Infuse Bone 11-03-2016 Graft Sm - [id number] Tube Sz8 Trach 08-26-2016 Cuffed - Cmc026883 Tube 22fr Feeding 08-26-2016 Gastrostomy Junior - Caq703788 Screw 2.4 X 32mm Va 08-28-19 17 Lock Self-Tap Strdrv Rec - [id number] Screw 2.4 X 44mm Va 08-28-19 17 Lock Self-Tap Strdrv Rec - [id number] Screw 2.4 X 36mm 08-27-2016 Cortex Self-Tap T8 Strdrv Rec - [id number] Screw 2.4 X 38mm 08-27-2016 Cortex Self-Tap T8 Strdrv Rec - [id number] Wire K .045 X 5.5in 08-28-19 17 W/Wire Guide - [id number] Plate 2.4mm 2.7mm 08-27-2016 Va-Lock Mesh 5 X 12hls - [id number] Wire 15 X 150mm 08-27-2016 Compression Thrd - [id number] 1.6mm Compression 08-27-2016 Wires 20mm Thread Length, 1500mm Total Length Screw 2.4 X 18mm [place] 017 Ang Lock Strdrv - [id number] Screw 2.4 X 20mm [place] 017 Ang Lock Strdrv - [id number] Screw 2.4 X 22mm [place] 017 Ang Lock Strdrv - [id number] Hemostat 8 X 12.5cm 11-04-19 17 X 10mm Surgifoam Gelatin Sponge - [id number] Screw 2.5 X 4mm Ti 7 Schanz 14mm Thrd Body - [id number] Hemostat 2 X 14in 12-03-2016 Surgicel - [id number] Bone Infuse Bone 463911_[facility] 11-03-2016 Graft Sm - [id number] Bone Infuse Bone 573918_[facility] 05-25-2017 Graft Xsm - [id number] Bone Infuse Bone 765182_[facility] 05-12-2018 Graft Sm - [id number] Cement Bone 491380_[facility] 12-24-2016 Radiopaque Simplex P Single Dose - [id number] Tube Sz8 Trach 428782_[facility] 08-26-2016 Cuffed - [id number] Tube 22fr Feeding 428815_[facility] 08-26-2016 Gastrostomy Junior - [id number] Screw 2.4 X 32mm Va 429110_[facility] 08-28-19 17 Lock Self-Tap Strdrv Rec - [id number] Screw 2.4 X 44mm Va 429111_[facility] 08-28-19 17 Lock Self-Tap Strdrv Rec - [id number] Screw 2.4 X 36mm 429112_[facility] 08-27-2016 Cortex Self-Tap T8 Strdrv Rec - [id number] Screw 2.4 X 38mm 429114_[facility] 08-27-2016 Cortex Self-Tap T8 Strdrv Rec - [id number] Wire K .045 X 5.5in 429036_[facility] 08-28-19 17 W/Wire Guide - [id number] Plate 2.4mm 2.7mm 429101_[facility] 08-27-2016 Va-Lock Mesh 5 X 12hls - [id number] Wire 15 X 150mm 429103_[facility] 08-27-2016 Compression Thrd - [id number] 1.6mm Compression 429104_[facility] 08-27-2016 Wires 20mm Thread Length, 1500mm Total Length Screw 2.4 X 18mm Moraima 429107_[facility] 017 Ang Lock Strdrv - [id number] Screw 2.4 X 20mm [place] 429108_[facility] 017 Ang Lock Strdrv - [id number] Screw 2.4 X 22mm [place]a 429109_[facility] 017 Ang Lock Strdrv - [id number] Hemostat 8 X 12.5cm 463943_[facility] 11-04-19 17 X 10mm Surgifoam Gelatin Sponge - [id number] Screw 2.5 X 4mm Ti 473967_[facility] 7 Schanz 14mm Thrd Body - [id number] Hemostat 2 X 14in 479593_[facility] 12-03-2016 Surgicel - [id number] Hemostat 8 X 6.25cm 573917_[facility] 05-25-19 18 X 10mm Surgifoam Gelatin Sponge - [id number] Screw 2.5 X 4mm Ti 771792_[facility] 9 Schanz 10mm Thrd Ramus - [id number] Screw 2.5 X 4mm Ti 771793_[facility] 9 Schanz 14mm Thrd Body - [id number] Hospital Course Kellie Vega [facility] - 03/14/2017 9:37 AM ESTFormatting of this note may be different from the original. DISCHARGE SUMMARY Patient: Honorio Prince Account: [id number] Admitted: 03/11/2017 Discharge Date/Time: No discharge date [...] Care Provider: Sasha Fields MD, , Address: [address] [place] [address] / [place] [phone] Follow Up: Mony Enriquez MD [address] [facility] [address] [place] [address] Schedule an appointment as soon as possible [...] chart reviewed. I agree with the resident/ [employer]PER[employer]OR's evaluation and plan.in this encounterKellie Vega CNP - 12/28/2016 10:22 AM EDTFormatting of this note may be different from the original. DISCHARGE SUMMARY Patient: Honorio Prince Account: [id number] Admitted: 12/21/2016 Discharge Date/Time: No discharge date [...] Care Provider: Physician No, Phone: None, Address: [facility] Follow Up: Mony Enriquez MD [address] [address] Schedule an appointment as soon as possible for a visit in 1 week(s) Sridhar Lainez MD [address] [address] Additional Information Patient instructions, including activity, were [...] original. DISCHARGE SUMMARY Patient: Honorio Prince Account: [id number] Admitted: 05/25/2017 Discharge Date/Time: No discharge date [...] Care Provider: Sasha Fields MD, , Address: [address] [place] [address] / [place] [address] Follow Up: Sridhar Lainez MD [address] [facility] [address] Schedule an appointment as soon as possible for a visit in 6 week(s) Mony Enriquez MD 285 [facility] 600 [facility] [address] Schedule an appointment as soon as [...] EST DISCHARGE SUMMARY Patient: Honorio Prince Account: [id number] Admitted: 05/12/2018 Discharge Date/Time: No discharge date [...] Care Provider: Sasha Fields MD, , Address: [address] [place] [address] / [place] [address] Follow Up: Mony Enriquez MD [address] [place] [address] Schedule an appointment as soon as possible [...] different from the original. Home Health Care: [facility] Continue current services. ? Infusion Services: [...] this encounterDischarge Instr - Care Coordination - KacieAar hall, DEE - 12/22/2016 12:04 PM [facility]: [facility] Continue current services. Infusion Services: [facility] Weekly CBC with diff, creatinine, vanco trough, ESR, CRP to Dr. Lainez at [phone]. Apply for Victims Compensation If you or your family members are innocent victims of a violent crime, financial assistance may be available. The following is a list of guidelines to help you determine whether you might be eligible for a payment. For specific questions, call the Web Press Operator?s Office at [phone]. Applications and supplemental applications can be mailed to: [address] [place] [address], 23rd Floor [place] [address] Apply online: Https://cvonlinecompensationapp.formerly [email or web address].gov/ Crime Victims Compensation Guidelines Effective July 30, 2016: [place] Crime Victim Compensation Program Statutory Changes Who [...] a child endangering or domestic violence conviction, [id number] years prior to the crime or while [...] for stolen, damaged, or lost property. The Web Press Operator?s Office will not pay victims for [...] canes, walkers, wheelchairs, and other mobility equipment. Weaver Hand fees for civil protection orders' hourly rate for legal work went up from $60.00 per hour to $100.00. The maximum amount for title attorney fees per claim was changed to $1,000.00. Reasonable travel time to attend hearings is limited to 3 hours round trip for each hearing at $30.00 per hour. The cap on individual attorneys or law firms was eliminated. A supplemental application may be filed within six years of the last decision of the Web Press Operator, an [place] Court of Claims panel commissioners, or a Court of Claims shingle trimmer.Ashleigh Hurd, SRINI - 12/28/2016Formatting of this note [...] drive, operate heavy machinery, ride motorcycles or [employer]'s, drink alcohol, or take other medications that [...] have a primary care physician please call [facility] Physician Referral Line [phone] for assistance. in this encounterDischarge Instr - Care Coordination - Piedad Phillips RN - 05/30/2017 1:46 PM ESTWeekly CBC with diff, creatinine, vanco trough, ESR, CRP to Dr. Lainez at [phone]. [facility] P:[phone] F:[phone] Vega CNP - 05/31/2017Wound Care: Change dressing [...] through Care Everywhere.NAUSEA AND VOMITING: AFTER SURGERY (MOROCCAN)POST-OP INFECTION (MOROCCAN)SEDATION (MOROCCAN) SURGERY: POST-OP BLEEDING (MOROCCAN)PICC (PERIPHERALLY INSERTED CENTRAL CATHETER) (MOROCCAN)in this encounterDischarge Instr - Care Coordination - Fransisco, Dimas García RN - 12/07/2016 10:51 AM EDTWeekly CBC with diff, creatinine, vanco trough, ESR, CRP to Dr. Lainez at [phone]. [facility] Health Nurses , fax [phone] Pt. Is staying with his mother Corinna [address] [place] [address] NljulrKellie Vega CNP - 12/07/2016Wound Care: Change dressing [...] LFT, ESR, CRP to Dr. Lainez at [phone]. [facility] Health nurses Pt is going to stay w mother Corinna Prince [phone] [facility] [address]PsbhzSavage Orozco DO - 11/25/2016Surgical Drain Care: Care [...] Log into your personal health record on https://[employer] and enter K117 in the Education box to learn more about Surgical Drain Care: Care Instructions. Current as of: September 19, 2015 Content Version: 11.2 ? 3351-7694 [employer]UECar. Care instructions adapted under license by your healthcare professional. If you have questions about a medical condition or this instruction, always ask your healthcare professional. [employer] disclaims any warranty or liability for your use of this information. The following attachments cannot be sent through Care Everywhere.PICC (PERIPHERALLY INSERTED CENTRAL CATHETER) (MOROCCAN)in this encounterDischarge Instr - Other OrdersRoxanne Chapin [...] seen in clinic in this encounterInsKim Ruiz, JOURNEYMAN LINEMAN - 05/26/2018 INJURIES: 1. Left?facial abscess 2. 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 If not, please contact the office at your earliest convenience to schedule your follow up appointment. Bring your medications and pill bottles with you to your first visit. Outpatient Trauma and Acute Care Surgery Office: [address] [facility] 7th Floor, [address] [place] [address] Hours: Tuesday-Tuesday, 8am to 4pm. If you need to speak with the trauma/surgery team after hours, please call and ask to speak with the Trauma Nurse Practitioner net web application developer. Parking: You may park in the Green Garage, which is attached to the front of the hospital. From within the garage, take the C elevators up to the 7th Floor. The office is in [address]. Computer Lab Para Professional: If you choose sand caster parking, please do so at the Main Hospital entrance. Go up to the second floor. Follow signs for the Bone and Joint Building. Group Home across the bridge, take the elevators toyour right up to the 7th floor. You may also enter from the [facility] entrance, located at the corner of [facility]. You may also enter from the [facility] entrance, located at the corner of [facility]. Take the D elevators up to the 7th Floor. Use this entrance if you are arriving by ambulance or wheelchair van. Garage or Computer Lab Para Professional parking is free with a voucher, which you will receive at your appointment. PRIMARY CARE PHYSICIAN FOLLOW UPCall and schedule a post Trauma follow up appointment with your primary care provider. If you need assistance with obtaining a primary care physician please call: [phone] MANAGING YOUR PAIN AT HOMEPain is your [...] taking a prescription pain medicine, take an hzqd-sql-dfeoutr medicine as directed such as Tylenol (Acetaminophen) [...] your doctor if you can take an tsrm-nik-zduhaee medicine. ? Keep your bandage clean and [...] Log into your personal health record on https://[employer] and enter D633 in the Education box to learn more about Skin Abscess: Care Instructions. Current as of: August 09, 2017 Content Version: 11.9 ? 9766-0050 TRUECar. Care instructions adapted under license by your healthcare professional. If you have questions about a medical condition or this instruction, always ask your healthcare professional. [employer] disclaims any warranty or liability for your use of this information. AttachmentsThe following attachments cannot be sent through Care Everywhere. Osteomyelitis (Kittitian)in this encounter Assessments Diagnosis Preoperative evaluation to [...] type Anemia, unspecified type Schizophrenia, unspecified type ([facility]) Deep vein thrombosis (DVT) prophylaxis p rescribed [...] Documents on File Type Date Recorded Patient Lapper Explanati on Advance Directives and Living 02/03/2017 10:32 AM pt declined Will Advance Directives and Living 11/27/2018 8:36 AM Will Advance Directives and Living 02/23/2018 11:36 AM Will Advance Directives and Living 06/05/2018 6:12 PM Will Documents on File Type Date Recorded Patient Lapper Explanati on Advance Directives and Living 02/03/2017 [...] 3D MD Ovi [address] [facility] [address] [place], [place] [address] Phone: Status Reason Specialty Diagnoses / Referred By Referred To Procedures Contact Contact Authorized Specialty Orthopedic Diagnoses 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, unspecified laterality, subsequent encounter Mony Enriquez Opg Otrs [facility] Surgery MD Ovi State Required/Patien [address] [address] Interest [facility] [address] [phone] Phone: Fax: Status Reason Specialty Diagnoses / Referred By Referred To Procedures Contact Contact Closed Specialty Orthopedic Diagnoses 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, unspecified laterality, subsequent encounter Mony Enriquez Opg Otrs [facility] Surgery MD Ovi [facility] Required/Patien [address] [facility] [address] [place] [phone] Phone: Fax: Status Reason Specialty Diagnoses / Procedures Referred By C ontact Referred To Contact Closed Diagnoses Broken jaw, with nonunion, subsequent encounter Mony Enriquez MD [address] [facility] [address] [place], [place] [address] Phone: Status Reason Specialty Diagnoses / Referred By Referred To Procedures Contact Contact Pending Specialty Radiology Diagnoses 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, subsequent encounter Becky [facility] Review Services Procedures CT Maxillofacial Without Contrast 3D Tahira You, [address] [place] [address] Required/Patien SUL[facility]AN [facility] [address] [facility] [address] [place] [address] Phone: [phone] Phone: History of Present Illness Mony Enriquez MD - 02/23/2018 12:17 PM EDTFormatting of this note may be different from the original. Patient Name: Dewayne Prince MR #: ?[id number] Acct #: ?[id number] : ?1980 ? Referring Physician: ?No ref. [...] FIXATION APPLICATION; ?Surgeon: Mony Enriquez MD; ?Location: [facility] Main [facility]; ?Service: Plastics ? ARCHBAR REMOVAL N/A 10/01/2016 ? Procedure: INTERMAXILLARY FIXATION SCREW REMOVAL ; ?Surgeon: Mony Enriquez MD; ?Location: [facility] Main OR; ?Service: ? ARCHBAR REMOVAL N/A 11/22/2016 ? Procedure: MANDIBLE IMF SCREW REMOVAL ; ?Surgeon: Mony Enriquez MD; ?Location: [facility] Main OR; ?Service: ? BONE GRAFT ILIAC CREST Left 11/03/2016 ? Procedure: ILIAC CREST BONE GRAFT; ?Surgeon: Mony Enriquez MD; ?Location: [facility] Main OR; ?Service: ? BONE GRAFT ILIAC CREST N/A 05/25/2017 ? Procedure: ILIAC CREST BONE GRAFT; ?Surgeon: Mony Enriquez MD; ?Location: [facility]; ?Service: Plastics ? DEBRIDEMENT WITH WOUND CLOSURE POSS SKIN GRAFT HEAD AND NECK Left 12/22/2016 ? Procedure: LEFT JAW FLAP DEBRIDEMENT W/ POSSIBLE CLOSURE; ?Surgeon: Mony Enriquez MD; ?Location: [facility]; ?Service: ? EXTERNAL FIXATOR APPLICATION MANDIBLE Left 11/03/2016 ? Procedure: MANDIBLE EXTERNAL FIXATOR REMOVAL; ?Surgeon: Mony Enriquez MD; ?Location: [facility]; ?Service: ? EXTERNAL FIXATOR REMOVAL ? 03/11/2017 ? Procedure: REMOVAL EXTERNAL FIXATOR; ?Surgeon: Mony Enriquez MD; ?Location: [facility]; ?Service: ? FLAP FREE TRUNK N/A 12/03/2016 ? Procedure: PECTORALIS MAJOR MUSCLE FLAP TO JAW SPLIT THICKNESS SKIN GRAFT LEFT MANDIBLE DEBRIDEMENT; ?Surgeon: Mony Enriquez MD; ?Location: [facility]; ?Service: ? FLAP PECTORALIS ROTATIONAL Left 12/24/2016 ? Procedure: LEFT PECTORAL FLAP ADVACEMENT FOR CLOSURE ; ?Surgeon: Mony Enriquez MD; ?Location: [facility]; ?Service: ? FLAP ROTATIONAL HEAD/NECK N/A 03/11/2017 ? Procedure: FASCIAL FLAP ROTATIONAL ; ?Surgeon: Mony Enriquez MD; ?Location: [facility]; ?Service: ? GASTROSTOMY OPEN N/A 08/26/2016 ? Procedure: GASTROSTOMY TUBE PLACEMENT; ?Surgeon: Janes Raymundo MD; ?Location: [facility]; ?Service: ? HARDWARE REMOVAL KNEE Left 03/11/2017 ? Procedure: POSSIBLE PATELLA HARDWARE REMOVAL; ?Surgeon: Anuj Lugo MD; ?Location: [facility] Main [facility]; ?Service: ? HERNIA REPAIR ? age 7 ? umbilical ? INCISION AND DRAINAGE HEAD/NECK Left 05/28/2017 ? Procedure: LEFT JAW ?ABSCESS INCISION AND DRAINAGE, REMOVAL OF JAW SCREWS AND WIRES; ?Surgeon: Mony Enriquez MD; ?Location: [facility]; ?Service: Plastics ? INCISION AND DRAINAGE LOWER EXTREMITY Left 03/11/2017 ? Procedure: LEFT KNEE WOUND INCISION AND DRAINAGE ??POSSIBLE EXTENSOR MECHANISM REPAIR ; ?Surgeon: Anuj Lugo MD; ?Location: [facility]; ?Service: ? ORIF MANDIBLE Bilateral 08/27/2016 ? Procedure: EXPLORATION OF MANDIBLE AND MIDFACE / POSSIBLE EX-FIX; ?Surgeon: Mony Enriquez MD; ?Location: [facility]; ?Service: ? ORIF MANDIBLE Left 11/03/2016 ? Procedure: MANDIBLE OPEN REDUCTION INTERNAL FIXATION ; ?Surgeon: Mony Enriquez MD; ?Location: [facility]; ?Service: ? ORIF MANDIBLE N/A 05/25/2017 ? Procedure: MANDIBLE OPEN REDUCTION INTERNAL FIXATION; ?Surgeon: Mony Enriquez MD; ?[facility]; ?Service: Plastics ? ORIF PATELLA ? 08/27/2016 ? Procedure: OPEN REDUCTION INTERNAL FIXATION PATELLA WITH I &?D; ?Surgeon: Anuj Lugo MD; ?Location: [facility]; ?Service: ? TRACHEOSTOMY N/A 08/26/2016 ? Procedure: TRACHEOSTOMY; ?Surgeon: Janes Raymundo MD; ?Location: [facility]; ?Service: ? TRAUMA CART LAPAROTOMY Left 08/26/2016 ? Procedure: EXPL LEFT NECK; ?Surgeon: Janes Raymundo MD; ?Location: [facility]; ?Service: ? Family History Problem [...] Prior to Surgery MAHAD: ? Printed on:11/01/17 8059 Medication Information Take last dose on Take [...] original. Patient Name: ?Honorio Prince MR #: ?[id number] Acct #: ?[id number] : ?1980 ? Referring Physician: ?No ref. [...] FIXATION APPLICATION; ?Surgeon: Mony Enriquez MD; ?Location: [facility]; ?Service: Plastics ? ARCHBAR REMOVAL N/A 10/01/2016 ? Procedure: INTERMAXILLARY FIXATION SCREW REMOVAL ; ?Surgeon: Mony Enriquez MD; ?Location: [facility]; ?Service: ? ARCHBAR REMOVAL N/A 11/22/2016 ? Procedure: MANDIBLE IMF SCREW REMOVAL ; ?Surgeon: Mony Enriquez MD; ?Location: [facility]; ?Service: ? BONE GRAFT ILIAC CREST Left 11/03/2016 ? Procedure: ILIAC CREST BONE GRAFT; ?Surgeon: Mony Enriquez MD; ?Location: [facility]; ?Service: ? BONE GRAFT ILIAC CREST N/A 05/25/2017 ? Procedure: ILIAC CREST BONE GRAFT; ?Surgeon: Mony Enriquez MD; ?Location: [facility]; ?Service: Plastics ? DEBRIDEMENT WITH WOUND CLOSURE POSS SKIN GRAFT HEAD AND NECK Left 12/22/2016 ? Procedure: LEFT JAW FLAP DEBRIDEMENT W/ POSSIBLE CLOSURE; ?Surgeon: Mony Enriquez MD; ?Location: [facility]; ?Service: ? EXTERNAL FIXATOR APPLICATION MANDIBLE Left 11/03/2016 ? Procedure: MANDIBLE EXTERNAL FIXATOR REMOVAL; ?Surgeon: Mony Enriquez MD; ?Location: [facility]; ?Service: ? EXTERNAL FIXATOR REMOVAL ? 03/11/2017 ? Procedure: REMOVAL EXTERNAL FIXATOR; ?Surgeon: Mony Enriquez MD; ?Location: [facility]; ?Service: ? FLAP FREE TRUNK N/A 12/03/2016 ? Procedure: PECTORALIS MAJOR MUSCLE FLAP TO JAW SPLIT THICKNESS SKIN GRAFT LEFT MANDIBLE DEBRIDEMENT; ?Surgeon: Mony Enriquez MD; ?Location: [facility]; ?Service: ? FLAP PECTORALIS ROTATIONAL Left 12/24/2016 ? Procedure: LEFT PECTORAL FLAP ADVACEMENT FOR CLOSURE ; ?Surgeon: Mony Enriquez MD; ?Location: [facility]; ?Service: ? FLAP ROTATIONAL HEAD/NECK N/A 03/11/2017 ? Procedure: FASCIAL FLAP ROTATIONAL ; ?Surgeon: Mony Enriquez MD; ?Location: [facility]; ?Service: ? GASTROSTOMY OPEN N/A 08/26/2016 ? Procedure: GASTROSTOMY TUBE PLACEMENT; ?Surgeon: Janes Raymundo MD; ?Location: [facility]; ?Service: ? HARDWARE REMOVAL KNEE Left 03/11/2017 ? Procedure: POSSIBLE PATELLA HARDWARE REMOVAL; ?Surgeon: Anuj Lugo MD; ?Location: [facility]; ?Service: ? HERNIA REPAIR ? age 7 ? umbilical ? INCISION AND DRAINAGE HEAD/NECK Left 05/28/2017 ? Procedure: LEFT JAW ?ABSCESS INCISION AND DRAINAGE, REMOVAL OF JAW SCREWS AND WIRES; ?Surgeon: Mony Enriquez MD; ?Location: [facility]; ?Service: Plastics ? INCISION AND DRAINAGE LOWER EXTREMITY Left 03/11/2017 ? Procedure: LEFT KNEE WOUND INCISION AND DRAINAGE ??POSSIBLE EXTENSOR MECHANISM REPAIR ; ?Surgeon: Anuj Lugo MD; ?Location: [facility]; ?Service: ? ORIF MANDIBLE Bilateral 08/27/2016 ? Procedure: EXPLORATION OF MANDIBLE AND MIDFACE / POSSIBLE EX-FIX; ?Surgeon: Mony Enriquez MD; ?Location: [facility]; ?Service: ? ORIF MANDIBLE Left 11/03/2016 ? Procedure: MANDIBLE OPEN REDUCTION INTERNAL FIXATION ; ?Surgeon: Mony Enriquez MD; ?Location: [facility]; ?Service: ? ORIF MANDIBLE N/A 05/25/2017 ? Procedure: MANDIBLE OPEN REDUCTION INTERNAL FIXATION; ?Surgeon: Mony Enriquez MD; ?Location:[facility]; ?Service: Plastics ? ORIF PATELLA ? 08/27/2016 ? Procedure: OPEN REDUCTION INTERNAL FIXATION PATELLA WITH I &?D; ?Surgeon: Anuj Lugo MD; ?Location: [facility]; ?Service: ? TRACHEOSTOMY N/A 08/26/2016 ? Procedure: TRACHEOSTOMY; ?Surgeon: Janes Raymundo MD; ?Location: [facility]; ?Service: ? TRAUMA CART LAPAROTOMY Left 08/26/2016 ? Procedure: EXPL LEFT NECK; ?Surgeon: Janes Raymundo MD; ?Location: [facility]; ?Service: ? Family History Problem [...] be adequate intramedullary canal diameter for reamer director data management aspirator harvesting of bone graft. There is [...] from the left femur using the reamer director data management aspirator system. Plan: I went over risk [...] Date: 05/13/18 Barriers to Discharge: No barriers [facility] Disposition D/C Disposition: Home Agency/Destination: Home Home Care Needs : None HME: None Same As Recommended : yes Transportation Type: Cab Transportation Company/Agency Name: Other (Comment)([facility]) Anticipated Discharge Plan Anticipated HME: Undetermined Anticipated Home Care Needs: Undetermined CM spoke with pt, verified demographics and discharge location. Pt will be discharging to his mother's house at [address] [place] [address]. Pt has paper scripts for discharge and his mothercan walk to the pharmacy to pick them up. CM called [facility] for transportation home, provided discharge address and cell number for contact at car pick up driver. Will continue to follow until discharged. Francis [...] left femur bone graft harvesting from reamer director data management aspirator system Plan: - Labs reviewed - [...] Income Source: Unemployed Resources Financial Resources: Other (Comment)([facility] Medicaid payer with rx coverage confirmed) Community Resources: Other (Comment)(PCP: Sasha Fields MD # [phone]) Discharge Plan Shared UM/CC and RN Source of Information: Patient Contact Phone Number: (Nancy Prince #[phone]) Living Arrangements: Parent Support Systems: Parent Functional [...] Date: 05/13/18 Barriers to Discharge: No barriers Suzei Art RN - 05/12/2018 11:42 AM MARCE [...] NOTE Patient Name: Honorio Prince MR #: [id number] Assessment and Plan: 1. Postop abscess of [...] puff 2 puff Inhalation Q6H PRN Peyton Amdaor PA-C ? amoxicillin-clavulanate (AUGMENTIN) 875-125 mg per tablet 1 tablet 1 tablet Oral Q12H [facility] Sridhar Lainez MD 1 tablet at 05/27/18 0801 ? enoxaparin (LOVENOX) syringe 30 mg 30 mg Subcutaneous BID Peyton Amador PA-C 30 mg at 05/27/18 0757 ? famotidine (PEPCID) tablet 40 mg 40 mg Oral Nightly Carroll Noyola [facility],PharmD 40 mg at 05/26/182208 ? FLUoxetine (PROZAC) [...] FIXATION APPLICATION; Surgeon: Mony Enriquez MD; Location: [facility]; Service: Plastics ? ARCHBAR REMOVAL N/A 10/01/2016 Procedure: INTERMAXILLARY FIXATION SCREW REMOVAL ; Surgeon: Mnoy Enriquez MD; Location: [facility]; Service: ? ARCHBAR REMOVAL N/A 11/22/2016 Procedure: MANDIBLE IMF SCREW REMOVAL ; Surgeon: Mony Enriquez MD; Location: [facility]; Service: ? BONE GRAFT Left 05/12/2018 Procedure: BONE GRAFT; Surgeon: Kavitha Antonio MD; Location: [facility]; Service: Orthopedic ? BONE GRAFT FACE N/A 05/12/2018 Procedure: W/ BONE GRAFT; Surgeon: Mony Enriquez MD; Location: [facility]; Service: Plastics ? BONE GRAFT ILIAC CREST Left 11/03/2016 Procedure: ILIAC CREST BONE GRAFT; Surgeon: Mony Enriquez MD; Location: [facility]; Service: ? BONE GRAFT ILIAC CREST N/A 05/25/2017 Procedure: ILIAC CREST BONE GRAFT; Surgeon: Mony Enriquez MD; Location: [facility]; Service:Plastics ? DEBRIDEMENT WITH WOUND CLOSURE POSS SKIN GRAFT HEAD AND NECK Left 12/22/2016 Procedure: LEFT JAW FLAP DEBRIDEMENT W/ POSSIBLE CLOSURE; Surgeon: Mony Enriquez MD; Location: [facility]; Service: ? DEBRIDEMENT WITH WOUND CLOSURE POSS SKIN GRAFT HEAD AND NECK N/A 05/23/2018 Procedure: MANDIBLE INCISION AND DRAINAGE WITH POSSIBLE CLOSURE; Surgeon: Leon De Leon MD; Location: [facility]; Service: Plastics ? EXTERNAL FIXATOR APPLICATION MANDIBLE Left 11/03/2016 Procedure: MANDIBLE EXTERNAL FIXATOR REMOVAL; Surgeon: Mony Enriquez MD; Location: [facility]; Service: ? EXTERNAL FIXATOR REMOVAL 03/11/2017 Procedure: REMOVAL EXTERNAL FIXATOR; Surgeon: Mony Enriquez MD; Location: [facility]; Service: ? FLAP FREE TRUNK N/A 12/03/2016 Procedure: PECTORALIS MAJOR MUSCLE FLAP TO JAW SPLIT THICKNESS SKIN GRAFT LEFT MANDIBLE DEBRIDEMENT; Surgeon: Mony Enriquez MD; [place] [facility]; Service: ? FLAP PECTORALIS ROTATIONAL Left 12/24/2016 Procedure: LEFT PECTORAL FLAP ADVACEMENT FOR CLOSURE ; Surgeon: Mony Enriquez MD; Location: [facility]; Service: ? FLAP ROTATIONAL HEAD/NECK N/A 03/11/2017 Procedure: FASCIAL FLAP ROTATIONAL ; Surgeon: Mony Enriquez MD; Location: [facility]; Service: ? GASTROSTOMY OPEN N/A 08/26/2016 Procedure: GASTROSTOMY TUBE PLACEMENT; Surgeon: Janes Raymundo MD; Location: [facility]; Service: ? HARDWARE REMOVAL HEAD/NECK N/A 05/12/2018 Procedure: MANDIBLE HARDWARE REMOVAL; Surgeon: Mony Enriquez MD; Location: [facility]; Service: Plastics ? HARDWARE REMOVAL KNEE Left 03/11/2017 Procedure: POSSIBLE PATELLA HARDWARE REMOVAL; Surgeon: Anuj Lugo MD; Location: [facility]; Service: ? HERNIA REPAIR age 7 umbilical ? INCISION AND DRAINAGE HEAD/NECK Left 05/28/2017 Procedure: LEFT JAW ABSCESS INCISION AND DRAINAGE, REMOVAL OF JAW SCREWS AND WIRES; Surgeon: Mony Enriquez MD; Location: [facility]; Service: Plastics ? INCISION AND DRAINAGE HEAD/NECK N/A 05/22/2018 Procedure: INCISION AND DRAINAGE JAW; Surgeon: Leon De Leon MD; Location: [facility]; Service: Plastics ? INCISION AND DRAINAGE LOWER EXTREMITY Left 03/11/2017 Procedure: LEFT KNEE WOUND INCISION AND DRAINAGE POSSIBLE EXTENSOR MECHANISM REPAIR ; Surgeon: Anuj Lugo MD; Location: [facility]; Service: ? ORIF MANDIBLE Bilateral 08/27/2016 Procedure: EXPLORATION OF MANDIBLE AND MIDFACE / POSSIBLE EX-FIX; Surgeon: Mony Enriquez MD; Location: [facility]; Service: ? ORIF MANDIBLE Left 11/03/2016 Procedure: MANDIBLE OPEN REDUCTION INTERNAL FIXATION ; Surgeon: Mony Enriquez MD; Location: [facility]; Service: ? ORIF MANDIBLE N/A 05/25/2017 Procedure: MANDIBLE OPEN REDUCTION INTERNAL FIXATION; Surgeon: Mony Enriquez MD; Location: [facility]; Service: Plastics ? ORIF MANDIBLE N/A 05/12/2018 Procedure: MANDIBLE OPEN REDUCTION INTERNAL FIXATION; Surgeon: Mony Enriquez MD; Location: [facility]; Service: Plastics ? ORIF PATELLA 08/27/2016 Procedure: OPEN REDUCTION INTERNAL FIXATION PATELLA WITH I & D; Surgeon: Anuj Lugo MD; Location: [facility]; Service: ? TRACHEOSTOMY N/A 08/26/2016 Procedure: TRACHEOSTOMY; Surgeon: Janes Raymundo MD; Location: [facility]; Service: ? TRAUMA CART LAPAROTOMY Left 08/26/2016 Procedure: EXPL LEFT NECK; Surgeon: Janes Raymundo MD; Location: [facility]; Service: For complete objective data, detailed plan of care, and education refer to: Speech Comm/COG flow sheets, Bedside Study Evaluation flow sheets, [facility] Navigator, as well as patient Plan of [...] Estimated Energy Needs Total Energy Estimated Needs: 3024-3338 Method for Estimating Needs: MSJ x 1-1.2 Total Protein Estimated Needs: 109g Method for Estimating Needs: 1.5g/kg/ibw [address], [facility] Beverley Jorgensen RN - 05/26/2018 10:33 [...] rounds, pt not medically ready for discharge. [facility] following for discharge needs. Kellie Grijalva CNP - 05/26/2018 8:57 AM EST PLASTIC SURGERY PROGRESS NOTE A: Honorio Prince is a 37yo male s/p repeat I&D of left mandible and external fixator applicationon 05/23/18. P: - Strip and record FLOYD - Edema to left jaw stable, neck enlargement is tissue flap - Bacitracin BID to let mandibular incision, BILLBOARD ERECTOR HELPER - Will have PT eval. Left leg [...] Vega CNP Plastic Reconstructive Surgery Service Pager ([phone]-[phone]): Brittney Bhatti PA-C - 05/26/2018 6:06 AM EST [place] [facility] SURGERY TRAUMA PROGRESS [...] Mandibular Abscess: PRS following, s/p surgeries as ocnfe-vd-wmc in place. Anaerobic cx from 05/22no growth; [...] and time: 05/21/2018 5:41 PM Med rec: [id number] Date of service: 05/26/18 Please link this note as an addendum to the Trauma Advanced Practice Provider note with the day of service listed above. The patient was seen and examined by me, the attending trauma surgeon, on multidisciplinary rounds on the date of service listed above. I have reviewed the Advanced Practice Provider note with the relevant labs, studies, and sales representative consultant notes. I have reviewed and agree with the documented history, exam, and plan of care. I have made necessary additions or changes to the note to reflect my direct input. Agree with the assessment and plan as described below. Arnel Cortez II, MD, MS, [facility] Trauma, Critical Care, & Acute Care Surgery [...] Mchugh PA-C - 05/25/2018 7:37 AM EST [facility] [facility] SURGERY TRAUMA ICU [...] fluids with diet. NUTRITION - DIET: NPO BUTCHER APPRENTICE eval pending GASTROINTESTINAL - Last Bowel Movement - TRACK INSPECTOR. Senna on. HEMATOLOGY - hgb 7.4 (8.6). [...] LOS: 3. extuabted 05/24. No issues. Awaiting BUTCHER APPRENTICE eval to start diet. Pain adequately controlled. [...] Strength, sensation, proprioception normal. No cerebellar signs. Franklin Coma Scale: EYES (4-spont, 3-to verb stim, [...] note with the relevant labs, studies, and sales representative consultant notes. 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 Physical Appearance: No s/s malnutrition noted [...] Estimated Energy Needs Total Energy Estimated Needs: 7663-4118 Method for Estimating Needs: MSJ x 1-1.2 Total Protein Estimated Needs: 109g Method for Estimating Needs: 1.5g/kg/ibw Anay Shoemaker RD, LD, [facility] [phone] [id number] Signed by Anay Shoemaker RD on 05/24/2018 2:58 PM EST Leann Zhang - 05/24/2018 12:02 PM EST 05/24/18 1000 Clinical Encounter Type Visit Type Non Crisis Non Crisis Visit Rounding Visited With Patient Visit Length (minutes) 1-15 Roman Catholic Encounters Roman Catholic Needs Prayer Patient lying in bed watching TV. No visitors present. Welcomes poacher wringer operator but declines spiritual needs at this time. Prayer and pastoral support offered. PC will follow as requested. Kellie Montgomery CNP - 05/24/2018 8:56 AM EST PLASTIC SURGERY PROGRESS NOTE A: Honorio Prince is a 37yo male s/p repeat I&D of left mandible and external fixator applicationon 05/23/18. P: - Ok to extubate per trauma team - Bacitracin BID to let mandibular incision, BILLBOARD ERECTOR HELPER - F/u cultures, growing GPC and GPB. [...] NEURO: . Strength, sensation, proprioception normal. No Franklin Coma Scale: EYES (4-spont, 3-to verb stim, [...] clean, dry, and intact and well approximated. [place] were removed at the bedside. Island dressing [...] Dupree MD - 05/23/2018 7:49 AM EST [facility] SURGERY TRAUMA ICU [...] Strength, sensation, proprioception normal. No cerebellar signs. Franklin Coma Scale: EYES (4-spont, 3-to verb stim, [...] a hereditary bleeding disorder, nor is a Spiritism. 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
--- OUTSIDE RECORDS SUMMARY | 2020-02-10 12:20 | XMS RPT_ITS | CCD ---
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 acetaminophen (TYLENOL) 05-31-2017 - Francisco Lima [facility] ([id number]) 325 MG tablet Take 3 06-10-2017 [place] (three) tablets (975 mg total) by mouth every 8 (eight) hours for 10 days. 90 tablet 0 05/31/2017 06/10/2017 acetaminophen (TYLENOL) 05-31-2017 - Francisco Lima [facility] ([id number]) 650 mg/20.3 mL Soln Take 05-31-2017 [place] 30.45 mL (975 mg total) by mouth every 8 (eight) hours. 2740.5 mL 0 05/31/2017 05/31/2017 Discontinued acetaminophen (TYLENOL) 05-25-2017 - [facility] ([id number]) solution 975 mg 975 mg, 05-31-2017 Oral, Every 8 hours, First dose on Tue05/25/17 at 2000 Given 05/30/2017 20:12 EST 975 mg acetaminophen / oxyCODONE-acetaminophen 03-14-2017 - Mony Zimmerman oxyCODONE (PERCOCET) 7.5-325 mg per 03-22-2017 [place] (4 [id number]) tablet Take 1 (one) tablet [place] to 2 (two) tablets by mouth every 4 (four) hours as needed for pain. 50 tablet 0 03/14/2017 03/22/2017 Discontinued oxyCODONE-acetaminophen 03-12-2017 - Ovi Pena [facility] ([id number]) (PERCOCET) 7.5-325 mg per tablet 03-14-2017 2 tablet 2 tablet, Oral, Every 4 hours PRN, moderate to severe pain, Starting 03/12/17 at 0815 Given 03/14/2017 04:39 EST 2 tablets oxyCODONE-acetaminophen 03-11-2017 - Luis Manuel Lee [facility] ([id number]) (PERCOCET) 5-325 mg per tablet 2 03-11-2017 [place] tablet 2 tablet, Oral, Once as needed, Pain, Starting 03/11/17 at 0916, For 1 dose, PACU (only), [] While in PACU when tolerating orals. [] Use oral route first, if tolerated. Given 03/11/2017 09:32 EST 2 tablets oxyCODONE-acetaminophen 02-22-2017 - Ashlie Chand [facility] ([id number]) (PERCOCET) 7.5-325 mg per tablet 03-14-2017 1 tablet 1 tablet, Oral, Every 6 hours PRN, moderate to severe pain, Starting 03/11/17 at 1105 Given 03/11/2017 13:37 EST 1 tablet oxyCODONE-acetaminophen 02-03-2017 - [facility] ([id number]) (PERCOCET) 5-325 mg per tablet 02-10-2017 Indications: Chronic osteomyelitis of facial bones (HCC) Take 1 (one) tablet by mouth every 6 (six) hours as needed for pain. 20 tablet 0 02/03/2017 02/10/2017 Active oxyCODONE-acetaminophen 01-04-2017 - [facility] ([id number]) (PERCOCET) 5-325 mg per tablet 01-14-2017 Indications: Chronic osteomyelitis of facial bones (HCC) Take 1 (one) tablet by mouth every 4 (four) hours as needed for pain. 28 tablet 0 01/04/2017 01/14/2017 Active oxyCODONE-acetaminophen 12-28-2016 - [facility] ([id number]) (PERCOCET) 5-325 mg per tablet 01-07-2017 Take 1 (one) tablet to 2 (two) tablets by mouth every 4 (four) hours as needed for pain. 65 tablet 0 12/28/2016 01/04/2017 Discontinued oxyCODONE-acetaminophen 12-21-2016 - [facility] ([id number]) (PERCOCET) 5-325 mg per tablet 2 12-28-2016 tablet 2 tablet, Oral, Every 4 hours PRN, moderate to severe pain, Starting Tu12/21/16 at 1544 Given 12/28/2016 04:10 EDT 2 tablets oxyCODONE-acetaminophen 12-07-2016 - [facility] ([id number]) (PERCOCET) 10-325 mg per tablet 12-28-2016 Take 1 (one) tablet to 2 (two) tablets by mouth every 4 (four) hours as needed for pain. 50 tablet 0 12/15/2016 12/25/2016 Suspended oxyCODONE-acetaminophen 12-01-2016 - Jorge Jamison [facility] ([id number]) (PERCOCET) 10-325 mg per tablet 12-01-2017 Indications: Open fracture of body of mandible with routine healing, unspecified laterality, subsequent encounter Take 1 (one) tablet by mouth every 4 (four) hours as needed for pain. 42 tablet 0 12/01/2016 12/08/2016 Discontinued oxyCODONE-acetaminophen 11-25-2016 - [facility] ([id number]) (PERCOCET) 5-325 mg per tablet 12-07-2016 Take 1 (one) tablet by mouth every 6 (six) hours as needed for pain Ran out 10 tablet 0 11/27/2016 12/07/2016 Suspended oxyCODONE-acetaminophen 11-22-2016 - Jose De Jesus White [facility] ([id number]) (PERCOCET) 5-325 mg per tablet 2 11-25-2016 tablet 2 tablet, Oral, Every 4 hours PRN, moderate to severe pain, Starting 11/22/16 at 1525 oxyCODONE-acetaminophen 11-11-2016 - Carolee Hunt [facility] ([id number]) (PERCOCET) 5-325 mg per tablet 11-25-2016 [place] Indications: 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 80 tablet 0 11/11/2016 11/25/2016 Discontinued adhesive bandage adhesive bandage 04-07-2017 - Mily Pollard [facility] ([place] 05-25-2017 ([id number]) DRESSING) 4 X 6 DRESSING) 4 X 6 Bndg Bndg Apply 1 Package topically 2 (two) times a day To the left mandible. 30 each 5 04/07/2017 05/25/2017 Discontinued adhesive bandage ([place] DRESSING) 04-07-2017 [facility] ([id number]) 4 X 6 Bndg Apply 1 Package topically 2 (two) times a day To the left mandible. 30 each 04/07/2017 Active adhesive bandage ([place] DRESSING) 04-07-2017 [facility] ([id number]) 4 X 6 Bndg Apply 1 Package topically 2 (two) times a day To the left mandible. 30 each 04/07/2017 Active adhesive bandage ([place] DRESSING) 04-07-2017 [facility] ([id number]) 4 X 6 Bndg Apply 1 Package topically 2 (two) times a day To the left mandible. 30 each 5 04/07/2017 Active adhesive bandage ([place] DRESS[place]) 04-07-2017 [facility] ([id number]) 4 X 6 Bndg Apply 1 Package topically 2 (two) times a day To the left mandible. 30 each 5 04/07/2017 Active adhesive bandage ([place] DRESSING) 04-07-2017 [facility] ([id number]) 4 X 6 Bndg Apply 1 Package topically 2 (two) times a day To the left mandible. 30 each 5 04/07/2017 Active adhesive bandage ([place] DRESSING) 04-07-2017 [facility] ([id number]) 4 X 6 Bndg Apply 1 Package topically 2 (two) times a day To the left mandible. 30 each 5 04/07/2017 Active adhesive bandage ([place] DRESSING) 04-07-2017 - 04-07-2017 [facility] ([id number]) 4 X 6 Bndg Apply 1 Package topically 2 (two) times a day To the left mandible. 30 each 04/07/2017 04/07/2017 Discontinued Albuterol 2 puff, Inhalation, Every 6 05-22-2018 - 05-27-2018 [facility] ([id number]) hours PRN, wheezing, Starting Tue05/22/18 at 0254 2 puff, Inhalation, Every 05-12-2018 - 06-05-2018 Jose De Jesus White [facility] ([id number]) 6 hours PRN, wheezing, Starting Tue05/12/18 at 1327 albuterol 90 mcg/actuation Jessenia Sahni [facility] ([id number]) inhaler Inhale 2 puffs every 6 (six) hours as needed for wheezing . Active Amoxicillin / amoxicillin-clavulanate 05-26-2018 - Tahira Moi [facility] Clavulanate (AUGMENTIN) 875-125 mg per 05-27-2018 [place] ( [id number]) tablet 1 tablet amoxicillin-clavulanate 05-26-2018 - Brittney Coles [facility] ([id number]) (AUGMENTIN) 875-125 mg per 07-21-2018 [place] tablet Take 1 (one) tablet by mouth 2 (two) times a day . 112 tablet 0 05/26/2018 07/21/2018 ampicillin-sulbactam ampicillin-sulbactam 05-24-2018 - Tahira Hayden [facility] (UNASYN) 3000 mg in (UNASYN) 3000 mg in 05-26-2018 ( [id number]) sodium chloride (NS) sodium chloride (NS) 0.9% 100 mL MBP 0.9% 100 mL MBP calcium chloride / lactated Ringers 05-26-2018 - Kim Avery [facility] ealt lactate / potassium infusion 05-27-2018 [place] ([id number]) chloride / sodium chloride lactated Ringers infusion 05-21-2018 - 05-24-2018 [facility] ([id number]) lactated Ringers infusion 05-12-2018 - 05-13-2018 [facility] ([id number]) lactated Ringers infusion 05-25-2017 - 05-31-2017 [facility] ([id number]) 25 mL/hr, Intravenous, Continuous, Starting Tue05/25/17 at 1045, KVO Restarted 05/26/2017 10:45 EST 25 mL/hr 25 mL/hr lactated Ringers infusion 03-11-2017 - 03-14-2017 Rob Brown ms [facility] ([id number]) 25 mL/hr, Intravenous, Continuous, Starting Tue03/11/17 at 0630 New Bag 03/11/2017 07:27 EST 25 mL/hr 25 mL/hr lactated Ringers infusion 12-22-2016 - 12-22-2016 [facility] ([id number]) 50 mL/hr, Intravenous, Continuous, Starting Tue12/22/16 at 1730, For 2 hours New Bag 12/22/2016 16:50 EDT 50 mL/hr 50 mL/hr lactated Ringers infusion 12-03-2016 - 12-08-2016 [facility] ([id number]) 25 mL/hr, Intravenous, Continuous, Starting Tue12/03/16 at 0730 New Bag 12/03/2016 07:31 EDT 25 mL/hr 25 mL/hr lactated Ringers infusion 11-22-2016 - 11-25-2016 [facility] ([id number]) 25 mL/hr, Intravenous, Continuous, Starting Tue11/22/16 at 1130, KVO ceFAZolin ceFAZolin (ANCEF) 12-03-2016 - Watson Lerma [facility] alth IVPB 2 g (premix) 12-05-2016 ([id number]) 2,000 mg, Intravenous, at 200 mL/hr, Daily, First dose on Tue12/03/16 at 1400, Indication: Other (specify) Rate/Dose Verify 12/04/2016 08:18 EDT 200 mL/hr cefTRIAXone cefTRIAXone 12-02-2016 - [facility] (ROCEPHIN) 2000 (ROCEPHIN) 2000 mg 12-03-2016 ([id number] ) mg in sodium in sodium chloride [...] mL/hr cefTRIAXone cefTRIAXone 11-25-2016 - Kim Carrion [facility] h (ROCEPHIN) 2000 (ROCEPHIN) 2000 mg 11-25-2016 ([id number] ) mg in sodium in sodium chloride [...] 2,000 cefTRIAXone 2,000 11-25-2016 - Jorge Swift [facility] mg in sodium mg in sodium 12-08-2016 ([id number]) chloride 0.9 % chloride 0.9 % 0.9 0.9 % 50 mL IVPB % 50 mL IVPB Infuse 2,000 (two thousand) mg into a venous catheter daily. 7 each 5 11/25/2016 12/08/2016 Discontinued cefTRIAXone 2,000 mg in 11-25-2016 - Jorge Jamison [facility] ([id number]) sodium chloride 0.9 % 0.9 12-08-2016 % 50 mL IVPB Infuse 2,000 (two thousand) mg into a venous catheter daily. 7 each 5 11/25/2016 12/08/2016 Discontinued cefTRIAXone 2,000 mg in 11-25-2016 - Sridhar [facility] ([id number]) sodium chloride 0.9 % 0.9 01-03-2017 [place] % 50 mL IVPB Infuse 2,000 (two thousand) mg into a venous catheter daily. 7 each 11/25/2016 01/03/2017 Suspended cefTRIAXone 2,000 mg in 11-25-2016 - Sridhar [facility] ([id number]) sodium chloride 0.9 % 0.9 01-03-2017 [place] % 50 mL IVPB Infuse 2,000 (two thousand) mg into a venous catheter daily. 7 each 11/25/2016 01/03/2017 Active chlorhexidine chlorhexidine 05-22-2018 - Carroll Dennys [facility] ([id number]) (PERIDEX) 0.12 % 05-26-2018 solution 15 mL chlorhexidine (PERIDEX) 05-25-2017 - Kellie [facility] ([id number]) 0.12 % solution 15 mL by 06-14-2017 Other route 4 (four) times a day for 14 days. 120 mL 1 05/31/2017 06/14/2017 chlorhexidine (PERIDEX) 03-18-2017 - Andre Cline [facility] ([id number]) 0.12 % solution 15 mL. 05-31-2017 03/18/2017 05/31/2017 Discontinued chlorhexidine (PERIDEX) 12-02-2016 - [facility] ([id number]) 0.12 % solution 15 mL 15 03-14-2017 mL, Swab, 2 times daily, First dose on [place] 12/02/16 at 1200 Given 12/07/2016 08:22 EDT 15 mL chlorhexidine (PERIDEX) 11-22-2016 - Jose De Jesus White [facility] ([id number]) 0.12 % solution 15 mL 15 11-25-2016 mL, Swab, 2 times daily, First dose on 11/22/16 at 2100 chlorhexidine (PERIDEX) 11-05-2016 [facility] ([id number][facility] 0.12 % solution Apply 15 11-19-2016 mL to the mouth or throat 2 (two) times a day for 14 days. 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 14 tablet 0 11/11/2016 11/18/2016 clindamycin clindamycin (CLEOCIN) 05-13-2018 - Jazmyne Ray [facility] ([id number]) 300 MG capsule Take 1 05-27-2018 (one) capsule (300 mg total) by mouth 3 (three) times a day for 5 days . 15 capsule 0 05/18/2018 05/27/2018 Discontinued clindamycin (CLEOCIN) 05-12-2018 - Melina Fried [facility] ([id number]) IVPB 600 mg (premix) 05-13-2018 clindamycin (CLEOCIN) 300 01-04-2017 - [facility] ([id number]) MG capsule Indications: 02-03-2017 Chronic osteomyelitis of facial bones (HCC) Take 1 (one) capsule (300 mg total) by mouth 3 (three) times a day. 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 30 capsule 0 11/11/2016 11/25/2016 Discontinued clindamycin (CLEOCIN) 300 Mily Latrice [facility] ([id number]) MG capsule Take 300 mg by mouth 3 (three) times a day. Suspended docusate / 1 tablet, Oral, 2 times 05-13-2018 - [facility] ([id number]) sennosides, alf daily, First dose on Tue05-28-2018 05/22/18 at 0900 Hold for loose stools Do Not Crush or Chew if administering orally due to bitter taste. May be crushed if given via tube. senna-docusate (SENNA-S) 05-12-2018 - [facility] ([id number]) 8.6-50 mg per tablet 1 05-13-2018 tablet senna-docusate (SENNA-S) 12-07-2016 - Erlinda Long [facility] ([id number]) 8.6-50 mg Take 1 (one) 12-28-2016 tablet by mouth 2 (two) times a day for 15 days. 30 tablet 0 12/07/2016 12/28/2016 Discontinued senna-docusate (SENNA-S) 12-02-2016 - [facility] ([id number]) 8.6-50 mg per tablet 1 12-08-2016 tablet 1 tablet, Oral, 2 times daily, First dose on [place] 12/02/16 at 1200, NOT for abdominal surgery patients. Hold for loose stools. Do Not Crush or Chew if administering orally due to bitter taste. May be crushed if given via tube. Given 12/07/2016 08:21 EDT 1 tablet doxycycline doxycycline hyclate 02-22-2017 - [facility] ([id number]) (VIBRA-TABS) 100 MG 03-14-2017 tablet Indications: Chronic osteomyelitis of facial bones (HCC) Take 1 (one) tablet (100 mg total) by mouth 2 (two) times a day. 14 tablet 0 02/22/2017 03/14/2017 Discontinued doxycycline hyclate (VIBRA-TABS) 100 MG tablet 02-03-2017 [facility] ([id number]) Indications: Chronic osteomyelitis of facial bones (HCC) Take 1 (one) tablet (100 mg total) by mouth 2 (two) times a day. 14 tablet 0 02/03/2017 Active enoxaparin enoxaparin 05-22-2018 - Peyton Andrea [facility] ([id number]) (LOVENOX) syringe 05-27-2018 [place] 30 mg 40 mg, Subcutaneous, 05-12-2018 - 05-13-2018 Jose De Jesus White [facility] ([id number]) Daily, First dose on Tue05/12/18 at 2000 Administer in abdomen unless otherwise directed by prescriber. Notify physician if patient refuses. enoxaparin (LOVENOX) 12-21-2016 - 12-28-2016 [facility] ([id number]) syringe 40 mg 40 mg, Subcutaneous, Daily, First dose on Tue12/21/16 at 2000, Administer in abdomen unless otherwise directed by prescriber. Notify physician if patient refuses. Given 12/25/2016 19:50 EDT 40 mg Abdominal Tissue enoxaparin (LOVENOX) 12-03-2016 - 12-08-2016 [facility] ([id number]) syringe 40 mg 40 mg, Subcutaneous, Daily, First dose on Tue12/03/16 at 1215, Administer in abdomen unless otherwise directed by prescriber. Notify physician if patient refuses. Given 12/06/2016 08:04 EDT 40 mg enoxaparin (LOVENOX) 11-22-2016 - 11-25-2016 Jose De Jesus White [facility] ([id number]) syringe 40 mg 40 mg, Subcutaneous, Daily, First dose on Tue11/22/16 at 1615, Administer in abdomen unless otherwise directed by prescriber. Notify physician if patient refuses. Famotidine famotidine (PEPCID) 05-26-2018 - Carroll Noyola [facility] ([id number]) tablet 40 mg 05-27-2018 famotidine (PEPCID) injection 05-23-2018 - 05-26-2018 Carroll Gold [facility] ([id number]) 20 mg 20 mg, Oral, Daily, First 05-13-2018 - 05-13-2018 Jose De Jesus White [facility] ([id number]) dose on 05/13/18 at 0900 fentaNYL fentaNYL 05-22-2018 - [place] [facility] (SUBLIMAZE) bolus (SUBLIMAZE) bolus 05-25-2018 ([id number]) from bag 50-100 from bag 50-100 mcg mcg fentaNYL fentaNYL 05-22-2018 - Debra Swanson [facility] (SUBLIMAZE) (SUBLIMAZE) 05-25-2018 [place] ([id number]) infusion 2,500 infusion 2,500 mcg/250 mL in NS mcg/250 mL in NS FLUoxetine 20 mg, Oral, 05-22-2018 - [facility] Daily, First dose 05-27-2018 ([id number]) on 05/22/18 at 0900 20 mg, Oral, Daily, First 05-13-2018 - 05-13-2018 Jose De Jesus White [facility] ([id number]) dose on 05/13/18 at 0900 FLUoxetine (PROZAC) 20 MG [facility] ([id number]) capsule Take 40 mg by mouth daily . 0 Active fluoxetine HCl (PROZAC 05-21-2018 Jazmyne Ray [facility] ([id number]) ORAL) Take by mouth daily with breakfast . 0 05/21/2018 Discontinued fluoxetine HCl (PROZAC Jessenia Sahni [facility] ([id number]) ORAL) Take by mouth daily with breakfast . 0 Active fluoxetine HCl (PROZAC Jessenia Bartholow [facility] ([id number]) ORAL) Take by mouth daily with breakfast . 0 Active fluoxetine HCl (PROZAC Jessenia Bartholow [facility] ([id number]) ORAL) Take by mouth daily with breakfast . Active Glucose / Sodium dextrose 5 % and 05-24-2018 - [facility] Chloride sodium chloride 0.45 05-25-2018 ([id number]) % infusion Glycopyrrolate glycopyrrolate 05-22-2018 - Juan Carlos Octavio [facility] (ROBINUL) injection 05-22-2018 ([id number]) 0.2 mg HYDROmorphone HYDROmorphone 05-25-2017 - Ana Harris [facility] (DILAUDID) injection 05-25-2017 ([id number]) 0.25 mg 0.25 mg, Intravenous, Every 5 min PRN, moderate to severe pain, Starting Tue05/25/17 at 1335, For 8 doses, PACU (only), [] Give if fentanyl not effective or not ordered. [] Do not give more than 2.0 mg total. Given 05/25/2017 14:15 EST 0.25 mg HYDROmorphone (DILAUDID) 03-11-2017 - Luis Manuel [facility] ([id number]) 1 mg/mL injection 0.5 mg 03-11-2017 0.5 mg, Intravenous, Every 10 min PRN, Pain, Starting 03/11/17 at 0916, For 6 doses, PACU (only), [] Give if fentanyl not effective or not ordered. [] Do not give more than 3 mg total. Given 03/11/2017 09:32 EST 0.5 mg HYDROmorphone (DILAUDID) 12-24-2016 - Yolanda Montana [facility] ([id number]) 1 mg/mL injection 0.25 mg 12-24-2016 0.25 mg, Intravenous, Every 5 min PRN, moderate to severe pain, max of 1.5mg, Starting Tue12/24/16 at 1203, For 6 doses, PACU (only) Given 12/24/2016 12:13 EDT 0.25 mg HYDROmorphone (DILAUDID) 12-22-2016 - Phil [facility] ([id number]) 1 mg/mL injection 0.5 mg 12-22-2016 0.5 mg, Intravenous, Every 10 min PRN, moderate to severe pain, Starting 12/22/16 at 1651, For 6 doses, PACU (only), [] Give if fentanyl not effective or not ordered. [] Do not give more than 3 mg total. Given 12/22/2016 17:42 EDT 0.5 mg HYDROmorphone (DILAUDID) 12-07-2016 - [facility] ([id number]) 1 mg/mL injection 0.5 mg 12-08-2016 0.5 mg, Intravenous, Every 4 hours PRN, moderate to severe pain, Starting Tu12/07/16 at 1015 Given 12/07/2016 14:44 EDT 0.5 mg HYDROmorphone (DILAUDID) 12-06-2016 - [facility] ([id number]) 1 mg/mL injection 0.75 mg 12-07-2016 0.75 mg, Intravenous, Every 3 hours PRN, moderate to severe pain, Starting Tue12/06/16 at 1044 Given 12/06/2016 23:22 EDT 0.75 mg HYDROmorphone (DILAUDID) 12-03-2016 - [facility] ([id number]) 1 mg/mL injection 1 mg 1 12-06-2016 mg, Intravenous, Every 2 hour PRN, moderate to severe pain, Starting Tue12/03/16 at 1121 Given 12/05/2016 20:53 EDT 1 mg HYDROmorphone (DILAUDID) 12-03-2016 - [facility] ([id number]) 1 mg/mL injection 0.5 mg 12-03-2016 0.5 mg, Intravenous, Every 10 min PRN, Pain, Starting Tue12/03/16 at 0946, For 6 doses, PACU (only), [] Give if fentanyl not effective or not ordered. [] Do not give more than 3 mg total. Given 12/03/2016 10:12 EDT 0.5 mg HYDROmorphone (DILAUDID) 11-22-2016 - [facility] ([id number]) 1 mg/mL injection 0.5 mg 11-22-2016 0.5 mg, Intravenous, Every 5 min PRN, moderate to severe pain, Starting Tue11/22/16 at 1400, For 6 doses, PACU (only), [] Give if fentanyl not effective or not ordered. [] Do not give more than 3 mg total. HYDROmorphone 0.25 mg, 05-12-2018 - Suzie Pabon [facility] (DILAUDID) 0.5 mg/mL Intravenous, Every 5 05-12-2018 [place] ([id number]) injection 0.25 mg min PRN, moderate to severe pain, Starting Tue05/12/18 at 1025, For 6 doses, PACU (only) [] Do not give more than 1.5 mg total. HYDROmorphone HYDROmorphone 05-24-2018 - [facility] (DILAUDID) 0.5 mg/mL (DILAUDID) 0.5 mg/mL 05-26-2018 ([id number]) injection 0.5 mg injection 0.5 mg HYDROmorphone (DILAUDID) 05-22-2018 - Yolanda Lopez [facility] ([id number]) 0.5 mg/mL injection 0.5 05-22-2018 mg HYDROmorphone (DILAUDID) 05-21-2018 - Julio Cesar Brewer [facility] ([id number]) 0.5 mg/mL injection 0.5 05-21-2018 Jorje mg HYDROmorphone (DILAUDID) 05-21-2018 - [facility] ([id number]) 0.5 mg/mL injection 0.5 05-21-2018 mg hypochlorite sodium hypochlorite 12-22-2016 - Quique Mccallum [facility] (DAKIN'S 12-24-2016 [place] ([id number]) (HALF-STRENGTH)) 0.25 % external solution Topical, 2 [...] tube. ibuprofen (ADVIL,MOTRIN) 03-18-2017 - Jazmyne Ray [facility] ([id number]) 600 MG tablet Take 600 mg 05-27-2018 by mouth every 8 (eight) hours as needed . 0 03/18/2017 05/27/2018 Discontinued ibuprofen (ADVIL,MOTRIN) 03-18-2017 Jessenia Sahni [facility] ([id number]) 600 MG tablet Take 600 mg by mouth every 6 (six) hours as needed . 0 03/18/2017 Active ibuprofen (ADVIL,MOTRIN) 03-11-2017 - [facility] ([id number]) tablet 600 mg 600 mg, Oral, 03-14-2017 Every 8 hours PRN, mild pain, Starting 03/11/17 at 1105, Give with Food Do Not Crush or Chew if administering orally due to bitter taste. May be crushed if given via tube. Given 03/11/2017 18:45 EST 600 mg ibuprofen (ADVIL,MOTRIN) 12-07-2016 - [facility] ([id number]) 600 MG tablet Take 1 (one) 01-11-2017 tablet (600 mg total) by mouth every 6 (six) hours for 14 days. 56 tablet 0 12/28/2016 01/11/2017 Active ibuprofen (ADVIL,MOTRIN) 12-06-2016 - Ovi Chuckdwaine [facility] ([id number]) tablet 600 mg 600 mg, Oral, 12-08-2016 Every 6 hours, First dose on Tue12/06/16 at 1200, Give with Food Do Not Crush or Chew if administering orally due to bitter taste. May be crushed if given via tube. Given 12/07/2016 23:41 EDT 600 mg ibuprofen (ADVIL,MOTRIN) 12-02-2016 - [facility] (36466) tablet 200 mg 200 mg, Oral, 12-06-2016 Every 6 hours PRN, fever 100.4 F or greater, headaches, mild pain, Starting Daphney 12/02/16 at 1111, Give with Food Do Not Crush or Chew if administering orally due to bitter taste. May be crushed if given via tube. Given 12/02/2016 13:19 EDT 200 mg ibuprofen (ADVIL,MOTRIN) 12-08-2016 Jorge Swift [facility] ([id number]) 200 MG tablet Take 200 mg by mouth every 6 (six) hours as needed for pain. 12/08/2016 Discontinued iopamidol iopamidol 11-10-2017 - Duyen Marie [facility] ( 58089) (ISOVUE-370) 76 % 11-10-2017 Ben injection 75 mL iopamidol (ISOVUE-370) 76 % 05-27-2017 - 05-27-2017July Pepper Ann rs [facility] ([id number]) injection 75 mL 75 mL, Intravenous, Once in imaging, contrast, Starting 05/27/17 at 0726, For 1 dose Contrast Administered 05/27/2017 08:56 EST 75 mL iopamidol (ISOVUE-370) 76 % 02-03-2017 - 02-03-2017 Jazmyne Oseguera in [facility] (52506) injection 75 mL 75 mL, Intravenous, Once in imaging, contrast, Starting Daphney 02/03/17 at 1120, For 1 dose Contrast Administered 02/03/2017 11:20 EDT 60 mL ketorolac ketorolac (TORADOL) 11-23-2016 - Ana Harris [facility] ([id number]) injection 30 mg 30 11-25-2016 mg, Intravenous, Every 6 hours, First dose on Tue11/23/16 at 1200, For 48 hours, Give with Food Labetalol 5 mg, Intravenous, 05-12-2018 - Suzie Rosario [facility] (84083) Every 5 min PRN, SBP 05-12-2018 greater than 160 or DBP greater than 90, Starting 05/12/18 at 1025, For 4 doses, PACU (only) [] Do not give more than 20 mg total. [] Hold for HR less than 50. lidocaine lidocaine (XYLOCAINE) 05-22-2018 - Ethan Cox [facility] (72186) 4 % (40 mg/mL) 05-22-2018 external solution lidocaine 1% (XYLOCAINE) 10 05-25-2017 - 05-25-2017 Christian Powell [facility] ([id number]) mg/mL (1 %) injection 0.2 mL 0.2 mL, Intradermal, Once, 05/25/17 at 1045, For 1 dose, Pre-Procedure, Around site prior to IV insertion. Given 05/25/2017 10:12 EST 0.2 mL lidocaine HCl (LIDOPIN) 3 % 05-27-2018 [facility] ([id number]) Crea Apply 1 application topically . 0 05/27/2018 Discontinued morphine 4 mg, Intravenous, 05-12-2018 - Jose De Jesus White [facility] (02573) Every 2 hour PRN, 05-13-2018 moderate to severe pain, Starting 05/12/18 at 1327 morphine 4 mg 4 mg, 05-28-2017 - Nishant Maradiaga [facility] (42148) Intravenous, Every 10 min 05-28-2017 PRN, Pain, Starting 05/28/17 at 0905, For 5 doses, PACU (only), [] Give if fentanyl not effective or not ordered. [] Do not give more than 20 mg total. Given 05/28/2017 09:12 EST 4 mg morphine 4 mg 4 mg, 03-11-2017 - [facility] ( 62871) Intravenous, Every 2 hour 03-14-2017 PRN, moderate to severe pain, Starting 03/11/17 at 1105 Given 03/11/2017 23:40 EST 4 mg morphine 2 mg 2 mg, 12-24-2016 - [facility] ( 42043) Intravenous, Every 2 hour 12-28-2016 PRN, moderate [...] mg, 11-22-2016 - Jose De Jesus Schulz [facility] ( 05840) Intravenous, Every 2 hour 11-25-2016 PRN, moderate to severe pain, Starting 7/31/17 at 1525 naloxone (NARCAN) naloxone (NARCAN) 05-22-2018 - Campos Pepper Cristina [facility] (61581) injection 0.1 mg injection 0.1 mg 05-27-2018 naloxone (NARCAN) injection 0.1 mg 05-12-2018 - 05-13-2018 [facility] (68711) Ondansetron ondansetron (ZOFRAN) 05-22-2018 - Sarah Esqueda [facility] ([id number]) injection 4 mg 05-27-2018 Ace 4 mg, Intravenous, Every 6 05-12-2018 - 05-13-2018 Jose De Jesus White [facility] (01673) hours PRN, nausea, vomiting, Starting Tue05/12/18 at 1327 Oxycodone Er 10 Mg oxyCODONE 12-21-2016 - [facility] h Tablet,Crush (OXYCONTIN) 12 hr 12-28-2016 ([id number])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 slJKLKYgXD6y4EHKN DU3xDGyrJtu4MI27L GZsZHJzbHQgXCcxY3 19XHBsYWluXGYxXGZ zMjBcbGFuZzEwMzNc aGljaFxmMVxkYmNoX HLsARjgQ4qnCdOrR3 AsVKCaXhEmeFJzD7s gIiBhbmQgZGVzaWdu YXRlZCAiXHBsYWluX LUiETNfCsXzlI7piA kdzOyigM1jBnSsVmH kKUmiIA3wGLLyY3tg rPDoNBRmLJJbO5xgK sHwoE0ggOklSFutLg FcZnMyMFxsdHJjaCA iXHBsYWluXGYyXGZz YePrUACaNADdj34zz SN9diLqNnJlUABlMP Z5YWWdTYV2FXCaFON mfHGebsShY2ExNECb iF3kUGKscSgykPHin zXiQUG5tCOpcZjaGq YmC99rhuBoTDQzkgN rwKloh4dfHvMaXAVm jaXgBYRmc7FmVyZbV SawLMJjt3NbRVnwKD N2Gn0swBXzAFAgb7U kK9Zow2TkOJtsjFhp QELqp24ve77eiQ3cM HBhclxwYXIgVlMvS0 unT614QRutROOlpMN aNVgfs3XrWFY6XC4x exD1wV7qROKmvnCbq x3kYCHgzSzrJcp4DR XxdWUrUX2pjIayRVp lhMWMj4KirPGbsRPw XSS1RmGlQ4feprMaz cj2MCKtxqViNXOgAK LtL01bsM4acLFgTO8 OJWBdVfE9BnewRRX7 Anion gap molar conc 19 10 - 20 mmol/L 9 [facility] (18289) Calcium mass conc 8.1 8.4 - mg/dL Low 05-24-2018 [facility] (18895) Chloride molar conc 109 98 - 108 mmol/L High 05-24-2018 [facility] (16529) Creatinine mass conc 1.74 0.5 - 1.3 mg/dL High 9 [facility] (56139) GFR/1.73 sq M The eGFR should 05-24-2018 [facility] predicted among be used for (4 6617) non-blacks MDRD vol monitoring renal rate/area (S/P/Bld) function only and not for medication dosing. GFR/1.73 sq 48 >=60 Low 05-24-2018 [facility] M.predicted CKD-EPI mL/min/1. (77828) vol rate/area 73 m2 (S/P/Bld) Glucose mass conc 74 65 - 99 mg/dL 05-24-2018 [facility] (09430) HCO3 molar conc 19 21 - 32 mmol/L Low 05-24-2018 [facility] (61358) Interpretation and Abnormal 05-24-2018 [facility] review of laboratory (65789) results Potassium molar conc 4.5 3.5 - 5.1 mmol/L 9 [facility] (97733) Sodium molar conc 142 135 - 145 mmol/L [facility]-24-2018 [facility] (17976[facility] Urea nitrogen mass 18 8 - 25 mg/dL 05-24-2018 [facility] conc (81444) Urea 10.3 OTH - OTH mg/mg 05-24-2018 [facility] h nitrogen/Creatinine (89692) mass ratio Vancomycin mass conc 22.2 mcg/mL 9 [facility] (97468) No established 05-24-2018 [facility] reference range. (43 215) No panel information on 2018-05-23 Vancomycin mass conc 34.4 mcg/mL 9 [facility] (86244) No established 05-23-2018 [facility] reference range. (43 215) Glucose mass conc 88 65 - 99 mg/dL 05-23-2018 [facility] (43329) Interpretation and Normal 05-23-2018 [facility] review of laboratory (67817) results Case Report Surgical Pathology Report Case: [id number] 05-23-2018 [facility] Authorizing Provider: eFlix De Leon MD Collected: 05/22/2018 10:00 AM ([id number]) Ordering Location: [facility] Received: 05/22/2018 10:30 AM Periop Pathologist: Luis Manuel Flores MD Specimen: Bone, Please Specify, left jaw bone Pathology report [id number] 2018 [facility] final diagnosis IzHmOWWgCXIdr7wh (88560) Narrative ZGVmbGFuZzEwMzNc ZnRuYmpcdWMxXGRl RvMfe7zne435tIKj f7qdIWNwFbN7zJWb FTYweACeY737THSw TRmnj8pgg9YeCVLz cSTxd1I6GTQPpojy eNs2wCtoJ05js9Y0 QajlM3myJSJyHBkf ZWVuMFxibHVlMCA7 KAAqKEG7KJwqexRw tbD9YVkbdIUbKoC7 IQw0d6klyJfmRBXf SPZ7v8iwOYkvucJb GK2hpq2xqAn9t3qm czEgRGVmYXVsdCBQ QKLkN2CyeMtxJy2i pHt9zHztVnapIHT3 Daj0QJ9ycj44mrk0 fVxwYXBlcncxMjI0 MFxwYXBlcmgxNTg0 MFxtYXJnbDcyMFxt YXJncjcyMFxtYXJn wSC0RVKmvANvP5Yl NDQwXGhlYWRlcnk3 QxLvQo4msIKqgBYf dj6hil65YCS7b9Bf kDqlZYQ9USH8AaFg Bd5ewAQzOSOuEG0r QhFeiSZeYMUhml44 gUeyKRfqzsVadP7s YmRiXGZldDRcYWVu TL4lsGOyZJScjW0l cmxjXHBnYnJkcmhl OBWesRkxcwWdIt4b fEpxZEA0IQibF5uv aT4fZrG6GUzdS7kj rX1xRPy9LZczrAM5 MTNwbD6mBA7nhmxu n9reGhIoXA0uavkz q5hiPvYnJE6kxhc3 l8skURC5ORngQPDs XsL9khO7JHRmrEHh NCQesVedFThoj900 GWN9KIzbWzmhDXcj XHBnbmNvbnRccGdu ZGVjXHBsYWluXHBs YWluXGYwXGZzMjBc nCmrfAbarV6bCgQw ZnMyMFxwbGFpblxm MVxmczIyXGxhbmcx MWUkCNcrP8eaFyMn XAVetJacDGlua3Nj XGYxXGNmMVxmczIy XGJccGFyIExlZnQg ygS6IGAfosPqXVCm RdGhXYRdUO36Gfsf YXJccGFyXGxpNzIw XHBsYWluXGYwXGZz ZdMcqMbrjZ5iLkTm RrXiQpbpWJ5xEHCj I3onsJPlMVMaSSIo X7usAzOllZ4emNkn MVxjZjFcZnMyMlxi NLLluIMnAS2xtSGy cEtkxLy3mWGzTTBg gzlkyZTnoKinhA4f ZjBcZnMyMFxwbGFp blxmMVxmczIyXGxh kvcqDOLgSLcgD3yq ZjFcZGJjaFxmMVxs m9ElDVMzHOFtJVqt czIyXGJccGFyXHBs YWluXGYxXGZzMTZc bGFuZzEwMzNcaGlj aFxmMVxkYmNoXGYx RUzeK6cqGbDyD9Wo BYTkYSPrFqDSX826 c4zkqFHcmnknIAun czIyXGxhbmcxMDMz AErxG5hmEnWeIODu tKvmDNjab9OsLKCf XGNmMVxmczIyXGJc cGFyXHBhclxwbGFp blxmMFxmczIwXHBh cn0= Pathology report d8aaxQLdKHTcuOJt 2018 [facility] gross observation TvClJPVvQYSsz7xf ([id number]) Narrative ZGVmbGFuZzEwMzNc ZnRuYmpcdWMxXGRl RrSwq2vwk898nCFt x7wpLTIvHmN0uJIv UVYybLXeP222XIRx CTlsdf6iLE7bROTk uGNgb5O0NHFQzmtd jYs8s6fhFrIgUeC3 kAHpJPqkR4khbrAw cYArDBObLSp8iT01 HNQhzN2csNUaFAnl cmVkMFxncmVlbjBc Zxk0LEFsG6ezACVe FSOnJ3KtKM5qXCDp Hpl6GET1ZNI3PVIl ZDIyMVxncmVlbjI0 OSbwnYDlXpF9IOy9 s6efrSfzSZPsRNL1 o7rrPQijuxRxKZ2m fu7mkWi7s0rcbbEl RGVmYXVsdCBQYXJh K1TtzDbkTr4unNj9 fXesYuxoVID5Cld3 GU4fjd66oel7vIce DLHucjanPzG2VPhi SXLzejfpOAk0MMnd YXJnbDcyMFxtYXJn cjcyMFxtYXJndDE0 XHTibIPfP6GkBGLt UXjsWBFxyql3ZxLd Hc2jwDVbeNKjyv4e gu67OCV4o0SupUyb BDR4WAU2LlKmLu9z kUXfYJIyHE1bTyAk zUMkSTDhcv35fJso MPjgbkUtqA0aIkZl XGZldDRcYWVuZGRv Z8rxFjLrbaMjA0mt F8RrAYNxMORbCRXm IhMcplSfj4Zpa6Ml fDInxOe3g2unQBYw MPKfnTwag4dkXNI6 TJBgP5M1cCCic8nx ZOlcKWIprXU4svxm RQwgBVEfyeB6iiaf GJejYGJqzLF9pcU7 CJFwoJTbA4OgrJ4n NDQwXGhlYWRlcnk3 RgIgWx0sbSSduHEt n0OsjIWuTHllL23v x932AHAcrzWpA4xc bGFpblxwbGFpblxm MFxmczIwXHFsXHBs YWluXGYwXGZzMjBc yQyowS3hQeLfLgWu HXowTZ8dSCWpP8mm uKBnFBDtDGNvQ5ii CwLrzB7hjVtwBQkb ZjFcZnMyMFxsdHJj aCBSZWNlaXZlZCBp kmSoq6GbRLtugdWz YWJlbGVkICJccGxh kS9vEnYhLbGzMQzh HD5mWIMbS6pkySZr VLImZEVvT5pkZuBm rM8wgYhiUTouJuMj ZpSoXGyzdq89YOX8 w3edfCZbYKqyKaxl tFEysrI1AUgSWIXB JVnBYyZsFY1dOZgH TktCRUdJTnwzODAw VVsnzTCXCZpFK6i6 IOWQXB8sGZmhWjr3 DA94VPWxRSBvlVAe SVekO376XKRbZFza XGYxXGZzMjBcbGFu ZzEwMzNcaGljaFxm MVxkYmNoXGYxXGxv L6xeTlYoW8RmOIQe MjBccHJvdGVjdCBU YNlml5XcTSGryUtv R9cceMZrfmbcAUxr czIwXGxhbmcxMDMz FBjvU8adErVoTMLi yJjpYPjif6EdBIPa XGNmMVxmczIwXHBy y2LrV5V3EDObDZpa d3rnCZWxCCagr5Ph GQnNAVRTAV2SWA4g eRY8LCoDW7IYWBes ODAwMXwwfERCTElO H0x9WCRZGQ8vXXmu Jnt8GN64CTAuJHGq nLVqNGstP633JVDk YWluXGYxXGZzMjBc bGFuZzEwMzNcaGlj aFxmMVxkYmNoXGYx JSnvB9ksFoRkL8Qk YKLqGcGzvZCgV9li IiBhbmQgZGVzaWdu YXRlZCAiXHBsYWlu XGYyXGZzMjAgbGVm bODbHMymjXwaiD9z VhKgEzWzDGdpPQ4h PVPwR3zlmHEqXPNn IXOsS3uoYsUdgW2p aFxmMVxjZjFcZnMy MFxsdHJjaCAiXHBs YWluXGYyXGZzMjAg EHkrILQylpDaN3An MGIfvsWiz48ku1Sk Hs3iFZmpPq6pVVzd WA65CCvyUT45UURa LiAgVGhlIHNwZWNp rGGgTNeaIIGeq9Hm dGVkLiAgQWxsIDIv II3eTBScZ5DxP1ef aWVkLlxwYXJccGFy WDlBDa8UGMetDXFq IFxwYXJccGFyIEdy a3LuMJM1GI5fgoL3 vV8eNFPaimYpcp6d JDFnqHjwZvg4MQAd hGJcCR5tmFcnXNzk gTGUd0IceDFmtSYj QOR5LdVaL1ltccSm wwz8GNPyeaKxMJAu CVZnD39ecF9jiZAg VN1ALRVmXzB5VACc cn0= Pathology report s6wmgEDwSEGqzPOt 2018 [facility] MrAqXQZyJEGdi3vo ( [id number]) observation ZGVmbGFuZzEwMzNc Narrative Other ZnRuYmpcdWMxXGRl stain WqPuk9scj775zFRr c4duGHWpEgD0sUQx QMCvsRZfR245IZIq QYbpn2pbk4ZaKUBw pXFtm9H6WAMIcrhf lBt1lDonZ38it2X7 OqhmD5pxKTBxKIOt Z5HtGA6mJAFeWkn8 ZZE5YWG5IOErZYVr A5FbHG2iKQBktOUq MRz3a2rbxMoyAFNg URB5n3oqNYcwgwWg SA2zuq2dcDm6s8gs czEgRGVmYXVsdCBQ MCDcG4LwkBvmGa7y aWg8vEcgOarzBBL2 Kng4AK6usn34jyp6 fVxwYXBlcncxMjI0 MFxwYXBlcmgxNTg0 QJaiBYDxpOR8EILu jFNmV4ZuFXEmRC9u evx5OEH8PYipVRHh OfM5WBNcqBBzRDMa fAjuODtmu837RME2 OyBeYJ6wX2Pnv1K1 zT2duRYqEMWvfHZc MeTvMZSzda9wlJSr REncp8JrBLH9dmB1 mCWkyEUsFKTyJX67 Dxqdq3KeXihdZTE2 YLIajfMus5Zot0ml VePhbrKxK0thB9Zw ZHJoZWFkXHBnYnJk bkMwl6Yye6JedDQq hNt1e8dlTWJyRJFl wSsib2xuBUS6PAWf R2G3dGFhm6shBPcw GVZfvDY6zbD2UDRk qVEbV8RjbI9xFWOi DR8losl8v0jeKIZ5 REdiFUOyFnA4ebX3 NDBcaGVhZGVyeTcy VTpev780SKN0JdMr GFCyx3KhX8RfpJkh P16lgIgsU59nCQKp xRdzoT1uiEieyN3b ZjBcZnMyNFxxbFxw bGFpblxmMVxmczIw XGxhbmcxMDMzXGhp L1dbUcQnSOUteEtz VMkgd6OqJWUiURCy HtBlNCaugb2eF83p aWMgZXhhbWluYXRp b34epDJzzIEaOw4w bWVkLlxwYXJ9 Erythrocyte 13.9 11.6 - 14.8 % 05-23-2018 [facility] ealth distribution width ( 83646) Entitic volume (RBC) Hematocrit Volume 26.5 41 - 53 % Low 05-23-2018 [facility] Fraction (Bld) (4321 5) Hemoglobin mass conc 8.6 13.5 - 17.5 g/dL Low 019 [facility] (Bld) (82566) Interpretation and Abnormal 05-23-2018 [facility] review of laboratory (78138) results MCH Entitic mass 28.9 26 - 34 pg 05-23-2018 [facility] (RBC) (94022) MCHC mass conc (RBC) 32.5 31 - 37 g/dL 9 [facility] (24975) MCV Entitic volume 88.9 80 - 100 fL 05-23-2018 [facility] (RBC) (14276) Nucleated RBC #/vol 0.00 OTH - OTH 10*3/uL 05-23-2018 [facility] (Bld) (61830) Nucleated RBC/100 0.0 % 05-23-2018 [facility] WBC Ratio (Bld) (432 15) Platelet mean volume 10.6 9 - 15.5 fL 9 [facility] Entitic volume (Bld) (26163) Platelets #/vol 419 OTH - OTH 10*3/uL High 05-23-2018 [facility] (Bld) (33456) RBC #/vol (Bld) 2.98 OTH - OTH 10*6/uL Low 05-23-2018 [facility] (60392) WBC #/vol (Bld) 8.47 OTH - OTH 10*3/uL 05-23-2018 [facility] (44384) Anion gap molar conc 17 10 - 20 mmol/L 9 [facility] (34237) Calcium mass conc 8.3 8.4 - 10.2 mg/dL Low 05-23-2018 [facility] (84877) Chloride molar conc 106 98 - 108 mmol/L 05-23-2018 [facility] (23984) Creatinine mass conc 1.65 0.5 - 1.3 mg/dL High 9 [facility] (13840) GFR/1.73 sq M The eGFR should 05-23-2018 [facility] predicted among be used for (4 7266) non-blacks MDRD vol monitoring renal rate/area (S/P/Bld) function only and not for medication dosing. GFR/1.73 sq 52 >=60 Low 05-23-2018 [facility] lth M.predicted CKD-EPI mL/min/1.73 (24103) vol rate/area m2 (S/P/Bld) Glucose mass conc 79 65 - 99 mg/dL 05-23-2018 [facility] (18227) HCO3 molar conc 20 21 - 32 mmol/L Low 05-23-2018 [facility] (91616) Interpretation and Abnormal 05-23-2018 [facility] review of laboratory (67917) results Potassium molar conc 4.4 3.5 - 5.1 mmol/L 9 [facility] (73240) Sodium molar conc 139 135 - 145 mmol/L 05-23-2018 [facility] (97090) Urea nitrogen mass 21 8 - 25 mg/dL 05-23-2018 [facility] conc (92358) Urea 12.7 OTH - OTH mg/mg 05-23-2018 [facility] h nitrogen/Creatinine (07826) mass ratio Base excess -1.6 OTH - OTH mmol/L 05-23-2018 [facility] Calculated molar (43 215) conc (Bld) Calcium.ionized mass 4.5 4.5 - 5.3 mg/dL 9 [facility] conc (78251) Carboxyhemoglobin/He 1.0 OTH - OTH 9 [facility] moglobin.total mass (37331) fraction (BldA) Comment: Reference Ranges: [facility] Non-smokers:<1.5% Smokers:1.5-5.0% Heavy Smokers:5.0-9.0% CO2 ppres (Bld) 37.7 OTH - OTH mm[Hg] 05-23-2018 [facility] (90783) Glucose mass conc 79 65 - 99 mg/dL 05-23-2018 [facility] (77640) HCO3 molar conc (Bld) 22.5 22 - 26 mmol/L 05-23-19 19 [facility] (08173) Hematocrit Volume 26.3 41 - 53 % Low 05-23-2018 [facility] Fraction (BldA) (432 15) Hemoglobin mass conc 8.5 13.5 - 18 g/dL Low 9 [facility] (Bld) (50512) Inhaled oxygen 30 %/L 05-23-2018 [facility] concentration (04114 ) Interpretation and Abnormal 05-23-2018 [facility] review of laboratory (37530) results Lactate molar conc 0.6 0.6 - 2 mmol/L 05-23-2018 [facility] (33265) Methemoglobin/Hemoglo 0.6 0 - 2 % 05-23-19 19 [facility] bin.total mass (4321 5) fraction (BldA) Oxygen ppres (Bld) 131 OTH - OTH mm[Hg] High 05-23-2018 [facility] (76371) Oxyhemoglobin/Hemoglo 97.1 94 - 98 % 05-23-19 19 [facility] bin.total mass (4321 5) fraction (BldA) PEEP Respiratory 5 [facility] pH (Bld) 7.39 OTH - OTH [pH] [facility] Potassium molar conc 3.7 3.5 - 5.1 mmol/L 9 [facility] (01409) SaO2% mass fraction 98.7 92 - 99 % 05-23-2018 [facility] (BldA) (36855) Sodium molar conc 134 135 - 145 mmol/L Low 05-23-2018 [facility] (98760) Tidal volume setting 430 9 [facility] Ventilator (30492) Type of Oxygen Ventilator 05-23-2018 [facility] saturation device (4 8365) ABO and Rh group Nom O Positive 05-23-19 [facility] (Bld) (15014) Blood group antibody Negative 9 [facility] screen Ql (06240) Specimen Expires 05/26/2018 23:59 2018 [facility] EST (63595) Anion gap molar conc 15 10 - 20 mmol/L 9 [facility] (66165) Calcium mass conc 8.3 8.4 - mg/dL Low 05-23-2018 [facility] 10.2 (51532) Chloride molar conc 102 98 - 108 mmol/L 05-23-2018 [facility] (03163) Creatinine mass conc 1.63 0.5 - 1.3 mg/dL High 9 [facility] (21463) GFR/1.73 sq M The eGFR should 05-23-2018 [facility] predicted among be used for (4 2544) non-blacks MDRD vol monitoring renal rate/area (S/P/Bld) function only and not for medication dosing. GFR/1.73 sq 52 >=60 Low 05-23-2018 [facility] M.predicted CKD-EPI mL/min/1. (58444) vol rate/area 73 m2 (S/P/Bld) Glucose mass conc 77 65 - 99 mg/dL 05-23-2018 [facility] (79793) HCO3 molar conc 21 21 - 32 mmol/L 05-23-2018 [facility] (64463) Interpretation and Abnormal 05-23-2018 [facility] review of laboratory (18165) results Potassium molar conc 4.1 3.5 - 5.1 mmol/L 9 [facility] (25338) Sodium molar conc 134 135 - 145 mmol/L Low 05-23-2018 [facility] (70401) Urea nitrogen mass 21 8 - 25 mg/dL 05-23-2018 [facility] conc (78632) Urea 12.9 OTH - OTH mg/mg 05-23-2018 [facility] h nitrogen/Creatinine (73427) mass ratio Glucose mass conc 83 65 - 99 mg/dL 05-23-2018 [facility] (20496) Interpretation and Normal 05-23-2018 [facility] review of laboratory (55188) results xr chest pa/ap on 2 XR CHEST PA/AP EXAMINATION: Normal 05-22-2018 [facility] SINGLE XRAY VIEW OF THE CHEST Center (52091) 05/22/2018 1:17 pm COMPARISON: Chest radiograph 03/11/2017. [...] SUPINE XRAY VIEW(S) OF THE ABDOMEN Center (59995) VIEW 05/22/2018 1:17 pm COMPARISON: [facility] 08/26/2016. [...] tube in the gastric body and 05-22-2018 [facility] (43155) side port in the gastric fundus. Non-specific bowel gas pattern without evidence of obstruction. Workstation ID: [id number] EXAMINATION: SINGLE SUPINE XRAY VIEW(S) OF THE 05-22-2018 [facility] (21293) ABDOMEN 05/22/2018 1:17 pm COMPARISON: [facility] 08/26/2016. HISTORY: ORDERING SYSTEM PROVIDED HISTORY: [...] 05/22/2018 3:51 PM EST EX AMINATION: 05-22-2018 [facility] (00426) SINGLE SUPINE XRAY VIEW(S) OF THE ABDOMEN 05/22/2018 1:17 pm COMPARISON: [facility] 08/26/2016. HISTORY: ORDERING SYSTEM PROVIDED HISTORY: [...] Endotracheal tube approximately 2 cm above 05-22-2018 [facility] (71377) the jerardo. 2. No acute process. Workstation ID: [id number] EXAMINATION: SINGLE XRAY VIEW OF THE CHEST 05-22-2018 [facility] (55818) 05/22/2018 1:17 pm COMPARISON: Chest radiograph 03/11/2017. [...] 05/22/2018 3:50 PM EST EX AMINATION: 05-22-2018 [facility] (08165) SINGLE XRAY VIEW OF THE CHEST 05/22/2018 [...] AM EST This order has been 05-22-2018 [facility] (00836) auto-finalized and does not contain a result. This order has been auto-finalized and does not contain a result. 05-22-2018 [facility] (58448) No panel information on 2018-05-21 Basophils #/vol (Bld) 0.05 OTH - OTH 10*3/uL 05-21-19 19 [facility] (25667) Basophils/100 WBC (Bld) 0.3 % 2018 [facility] (98971) Eosinophils #/vol (Bld) 0.08 OTH - OTH 10*3/uL 2018 [facility] (57550) Eosinophils/100 WBC (Bld) 0.5 % 04-26 [facility] (52956) Erythrocyte distribution 13.7 11.6 - 14.8 % [facility] (42617) width Entitic volume (RBC) Hematocrit Volume Fraction 33.6 41 - 53 % Low [facility] (81923) (Bld) Hemoglobin mass conc (Bld) 11.1 13.5 - 17.5 g/dL Low 0 05-21-2018 [facility] (06397) Immature granulocytes 0.13 OTH - OTH 10*3/uL 05-21-19 19 [facility] (02598) #/vol (Bld) Immature granulocytes/100 0.70 % 04-26 [facility] (69228) WBC (Bld) Comment: The IG parameter is the perc entage of metamyelocytes, myelocytes, and promyelocytes. Interpretation and Abnormal 05-21-2018 [facility] review of (95236) laboratory results Lymphocytes #/vol 2.13 OTH - OTH 10*3/ 05-21-2018 [facility] (Bld) uL (47522) Lymphocytes/100 12.1 % 05-21-2018 [facility] WBC (Bld) (14014) MCH Entitic mass 28.9 26 - 34 pg 05-21-2018 [facility] (RBC) (94282) MCHC mass conc 33.0 31 - 37 g/dL 05-21-2018 [facility] (RBC) (36530) MCV Entitic volume 87.5 80 - 100 fL 05-21-2018 [facility] (RBC) (08644) Monocytes #/vol 2.17 OTH - OTH 10*3/ High 05-21-2018 [facility] (Bld) uL (93036) Monocytes/100 WBC 12.4 % 05-21-2018 [facility] (Bld) (82741) Neutrophils #/vol 13.00 OTH - OTH 10*3/ High 05-21-2018 [facility] (Bld) uL (96325) Neutrophils/100 74.0 % 05-21-2018 [facility] WBC (Bld) (57279) Nucleated RBC 0.00 OT - [facility] 10*3/ 05-21-2018 [facility] eah #/vol (Bld) uL (54318) Nucleated RBC/100 0.0 % 05-21-2018 [facility] WBC Ratio (Bld) (432 15) Ovalocytes LM Ql Rare 05-21-2018 [facility] (Bld) (06662) Platelet mean 9.5 9 - 15.5 fL 05-21-2018 [facility] volume Entitic (4321 5) volume (Bld) Platelets #/vol 524 OT - OT 10*3/ High 05-21-2018 [facility] (Bld) uL (22320) Platelets LM Ql Increased Normal Abnormal 05-21-2018 [facility] (Bld) (61257) Polychromasia LM Rare 05-21-2018 [facility] Ql (Bld) (59261) RBC #/vol (Bld) 3.84 OT - [facility] 10*6/ Low 05-21-2018 [facility] uL (96046) WBC #/vol (Bld) 17.56 OT - [facility] 10*3/ High 05-21-2018 [facility] uL (66114) INR Coag RelTime 1.1 [facility] {INR} 05-21-2018 [facility] (PPP) (81003) Interpretation and Normal 05-21-2018 [facility] review of (43057) laboratory results Prothrombin time 14.1 [facility] - [facility] s 05-21-2018 [facility] (PT) Coag time (4321 5) (PPP) During the 05-21-2018 [facility] induction phase of ( 88818) oral anticoagulation, the INR may not reflect the anticoagulation status of the patient. Therapeutic ranges for INR's are: Most clinical situations: INR 2.0-3.0 Mechanical Prosthetic Valve: INR 2.5-3.5 Critical: INR >5.0 Anion gap molar 18 10 - 20 mmol/ 05-21-2018 [facility] conc L (71328) Calcium mass conc 9.3 8.4 - 10.2 mg/dL 05-21-2018 [facility] (53647) Chloride molar 98 98 - 108 mmol/ 05-21-2018 [facility] conc L (42329) Creatinine mass 0.74 0.5 - 1.3 mg/dL 05-21-2018 [facility] conc (57585) GFR/1.73 sq M The eGFR should be 019 [facility] predicted among used for monitoring (71180) non-blacks MDRD renal function only vol rate/area and not for (S/P/Bld) medication dosing. GFR/1.73 sq 116 >=60 05-21-2018 [facility] lth M.predicted mL/min/1.7 (47879) CKD-EPI vol 3 m2 rate/area (S/P/Bld) Glucose mass conc 98 65 - 99 mg/dL 05-21-2018 [facility] (87291) HCO3 molar conc 23 21 - 32 mmol/ 05-21-2018 [facility] (24173) Interpretation and Normal 05-21-2018 [facility] review of (95577) laboratory results Potassium molar 4.0 3.5 - 5.1 mmol/ 05-21-2018 [facility] conc L (51510) Sodium molar conc 135 135 - 145 mmol/ 05-21-2018 [facility] L (80454) Urea nitrogen mass 9 8 - 25 mg/dL 05-21-2018 [facility] conc (27229) Urea 12.2 OTH - OTH mg/mg 05-21-2018 [facility] h nitrogen/Creatinin ( 14739) e mass ratio xr fluoroscopy time on 2018-05-12 XR FLUOROSCOPY TIME This is an auto finalized re sult. Please refer to patient chart for Normal 05-12-2018 [facility] further information. Center (67069) further information. further information. Comment: Order Comment: Reason for ex am?:intra op Injury/Trauma or Illness?:Il lness/Other How long have you had these symptoms (acute/chronic)?:Unknown Type of Exam?:Unknown Additional signs and symptom s?:intra op Fluoro time in minutes:1.17 Fluoro dose in mGy?:10.66 xr femur left 2+ views (standard) on 2018-05-12 XR FEMUR LEFT 2+ EXAMINATION: Normal 05-12-2018 [facility] VIEWS (STANDARD) TWO XRAY VIEWS OF THE LEFT FEMUR Center ([id number]) 05/12/2018 10:47 am COMPARISON: 03/28/2018 HISTORY: ORDERING [...] on 2018-05-12 EXAMINATION: TWO XRAY 05-12-19 19 [facility] VIEWS OF THE LEFT FEMUR (59956) 05/12/2018 10:47 am COMPARISON: 03/28/2018 HISTORY: ORDERING [...] 05/12/2018 12:10 PM EST E XAMINATION: 05-12-2018 [facility] TWO XRAY VIEWS OF THE LEFT FEMUR ([id number]) 05/12/2018 10:47 am COMPARISON: 03/28/2018 HISTORY: ORDERING [...] ID: [id number] 1. No acute osseous 05-12-2018 [facility] abnormality of the left (23875) femur. 2. Postsurgical skin josé in place. Workstation ID: [id number] Erythrocyte 14.6 11.6 - % 05-12-2018 [facility] lt distribution width 14.8 ( 99514) Entitic volume (RBC) Hematocrit Volume 39.5 41 - 53 % Low 05-12-2018 [facility] Fraction (Bld) (4321 5) Hemoglobin mass 13.0 13.5 - g/dL Low 05-12-2018 [facility] conc (Bld) 17.5 (21441) Interpretation and Abnormal 05-12-2018 [facility] review of (45407) laboratory results MCH Entitic mass 29.7 26 - 34 pg 05-12-2018 [facility] (RBC) (41251) MCHC mass conc 32.9 31 - 37 g/dL 05-12-2018 [facility] (RBC) (22293) MCV Entitic volume 90.2 80 - fL 05-12-2018 [facility] (RBC) 100 (15737) Nucleated RBC 0.00 OTH - 10*3/u 05-12-2018 [facility] ealth #/vol (Bld) OTH L (65948) Nucleated RBC/100 0.0 % 05-12-2018 [facility] WBC Ratio (Bld) (432 15) Platelet mean 10.6 9 - fL 05-12-2018 [facility] ealth volume Entitic 15.5 (4321 5) volume (Bld) Platelets #/vol 243 OTH - 10*3/u 05-12-2018 [facility] (Bld) OTH L (47003) RBC #/vol (Bld) 4.38 OTH - 10*6/u Low 05-12-2018 [facility] OTH L (30059) WBC #/vol (Bld) 16.17 OTH - 10*3/u High 05-12-2018 [facility] OTH L (37554) Anion gap molar 18 10 - 20 mmol/L 05-12-2018 [facility] conc (44675) Chloride molar 103 98 - mmol/L 05-12-2018 [facility] conc 108 (23147) Creatinine mass 0.85 0.5 - mg/dL 05-12-2018 [facility] conc 1.3 (61741) GFR/1.73 sq M The eGFR should be used [facility] predicted among for monitoring renal (94332) non-blacks MDRD function only and not vol rate/area for medication dosing. (S/P/Bld) GFR/1.73 sq 110 >=60 05-12-2018 [facility] lth M.predicted mL/min/ (18987) CKD-EPI vol 1.73 m2 rate/area (S/P/Bld) Glucose mass conc 95 65 - 99 mg/dL 05-12-2018 [facility] (35219) HCO3 molar conc 25 21 - 32 mmol/L 05-12-2018 [facility] (62014) Interpretation and Normal 05-12-2018 [facility] review of (11187) laboratory results Potassium molar 5.1 3.5 - mmol/L 05-12-2018 [facility] conc 5.1 (69574) Sodium molar conc 141 135 - mmol/L 05-12-2018 [facility] 145 (74585) Urea nitrogen mass 15 8 - 25 mg/dL 05-12-2018 [facility] conc (72048) Urea 17.6 OTH - mg/mg 05-12-2018 [facility] h nitrogen/Creatinin OTH ( 29159) e mass ratio This is an auto 05-12-2018 [facility] finalized result. Please (61708) refer to patient chart for further information. No panel information on 2018-04-24 Anion gap 3 molar 15 10 - 20 mmol/L Invalid 04-24-2018 [facility] conc Interpretation Code Calcium mass conc 9.4 8.4 - mg/dL Invalid 04-24-2018 [facility] 10.2 Interpretation Code Chloride molar conc 104 98 - 108 mmol/L Invalid 04-24-2018 [facility] Interpretation Code Creatinine mass 0.78 0.5 - mg/dL Invalid 04-24-2018 [facility] conc 1.3 Interpretation Code GFR/1.73 sq M The eGFR should Invalid 04-24-2018 [facility] predicted among be used for Interpretation non-blacks MDRD vol monitoring Code rate/area (S/P/Bld) renal function only and not for medication dosing. GFR/1.73 sq 114 >=60 Invalid 04-24-2018 [facility] M.predicted CKD-EPI mL/min/1 Interpretation vol rate/area .73 m2 Code (S/P/Bld) Glucose mass conc 86 65 - 99 mg/dL Invalid 04-24-2018 [facility] Interpretation Code HCO3 molar conc 23 21 - 32 mmol/L Invalid 04-24-2018 [facility] Interpretation Code Interpretation and Normal Invalid 04-24-2018 [facility] review of Interpretation laboratory results Code Potassium molar 4.0 3.5 - mmol/L Invalid 04-24-2018 [facility] conc 5.1 Interpretation Code Sodium molar conc 138 135 - mmol/L Invalid 04-24-2018 [facility] 145 Interpretation Code Urea nitrogen mass 13 8 - 25 mg/dL Invalid 04-24-2018 [facility] conc Interpretation Code Urea 16.7 OTH - mg/mg Invalid 04-24-2018 [facility] nitrogen/Creatinine OTH Interpretation mass ratio Code Hematocrit Auto 42.8 41 - 53 % Invalid 04-24-2018 [facility] Volume Fraction Interpretation (Bld) Code Hemoglobin mass 14.1 13.5 - g/dL Invalid 04-24-2018 [facility] conc (Bld) 17.5 Interpretation Code Interpretation and Normal Invalid 04-24-2018 [facility] review of Interpretation laboratory results Code ct maxillofacial without contrast 3d on 2018-02-23 CT MAXILLOFACIAL EXAMINATION: Normal 02-23-2018 [facility] WITHOUT CONTRAST 3D CT OF THE FACE WITHOUT CONTRAST 02/23/2018 [place] (53140) TECHNIQUE: CT of the face was performed [...] as on the previous exam. Workstation ID: [id number] Dictated by: MONTEZ NAJERA on TueFeb 23, [...] 02-23-2018 [facility] SYNAPSE WITHOUT CONTRAST 02/23/2018 Code [facility] TECHNIQUE: CT of the [...] 02-23-2018 [facility] SYNAPSE mandibular angle fracture. Code [facility] Persistent fracture line with evidence of cortical bone formation along the fracture margins raises concern for nonunion. Chronic paranasal sinusitis as on the previous exam. Workstation ID: [id number] Interface, Rad In Ilana Invalid Interpret ation 02-23-2018 ILANA FELIPE Speechq - 02/23/2018 2:01 PM Code [facility] EDT EXAMINATION: CT OF [...] as on the previous exam. Workstation ID: [id number] xr knee left 2 views (standard) on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 mL/min/{1 Invalid 12-24-2016 [facility] mL/min/1.73 m2 .73_m2} Interpretation Code eGFR (non-black) The eGFR Invalid 12-24-2016 [facility] should be used Interpretation for monitoring Code renal function only and not for medication dosing. Interpretation and Normal Invalid 12-24-2016 [facility] review of Interpretation laboratory results Code vancomycin level, trough on 2016-12-23 Interpretation and Normal Invalid 12-23-2016 [facility] review of laboratory Interpretation Code results Vancomycin 11.2 mcg/mL 5.0 - ug/mL Invalid 12-23-2016 [facility] B 20.0 Interpretation Code type and screen on 2016-12-23 ABO+Rh group O Positive Invalid 12-23-2016 [facility] T RANSFUSION Interpretation Code SERVICES Blood group Negative Invalid 12-23-2016 [facility] TRA NSFUSION antibody Interpretation Code SERVICES presence Specimen Expires 12/26/2016 Invalid 12-23-2016 [facility] TRANSFUSION 23:59 EST Interpretation Code SERVICES sedimentation rate on 2016-12-23 Erythrocyte sedimentation rate 48 mm/hr 0 - 15 High 12-23-2016 [facility] prepare rbc: 2 units on 2016-12-23 Blood Type O Pos Invalid 12-23-2016 [facility] PEREZ SFUSION Interpretation Code SERVICES Blood Type Code 5100 1 Invalid 12-23-2016 [facility] TRANSFUSION Interpretation Code SERVICES Cross Match Compatible Invalid 12-23-2016 [facility] TR ANSFUSION Interpretation Code SERVICES Product Code [id number] Invalid 12-23-2016 [facility] TR ANSFUSION Interpretation Code SERVICES Product ID Red Blood Cells Invalid 12-23-2016 [facility] TRANSFUSION Interpretation Code SERVICES Status Info Released Invalid 12-23-2016 [facility] TRA NSFUSION Interpretation Code SERVICES Unit Number [id number] Invalid 12-23-2016 [facility] TRANSFUSION Interpretation Code SERVICES Unit Number [id number] Invalid 12-23-2016 [facility] TRANSFUSION Interpretation Code SERVICES crp, inflammation o n 2016-12-23 C reactive protein (CRP) 16.6 0 - 10 mg/L High 12-23 [facility] chem 7 on 2016-11-25 1 Anion gap 14 10 - 20 mmol/L Invalid 12-23-2016 [facility] Interpretation Code Bicarbonate (HCO3) 27 21 - 32 mmol/L Invalid 12-23-2016 [facility] Interpretation Code BUN/Creatinine 13.3 10.0 - 1 Invalid 12-23-2016 [facility] Ratio 20.0 Interpretation Code Chloride 105 98 - mmol/L Invalid 12-23-2016 [facility] 108 Interpretation Code Creatinine 0.60 0.5 - mg/dL Invalid 12-23-2016 [facility] 1.3 Interpretation Code eGFR (non-black) 128 >=60 mL/min/{1. Invalid 12-23-2016 [facility] mL/min/1.73 m2 73_m2} Interpretation Code eGFR (non-black) The eGFR Invalid 12-23-2016 [facility] should be used Interpretation for monitoring Code renal function only and not for medication dosing. Glucose 128 65 - 99 mg/dL High 12-23-2016 [facility] Interpretation and Abnormal Invalid 12-23-2016 [facility] review of Interpretation laboratory results Code Potassium 3.7 3.5 - mmol/L Invalid 12-23-2016 [facility] 5.1 Interpretation Code Sodium 142 135 - mmol/L Invalid 12-23-2016 [facility] 145 Interpretation Code Urea nitrogen 8 8 - 25 mg/dL Invalid 12-23-2016 [facility] AB Interpretation Code cbc on 2016-12-23 Erythrocytes (RBC) 0.00 K/mcL 0.00 - 0.00 Invalid 12-24-19 17 [facility] Interpretation Code Erythrocytes (RBC) 3.01 M/mcL 4.50 - 5.90 Low 12-24-19 17 [facility] Hematocrit (HCT) 24.1 41 - 53 % Low 12-23-2016 [facility] Hemoglobin (HGB) 7.6 13.5 - 17.5 g/dL Low 12-23-2016 [facility] MCH 25.2 26 - 34 pg Low 12-23-2016 [facility] MCHC 31.5 31 - 37 g/dL Invalid 12-23-2016 [facility] Interpretation Code MCV 80.1 80 - 100 fL Invalid 12-23-2016 [facility] Interpretation Code Nucleated 0.0 % Invalid 12-23-2016 [facility] erythrocytes/100 Interpretation Code erythrocytes Platelet mean 10.3 9 - 15.5 fL Invalid 12-23-2016 [facility] AB volume (PMV) Interpretation Code Platelets 278 K/mcL 150 - 400 Invalid 12-23-2016 [facility] Interpretation Code RDW-CA 16.0 11.6 - 14.8 % High 12-23-2016 [facility] WBC (Leukocytes) 3.72 K/mcL 4.50 - Low 12-23-2016 [facility] 11.00 xr chest 1 view on 2016-12-22 PICC line in adequate Invalid Interpreta tion 12-22-2016 FUJI SYNAPSE position with the tip in [facility] the SVC/right atrial junction. [facility] Workstation ID: [id number] Interface, Rad In [employer] Invalid Interpret ation 12-22-2016 FUJI SYNAPSE Speechq - 12/22/2016 1:28 [facility] PM EDT EXAMINATION: SINGLE VIEW OF THE [...] tip in the SVC/right atrial junction. [facility] Workstation ID: [id number] EXAMINATION: SINGLE VIEW Invalid Interpr etation 12-22-2016 FUJI SYNAPSE OF THE CHEST 12/22/2016 [facility] 8:56 AM COMPARISON: 12/02/2016. HISTORY: ORDERING SYSTEM [...] Polymicrobic mixture of Invalid Interpre tation 12-22-2016 [facility] aerobic and anaerobic Code [place] organisms with no [facility] organism predominant. No Staphylococcus aureus. No Beta Streptococcus Group A. No Beta Streptococcus Group B. No Pseudomonas aeruginosa. No Clostridium perfringens. No Clostridium septicum. No Bacteroides fragilis. Contact Microbiology within 48 hours if further workup is clinically indicated. wound aerobic culture on 2016-12-22 Culture Polymicrobic Invalid 12-22-2016 [facility] mixture of aerobic Interpretation Code [place] organisms with no [facility] organism predominant. No Staphylococcus aureus. No Beta Streptococcus Group A. No Beta Streptococcus Group B No Pseudomonas aeruginosa. Contact Microbiology within 48 hours if further workup is clinically indicated. INR in blood by Moderate WBC Invalid 12-22-2016 [facility] coagulation Interpretation Code [facility] L AB INR in blood by Few Gram Positive {INR} Invalid 2016 [facility] coagulation Cocci Interpretation Code [facility] L AB INR in blood by Moderate RBC Invalid 12-22-2016 [facility] coagulation Interpretation Code [facility] L AB Gram Stain Invalid 12-22-2016 [facility] E performed at [place] Interpretation [facility] Laboratory chem 7 on 2016-11-25 0 Anion gap 15 10 - 20 mmol/L Invalid 12-22-2016 [facility] Interpretation Code Bicarbonate (HCO3) 24 21 - 32 mmol/L Invalid 12-22-2016 [facility] Interpretation Code BUN/Creatinine 22.6 10.0 - 1 High 12-22-2016 [facility] Ratio 20.0 Chloride 110 98 - mmol/L High 12-22-2016 [facility] 108 Creatinine 0.53 0.5 - mg/dL Invalid 12-22-2016 [facility] 1.3 Interpretation Code eGFR (non-black) 134 >=60 mL/min/{1. Invalid 12-22-2016 [facility] mL/min/1.73 m2 73_m2} Interpretation Code eGFR (non-black) The eGFR Invalid 12-22-2016 [facility] should be used Interpretation for monitoring Code renal function only and not for medication dosing. Glucose 97 65 - 99 mg/dL Invalid 12-22-2016 [facility] Interpretation Code Interpretation and Abnormal Invalid 12-22-2016 [facility] review of Interpretation laboratory results Code Potassium 3.8 3.5 - mmol/L Invalid 12-22-2016 [facility] 5.1 Interpretation Code Sodium 145 135 - mmol/L Invalid 12-22-2016 [facility] 145 Interpretation Code Urea nitrogen 12 8 - 25 mg/dL Invalid 12-22-2016 [facility] AB Interpretation Code vancomycin level, random on 2016-12-21 INR in blood by 6.0 mcg/mL Invalid Interpretation 12-21-2016 [facility] coagulation Code No established Invalid Interpretation [facility] reference range. Code protein,total on 09-12-28 Protein 6.8 6 - 8 g/dL Invalid Interpretation Code [facility] prealbumin on 12-21 Prealbumin 26.0 20 - 40 mg/dL Invalid Interpretation Code 0 12-21-2016 [facility] cbc on 2016-12-21 Erythrocytes (RBC) 3.46 M/mcL 4.50 - Low 12-21-2016 [facility] 5.90 Erythrocytes (RBC) 0.00 K/mcL 0.00 - Invalid 12-21-2016 [facility] 0.00 Interpretation Code Hematocrit (HCT) 27.2 41 - 53 % Low 12-21-2016 [facility] Hemoglobin (HGB) 8.7 13.5 - g/dL Low 12-21-2016 [facility] 17.5 Interpretation and Abnormal Invalid 12-21-2016 [facility] review of laboratory Interpretation Code results MCH 25.1 26 - 34 pg Low 12-21-2016 [facility] MCHC 32.0 31 - 37 g/dL Invalid 12-21-2016 [facility] Interpretation Code MCV 78.6 80 - 100 fL Low 12-21-2016 [facility] Nucleated 0.0 % Invalid 12-21-2016 [facility] erythrocytes/100 Interpretation Code erythrocytes Platelet mean volume 10.5 9 - 15.5 fL Invalid 7 [facility] (PMV) Interpretation Code Platelets 388 K/mcL 150 - 400 Invalid 12-21-2016 [facility] Interpretation Code RDW-CA 16.2 11.6 - % High 12-21-2016 [facility] 14.8 WBC (Leukocytes) 11.69 K/mcL 4.50 - High 12-21-2016 [facility] 11.00 albumin on Albumin 3.9 3.2 - 5.2 g/dL Invalid Interpretation 017 [facility] Code Interpretation and Normal Invalid Interpretatio n 12-21-2016 [facility] review of laboratory Code results vancomycin level, trough on 2016-12-08 Interpretation and Normal Invalid 12-08-2016 [facility] review of laboratory Interpretation Code results Vancomycin 9.4 mcg/mL 5.0 - ug/mL Invalid 12-08-2016 [facility] 20.0 Interpretation Code hemoglobin and hematocrit on 2016-12-08 Hematocrit (HCT) 22.7 41 - 53 % Low 12-08-2016 [facility] Hemoglobin (HGB) 7.2 13.5 - g/dL Low 12-08-2016 [facility] 17.5 Interpretation and Abnormal Invalid 12-08-2016 [facility] review of laboratory Interpretation Code results chem 7 on 2016-11-23 6 Anion gap 14 10 - 20 mmol/L Invalid 12-08-2016 [facility] Interpretation Code Bicarbonate (HCO3) 28 21 - 32 mmol/L Invalid 12-08-2016 [facility] Interpretation Code BUN/Creatinine 17.0 10.0 - 1 Invalid 12-08-2016 [facility] Ratio 20.0 Interpretation Code Chloride 104 98 - mmol/L Invalid 12-08-2016 [facility] 108 Interpretation Code Creatinine 0.53 0.5 - mg/dL Invalid 12-08-2016 [facility] 1.3 Interpretation Code eGFR (non-black) 134 >=60 mL/min/{1. Invalid 12-08-2016 [facility] mL/min/1.73 m2 73_m2} Interpretation Code eGFR (non-black) The eGFR Invalid 12-08-2016 [facility] should be used Interpretation for monitoring Code renal function only and not for medication dosing. Glucose 87 65 - 99 mg/dL Invalid 12-08-2016 [facility] Interpretation Code Interpretation and Normal Invalid 12-08-2016 [facility] review of Interpretation laboratory results Code Potassium 4.3 3.5 - mmol/L Invalid 12-08-2016 [facility] 5.1 Interpretation Code Sodium 142 135 - mmol/L Invalid 12-08-2016 [facility] 145 Interpretation Code Urea nitrogen 9 8 - 25 mg/dL Invalid 12-08-2016 [facility] AB Interpretation Code cbc on 2016-12-08 Erythrocytes (RBC) 0.00 K/mcL 0.00 - Invalid 12-08-2016 [facility] 0.00 Interpretation Code Erythrocytes (RBC) 2.44 M/mcL 4.50 - Low 12-08-2016 [facility] 5.90 Hematocrit (HCT) 20.1 41 - 53 % Low 12-08-2016 [facility] Hemoglobin (HGB) 6.4 13.5 - g/dL Critically low 12-09-19 17 [facility] 17.5 Interpretation and Abnormal Invalid 12-08-2016 [facility] review of laboratory Interpretation Code results MCH 26.2 26 - 34 pg Invalid 12-08-2016 [facility] Interpretation Code MCHC 31.8 31 - 37 g/dL Invalid 12-08-2016 [facility] Interpretation Code MCV 82.4 80 - 100 fL Invalid 12-08-2016 [facility] Interpretation Code Nucleated 0.0 % Invalid 12-08-2016 [facility] erythrocytes/100 Interpretation Code erythrocytes Platelet mean volume 10.1 9 - 15.5 fL Invalid 7 [facility] (PMV) Interpretation Code Platelets 221 K/mcL 150 - 400 Invalid 12-08-2016 [facility] Interpretation Code RDW-CA 16.2 11.6 - % High 12-08-2016 [facility] 14.8 WBC (Leukocytes) 5.71 K/mcL 4.50 - Invalid 12-08-2016 [facility] 11.00 Interpretation Code creatinine, serum o n 2016-12-07 Creatinine 0.59 0.5 - mg/dL Invalid 12-07-2016 [facility] 1.3 Interpretation Code eGFR (non-black) 128 >=60 mL/min/{1 Invalid 12-07-2016 [facility] mL/min/1.73 m2 .73_m2} Interpretation Code eGFR (non-black) The eGFR Invalid 12-07-2016 [facility] should be used Interpretation for monitoring Code renal function only and not for medication dosing. Interpretation and Normal Invalid 12-07-2016 [facility] review of Interpretation laboratory results Code vancomycin level, random on 2016-12-06 INR in blood by 6.1 mcg/mL Invalid Interpretation 12-06-2016 [facility] coagulation Code No established Invalid Interpretation [facility] reference range. Code phosphorus on 12-06 Interpretation and Normal Invalid Interpretatio n 12-06-2016 [facility] review of laboratory Code results Phosphate 3.8 2.7 - mg/dL Invalid Interpretation 017 [facility] 4.5 Code magnesium level on 2016-12-06 Magnesium 1.7 1.6 - 2.4 mg/dL Invalid Interpretation Code [facility] cbc auto differential on 2016-12-06 Basophils 0.03 K/mcL 0.00 - Invalid 12-06-2016 [facility] 0.30 Interpretation Code Basophils/100 0.4 % Invalid 12-06-2016 [facility] AB leukocytes Interpretation Code Eosinophils 0.18 K/mcL 0.00 - Invalid 12-06-2016 [facility] B 0.50 Interpretation Code Eosinophils/100 2.6 % Invalid 12-06-2016 [facility] leukocytes Interpretation Code Erythrocytes (RBC) 0.00 K/mcL 0.00 - Invalid 12-06-2016 [facility] 0.00 Interpretation Code Erythrocytes (RBC) 2.91 M/mcL 4.50 - Low 12-06-2016 [facility] 5.90 Hematocrit (HCT) 24.2 41 - 53 % Low 12-06-2016 [facility] Hemoglobin (HGB) 7.6 13.5 - g/dL Low 12-06-2016 [facility] 17.5 IG Absolute 0.02 K/mcL 0.00 - Invalid 12-06-2016 [facility] B 0.30 Interpretation Code IG Percent 0.30 % Invalid 12-06-2016 [facility] Interpretation Code Interpretation and Abnormal Invalid 12-06-2016 [facility] review of laboratory Interpretation Code results Lymphocytes 1.77 K/mcL 0.90 - Invalid 12-06-2016 [facility] 4.00 Interpretation Code Lymphocytes/100 25.3 % Invalid 12-06-2016 [facility] leukocytes Interpretation Code MCH 26.1 26 - 34 pg Invalid 12-06-2016 [facility] Interpretation Code MCHC 31.4 31 - 37 g/dL Invalid 12-06-2016 [facility] Interpretation Code MCV 83.2 80 - 100 fL Invalid 12-06-2016 [facility] Interpretation Code Monocytes 0.78 K/mcL 0.30 - Invalid 12-06-2016 [facility] 0.90 Interpretation Code Monocytes/100 11.1 % Invalid 12-06-2016 [facility] AB leukocytes Interpretation Code Neutrophils 4.22 K/mcL 1.70 - Invalid 12-06-2016 [facility] B 7.00 Interpretation Code Neutrophils/100 60.3 % Invalid 12-06-2016 [facility] leukocytes Interpretation Code Nucleated 0.0 % Invalid 12-06-2016 [facility] erythrocytes/100 Interpretation Code erythrocytes Platelet mean volume 10.5 9 - 15.5 fL Invalid 7 [facility] (PMV) Interpretation Code Platelets 249 K/mcL 150 - 400 Invalid 12-06-2016 [facility] Interpretation Code RDW-CA 15.9 11.6 - % High 12-06-2016 [facility] 14.8 WBC (Leukocytes) 7.00 K/mcL 4.50 - Invalid 12-06-2016 [facility] 11.00 Interpretation Code cbc and differential on 2016-12-06 Creatinine The following orders were Invalid [facility] for panel order CBC Interpretati on (64418) and Differential. Procedure Code Abnormality Status --------- ------ CBC Auto Differential[[id number]] Abnormal Final result CBC and Diff Morphology[[id number]] Final result Please view results for these tests on the individual orders. cbc and diff morphology on 2016-12-06 Anisocytosis presence 1+ Invalid Interpreta tion Code 12-06-2016 [facility] Platelets presence Normal Normal Invalid Interpretatio n Code 12-06-2016 [facility] basic metabolic panel on 2016-12-06 Anion gap 16 10 - 20 mmol/L Invalid 12-06-2016 [facility] Interpretation Code Bicarbonate 29 21 - 32 mmol/L Invalid 12-06-2016 [facility] (HCO3) Interpretation Code BUN/Creatinine 18.6 10.0 - 1 Invalid 12-06-2016 [facility] Ratio 20.0 Interpretation Code Calcium 8.9 8.4 - mg/dL Invalid 12-06-2016 [facility] 10.2 Interpretation Code Chloride 99 98 - 108 mmol/L Invalid 12-06-2016 [facility] Interpretation Code Creatinine 0.59 0.5 - mg/dL Invalid 12-06-2016 [facility] 1.3 Interpretation Code eGFR (non-black) The eGFR should Invalid 017 [facility] be used for Interpretation monitoring Code renal function only and not for medication dosing. eGFR (non-black) 128 mL/min/1.73 >=60 mL/min/{1. Invalid 2016 [facility] m2 73_m2} Interpretation Code Glucose 98 65 - 99 mg/dL Invalid 12-06-2016 [facility] Interpretation Code Potassium 4.4 3.5 - mmol/L Invalid 12-06-2016 [facility] 5.1 Interpretation Code Sodium 140 135 - mmol/L Invalid 12-06-2016 [facility] 145 Interpretation Code Urea nitrogen 11 8 - 25 mg/dL Invalid 12-06-2016 [facility] AB Interpretation Code wound aerobic culture on 2016-12-03 Culture Few Growth (4-10 Abnormal 12-03-2016 [facility] colonies per plate) [facility] Fadia albicans [facility] Culture Few Growth (4-10 Abnormal 12-03-2016 [facility] colonies per plate) [facility] Coagulase Negative [facility] Staphylococcus INR in blood by Many WBC Invalid 12-03-2016 [facility] coagulation Interpretation Code [facility] AB INR in blood by Many RBC Invalid 12-03-2016 [facility] coagulation Interpretation Code [facility] L AB INR in blood by No Epithelial Cells Invalid 11-23 [facility] coagulation Seen Interpretation Code [facility] L AB INR in blood by No Organisms Seen Invalid 2016 [facility] coagulation Interpretation Code [facility] AB Interpretation and Abnormal Invalid 12-03-2016 [facility] review of Interpretation Code [facility] laboratory results [facility] Gram Stain Invalid 12-03-2016 [facility] performed at [place] Interpretation [facility] Laboratory xr chest 1 view on 2016-12-02 PICC line is in a Invalid Interpretation 12-02-2016 X[facility] satisfactory position. Code [facility] There appears to be a very minimal right apical pneumothorax. Workstation ID: [id number] Interface, Rad In Fuji Invalid Interpret ation 12-02-2016 [facility] [employer] Speechq - 12/02/2016 1:28 [facility] PM EDT EXAMINATION: SINGLE VIEW OF THE [...] very minimal right apical pneumothorax. Workstation ID: [id number] EXAMINATION: SINGLE VIEW Invalid Interpr etation 12-02-2016 [facility] [employer] OF THE CHEST 12/02/2016 [facility] 12:00 pm COMPARISON: 10/15/2016 HISTORY: ORDERING SYSTEM [...] ABO+Rh group O Positive Invalid 12-02-2016 [facility] RANSFUSION Interpretation Code SERVICES Blood group Negative Invalid 12-02-2016 [facility] TRA NSFUSION antibody Interpretation Code SERVICES presence Specimen Expires 12/05/2016 Invalid 12-02-2016 [facility] TRANSFUSION 23:59 EST Interpretation Code SERVICES pt/inr on 2016-11-23 0 Coagulation factor 1.0 0.8 - 1 Invalid 12-02-2016 [facility] induced.INR assay 1.1 Interpretation in platelet poor Code plasma Coagulation tissue 13.2 seconds 11.8 - Invalid 12-03-19 17 [facility] factor induced in 14.3 Interpretation platelet poor Code plasma INR in blood by During the induction Invalid [facility] coagulation phase of oral Interpretation anticoagulation, the Code INR may not reflect the anticoagulation status of the patient. Therapeutic ranges for INR's are: Most clinical situations: INR 2.0-3.0 Mechanical Prosthetic Valve: INR 2.5-3.5 Critical: INR >5.0 Interpretation and Normal Invalid 12-02-2016 [facility] review of Interpretation laboratory results Code comprehensive metabolic panel on 2016-12-02 Alanine 12 0 - 40 U/L Invalid 12-02-2016 [facility] aminotransferase Interpretation (ALT) Code Albumin 4.0 3.2 - g/dL Invalid 12-02-2016 [facility] 5.2 Interpretation Code Alkaline phosphatase 95 40 - U/L Invalid 7 [facility] (ALP) 140 Interpretation Code Anion gap 16 10 - 20 mmol/L Invalid 12-02-2016 [facility] Interpretation Code Aspartate 12 0 - 45 U/L Invalid 12-02-2016 [facility] aminotransferase Interpretation (AST) Code Bicarbonate (HCO3) 24 21 - 32 mmol/L Invalid 12-02-2016 [facility] Interpretation Code Bilirubin (total) 0.2 0 - 1.3 mg/dL Invalid 12-02-2016 [facility] Interpretation Code BUN/Creatinine Ratio 14.9 10.0 - 1 Invalid 7 [facility] 20.0 Interpretation Code Calcium 9.2 8.4 - mg/dL Invalid 12-02-2016 [facility] 10.2 Interpretation Code Chloride 103 98 - mmol/L Invalid 12-02-2016 [facility] 108 Interpretation Code Creatinine 0.67 0.5 - mg/dL Invalid 12-02-2016 [facility] 1.3 Interpretation Code eGFR (non-black) 122 >=60 mL/min/ Invalid 12-02-2016 [facility] mL/min/1.73 m2 {1.73_m Interpretation 2} Code eGFR (non-black) The eGFR Invalid 12-02-2016 [facility] should be used Interpretation for monitoring Code renal function only and not for medication dosing. Glucose 84 65 - 99 mg/dL Invalid 12-02-2016 [facility] Interpretation Code Potassium 4.0 3.5 - mmol/L Invalid 12-02-2016 [facility] 5.1 Interpretation Code Protein 7.1 6 - 8 g/dL Invalid 12-02-2016 [facility] Interpretation Code Sodium 139 135 - mmol/L Invalid 12-02-2016 [facility] 145 Interpretation Code Urea nitrogen 10 8 - 25 mg/dL Invalid 12-02-2016 [facility] AB Interpretation Code cbc on 2016-12-02 Erythrocytes (RBC) 3.73 M/mcL 4.50 - Low 12-02-2016 [facility] 5.90 Erythrocytes (RBC) 0.00 K/mcL 0.00 - Invalid 12-02-2016 [facility] 0.00 Interpretation Code Hematocrit (HCT) 30.5 41 - 53 % Low 12-02-2016 [facility] Hemoglobin (HGB) 9.6 13.5 - g/dL Low 12-02-2016 [facility] 17.5 Interpretation and Abnormal Invalid 12-02-2016 [facility] review of laboratory Interpretation Code results MCH 25.7 26 - 34 pg Low 12-02-2016 [facility] MCHC 31.5 31 - 37 g/dL Invalid 12-02-2016 [facility] Interpretation Code MCV 81.8 80 - 100 fL Invalid 12-02-2016 [facility] Interpretation Code Nucleated 0.0 % Invalid 12-02-2016 [facility] erythrocytes/100 Interpretation Code erythrocytes Platelet mean volume 9.8 9 - 15.5 fL Invalid 7 [facility] (PMV) Interpretation Code Platelets 307 K/mcL 150 - 400 Invalid 12-02-2016 [facility] Interpretation Code RDW-CA 15.3 11.6 - % High 12-02-2016 [facility] 14.8 WBC (Leukocytes) 5.36 K/mcL 4.50 - Invalid 12-02-2016 [facility] 11.00 Interpretation Code creatinine, serum o n 2016-11-25 Creatinine 0.58 0.5 - mg/dL Invalid 11-25-2016 [facility] 1.3 Interpretation Code eGFR (non-black) 129 >=60 mL/min/{1 Invalid 11-25-2016 [facility] mL/min/1.73 m2 .73_m2} Interpretation Code eGFR (non-black) The eGFR Invalid 11-25-2016 [facility] should be used Interpretation for monitoring Code renal function only and not for medication dosing. Interpretation and Normal Invalid 11-25-2016 [facility] review of Interpretation laboratory results Code creatinine, serum o n 2016-11-24 Creatinine 0.68 0.5 - mg/dL Invalid 11-24-2016 [facility] 1.3 Interpretation Code eGFR (non-black) 121 >=60 mL/min/{1 Invalid 11-24-2016 [facility] mL/min/1.73 m2 .73_m2} Interpretation Code eGFR (non-black) The eGFR Invalid 11-24-2016 [facility] should be used Interpretation for monitoring Code renal function only and not for medication dosing. Interpretation and Normal Invalid 11-24-2016 [facility] review of Interpretation laboratory results Code vitamin d, total, 25-oh on 2016-11-23 Interpretation and Normal Invalid 11-23-2016 [facility] review of Interpretation [facility] laboratory results Code [facility] Vit D, 25-Hydroxy 39 30 - ng/m Invalid 11-23-2016 [facility] 100 L Interpretation [facility] Code [facility]OS[facility] L AB specimen Invalid 11-23-2016 [facility] already Interpretation [facility] obtained - Code [facility] LAB thanks creatinine, serum o n 2016-11-23 Creatinine 0.73 0.5 - mg/dL Invalid 11-23-2016 [facility] 1.3 Interpretation Code eGFR (non-black) The [...] Growth Beta Abnormal 11-22-2016 [facility] Hemolytic [facility] Streptococcus [facility] Group F INR in blood by Many WBC Invalid 11-22-2016 [facility] coagulation Interpretation [facility] AB INR in blood by Few RBC Invalid 11-22-2016 [facility] coagulation Interpretation [facility] AB INR in blood by Rare Gram Positive {INR Invalid 11-22 [facility] coagulation Cocci } Interpretation [facility] L AB Interpretation and Abnormal Invalid 11-22-2016 [facility] review of Interpretation [facility] laboratory results Code [facility] Gram Stain Invalid 11-22-2016 [facility] performed at [facility] Code [facility] Laboratory Vital Signs Vital Sign Description Value / Unit Date Location The following section is limited to 5 en tries per type and includes entries from the following time range: [id number] - 5. BMI (Body Mass Index) 33.37 kg/m2 11-27-2018 [facility] ([id number]) BMI (Body Mass Index) 33.37 kg/m2 10-23-2018 [facility] (59150) BMI (Body Mass Index) 33.37 kg/m2 09-06-2018 [facility] (52113) BMI (Body Mass Index) 33.37 kg/m2 06-07-2018 [facility] (47726) BMI (Body Mass Index) 33.5 kg/m2 05-25-2018 [facility] ([id number]) Body Temperature 98.49 [degF] 06-05-2018 [facility] (432 15) Body Temperature 98.6 [degF] 05-27-2018 [facility] (432 15) Body Temperature 98.01 [degF] 05-13-2018 [facility] (432 15) Body Temperature 97.59 [degF] 04-24-2018 [facility] (432 15) Body Temperature 97 [degF] 03-28-2018 [facility] (432 15) Body weight 102.51 kg 11-27-2018 [facility] (4321 5) Body weight 102.51 kg 10-23-2018 [facility] (4321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 Wound Fungus Culture no information [facility] (79399) XR Knee Left 2 Views XR Knee Left 2 Views 03-31-2017 [facility] ([id number]) (Standard) (Standard) Routine Type I or II open comminuted fracture of left patella with routine healing Once for 1 Occurrences starting 03/31/2017 until 03/31/2017 XR Knee Left 2 Views XR Knee Left 2 Views [facility] ([id number]) (Standard) (Standard) Routine Type I or II open comminuted fracture of left patella with routine healing 03/31/2017 1:09 PM EST Immunizations Vaccine Notes Status Date Location TDAP tetanus toxoid, reduced (completed) 08-27-2016 - [facility] ([id number]) diphtheria toxoid, and 08-27-2016 acellular pertussis vaccine, adsorbed Payers Payer Name Policy Number Location [facility] xxxxxxxxxxx [facility] ( [id number]) [employer]ED MEDICAID [id number] [facility] ([id number]) [place] [employer], MEDICAID, [id number] [facility] ([id number]) [employer], MEDICAID, [employer], MEDICAID, [employer] [employer] xxxxxxxxxxxx [facility] (4321 5) [id number] [facility] ([id number]) [id number] [facility] ([id number]) [id number] [facility] ([id number]) [id number] [facility] ([id number]) [id number] [facility] ([id number]) [id number] [facility] (40297) [id number] [facility] ([id number]) [id number] [facility] ([id number]) [id number] [facility] ([id number]) [id number] [facility] ([id number]) [id number] [facility] ([id number]) [id number] [facility] ([id number]) [id number] [facility] ([id number]) [id number] [facility] ([id number]) [phone] [facility] ([id number]) [phone] [facility] ([id number]) The following information is from the original human readable contentNo Payer Records Found Social History Type Social History Date Location Description Tobacco smoking status Former smoker 12-21-2016 - [facility] ([id number]) MNIS 03-14-2017 History of tobacco use Current smoker 08-25-2016 [facility] (55945) Sex Assigned At Not on file [facility] ([id number]) Tobacco Comment 1 pack per week for 20 10-01-2016 - [facility] (73496) years 10-01-2016 Tobacco smoking status Current every day smoker 06-05-2018 - [facility] ([id number]) NHIS 09-06-2018 Alcohol intake Current non-drinker of 09-06-2018 [facility] (90532) alcohol (finding) The following information is from [...] 12-24-2016 Radiopaque Simplex P Single Dose - [id number] Screw 2.4 X 22mm Moraima 017 Ang Lock Strdrv - [id number] Tube Sz8 Trach 08-26-2016 Cuffed - [id number] Tube 22fr Feeding 08-26-2016 Gastrostomy Junior - [id number] Screw 2.4 X 32mm Va 08-28-19 17 Lock Self-Tap Strdrv Rec - [id number] Screw 2.4 X 44mm Va 08-28-19 17 Lock Self-Tap Strdrv Rec - [id number] Screw 2.4 X 36mm 08-27-2016 Cortex Self-Tap T8 Strdrv Rec - [id number] Screw 2.4 X 38mm 08-27-2016 Cortex Self-Tap T8 Strdrv Rec - [id number] Wire K .045 X 5.5in 08-28-19 17 W/Wire Guide - [id number] Plate 2.4mm 2.7mm 08-27-2016 Va-Lock Mesh 5 X 12hls - [id number] Wire 15 X 150mm 08-27-2016 Compression Thrd - [id number] 1.6mm Compression 08-27-2016 Wires 20mm Thread Length, 1500mm Total Length Screw 2.4 X 18mm Moraima 017 Ang Lock Strdrv - [id number] Screw 2.4 X 20mm Moraima 017 Ang Lock Strdrv - [id number] Screw 2.4 X 22mm Moraima 017 Ang Lock Strdrv - [id number] Hemostat 8 X 12.5cm 11-04-19 17 X 10mm Surgifoam Gelatin Sponge - [id number] Screw 2.5 X 4mm Ti 7 Schanz 14mm Thrd Body - [id number] Hemostat 2 X 14in 12-03-2016 Surgicel - [id number] Mandible Bone Infuse Bone 11-03-2016 Graft Sm - [id number] Bone Infuse Bone 05-25-2017 Graft Xsm - [id number] Cement Bone 12-24-2016 Radiopaque Simplex P Single Dose - [id number] Tube Sz8 Trach 08-26-2016 Cuffed - [id number] Tube 22fr Feeding 08-26-2016 Gastrostomy Junior - [id number] Screw 2.4 X 32mm Va 08-28-19 17 Lock Self-Tap Strdrv Rec - [id number] Screw 2.4 X 44mm Va 08-28-19 17 Lock Self-Tap Strdrv Rec - [id number] Screw 2.4 X 36mm 08-27-2016 Cortex Self-Tap T8 Strdrv Rec - [id number] Screw 2.4 X 38mm 08-27-2016 Cortex Self-Tap T8 Strdrv Rec - [id number] Wire K .045 X 5.5in 08-28-19 17 W/Wire Guide - [id number] Plate 2.4mm 2.7mm 08-27-2016 Va-Lock Mesh 5 X 12hls - [id number] Wire 15 X 150mm 08-27-2016 Compression Thrd - [id number] 1.6mm Compression 08-27-2016 Wires 20mm Thread Length, 1500mm Total Length Screw 2.4 X 18mm Moraima 017 Ang Lock Strdrv - [id number] Screw 2.4 X 20mm Moraima 017 Ang Lock Strdrv - [id number] Screw 2.4 X 22mm Moraima 017 Ang Lock Strdrv - [id number] Hemostat 8 X 12.5cm 11-04-19 17 X 10mm Surgifoam Gelatin Sponge - [id number] Screw 2.5 X 4mm Ti 7 Schanz 14mm Thrd Body - [id number] Hemostat 2 X 14in 12-03-2016 Surgicel - [id number] Hemostat 8 X 6.25cm 05-25-19 18 X 10mm Surgifoam Gelatin Sponge - [id number] Screw 2 X 10mm Cross 018 Pin Locking - [id number] Screw 2 X 14mm Cross 018 Pin Locking - [id number] Plate 11hl Str Recon 018 - [id number] Bone Infuse Bone 11-03-2016 Graft Sm - [id number] Bone Infuse Bone 05-25-2017 Graft Xsm - [id number] Cement Bone 12-24-2016 Radiopaque Simplex P Single Dose - [id number] Tube Sz8 Trach 08-26-2016 Cuffed - [id number] Tube 22fr Feeding 08-26-2016 Gastrostomy Junior - [id number] Screw 2.4 X 32mm Va 08-28-19 17 Lock Self-Tap Strdrv Rec - [id number] Screw 2.4 X 44mm Va 08-28-19 17 Lock Self-Tap Strdrv Rec - [id number] Screw 2.4 X 36mm 08-27-2016 Cortex Self-Tap T8 Strdrv Rec - [id number] Screw 2.4 X 38mm 08-27-2016 Cortex Self-Tap T8 Strdrv Rec - [id number] Wire K .045 X 5.5in 08-28-19 17 W/Wire Guide - [id number] Plate 2.4mm 2.7mm 08-27-2016 Va-Lock Mesh 5 X 12hls - [id number] Wire 15 X 150mm 08-27-2016 Compression Thrd - [id number] 1.6mm Compression 08-27-2016 Wires 20mm Thread Length, 1500mm Total Length Screw 2.4 X 18mm Moraima 017 Ang Lock Strdrv - [id number] Screw 2.4 X 20mm Moraima 017 Ang Lock Strdrv - [id number] Screw 2.4 X 22mm Moraima 017 Ang Lock Strdrv - [id number] Hemostat 8 X 12.5cm 11-04-19 17 X 10mm Surgifoam Gelatin Sponge - [id number] Screw 2.5 X 4mm Ti 7 Schanz 14mm Thrd Body - [id number] Hemostat 2 X 14in 12-03-2016 Surgicel - [id number] Hemostat 8 X 6.25cm 05-25-19 18 X 10mm Surgifoam Gelatin Sponge - [id number] Screw 2 X 10mm Cross 018 Pin Locking - [id number] Screw 2 X 14mm Cross 018 Pin Locking - [id number] Plate 11hl Str Recon 018 - [id number] Bone Infuse Bone 11-03-2016 Graft Sm - [id number] Bone Infuse Bone 05-25-2017 Graft Xsm - [id number] Cement Bone 12-24-2016 Radiopaque Simplex P Single Dose - [id number] Tube Sz8 Trach 08-26-2016 Cuffed - [id number] Tube 22fr Feeding 08-26-2016 Gastrostomy Junior - [id number] Screw 2.4 X 32mm Va 08-28-19 17 Lock Self-Tap Strdrv Rec - [id number] Screw 2.4 X 44mm Va 08-28-19 17 Lock Self-Tap Strdrv Rec - [id number] Screw 2.4 X 36mm 08-27-2016 Cortex Self-Tap T8 Strdrv Rec - [id number] Screw 2.4 X 38mm 08-27-2016 Cortex Self-Tap T8 Strdrv Rec - [id number] Wire K .045 X 5.5in 08-28-19 17 W/Wire Guide - [id number] Plate 2.4mm 2.7mm 08-27-2016 Va-Lock Mesh 5 X 12hls - [id number] Wire 15 X 150mm 08-27-2016 Compression Thrd - [id number] 1.6mm Compression 08-27-2016 Wires 20mm Thread Length, 1500mm Total Length Screw 2.4 X 18mm Moraima 017 Ang Lock Strdrv - [id number] Screw 2.4 X 20mm Moraima 017 Ang Lock Strdrv - [id number] Screw 2.4 X 22mm Moraima 017 Ang Lock Strdrv - [id number] Hemostat 8 X 12.5cm 11-04-19 17 X 10mm Surgifoam Gelatin Sponge - [id number] Screw 2.5 X 4mm Ti 7 Schanz 14mm Thrd Body - [id number] Hemostat 2 X 14in 12-03-2016 Surgicel - [id number] Hemostat 8 X 6.25cm 05-25-19 18 X 10mm Surgifoam Gelatin Sponge - [id number] Screw 2 X 10mm Cross 018 Pin Locking - [id number] Screw 2 X 14mm Cross 018 Pin Locking - [id number] Plate 11hl Str Recon 018 - [id number] Bone Infuse Bone 11-03-2016 Graft Sm - [id number] Bone Infuse Bone 05-25-2017 Graft Xsm - [id number] Cement Bone 12-24-2016 Radiopaque Simplex P Single Dose - [id number] Tube Sz8 Trach 08-26-2016 Cuffed - [id number] Tube 22fr Feeding 08-26-2016 Gastrostomy Junior - [id number] Screw 2.4 X 32mm Va 08-28-19 17 Lock Self-Tap Strdrv Rec - [id number] Screw 2.4 X 44mm Va 08-28-19 17 Lock Self-Tap Strdrv Rec - [id number] Screw 2.4 X 36mm 08-27-2016 Cortex Self-Tap T8 Strdrv Rec - [id number] Screw 2.4 X 38mm 08-27-2016 Cortex Self-Tap T8 Strdrv Rec - [id number] Wire K .045 X 5.5in 08-28-19 17 W/Wire Guide - [id number] Plate 2.4mm 2.7mm 08-27-2016 Va-Lock Mesh 5 X 12hls - [id number] Wire 15 X 150mm 08-27-2016 Compression Thrd - [id number] 1.6mm Compression 08-27-2016 Wires 20mm Thread Length, 1500mm Total Length Screw 2.4 X 18mm Moraima 017 Ang Lock Strdrv - [id number] Screw 2.4 X 20mm Moraima 017 Ang Lock Strdrv - [id number] Screw 2.4 X 22mm Moraima 017 Ang Lock Strdrv - [id number] Hemostat 8 X 12.5cm 11-04-19 17 X 10mm Surgifoam Gelatin Sponge - [id number] Screw 2.5 X 4mm Ti 7 Schanz 14mm Thrd Body - [id number] Hemostat 2 X 14in 12-03-2016 Surgicel - [id number] Hemostat 8 X 6.25cm 05-25-19 18 X 10mm Surgifoam Gelatin Sponge - [id number] Screw 2 X 10mm Cross 018 Pin Locking - [id number] Screw 2 X 14mm Cross 018 Pin Locking - [id number] Plate 11hl Str Recon 018 - [id number] Bone Infuse Bone 11-03-2016 Graft Sm - [id number] Bone Infuse Bone 05-25-2017 Graft Xsm - [id number] Cement Bone 12-24-2016 Radiopaque Simplex P Single Dose - [id number] Tube Sz8 Trach 08-26-2016 Cuffed - [id number] Tube 22fr Feeding 08-26-2016 Gastrostomy Junior - [id number] Screw 2.4 X 32mm Va 08-28-19 17 Lock Self-Tap Strdrv Rec - [id number] Screw 2.4 X 44mm Va 08-28-19 17 Lock Self-Tap Strdrv Rec - [id number] Screw 2.4 X 36mm 08-27-2016 Cortex Self-Tap T8 Strdrv Rec - Oxp225190 Screw 2.4 X 38mm 08-27-2016 Cortex Self-Tap T8 Strdrv Rec - [id number] Wire K .045 X 5.5in 08-28-19 17 W/Wire Guide - [id number] Plate 2.4mm 2.7mm 08-27-2016 Va-Lock Mesh 5 X 12hls - [id number] Wire 15 X 150mm 08-27-2016 Compression Thrd - [id number] 1.6mm Compression 08-27-2016 Wires 20mm Thread Length, 1500mm Total Length Screw 2.4 X 18mm Moraima 017 Ang Lock Strdrv - [id number] Screw 2.4 X 20mm Moraima 017 Ang Lock Strdrv - [id number] Screw 2.4 X 22mm Moraima 017 Ang Lock Strdrv - [id number] Hemostat 8 X 12.5cm 11-04-19 17 X 10mm Surgifoam Gelatin Sponge - [id number] Screw 2.5 X 4mm Ti 7 Schanz 14mm Thrd Body - [id number] Hemostat 2 X 14in 12-03-2016 Surgicel - [id number] Hemostat 8 X 6.25cm 05-25-19 18 X 10mm Surgifoam Gelatin Sponge - [id number] Screw 2 X 10mm Cross 018 Pin Locking - [id number] Screw 2 X 14mm Cross 018 Pin Locking - [id number] Plate 11hl Str Recon 018 - [id number] Bone Infuse Bone 11-03-2016 Graft Sm - [id number] Bone Infuse Bone 05-25-2017 Graft Xsm - [id number] Cement Bone 12-24-2016 Radiopaque Simplex P Single Dose - [id number] Tube Sz8 Trach 08-26-2016 Cuffed - [id number] Tube 22fr Feeding 08-26-2016 Gastrostomy Junior - [id number] Screw 2.4 X 32mm Va 08-28-19 17 Lock Self-Tap Strdrv Rec - [id number] Screw 2.4 X 44mm Va 08-28-19 17 Lock Self-Tap Strdrv Rec - [id number] Screw 2.4 X 36mm 08-27-2016 Cortex Self-Tap T8 Strdrv Rec - [id number] Screw 2.4 X 38mm 08-27-2016 Cortex Self-Tap T8 Strdrv Rec - [id number] Wire K .045 X 5.5in 08-28-19 17 W/Wire Guide - [id number] Plate 2.4mm 2.7mm 08-27-2016 Va-Lock Mesh 5 X 12hls - [id number] Wire 15 X 150mm 08-27-2016 Compression Thrd - [id number] 1.6mm Compression 08-27-2016 Wires 20mm Thread Length, 1500mm Total Length Screw 2.4 X 18mm Moraima 017 Ang Lock Strdrv - [id number] Screw 2.4 X 20mm Moraima 017 Ang Lock Strdrv - Cwd154971 Screw 2.4 X 22mm Moraima 017 Ang Lock Strdrv - [id number] Hemostat 8 X 12.5cm 11-04-19 17 X 10mm Surgifoam Gelatin Sponge - [id number] Screw 2.5 X 4mm Ti 7 Schanz 14mm Thrd Body - [id number] Hemostat 2 X 14in 12-03-2016 Surgicel - [id number] Hemostat 8 X 6.25cm 05-25-19 18 X 10mm Surgifoam Gelatin Sponge - [id number] Screw 2 X 10mm Cross 018 Pin Locking - [id number] Screw 2 X 14mm Cross 018 Pin Locking - [id number] Plate 11hl Str Recon 018 - [id number] Bone Infuse Bone 11-03-2016 Graft Sm - [id number] Bone Infuse Bone 05-25-2017 Graft Xsm - [id number] Cement Bone 12-24-2016 Radiopaque Simplex P Single Dose - [id number] Tube Sz8 Trach 08-26-2016 Cuffed - [id number] Tube 22fr Feeding 08-26-2016 Gastrostomy Junior - [id number] Screw 2.4 X 32mm Va 08-28-19 17 Lock Self-Tap Strdrv Rec - [id number] Screw 2.4 X 44mm Va 08-28-19 17 Lock Self-Tap Strdrv Rec - [id number] Screw 2.4 X 36mm 08-27-2016 Cortex Self-Tap T8 Strdrv Rec - [id number] Screw 2.4 X 38mm 08-27-2016 Cortex Self-Tap T8 Strdrv Rec - [id number] Wire K .045 X 5.5in 08-28-19 17 W/Wire Guide - [id number] Plate 2.4mm 2.7mm 08-27-2016 Va-Lock Mesh 5 X 12hls - [id number] Wire 15 X 150mm 08-27-2016 Compression Thrd - [id number] 1.6mm Compression 08-27-2016 Wires 20mm Thread Length, 1500mm Total Length Screw 2.4 X 18mm Moraima 017 Ang Lock Strdrv - [id number] Screw 2.4 X 20mm Moraima 017 Ang Lock Strdrv - [id number] Screw 2.4 X 22mm Moraima 017 Ang Lock Strdrv - [id number] Hemostat 8 X 12.5cm 11-04-19 17 X 10mm Surgifoam Gelatin Sponge - [id number] Screw 2.5 X 4mm Ti 7 Schanz 14mm Thrd Body - [id number] Hemostat 2 X 14in 12-03-2016 Surgicel - [id number] Hemostat 8 X 6.25cm 05-25-19 18 X 10mm Surgifoam Gelatin Sponge - [id number] Screw 2 X 10mm Cross 018 Pin Locking - [id number] Screw 2 X 14mm Cross 018 Pin Locking - [id number] Plate 11hl Str Recon 018 - [id number] Bone Infuse Bone 11-03-2016 Graft Sm - [id number] Bone Infuse Bone 05-25-2017 Graft Xsm - [id number] Cement Bone 12-24-2016 Radiopaque Simplex P Single Dose - [id number] Tube Sz8 Trach 08-26-2016 Cuffed - [id number] Tube 22fr Feeding 08-26-2016 Gastrostomy Junior - Pse484528 Screw 2.4 X 32mm Va 08-28-19 17 Lock Self-Tap Strdrv Rec - [id number] Screw 2.4 X 44mm Va 08-28-19 17 Lock Self-Tap Strdrv Rec - Ijl902365 Screw 2.4 X 36mm 08-27-2016 Cortex Self-Tap T8 Strdrv Rec - [id number] Screw 2.4 X 38mm 08-27-2016 Cortex Self-Tap T8 Strdrv Rec - [id number] Wire K .045 X 5.5in 08-28-19 17 W/Wire Guide - [id number] Plate 2.4mm 2.7mm 08-27-2016 Va-Lock Mesh 5 X 12hls - [id number] Wire 15 X 150mm 08-27-2016 Compression Thrd - [id number] 1.6mm Compression 08-27-2016 Wires 20mm Thread Length, 1500mm Total Length Screw 2.4 X 18mm Moraima 017 Ang Lock Strdrv - [id number] Screw 2.4 X 20mm Moraima 017 Ang Lock Strdrv - [id number] Screw 2.4 X 22mm Moraima 017 Ang Lock Strdrv - [id number] Hemostat 8 X 12.5cm 11-04-19 17 X 10mm Surgifoam Gelatin Sponge - [id number] Screw 2.5 X 4mm Ti 7 Schanz 14mm Thrd Body - [id number] Hemostat 2 X 14in 12-03-2016 Surgicel - [id number] Hemostat 8 X 6.25cm 05-25-19 18 X 10mm Surgifoam Gelatin Sponge - [id number] Screw 2 X 10mm Cross 018 Pin Locking - [id number] Screw 2 X 14mm Cross 018 Pin Locking - [id number] Plate 11hl Str Recon 018 - [id number] Bone Infuse Bone 11-03-2016 Graft Sm - [id number] Cement Bone 12-24-2016 Radiopaque Simplex P Single Dose - [id number] Tube Sz8 Trach 08-26-2016 Cuffed - [id number] Tube 22fr Feeding 08-26-2016 Gastrostomy Junior - Lsl980349 Screw 2.4 X 32mm Va 08-28-19 17 Lock Self-Tap Strdrv Rec - [id number] Screw 2.4 X 44mm Va 08-28-19 17 Lock Self-Tap Strdrv Rec - [id number] Screw 2.4 X 36mm 08-27-2016 Cortex Self-Tap T8 Strdrv Rec - [id number] Screw 2.4 X 38mm 08-27-2016 Cortex Self-Tap T8 Strdrv Rec - [id number] Wire K .045 X 5.5in 08-28-19 17 W/Wire Guide - [id number] Plate 2.4mm 2.7mm 08-27-2016 Va-Lock Mesh 5 X 12hls - [id number] Wire 15 X 150mm 08-27-2016 Compression Thrd - [id number] 1.6mm Compression 08-27-2016 Wires 20mm Thread Length, 1500mm Total Length Screw 2.4 X 18mm Moraima 017 Ang Lock Strdrv - [id number] Screw 2.4 X 20mm Moraima 017 Ang Lock Strdrv - [id number] Screw 2.4 X 22mm Moraima 017 Ang Lock Strdrv - [id number] Hemostat 8 X 12.5cm 11-04-19 17 X 10mm Surgifoam Gelatin Sponge - [id number] Screw 2.5 X 4mm Ti 7 Schanz 14mm Thrd Body - [id number] Hemostat 2 X 14in 12-03-2016 Surgicel - [id number] Bone Infuse Bone 11-03-2016 Graft Sm - [id number] Tube Sz8 Trach 08-26-2016 Cuffed - [id number] Tube 22fr Feeding 08-26-2016 Gastrostomy Junior - [id number] Screw 2.4 X 32mm Va 08-28-19 17 Lock Self-Tap Strdrv Rec - [id number] Screw 2.4 X 44mm Va 08-28-19 17 Lock Self-Tap Strdrv Rec - [id number] Screw 2.4 X 36mm 08-27-2016 Cortex Self-Tap T8 Strdrv Rec - [id number] Screw 2.4 X 38mm 08-27-2016 Cortex Self-Tap T8 Strdrv Rec - [id number] Wire K .045 X 5.5in 08-28-19 17 W/Wire Guide - [id number] Plate 2.4mm 2.7mm 08-27-2016 Va-Lock Mesh 5 X 12hls - [id number] Wire 15 X 150mm 08-27-2016 Compression Thrd - [id number] 1.6mm Compression 08-27-2016 Wires 20mm Thread Length, 1500mm Total Length Screw 2.4 X 18mm Moraima 017 Ang Lock Strdrv - [id number] Screw 2.4 X 20mm Moraima 017 Ang Lock Strdrv - [id number] Screw 2.4 X 22mm Moraima 017 Ang Lock Strdrv - [id number] Hemostat 8 X 12.5cm 11-04-19 17 X 10mm Surgifoam Gelatin Sponge - [id number] Screw 2.5 X 4mm Ti 7 Schanz 14mm Thrd Body - [id number] Hemostat 2 X 14in 12-03-2016 Surgicel - [id number] Bone Infuse Bone 11-03-2016 Graft Sm - [id number] Cement Bone 12-24-2016 Radiopaque Simplex P Single Dose - [id number] Tube Sz8 Trach 08-26-2016 Cuffed - [id number] Tube 22fr Feeding 08-26-2016 Gastrostomy Junior - [id number] Screw 2.4 X 32mm Va 08-28-19 17 Lock Self-Tap Strdrv Rec - [id number] Screw 2.4 X 44mm Va 08-28-19 17 Lock Self-Tap Strdrv Rec - [id number] Screw 2.4 X 36mm 08-27-2016 Cortex Self-Tap T8 Strdrv Rec - [id number] Screw 2.4 X 38mm 08-27-2016 Cortex Self-Tap T8 Strdrv Rec - [id number] Wire K .045 X 5.5in 08-28-19 17 W/Wire Guide - [id number] Plate 2.4mm 2.7mm 08-27-2016 Va-Lock Mesh 5 X 12hls - [id number] Wire 15 X 150mm 08-27-2016 Compression Thrd - [id number] 1.6mm Compression 08-27-2016 Wires 20mm Thread Length, 1500mm Total Length Screw 2.4 X 18mm Moraima 017 Ang Lock Strdrv - [id number] Screw 2.4 X 20mm Moraima 017 Ang Lock Strdrv - [id number] Screw 2.4 X 22mm Moraima 017 Ang Lock Strdrv - [id number] Hemostat 8 X 12.5cm 11-04-19 17 X 10mm Surgifoam Gelatin Sponge - [id number] Screw 2.5 X 4mm Ti 7 Schanz 14mm Thrd Body - [id number] Hemostat 2 X 14in 12-03-2016 Surgicel - [id number] Bone Infuse Bone 11-03-2016 Graft Sm - [id number] Cement Bone 12-24-2016 Radiopaque Simplex P Single Dose - [id number] Tube Sz8 Trach 08-26-2016 Cuffed - [id number] Tube 22fr Feeding 08-26-2016 Gastrostomy Junior - Tkd392270 Screw 2.4 X 32mm Va 08-28-19 17 Lock Self-Tap Strdrv Rec - [id number] Screw 2.4 X 44mm Va 08-28-19 17 Lock Self-Tap Strdrv Rec - [id number] Screw 2.4 X 36mm 08-27-2016 Cortex Self-Tap T8 Strdrv Rec - [id number] Screw 2.4 X 38mm 08-27-2016 Cortex Self-Tap T8 Strdrv Rec - [id number] Wire K .045 X 5.5in 08-28-19 17 W/Wire Guide - [id number] Plate 2.4mm 2.7mm 08-27-2016 Va-Lock Mesh 5 X 12hls - [id number] Wire 15 X 150mm 08-27-2016 Compression Thrd - [id number] 1.6mm Compression 08-27-2016 Wires 20mm Thread Length, 1500mm Total Length Screw 2.4 X 18mm Moraima 017 Ang Lock Strdrv - [id number] Screw 2.4 X 20mm Moraima 017 Ang Lock Strdrv - [id number] Screw 2.4 X 22mm Moraima 017 Ang Lock Strdrv - [id number] Hemostat 8 X 12.5cm 11-04-19 17 X 10mm Surgifoam Gelatin Sponge - [id number] Screw 2.5 X 4mm Ti 7 Schanz 14mm Thrd Body - [id number] Hemostat 2 X 14in 12-03-2016 Surgicel - [id number] Bone Infuse Bone 11-03-2016 Graft Sm - [id number] Bone Infuse Bone 05-25-2017 Graft Xsm - [id number] Cement Bone 12-24-2016 Radiopaque Simplex P Single Dose - [id number] Tube Sz8 Trach 08-26-2016 Cuffed - [id number] Tube 22fr Feeding 08-26-2016 Gastrostomy Junior - [id number] Screw 2.4 X 32mm Va 08-28-19 17 Lock Self-Tap Strdrv Rec - [id number] Screw 2.4 X 44mm Va 08-28-19 17 Lock Self-Tap Strdrv Rec - [id number] Screw 2.4 X 36mm 08-27-2016 Cortex Self-Tap T8 Strdrv Rec - [id number] Screw 2.4 X 38mm 08-27-2016 Cortex Self-Tap T8 Strdrv Rec - [id number] Wire K .045 X 5.5in 08-28-19 17 W/Wire Guide - [id number] Plate 2.4mm 2.7mm 08-27-2016 Va-Lock Mesh 5 X 12hls - [id number] Wire 15 X 150mm 08-27-2016 Compression Thrd - [id number] 1.6mm Compression 08-27-2016 Wires 20mm Thread Length, 1500mm Total Length Screw 2.4 X 18mm [place] 017 Ang Lock Strdrv - [id number] Screw 2.4 X 20mm [place] 017 Ang Lock Strdrv - [id number] Screw 2.4 X 22mm [place] 017 Ang Lock Strdrv - [id number] Hemostat 8 X 12.5cm 11-04-19 17 X 10mm Surgifoam Gelatin Sponge - [id number] Screw 2.5 X 4mm Ti 7 Schanz 14mm Thrd Body - [id number] Hemostat 2 X 14in 12-03-2016 Surgicel - [id number] Hemostat 8 X 6.25cm 05-25-19 18 X 10mm Surgif[place]am Gelatin Sponge - [id number] Screw 2 X 10mm Cross 018 Pin Locking - [id number] Screw 2 X 14mm Cross 018 Pin Locking - [id number] Plate 11hl Str Recon 018 - [id number] Screw 2 X 12mm Mmf 8 Self-Drill - [id number] Bone Infuse Bone 11-03-2016 Graft Sm - [id number] Tube Sz8 Trach 08-26-2016 Cuffed - [id number] Tube 22fr Feeding 08-26-2016 Gastrostomy Junior - [id number] Screw 2.4 X 32mm Va 08-28-19 17 Lock Self-Tap Strdrv Rec - [id number] Screw 2.4 X 44mm Va 08-28-19 17 Lock Self-Tap Strdrv Rec - [id number] Screw 2.4 X 36mm 08-27-2016 Cortex Self-Tap T8 Strdrv Rec - [id number] Screw 2.4 X 38mm 08-27-2016 Cortex Self-Tap T8 Strdrv Rec - [id number] Wire K .045 X 5.5in 08-28-19 17 W/Wire Guide - [id number] Plate 2.4mm 2.7mm 08-27-2016 Va-Lock Mesh 5 X 12hls - [id number] Wire 15 X 150mm 08-27-2016 Compression Thrd - [id number] 1.6mm Compression 08-27-2016 Wires 20mm Thread Length, 1500mm Total Length Screw 2.4 X 18mm [place] 017 Ang Lock Strdrv - [id number] Screw 2.4 X 20mm [place] 017 Ang Lock Strdrv - [id number] Screw 2.4 X 22mm [place] 017 Ang Lock Strdrv - [id number] Hemostat 8 X 12.5cm 11-04-19 17 X 10mm Surgifoam Gelatin Sponge - [id number] Screw 2.5 X 4mm Ti 7 Schanz 14mm Thrd Body - [id number] Hemostat 2 X 14in 12-03-2016 Surgicel - [id number] Bone Infuse Bone 11-03-2016 Graft Sm - [id number] Tube Sz8 Trach 08-26-2016 Cuffed - [id number] Tube 22fr Feeding 08-26-2016 Gastrostomy Junior - [id number] Screw 2.4 X 32mm Va 08-28-19 17 Lock Self-Tap Strdrv Rec - [id number] Screw 2.4 X 44mm Va 08-28-19 17 Lock Self-Tap Strdrv Rec - [id number] Screw 2.4 X 36mm 08-27-2016 Cortex Self-Tap T8 Strdrv Rec - [id number] Screw 2.4 X 38mm 08-27-2016 Cortex Self-Tap T8 Strdrv Rec - [id number] Wire K .045 X 5.5in 08-28-19 17 W/Wire Guide - [id number] Plate 2.4mm 2.7mm 08-27-2016 Va-Lock Mesh 5 X 12hls - [id number] Wire 15 X 150mm 08-27-2016 Compression Thrd - [id number] 1.6mm Compression 08-27-2016 Wires 20mm Thread Length, 1500mm Total Length Screw 2.4 X 18mm [place] 017 Ang Lock Strdrv - [id number] Screw 2.4 X 20mm [place] 017 Ang Lock Strdrv - [id number] Screw 2.4 X 22mm [place] 017 Ang Lock Strdrv - [id number] Hemostat 8 X 12.5cm 11-04-19 17 X 10mm Surgifoam Gelatin Sponge - [id number] Screw 2.5 X 4mm Ti 7 Schanz 14mm Thrd Body - [id number] Bone Infuse Bone 11-03-2016 Graft Sm - [id number] Tube Sz8 Trach 08-26-2016 Cuffed - [id number] Tube 22fr Feeding 08-26-2016 Gastrostomy Junior - [id number] Screw 2.4 X 32mm Va 08-28-19 17 Lock Self-Tap Strdrv Rec - [id number] Screw 2.4 X 44mm Va 08-28-19 17 Lock Self-Tap Strdrv Rec - [id number] Screw 2.4 X 36mm 08-27-2016 Cortex Self-Tap T8 Strdrv Rec - [id number] Screw 2.4 X 38mm 08-27-2016 Cortex Self-Tap T8 Strdrv Rec - [id number] Wire K .045 X 5.5in 08-28-19 17 W/Wire Guide - [id number] Plate 2.4mm 2.7mm 08-27-2016 Va-Lock Mesh 5 X 12hls - [id number] Wire 15 X 150mm 08-27-2016 Compression Thrd - [id number] 1.6mm Compression 08-27-2016 Wires 20mm Thread Length, 1500mm Total Length Screw 2.4 X 18mm [place] 017 Ang Lock Strdrv - [id number] Screw 2.4 X 20mm [place] 017 Ang Lock Strdrv - [id number] Screw 2.4 X 22mm [place] 017 Ang Lock Strdrv - [id number] Hemostat 8 X 12.5cm 11-04-19 17 X 10mm Surgifoam Gelatin Sponge - [id number] Screw 2.5 X 4mm Ti 7 Schanz 14mm Thrd Body - [id number] Hemostat 2 X 14in 12-03-2016 Surgicel - [id number] Bone Infuse Bone 11-03-2016 Graft Sm - [id number] Tube Sz8 Trach 08-26-2016 Cuffed - [id number] Tube 22fr Feeding 08-26-2016 Gastrostomy Junior - Fnp174696 Screw 2.4 X 32mm Va 08-28-19 17 Lock Self-Tap Strdrv Rec - [id number] Screw 2.4 X 44mm Va 08-28-19 17 Lock Self-Tap Strdrv Rec - [id number] Screw 2.4 X 36mm 08-27-2016 Cortex Self-Tap T8 Strdrv Rec - [id number] Screw 2.4 X 38mm 08-27-2016 Cortex Self-Tap T8 Strdrv Rec - [id number] Wire K .045 X 5.5in 08-28-19 17 W/Wire Guide - [id number] Plate 2.4mm 2.7mm 08-27-2016 Va-Lock Mesh 5 X 12hls - [id number] Wire 15 X 150mm 08-27-2016 Compression Thrd - [id number] 1.6mm Compression 08-27-2016 Wires 20mm Thread Length, 1500mm Total Length Screw 2.4 X 18mm [place] 017 Ang Lock Strdrv - [id number] Screw 2.4 X 20mm [place] 017 Ang Lock Strdrv - [id number] Screw 2.4 X 22mm [place] 017 Ang Lock Strdrv - [id number] Hemostat 8 X 12.5cm 11-04-19 17 X 10mm Surgifoam Gelatin Sponge - [id number] Screw 2.5 X 4mm Ti 7 Schanz 14mm Thrd Body - [id number] Hemostat 2 X 14in 12-03-2016 Surgicel - [id number] Bone Infuse Bone 11-03-2016 Graft Sm - [id number] Tube Sz8 Trach 08-26-2016 Cuffed - [id number] Tube 22fr Feeding 08-26-2016 Gastrostomy Junior - Sqv892559 Screw 2.4 X 32mm Va 08-28-19 17 Lock Self-Tap Strdrv Rec - [id number] Screw 2.4 X 44mm Va 08-28-19 17 Lock Self-Tap Strdrv Rec - [id number] Screw 2.4 X 36mm 08-27-2016 Cortex Self-Tap T8 Strdrv Rec - [id number] Screw 2.4 X 38mm 08-27-2016 Cortex Self-Tap T8 Strdrv Rec - Gjz137756 Wire K .045 X 5.5in 08-28-19 17 W/Wire Guide - [id number] Plate 2.4mm 2.7mm 08-27-2016 Va-Lock Mesh 5 X 12hls - [id number] Wire 15 X 150mm 08-27-2016 Compression Thrd - [id number] 1.6mm Compression 08-27-2016 Wires 20mm Thread Length, 1500mm Total Length Screw 2.4 X 18mm [place] 017 Ang Lock Strdrv - [id number] Screw 2.4 X 20mm [place] 017 Ang Lock Strdrv - [id number] Screw 2.4 X 22mm [place] 017 Ang Lock Strdrv - [id number] Hemostat 8 X 12.5cm 11-04-19 17 X 10mm Surgifoam Gelatin Sponge - [id number] Screw 2.5 X 4mm Ti 7 Schanz 14mm Thrd Body - [id number] Wire 24ga Dental - 7 [id number] Plate 11hl Str Recon 017 - [id number] Screw 2 X 12mm Mmf 7 Self-Drill - [id number] Screw 2 X 8mm Cross 11-04-19 17 Pin Locking - [id number] Screw 2 X 10mm Cross 017 Pin Locking - [id number] Screw 2 X 12mm Cross 017 Pin Locking - [id number] Bone Infuse Bone 11-03-2016 Graft Sm - [id number] Cement Bone 12-24-2016 Radiopaque Simplex P Single Dose - [id number] Tube Sz8 Trach 08-26-2016 Cuffed - [id number] Tube 22fr Feeding 08-26-2016 Gastrostomy Junior - [id number] Screw 2.4 X 32mm Va 08-28-19 17 Lock Self-Tap Strdrv Rec - [id number] Screw 2.4 X 44mm Va 08-28-19 17 Lock Self-Tap Strdrv Rec - [id number] Screw 2.4 X 36mm 08-27-2016 Cortex Self-Tap T8 Strdrv Rec - [id number] Screw 2.4 X 38mm 08-27-2016 Cortex Self-Tap T8 Strdrv Rec - [id number] Wire K .045 X 5.5in 08-28-19 17 W/Wire Guide - [id number] Plate 2.4mm 2.7mm 08-27-2016 Va-Lock Mesh 5 X 12hls - [id number] Wire 15 X 150mm 08-27-2016 Compression Thrd - [id number] 1.6mm Compression 08-27-2016 Wires 20mm Thread Length, 1500mm Total Length Screw 2.4 X 18mm [place] 017 Ang Lock Strdrv - [id number] Screw 2.4 X 20mm [place] 017 Ang Lock Strdrv - [id number] Screw 2.4 X 22mm [place] 017 Ang Lock Strdrv - [id number] Hemostat 8 X 12.5cm 11-04-19 17 X 10mm Surgifoam Gelatin Sponge - [id number] Screw 2.5 X 4mm Ti 7 Schanz 14mm Thrd Body - [id number] Hemostat 2 X 14in 12-03-2016 Surgicel - [id number] Bone Infuse Bone 11-03-2016 Graft Sm - [id number] Cement Bone 12-24-2016 Radiopaque Simplex P Single Dose - [id number] Tube Sz8 Trach 08-26-2016 Cuffed - Qdg876415 Tube 22fr Feeding 08-26-2016 Gastrostomy Junior - Fdk106755 Screw 2.4 X 32mm Va 08-28-19 17 Lock Self-Tap Strdrv Rec - [id number] Screw 2.4 X 44mm Va 08-28-19 17 Lock Self-Tap Strdrv Rec - [id number] Screw 2.4 X 36mm 08-27-2016 Cortex Self-Tap T8 Strdrv Rec - [id number] Screw 2.4 X 38mm 08-27-2016 Cortex Self-Tap T8 Strdrv Rec - [id number] Wire K .045 X 5.5in 08-28-19 17 W/Wire Guide - [id number] Plate 2.4mm 2.7mm 08-27-2016 Va-Lock Mesh 5 X 12hls - [id number] Wire 15 X 150mm 08-27-2016 Compression Thrd - [id number] 1.6mm Compression 08-27-2016 Wires 20mm Thread Length, 1500mm Total Length Screw 2.4 X 18mm [place] 017 Ang Lock Strdrv - [id number] Screw 2.4 X 20mm [place] 017 Ang Lock Strdrv - Hqh558935 Screw 2.4 X 22mm [place] 017 Ang Lock Strdrv - [id number] Hemostat 8 X 12.5cm 11-04-19 17 X 10mm Surgifoam Gelatin Sponge - [id number] Screw 2.5 X 4mm Ti 7 Schanz 14mm Thrd Body - Jdx1021170 Hemostat 2 X 14in 12-03-2016 Surgicel - [id number] Bone Infuse Bone 11-03-2016 Graft Sm - [id number] Cement Bone 12-24-2016 Radiopaque Simplex P Single Dose - [id number] Tube Sz8 Trach 08-26-2016 Cuffed - Coz302395 Tube 22fr Feeding 08-26-2016 Gastrostomy Junior - Bzy181687 Screw 2.4 X 32mm Va 08-28-19 17 Lock Self-Tap Strdrv Rec - [id number] Screw 2.4 X 44mm Va 08-28-19 17 Lock Self-Tap Strdrv Rec - [id number] Screw 2.4 X 36mm 08-27-2016 Cortex Self-Tap T8 Strdrv Rec - Hjm535360 Screw 2.4 X 38mm 08-27-2016 Cortex Self-Tap T8 Strdrv Rec - [id number] Wire K .045 X 5.5in 08-28-19 17 W/Wire Guide - [id number] Plate 2.4mm 2.7mm 08-27-2016 Va-Lock Mesh 5 X 12hls - [id number] Wire 15 X 150mm 08-27-2016 Compression Thrd - [id number] 1.6mm Compression 08-27-2016 Wires 20mm Thread Length, 1500mm Total Length Screw 2.4 X 18mm [place] 017 Ang Lock Strdrv - [id number] Screw 2.4 X 20mm [place] 017 Ang Lock Strdrv - Prr344776 Screw 2.4 X 22mm [place] 017 Ang Lock Strdrv - [id number] Hemostat 8 X 12.5cm 11-04-19 17 X 10mm Surgifoam Gelatin Sponge - [id number] Screw 2.5 X 4mm Ti 7 Schanz 14mm Thrd Body - [id number] Hemostat 2 X 14in 12-03-2016 Surgicel - [id number] Bone Infuse Bone 11-03-2016 Graft Sm - [id number] Cement Bone 12-24-2016 Radiopaque Simplex P Single Dose - Fwg3675767 Tube Sz8 Trach 08-26-2016 Cuffed - Bzx262884 Tube 22fr Feeding 08-26-2016 Gastrostomy Junior - Hpw174871 Screw 2.4 X 32mm Va 08-28-19 17 Lock Self-Tap Strdrv Rec - Jbq171070 Screw 2.4 X 44mm Va 08-28-19 17 Lock Self-Tap Strdrv Rec - Ywi638778 Screw 2.4 X 36mm 08-27-2016 Cortex Self-Tap T8 Strdrv Rec - Ouo027515 Screw 2.4 X 38mm 08-27-2016 Cortex Self-Tap T8 Strdrv Rec - Ysq383555 Wire K .045 X 5.5in 08-28-19 17 W/Wire Guide - [id number] Plate 2.4mm 2.7mm 08-27-2016 Va-Lock Mesh 5 X 12hls - [id number] Wire 15 X 150mm 08-27-2016 Compression Thrd - [id number] 1.6mm Compression 08-27-2016 Wires 20mm Thread Length, 1500mm Total Length Screw 2.4 X 18mm [place] 017 Ang Lock Strdrv - [id number] Screw 2.4 X 20mm [place] 017 Ang Lock Strdrv - Nkd965357 Screw 2.4 X 22mm [place] 017 Ang Lock Strdrv - [id number] Hemostat 8 X 12.5cm 11-04-19 17 X 10mm Surgifoam Gelatin Sponge - [id number] Screw 2.5 X 4mm Ti 7 Schanz 14mm Thrd Body - [id number] Hemostat 2 X 14in 12-03-2016 Surgicel - [id number] Bone Infuse Bone 11-03-2016 Graft Sm - [id number] Cement Bone 12-24-2016 Radiopaque Simplex P Single Dose - Ujy5651727 Tube Sz8 Trach 08-26-2016 Cuffed - Mti838375 Tube 22fr Feeding 08-26-2016 Gastrostomy Junior - Hxt119196 Screw 2.4 X 32mm Va 08-28-19 17 Lock Self-Tap Strdrv Rec - [id number] Screw 2.4 X 44mm Va 08-28-19 17 Lock Self-Tap Strdrv Rec - [id number] Screw 2.4 X 36mm 08-27-2016 Cortex Self-Tap T8 Strdrv Rec - [id number] Screw 2.4 X 38mm 08-27-2016 Cortex Self-Tap T8 Strdrv Rec - [id number] Wire K .045 X 5.5in 08-28-19 17 W/Wire Guide - [id number] Plate 2.4mm 2.7mm 08-27-2016 Va-Lock Mesh 5 X 12hls - [id number] Wire 15 X 150mm 08-27-2016 Compression Thrd - [id number] 1.6mm Compression 08-27-2016 Wires 20mm Thread Length, 1500mm Total Length Screw 2.4 X 18mm [place] 017 Ang Lock Strdrv - [id number] Screw 2.4 X 20mm [place] 017 Ang Lock Strdrv - Uvq042685 Screw 2.4 X 22mm [place] 017 Ang Lock Strdrv - [id number] Hemostat 8 X 12.5cm 11-04-19 17 X 10mm Surgifoam Gelatin Sponge - [id number] Screw 2.5 X 4mm Ti 7 Schanz 14mm Thrd Body - Wsg0948568 Hemostat 2 X 14in 12-03-2016 Surgicel - [id number] Bone Infuse Bone 11-03-2016 Graft Sm - [id number] Cement Bone 12-24-2016 Radiopaque Simplex P Single Dose - [id number] Tube Sz8 Trach 08-26-2016 Cuffed - Rhi071367 Tube 22fr Feeding 08-26-2016 Gastrostomy Junior - [id number] Screw 2.4 X 32mm Va 08-28-19 17 Lock Self-Tap Strdrv Rec - [id number] Screw 2.4 X 44mm Va 08-28-19 17 Lock Self-Tap Strdrv Rec - [id number] Screw 2.4 X 36mm 08-27-2016 Cortex Self-Tap T8 Strdrv Rec - [id number] Screw 2.4 X 38mm 08-27-2016 Cortex Self-Tap T8 Strdrv Rec - Bve517379 Wire K .045 X 5.5in 08-28-19 17 W/Wire Guide - [id number] Plate 2.4mm 2.7mm 08-27-2016 Va-Lock Mesh 5 X 12hls - Edi022616 Wire 15 X 150mm 08-27-2016 Compression Thrd - [id number] 1.6mm Compression 08-27-2016 Wires 20mm Thread Length, 1500mm Total Length Screw 2.4 X 18mm [place] 017 Ang Lock Strdrv - [id number] Screw 2.4 X 20mm [place] 017 Ang Lock Strdrv - Egm289811 Screw 2.4 X 22mm [place] 017 Ang Lock Strdrv - [id number] Hemostat 8 X 12.5cm 11-04-19 17 X 10mm Surgifoam Gelatin Sponge - Ads2153851 Screw 2.5 X 4mm Ti 7 Schanz 14mm Thrd Body - [id number] Hemostat 2 X 14in 12-03-2016 Surgicel - [id number] Bone Infuse Bone 11-03-2016 Graft Sm - [id number] Cement Bone 12-24-2016 Radiopaque Simplex P Single Dose - [id number] Tube Sz8 Trach 08-26-2016 Cuffed - Qbi909351 Tube 22fr Feeding 08-26-2016 Gastrostomy Junior - Cbi453080 Screw 2.4 X 32mm Va 08-28-19 17 Lock Self-Tap Strdrv Rec - [id number] Screw 2.4 X 44mm Va 08-28-19 17 Lock Self-Tap Strdrv Rec - Ezq444249 Screw 2.4 X 36mm 08-27-2016 Cortex Self-Tap T8 Strdrv Rec - [id number] Screw 2.4 X 38mm 08-27-2016 Cortex Self-Tap T8 Strdrv Rec - Iqf282365 Wire K .045 X 5.5in 08-28-19 17 W/Wire Guide - [id number] Plate 2.4mm 2.7mm 08-27-2016 Va-Lock Mesh 5 X 12hls - [id number] Wire 15 X 150mm 08-27-2016 Compression Thrd - [id number] 1.6mm Compression 08-27-2016 Wires 20mm Thread Length, 1500mm Total Length Screw 2.4 X 18mm [place] 017 Ang Lock Strdrv - [id number] Screw 2.4 X 20mm [place] 017 Ang Lock Strdrv - [id number] Screw 2.4 X 22mm [place] 017 Ang Lock Strdrv - [id number] Hemostat 8 X 12.5cm 11-04-19 17 X 10mm Surgifoam Gelatin Sponge - Dgi7808464 Screw 2.5 X 4mm Ti 7 Schanz 14mm Thrd Body - [id number] Hemostat 2 X 14in 12-03-2016 Surgicel - [id number] Bone Infuse Bone 11-03-2016 Graft Sm - Hvq2014422 Cement Bone 12-24-2016 Radiopaque Simplex P Single Dose - [id number] Tube Sz8 Trach 08-26-2016 Cuffed - [id number] Tube 22fr Feeding 08-26-2016 Gastrostomy Junior - Csc777244 Screw 2.4 X 32mm Va 08-28-19 17 Lock Self-Tap Strdrv Rec - [id number] Screw 2.4 X 44mm Va 08-28-19 17 Lock Self-Tap Strdrv Rec - [id number] Screw 2.4 X 36mm 08-27-2016 Cortex Self-Tap T8 Strdrv Rec - Jyp367849 Screw 2.4 X 38mm 08-27-2016 Cortex Self-Tap T8 Strdrv Rec - [id number] Wire K .045 X 5.5in 08-28-19 17 W/Wire Guide - [id number] Plate 2.4mm 2.7mm 08-27-2016 Va-Lock Mesh 5 X 12hls - [id number] Wire 15 X 150mm 08-27-2016 Compression Thrd - [id number] 1.6mm Compression 08-27-2016 Wires 20mm Thread Length, 1500mm Total Length Screw 2.4 X 18mm [place] 017 Ang Lock Strdrv - [id number] Screw 2.4 X 20mm [place] 017 Ang Lock Strdrv - [id number] Screw 2.4 X 22mm [place] 017 Ang Lock Strdrv - Idy048713 Hemostat 8 X 12.5cm 11-04-19 17 X 10mm Surgifoam Gelatin Sponge - [id number] Screw 2.5 X 4mm Ti 7 Schanz 14mm Thrd Body - [id number] Hemostat 2 X 14in 12-03-2016 Surgicel - [id number] Bone Infuse Bone 11-03-2016 Graft Sm - [id number] Cement Bone 12-24-2016 Radiopaque Simplex P Single Dose - Zzl0063045 Tube Sz8 Trach 08-26-2016 Cuffed - Qiw534430 Tube 22fr Feeding 08-26-2016 Gastrostomy Junior - [id number] Screw 2.4 X 32mm Va 08-28-19 17 Lock Self-Tap Strdrv Rec - [id number] Screw 2.4 X 44mm Va 08-28-19 17 Lock Self-Tap Strdrv Rec - Lqh367260 Screw 2.4 X 36mm 08-27-2016 Cortex Self-Tap T8 Strdrv Rec - [id number] Screw 2.4 X 38mm 08-27-2016 Cortex Self-Tap T8 Strdrv Rec - [id number] Wire K .045 X 5.5in 08-28-19 17 W/Wire Guide - [id number] Plate 2.4mm 2.7mm 08-27-2016 Va-Lock Mesh 5 X 12hls - Dqm023386 Wire 15 X 150mm 08-27-2016 Compression Thrd - [id number] 1.6mm Compression 08-27-2016 Wires 20mm Thread Length, 1500mm Total Length Screw 2.4 X 18mm [place] 017 Ang Lock Strdrv - [id number] Screw 2.4 X 20mm [place] 017 Ang Lock Strdrv - [id number] Screw 2.4 X 22mm [place] 017 Ang Lock Strdrv - Nzl757658 Hemostat 8 X 12.5cm 11-04-19 17 X 10mm Surgifoam Gelatin Sponge - [id number] Screw 2.5 X 4mm Ti 7 Schanz 14mm Thrd Body - [id number] Hemostat 2 X 14in 12-03-2016 Surgicel - [id number] Bone Infuse Bone 11-03-2016 Graft Sm - [id number] Cement Bone 12-24-2016 Radiopaque Simplex P Single Dose - Hxm9877671 Tube Sz8 Trach 08-26-2016 Cuffed - Xns246351 Tube 22fr Feeding 08-26-2016 Gastrostomy Junior - [id number] Screw 2.4 X 32mm Va 08-28-19 17 Lock Self-Tap Strdrv Rec - [id number] Screw 2.4 X 44mm Va 08-28-19 17 Lock Self-Tap Strdrv Rec - [id number] Screw 2.4 X 36mm 08-27-2016 Cortex Self-Tap T8 Strdrv Rec - Ecl015884 Screw 2.4 X 38mm 08-27-2016 Cortex Self-Tap T8 Strdrv Rec - Mvj586903 Wire K .045 X 5.5in 08-28-19 17 W/Wire Guide - [id number] Plate 2.4mm 2.7mm 08-27-2016 Va-Lock Mesh 5 X 12hls - Zfa732336 Wire 15 X 150mm 08-27-2016 Compression Thrd - [id number] 1.6mm Compression 08-27-2016 Wires 20mm Thread Length, 1500mm Total Length Screw 2.4 X 18mm [place] 017 Ang Lock Strdrv - [id number] Screw 2.4 X 20mm [place] 017 Ang Lock Strdrv - Vsr286165 Screw 2.4 X 22mm [place] 017 Ang Lock Strdrv - Vpm682151 Hemostat 8 X 12.5cm 11-04-19 17 X 10mm Surgifoam Gelatin Sponge - [id number] Screw 2.5 X 4mm Ti 7 Schanz 14mm Thrd Body - [id number] Hemostat 2 X 14in 12-03-2016 Surgicel - [id number] Bone Infuse Bone 11-03-2016 Graft Sm - [id number] Bone Infuse Bone 05-25-2017 Graft Xsm - [id number] Cement Bone 12-24-2016 Radiopaque Simplex P Single Dose - Jld0189340 Tube Sz8 Trach 08-26-2016 Cuffed - [id number] Tube 22fr Feeding 08-26-2016 Gastrostomy Junior - [id number] Screw 2.4 X 32mm Va 08-28-19 17 Lock Self-Tap Strdrv Rec - [id number] Screw 2.4 X 44mm Va 08-28-19 17 Lock Self-Tap Strdrv Rec - [id number] Screw 2.4 X 36mm 08-27-2016 Cortex Self-Tap T8 Strdrv Rec - Szm087324 Screw 2.4 X 38mm 08-27-2016 Cortex Self-Tap T8 Strdrv Rec - [id number] Wire K .045 X 5.5in 08-28-19 17 W/Wire Guide - [id number] Plate 2.4mm 2.7mm 08-27-2016 Va-Lock Mesh 5 X 12hls - [id number] Wire 15 X 150mm 08-27-2016 Compression Thrd - [id number] 1.6mm Compression 08-27-2016 Wires 20mm Thread Length, 1500mm Total Length Screw 2.4 X 18mm [place] 017 Ang Lock Strdrv - [id number] Screw 2.4 X 20mm [place] 017 Ang Lock Strdrv - [id number] Screw 2.4 X 22mm [place] 017 Ang Lock Strdrv - [id number] Hemostat 8 X 12.5cm 11-04-19 17 X 10mm Surgifoam Gelatin Sponge - [id number] Screw 2.5 X 4mm Ti 7 Schanz 14mm Thrd Body - [id number] Hemostat 2 X 14in 12-03-2016 Surgicel - Oee3973934 Hemostat 8 X 6.25cm 05-25-19 18 X 10mm Surgifoam Gelatin Sponge - Sxm0369833 Screw 2 X 10mm Cross 018 Pin Locking - [id number] Screw 2 X 14mm Cross 018 Pin Locking - Aqm8335667 Plate 11hl Str Recon 018 - [id number] Bone Infuse Bone 11-03-2016 Graft Sm - Svn6138887 Cement Bone 12-24-2016 Radiopaque Simplex P Single Dose - [id number] Tube Sz8 Trach 08-26-2016 Cuffed - [id number] Tube 22fr Feeding 08-26-2016 Gastrostomy Junior - Fok456373 Screw 2.4 X 32mm Va 08-28-19 17 Lock Self-Tap Strdrv Rec - [id number] Screw 2.4 X 44mm Va 08-28-19 17 Lock Self-Tap Strdrv Rec - [id number] Screw 2.4 X 36mm 08-27-2016 Cortex Self-Tap T8 Strdrv Rec - [id number] Screw 2.4 X 38mm 08-27-2016 Cortex Self-Tap T8 Strdrv Rec - [id number] Wire K .045 X 5.5in 08-28-19 17 W/Wire Guide - [id number] Plate 2.4mm 2.7mm 08-27-2016 Va-Lock Mesh 5 X 12hls - [id number] Wire 15 X 150mm 08-27-2016 Compression Thrd - [id number] 1.6mm Compression 08-27-2016 Wires 20mm Thread Length, 1500mm Total Length Screw 2.4 X 18mm [place] 017 Ang Lock Strdrv - [id number] Screw 2.4 X 20mm [place] 017 Ang Lock Strdrv - [id number] Bone Infuse Bone 11-03-2016 Graft Sm - [id number] Hemostat 8 X 12.5cm 11-04-19 17 X 10mm Surgifoam Gelatin Sponge - [id number] Screw 2.5 X 4mm Ti 7 Schanz 14mm Thrd Body - Btj6852622 Hemostat 2 X 14in 12-03-2016 Surgicel - [id number] Bone Infuse Bone 11-03-2016 Graft Sm - [id number] Cement Bone 12-24-2016 Radiopaque Simplex P Single Dose - [id number] Tube Sz8 Trach 08-26-2016 Cuffed - Vmu704366 Tube 22fr Feeding 08-26-2016 Gastrostomy Junior - Vqw637997 Screw 2.4 X 32mm Va 08-28-19 17 Lock Self-Tap Strdrv Rec - [id number] Screw 2.4 X 44mm Va 08-28-19 17 Lock Self-Tap Strdrv Rec - [id number] Screw 2.4 X 36mm 08-27-2016 Cortex Self-Tap T8 Strdrv Rec - [id number] Screw 2.4 X 38mm 08-27-2016 Cortex Self-Tap T8 Strdrv Rec - [id number] Wire K .045 X 5.5in 08-28-19 17 W/Wire Guide - [id number] Plate 2.4mm 2.7mm 08-27-2016 Va-Lock Mesh 5 X 12hls - [id number] Wire 15 X 150mm 08-27-2016 Compression Thrd - [id number] 1.6mm Compression 08-27-2016 Wires 20mm Thread Length, 1500mm Total Length Screw 2.4 X 18mm [place] 017 Ang Lock Strdrv - [id number] Screw 2.4 X 20mm [place] 017 Ang Lock Strdrv - [id number] Screw 2.4 X 22mm [place] 017 Ang Lock Strdrv - [id number] Hemostat 8 X 12.5cm 11-04-19 17 X 10mm Surgifoam Gelatin Sponge - Mzl0988867 Screw 2.5 X 4mm Ti 7 Schanz 14mm Thrd Body - Amn0043011 Hemostat 2 X 14in 12-03-2016 Surgicel - [id number] Bone Infuse Bone 11-03-2016 Graft Sm - [id number] Cement Bone 12-24-2016 Radiopaque Simplex P Single Dose - [id number] Tube Sz8 Trach 08-26-2016 Cuffed - Srp959571 Tube 22fr Feeding 08-26-2016 Gastrostomy Junior - [id number] Screw 2.4 X 32mm Va 08-28-19 17 Lock Self-Tap Strdrv Rec - [id number] Screw 2.4 X 44mm Va 08-28-19 17 Lock Self-Tap Strdrv Rec - [id number] Screw 2.4 X 36mm 08-27-2016 Cortex Self-Tap T8 Strdrv Rec - [id number] Screw 2.4 X 38mm 08-27-2016 Cortex Self-Tap T8 Strdrv Rec - Gbq444898 Wire K .045 X 5.5in 08-28-19 17 W/Wire Guide - [id number] Plate 2.4mm 2.7mm 08-27-2016 Va-Lock Mesh 5 X 12hls - [id number] Wire 15 X 150mm 08-27-2016 Compression Thrd - [id number] 1.6mm Compression 08-27-2016 Wires 20mm Thread Length, 1500mm Total Length Screw 2.4 X 18mm [place] 017 Ang Lock Strdrv - [id number] Screw 2.4 X 20mm [place] 017 Ang Lock Strdrv - [id number] Screw 2.4 X 22mm [place] 017 Ang Lock Strdrv - [id number] Hemostat 8 X 12.5cm 11-04-19 17 X 10mm Surgifoam Gelatin Sponge - [id number] Screw 2.5 X 4mm Ti 7 Schanz 14mm Thrd Body - [id number] Hemostat 2 X 14in 12-03-2016 Surgicel - [id number] Bone Infuse Bone 11-03-2016 Graft Sm - [id number] Cement Bone 12-24-2016 Radiopaque Simplex P Single Dose - [id number] Tube Sz8 Trach 08-26-2016 Cuffed - [id number] Tube 22fr Feeding 08-26-2016 Gastrostomy Junior - [id number] Screw 2.4 X 32mm Va 08-28-19 17 Lock Self-Tap Strdrv Rec - [id number] Screw 2.4 X 44mm Va 08-28-19 17 Lock Self-Tap Strdrv Rec - [id number] Screw 2.4 X 36mm 08-27-2016 Cortex Self-Tap T8 Strdrv Rec - [id number] Screw 2.4 X 38mm 08-27-2016 Cortex Self-Tap T8 Strdrv Rec - [id number] Wire K .045 X 5.5in 08-28-19 17 W/Wire Guide - [id number] Plate 2.4mm 2.7mm 08-27-2016 Va-Lock Mesh 5 X 12hls - [id number] Wire 15 X 150mm 08-27-2016 Compression Thrd - [id number] 1.6mm Compression 08-27-2016 Wires 20mm Thread Length, 1500mm Total Length Screw 2.4 X 18mm [place] 017 Ang Lock Strdrv - [id number] Screw 2.4 X 20mm [place] 017 Ang Lock Strdrv - [id number] Screw 2.4 X 22mm [place] 017 Ang Lock Strdrv - [id number] Hemostat 8 X 12.5cm 11-04-19 17 X 10mm Surgifoam Gelatin Sponge - [id number] Screw 2.5 X 4mm Ti 7 Schanz 14mm Thrd Body - [id number] Hemostat 2 X 14in 12-03-2016 Surgicel - [id number] Bone Infuse Bone 11-03-2016 Graft Sm - [id number] Bone Infuse Bone 05-25-2017 Graft Xsm - [id number] Cement Bone 12-24-2016 Radiopaque Simplex P Single Dose - [id number] Tube Sz8 Trach 08-26-2016 Cuffed - [id number] Tube 22fr Feeding 08-26-2016 Gastrostomy Junior - [id number] Screw 2.4 X 32mm Va 08-28-19 17 Lock Self-Tap Strdrv Rec - [id number] Screw 2.4 X 44mm Va 08-28-19 17 Lock Self-Tap Strdrv Rec - [id number] Screw 2.4 X 36mm 08-27-2016 Cortex Self-Tap T8 Strdrv Rec - [id number] Screw 2.4 X 38mm 08-27-2016 Cortex Self-Tap T8 Strdrv Rec - [id number] Wire K .045 X 5.5in 08-28-19 17 W/Wire Guide - [id number] Plate 2.4mm 2.7mm 08-27-2016 Va-Lock Mesh 5 X 12hls - [id number] Wire 15 X 150mm 08-27-2016 Compression Thrd - [id number] 1.6mm Compression 08-27-2016 Wires 20mm Thread Length, 1500mm Total Length Screw 2.4 X 18mm [place] 017 Ang Lock Strdrv - [id number] Screw 2.4 X 20mm [place] 017 Ang Lock Strdrv - [id number] Screw 2.4 X 22mm [place] 017 Ang Lock Strdrv - [id number] Hemostat 8 X 12.5cm 11-04-19 17 X 10mm Surgifoam Gelatin Sponge - [id number] Screw 2.5 X 4mm Ti 7 Schanz 14mm Thrd Body - [id number] Hemostat 2 X 14in 12-03-2016 Surgicel - [id number] Hemostat 8 X 6.25cm 05-25-19 18 X 10mm Surgifoam Gelatin Sponge - [id number] Screw 2 X 10mm Cross 018 Pin Locking - [id number] Screw 2 X 14mm Cross 018 Pin Locking - [id number] Plate 11hl Str Recon 018 - [id number] Bone Infuse Bone 11-03-2016 Graft Sm - [id number] Bone Infuse Bone 05-25-2017 Graft Xsm - [id number] Cement Bone 12-24-2016 Radiopaque Simplex P Single Dose - [id number] Tube Sz8 Trach 08-26-2016 Cuffed - [id number] Tube 22fr Feeding 08-26-2016 Gastrostomy Junior - [id number] Screw 2.4 X 32mm Va 08-28-19 17 Lock Self-Tap Strdrv Rec - [id number] Screw 2.4 X 44mm Va 08-28-19 17 Lock Self-Tap Strdrv Rec - [id number] Screw 2.4 X 36mm 08-27-2016 Cortex Self-Tap T8 Strdrv Rec - [id number] Screw 2.4 X 38mm 08-27-2016 Cortex Self-Tap T8 Strdrv Rec - [id number] Wire K .045 X 5.5in 08-28-19 17 W/Wire Guide - [id number] Plate 2.4mm 2.7mm 08-27-2016 Va-Lock Mesh 5 X 12hls - [id number] Wire 15 X 150mm 08-27-2016 Compression Thrd - [id number] 1.6mm Compression 08-27-2016 Wires 20mm Thread Length, 1500mm Total Length Screw 2.4 X 18mm [place] 017 Ang Lock Strdrv - [id number] Screw 2.4 X 20mm [place] 017 Ang Lock Strdrv - [id number] Screw 2.4 X 22mm [place] 017 Ang Lock Strdrv - [id number] Hemostat 8 X 12.5cm 11-04-19 17 X 10mm Surgifoam Gelatin Sponge - [id number] Screw 2.5 X 4mm Ti 7 Schanz 14mm Thrd Body - [id number] Hemostat 2 X 14in 12-03-2016 Surgicel - [id number] Hemostat 8 X 6.25cm 05-25-19 18 X 10mm Surgifoam Gelatin Sponge - [id number] Screw 2 X 10mm Cross 018 Pin Locking - [id number] Screw 2 X 14mm Cross 018 Pin Locking - [id number] Plate 11hl Str Recon 018 - [id number] Bone Infuse Bone 11-03-2016 Graft Sm - [id number] Bone Infuse Bone 05-25-2017 Graft Xsm - [id number] Cement Bone 12-24-2016 Radiopaque Simplex P Single Dose - [id number] Tube Sz8 Trach 08-26-2016 Cuffed - [id number] Tube 22fr Feeding 08-26-2016 Gastrostomy Junior - [id number] Screw 2.4 X 32mm Va 08-28-19 17 Lock Self-Tap Strdrv Rec - [id number] Screw 2.4 X 44mm Va 08-28-19 17 Lock Self-Tap Strdrv Rec - [id number] Screw 2.4 X 36mm 08-27-2016 Cortex Self-Tap T8 Strdrv Rec - [id number] Screw 2.4 X 38mm 08-27-2016 Cortex Self-Tap T8 Strdrv Rec - [id number] Wire K .045 X 5.5in 08-28-19 17 W/Wire Guide - [id number] Plate 2.4mm 2.7mm 08-27-2016 Va-Lock Mesh 5 X 12hls - [id number] Wire 15 X 150mm 08-27-2016 Compression Thrd - [id number] 1.6mm Compression 08-27-2016 Wires 20mm Thread Length, 1500mm Total Length Screw 2.4 X 18mm [place] 017 Ang Lock Strdrv - [id number] Screw 2.4 X 20mm [place] 017 Ang Lock Strdrv - [id number] Screw 2.4 X 22mm [place] 017 Ang Lock Strdrv - [id number] Hemostat 8 X 12.5cm 11-04-19 17 X 10mm Surgifoam Gelatin Sponge - [id number] Screw 2.5 X 4mm Ti 7 Schanz 14mm Thrd Body - [id number] Hemostat 2 X 14in 12-03-2016 Surgicel - [id number] Hemostat 8 X 6.25cm 05-25-19 18 X 10mm Surgifoam Gelatin Sponge - [id number] Screw 2 X 10mm Cross 018 Pin Locking - [id number] Screw 2 X 14mm Cross 018 Pin Locking - [id number] Plate 11hl Str Recon 018 - [id number] Bone Infuse Bone 11-03-2016 Graft Sm - [id number] Bone Infuse Bone 05-25-2017 Graft Xsm - [id number] Cement Bone 12-24-2016 Radiopaque Simplex P Single Dose - [id number] Tube Sz8 Trach 08-26-2016 Cuffed - [id number] Tube 22fr Feeding 08-26-2016 Gastrostomy Junior - [id number] Screw 2.4 X 32mm Va 08-28-19 17 Lock Self-Tap Strdrv Rec - [id number] Screw 2.4 X 44mm Va 08-28-19 17 Lock Self-Tap Strdrv Rec - [id number] Screw 2.4 X 36mm 08-27-2016 Cortex Self-Tap T8 Strdrv Rec - [id number] Screw 2.4 X 38mm 08-27-2016 Cortex Self-Tap T8 Strdrv Rec - [id number] Wire K .045 X 5.5in 08-28-19 17 W/Wire Guide - [id number] Plate 2.4mm 2.7mm 08-27-2016 Va-Lock Mesh 5 X 12hls - [id number] Wire 15 X 150mm 08-27-2016 Compression Thrd - [id number] 1.6mm Compression 08-27-2016 Wires 20mm Thread Length, 1500mm Total Length Screw 2.4 X 18mm [place] 017 Ang Lock Strdrv - [id number] Screw 2.4 X 20mm [place] 017 Ang Lock Strdrv - [id number] Screw 2.4 X 22mm [place] 017 Ang Lock Strdrv - [id number] Hemostat 8 X 12.5cm 11-04-19 17 X 10mm Surgifoam Gelatin Sponge - [id number] Screw 2.5 X 4mm Ti 7 Schanz 14mm Thrd Body - [id number] Hemostat 2 X 14in 12-03-2016 Surgicel - [id number] Hemostat 8 X 6.25cm 05-25-19 18 X 10mm Surgifoam Gelatin Sponge - [id number] Screw 2 X 10mm Cross 018 Pin Locking - [id number] Screw 2 X 14mm Cross 018 Pin Locking - [id number] Plate 11hl Str Recon 018 - [id number] Bone Infuse Bone 11-03-2016 Graft Sm - [id number] Bone Infuse Bone 05-25-2017 Graft Xsm - [id number] Cement Bone 12-24-2016 Radiopaque Simplex P Single Dose - [id number] Tube Sz8 Trach 08-26-2016 Cuffed - [id number] Tube 22fr Feeding 08-26-2016 Gastrostomy Junior - Vwk056433 Screw 2.4 X 32mm Va 08-28-19 17 Lock Self-Tap Strdrv Rec - [id number] Screw 2.4 X 44mm Va 08-28-19 17 Lock Self-Tap Strdrv Rec - [id number] Screw 2.4 X 36mm 08-27-2016 Cortex Self-Tap T8 Strdrv Rec - [id number] Screw 2.4 X 38mm 08-27-2016 Cortex Self-Tap T8 Strdrv Rec - Yxw293291 Wire K .045 X 5.5in 08-28-19 17 W/Wire Guide - [id number] Plate 2.4mm 2.7mm 08-27-2016 Va-Lock Mesh 5 X 12hls - [id number] Wire 15 X 150mm 08-27-2016 Compression Thrd - [id number] 1.6mm Compression 08-27-2016 Wires 20mm Thread Length, 1500mm Total Length Screw 2.4 X 18mm [place] 017 Ang Lock Strdrv - [id number] Screw 2.4 X 20mm [place] 017 Ang Lock Strdrv - [id number] Screw 2.4 X 22mm [place] 017 Ang Lock Strdrv - [id number] Hemostat 8 X 12.5cm 11-04-19 17 X 10mm Surgifoam Gelatin Sponge - [id number] Screw 2.5 X 4mm Ti 7 Schanz 14mm Thrd Body - [id number] Hemostat 2 X 14in 12-03-2016 Surgicel - [id number] Hemostat 8 X 6.25cm 05-25-19 18 X 10mm Surgifoam Gelatin Sponge - [id number] Screw 2 X 10mm Cross 018 Pin Locking - [id number] Screw 2 X 14mm Cross 018 Pin Locking - [id number] Plate 11hl Str Recon 018 - [id number] Bone Infuse Bone 11-03-2016 Graft Sm - [id number] Bone Infuse Bone 05-25-2017 Graft Xsm - [id number] Cement Bone 12-24-2016 Radiopaque Simplex P Single Dose - [id number] Tube Sz8 Trach 08-26-2016 Cuffed - [id number] Tube 22fr Feeding 08-26-2016 Gastrostomy Junior - [id number] Screw 2.4 X 32mm Va 08-28-19 17 Lock Self-Tap Strdrv Rec - [id number] Screw 2.4 X 44mm Va 08-28-19 17 Lock Self-Tap Strdrv Rec - [id number] Screw 2.4 X 36mm 08-27-2016 Cortex Self-Tap T8 Strdrv Rec - Jzo031725 Screw 2.4 X 38mm 08-27-2016 Cortex Self-Tap T8 Strdrv Rec - Epq657936 Wire K .045 X 5.5in 08-28-19 17 W/Wire Guide - [id number] Plate 2.4mm 2.7mm 08-27-2016 Va-Lock Mesh 5 X 12hls - [id number] Wire 15 X 150mm 08-27-2016 Compression Thrd - [id number] 1.6mm Compression 08-27-2016 Wires 20mm Thread Length, 1500mm Total Length Screw 2.4 X 18mm [place] 017 Ang Lock Strdrv - Dls751515 Screw 2.4 X 20mm [place] 017 Ang Lock Strdrv - Rxu063320 Screw 2.4 X 22mm [place] 017 Ang Lock Strdrv - [id number] Hemostat 8 X 12.5cm 11-04-19 17 X 10mm Surgifoam Gelatin Sponge - [id number] Screw 2.5 X 4mm Ti 7 Schanz 14mm Thrd Body - [id number] Hemostat 2 X 14in 12-03-2016 Surgicel - [id number] Hemostat 8 X 6.25cm 05-25-19 18 X 10mm Surgifoam Gelatin Sponge - Gaw3983226 Screw 2 X 10mm Cross 018 Pin Locking - [id number] Screw 2 X 14mm Cross 018 Pin Locking - [id number] Plate 11hl Str Recon 018 - [id number] Bone Infuse Bone 11-03-2016 Graft Sm - [id number] Cement Bone 12-24-2016 Radiopaque Simplex P Single Dose - [id number] Tube Sz8 Trach 08-26-2016 Cuffed - Zqg897534 Tube 22fr Feeding 08-26-2016 Gastrostomy Junior - Bgy593265 Screw 2.4 X 32mm Va 08-28-19 17 Lock Self-Tap Strdrv Rec - [id number] Screw 2.4 X 44mm Va 08-28-19 17 Lock Self-Tap Strdrv Rec - [id number] Screw 2.4 X 36mm 08-27-2016 Cortex Self-Tap T8 Strdrv Rec - [id number] Screw 2.4 X 38mm 08-27-2016 Cortex Self-Tap T8 Strdrv Rec - [id number] Wire K .045 X 5.5in 08-28-19 17 W/Wire Guide - [id number] Plate 2.4mm 2.7mm 08-27-2016 Va-Lock Mesh 5 X 12hls - [id number] Wire 15 X 150mm 08-27-2016 Compression Thrd - [id number] 1.6mm Compression 08-27-2016 Wires 20mm Thread Length, 1500mm Total Length Screw 2.4 X 18mm [place] 017 Ang Lock Strdrv - [id number] Screw 2.4 X 20mm [place] 017 Ang Lock Strdrv - Jci277120 Screw 2.4 X 22mm [place] 017 Ang Lock Strdrv - [id number] Hemostat 8 X 12.5cm 11-04-19 17 X 10mm Surgifoam Gelatin Sponge - [id number] Screw 2.5 X 4mm Ti 7 Schanz 14mm Thrd Body - [id number] Hemostat 2 X 14in 12-03-2016 Surgicel - [id number] Bone Infuse Bone 11-03-2016 Graft Sm - Mqh8385849 Bone Infuse Bone 05-25-2017 Graft Xsm - Tcq7280697 Cement Bone 12-24-2016 Radiopaque Simplex P Single Dose - Cdw8643364 Tube Sz8 Trach 08-26-2016 Cuffed - Waw842356 Tube 22fr Feeding 08-26-2016 Gastrostomy Junior - Ttn920678 Screw 2.4 X 32mm Va 08-28-19 17 Lock Self-Tap Strdrv Rec - Csa067391 Screw 2.4 X 44mm Va 08-28-19 17 Lock Self-Tap Strdrv Rec - [id number] Screw 2.4 X 36mm 08-27-2016 Cortex Self-Tap T8 Strdrv Rec - [id number] Screw 2.4 X 38mm 08-27-2016 Cortex Self-Tap T8 Strdrv Rec - Uvz580206 Wire K .045 X 5.5in 08-28-19 17 W/Wire Guide - [id number] Plate 2.4mm 2.7mm 08-27-2016 Va-Lock Mesh 5 X 12hls - [id number] Wire 15 X 150mm 08-27-2016 Compression Thrd - [id number] 1.6mm Compression 08-27-2016 Wires 20mm Thread Length, 1500mm Total Length Screw 2.4 X 18mm [place] 017 Ang Lock Strdrv - [id number] Screw 2.4 X 20mm [place] 017 Ang Lock Strdrv - Cks167775 Screw 2.4 X 22mm [place] 017 Ang Lock Strdrv - [id number] Hemostat 8 X 12.5cm 11-04-19 17 X 10mm Surgifoam Gelatin Sponge - Xhl1156315 Screw 2.5 X 4mm Ti 7 Schanz 14mm Thrd Body - Eqt4715057 Hemostat 2 X 14in 12-03-2016 Surgicel - [id number] Hemostat 8 X 6.25cm 05-25-19 18 X 10mm Surgifoam Gelatin Sponge - Gjy3476428 Screw 2 X 10mm Cross 018 Pin Locking - [id number] Screw 2 X 14mm Cross 018 Pin Locking - [id number] Plate 11hl Str Recon 018 - [id number] Bone Infuse Bone 11-03-2016 Graft Sm - [id number] Bone Infuse Bone 05-25-2017 Graft Xsm - [id number] Bone Infuse Bone 05-12-2018 Graft Sm - [id number] Cement Bone 12-24-2016 Radiopaque Simplex P Single Dose - [id number] Tube Sz8 Trach 08-26-2016 Cuffed - Jxd820967 Tube 22fr Feeding 08-26-2016 Gastrostomy Junior - Pje236100 Screw 2.4 X 32mm Va 08-28-19 17 Lock Self-Tap Strdrv Rec - [id number] Screw 2.4 X 44mm Va 08-28-19 17 Lock Self-Tap Strdrv Rec - Edo962330 Screw 2.4 X 36mm 08-27-2016 Cortex Self-Tap T8 Strdrv Rec - Wqj967572 Screw 2.4 X 38mm 08-27-2016 Cortex Self-Tap T8 Strdrv Rec - [id number] Wire K .045 X 5.5in 08-28-19 17 W/Wire Guide - [id number] Plate 2.4mm 2.7mm 08-27-2016 Va-Lock Mesh 5 X 12hls - [id number] Wire 15 X 150mm 08-27-2016 Compression Thrd - [id number] 1.6mm Compression 08-27-2016 Wires 20mm Thread Length, 1500mm Total Length Screw 2.4 X 18mm [place] 017 Ang Lock Strdrv - [id number] Screw 2.4 X 20mm [place] 017 Ang Lock Strdrv - Ppy360966 Screw 2.4 X 22mm [place] 017 Ang Lock Strdrv - [id number] Hemostat 8 X 12.5cm 11-04-19 17 X 10mm Surgifoam Gelatin Sponge - [id number] Screw 2.5 X 4mm Ti 7 Schanz 14mm Thrd Body - Jec1840576 Hemostat 2 X 14in 12-03-2016 Surgicel - [id number] Hemostat 8 X 6.25cm 05-25-19 18 X 10mm Surgifoam Gelatin Sponge - Yvb1432213 Plate 14hl Fracture 05-12-19 19 - [id number] Screw 2 X 14mm Cross 019 Pin Locking - [id number] Screw 2 X 10mm Cross 019 Pin Locking - [id number] Screw 2 X 8mm Cross 05-12-19 19 Pin Locking - Twz0529396 Screw 2 X 16mm Cross 019 Pin Locking - [id number] Screw 2 X 10mm Cross 018 Pin Locking - [id number] Screw 2 X 14mm Cross 018 Pin Locking - [id number] Plate 11hl Str Recon 018 - [id number] Bone Infuse Bone 11-03-2016 Graft Sm - Bfu8204736 Bone Infuse Bone 05-25-2017 Graft Xsm - [id number] Bone Infuse Bone 05-12-2018 Graft Sm - [id number] Cement Bone 12-24-2016 Radiopaque Simplex P Single Dose - Cff8969923 Tube Sz8 Trach 08-26-2016 Cuffed - Myd771521 Tube 22fr Feeding 08-26-2016 Gastrostomy Junior - Cjm891423 Screw 2.4 X 32mm Va 08-28-19 17 Lock Self-Tap Strdrv Rec - Wcx076808 Screw 2.4 X 44mm Va 08-28-19 17 Lock Self-Tap Strdrv Rec - [id number] Screw 2.4 X 36mm 08-27-2016 Cortex Self-Tap T8 Strdrv Rec - [id number] Screw 2.4 X 38mm 08-27-2016 Cortex Self-Tap T8 Strdrv Rec - [id number] Wire K .045 X 5.5in 08-28-19 17 W/Wire Guide - [id number] Plate 2.4mm 2.7mm 08-27-2016 Va-Lock Mesh 5 X 12hls - [id number] Wire 15 X 150mm 08-27-2016 Compression Thrd - [id number] 1.6mm Compression 08-27-2016 Wires 20mm Thread Length, 1500mm Total Length Screw 2.4 X 18mm [place] 017 Ang Lock Strdrv - Sqt585684 Screw 2.4 X 20mm [place] 017 Ang Lock Strdrv - Oxq361293 Screw 2.4 X 22mm [place] 017 Ang Lock Strdrv - [id number] Hemostat 8 X 12.5cm 11-04-19 17 X 10mm Surgifoam Gelatin Sponge - Xom9504212 Screw 2.5 X 4mm Ti 7 Schanz 14mm Thrd Body - Zrb1533395 Hemostat 2 X 14in 12-03-2016 Surgicel - Jhx3250900 Hemostat 8 X 6.25cm 05-25-19 18 X 10mm Surgifoam Gelatin Sponge - [id number] Plate 14hl Fracture 05-12-19 19 - [id number] Screw 2 X 14mm Cross 019 Pin Locking - [id number] Screw 2 X 10mm Cross 019 Pin Locking - Oqy0627440 Screw 2 X 8mm Cross 05-12-19 19 Pin Locking - [id number] Screw 2 X 16mm Cross 019 Pin Locking - [id number] Bone Infuse Bone 11-03-2016 Graft Sm - [id number] Bone Infuse Bone 05-25-2017 Graft Xsm - [id number] Bone Infuse Bone 05-12-2018 Graft Sm - [id number] Cement Bone 12-24-2016 Radiopaque Simplex P Single Dose - [id number] Tube Sz8 Trach 08-26-2016 Cuffed - [id number] Tube 22fr Feeding 08-26-2016 Gastrostomy Junior - Jzg286459 Screw 2.4 X 32mm Va 08-28-19 17 Lock Self-Tap Strdrv Rec - Nqo531385 Screw 2.4 X 44mm Va 08-28-19 17 Lock Self-Tap Strdrv Rec - [id number] Screw 2.4 X 36mm 08-27-2016 Cortex Self-Tap T8 Strdrv Rec - [id number] Screw 2.4 X 38mm 08-27-2016 Cortex Self-Tap T8 Strdrv Rec - Iam848991 Wire K .045 X 5.5in 08-28-19 17 W/Wire Guide - [id number] Plate 2.4mm 2.7mm 08-27-2016 Va-Lock Mesh 5 X 12hls - [id number] Wire 15 X 150mm 08-27-2016 Compression Thrd - [id number] 1.6mm Compression 08-27-2016 Wires 20mm Thread Length, 1500mm Total Length Screw 2.4 X 18mm [place] 017 Ang Lock Strdrv - [id number] Screw 2.4 X 20mm [place] 017 Ang Lock Strdrv - [id number] Screw 2.4 X 22mm [place] 017 Ang Lock Strdrv - [id number] Hemostat 8 X 12.5cm 11-04-19 17 X 10mm Surgifoam Gelatin Sponge - [id number] Screw 2.5 X 4mm Ti 7 Schanz 14mm Thrd Body - [id number] Hemostat 2 X 14in 12-03-2016 Surgicel - Prb7287975 Hemostat 8 X 6.25cm 05-25-19 18 X 10mm Surgifoam Gelatin Sponge - Fjg2916787 Screw 2.5 X 4mm Ti 9 Schanz 10mm Thrd Ramus - [id number] Screw 2.5 X 4mm Ti 9 Schanz 14mm Thrd Body - Czg3860491 Plate 14hl Fracture 05-12-19 19 - Xrj0452761 Screw 2 X 14mm Cross 019 Pin Locking - [id number] Screw 2 X 10mm Cross 019 Pin Locking - [id number] Screw 2 X 8mm Cross 05-12-19 19 Pin Locking - Nmu7082653 Screw 2 X 16mm Cross 019 Pin Locking - Itj7351497 Bone Infuse Bone 11-03-2016 Graft Sm - [id number] Bone Infuse Bone 05-25-2017 Graft Xsm - [id number] Bone Infuse Bone 05-12-2018 Graft Sm - [id number] Cement Bone 12-24-2016 Radiopaque Simplex P Single Dose - [id number] Tube Sz8 Trach 08-26-2016 Cuffed - Fqd313771 Tube 22fr Feeding 08-26-2016 Gastrostomy Junior - Kkv318241 Screw 2.4 X 32mm Va 08-28-19 17 Lock Self-Tap Strdrv Rec - [id number] Screw 2.4 X 44mm Va 08-28-19 17 Lock Self-Tap Strdrv Rec - Ykd541743 Screw 2.4 X 36mm 08-27-2016 Cortex Self-Tap T8 Strdrv Rec - [id number] Screw 2.4 X 38mm 08-27-2016 Cortex Self-Tap T8 Strdrv Rec - Kfz378487 Wire K .045 X 5.5in 08-28-19 17 W/Wire Guide - [id number] Plate 2.4mm 2.7mm 08-27-2016 Va-Lock Mesh 5 X 12hls - [id number] Wire 15 X 150mm 08-27-2016 Compression Thrd - [id number] 1.6mm Compression 08-27-2016 Wires 20mm Thread Length, 1500mm Total Length Screw 2.4 X 18mm [place] 017 Ang Lock Strdrv - [id number] Screw 2.4 X 20mm [place] 017 Ang Lock Strdrv - [id number] Screw 2.4 X 22mm [place] 017 Ang Lock Strdrv - [id number] Hemostat 8 X 12.5cm 11-04-19 17 X 10mm Surgifoam Gelatin Sponge - [id number] Screw 2.5 X 4mm Ti 7 Schanz 14mm Thrd Body - [id number] Hemostat 2 X 14in 12-03-2016 Surgicel - [id number] Hemostat 8 X 6.25cm 05-25-19 18 X 10mm Surgifoam Gelatin Sponge - Uvq0959027 Screw 2.5 X 4mm Ti 9 Schanz 10mm Thrd Ramus - [id number] Screw 2.5 X 4mm Ti 9 Schanz 14mm Thrd Body - [id number] Bone Infuse Bone 11-03-2016 Graft Sm - Jge6324319 Bone Infuse Bone 05-25-2017 Graft Xsm - [id number] Bone Infuse Bone 05-12-2018 Graft Sm - Qro3063281 Cement Bone 12-24-2016 Radiopaque Simplex P Single Dose - [id number] Tube Sz8 Trach 08-26-2016 Cuffed - Moq164595 Tube 22fr Feeding 08-26-2016 Gastrostomy Junior - Sgi581406 Screw 2.4 X 32mm Va 08-28-19 17 Lock Self-Tap Strdrv Rec - [id number] Screw 2.4 X 44mm Va 08-28-19 17 Lock Self-Tap Strdrv Rec - [id number] Screw 2.4 X 36mm 08-27-2016 Cortex Self-Tap T8 Strdrv Rec - [id number] Screw 2.4 X 38mm 08-27-2016 Cortex Self-Tap T8 Strdrv Rec - Ozw132750 Wire K .045 X 5.5in 08-28-19 17 W/Wire Guide - [id number] Plate 2.4mm 2.7mm 08-27-2016 Va-Lock Mesh 5 X 12hls - Eqh972528 Wire 15 X 150mm 08-27-2016 Compression Thrd - [id number] 1.6mm Compression 08-27-2016 Wires 20mm Thread Length, 1500mm Total Length Screw 2.4 X 18mm [place] 017 Ang Lock Strdrv - [id number] Screw 2.4 X 20mm [place] 017 Ang Lock Strdrv - Wvz343544 Screw 2.4 X 22mm [place] 017 Ang Lock Strdrv - [id number] Hemostat 8 X 12.5cm 11-04-19 17 X 10mm Surgifoam Gelatin Sponge - Zkl6498210 Screw 2.5 X 4mm Ti 7 Schanz 14mm Thrd Body - Iip3163318 Hemostat 2 X 14in 12-03-2016 Surgicel - [id number] Hemostat 8 X 6.25cm 05-25-19 18 X 10mm Surgifoam Gelatin Sponge - Frj0083410 Screw 2.5 X 4mm Ti 9 Schanz 10mm Thrd Ramus - [id number] Screw 2.5 X 4mm Ti 9 Schanz 14mm Thrd Body - [id number] Bone Infuse Bone 11-03-2016 Graft Sm - [id number] Bone Infuse Bone 05-25-2017 Graft Xsm - Jsj0243088 Bone Infuse Bone 05-12-2018 Graft Sm - [id number] Cement Bone 12-24-2016 Radiopaque Simplex P Single Dose - [id number] Tube Sz8 Trach 08-26-2016 Cuffed - [id number] Tube 22fr Feeding 08-26-2016 Gastrostomy Junior - Tmg245668 Screw 2.4 X 32mm Va 08-28-19 17 Lock Self-Tap Strdrv Rec - Otk703713 Screw 2.4 X 44mm Va 08-28-19 17 Lock Self-Tap Strdrv Rec - [id number] Screw 2.4 X 36mm 08-27-2016 Cortex Self-Tap T8 Strdrv Rec - [id number] Screw 2.4 X 38mm 08-27-2016 Cortex Self-Tap T8 Strdrv Rec - [id number] Wire K .045 X 5.5in 08-28-19 17 W/Wire Guide - [id number] Plate 2.4mm 2.7mm 08-27-2016 Va-Lock Mesh 5 X 12hls - [id number] Wire 15 X 150mm 08-27-2016 Compression Thrd - [id number] 1.6mm Compression 08-27-2016 Wires 20mm Thread Length, 1500mm Total Length Screw 2.4 X 18mm [place] 017 Ang Lock Strdrv - [id number] Screw 2.4 X 20mm [place] 017 Ang Lock Strdrv - [id number] Screw 2.4 X 22mm [place] 017 Ang Lock Strdrv - [id number] Hemostat 8 X 12.5cm 11-04-19 17 X 10mm Surgifoam Gelatin Sponge - Kkh6870119 Screw 2.5 X 4mm Ti 7 Schanz 14mm Thrd Body - [id number] Hemostat 2 X 14in 12-03-2016 Surgicel - [id number] Hemostat 8 X 6.25cm 05-25-19 18 X 10mm Surgifoam Gelatin Sponge - Bek2344091 Screw 2.5 X 4mm Ti 9 Schanz 10mm Thrd Ramus - [id number] Screw 2.5 X 4mm Ti 9 Schanz 14mm Thrd Body - [id number] Bone Infuse Bone 11-03-2016 Graft Sm - Twy6752276 Bone Infuse Bone 05-25-2017 Graft Xsm - [id number] Bone Infuse Bone 05-12-2018 Graft Sm - [id number] Cement Bone 12-24-2016 Radiopaque Simplex P Single Dose - [id number] Tube Sz8 Trach 08-26-2016 Cuffed - Zzp139334 Tube 22fr Feeding 08-26-2016 Gastrostomy Junior - Aqh549938 Screw 2.4 X 32mm Va 08-28-19 17 Lock Self-Tap Strdrv Rec - [id number] Screw 2.4 X 44mm Va 08-28-19 17 Lock Self-Tap Strdrv Rec - Mjj670384 Screw 2.4 X 36mm 08-27-2016 Cortex Self-Tap T8 Strdrv Rec - [id number] Screw 2.4 X 38mm 08-27-2016 Cortex Self-Tap T8 Strdrv Rec - Ykb836471 Wire K .045 X 5.5in 08-28-19 17 W/Wire Guide - [id number] Plate 2.4mm 2.7mm 08-27-2016 Va-Lock Mesh 5 X 12hls - [id number] Wire 15 X 150mm 08-27-2016 Compression Thrd - [id number] 1.6mm Compression 08-27-2016 Wires 20mm Thread Length, 1500mm Total Length Screw 2.4 X 18mm [place] 017 Ang Lock Strdrv - Gcw875508 Screw 2.4 X 20mm [place] 017 Ang Lock Strdrv - Bmv451401 Screw 2.4 X 22mm [place] 017 Ang Lock Strdrv - [id number] Hemostat 8 X 12.5cm 11-04-19 17 X 10mm Surgifoam Gelatin Sponge - [id number] Screw 2.5 X 4mm Ti 7 Schanz 14mm Thrd Body - [id number] Hemostat 2 X 14in 12-03-2016 Surgicel - [id number] Hemostat 8 X 6.25cm 05-25-19 18 X 10mm Surgifoam Gelatin Sponge - [id number] Screw 2.5 X 4mm Ti 9 Schanz 10mm Thrd Ramus - [id number] Screw 2.5 X 4mm Ti 9 Schanz 14mm Thrd Body - Wph0948512 Bone Infuse Bone 11-03-2016 Graft Sm - Jzj0106829 Tube Sz8 Trach 08-26-2016 Cuffed - Kpz491788 Tube 22fr Feeding 08-26-2016 Gastrostomy Junior - Hmc884435 Screw 2.4 X 32mm Va 08-28-19 17 Lock Self-Tap Strdrv Rec - [id number] Screw 2.4 X 44mm Va 08-28-19 17 Lock Self-Tap Strdrv Rec - [id number] Screw 2.4 X 36mm 08-27-2016 Cortex Self-Tap T8 Strdrv Rec - Lpu174065 Screw 2.4 X 38mm 08-27-2016 Cortex Self-Tap T8 Strdrv Rec - [id number] Wire K .045 X 5.5in 08-28-19 17 W/Wire Guide - [id number] Plate 2.4mm 2.7mm 08-27-2016 Va-Lock Mesh 5 X 12hls - [id number] Wire 15 X 150mm 08-27-2016 Compression Thrd - [id number] 1.6mm Compression 08-27-2016 Wires 20mm Thread Length, 1500mm Total Length Screw 2.4 X 18mm [place] 017 Ang Lock Strdrv - [id number] Screw 2.4 X 20mm [place] 017 Ang Lock Strdrv - [id number] Screw 2.4 X 22mm [place] 017 Ang Lock Strdrv - [id number] Hemostat 8 X 12.5cm 11-04-19 17 X 10mm Surgifoam Gelatin Sponge - Hla4903982 Screw 2.5 X 4mm Ti 7 Schanz 14mm Thrd Body - [id number] Hemostat 2 X 14in 12-03-2016 Surgicel - [id number] Bone Infuse Bone 11-03-2016 Graft Sm - Oxo9873026 Tube Sz8 Trach 08-26-2016 Cuffed - Zqm143934 Tube 22fr Feeding 08-26-2016 Gastrostomy Junior - Kmr572648 Screw 2.4 X 32mm Va 08-28-19 17 Lock Self-Tap Strdrv Rec - [id number] Screw 2.4 X 44mm Va 08-28-19 17 Lock Self-Tap Strdrv Rec - [id number] Screw 2.4 X 36mm 08-27-2016 Cortex Self-Tap T8 Strdrv Rec - [id number] Screw 2.4 X 38mm 08-27-2016 Cortex Self-Tap T8 Strdrv Rec - [id number] Wire K .045 X 5.5in 08-28-19 17 W/Wire Guide - [id number] Plate 2.4mm 2.7mm 08-27-2016 Va-Lock Mesh 5 X 12hls - [id number] Wire 15 X 150mm 08-27-2016 Compression Thrd - [id number] 1.6mm Compression 08-27-2016 Wires 20mm Thread Length, 1500mm Total Length Screw 2.4 X 18mm [place] 017 Ang Lock Strdrv - [id number] Screw 2.4 X 20mm [place] 017 Ang Lock Strdrv - [id number] Screw 2.4 X 22mm [place] 017 Ang Lock Strdrv - [id number] Hemostat 8 X 12.5cm 11-04-19 17 X 10mm Surgifoam Gelatin Sponge - [id number] Screw 2.5 X 4mm Ti 7 Schanz 14mm Thrd Body - [id number] Hemostat 2 X 14in 12-03-2016 Surgicel - [id number] Bone Infuse Bone 463911_[facility] [place] 11-03-2016 Graft Sm - [id number] Bone Infuse Bone 573918_[facility] [place] 05-25-2017 Graft Xsm - [id number] Bone Infuse Bone 765182_[facility] [place] 05-12-2018 Graft Sm - [id number] Cement Bone 491380_[facility] [place] 12-24-2016 Radiopaque Simplex P Single Dose - [id number] Tube Sz8 Trach 428782_[facility] [place] 08-26-2016 Cuffed - [id number] Tube 22fr Feeding 428815_[facility] [place] 08-26-2016 Gastrostomy Junior - [id number] Screw 2.4 X 32mm Va 429110[facility] [place] 08-28-19 17 Lock Self-Tap Strdrv Rec - [id number] Screw 2.4 X 44mm Va 429111[facility] [place] 08-28-19 17 Lock Self-Tap Strdrv Rec - [id number] Screw 2.4 X 36mm 429112[facility] [place] 08-27-2016 Cortex Self-Tap T8 Strdrv Rec - [id number] Screw 2.4 X 38mm 429114[facility] [place] 08-27-2016 Cortex Self-Tap T8 Strdrv Rec - [id number] Wire K .045 X 5.5in 429036_[facility] [place] 08-28-19 17 W/Wire Guide - [id number] Plate 2.4mm 2.7mm 429101_[facility] [place] 08-27-2016 Va-Lock Mesh 5 X 12hls - [id number] Wire 15 X 150mm 429103_[facility] [place] 08-27-2016 Compression Thrd - [id number] 1.6mm Compression 429104_[facility] [place] 08-27-2016 Wires 20mm Thread Length, 1500mm Total Length Screw 2.4 X 18mm [place] 429107_[facility] [place] 017 Ang Lock Strdrv - [id number] Screw 2.4 X 20mm [place] 429108_[facility] [place] 017 Ang Lock Strdrv - [id number] Screw 2.4 X 22mm [place] 429109_[facility] [place] 017 Ang Lock Strdrv - [id number] Hemostat 8 X 12.5cm 463943[facility] [place] 11-04-19 17 X 10mm Surgifoam Gelatin Sponge - [id number] Screw 2.5 X 4mm Ti 473967_[facility] [place] 7 Schanz 14mm Thrd Body - [id number] Hemostat 2 X 14in 479593[facility] [place] 12-03-2016 Surgicel - [id number] Hemostat 8 X 6.25cm 573917_[facility] [place] 05-25-19 18 X 10mm Surgifoam Gelatin Sponge - [id number] Screw 2.5 X 4mm Ti 771792_[facility] [place] 9 Schanz 10mm Thrd Ramus - [id number] Screw 2.5 X 4mm Ti 771793[facility] [place] 9 Schanz 14mm Thrd Body - [id number] Hospital Course Kellie Vega [facility] - 03/14/2017 9:37 AM ESTFormatting of this note may be different from the original. DISCHARGE SUMMARY Patient: Honorio Prince Account: [id number] Admitted: 03/11/2017 Discharge Date/Time: No discharge date [...] Care Provider: Sasha Fields MD, , Address: [address] [place] [address] / [place] [phone] Follow Up: Mony Enriquez MD [address] [facility] [address] [place] [address] Schedule an appointment as soon as possible [...] chart reviewed. I agree with the resident/ [facility]'s evaluation and plan.in this encounterKellie Vega CNP - 12/28/2016 10:22 AM EDTFormatting of this note may be different from the original. DISCHARGE SUMMARY Patient: Honorio Prince Account: [id number] Admitted: 12/21/2016 Discharge Date/Time: No discharge date [...] Care Provider: Physician No, Phone: None, Address: [facility] Follow Up: Mony Enriquez MD [address] [place] [address] Schedule an appointment as soon as possible for a visit in 1 week(s) Sridhar Lainez MD [address] [address] Additional Information Patient instructions, including activity, were [...] original. DISCHARGE SUMMARY Patient: Honorio Prince Account: [id number] Admitted: 05/25/2017 Discharge Date/Time: No discharge date [...] Care Provider: Sasha Fields MD, , Address: [address] [place] [address] / [place] [address] Follow Up: Sridhar Lainez MD [address] [facility] [address] Schedule an appointment as soon as possible for a visit in 6 week(s) Mony Enriquez MD [address] [facility] [address] [facility] [address] Schedule an appointment as soon as [...] EST DISCHARGE SUMMARY Patient: Honorio Prince Account: [id number] Admitted: 05/12/2018 Discharge Date/Time: No discharge date [...] Care Provider: Sasha Fields MD, , Address: [address] [place] [address] / [place] [address] Follow Up: Mony Enriquez MD [address] [place] [address] Schedule an appointment as soon as possible [...] different from the original. Home Health Care: [facility] at Continue current services. ? Infusion [...] KacieAra hall, DEE - 12/22/2016 12:[facility] Continue current services. Infusion Services: [facility] Weekly CBC with diff, creatinine, vanco trough, ESR, CRP to Dr. Lainez at [phone]. Apply for Victims Compensation If you or your family members are innocent victims of a violent crime, financial assistance may be available. The following is a list of guidelines to help you determine whether you might be eligible for a payment. For specific questions, call the Hiv Nurse?s Office at [phone]. Applications and supplemental applications can be mailed to: [address] [place] [address], [address] [place] [address] Apply online: [email or web address] Crime Victims Compensation Guidelines Effective July 30, 2016: [place] Crime Victim Compensation Program Statutory Changes Who [...] a child endangering or domestic violence conviction, pxtzog55 years prior to the crime or while [...] for stolen, damaged, or lost property. The Hiv Nurse?s Office will not pay victims for expenses [...] canes, walkers, wheelchairs, and other mobility equipment. Fireproof Door Maker fees for civil protection orders' hourly rate for legal work went up from $60.00 per hour to $100.00. The maximum amount for trust and estates attorney fees per claim was changed to $1,000.00. Reasonable travel time to attend hearings is limited to 3 hours round trip for each hearing at $30.00 per hour. The cap on individual attorneys or law firms was eliminated. A supplemental application may be filed within six years of the last decision of the Hiv Nurse, an [place] Court of Claims panel commissioners, or a Court of Claims cloud subject matter expert.Ashleigh Hurd, SRINI - 12/28/2016Formatting of this note [...] drive, operate heavy machinery, ride motorcycles or ATiPowerUp's, drink alcohol, or take other medications that [...] have a primary care physician please call [facility] Physician Referral Line [phone] for assistance. in this encounterDischarge Instr - Care Coordination - Piedad Phillips RN - 05/30/2017 1:46 PM ESTWeekly CBC with diff, creatinine, vanco trough, ESR, CRP to Dr. Lainez at [phone]. [facility] P:[phone] F:[phone] Vega CNP - 05/31/2017Wound Care: Change dressing [...] through Care Everywhere.NAUSEA AND VOMITING: AFTER SURGERY (GUATEMALAN)POST-OP INFECTION (GUATEMALAN)SEDATION (GUATEMALAN) SURGERY: POST-OP BLEEDING (GUATEMALAN)PICC (PERIPHERALLY INSERTED CENTRAL CATHETER) (GUATEMALAN)in this encounterDischarge Instr - Care Coordination - Fransisco, Dimas García RN - 12/07/2016 10:51 AM EDTWeekly CBC with diff, creatinine, vanco trough, ESR, CRP to Dr. Lainez at [phone]. [facility] Health Nurses , fax [phone] Pt. Is staying with his mother Corinna [address] [place] [address] WmybleKellie Vega CNP - 12/07/2016Wound Care: Change dressing [...] LFT, ESR, CRP to Dr. Lainez at [phone]. [facility] Health nurses Pt is going to stay w mother Corinna Prince [phone] [facility] [address]AvxoiSavage Orozco DO - 11/25/2016Surgical Drain Care: Care [...] Log into your personal health record on [email or web address] and enter K117 in the Education box to learn more about Surgical Drain Care: Care Instructions. Current as of: September 19, 2015 Content Version: 11.2 ? 6905-0358 [employer]. Care instructions adapted under license by your healthcare professional. If you have questions about a medical condition or this instruction, always ask your healthcare professional. [employer] disclaims any warranty or liability for your use of this information. The following attachments cannot be sent through Care Everywhere.PICC (PERIPHERALLY INSERTED CENTRAL CATHETER) (GUATEMALAN)in this encounterDischarge Instr - Other OrdersRoxanne Chapin [...] seen in clinic in this encounterInsKim Ruiz, TICKET ATTENDANT - 05/26/2018 INJURIES: 1. Left?facial abscess 2. 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 If not, please contact the office at your earliest convenience to schedule your follow up appointment. Bring your medications and pill bottles with you to your first visit. Outpatient Trauma and Acute Care Surgery Office: [address] [facility] 7th Floor, [address] [place] [address] Hours: Tuesday-Tuesday, 8am to 4pm. If you need to speak with the trauma/surgery team after hours, please call and ask to speak with the Trauma Nurse Practitioner seasoner. Parking: You may park in the Green Garage, which is attached to the front of the hospital. From within the garage, take the C elevators up to the 7th Floor. The office is in [address]. Double Surface Operator: If you choose showroom manager parking, please do so at the Main Hospital entrance. Go up to the second floor. Follow signs for the Bone and Joint Building. Senior Living across the bridge, take the elevators toyour right up to the 7th floor. You may also enter from the [facility] entrance, located at the corner of [facility]. You may also enter from the [facility] entrance, located at the corner of [facility]. Take the D elevators up to the 7th Floor. Use this entrance if you are arriving by ambulance or wheelchair van. Garage or Double Surface Operator parking is free with a voucher, which you will receive at your appointment. PRIMARY CARE PHYSICIAN FOLLOW UPCall and schedule a post Trauma follow up appointment with your primary care provider. If you need assistance with obtaining a primary care physician please call: [phone] MA[facility] AT HOMEPain [...] taking a prescription pain medicine, take an wcax-axo-uldgaqa medicine as directed such as Tylenol (Acetaminophen) [...] your doctor if you can take an qyhs-ssd-srbwfsu medicine. ? Keep your bandage clean and [...] Log into your personal health record on [email or web address] and enter D633 in the Education box to learn more about Skin Abscess: Care Instructions. Current as of: August 09, 2017 Content Version: 11.9 ? 5616-1894 [employer]. Care instructions adapted under license by your healthcare professional. If you have questions about a medical condition or this instruction, always ask your healthcare professional. [employer] disclaims any warranty or liability for your use of this information. AttachmentsThe following attachments cannot be sent through Care Everywhere. Osteomyelitis (Micronesian)in this encounter Assessments Diagnosis Preoperative evaluation to [...] type Anemia, unspecified type Schizophrenia, unspecified type ([facility]) Deep vein thrombosis (DVT) prophylaxis p rescribed [...] Documents on File Type Date Recorded Patient Design/Animation Instructor Explanati on Advance Directives and Living 02/03/2017 10:32 AM pt declined Will Advance Directives and Living 11/27/2018 8:36 AM Will Advance Directives and Living 02/23/2018 11:36 AM Will Advance Directives and Living 06/05/2018 6:12 PM Will Documents on File Type Date Recorded Patient Design/Animation Instructor Explanati on Advance Directives and Living 02/03/2017 [...] 3D MD Ovi [address] [facility] [address] [place], [place] [address] Phone: Status Reason Specialty Diagnoses / Referred By Referred To Procedures Contact Contact Authorized Specialty Orthopedic Diagnoses 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, unspecified laterality, subsequent encounter Mony Enriquez [facility] Surgery MD Ovi State Required/Patien [address] [facility] [address] Interest [facility] [address] [place] [phone] Phone: Fax: Status Reason Specialty Diagnoses / Referred By Referred To Procedures Contact Contact Closed Specialty Orthopedic Diagnoses 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, unspecified laterality, subsequent encounter Mony Enriquez [facility] Surgery MD Ovi [facility] Required/Patien [address] [facility] [address] [place] [phone] Phone: Fax: Status Reason Specialty Diagnoses / Procedures Referred By C ontact Referred To Contact Closed Diagnoses Broken jaw, with nonunion, subsequent encounter Mony Enriquez MD [address] [facility] [address] [place], [place] [address] Phone: Status Reason Specialty Diagnoses / Referred By Referred To Procedures Contact Contact Pending Specialty Radiology Diagnoses 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, subsequent encounter Becky [facility] Review Services Procedures CT Maxillofacial Without Contrast 3D Tahira You, [address] [place] [address] Required/Patien SUL[facility] [address] [facility] [address] [place] [address] Phone: [phone] Phone: History of Present Illness Mony Enriquez MD - 02/23/2018 12:17 PM EDTFormatting of this note may be different from the original. Patient Name: Dewayne Prince MR #: [id number] Acct #: ?[id number] : ?1980 ? Referring Physician: ?No ref. [...] APPLICATION; ?Surgeon: Mony Enriquez MD; ?Location: [facility] Main OR; ?Service: Plastics ? ARCHBAR REMOVAL N/A 10/01/2016 ? Procedure: INTERMAXILLARY FIXATION SCREW REMOVAL ; ?Surgeon: Mony Enriquez MD; ?Location: [facility] Main OR; ?Service: ? ARCHBAR REMOVAL N/A 11/22/2016 ? Procedure: MANDIBLE IMF SCREW REMOVAL ; ?Surgeon: Mony Enriquez MD; ?Location: [facility] Main OR; ?Service: ? BONE GRAFT ILIAC CREST Left 11/03/2016 ? Procedure: ILIAC CREST BONE GRAFT; ?Surgeon: Mony Enriquez MD; ?Location: [facility] Main OR; ?Service: ? BONE GRAFT ILIAC CREST N/A 05/25/2017 ? Procedure: ILIAC CREST BONE GRAFT; ?Surgeon: Mony Enriquez MD; ?Location: [facility] Main OR; ?Service: Plastics ? DEBRIDEMENT WITH WOUND CLOSURE POSS SKIN GRAFT HEAD AND NECK Left 12/22/2016 ? Procedure: LEFT JAW FLAP DEBRIDEMENT W/ POSSIBLE CLOSURE; ?Surgeon: Mony Enriquez MD; ?Location: [facility] Main OR; ?Service: ? EXTERNAL FIXATOR APPLICATION MANDIBLE Left 11/03/2016 ? Procedure: MANDIBLE EXTERNAL FIXATOR REMOVAL; ?Surgeon: Mony Enriquez MD; ?Location: [facility] Main OR; ?Service: ? EXTERNAL FIXATOR REMOVAL ? 03/11/2017 ? Procedure: REMOVAL EXTERNAL FIXATOR; ?Surgeon: Mony Enriquez MD; ?Location: [facility] Main OR; ?Service: ? FLAP FREE TRUNK N/A 12/03/2016 ? Procedure: PECTORALIS MAJOR MUSCLE FLAP TO JAW SPLIT THICKNESS SKIN GRAFT LEFT MANDIBLE DEBRIDEMENT; ?Surgeon: Mony Enriquez MD; ?Location: [facility] Main OR; ?Service: ? FLAP PECTORALIS ROTATIONAL Left 12/24/2016 ? Procedure: LEFT PECTORAL FLAP ADVACEMENT FOR CLOSURE ; ?Surgeon: Mony Enriquez MD; ?Location: [facility] Main OR; ?Service: ? FLAP ROTATIONAL HEAD/NECK N/A 03/11/2017 ? Procedure: FASCIAL FLAP ROTATIONAL ; ?Surgeon: Mony Enriquez MD; ?Location: [facility] Main OR; ?Service: ? GASTROSTOMY OPEN N/A 08/26/2016 ? Procedure: GASTROSTOMY TUBE PLACEMENT; ?Surgeon: Janes Raymundo MD; ?Location: [facility] Main OR; ?Service: ? HARDWARE REMOVAL KNEE Left 03/11/2017 ? Procedure: POSSIBLE PATELLA HARDWARE REMOVAL; ?Surgeon: Anuj Lugo MD; ?Location: [facility] Main OR; ?Service: ? HERNIA REPAIR ? age 7 ? umbilical ? INCISION AND DRAINAGE HEAD/NECK Left 05/28/2017 ? Procedure: LEFT JAW ?ABSCESS INCISION AND DRAINAGE, REMOVAL OF JAW SCREWS AND WIRES; ?Surgeon: Mony Enriquez MD; ?Location: [facility] Main OR; ?Service: Plastics ? INCISION AND DRAINAGE LOWER EXTREMITY Left 03/11/2017 ? Procedure: LEFT KNEE WOUND INCISION AND DRAINAGE ??POSSIBLE EXTENSOR MECHANISM REPAIR ; ?Surgeon: Anuj Lugo MD; ?Location: [facility] Main OR; ?Service: ? ORIF MANDIBLE Bilateral 08/27/2016 ? Procedure: EXPLORATION OF MANDIBLE AND MIDFACE / POSSIBLE EX-FIX; ?Surgeon: Mony Enriquez MD; ?Location: [facility] Main OR; ?Service: ? ORIF MANDIBLE Left 11/03/2016 ? Procedure: MANDIBLE OPEN REDUCTION INTERNAL FIXATION ; ?Surgeon: Mony Enriquez MD; ?Location: [facility] Main OR; ?Service: ? ORIF MANDIBLE N/A 05/25/2017 ? Procedure: MANDIBLE OPEN REDUCTION INTERNAL FIXATION; ?Surgeon: Mony Enriquez MD; ?Location:[facility]; ?Service: Plastics ? ORIF PATELLA ? 08/27/2016 ? Procedure: OPEN REDUCTION INTERNAL FIXATION PATELLA WITH I &?D; ?Surgeon: Anuj Lugo MD; ?Location: [facility] Main OR; ?Service: ? TRACHEOSTOMY N/A 08/26/2016 ? Procedure: TRACHEOSTOMY; ?Surgeon: Janes Raymundo MD; ?Location: [facility] Main OR; ?Service: ? TRAUMA CART LAPAROTOMY Left 08/26/2016 ? Procedure: EXPL LEFT NECK; ?Surgeon: Janes Raymundo MD; ?Location: [facility] Main OR; ?Service: ? Family History Problem [...] Prior to Surgery MAHAD: ? Printed on:11/01/17 2735 Medication Information Take last dose on Take [...] original. Patient Name: ?Honorio Prince MR #: ?[id number] Acct #: ?[id number] : ?1980 ? Referring Physician: ?No ref. [...] APPLICATION; ?Surgeon: Mony Enriquez MD; ?Location: [facility] Main [facility]; ?Service: Plastics ? ARCHBAR REMOVAL N/A 10/01/2016 ? Procedure: INTERMAXILLARY FIXATION SCREW REMOVAL ; ?Surgeon: Mony Enriquez MD; ?Location: [facility] Main OR; ?Service: ? ARCHBAR REMOVAL N/A 11/22/2016 ? Procedure: MANDIBLE IMF SCREW REMOVAL ; ?Surgeon: Mony Enriquez MD; ?Location: [facility] Main OR; ?Service: ? BONE GRAFT ILIAC CREST Left 11/03/2016 ? Procedure: ILIAC CREST BONE GRAFT; ?Surgeon: Mony Enriquez MD; ?Location: [facility] Main [facility]; ?Service: ? BONE GRAFT ILIAC CREST N/A 05/25/2017 ? Procedure: ILIAC CREST BONE GRAFT; ?Surgeon: Mony Enriquez MD; ?Location: [facility] Main [facility]; ?Service: Plastics ? DEBRIDEMENT WITH WOUND CLOSURE POSS SKIN GRAFT HEAD AND NECK Left 12/22/2016 ? Procedure: LEFT JAW FLAP DEBRIDEMENT W/ POSSIBLE CLOSURE; ?Surgeon: Mony Enriquez MD; ?Location: [facility] Main [facility]; ?Service: ? EXTERNAL FIXATOR APPLICATION MANDIBLE Left 11/03/2016 ? Procedure: MANDIBLE EXTERNAL FIXATOR REMOVAL; ?Surgeon: Mony Enriquez MD; ?Location: [facility] Main [facility]; ?Service: ? EXTERNAL FIXATOR REMOVAL ? 03/11/2017 ? Procedure: REMOVAL EXTERNAL FIXATOR; ?Surgeon: Mony Enriquez MD; ?Location: [facility] Main [facility]; ?Service: ? FLAP FREE TRUNK N/A 12/03/2016 ? Procedure: PECTORALIS MAJOR MUSCLE FLAP TO JAW SPLIT THICKNESS SKIN GRAFT LEFT MANDIBLE DEBRIDEMENT; ?Surgeon: Mony Enriquez MD; ?Location: [facility] Main [facility]; ?Service: ? FLAP PECTORALIS ROTATIONAL Left 12/24/2016 ? Procedure: LEFT PECTORAL FLAP ADVACEMENT FOR CLOSURE ; ?Surgeon: Mony Enriquez MD; ?Location: [facility] Main [facility]; ?Service: ? FLAP ROTATIONAL HEAD/NECK N/A 03/11/2017 ? Procedure: FASCIAL FLAP ROTATIONAL ; ?Surgeon: Mony Enriquez MD; ?Location: [facility] Main [facility]; ?Service: ? GASTROSTOMY OPEN N/A 08/26/2016 ? Procedure: GASTROSTOMY TUBE PLACEMENT; ?Surgeon: Janes Raymundo MD; ?Location: [facility] Main [facility]; ?Service: ? HARDWARE REMOVAL KNEE Left 03/11/2017 ? Procedure: POSSIBLE PATELLA HARDWARE REMOVAL; ?Surgeon: Anuj Lugo MD; ?Location: [facility] Main [facility]; ?Service: ? HERNIA REPAIR ? age 7 ? umbilical ? INCISION AND DRAINAGE HEAD/NECK Left 05/28/2017 ? Procedure: LEFT JAW ?ABSCESS INCISION AND DRAINAGE, REMOVAL OF JAW SCREWS AND WIRES; ?Surgeon: Mony Enriquez MD; ?Location: [facility] Main [facility]; ?Service: Plastics ? INCISION AND DRAINAGE LOWER EXTREMITY Left 03/11/2017 ? Procedure: LEFT KNEE WOUND INCISION AND DRAINAGE ??POSSIBLE EXTENSOR MECHANISM REPAIR ; ?Surgeon: Anuj Lugo MD; ?Location: [facility] Main OR; ?Service: ? ORIF MANDIBLE Bilateral 08/27/2016 ? Procedure: EXPLORATION OF MANDIBLE AND MIDFACE / POSSIBLE EX-FIX; ?Surgeon: Mony Enriquez MD; ?Location: [facility] Main [facility]; ?Service: ? ORIF MANDIBLE Left 11/03/2016 ? Procedure: MANDIBLE OPEN REDUCTION INTERNAL FIXATION ; ?Surgeon: Mony Enriquez MD; ?Location: [facility] Main OR; ?Service: ? ORIF MANDIBLE N/A 05/25/2017 ? Procedure: MANDIBLE OPEN REDUCTION INTERNAL FIXATION; ?Surgeon: Mony Enriquez MD; ?Location:[facility]; ?Service: Plastics ? ORIF PATELLA ? 08/27/2016 ? Procedure: OPEN REDUCTION INTERNAL FIXATION PATELLA WITH I &?D; ?Surgeon: Anuj Lugo MD; ?Location: [facility] Main [facility]; ?Service: ? TRACHEOSTOMY N/A 08/26/2016 ? Procedure: TRACHEOSTOMY; ?Surgeon: Janes Raymundo MD; ?Location: [facility] Main [facility]; ?Service: ? TRAUMA CART LAPAROTOMY Left 08/26/2016 ? Procedure: EXPL LEFT NECK; ?Surgeon: Janes Raymundo MD; ?Location: [facility] Main [facility]; ?Service: ? Family History Problem [...] be adequate intramedullary canal diameter for reamer telegraph editor aspirator harvesting of bone graft. There is [...] from the left femur using the reamer telegraph editor aspirator system. Plan: I went over risk [...] Date: 05/13/18 Barriers to Discharge: No barriers [facility] Disposition D/C Disposition: Home Agency/Destination: Home Home Care Needs : None HME: None Same As Recommended : yes Transportation Type: Cab Transportation Company/Agency Name: Other (Comment)([facility]) Anticipated Discharge Plan Anticipated HME: Undetermined Anticipated Home Care Needs: Undetermined CM spoke with pt, verified demographics and discharge location. Pt will be discharging to his mother's house at [address] [place] [address]. Pt has paper scripts for discharge and his mothercan walk to the pharmacy to pick them up. CM called [facility] for transportation home, provided discharge address and cell number for contact at picker tender helper. Will continue to follow until discharged. Francis [...] left femur bone graft harvesting from reamer telegraph editor aspirator system Plan: - Labs reviewed - [...] Income Source: Unemployed Resources Financial Resources: Other (Comment)([facility] Medicaid payer with rx coverage confirmed) Community Resources: Other (Comment)(PCP: Sasha Fields MD # [phone]) Discharge Plan Shared UM/CC and RN Source of Information: Patient Contact Phone Number: (Nancy Prince #[phone]) Living Arrangements: Parent Support Systems: Parent Functional [...] NOTE Patient Name: Honorio Prince MR #: [id number] Assessment and Plan: 1. Postop abscess of [...] tablet 1 tablet Oral Q12H [facility] Sridhar Lainez MD 1 tablet at 05/27/18 0801 ? enoxaparin (LOVENOX) syringe 30 mg 30 mg Subcutaneous BID Peyton Amador PA-C 30 mg at 05/27/18 0757 ? famotidine (PEPCID) tablet 40 mg 40 mg Oral Nightly Carroll Noyola [facility],PharmD 40 mg at 05/26/182208 ? [...] APPLICATION; Surgeon: Mony Enriquez MD; Location: [facility]; Service: Plastics ? ARCHBAR REMOVAL N/A 10/01/2016 Procedure: INTERMAXILLARY FIXATION SCREW REMOVAL ; Surgeon: Mony Enriquez MD; Location: [facility] Main OR; Service: ? ARCHBAR REMOVAL N/A 11/22/2016 Procedure: MANDIBLE IMF SCREW REMOVAL ; Surgeon: Mony Enriquez MD; Location: [facility] Main [facility]; Service: ? BONE GRAFT Left 05/12/2018 Procedure: BONE GRAFT; Surgeon: Kavitha Antonio MD; Location: [facility] Main [facility]; Service: Orthopedic ? BONE GRAFT FACE N/A 05/12/2018 Procedure: W/ BONE GRAFT; Surgeon: Mony Enriquez MD; Location: [facility] Main [place]; Service: Plastics ? BONE GRAFT ILIAC CREST Left 11/03/2016 Procedure: ILIAC CREST BONE GRAFT; Surgeon: Mony Enriquez MD; Location: [facility] Main [place]; Service: ? BONE GRAFT ILIAC CREST N/A 05/25/2017 Procedure: ILIAC CREST BONE GRAFT; Surgeon: Mony Enriquez MD; Location: [facility] Main [place]; Service:Plastics ? DEBRIDEMENT WITH WOUND CLOSURE POSS SKIN GRAFT HEAD AND NECK Left 12/22/2016 Procedure: LEFT JAW FLAP DEBRIDEMENT W/ POSSIBLE CLOSURE; Surgeon: Mony Enriquez MD; Location: [facility] Main [place]; Service: ? DEBRIDEMENT WITH WOUND CLOSURE POSS SKIN GRAFT HEAD AND NECK N/A 05/23/2018 Procedure: MANDIBLE INCISION AND DRAINAGE WITH POSSIBLE CLOSURE; Surgeon: Leon De Leon MD; Location: [facility] Main [facility]; Service: Plastics ? EXTERNAL FIXATOR APPLICATION MANDIBLE Left 11/03/2016 Procedure: MANDIBLE EXTERNAL FIXATOR REMOVAL; Surgeon: Mony Enriquez MD; Location: [facility] Main [facility]; Service: ? EXTERNAL FIXATOR REMOVAL 03/11/2017 Procedure: REMOVAL EXTERNAL FIXATOR; Surgeon: Mony Enriquez MD; Location: [facility] Main [facility]; Service: ? FLAP FREE TRUNK N/A 12/03/2016 Procedure: PECTORALIS MAJOR MUSCLE FLAP TO JAW SPLIT THICKNESS SKIN GRAFT LEFT MANDIBLE DEBRIDEMENT; Surgeon: Mony Enriquez MD; Location: [facility] Main [facility]; Service: ? FLAP PECTORALIS ROTATIONAL Left 12/24/2016 Procedure: LEFT PECTORAL FLAP ADVACEMENT FOR CLOSURE ; Surgeon: Mony Enriquez MD; Location: [facility] Main [facility]; Service: ? FLAP ROTATIONAL HEAD/NECK N/A 03/11/2017 Procedure: FASCIAL FLAP ROTATIONAL ; Surgeon: Mony Enriquez MD; Location: [facility] Main [facility]; Service: ? GASTROSTOMY OPEN N/A 08/26/2016 Procedure: GASTROSTOMY TUBE PLACEMENT; Surgeon: Janes Raymundo MD; Location: [facility] Main [facility]; Service: ? HARDWARE REMOVAL HEAD/NECK N/A 05/12/2018 Procedure: MANDIBLE HARDWARE REMOVAL; Surgeon: Mony Enriquez MD; [facility] [facility]; Service: Plastics ? HARDWARE REMOVAL KNEE Left 03/11/2017 Procedure: POSSIBLE PATELLA HARDWARE REMOVAL; Surgeon: Anuj Lugo MD; Location: [facility]; Service: ? HERNIA REPAIR age 7 umbilical ? INCISION AND DRAINAGE HEAD/NECK Left 05/28/2017 Procedure: LEFT JAW ABSCESS INCISION AND DRAINAGE, REMOVAL OF JAW SCREWS AND WIRES; Surgeon: Mony Enriquez MD; Location: [facility]; Service: Plastics ? INCISION AND DRAINAGE HEAD/NECK N/A 05/22/2018 Procedure: INCISION AND DRAINAGE JAW; Surgeon: Leon De Leon MD; Location: [facility] [place]; Service: Plastics ? INCISION AND DRAINAGE LOWER EXTREMITY Left 03/11/2017 Procedure: LEFT KNEE WOUND INCISION AND DRAINAGE POSSIBLE EXTENSOR MECHANISM REPAIR ; Surgeon: Anuj Lugo MD; Location: [facility]; Service: ? ORIF MANDIBLE Bilateral 08/27/2016 Procedure: EXPLORATION OF MANDIBLE AND MIDFACE / POSSIBLE EX-FIX; Surgeon: Mony Enriquez MD; [place]: [facility]; Service: ? ORIF MANDIBLE Left 11/03/2016 Procedure: MANDIBLE OPEN REDUCTION INTERNAL FIXATION ; Surgeon: Mony Enriquez MD; [place]: [facility] [place]; Service: ? ORIF MANDIBLE N/A 05/25/2017 Procedure: MANDIBLE OPEN REDUCTION INTERNAL FIXATION; Surgeon: Mony Enriquez MD; Location: [facility] [place]; Service: Plastics ? ORIF MANDIBLE N/A 05/12/2018 Procedure: MANDIBLE OPEN REDUCTION INTERNAL FIXATION; Surgeon: Mony Enriquez MD; [place]: [facility] [place]; Service: Plastics ? ORIF PATELLA 08/27/2016 Procedure: OPEN REDUCTION INTERNAL FIXATION PATELLA WITH I & D; Surgeon: Anuj Lugo MD; [place]: [facility]; Service: ? TRACHEOSTOMY N/A 08/26/2016 Procedure: TRACHEOSTOMY; Surgeon: Janes Raymundo MD; Location: [facility] [place]; Service: ? TRAUMA CART LAPAROTOMY Left 08/26/2016 Procedure: EXPL LEFT NECK; Surgeon: Janes Raymundo MD; Location: [facility] [place]; Service: For complete objective data, detailed plan of care, and education refer to: Speech Comm/COG flow sheets, Bedside Study Evaluation flow sheets, [facility] Navigator, as well [...] Estimated Energy Needs Total Energy Estimated Needs: 0377-6233 Method for Estimating Needs: MSJ x 1-1.2 Total Protein Estimated Needs: 109g Method for Estimating Needs: 1.5g/kg/ibw AISSATOU Walker [address], [facility] Beverley Jorgensen RN - 05/26/2018 10:33 [...] rounds, pt not medically ready for discharge. [facility] following for discharge needs. Kellie Grijalva CNP - 05/26/2018 8:57 AM EST PLASTIC SURGERY PROGRESS NOTE A: Honorio Prince is a 37yo male s/p repeat I&D of left mandible and external fixator applicationon 05/23/18. P: - Strip and record FLOYD - Edema to left jaw stable, neck enlargement is tissue flap - Bacitracin BID to let mandibular incision, TEST AND TURN UP TECHNICIAN - Will have PT eval. Left leg [...] Vega CNP Plastic Reconstructive Surgery Service Pager (7p-2a): Brittney Bhatti PA-C - 05/26/2018 6:06 AM EST [facility] ACUTE CARE SURGERY TRAUMA PROGRESS [...] Mandibular Abscess: PRS following, s/p surgeries as [id number] in place. Anaerobic cx from 05/22no growth; [...] and time: 05/21/2018 5:41 PM Med rec: [id number] Date of service: 05/26/18 Please link this note as an addendum to the Trauma Advanced Practice Provider note with the day of service listed above. The patient was seen and examined by me, the attending trauma surgeon, on multidisciplinary rounds on the date of service listed above. I have reviewed the Advanced Practice Provider note with the relevant labs, studies, and strategic sourcing consultant notes. I have reviewed and agree with the documented history, exam, and plan of care. I have made necessary additions or changes to the note to reflect my direct input. Agree with the assessment and plan as described below. Arnel Cortez II, MD, MS, [facility] Trauma, Critical Care, & Acute Care [...] of 1.39 mg/dL (H)). Pharmacist: Eve Rock RPh,PharmD,[facility] Contact Number: Vocera [employer] Pharmacist Karen Mchugh PA-C - 05/25/2018 7:37 AM EST [facility] SURGERY TRAUMA ICU [...] fluids with diet. NUTRITION - DIET: NPO RING SEWER eval pending GASTROINTESTINAL - Last Bowel Movement - BREAKFAST SUPERVISOR. Senna on. HEMATOLOGY - hgb 7.4 [...] LOS: 3. extuabted 05/24. No issues. Awaiting RING SEWER eval to start diet. Pain adequately controlled. [...] Strength, sensation, proprioception normal. No cerebellar signs. Labadie Coma Scale: EYES (4-spont, 3-to verb stim, [...] note with the relevant labs, studies, and strategic sourcing consultant notes. 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 Physical Appearance: No s/s malnutrition noted [...] Estimated Energy Needs Total Energy Estimated Needs: [id number] Method for Estimating Needs: MSJ x 1-1.2 Total Protein Estimated Needs: 109g Method for Estimating Needs: 1.5g/kg/ibw Anay Shoemaker RD, LD, [facility] [phone] [id number] Signed by Anay Shoemaker RD on 05/24/2018 2:58 PM EST Leann Zhang - 05/24/2018 12:02 PM EST 05/24/18 1000 Clinical Encounter Type Visit Type Non Crisis Non Crisis Visit Rounding Visited With Patient Visit Length (minutes) 1-15 Congregation Encounters Congregation Needs Prayer Patient lying in bed watching TV. No visitors present. Welcomes manager marketing communications but declines spiritual needs at this time. Prayer and pastoral support offered. PC will follow as requested. Kellie Montgomery CNP - 05/24/2018 8:56 AM EST PLASTIC SURGERY PROGRESS NOTE A: Honorio Prince is a 37yo male s/p repeat I&D of left mandible and external fixator applicationon 05/23/18. P: - Ok to extubate per trauma team - Bacitracin BID to let mandibular incision, TEST AND TURN UP TECHNICIAN - F/u cultures, growing GPC and GPB. [...] NEURO: . Strength, sensation, proprioception normal. No Labadie Coma Scale: EYES (4-spont, 3-to verb stim, [...] clean, dry, and intact and well approximated. [place] were removed at the bedside. Island dressing [...] Dupree MD - 05/23/2018 7:49 AM EST [facility] SURGERY TRAUMA ICU [...] Strength, sensation, proprioception normal. No cerebellar signs. Labadie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
--- OUTSIDE RECORDS SUMMARY | 2020-02-10 12:22 | XMS RPT_ITS | CCD ---
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 ([id number]) 325 MG tablet Take 3 06-10-2017 Gwyn (three) tablets (975 mg total) by mouth every 8 (eight) hours for 10 days. 90 tablet 0 05/31/2017 06/10/2017 acetaminophen (TYLENOL) 05-31-2017 - Francisco Lima [facility] ([id number]) 650 mg/20.3 mL Soln Take 05-31-2017 [place]wyn 30.45 mL (975 mg total) by mouth every 8 (eight) hours. 2740.5 mL 0 05/31/2017 05/31/2017 Discontinued acetaminophen (TYLENOL) 05-25-2017 - [facility] ([id number]) solution 975 mg 975 mg, 05-31-2017 Oral, Every 8 hours, First dose on Tue05/25/17 at 2000 Given 05/30/2017 20:12 EST 975 mg acetaminophen / oxyCODONE-acetaminophen 03-14-2017 - Mony Zimmerman oxyCODONE (PERCOCET) 7.5-325 mg per 03-22-2017 Ovi (4 [id number]) tablet Take 1 (one) tablet [place] to 2 (two) tablets by mouth every 4 (four) hours as needed for pain. 50 tablet 0 03/14/2017 03/22/2017 Discontinued oxyCODONE-acetaminophen 03-12-2017 - Ovi Pena [facility] ([id number]) (PERCOCET) 7.5-325 mg per tablet 03-14-2017 2 tablet 2 tablet, Oral, Every 4 hours PRN, moderate to severe pain, Starting 03/12/17 at 0815 Given 03/14/2017 04:39 EST 2 tablets oxyCODONE-acetaminophen 03-11-2017 - Luis Manuel Lee [facility] ([id number]) (PERCOCET) 5-325 mg per tablet 2 03-11-2017 [place] tablet 2 tablet, Oral, Once as needed, Pain, Starting 03/11/17 at 0916, For 1 dose, PACU (only), [] While in PACU when tolerating orals. [] Use oral route first, if tolerated. Given 03/11/2017 09:32 EST 2 tablets oxyCODONE-acetaminophen 02-22-2017 - Ashlie Chand [facility] ([id number]) (PERCOCET) 7.5-325 mg per tablet 03-14-2017 1 tablet 1 tablet, Oral, Every 6 hours PRN, moderate to severe pain, Starting 03/11/17 at 1105 Given 03/11/2017 13:37 EST 1 tablet oxyCODONE-acetaminophen 02-03-2017 - [facility] ([id number]) (PERCOCET) 5-325 mg per tablet 02-10-2017 Indications: Chronic osteomyelitis of facial bones (HCC) Take 1 (one) tablet by mouth every 6 (six) hours as needed for pain. 20 tablet 0 02/03/2017 02/10/2017 Active oxyCODONE-acetaminophen 01-04-2017 - [facility] ([id number]) (PERCOCET) 5-325 mg per tablet 01-14-2017 Indications: Chronic osteomyelitis of facial bones (HCC) Take 1 (one) tablet by mouth every 4 (four) hours as needed for pain. 28 tablet 0 01/04/2017 01/14/2017 Active oxyCODONE-acetaminophen 12-28-2016 - [facility] ([id number]) (PERCOCET) 5-325 mg per tablet 01-07-2017 Take 1 (one) tablet to 2 (two) tablets by mouth every 4 (four) hours as needed for pain. 65 tablet 0 12/28/2016 01/04/2017 Discontinued oxyCODONE-acetaminophen 12-21-2016 - [facility] ([id number]) (PERCOCET) 5-325 mg per tablet 2 12-28-2016 tablet 2 tablet, Oral, Every 4 hours PRN, moderate to severe pain, Starting Tu12/21/16 at 1544 Given 12/28/2016 04:10 EDT 2 tablets oxyCODONE-acetaminophen 12-07-2016 - [facility] ([id number]) (PERCOCET) 10-325 mg per tablet 12-28-2016 Take 1 (one) tablet to 2 (two) tablets by mouth every 4 (four) hours as needed for pain. 50 tablet 0 12/15/2016 12/25/2016 Suspended oxyCODONE-acetaminophen 12-01-2016 - Jorge Jamison [facility] ([id number]) (PERCOCET) 10-325 mg per tablet 12-01-2017 Indications: Open fracture of body of mandible with routine healing, unspecified laterality, subsequent encounter Take 1 (one) tablet by mouth every 4 (four) hours as needed for pain. 42 tablet 0 12/01/2016 12/08/2016 Discontinued oxyCODONE-acetaminophen 11-25-2016 - [facility] ([id number]) (PERCOCET) 5-325 mg per tablet 12-07-2016 Take 1 (one) tablet by mouth every 6 (six) hours as needed for pain Ran out 10 tablet 0 11/27/2016 12/07/2016 Suspended oxyCODONE-acetaminophen 11-22-2016 - Jose De Jesus White [facility] ([id number]) (PERCOCET) 5-325 mg per tablet 2 11-25-2016 tablet 2 tablet, Oral, Every 4 hours PRN, moderate to severe pain, Starting 11/22/16 at 1525 oxyCODONE-acetaminophen 11-11-2016 - Carolee Hunt [facility] ([id number]) (PERCOCET) 5-325 mg per tablet 11-25-2016 [place] Indications: 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 80 tablet 0 11/11/2016 11/25/2016 Discontinued adhesive bandage adhesive bandage 04-07-2017 - Mily Pollard [facility] ([place] 05-25-2017 ([id number]) DRESSING) 4 X 6 DRESSING) 4 X 6 Bndg Bndg Apply 1 Package topically 2 (two) times a day To the left mandible. 30 each 5 04/07/2017 05/25/2017 Discontinued adhesive bandage ([place] DRESSING) 04-07-2017 [facility] ([id number]) 4 X 6 Bndg Apply 1 Package topically 2 (two) times a day To the left mandible. 30 each 04/07/2017 Active adhesive bandage ([place] DRESSING) 04-07-2017 [facility] ([id number]) 4 X 6 Bndg Apply 1 Package topically 2 (two) times a day To the left mandible. 30 each 04/07/2017 Active adhesive bandage ([place] DRESSING) 04-07-2017 [facility] ([id number]) 4 X 6 Bndg Apply 1 Package topically 2 (two) times a day To the left mandible. 30 each 5 04/07/2017 Active adhesive bandage ([place] DRESSING) 04-07-2017 [facility] ([id number]) 4 X 6 Bndg Apply 1 Package topically 2 (two) times a day To the left mandible. 30 each 5 04/07/2017 Active adhesive bandage ([place] DRESSING) 04-07-2017 [facility] ([id number]) 4 X 6 Bndg Apply 1 Package topically 2 (two) times a day To the left mandible. 30 each 5 04/07/2017 Active adhesive bandage ([place] DRESSING) 04-07-2017 [facility] ([id number]) 4 X 6 Bndg Apply 1 Package topically 2 (two) times a day To the left mandible. 30 each 5 04/07/2017 Active adhesive bandage ([place] DRESSING) 04-07-2017 - 04-07-2017 [facility] ([id number]) 4 X 6 Bndg Apply 1 Package topically 2 (two) times a day To the left mandible. 30 each 04/07/2017 04/07/2017 Discontinued Albuterol 2 puff, Inhalation, Every 6 05-22-2018 - 05-27-2018 [facility] ([id number]) hours PRN, wheezing, Starting Tue05/22/18 at 0254 2 puff, Inhalation, Every 05-12-2018 - 06-05-2018 Jose De Jesus White [facility] ([id number]) 6 hours PRN, wheezing, Starting Tue05/12/18 at 1327 albuterol 90 mcg/actuation Jessenia Sahni [facility] ([id number]) inhaler Inhale 2 puffs every 6 (six) hours as needed for wheezing . Active Amoxicillin / amoxicillin-clavulanate 05-26-2018 - Tahira Cti [facility] Clavulanate (AUGMENTIN) 875-125 mg per 05-27-2018 [place] ( [id number]) tablet 1 tablet amoxicillin-clavulanate 05-26-2018 - Brittney Coles [facility] ([id number]) (AUGMENTIN) 875-125 mg per 07-21-2018 [place] tablet Take 1 (one) tablet by mouth 2 (two) times a day . 112 tablet 0 05/26/2018 07/21/2018 ampicillin-sulbactam ampicillin-sulbactam 05-24-2018 - Tahira Hayden [facility] (UNASYN) 3000 mg in (UNASYN) 3000 mg in 05-26-2018 ( 53713) sodium chloride (NS) sodium chloride (NS) 0.9% 100 mL MBP 0.9% 100 mL MBP calcium chloride / lactated Ringers 05-26-2018 - Kim Avery [facility] ealt lactate / potassium infusion 05-27-2018 Cheryl ([id number]) chloride / sodium chloride lactated Ringers infusion 05-21-2018 - 05-24-2018 [facility] ([id number]) lactated Ringers infusion 05-12-2018 - 05-13-2018 [facility] ([id number]) lactated Ringers infusion 05-25-2017 - 05-31-2017 [facility] ([id number]) 25 mL/hr, Intravenous, Continuous, Starting Tue05/25/17 at 1045, KVO Restarted 05/26/2017 10:45 EST 25 mL/hr 25 mL/hr lactated Ringers infusion 03-11-2017 - 03-14-2017 Rob Brown ms [facility] ([id number]) 25 mL/hr, Intravenous, Continuous, Starting Tue03/11/17 at 0630 New Bag 03/11/2017 07:27 EST 25 mL/hr 25 mL/hr lactated Ringers infusion 12-22-2016 - 12-22-2016 [facility] ([id number]) 50 mL/hr, Intravenous, Continuous, Starting Tue12/22/16 at 1730, For 2 hours New Bag 12/22/2016 16:50 EDT 50 mL/hr 50 mL/hr lactated Ringers infusion 12-03-2016 - 12-08-2016 [facility] ([id number]) 25 mL/hr, Intravenous, Continuous, Starting Tue12/03/16 at 0730 New Bag 12/03/2016 07:31 EDT 25 mL/hr 25 mL/hr lactated Ringers infusion 11-22-2016 - 11-25-2016 [facility] ([id number]) 25 mL/hr, Intravenous, Continuous, Starting Tue11/22/16 at 1130, KVO ceFAZolin ceFAZolin (ANCEF) 12-03-2016 - Watson Lerma [facility] IVPB 2 g (premix) 12-05-2016 ([id number]) 2,000 mg, Intravenous, at 200 mL/hr, Daily, First dose on Tue12/03/16 at 1400, Indication: Other (specify) Rate/Dose Verify 12/04/2016 08:18 EDT 200 mL/hr cefTRIAXone cefTRIAXone 12-02-2016 - [facility] (ROCEPHIN) 2000 (ROCEPHIN) 2000 mg 12-03-2016 ([id number] ) mg in sodium in sodium chloride [...] mL/hr cefTRIAXone cefTRIAXone 11-25-2016 - Kim Carrion [facility] h (ROCEPHIN) 2000 (ROCEPHIN) 2000 mg 11-25-2016 ([id number] ) mg in sodium in sodium chloride [...] 2,000 cefTRIAXone 2,000 11-25-2016 - Jorge [facility] mg in sodium mg in sodium 12-08-2016 ([id number]) chloride 0.9 % chloride 0.9 % 0.9 0.9 % 50 mL IVPB % 50 mL IVPB Infuse 2,000 (two thousand) mg into a venous catheter daily. 7 each 5 11/25/2016 12/08/2016 Discontinued cefTRIAXone 2,000 mg in 11-25-2016 - Jorge Jamison [facility] ([id number]) sodium chloride 0.9 % 0.9 12-08-2016 % 50 mL IVPB Infuse 2,000 (two thousand) mg into a venous catheter daily. 7 each 5 11/25/2016 12/08/2016 Discontinued cefTRIAXone 2,000 mg in 11-25-2016 - Sridhar [facility] ([id number]) sodium chloride 0.9 % 0.9 01-03-2017 [place] % 50 mL IVPB Infuse 2,000 (two thousand) mg into a venous catheter daily. 7 each 11/25/2016 01/03/2017 Suspended cefTRIAXone 2,000 mg in 11-25-2016 - Sridhar [facility] ([id number]) sodium chloride 0.9 % 0.9 01-03-2017 [place] % 50 mL IVPB Infuse 2,000 (two thousand) mg into a venous catheter daily. 7 each 11/25/2016 01/03/2017 Active chlorhexidine chlorhexidine 05-22-2018 - Carroll Dennys [facility] ([id number]) (PERIDEX) 0.12 % 05-26-2018 solution 15 mL chlorhexidine (PERIDEX) 05-25-2017 - [facility] ([id number]) 0.12 % solution 15 mL by 06-14-2017 Other route 4 (four) times a day for 14 days. 120 mL 1 05/31/2017 06/14/2017 chlorhexidine (PERIDEX) 03-18-2017 - Andre Cline [facility] ([id number]) 0.12 % solution 15 mL. 05-31-2017 03/18/2017 05/31/2017 Discontinued chlorhexidine (PERIDEX) 12-02-2016 - [facility] ([id number]) 0.12 % solution 15 mL 15 03-14-2017 mL, Swab, 2 times daily, First dose on [place] 12/02/16 at 1200 Given 12/07/2016 08:22 EDT 15 mL chlorhexidine (PERIDEX) 11-22-2016 - Jose De Jesus White [facility] ([id number]) 0.12 % solution 15 mL 15 11-25-2016 mL, Swab, 2 times daily, First dose on 11/22/16 at 2100 chlorhexidine (PERIDEX) [facility]-05-2016 [facility][id number][facility] 0.12 % solution Apply 15 11-19-2016 mL to the mouth or throat 2 (two) times a day for 14 days. 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 14 tablet 0 11/11/2016 11/18/2016 clindamycin clindamycin (CLEOCIN) 05-13-2018 - Jazmyne Ray [facility] ([id number]) 300 MG capsule Take 1 05-27-2018 (one) capsule (300 mg total) by mouth 3 (three) times a day for 5 days . 15 capsule 0 05/18/2018 05/27/2018 Discontinued clindamycin (CLEOCIN) 05-12-2018 - Melina Fried [facility] ([id number]) IVPB 600 mg (premix) 05-13-2018 clindamycin (CLEOCIN) 300 01-04-2017 - [facility] ([id number]) MG capsule Indications: 02-03-2017 Chronic osteomyelitis of facial bones (HCC) Take 1 (one) capsule (300 mg total) by mouth 3 (three) times a day. 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 30 capsule 0 11/11/2016 11/25/2016 Discontinued clindamycin (CLEOCIN) 300 Mily Latrice [facility] ([id number]) MG capsule Take 300 mg by mouth 3 (three) times a day. Suspended docusate / 1 tablet, Oral, 2 times 05-13-2018 - [facility] ([id number]) sennosides, chcf daily, First dose on Tue05-28-2018 05/22/18 at 0900 Hold for loose stools Do Not Crush or Chew if administering orally due to bitter taste. May be crushed if given via tube. senna-docusate (SENNA-S) 05-12-2018 - [facility] ([id number]) 8.6-50 mg per tablet 1 05-13-2018 tablet senna-docusate (SENNA-S) 12-07-2016 - Erlinda Long [facility] ([id number]) 8.6-50 mg Take 1 (one) 12-28-2016 tablet by mouth 2 (two) times a day for 15 days. 30 tablet 0 12/07/2016 12/28/2016 Discontinued senna-docusate (SENNA-S) 12-02-2016 - [facility] ([id number]) 8.6-50 mg per tablet 1 12-08-2016 tablet 1 tablet, Oral, 2 times daily, First dose on [place] 12/02/16 at 1200, NOT for abdominal surgery patients. Hold for loose stools. Do Not Crush or Chew if administering orally due to bitter taste. May be crushed if given via tube. Given 12/07/2016 08:21 EDT 1 tablet doxycycline doxycycline hyclate 02-22-2017 - [facility] ([id number]) (VIBRA-TABS) 100 MG 03-14-2017 tablet Indications: Chronic osteomyelitis of facial bones (HCC) Take 1 (one) tablet (100 mg total) by mouth 2 (two) times a day. 14 tablet 0 02/22/2017 03/14/2017 Discontinued doxycycline hyclate (VIBRA-TABS) 100 MG tablet 02-03-2017 [facility] ([id number]) Indications: Chronic osteomyelitis of facial bones (HCC) Take 1 (one) tablet (100 mg total) by mouth 2 (two) times a day. 14 tablet 0 02/03/2017 Active enoxaparin enoxaparin 05-22-2018 - Peyotn Andrea [facility] ([id number]) (LOVENOX) syringe 05-27-2018 [place] 30 mg 40 mg, Subcutaneous, 05-12-2018 - 05-13-2018 Jose De Jesus White [facility] ([id number]) Daily, First dose on Tue05/12/18 at 2000 Administer in abdomen unless otherwise directed by prescriber. Notify physician if patient refuses. enoxaparin (LOVENOX) 12-21-2016 - 12-28-2016 [facility] ([id number]) syringe 40 mg 40 mg, Subcutaneous, Daily, First dose on Tue12/21/16 at 2000, Administer in abdomen unless otherwise directed by prescriber. Notify physician if patient refuses. Given 12/25/2016 19:50 EDT 40 mg Abdominal Tissue enoxaparin (LOVENOX) 12-03-2016 - 12-08-2016 Pat Thomas [facility] ([id number]) syringe 40 mg 40 mg, Subcutaneous, Daily, First dose on Tue12/03/16 at 1215, Administer in abdomen unless otherwise directed by prescriber. Notify physician if patient refuses. Given 12/06/2016 08:04 EDT 40 mg enoxaparin (LOVENOX) 11-22-2016 - 11-25-2016 Jose De Jesus White [facility] ([id number]) syringe 40 mg 40 mg, Subcutaneous, Daily, First dose on Tue11/22/16 at 1615, Administer in abdomen unless otherwise directed by prescriber. Notify physician if patient refuses. Famotidine famotidine (PEPCID) 05-26-2018 - Carroll Noyola [facility] ([id number]) tablet 40 mg 05-27-2018 famotidine (PEPCID) injection 05-23-2018 - 05-26-2018 Carroll Gold [facility] ([id number]) 20 mg 20 mg, Oral, Daily, First 05-13-2018 - 05-13-2018 Jose De Jesus White [facility] ([id number]) dose on 05/13/18 at 0900 fentaNYL fentaNYL 05-22-2018 - Eve Rock [facility] (SUBLIMAZE) bolus (SUBLIMAZE) bolus 05-25-2018 ([id number]) from bag 50-100 from bag 50-100 mcg mcg fentaNYL fentaNYL 05-22-2018 - Debra Swanson [facility] (SUBLIMAZE) (SUBLIMAZE) 05-25-2018 [place] ([id number]) infusion 2,500 infusion 2,500 mcg/250 mL in NS mcg/250 mL in NS FLUoxetine 20 mg, Oral, 05-22-2018 - [facility] Daily, First dose 05-27-2018 ([id number]) on 05/22/18 at 0900 20 mg, Oral, Daily, First 05-13-2018 - 05-13-2018 Jose De Jesus White [facility] ([id number]) dose on 05/13/18 at 0900 FLUoxetine (PROZAC) 20 MG [facility] ([id number]) capsule Take 40 mg by mouth daily . 0 Active fluoxetine HCl (PROZAC 05-21-2018 Jaz[facility]ne Ray [facility] ([id number]) ORAL) Take by mouth daily with breakfast . 0 05/21/2018 Discontinued fluoxetine HCl (PROZAC Jessenia Sahni [facility] ([id number]) ORAL) Take by mouth daily with breakfast . 0 Active fluoxetine HCl (PROZAC Jessenia Bartholow [facility] ([id number]) ORAL) Take by mouth daily with breakfast . 0 Active fluoxetine HCl (PROZAC Jessenia Bartholow [facility] ([id number]) ORAL) Take by mouth daily with breakfast . Active Glucose / Sodium dextrose 5 % and 05-24-2018 - [facility] Chloride sodium chloride 0.45 05-25-2018 ([id number]) % infusion Glycopyrrolate glycopyrrolate 05-22-2018 - Juan Carlos Octavio [facility] (ROBINUL) injection 05-22-2018 ([id number]) 0.2 mg HYDROmorphone HYDROmorphone 05-25-2017 - Ana Harris [facility] (DILAUDID) injection 05-25-2017 ([id number]) 0.25 mg 0.25 mg, Intravenous, Every 5 min PRN, moderate to severe pain, Starting Tue05/25/17 at 1335, For 8 doses, PACU (only), [] Give if fentanyl not effective or not ordered. [] Do not give more than 2.0 mg total. Given 05/25/2017 14:15 EST 0.25 mg HYDROmorphone (DILAUDID) 03-11-2017 - Luis Manuel [facility] ([id number]) 1 mg/mL injection 0.5 mg 03-11-2017 0.5 mg, Intravenous, Every 10 min PRN, Pain, Starting 03/11/17 at 0916, For 6 doses, PACU (only), [] Give if fentanyl not effective or not ordered. [] Do not give more than 3 mg total. Given 03/11/2017 09:32 EST 0.5 mg HYDROmorphone (DILAUDID) 12-24-2016 - Yolanda Montana [facility] ([id number]) 1 mg/mL injection 0.25 mg 12-24-2016 0.25 mg, Intravenous, Every 5 min PRN, moderate to severe pain, max of 1.5mg, Starting Tue12/24/16 at 1203, For 6 doses, PACU (only) Given 12/24/2016 12:13 EDT 0.25 mg HYDROmorphone (DILAUDID) 12-22-2016 - [facility] ([id number]) 1 mg/mL injection 0.5 mg 12-22-2016 0.5 mg, Intravenous, Every 10 min PRN, moderate to severe pain, Starting 12/22/16 at 1651, For 6 doses, PACU (only), [] Give if fentanyl not effective or not ordered. [] Do not give more than 3 mg total. Given 12/22/2016 17:42 EDT 0.5 mg HYDROmorphone (DILAUDID) 12-07-2016 - [facility] ([id number]) 1 mg/mL injection 0.5 mg 12-08-2016 0.5 mg, Intravenous, Every 4 hours PRN, moderate to severe pain, Starting Tu12/07/16 at 1015 Given 12/07/2016 14:44 EDT 0.5 mg HYDROmorphone (DILAUDID) 12-06-2016 - [facility] ([id number]) 1 mg/mL injection 0.75 mg 12-07-2016 0.75 mg, Intravenous, Every 3 hours PRN, moderate to severe pain, Starting Tue12/06/16 at 1044 Given 12/06/2016 23:22 EDT 0.75 mg HYDROmorphone (DILAUDID) 12-03-2016 - [facility] ([id number]) 1 mg/mL injection 1 mg 1 12-06-2016 mg, Intravenous, Every 2 hour PRN, moderate to severe pain, Starting Tue12/03/16 at 1121 Given 12/05/2016 20:53 EDT 1 mg HYDROmorphone (DILAUDID) 12-03-2016 - [facility] ([id number]) 1 mg/mL injection 0.5 mg 12-03-2016 0.5 mg, Intravenous, Every 10 min PRN, Pain, Starting Tue12/03/16 at 0946, For 6 doses, PACU (only), [] Give if fentanyl not effective or not ordered. [] Do not give more than 3 mg total. Given 12/03/2016 10:12 EDT 0.5 mg HYDROmorphone (DILAUDID) 11-22-2016 - [facility] ([id number]) 1 mg/mL injection 0.5 mg 11-22-2016 0.5 mg, Intravenous, Every 5 min PRN, moderate to severe pain, Starting Tue11/22/16 at 1400, For 6 doses, PACU (only), [] Give if fentanyl not effective or not ordered. [] Do not give more than 3 mg total. HYDROmorphone 0.25 mg, 05-12-2018 - Suzie Pabon [facility] (DILAUDID) 0.5 mg/mL Intravenous, Every 5 05-12-2018 [place] ([id number]) injection 0.25 mg min PRN, moderate to severe pain, Starting Tue05/12/18 at 1025, For 6 doses, PACU (only) [] Do not give more than 1.5 mg total. HYDROmorphone HYDROmorphone 05-24-2018 - [facility] (DILAUDID) 0.5 mg/mL (DILAUDID) 0.5 mg/mL 05-26-2018 ([id number]) injection 0.5 mg injection 0.5 mg HYDROmorphone (DILAUDID) 05-22-2018 - Yolanda Lopez [facility] ([id number]) 0.5 mg/mL injection 0.5 05-22-2018 mg HYDROmorphone (DILAUDID) 05-21-2018 - Julio Cesar Brewer [facility] ([id number]) 0.5 mg/mL injection 0.5 05-21-2018 Jorje mg HYDROmorphone (DILAUDID) 05-21-2018 - [facility] ([id number]) 0.5 mg/mL injection 0.5 05-21-2018 mg hypochlorite sodium hypochlorite 12-22-2016 - Quique Mccallum [facility] (DAKIN'S 12-24-2016 [place] ([id number]) (HALF-STRENGTH)) 0.25 % external solution Topical, 2 [...] tube. ibuprofen (ADVIL,MOTRIN) 03-18-2017 - Jazmyne Ray [facility] ([id number]) 600 MG tablet Take 600 mg 05-27-2018 by mouth every 8 (eight) hours as needed . 0 03/18/2017 05/27/2018 Discontinued ibuprofen (ADVIL,MOTRIN) 03-18-2017 Jessenia Sahni [facility] ([id number]) 600 MG tablet Take 600 mg by mouth every 6 (six) hours as needed . 0 03/18/2017 Active ibuprofen (ADVIL,MOTRIN) 03-11-2017 - [facility] ([id number]) tablet 600 mg 600 mg, Oral, 03-14-2017 Every 8 hours PRN, mild pain, Starting 03/11/17 at 1105, Give with Food Do Not Crush or Chew if administering orally due to bitter taste. May be crushed if given via tube. Given 03/11/2017 18:45 EST 600 mg ibuprofen (ADVIL,MOTRIN) 12-07-2016 - [facility] lt ([id number]) 600 MG tablet Take 1 (one) 01-11-2017 tablet (600 mg total) by mouth every 6 (six) hours for 14 days. 56 tablet 0 12/28/2016 01/11/2017 Active ibuprofen (ADVIL,MOTRIN) 12-06-2016 - Ovi Chuckdwaine [facility] ([id number]) tablet 600 mg 600 mg, Oral, 12-08-2016 Every 6 hours, First dose on Tue12/06/16 at 1200, Give with Food Do Not Crush or Chew if administering orally due to bitter taste. May be crushed if given via tube. Given 12/07/2016 23:41 EDT 600 mg ibuprofen (ADVIL,MOTRIN) 12-02-2016 - [facility] ([id number]) tablet 200 mg 200 mg, Oral, 12-06-2016 Every 6 hours PRN, fever 100.4 F or greater, headaches, mild pain, Starting Daphney 12/02/16 at 1111, Give with Food Do Not Crush or Chew if administering orally due to bitter taste. May be crushed if given via tube. Given 12/02/2016 13:19 EDT 200 mg ibuprofen (ADVIL,MOTRIN) 12-08-2016 Jorge Swift [facility] ([id number]) 200 MG tablet Take 200 mg by mouth every 6 (six) hours as needed for pain. 12/08/2016 Discontinued iopamidol iopamidol 11-10-2017 - Duyen Marie [facility] ( 43103) (ISOVUE-370) 76 % 11-10-2017 Ben injection 75 mL iopamidol (ISOVUE-370) 76 % 05-27-2017 - 05-27-2017July Pepper Ann rs [facility] ([id number]) injection 75 mL 75 mL, Intravenous, Once in imaging, contrast, Starting 05/27/17 at 0726, For 1 dose Contrast Administered 05/27/2017 08:56 EST 75 mL iopamidol (ISOVUE-370) 76 % 02-03-2017 - 02-03-2017 Jazmyne Oseguera in [facility] (43570) injection 75 mL 75 mL, Intravenous, Once in imaging, contrast, Starting Daphney 02/03/17 at 1120, For 1 dose Contrast Administered 02/03/2017 11:20 EDT 60 mL ketorolac ketorolac (TORADOL) 11-23-2016 - Ana Harris [facility] ([id number]) injection 30 mg 30 11-25-2016 mg, Intravenous, Every 6 hours, First dose on Tue11/23/16 at 1200, For 48 hours, Give with Food Labetalol 5 mg, Intravenous, 05-12-2018 - Suzie Rosario [facility] (21952) Every 5 min PRN, SBP 05-12-2018 greater than 160 or DBP greater than 90, Starting 05/12/18 at 1025, For 4 doses, PACU (only) [] Do not give more than 20 mg total. [] Hold for HR less than 50. lidocaine lidocaine (XYLOCAINE) 05-22-2018 - Ethan Cox [facility] ([id number]) 4 % (40 mg/mL) 05-22-2018 external solution lidocaine 1% (XYLOCAINE) 10 05-25-2017 - 05-25-[address] [facility] (64105) mg/mL (1 %) injection 0.2 mL 0.2 mL, Intradermal, Once, 05/25/17 at 1045, For 1 dose, Pre-Procedure, Around site prior to IV insertion. Given 05/25/2017 10:12 EST 0.2 mL lidocaine HCl (LIDOPIN) 3 % 05-27-2018 [facility] (55313) Crea Apply 1 application topically . 0 05/27/2018 Discontinued morphine 4 mg, Intravenous, 05-12-2018 - Jose De Jesus White [facility] (30918) Every 2 hour PRN, 05-13-2018 moderate to severe pain, Starting 05/12/18 at 1327 morphine 4 mg 4 mg, 05-28-2017 - Nishant Maradiaga [facility] ([id number]) Intravenous, Every 10 min 05-28-2017 PRN, Pain, Starting 05/28/17 at 0905, For 5 doses, PACU (only), [] Give if fentanyl not effective or not ordered. [] Do not give more than 20 mg total. Given 05/28/2017 09:12 EST 4 mg morphine 4 mg 4 mg, 03-11-2017 - [facility] ( 02505) Intravenous, Every 2 hour 03-14-2017 PRN, moderate to severe pain, Starting 03/11/17 at 1105 Given 03/11/2017 23:40 EST 4 mg morphine 2 mg 2 mg, 12-24-2016 - [facility] ( 49049) Intravenous, Every 2 hour 12-28-2016 PRN, moderate [...] mg, 11-22-2016 - Jose De Jesus Schulz [facility] ( 35216) Intravenous, Every 2 hour 11-25-2016 PRN, moderate to severe pain, Starting 7/31/17 at 1525 naloxone (NARCAN) naloxone (NARCAN) 05-22-2018 - Campos Pepper Cristina [facility] ([id number]) injection 0.1 mg injection 0.1 mg 05-27-2018 naloxone (NARCAN) injection 0.1 mg 05-12-2018 - 05-13-2018 [facility] (76705) Ondansetron ondansetron (ZOFRAN) 05-22-2018 - Sarah Esqueda [facility] (94599) injection 4 mg 05-27-2018 Ace 4 mg, Intravenous, Every 6 05-12-2018 - 05-13-2018 Jose De Jesus White [facility] (61733) hours PRN, nausea, vomiting, Starting Tue05/12/18 at 1327 Oxycodone Er 10 Mg oxyCODONE 12-21-2016 - [facility] h Tablet,Crush (OXYCONTIN) 12 hr 12-28-2016 (03669) Resistant,Extended tablet 10 mg 10 Release 12 Hr mg, Oral, Every 12 hours scheduled, First dose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 predicted among be used for (4 2203) non-blacks MDRD vol monitoring renal rate/area (S/P/Bld) function only and not for medication dosing. GFR/1.73 sq 48 >=60 Low 05-24-2018 [facility] lth M.predicted CKD-EPI mL/min/1. (88238) vol rate/area 73 m2 (S/P/Bld) Glucose mass conc 74 65 - 99 mg/dL 05-24-2018 [facility] (81050) HCO3 molar conc 19 21 - 32 mmol/L Low 05-24-2018 [facility] (52545) Interpretation and Abnormal 05-24-2018 [facility] review of laboratory (19592) results Potassium molar conc 4.5 3.5 - 5.1 mmol/L 9 [facility] (03488) Sodium molar conc 142 135 - 145 mmol/L 05-24-2018 [facility] (47550) Urea nitrogen mass 18 8 - 25 mg/dL 05-24-2018 [facility] conc (34278) Urea 10.3 OTH - OTH mg/mg 05-24-2018 [facility] h nitrogen/Creatinine (85517) mass ratio Vancomycin mass conc 22.2 mcg/mL 9 [facility] (67582) No established 05-24-2018 [facility] reference range. (43 215) No panel information on 2018-05-23 Vancomycin mass conc 34.4 mcg/mL 9 [facility] (27725) No established 05-23-2018 [facility] reference range. (43 215) Glucose mass conc 88 65 - 99 mg/dL 05-23-2018 [facility] (03072) Interpretation and Normal 05-23-2018 [facility] review of laboratory (97562) results Case Report Surgical Pathology Report Case: [id number] 05-23-2018 [facility] Authorizing Provider: Felix De Leon MD Collected: 05/22/2018 10:00 AM ([id number]) Ordering Location: [facility] Received: 05/22/2018 10:30 AM Periop Pathologist: Luis Manuel Flores MD Specimen: Bone, Please Specify, left jaw bone Pathology report [id number] 2018 [facility] final diagnosis EkVePYMiWFTea9mp (42460) Narrative ZGVmbGFuZzEwMzNc ZnRuYmpcdWMxXGRl AxZct7zpp031rQWc a4xkQBUyXsM6yERk YRGcwWDzT856FJUp QRcby0fmx1YdFFQh wRGlv1W7PDZKkyyt hFp7rJeeK00xz2T0 JswgU1gdUHIuHJuu ZWVuMFxibHVlMCA7 QXTsBTM4WYdtyoVb aaK9AFzrvJHhSyX0 SXd5w6cuySpiVELc JAH2z0mgGIdpyuNr TS9zjq0hlAa3l9ka czEgRGVmYXVsdCBQ JVQaS0TnkYdhSb4a pNp6kIixIhnrZNG7 Ozd1DU4zxo25qec9 fVxwYXBlcncxMjI0 MFxwYXBlcmgxNTg0 MFxtYXJnbDcyMFxt YXJncjcyMFxtYXJn jOC1EJPqqURgL4Sy NDQwXGhlYWRlcnk3 VkVmGr6zmKYrlUBt mb3sib68FAR7q5Fh rYkhVNG5BNA8EhZd Yu9qlCXfZXXcFL6j YwJleVTiOUJsqi31 dQqhXIbepxLieQ6q YmRiXGZldDRcYWVu IP2wgMZkPYNvfO4g cmxjXHBnYnJkcmhl KBBohIabxxOvVl6g zGueKRB8CKecF1wx hQ4wHmA4RCehX6lh bX1uOPi2TWdjuGG5 VHCnkC0hDO3vlloj n7yvOzJqYR6zsrer h8xwQoMvDV0lucl8 o0wkURM9DFjmDHBu XxS8zfL5SZZgfHQo LPQnfDecHCnob271 TLX6IPldNaydUKou XHBnbmNvbnRccGdu ZGVjXHBsYWluXHBs YWluXGYwXGZzMjBc bVoevAdokW8uVuQz ZnMyMFxwbGFpblxm MVxmczIyXGxhbmcx WGNqVDjpU0izXiJt ZJTvrRacLKkla1Jt XGYxXGNmMVxmczIy XGJccGFyIExlZnQg xyT2MASrzpCpMFHq XpOwQLVnQI33Xbjg YXJccGFyXGxpNzIw XHBsYWluXGYwXGZz LkOskEqldV9jZbMf ZiGoMafuYM3wPIFx Q3mwjNIsXIPpHNJw Q8urYxOgwU1apUqv MVxjZjFcZnMyMlxi UZYmsOSvZV1tsBGl gGmndZo7cORyPRWw hanzlKFrkOqodZ2w ZjBcZnMyMFxwbGFp blxmMVxmczIyXGxh ijizYOZtBLygX3do ZjFcZGJjaFxmMVxs n3QqPIXzLVKzGFcf czIyXGJccGFyXHBs YWluXGYxXGZzMTZc bGFuZzEwMzNcaGlj aFxmMVxkYmNoXGYx ZTriC4mlQnSjL4Dv JZFjCNAhPgPEJ559 c6ipwXTujcmnHBeo czIyXGxhbmcxMDMz IZcdQ5irFpExLAJo gNrlSDssh8McNODn XGNmMVxmczIyXGJc cGFyXHBhclxwbGFp blxmMFxmczIwXHBh cn0= Pathology report m8agkQIiCKDyvLJe 2018 [facility] gross observation PsQcAJRjIIJgq4sh ([id number]) Narrative ZGVmbGFuZzEwMzNc ZnRuYmpcdWMxXGRl HcIjx8ibl534iLKi b9bsJZGzCgI1jJKm ZPXrcOOpX123JTFa APgiim4cFO0eJXIq lSUpj7M6WNTRiuwq rIy4e0stEsVyPsS9 nEKhLDybP5iisqXa cCRlPVTbFDy2yI86 XZMamZ7yxRDpSMrx cmVkMFxncmVlbjBc Ilq1YKIaQ8avNVCr FWYqH6ZkQJ0jSTLf Puv8VEH7ANN0BSLu ZDIyMVxncmVlbjI0 RDtfxTNaVlW5BIl6 z9qlqUizEHCyQUH7 q8idUBbtqgIbTO8a vk7fvTx1y8dqavCc RGVmYXVsdCBQYXJh R5ZbzEdkIn7vxNn2 tCfsMbeoEMN5Xws8 GM9air02kyw5mGaj HMHfjbieIgF1HQto QDNjhlyjPWq8QLsj YXJnbDcyMFxtYXJn cjcyMFxtYXJndDE0 UWCzfYXsG7XxEGHn QBnwLVRsbys5GlRg Lj1ahPTouZQryp4i bj80MUZ5s5KglKvy XTX9TJC2SdIoLd3p iJWjOSPmWP0zQaOc lELrILLugr57pSis GZnmhzVwmH3hYfXd XGZldDRcYWVuZGRv U4fpAcVdixUeW6fc I6FxEXRkVQJfFATo SiGivlAhl2Tao9Rn eZPccUq1w9pvUWXa MRPkoFvmg4ysFMJ5 BNAjC0A8vQFeh2mr IQvdWANebMY3gdxt NQyfFDNnchT7vofk JKjmXVGczPL3xjH8 ZLPyaGXrI9UrmU8w NDQwXGhlYWRlcnk3 CmHbGd6blMGkkVEz l0LpyYElARemY66z p866XZAwirOsZ3im bGFpblxwbGFpblxm MFxmczIwXHFsXHBs YWluXGYwXGZzMjBc mXstsE0sVsIvDkBq GRbgZA8wFGXzD6ko nNTpMKGgQQWuO1xw RdIieP4tfBdzBVmc ZjFcZnMyMFxsdHJj aCBSZWNlaXZlZCBp lwLjv2UcCTtemjQc YWJlbGVkICJccGxh aU0mVxQfHmWrNNju JC2rQXJiR6jvzGAh IGSmJLIbQ9vbCeQv aW9rmMczHLrhSpTc EzHwJFqmbg73JCV4 t8bziBSxTXbjVhiz eUEuhsM6YFtQFYHS CCmWErVhTT2eTTuS TktCRUdJTnwzODAw SErilBRDRIgOS6y7 OHSNPH1bJOdgCts2 QM95XTExLQAfjPAd RXxuH634SROhLSox XGYxXGZzMjBcbGFu ZzEwMzNcaGljaFxm MVxkYmNoXGYxXGxv P9voIvPlB1LxTVYb MjBccHJvdGVjdCBU JXesb3OpXPOrfRrl E7wazUJwbwmbNMkp czIwXGxhbmcxMDMz EWzqP3woWcRaXUSf lUtkTMsac1UzLICs XGNmMVxmczIwXHBy r7KxP9I7JIYyPYfx r2leMWYnTIjut9Yv IYiHXLLZPU5HKR2d qCF2KWiNX7NPMIjo ODAwMXwwfERCTElO D8j8NGGOSS5vOWgv Gfk4GZ32RXRrDZBm uSOuQYldO043YGJc YWluXGYxXGZzMjBc bGFuZzEwMzNcaGlj aFxmMVxkYmNoXGYx AVcxZ8uoZwAiK5Wb YUEhNkNuhECzD4pe IiBhbmQgZGVzaWdu YXRlZCAiXHBsYWlu XGYyXGZzMjAgbGVm yZFgWSdoeQlouM0i VlVkGyKyFZdkVM9y LXMdJ1xrhOJzRIJu DRVmI3zlLcCxrD9e aFxmMVxjZjFcZnMy MFxsdHJjaCAiXHBs YWluXGYyXGZzMjAg GUxvTSKdecXrZ9Yh RPHbcpOiy74xe3Xb Mi8vWZneKw6kEZiu VR04FDekRB71NHMg LiAgVGhlIHNwZWNp ySUbJZbrFLPbt5Ts dGVkLiAgQWxsIDIv NQ5sKVObR5YtX2bs aWVkLlxwYXJccGFy EEzARd0ZEHeaHJFf IFxwYXJccGFyIEdy a5OyVAM3LI9mgoK2 aD8aIQPivpPkjn4y LGTtsMfoLob1CKXm iNIvSW4bxSxoHLiw hJDSj6JqqIPzdEAx ELZ5KkDdF4necmAs iap9MOBhkiOeEHYi CKUxR95bbJ7pePTs KC1YZZPsOzJ3YOXt cn0= Pathology report k8gwgBToXHAhgPVq 2018 [facility] microscopic QgAkMYQnZYAfs2zl ( 76122) observation ZGVmbGFuZzEwMzNc Narrative Other ZnRuYmpcdWMxXGRl stain SmPqm4glx972nCMu o1laVGXpFhD6hWIm CSJsrSTaP549LPDp LSdyl8hck6DoAONj uANak5L5BTNNrgkv fJe2eEehW09gy8K7 GychL6xwDIEpONTj S4YaXL6jQQVvNbt1 XTC8YVP6JZOsLGFh M0QaZP9yZSJslTMp GLf8x9xdqVuxFGQy KRZ4b8igEVbigcPo ML6whc3rsBf3p3jl czEgRGVmYXVsdCBQ UZClN4FsqGbwQb9x mFv0lUjzJydgBGC0 Xpt4HK0ipz38qph2 fVxwYXBlcncxMjI0 MFxwYXBlcmgxNTg0 OHchCSBmlZL8NGWf tGBiD6CqQBOhVV8f pgw1XOJ6OByyUKQd DjX3GXDhvGMgNHQa bCwaVBbdd084MOC9 MbIaMF8nJ1Yus4G2 hK6pmZRfXQHjtXPu BpMvZQHxck5juQLv FMktz6ZnTFB7sfA6 hPFpjOCxSRCxZE35 Aolws8DgRkukEMB3 CZEuufQfj2Jqo4gm YoDbitCyE9fdJ9Gi ZHJoZWFkXHBnYnJk pwDgj3Sbh4EnxOGu fRo5t5lhYAWxZIHg nJulr8miUXE7ERPu F6L9fHJwe8xoOGam UJCouWV1igC7KGGu gPZsP5PwvK8nDQAo PC0cpzm5a5qoJLT5 FGegOWJhHvV9szE7 NDBcaGVhZGVyeTcy KQdpl060JPG9TxPp PUSih4KuU0QqvCwv A06crAvxF65oVZAv mElmoM2hpZqubD9j ZjBcZnMyNFxxbFxw bGFpblxmMVxmczIw XGxhbmcxMDMzXGhp Z4leHpJuZSFjjHrc LBasl9XqFRIvLSMi VhPzAEefao5vG86a aWMgZXhhbWluYXRp i98kvIIztPNdFq7k bWVkLlxwYXJ9 Erythrocyte 13.9 11.6 - 14.8 % 05-23-2018 [facility] ealth distribution width ( 83839) Entitic volume (RBC) Hematocrit Volume 26.5 41 - 53 % Low 05-23-2018 [facility] Fraction (Bld) (4321 5) Hemoglobin mass conc 8.6 13.5 - 17.5 g/dL Low 019 [facility] (Bld) (40897) Interpretation and Abnormal 05-23-2018 [facility] review of laboratory (23266) results MCH Entitic mass 28.9 26 - 34 pg 05-23-2018 [facility] (RBC) (07763) MCHC mass conc (RBC) 32.5 31 - 37 g/dL 9 [facility] (92481) MCV Entitic volume 88.9 80 - 100 fL 05-23-2018 [facility] (RBC) (53901) Nucleated RBC #/vol 0.00 OTH - OTH 10*3/uL 05-23-2018 [facility] (Bld) (49035) Nucleated RBC/100 0.0 % 05-23-2018 [facility] WBC Ratio (Bld) (432 15) Platelet mean volume 10.6 9 - 15.5 fL 9 [facility] Entitic volume (Bld) (73630) Platelets #/vol 419 OTH - OTH 10*3/uL High 05-23-2018 [facility] (Bld) (61515) RBC #/vol (Bld) 2.98 OTH - OTH 10*6/uL Low 05-23-2018 [facility] (34613) WBC #/vol (Bld) 8.47 OTH - OTH 10*3/uL 05-23-2018 [facility] (86622) Anion gap molar conc 17 10 - 20 mmol/L 9 [facility] (46666) Calcium mass conc 8.3 8.4 - 10.2 mg/dL Low 05-23-2018 [facility] (10013) Chloride molar conc 106 98 - 108 mmol/L 05-23-2018 [facility] (65337) Creatinine mass conc 1.65 0.5 - 1.3 mg/dL High 9 [facility] (93000) GFR/1.73 sq M The eGFR should 05-23-2018 [facility] predicted among be used for (4 1561) non-blacks MDRD vol monitoring renal rate/area (S/P/Bld) function only and not for medication dosing. GFR/1.73 sq 52 >=60 Low 05-23-2018 [facility] M.predicted CKD-EPI mL/min/1.73 (95160) vol rate/area m2 (S/P/Bld) Glucose mass conc 79 65 - 99 mg/dL 05-23-2018 [facility] (28534) HCO3 molar conc 20 21 - 32 mmol/L Low 05-23-2018 [facility] (09643) Interpretation and Abnormal 05-23-2018 [facility] review of laboratory (57766) results Potassium molar conc 4.4 3.5 - 5.1 mmol/L 9 [facility] (65101) Sodium molar conc 139 135 - 145 mmol/L 05-23-2018 [facility] (13993) Urea nitrogen mass 21 8 - 25 mg/dL 05-23-2018 [facility] conc (90767) Urea 12.7 OTH - OTH mg/mg 05-23-2018 [facility] h nitrogen/Creatinine (50044) mass ratio Base excess -1.6 OTH - OTH mmol/L 05-23-2018 [facility] Calculated molar (43 215) conc (Bld) Calcium.ionized mass 4.5 4.5 - 5.3 mg/dL 9 [facility] conc (79109) Carboxyhemoglobin/He 1.0 OTH - OTH 9 [facility] moglobin.total mass (22485) fraction (BldA) Comment: Reference Ranges: [facility] Non-smokers:<1.5% Smokers:1.5-5.0% Heavy Smokers:5.0-9.0% CO2 ppres (Bld) 37.7 OTH - OTH mm[Hg] 05-23-2018 [facility] (12338) Glucose mass conc 79 65 - 99 mg/dL 05-23-2018 [facility] (84455) HCO3 molar conc (Bld) 22.5 22 - 26 mmol/L 05-23-19 19 [facility] (02273) Hematocrit Volume 26.3 41 - 53 % Low 05-23-2018 [facility] Fraction (BldA) (432 15) Hemoglobin mass conc 8.5 13.5 - 18 g/dL Low 9 [facility] (Bld) (87892) Inhaled oxygen 30 %/L 05-23-2018 [facility] concentration (31472 ) Interpretation and Abnormal 05-23-2018 [facility] review of laboratory (60104) results Lactate molar conc 0.6 0.6 - 2 mmol/L 05-23-2018 [facility] (64300) Methemoglobin/Hemoglo 0.6 0 - 2 % 05-23-19 19 [facility] bin.total mass (4321 5) fraction (BldA) Oxygen ppres (Bld) 131 OTH - OTH mm[Hg] High 05-23-2018 [facility] (60690) Oxyhemoglobin/Hemoglo 97.1 94 - 98 % 05-23-19 19 [facility] bin.total mass (4321 5) fraction (BldA) PEEP Res[facility] 5 [facility] pH (Bld) 7.39 OTH - OTH [pH] [facility] Potassium molar conc 3.7 3.5 - 5.1 mmol/L 9 [facility] (20115) SaO2% mass fraction 98.7 92 - 99 % 05-23-2018 [facility] (BldA) (45943) Sodium molar conc 134 135 - 145 mmol/L Low 05-23-2018 [facility] (12510) Tidal volume setting 430 9 [facility] Ventilator (49806) Type of Oxygen Ventilator 05-23-2018 [facility] saturation device (4 1695) ABO and Rh group Nom O Positive 05-23-19 [facility] (Bld) (10147) Blood group antibody Negative 9 [facility] screen Ql (93153) Specimen Expires 05/26/2018 23:59 2018 [facility] EST (32108) Anion gap molar conc 15 10 - 20 mmol/L 9 [facility] (20073) Calcium mass conc 8.3 8.4 - mg/dL Low 05-23-2018 [facility] 10.2 (93371) Chloride molar conc 102 98 - 108 mmol/L 05-23-2018 [facility] (34154) Creatinine mass conc 1.63 0.5 - 1.3 mg/dL High 9 [facility] (02002) GFR/1.73 sq M The eGFR should 05-23-2018 [facility] predicted among be used for (4 0598) non-blacks MDRD vol monitoring renal rate/area (S/P/Bld) function only and not for medication dosing. GFR/1.73 sq 52 >=60 Low 05-23-2018 [facility] M.predicted CKD-EPI mL/min/1. (84680) vol rate/area 73 m2 (S/P/Bld) Glucose mass conc 77 65 - 99 mg/dL 05-23-2018 [facility] (60578) HCO3 molar conc 21 21 - 32 mmol/L 05-23-2018 [facility] (42115) Interpretation and Abnormal 05-23-2018 [facility] review of laboratory (33770) results Potassium molar conc 4.1 3.5 - 5.1 mmol/L 9 [facility] (30287) Sodium molar conc 134 135 - 145 mmol/L Low 05-23-2018 [facility] (50624) Urea nitrogen mass 21 8 - 25 mg/dL 05-23-2018 [facility] conc (80964) Urea 12.9 OTH - OTH mg/mg 05-23-2018 [facility] h nitrogen/Creatinine (32306) mass ratio Glucose mass conc 83 65 - 99 mg/dL 05-23-2018 [facility] (67468) Interpretation and Normal 05-23-2018 [facility] review of laboratory (75468) results xr chest pa/ap on 2 XR CHEST PA/AP EXAMINATION: Normal 05-22-2018 [facility] SINGLE XRAY VIEW OF THE CHEST Center (30715) 05/22/2018 1:17 pm COMPARISON: Chest radiograph 03/11/2017. [...] SUPINE XRAY VIEW(S) OF THE ABDOMEN Center (78937) VIEW 05/22/2018 1:17 pm COMPARISON: KUB 08/26/2016. [...] gastric body and 05-22-2018 [facility] (40488) side port in the gastric fundus. Non-specific bowel gas pattern without evidence of obstruction. Workstation ID: [id number] EXAMINATION: SINGLE SUPINE XRAY VIEW(S) OF THE 05-22-2018 [facility] (68823) ABDOMEN 05/22/2018 1:17 pm COMPARISON: [place] [...] EST EX AMINATION: 05-22-2018 [facility] (73103) SINGLE SUPINE XRAY VIEW(S) OF THE ABDOMEN [...] 2 cm above 05-22-2018 [facility] (90671) the jerardo. 2. No acute process. Workstation ID: [id number] EXAMINATION: SINGLE XRAY VIEW OF THE CHEST 05-22-2018 [facility] (60988) 05/22/2018 1:17 pm COMPARISON: Chest radiograph 03/11/2017. [...] EST EX AMINATION: 05-22-2018 [facility] (95857) SINGLE XRAY VIEW OF THE CHEST 05/22/2018 [...] order has been 05-22-2018 [facility] (12579) auto-finalized and does not contain a result. This order has been auto-finalized and does not contain a result. 05-22-2018 [facility] (58374) No panel information on 2018-05-21 Basophils #/vol (Bld) 0.05 OTH - OTH 10*3/uL 05-21-19 19 [facility] (42943) Basophils/100 WBC (Bld) 0.3 % 2018 [facility] (86886) Eosinophils #/vol (Bld) 0.08 OTH - OTH 10*3/uL 2018 [facility] (64609) Eosinophils/100 WBC (Bld) 0.5 % 04-26 [facility] (48290) Erythrocyte distribution 13.7 11.6 - 14.8 % [facility] (66997) width Entitic volume (RBC) Hematocrit Volume Fraction 33.6 41 - 53 % Low [facility] (25256) (Bld) Hemoglobin mass conc (Bld) 11.1 13.5 - 17.5 g/dL Low 0 05-21-2018 [facility] (58213) Immature granulocytes 0.13 OTH - OTH 10*3/uL 05-21-19 19 [facility] (51132) #/vol (Bld) Immature granulocytes/100 0.70 % 04-26 [facility] (89543) WBC (Bld) Comment: The IG parameter is the perc entage of metamyelocytes, myelocytes, and promyelocytes. Interpretation and Abnormal 05-21-2018 [facility] review of (45030) laboratory results Lymphocytes #/vol 2.13 OTH - OTH 10*3/ 05-21-2018 [facility] (Bld) uL (23328) Lymphocytes/100 12.1 % 05-21-2018 [facility] WBC (Bld) (52238) MCH Entitic mass 28.9 26 - 34 pg 05-21-2018 [facility] (RBC) (56269) MCHC mass conc 33.0 31 - 37 g/dL 05-21-2018 [facility] (RBC) (41652) MCV Entitic volume 87.5 80 - 100 fL 05-21-2018 [facility] (RBC) (05124) Monocytes #/vol 2.17 OTH - OTH 10*3/ High 05-21-2018 [facility] (Bld) uL (36786) Monocytes/100 WBC 12.4 % 05-21-2018 [facility] (Bld) (56389) Neutrophils #/vol 13.00 OTH - OTH 10*3/ High 05-21-2018 [facility] (Bld) uL (74913) Neutrophils/100 74.0 % 05-21-2018 [facility] WBC (Bld) (51332) Nucleated RBC 0.00 OT - [facility] 10*3/ 05-21-2018 [facility] eah #/vol (Bld) uL (35350) Nucleated RBC/100 0.0 % 05-21-2018 [facility] WBC Ratio (Bld) (432 15) Ovalocytes LM Ql Rare 05-21-2018 [facility] (Bld) (85051) Platelet mean 9.5 9 - 15.5 fL 05-21-2018 [facility] Entitic (4321 5) volume (Bld) Platelets #/vol 524 OT - OT 10*3/ High 05-21-2018 [facility] (Bld) uL (17135) Platelets LM Ql Increased Normal Abnormal 05-21-2018 [facility] (Bld) (62583) Polychromasia LM Rare 05-21-2018 [facility] Ql (Bld) (48411) RBC #/vol (Bld) 3.84 OT - [facility] 10*6/ Low 05-21-2018 [facility] uL (96618) WBC #/vol (Bld) 17.56 OT - [facility] 10*3/ High 05-21-2018 [facility] uL (87431) INR Coag RelTime 1.1 [facility] {INR} 05-21-2018 Ct [facility] (PPP) (73479) Interpretation and Normal 05-21-2018 [facility] review of (72835) laboratory results Prothrombin time 14.1 [facility] 05-21-2018 [facility] (PT) Coag time (4321 5) (PPP) During the 05-21-2018 [facility] induction phase of ( 50269) oral anticoagulation, the INR may not reflect the anticoagulation status of the patient. Therapeutic ranges for INR's are: Most clinical situations: INR 2.0-3.0 Mechanical Prosthetic Valve: INR 2.5-3.5 Critical: INR >5.0 Anion gap molar 18 10 - 20 mmol/ 05-21-2018 [facility] (91580) Calcium mass conc 9.3 8.4 - 10.2 mg/dL 05-21-2018 [facility] (47768) Chloride molar 98 98 - 108 mmol/ 05-21-2018 [facility] conc L (14680) Creatinine mass 0.74 0.5 - 1.3 mg/dL 05-21-2018 [facility] (02500) GFR/1.73 sq M The eGFR should be 019 [facility] predicted among used for monitoring (81971) non-blacks MDRD renal function only vol rate/area and not for (S/P/Bld) medication dosing. GFR/1.73 sq 116 >=60 05-21-2018 [facility] lth M.predicted mL/min/1.7 (25257) CKD-EPI vol 3 m2 rate/area (S/P/Bld) Glucose mass conc 98 65 - 99 mg/dL 05-21-2018 [facility] (58427) HCO3 molar conc 23 21 - 32 mmol/ 05-21-2018 [facility] (98334) Interpretation and Normal 05-21-2018 [facility] review of (00173) laboratory results Potassium molar 4.0 3.5 - 5.1 mmol/ 05-21-2018 [facility] (90963) Sodium molar conc 135 135 - 145 mmol/ 05-21-2018 [facility] L (08213) Urea nitrogen mass 9 8 - 25 mg/dL 05-21-2018 [facility] conc (71501) Urea 12.2 OTH - OTH mg/mg 05-21-2018 [facility] h nitrogen/Creatinin ( 78733) e mass ratio xr fluoroscopy time on 2018-05-12 XR FLUOROSCOPY TIME This is an auto finalized re sult. Please refer to patient chart for Normal 05-12-2018 [facility] further information. Center (40750) further information. further information. Comment: Order Comment: Reason for ex am?:intra op Injury/Trauma or Illness?:Il lness/Other How long have you had these symptoms (acute/chronic)?:Unknown Type of Exam?:Unknown Additional signs and symptom s?:intra op Fluoro time in minutes:1.17 Fluoro dose in mGy?:10.66 xr femur left 2+ views (standard) on 2018-05-12 XR FEMUR LEFT 2+ EXAMINATION: Normal 05-12-2018 [facility] VIEWS (STANDARD) TWO XRAY VIEWS OF THE LEFT FEMUR Center ([id number]) 05/12/2018 10:47 am COMPARISON: 03/28/2018 HISTORY: ORDERING [...] [facility] V[facility] OF THE LEFT FEMUR (03734) 05/12/2018 10:47 am COMPARISON: 03/28/2018 HISTORY: ORDERING [...] TWO XRAY VIEWS OF THE LEFT FEMUR (33955) 05/12/2018 10:47 am COMPARISON: 03/28/2018 HISTORY: ORDERING [...] [facility] abnormality of the left (95868) femur. 2. Postsurgical skin josé in place. Workstation ID: [id number] Erythrocyte 14.6 11.6 - % 05-12-2018 [facility] lt distribution width 14.8 ( 13136) Entitic volume (RBC) Hematocrit Volume 39.5 41 - 53 % Low 05-12-2018 [facility] Fraction (Bld) (4321 5) Hemoglobin mass 13.0 13.5 - g/dL Low 05-12-2018 [facility] conc (Bld) 17.5 (82694) Interpretation and Abnormal 05-12-2018 [facility] review of (44950) laboratory results MCH Entitic mass 29.7 26 - 34 pg 05-12-2018 [facility] (RBC) (24076) MCHC mass conc 32.9 31 - 37 g/dL 05-12-2018 [facility] (RBC) (10587) MCV Entitic volume 90.2 80 - fL 05-12-2018 [facility] (RBC) 100 (22136) Nucleated RBC 0.00 OTH - 10*3/u 05-12-2018 [facility] ealth #/vol (Bld) OTH L (32452) Nucleated RBC/100 0.0 % 05-12-2018 [facility] WBC Ratio (Bld) (432 15) Platelet mean 10.6 9 - fL 05-12-2018 [facility] ealth volume Entitic 15.5 (4321 5) volume (Bld) Platelets #/vol 243 OTH - 10*3/u 05-12-2018 [facility] (Bld) OTH L (29824) RBC #/vol (Bld) 4.38 OTH - 10*6/u Low 05-12-2018 [facility] OTH L (22180) WBC #/vol (Bld) 16.17 OTH - 10*3/u High 05-12-2018 [facility] OTH L (41346) Anion gap molar 18 10 - 20 mmol/L 05-12-2018 [facility] conc (85055) Chloride molar 103 98 - mmol/L 05-12-2018 [facility] conc 108 (53524) Creatinine mass 0.85 0.5 - mg/dL 05-12-2018 [facility] conc 1.3 (35275) GFR/1.73 sq M The eGFR should be used [facility] predicted among for monitoring renal (55587) non-blacks MDRD function only and not vol rate/area for medication dosing. (S/P/Bld) GFR/1.73 sq 110 >=60 05-12-2018 [facility] lth M.predicted mL/min/ (31900) CKD-EPI vol 1.73 m2 rate/area (S/P/Bld) Glucose mass conc 95 65 - 99 mg/dL 05-12-2018 [facility] (63534) HCO3 molar conc 25 21 - 32 mmol/L 05-12-2018 [facility] (42287) Interpretation and Normal 05-12-2018 [facility] review of (44892) laboratory results Potassium molar 5.1 3.5 - mmol/L 05-12-2018 [facility] conc 5.1 (72638) Sodium molar conc 141 135 - mmol/L 05-12-2018 [facility] 145 (37484) Urea nitrogen mass 15 8 - 25 mg/dL 05-12-2018 [facility] conc (60324) Urea 17.6 OTH - mg/mg 05-12-2018 [facility] h nitrogen/Creatinin OTH ( 91387) e mass ratio This is an auto 05-12-2018 [facility] finalized result. Please (54616) refer to patient chart for further information. No panel information on 2018-04-24 Anion gap 3 molar 15 10 - 20 mmol/L Invalid 04-24-2018 [facility] conc Interpretation Code Calcium mass conc 9.4 8.4 - mg/dL Invalid 04-24-2018 [facility] 10.2 Interpretation Code Chloride molar [...] 86 65 - 99 mg/dL Invalid 04-24-2018 [facility] Interpretation Code HCO3 molar conc [...] conc 138 135 - mmol/L Invalid 04-24-2018 [facility] 145 Interpretation Code Urea nitrogen [...] CT OF THE FACE WITHOUT CONTRAST 02/23/2018 [place] (53287) TECHNIQUE: CT of the face was performed [...] as on the previous exam. Workstation ID: [id number] Dictated by: MONTEZ NAJERA on TueFeb 23, [...] 02-23-2018 [facility]NAP[facility] WITHOUT CONTRAST 02/23/2018 Code [facility] TECHNIQUE: CT of the face was [...] 02-23-2018 [facility] SYNAPSE mandibular angle fracture. Code [facility] Persistent fracture line with evidence of cortical bone formation along the fracture margins raises concern for nonunion. Chronic paranasal sinusitis as on the previous exam. Workstation ID: [id number] Interface, Rad In Ilana Invalid Interpret ation 02-23-2018 ILANA FELIPE Speechq - 02/23/2018 2:01 PM Code [facility] EDT EXAMINATION: CT OF THE FACE [...] as on the previous exam. Workstation ID: [id number] xr knee left 2 views (standard) on 2017-08-04 I reviewed the AP and Invalid Interpreta tion 08-04-2017 [employer] lateral views were Code C [facility] obtained in the office today. There is stable appearance to the left knee. The patella fracture appears to be fully healed with mild joint surface irregularities that are stable. ct maxillofacial without contrast 3d on 2017-08-02 RDW-CA 1. Postsurgical changes Invalid Interpre tation 08-02-2017 [employer] status post left mandible Code [facility] ORIF with intact malleable plate and [...] Rad In Fuji Invalid Interpret ation 08-02-2017 [employer] Speechq - 08/02/2017 7:54 Code [facility] PM EDT EXAMINATION: CT OF THE [...] [id number] EXAMINATION: [facility]2017 [facility] [employer] FACE WITHOUT CONTRAST Code [facility] 08/02/2017 TECHNIQUE: CT of the face [...] Invalid 05-28-2017 [facility] culture Interpretation [facility] Culture Few Growth (4-10 Abnormal 05-28-2017 [facility] colonies per plate) [facility] Coagulase Negative [facility] Staphylococcus INR in blood by Many WBC Invalid 05-28-2017 [facility] coagulation Interpretation Code [facility] L AB INR in blood by Many RBC Invalid 05-28-2017 [facility] coagulation Interpretation Code [facility] L AB INR in blood by No Organisms Seen Invalid 2017 [facility] coagulation Interpretation Code [facility] L AB Interpretation and Abnormal Invalid 05-28-2017 [facility] review of Interpretation Code [facility] laboratory results [facility] pt/inr on [...] by an Invalid Interpretation [facility] (65567) unspecified provider. Code ct maxillofacial with contrast 3d on 2017-05-27 Interface, Rad In Matter and Formq Invalid I nterpretation 05-27-2017 [facility] SYNAPSE - 05/27/2017 10:22 AM EST Code [facility] EXAMINATION: CT OF THE FACE WITH [...] cavity, and anterior aspect of the neck. [employer] Workstation ID: [id number] EXAMINATION: CT OF THE FACE Invalid Inte rpretation 05-27-2017 [employer] WITH CONTRAST 05/27/2017 [facility] TECHNIQUE: CT of the face was performed [...] Type of Encounter: Subsequent/Follow-up Mechanism of Injury: [facility] ORDERING SYSTEM PROVIDED DIAGNOSIS CODES: Z01.818 Preoperative [...] cavity, and anterior aspect of the neck. [employer] Workstation ID: [id number] creatinine, serum o n [...] [facility] Report Case: Code [id number] Authorizing Provider: Mony Enriquez MD Collected: 05/25/2017 12:41 PM Ordering Location: [facility] Received: 05/25/2017 02:53 PM Periop Pathologist: Ubaldo [...] anaerobode Growth at 5 Days Interpretation Code [facility] culture HOSPITAL L AB bone aerobic culture on 2017-05-25 Culture Polymicrobic mixture Invalid 8 [facility] of organisms Interpretation Code [facility] consistent with HOSP ITAL LAB Normal Respiratory Marva: No Staphylococcus aureus. No Beta Streptococcus Group A. No Beta Streptococcus Group B No Pseudomonas aeruginosa. Contact Microbiology within 48 hours if further workup is clinically indicated. Microscopic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 [facility] ([id number]) (hemogram) panel - Blood by Automated count Glucose [Mass/volume] in 05-27-2018 Tru Mendes [facility] ([id number]) Blood [place] Vancomycin [Mass/volume] in 05-26-2018 Carroll Noyola [facility] ([id number]) Serum or Plasma --trough Basic metabolic 2000 panel 05-26-2018 Yolanda Lopez [facility] ([id number]) - Serum or Plasma Basic metabolic 2000 panel 05-25-2018 Yolanda Lopez [facility] ([id number]) - Serum or Plasma Vancomycin [Mass/volume] in 05-25-2018 Debra Swanson Merrill [facility] (28104) Serum or Plasma Complete blood count 05-24-2018 [facility] (93860) (hemogram) panel - Blood by Automated count Basic metabolic 2000 panel 05-24-2018 Yolanda Beasley [facility] ([id number]) - Serum or Plasma Vancomycin [Mass/volume] in 05-24-2018 [facility] (61166) Serum or Plasma Vancomycin [Mass/volume] in 05-23-2018 [facility] (54633) Serum or Plasma Procedure on tissue 05-23-2018 [facility] (42763) specimen DEBRIDEMENT WITH WOUND 05-23-2018 - [facility] (58454) CLOSURE HEAD AND NECK 05-23-2018 Glucose [Mass/volume] in 05-23-2018 [facility] (80119) Blood Hume Basic metabolic 2000 panel 05-23-2018 Ashok Mcclain [facility] (78307) - Serum or Plasma Complete blood count 05-23-2018 Ashok [facility] (52801) (hemogram) panel - Blood by Automated count Analysis of arterial blood 05-23-2018 Ashok [facility] (01322) gases and pH Glucose [Mass/volume] in 05-23-2018 [facility] (68306) Blood Hume Basic metabolic 2000 panel 05-23-2018 Yolanda Beasley [facility] (10571) - Serum or Plasma Blood type and Indirect 05-23-2018 Peyton Amador [facility] (26762) antibody screen panel - Blood Radiography of 05-22-2018 Karen Devi [facility] ([id number]) [id number] Radiologic exam chest 05-22-2018 Karen Devi [facility] (69729) single view Procedure on tissue 05-22-2018 [facility] (87702) specimen Aerobic microbial culture 05-22-2018 [facility] ([id number]) Culture bacterial any 05-22-2018 [facility] (75365) source anaerobic iso&id INCISION AND DRAINAGE 05-22-2018 - Leon De Leon [facility] h (68745) HEAD/NECK 05-22-2018 Computerized tomography, 05-22-2018 Tru Mendes [facility] (12423) limited studies Hume Basic metabolic 2000 panel 05-21-2018 [facility] ealt (28165) - Serum or Plasma Jorje Complete blood count with 05-21-2018 [facility] alth (39644) white cell differential, Jorje automated Complete blood count with 05-21-2018 [facility] (84284) white cell differential, Jorje manual INR in Platelet poor plasma 05-21-2018 [facility] (66802) by Coagulation assay Jorje Red blood cell morphology 05-21-2018 [facility] (19558) Jorje Complete blood count 05-12-2018 Mony Enriquez [facility] (69512) (hemogram) panel - Blood by Automated count Radiologic examination 05-12-[address] [facility] (38579) femur minimum 2 views Basic metabolic 1998 panel 05-12-2018 Mony Enriquez [facility] (14298) - Serum or Plasma Fluoroscopy up to 1 hour 05-12-2018 Kavitha Antonio [facility] (30278) physician/qhp time Basic metabolic 2000 panel 04-24-2018 - Mony Leiva [facility] (08042) - Serum or Plasma 04-24-2018 Hemoglobin and Hematocrit 04-24-2018 - Mony Leiva [facility] (11094) panel - Blood 04-24-2018 CT of maxillofacial area 02-23-2018 - Mony [facility] (10749) without contrast 02-23-2018 LEFT JAW ABSCESS INCISION 05-28-2017 - Mony Conde [facility] (13869) AND DRAINAGE, REMOVAL OF 05-28-2017 JAW SCREWS AND WIRES ILIAC CREST BONE GRAFT 05-25-2017 - Mony Conde [facility] alth ([id number]) 05-25-2017 INTERMAXILLARY FIXATION 05-25-2017 - Mony Conde [facility] ealt (61932) APPLICATION 05-25-2017 MANDIBLE OPEN REDUCTION 05-25-2017 - [facility] ([id number][facility] INTERNAL FIXATION 05-25-2017 FASCIAL FLAP ROTATIONAL 03-11-2017 - [facility] ([id number][facility] 03-11-2017 LEFT KNEE WOUND INCISION 03-11-2017 [facility] (30254[facility] AND DRAINAGE POSSIBLE 03-11-2017 [facility] EXTENSOR MECHANISM REPAIR POSSIBLE PATELLA HARDWARE 03-11-2017 - Anuj Carranza alth (34644) REMOVAL 03-11-2017 [facility] REMOVAL EXTERNAL FIXATOR 03-11-2017 - [facility] (96896) 03-11-2017 LEFT PECTORAL FLAP 12-24-2016 - [facility] (21787) ADVACEMENT FOR CLOSURE 12-24-2016 LEFT JAW FLAP DEBRIDEMENT 12-22-2016 - [facility] (89098) W/ POSSIBLE CLOSURE 12-22-2016 PECTORALIS MAJOR MUSCLE 12-03-2016 - [facility] (49501) FLAP TO JAW SPLIT THICKNESS 12-03-2016 SKIN GRAFT LEFT MANDIBLE DEBRIDEMENT MANDIBLE IMF SCREW REMOVAL 11-22-2016 - [facility] (42015) 11-22-2016 Plan of Treatment Plan Description Date Location TETANUS EVERY 10 YR TETANUS EVERY 10 YR 08-27-2026 - [facility] ([id number]) 08-27-2026 TETANUS EVERY 10 YR TETANUS EVERY 10 YR 08-27-2026 - [facility] ([id number]) 08-27-2026 Office Visit 01/02/2019 Office Visit 01-02-2019 - [facility] Physician Zaynab De Leon, 01-02-2019 Group, N [employer]science MD Leon [address] [address] [phone] Juwan Metcalf MD [address] [address] [phone] SEQUENTIAL INFLUENZA SEQUENTIAL INFLUENZA 12-24-2018 - [facility] (16448) VACCINE (#1) VACCINE (#1) 12-24-2018 Office Visit 09/04/2018 Office Visit 09-04-2018 - [facility] Plastic & Plastic Surgery 09-04-2018 Reconstructive S Leon Winston MD [address] [address] [phone] Follow-Up 07/05/2018 Follow-Up 07-05-2018 - [facility] Plastic & Plastic Surgery 07-05-2018 Reconstructive S Leon Winston MD [address] [address] [phone] Follow-Up 06/07/2018 Follow-Up 06-07-2018 - [facility] Plastic & Plastic Surgery 06-07-2018 Reconstructive S Leon Winston MD [address] [address] [phone] Office Visit 06/05/2018 Office Visit 06-05-2018 - [...] Reconstruc tive Surgeons Mony Enriquez MD [address] [address] [phone] SEQUENTIAL INFLUENZA SEQUENTIAL INFLUENZA 12-24-2017 - [facility] (79731) VACCINE (#1) VACCINE (#1) 12-24-2017 SEQUENTIAL INFLUENZA SEQUENTIAL INFLUENZA 12-24-2017 - [facility] (36757) VACCINE (#1) VACCINE (#1) 12-24-2017 Office Visit 11/15/2017 Office 11-15-2017 - [facility] Rocio stic & Visit Plastic Surgery 11-15-2017 Reconstruc tive Surgeons Mony Enriquez MD [address] [address] [phone] Office Visit 11/01/2017 Office 11-01-2017 - [facility] Rocio stic & Visit Plastic Surgery 11-01-2017 Reconstruc tive Surgeons Mony Enriquez MD [address] [address] Office Visit 08/04/2017 Office 08-04-2017 - [facility] 08-04-2017 Trauma & Recons tructive Surgery Brittney, Chary Adames MD [address] [place] [id number] Follow-Up 07/12/2017 Follow-Up 07-12-2017 [facility] Plastic & Plastic Surgery Zoe Reconstru ctive Surgeons Mony Conde MD [address] [address] [phone] Follow-Up 06/28/2017 Follow-Up 06-28-2017 [facility] Plastic & Plastic Surgery Reconstructive S urgeTahira Alexander PA-C [address] [address] [phone] Follow-Up 06/21/2017 Follow-Up 06-21-2017 - [facility] Plastic & Plastic Surgery 06-21-2017 Reconstructive S urgTahira Mo PA-C [address] [address] [phone] Follow-Up 06/07/2017 Follow-Up 06-07-2017 [facility] Plastic & Plastic Surgery Zoe Reconstrbaljit ctive Surgeons Mony Conde MD [address] [place] [id number] [phone] Surgery no information 05-25-2017 [facility] Periop Follow-Up 05/12/2017 Follow-Up 05-12-2017 - [facility] Plastic & Plastic Surgery Zoe, 05-12-2017 Reconstru ctive Surgeons Mony Conde MD [address] [address] [phone] Office Visit 05/05/2017 Office 05-05-2017 - [facility] 05-05-2017 Trauma & Recons tructive Surgery Brittney, Surgeons Anuj Adames MD [address] [id number] [phone] Follow-Up 04/21/2017 Follow-Up 04-21-2017 [facility] Plastic & Plastic Surgery Zoe Reconstru ctive Surgeons Mony Conde MD [address] [place] [address]187015 [phone] Follow-Up 04/07/2017 Follow-Up 04-07-2017 - [facility] Plastic & Plastic Surgery 04-07-2017 Reconstructive S Tahira Virk PA-C [address] [place] [address]187015 [phone] Office Visit no information 03-31-2017 - [facility] Ortho pedic 03-31-2017 Trauma & Reconst ructive Surgeons Follow-Up 03/22/2017 Follow-Up 03-22-2017 [facility] Plastic & Plastic Surgery Zoe Reconstru ctive Surgeons Mony Conde MD [address] [place] [address]187015 [phone] Surgery no information 03-11-2017 [facility] nter Periop Follow-Up 02/17/2017 Follow-Up 02-17-2017 - [facility] Plastic & Plastic Surgery Zoe, 02-17-2017 Reconstru ctive Surgeons Mony Conde MD [address] [place] 0187015 [phone] Office Visit 02/07/2017 Office 02-07-2017 - [facility] Ort hopedic Visit Orthopedic 02-07-2017 Trauma & Recons tructive Surgery Brittney, Surgeons Anuj Adames MD [address] [id number] [phone] Follow-Up 02/03/2017 Follow-Up 02-03-2017 [facility] Surgery Zoe Reconstru ctive Surgeons Mony Conde MD [address] [id number] [phone] Follow-Up 01/13/2017 Follow-Up 01-13-2017 - [facility]astic & Plastic Surgery Zoe, 01-13-2017 Reconstru ctive Surgeons Mony Conde MD [address] [address] [phone] Follow-Up 01/04/2017 Follow-Up 01-04-2017 [facility] Plastic Surgery Zoe Reconstrbaljit ctive Surgeons Mony Conde MD [address] [address] [phone] Office Visit no information 12-30-2016 - [facility] Ortho pedic 12-30-2016 Trauma & Reconst ructive Surgeons SEQUENTIAL INFLUENZA SEQUENTIAL INFLUENZA 12-24-2016 - [facility] ([id number]) VACCINE (#1) VACCINE (#1) 12-24-2016 SEQUENTIAL INFLUENZA SEQUENTIAL INFLUENZA 12-24-2016 - [facility] ([id number]) VACCINE (#1) VACCINE (#1) 12-24-2016 Surgery no information 12-22-2016 [facility] jarocho Periop Surgery 12/22/2016 Surgery 12-22-2016 [facility] Mony Enriquez Periop MD [address] [address] [phone] LEFT JAW FLAP DEBRIDEMENT W/ POSSIBLE CLOSURE Comment: LEFT JAW FLAP DEBRIDEMENT W/ POSSIBLE CLOSURE Follow-Up 12/21/2016 Follow-Up 12-21-2016 - [facility]astic [facility] Plastic Surgery Zoe, 12-21-2016 Reconstru ctive Mony Conde MD [address] [address] [phone] Follow-Up 12/16/2016 Follow-Up 12-16-2016 [facility]astic [facility] Plastic Surgery Samuel Enriquez MD [address] [address] [phone] Wellness Visit Wellness Visit 1981 - [facility] (4321 5) 1981 Bone Anaerobic Culture Bone Anaerobic Culture [facility] ([id number]) Routine 12/24/2016 10:24 AM EDT Bone Aerobic Culture [facility] ([id number][facility] Routine 12/24/2016 10:[address] Maxillofacial With no information [facility] ([id number]) Contrast 3D CT Maxillofacial CT Maxillofacial 04-21-2018 [...] 07/19/2018 Bone Fungus Culture Bone Fungus Culture [facility] ([id number]) Routine 12/24/2016 10:24 AM EDT Bone AFB Culture Bone AFB Culture [facility] (43 215) Routine 12/24/2016 10:24 AM EDT Tissue Exam no information [facility] (4321 5) Vancomycin Level, Vancomycin Level, [facility] ( 480[address]) Random Random Routine Chronic osteomyelitis of facial bones (HCC) 01/04/2017 3:13 PM EDT Vancomycin Level, Vancomycin Level, 01-04-2018 [facility] ( [id number]) Random Random Routine Chronic osteomyelitis of facial bones (HCC) 1 Occurrences starting 01/04/2017 until 01/04/2018 Wound AFB Culture no information [facility] (43 215) Wound Anaerobic no information [facility] (4321 5) Culture Wound culture Wound culture Routine 02-03-2018 [facility] ([id number]) Chronic osteomyelitis of facial bones (HCC) 1 Occurrences starting 02/03/2017 until 02/03/2018 Wound Fungus Culture no information [facility] (48682) XR Knee Left 2 Views XR Knee Left 2 Views 03-31-2017 [facility] ([id number]) (Standard) (Standard) Routine Type I or II open comminuted fracture of left patella with routine healing Once for 1 Occurrences starting 03/31/2017 until 03/31/2017 XR Knee Left 2 Views XR Knee Left 2 Views [facility] ([id number]) (Standard) (Standard) Routine Type I or II open comminuted fracture of left patella with routine healing 03/31/2017 1:09 PM EST Immunizations Vaccine Notes Status Date Location TDAP tetanus toxoid, reduced (completed) 08-27-2016 - [facility] ([id number]) diphtheria toxoid, and 08-27-2016 acellular pertussis vaccine, adsorbed Payers Payer Name Policy Number [place] [facility] xxxxxxxxxxx [facility] ( [id number]) [employer] [id number] [facility] ([id number]) [employer], MEDICAID, [id number] [facility] ([id number]) [employer], MEDICAID, [employer], MEDICAID, [employer] [employer] xxxxxxxxxxxx [facility] (4321 5) [id number] [facility] ([id number]) [id number] [facility] ([id number]) [id number] [facility] ([id number]) [id number] [facility] ([id number]) [id number] [facility] ([id number]) [id number] [facility] ([id number]) [id number] [facility] ([id number]) [id number] [facility] ([id number]) [id number] [facility] ([id number]) [id number] [facility] ([id number]) [id number] [facility] ([id number]) [id number] [facility] ([id number]) [id number] [facility] ([id number]) [id number] [facility] ([id number]) [id number] [facility] ([id number]) [id number] [facility] ([id number]) The following information is from the original human readable contentNo Payer Records Found Social History Type Social History Date Location Description Tobacco smoking status Former smoker 12-21-2016 - [facility] ([id number]) NCIS 03-14-2017 History of tobacco use Current smoker 08-25-2016 [facility] ([id number]) Sex Assigned At Not on file [facility] (65402) Tobacco Comment 1 pack per week for 20 10-01-2016 - [facility] ([id number]) years 10-01-2016 Tobacco smoking status Current every day smoker 06-05-2018 - [facility] (51291) NHIS 09-06-2018 Alcohol intake Current non-drinker of 09-06-2018 [facility] h (69361) alcohol (finding) The following information is from [...] 12-24-2016 Radiopaque Simplex P Single Dose - [id number] Screw 2.4 X 22mm Moraima 017 Ang Lock Strdrv - [id number] Tube Sz8 Trach 08-26-2016 Cuffed - [id number] Tube 22fr Feeding 08-26-2016 Gastrostomy Junior - [id number] Screw 2.4 X 32mm Va 08-28-19 17 Lock Self-Tap Strdrv Rec - [id number] Screw 2.4 X 44mm Va 08-28-19 17 Lock Self-Tap Strdrv Rec - [id number] Screw 2.4 X 36mm 08-27-2016 Cortex Self-Tap T8 Strdrv Rec - [id number] Screw 2.4 X 38mm 08-27-2016 Cortex Self-Tap T8 Strdrv Rec - [id number] Wire K .045 X 5.5in 08-28-19 17 W/Wire Guide - [id number] Plate 2.4mm 2.7mm 08-27-2016 Va-Lock Mesh 5 X 12hls - [id number] Wire 15 X 150mm 08-27-2016 Compression Thrd - [id number] 1.6mm Compression 08-27-2016 Wires 20mm Thread Length, 1500mm Total Length Screw 2.4 X 18mm Moraima 017 Ang Lock Strdrv - [id number] Screw 2.4 X 20mm Moraima 017 Ang Lock Strdrv - [id number] Screw 2.4 X 22mm Moraima 017 Ang Lock Strdrv - [id number] Hemostat 8 X 12.5cm 11-04-19 17 X 10mm Surgifoam Gelatin Sponge - [id number] Screw 2.5 X 4mm Ti 7 Schanz 14mm Thrd Body - [id number] Hemostat 2 X 14in 12-03-2016 Surgicel - [id number] Mandible Bone Infuse Bone 11-03-2016 Graft Sm - [id number] Bone Infuse Bone 05-25-2017 Graft Xsm - [id number] Cement Bone 12-24-2016 Radiopaque Simplex P Single Dose - [id number] Tube Sz8 Trach 08-26-2016 Cuffed - [id number] Tube 22fr Feeding 08-26-2016 Gastrostomy Junior - [id number] Screw 2.4 X 32mm Va 08-28-19 17 Lock Self-Tap Strdrv Rec - [id number] Screw 2.4 X 44mm Va 08-28-19 17 Lock Self-Tap Strdrv Rec - [id number] Screw 2.4 X 36mm 08-27-2016 Cortex Self-Tap T8 Strdrv Rec - [id number] Screw 2.4 X 38mm 08-27-2016 Cortex Self-Tap T8 Strdrv Rec - [id number] Wire K .045 X 5.5in 08-28-19 17 W/Wire Guide - [id number] Plate 2.4mm 2.7mm 08-27-2016 Va-Lock Mesh 5 X 12hls - [id number] Wire 15 X 150mm 08-27-2016 Compression Thrd - [id number] 1.6mm Compression 08-27-2016 Wires 20mm Thread Length, 1500mm Total Length Screw 2.4 X 18mm Moraima 017 Ang Lock Strdrv - [id number] Screw 2.4 X 20mm Moraima 017 Ang Lock Strdrv - [id number] Screw 2.4 X 22mm Moraima 017 Ang Lock Strdrv - [id number] Hemostat 8 X 12.5cm 11-04-19 17 X 10mm Surgifoam Gelatin Sponge - [id number] Screw 2.5 X 4mm Ti 7 Schanz 14mm Thrd Body - [id number] Hemostat 2 X 14in 12-03-2016 Surgicel - [id number] Hemostat 8 X 6.25cm 05-25-19 18 X 10mm Surgifoam Gelatin Sponge - [id number] Screw 2 X 10mm Cross 018 Pin Locking - [id number] Screw 2 X 14mm Cross 018 Pin Locking - [id number] Plate 11hl Str Recon 018 - [id number] Bone Infuse Bone 11-03-2016 Graft Sm - [id number] Bone Infuse Bone 05-25-2017 Graft Xsm - [id number] Cement Bone 12-24-2016 Radiopaque Simplex P Single Dose - [id number] Tube Sz8 Trach 08-26-2016 Cuffed - [id number] Tube 22fr Feeding 08-26-2016 Gastrostomy Junior - [id number] Screw 2.4 X 32mm Va 08-28-19 17 Lock Self-Tap Strdrv Rec - [id number] Screw 2.4 X 44mm Va 08-28-19 17 Lock Self-Tap Strdrv Rec - [id number] Screw 2.4 X 36mm 08-27-2016 Cortex Self-Tap T8 Strdrv Rec - [id number] Screw 2.4 X 38mm 08-27-2016 Cortex Self-Tap T8 Strdrv Rec - [id number] Wire K .045 X 5.5in 08-28-19 17 W/Wire Guide - [id number] Plate 2.4mm 2.7mm 08-27-2016 Va-Lock Mesh 5 X 12hls - [id number] Wire 15 X 150mm 08-27-2016 Compression Thrd - [id number] 1.6mm Compression 08-27-2016 Wires 20mm Thread Length, 1500mm Total Length Screw 2.4 X 18mm Moraima 017 Ang Lock Strdrv - [id number] Screw 2.4 X 20mm Moraima 017 Ang Lock Strdrv - [id number] Screw 2.4 X 22mm Moraima 017 Ang Lock Strdrv - [id number] Hemostat 8 X 12.5cm 11-04-19 17 X 10mm Surgifoam Gelatin Sponge - [id number] Screw 2.5 X 4mm Ti 7 Schanz 14mm Thrd Body - [id number] Hemostat 2 X 14in 12-03-2016 Surgicel - [id number] Hemostat 8 X 6.25cm 05-25-19 18 X 10mm Surgifoam Gelatin Sponge - Gwj7679711 Screw 2 X 10mm Cross 018 Pin Locking - [id number] Screw 2 X 14mm Cross 018 Pin Locking - [id number] Plate 11hl Str Recon 018 - [id number] Bone Infuse Bone 11-03-2016 Graft Sm - [id number] Bone Infuse Bone 05-25-2017 Graft Xsm - [id number] Cement Bone 12-24-2016 Radiopaque Simplex P Single Dose - [id number] Tube Sz8 Trach 08-26-2016 Cuffed - [id number] Tube 22fr Feeding 08-26-2016 Gastrostomy Junior - [id number] Screw 2.4 X 32mm Va 08-28-19 17 Lock Self-Tap Strdrv Rec - [id number] Screw 2.4 X 44mm Va 08-28-19 17 Lock Self-Tap Strdrv Rec - [id number] Screw 2.4 X 36mm 08-27-2016 Cortex Self-Tap T8 Strdrv Rec - [id number] Screw 2.4 X 38mm 08-27-2016 Cortex Self-Tap T8 Strdrv Rec - [id number] Wire K .045 X 5.5in 08-28-19 17 W/Wire Guide - [id number] Plate 2.4mm 2.7mm 08-27-2016 Va-Lock Mesh 5 X 12hls - [id number] Wire 15 X 150mm 08-27-2016 Compression Thrd - [id number] 1.6mm Compression 08-27-2016 Wires 20mm Thread Length, 1500mm Total Length Screw 2.4 X 18mm Moraima 017 Ang Lock Strdrv - [id number] Screw 2.4 X 20mm Moraima 017 Ang Lock Strdrv - [id number] Screw 2.4 X 22mm Mor[place]a 017 Ang Lock Strdrv - [id number] Hemostat 8 X 12.5cm 11-04-19 17 X 10mm Surgifoam Gelatin Sponge - [id number] Screw 2.5 X 4mm Ti 7 Schanz 14mm Thrd Body - [id number] Hemostat 2 X 14in 12-03-2016 Surgicel - [id number] Hemostat 8 X 6.25cm 05-25-19 18 X 10mm Surgifoam Gelatin Sponge - [id number] Screw 2 X 10mm Cross 018 Pin Locking - [id number] Screw 2 X 14mm Cross 018 Pin Locking - [id number] Plate 11hl Str Recon 018 - [id number] Bone Infuse Bone 11-03-2016 Graft Sm - [id number] Bone Infuse Bone 05-25-2017 Graft Xsm - [id number] Cement Bone 12-24-2016 Radiopaque Simplex P Single Dose - [id number] Tube Sz8 Trach 08-26-2016 Cuffed - Bti198050 Tube 22fr Feeding 08-26-2016 Gastrostomy Junior - Kmu771205 Screw 2.4 X 32mm Va 08-28-19 17 Lock Self-Tap Strdrv Rec - [id number] Screw 2.4 X 44mm Va 08-28-19 17 Lock Self-Tap Strdrv Rec - [id number] Screw 2.4 X 36mm 08-27-2016 Cortex Self-Tap T8 Strdrv Rec - [id number] Screw 2.4 X 38mm 08-27-2016 Cortex Self-Tap T8 Strdrv Rec - [id number] Wire K .045 X 5.5in 08-28-19 17 W/Wire Guide - [id number] Plate 2.4mm 2.7mm 08-27-2016 Va-Lock Mesh 5 X 12hls - [id number] Wire 15 X 150mm 08-27-2016 Compression Thrd - [id number] 1.6mm Compression 08-27-2016 Wires 20mm Thread Length, 1500mm Total Length Screw 2.4 X 18mm Moraima 017 Ang Lock Strdrv - Zud142212 Screw 2.4 X 20mm Moraima 017 Ang Lock Strdrv - [id number] Screw 2.4 X 22mm Mor[place]a 017 Ang Lock Strdrv - [id number] Hemostat 8 X 12.5cm 11-04-19 17 X 10mm Surgifoam Gelatin Sponge - Ies9603076 Screw 2.5 X 4mm Ti 7 Schanz 14mm Thrd Body - [id number] Hemostat 2 X 14in 12-03-2016 Surgicel - [id number] Hemostat 8 X 6.25cm 05-25-19 18 X 10mm Surgifoam Gelatin Sponge - [id number] Screw 2 X 10mm Cross 018 Pin Locking - [id number] Screw 2 X 14mm Cross 018 Pin Locking - [id number] Plate 11hl Str Recon 018 - [id number] Bone Infuse Bone 11-03-2016 Graft Sm - [id number] Bone Infuse Bone 05-25-2017 Graft Xsm - [id number] Cement Bone 12-24-2016 Radiopaque Simplex P Single Dose - [id number] Tube Sz8 Trach 08-26-2016 Cuffed - [id number] Tube 22fr Feeding 08-26-2016 Gastrostomy Junior - Xfn398868 Screw 2.4 X 32mm Va 08-28-19 17 Lock Self-Tap Strdrv Rec - [id number] Screw 2.4 X 44mm Va 08-28-19 17 Lock Self-Tap Strdrv Rec - [id number] Screw 2.4 X 36mm 08-27-2016 Cortex Self-Tap T8 Strdrv Rec - [id number] Screw 2.4 X 38mm 08-27-2016 Cortex Self-Tap T8 Strdrv Rec - [id number] Wire K .045 X 5.5in 08-28-19 17 W/Wire Guide - [id number] Plate 2.4mm 2.7mm 08-27-2016 Va-Lock Mesh 5 X 12hls - [id number] Wire 15 X 150mm 08-27-2016 Compression Thrd - [id number] 1.6mm Compression 08-27-2016 Wires 20mm Thread Length, 1500mm Total Length Screw 2.4 X 18mm Moraima 017 Ang Lock Strdrv - Dwz205015 Screw 2.4 X 20mm Moraima 017 Ang Lock Strdrv - [id number] Screw 2.4 X 22mm Moraima 017 Ang Lock Strdrv - [id number] Hemostat 8 X 12.5cm 11-04-19 17 X 10mm Surgifoam Gelatin Sponge - Cke5851709 Screw 2.5 X 4mm Ti 7 Schanz 14mm Thrd Body - [id number] Hemostat 2 X 14in 12-03-2016 Surgicel - [id number] Hemostat 8 X 6.25cm 05-25-19 18 X 10mm Surgifoam Gelatin Sponge - [id number] Screw 2 X 10mm Cross 018 Pin Locking - [id number] Screw 2 X 14mm Cross 018 Pin Locking - [id number] Plate 11hl Str Recon 018 - [id number] Bone Infuse Bone 11-03-2016 Graft Sm - [id number] Bone Infuse Bone 05-25-2017 Graft Xsm - [id number] Cement Bone 12-24-2016 Radiopaque Simplex P Single Dose - [id number] Tube Sz8 Trach 08-26-2016 Cuffed - [id number] Tube 22fr Feeding 08-26-2016 Gastrostomy Junior - Wfu135496 Screw 2.4 X 32mm Va 08-28-19 17 Lock Self-Tap Strdrv Rec - [id number] Screw 2.4 X 44mm Va 08-28-19 17 Lock Self-Tap Strdrv Rec - [id number] Screw 2.4 X 36mm 08-27-2016 Cortex Self-Tap T8 Strdrv Rec - [id number] Screw 2.4 X 38mm 08-27-2016 Cortex Self-Tap T8 Strdrv Rec - [id number] Wire K .045 X 5.5in 08-28-19 17 W/Wire Guide - [id number] Plate 2.4mm 2.7mm 08-27-2016 Va-Lock Mesh 5 X 12hls - [id number] Wire 15 X 150mm 08-27-2016 Compression Thrd - [id number] 1.6mm Compression 08-27-2016 Wires 20mm Thread Length, 1500mm Total Length Screw 2.4 X 18mm Moraima 017 Ang Lock Strdrv - [id number] Screw 2.4 X 20mm Moraima 017 Ang Lock Strdrv - Fhl114763 Screw 2.4 X 22mm Moraima 017 Ang Lock Strdrv - [id number] Hemostat 8 X 12.5cm 11-04-19 17 X 10mm Surgifoam Gelatin Sponge - [id number] Screw 2.5 X 4mm Ti 7 Schanz 14mm Thrd Body - [id number] Hemostat 2 X 14in 12-03-2016 Surgicel - [id number] Hemostat 8 X 6.25cm 05-25-19 18 X 10mm Surgifoam Gelatin Sponge - [id number] Screw 2 X 10mm Cross 018 Pin Locking - [id number] Screw 2 X 14mm Cross 018 Pin Locking - [id number] Plate 11hl Str Recon 018 - [id number] Bone Infuse Bone 11-03-2016 Graft Sm - [id number] Bone Infuse Bone 05-25-2017 Graft Xsm - [id number] Cement Bone 12-24-2016 Radiopaque Simplex P Single Dose - [id number] Tube Sz8 Trach 08-26-2016 Cuffed - [id number] Tube 22fr Feeding 08-26-2016 Gastrostomy Junior - [id number] Screw 2.4 X 32mm Va 08-28-19 17 Lock Self-Tap Strdrv Rec - [id number] Screw 2.4 X 44mm Va 08-28-19 17 Lock Self-Tap Strdrv Rec - [id number] Screw 2.4 X 36mm 08-27-2016 Cortex Self-Tap T8 Strdrv Rec - [id number] Screw 2.4 X 38mm 08-27-2016 Cortex Self-Tap T8 Strdrv Rec - [id number] Wire K .045 X 5.5in 08-28-19 17 W/Wire Guide - [id number] Plate 2.4mm 2.7mm 08-27-2016 Va-Lock Mesh 5 X 12hls - [id number] Wire 15 X 150mm 08-27-2016 Compression Thrd - [id number] 1.6mm Compression 08-27-2016 Wires 20mm Thread Length, 1500mm Total Length Screw 2.4 X 18mm Moraima 017 Ang Lock Strdrv - [id number] Screw 2.4 X 20mm Moraima 017 Ang Lock Strdrv - [id number] Screw 2.4 X 22mm Moraima 017 Ang Lock Strdrv - [id number] Hemostat 8 X 12.5cm 11-04-19 17 X 10mm Surgifoam Gelatin Sponge - [id number] Screw 2.5 X 4mm Ti 7 Schanz 14mm Thrd Body - [id number] Hemostat 2 X 14in 12-03-2016 Surgicel - [id number] Hemostat 8 X 6.25cm 05-25-19 18 X 10mm Surgifoam Gelatin Sponge - [id number] Screw 2 X 10mm Cross 018 Pin Locking - [id number] Screw 2 X 14mm Cross 018 Pin Locking - [id number] Plate 11hl Str Recon 018 - [id number] Bone Infuse Bone 11-03-2016 Graft Sm - [id number] Bone Infuse Bone 05-25-2017 Graft Xsm - [id number] Cement Bone 12-24-2016 Radiopaque Simplex P Single Dose - [id number] Tube Sz8 Trach 08-26-2016 Cuffed - [id number] Tube 22fr Feeding 08-26-2016 Gastrostomy Junior - Qji360166 Screw 2.4 X 32mm Va 08-28-19 17 Lock Self-Tap Strdrv Rec - [id number] Screw 2.4 X 44mm Va 08-28-19 17 Lock Self-Tap Strdrv Rec - [id number] Screw 2.4 X 36mm 08-27-2016 Cortex Self-Tap T8 Strdrv Rec - [id number] Screw 2.4 X 38mm 08-27-2016 Cortex Self-Tap T8 Strdrv Rec - [id number] Wire K .045 X 5.5in 08-28-19 17 W/Wire Guide - [id number] Plate 2.4mm 2.7mm 08-27-2016 Va-Lock Mesh 5 X 12hls - [id number] Wire 15 X 150mm 08-27-2016 Compression Thrd - [id number] 1.6mm Compression 08-27-2016 Wires 20mm Thread Length, 1500mm Total Length Screw 2.4 X 18mm Moraima 017 Ang Lock Strdrv - [id number] Screw 2.4 X 20mm Moraima 017 Ang Lock Strdrv - [id number] Screw 2.4 X 22mm Moraima 017 Ang Lock Strdrv - [id number] Hemostat 8 X 12.5cm 11-04-19 17 X 10mm Surgifoam Gelatin Sponge - [id number] Screw 2.5 X 4mm Ti 7 Schanz 14mm Thrd Body - [id number] Hemostat 2 X 14in 12-03-2016 Surgicel - [id number] Hemostat 8 X 6.25cm 05-25-19 18 X 10mm Surgifoam Gelatin Sponge - [id number] Screw 2 X 10mm Cross 018 Pin Locking - [id number] Screw 2 X 14mm Cross 018 Pin Locking - [id number] Plate 11hl Str Recon 018 - [id number] Bone Infuse Bone 11-03-2016 Graft Sm - [id number] Cement Bone 12-24-2016 Radiopaque Simplex P Single Dose - [id number] Tube Sz8 Trach 08-26-2016 Cuffed - [id number] Tube 22fr Feeding 08-26-2016 Gastrostomy Junior - Dms843756 Screw 2.4 X 32mm Va 08-28-19 17 Lock Self-Tap Strdrv Rec - [id number] Screw 2.4 X 44mm Va 08-28-19 17 Lock Self-Tap Strdrv Rec - [id number] Screw 2.4 X 36mm 08-27-2016 Cortex Self-Tap T8 Strdrv Rec - [id number] Screw 2.4 X 38mm 08-27-2016 Cortex Self-Tap T8 Strdrv Rec - [id number] Wire K .045 X 5.5in 08-28-19 17 W/Wire Guide - [id number] Plate 2.4mm 2.7mm 08-27-2016 Va-Lock Mesh 5 X 12hls - [id number] Wire 15 X 150mm 08-27-2016 Compression Thrd - [id number] 1.6mm Compression 08-27-2016 Wires 20mm Thread Length, 1500mm Total Length Screw 2.4 X 18mm Moraima 017 Ang Lock Strdrv - [id number] Screw 2.4 X 20mm Moraima 017 Ang Lock Strdrv - [id number] Screw 2.4 X 22mm Moraima 017 Ang Lock Strdrv - [id number] Hemostat 8 X 12.5cm 11-04-19 17 X 10mm Surgifoam Gelatin Sponge - [id number] Screw 2.5 X 4mm Ti 7 Schanz 14mm Thrd Body - [id number] Hemostat 2 X 14in 12-03-2016 Surgicel - [id number] Bone Infuse Bone 11-03-2016 Graft Sm - [id number] Tube Sz8 Trach 08-26-2016 Cuffed - [id number] Tube 22fr Feeding 08-26-2016 Gastrostomy Junior - [id number] Screw 2.4 X 32mm Va 08-28-19 17 Lock Self-Tap Strdrv Rec - [id number] Screw 2.4 X 44mm Va 08-28-19 17 Lock Self-Tap Strdrv Rec - [id number] Screw 2.4 X 36mm 08-27-2016 Cortex Self-Tap T8 Strdrv Rec - [id number] Screw 2.4 X 38mm 08-27-2016 Cortex Self-Tap T8 Strdrv Rec - [id number] Wire K .045 X 5.5in 08-28-19 17 W/Wire Guide - [id number] Plate 2.4mm 2.7mm 08-27-2016 Va-Lock Mesh 5 X 12hls - [id number] Wire 15 X 150mm 08-27-2016 Compression Thrd - [id number] 1.6mm Compression 08-27-2016 Wires 20mm Thread Length, 1500mm Total Length Screw 2.4 X 18mm Moraima 017 Ang Lock Strdrv - [id number] Screw 2.4 X 20mm Moraima 017 Ang Lock Strdrv - [id number] Screw 2.4 X 22mm Moraima 017 Ang Lock Strdrv - [id number] Hemostat 8 X 12.5cm 11-04-19 17 X 10mm Surgifoam Gelatin Sponge - [id number] Screw 2.5 X 4mm Ti 7 Schanz 14mm Thrd Body - [id number] Hemostat 2 X 14in 12-03-2016 Surgicel - [id number] Bone Infuse Bone 11-03-2016 Graft Sm - [id number] Cement Bone 12-24-2016 Radiopaque Simplex P Single Dose - [id number] Tube Sz8 Trach 08-26-2016 Cuffed - [id number] Tube 22fr Feeding 08-26-2016 Gastrostomy Junior - [id number] Screw 2.4 X 32mm Va 08-28-19 17 Lock Self-Tap Strdrv Rec - [id number] Screw 2.4 X 44mm Va 08-28-19 17 Lock Self-Tap Strdrv Rec - [id number] Screw 2.4 X 36mm 08-27-2016 Cortex Self-Tap T8 Strdrv Rec - [id number] Screw 2.4 X 38mm 08-27-2016 Cortex Self-Tap T8 Strdrv Rec - [id number] Wire K .045 X 5.5in 08-28-19 17 W/Wire Guide - [id number] Plate 2.4mm 2.7mm 08-27-2016 Va-Lock Mesh 5 X 12hls - [id number] Wire 15 X 150mm 08-27-2016 Compression Thrd - [id number] 1.6mm Compression 08-27-2016 Wires 20mm Thread Length, 1500mm Total Length Screw 2.4 X 18mm Moraima 017 Ang Lock Strdrv - [id number] Screw 2.4 X 20mm Moraima 017 Ang Lock Strdrv - [id number] Screw 2.4 X 22mm Moraima 017 Ang Lock Strdrv - [id number] Hemostat 8 X 12.5cm 11-04-19 17 X 10mm Surgifoam Gelatin Sponge - [id number] Screw 2.5 X 4mm Ti 7 Schanz 14mm Thrd Body - [id number] Hemostat 2 X 14in 12-03-2016 Surgicel - [id number] Bone Infuse Bone 11-03-2016 Graft Sm - [id number] Cement Bone 12-24-2016 Radiopaque Simplex P Single Dose - [id number] Tube Sz8 Trach 08-26-2016 Cuffed - [id number] Tube 22fr Feeding 08-26-2016 Gastrostomy Junior - [id number] Screw 2.4 X 32mm Va 08-28-19 17 Lock Self-Tap Strdrv Rec - [id number] Screw 2.4 X 44mm Va 08-28-19 17 Lock Self-Tap Strdrv Rec - [id number] Screw 2.4 X 36mm 08-27-2016 Cortex Self-Tap T8 Strdrv Rec - [id number] Screw 2.4 X 38mm 08-27-2016 Cortex Self-Tap T8 Strdrv Rec - [id number] Wire K .045 X 5.5in 08-28-19 17 W/Wire Guide - [id number] Plate 2.4mm 2.7mm 08-27-2016 Va-Lock Mesh 5 X 12hls - [id number] Wire 15 X 150mm 08-27-2016 Compression Thrd - [id number] 1.6mm Compression 08-27-2016 Wires 20mm Thread Length, 1500mm Total Length Screw 2.4 X 18mm [place] 017 Ang Lock Strdrv - [id number] Screw 2.4 X 20mm [place] 017 Ang Lock Strdrv - [id number] Screw 2.4 X 22mm [place] 017 Ang Lock Strdrv - [id number] Hemostat 8 X 12.5cm 11-04-19 17 X 10mm Surgifoam Gelatin Sponge - [id number] Screw 2.5 X 4mm Ti 7 Schanz 14mm Thrd Body - [id number] Hemostat 2 X 14in 12-03-2016 Surgicel - [id number] Bone Infuse Bone 11-03-2016 Graft Sm - [id number] Bone Infuse Bone 05-25-2017 Graft Xsm - [id number] Cement Bone 12-24-2016 Radiopaque Simplex P Single Dose - [id number] Tube Sz8 Trach 08-26-2016 Cuffed - [id number] Tube 22fr Feeding 08-26-2016 Gastrostomy Junior - [id number] Screw 2.4 X 32mm Va 08-28-19 17 Lock Self-Tap Strdrv Rec - [id number] Screw 2.4 X 44mm Va 08-28-19 17 Lock Self-Tap Strdrv Rec - [id number] Screw 2.4 X 36mm 08-27-2016 Cortex Self-Tap T8 Strdrv Rec - [id number] Screw 2.4 X 38mm 08-27-2016 Cortex Self-Tap T8 Strdrv Rec - [id number] Wire K .045 X 5.5in 08-28-19 17 W/Wire Guide - [id number] Plate 2.4mm 2.7mm 08-27-2016 Va-Lock Mesh 5 X 12hls - [id number] Wire 15 X 150mm 08-27-2016 Compression Thrd - [id number] 1.6mm Compression 08-27-2016 Wires 20mm Thread Length, 1500mm Total Length Screw 2.4 X 18mm [place] 017 Ang Lock Strdrv - [id number] Screw 2.4 X 20mm [place] 017 Ang Lock Strdrv - [id number] Screw 2.4 X 22mm [place] 017 Ang Lock Strdrv - [id number] Hemostat 8 X 12.5cm 11-04-19 17 X 10mm Surgifoam Gelatin Sponge - [id number] Screw 2.5 X 4mm Ti 7 Schanz 14mm Thrd Body - [id number] Hemostat 2 X 14in 12-03-2016 Surgicel - [id number] Hemostat 8 X 6.25cm 05-25-19 18 X 10mm Surgifoam Gelatin Sponge - [id number] Screw 2 X 10mm Cross 018 Pin Locking - [id number] Screw 2 X 14mm Cross 018 Pin Locking - [id number] Plate 11hl Str Recon 018 - [id number] Screw 2 X 12mm Mmf 8 Self-Drill - [id number] Bone Infuse Bone 11-03-2016 Graft Sm - [id number] Tube [id number] Trach 08-26-2016 Cuffed - [id number] Tube 22fr Feeding 08-26-2016 Gastrostomy Junior - [id number] Screw 2.4 X 32mm Va 08-28-19 17 Lock Self-Tap Strdrv Rec - [id number] Screw 2.4 X 44mm Va 08-28-19 17 Lock Self-Tap Strdrv Rec - [id number] Screw 2.4 X 36mm 08-27-2016 Cortex Self-Tap T8 Strdrv Rec - [id number] Screw 2.4 X 38mm 08-27-2016 Cortex Self-Tap T8 Strdrv Rec - [id number] Wire K .045 X 5.5in 08-28-19 17 W/Wire Guide - [id number] Plate 2.4mm 2.7mm 08-27-2016 Va-Lock Mesh 5 X 12hls - [id number] Wire 15 X 150mm 08-27-2016 Compression Thrd - [id number] 1.6mm Compression 08-27-2016 Wires 20mm Thread Length, 1500mm Total Length Screw 2.4 X 18mm [place] 017 Ang Lock Strdrv - [id number] Screw 2.4 X 20mm [place] 017 Ang Lock Strdrv - [id number] Screw 2.4 X 22mm [place] 017 Ang Lock Strdrv - [id number] Hemostat 8 X 12.5cm 11-04-19 17 X 10mm Surgifoam Gelatin Sponge - [id number] Screw 2.5 X 4mm Ti 7 Schanz 14mm Thrd Body - [id number] Hemostat 2 X 14in 12-03-2016 Surgicel - [id number] Bone Infuse Bone 11-03-2016 Graft Sm - [id number] Tube Sz8 Trach 08-26-2016 Cuffed - [id number] Tube 22fr Feeding 08-26-2016 Gastrostomy Junior - [id number] Screw 2.4 X 32mm Va 08-28-19 17 Lock Self-Tap Strdrv Rec - [id number] Screw 2.4 X 44mm Va 08-28-19 17 Lock Self-Tap Strdrv Rec - [id number] Screw 2.4 X 36mm 08-27-2016 Cortex Self-Tap T8 Strdrv Rec - [id number] Screw 2.4 X 38mm 08-27-2016 Cortex Self-Tap T8 Strdrv Rec - [id number] Wire K .045 X 5.5in 08-28-19 17 W/Wire Guide - [id number] Plate 2.4mm 2.7mm 08-27-2016 Va-Lock Mesh 5 X 12hls - [id number] Wire 15 X 150mm 08-27-2016 Compression Thrd - [id number] 1.6mm Compression 08-27-2016 Wires 20mm Thread Length, 1500mm Total Length Screw 2.4 X 18mm [place] 017 Ang Lock Strdrv - [id number] Screw 2.4 X 20mm [place] 017 Ang Lock Strdrv - [id number] Screw 2.4 X 22mm [place] 017 Ang Lock Strdrv - [id number] Hemostat 8 X 12.5cm 11-04-19 17 X 10mm Surgifoam Gelatin Sponge - [id number] Screw 2.5 X 4mm Ti 7 Schanz 14mm Thrd Body - [id number] Bone Infuse Bone 11-03-2016 Graft Sm - [id number] Tube Sz8 Trach 08-26-2016 Cuffed - [id number] Tube 22fr Feeding 08-26-2016 Gastrostomy Junior - [id number] Screw 2.4 X 32mm Va 08-28-19 17 Lock Self-Tap Strdrv Rec - [id number] Screw 2.4 X 44mm Va 08-28-19 17 Lock Self-Tap Strdrv Rec - [id number] Screw 2.4 X 36mm 08-27-2016 Cortex Self-Tap T8 Strdrv Rec - [id number] Screw 2.4 X 38mm 08-27-2016 Cortex Self-Tap T8 Strdrv Rec - [id number] Wire K .045 X 5.5in 08-28-19 17 W/Wire Guide - [id number] Plate 2.4mm 2.7mm 08-27-2016 Va-Lock Mesh 5 X 12hls - [id number] Wire 15 X 150mm 08-27-2016 Compression Thrd - [id number] 1.6mm Compression 08-27-2016 Wires 20mm Thread Length, 1500mm Total Length Screw 2.4 X 18mm [place] 017 Ang Lock Strdrv - [id number] Screw 2.4 X 20mm [place] 017 Ang Lock Strdrv - [id number] Screw 2.4 X 22mm [place] 017 Ang Lock Strdrv - [id number] Hemostat 8 X 12.5cm 11-04-19 17 X 10mm Surgifoam Gelatin Sponge - [id number] Screw 2.5 X 4mm Ti 7 Schanz 14mm Thrd Body - [id number] Hemostat 2 X 14in 12-03-2016 Surgicel - [id number] Bone Infuse Bone 11-03-2016 Graft Sm - [id number] Tube Sz8 Trach 08-26-2016 Cuffed - [id number] Tube 22fr Feeding 08-26-2016 Gastrostomy Junior - [id number] Screw 2.4 X 32mm Va 08-28-19 17 Lock Self-Tap Strdrv Rec - [id number] Screw 2.4 X 44mm Va 08-28-19 17 Lock Self-Tap Strdrv Rec - [id number] Screw 2.4 X 36mm 08-27-2016 Cortex Self-Tap T8 Strdrv Rec - [id number] Screw 2.4 X 38mm 08-27-2016 Cortex Self-Tap T8 Strdrv Rec - [id number] Wire K .045 X 5.5in 08-28-19 17 W/Wire Guide - [id number] Plate 2.4mm 2.7mm 08-27-2016 Va-Lock Mesh 5 X 12hls - [id number] Wire 15 X 150mm 08-27-2016 Compression Thrd - [id number] 1.6mm Compression 08-27-2016 Wires 20mm Thread Length, 1500mm Total Length Screw 2.4 X 18mm [place] 017 Ang Lock Strdrv - [id number] Screw 2.4 X 20mm [place] 017 Ang Lock Strdrv - [id number] Screw 2.4 X 22mm [place] 017 Ang Lock Strdrv - [id number] Hemostat 8 X 12.5cm 11-04-19 17 X 10mm Surgifoam Gelatin Sponge - [id number] Screw 2.5 X 4mm Ti 7 Schanz 14mm Thrd Body - [id number] Hemostat 2 X 14in 12-03-2016 Surgicel - [id number] Bone Infuse Bone 11-03-2016 Graft Sm - [id number] Tube Sz8 Trach 08-26-2016 Cuffed - [id number] Tube 22fr Feeding 08-26-2016 Gastrostomy Junior - Emk178986 Screw 2.4 X 32mm Va 08-28-19 17 Lock Self-Tap Strdrv Rec - Bqy106131 Screw 2.4 X 44mm Va 08-28-19 17 Lock Self-Tap Strdrv Rec - [id number] Screw 2.4 X 36mm 08-27-2016 Cortex Self-Tap T8 Strdrv Rec - [id number] Screw 2.4 X 38mm 08-27-2016 Cortex Self-Tap T8 Strdrv Rec - [id number] Wire K .045 X 5.5in 08-28-19 17 W/Wire Guide - [id number] Plate 2.4mm 2.7mm 08-27-2016 Va-Lock Mesh 5 X 12hls - [id number] Wire 15 X 150mm 08-27-2016 Compression Thrd - [id number] 1.6mm Compression 08-27-2016 Wires 20mm Thread Length, 1500mm Total Length Screw 2.4 X 18mm [place] 017 Ang Lock Strdrv - [id number] Screw 2.4 X 20mm [place] 017 Ang Lock Strdrv - [id number] Screw 2.4 X 22mm [place] 017 Ang Lock Strdrv - [id number] Hemostat 8 X 12.5cm 11-04-19 17 X 10mm Surgifoam Gelatin Sponge - [id number] Screw 2.5 X 4mm Ti 7 Schanz 14mm Thrd Body - [id number] Wire 24ga Dental - 7 [id number] Plate 11hl Str Recon 017 - [id number] Screw 2 X 12mm Mmf 7 Self-Drill - [id number] Screw 2 X 8mm Cross 11-04-19 17 Pin Locking - [id number] Screw 2 X 10mm Cross 017 Pin Locking - [id number] Screw 2 X 12mm Cross 017 Pin Locking - [id number] Bone Infuse Bone 11-03-2016 Graft Sm - [id number] Cement Bone 12-24-2016 Radiopaque Simplex P Single Dose - [id number] Tube Sz8 Trach 08-26-2016 Cuffed - [id number] Tube 22fr Feeding 08-26-2016 Gastrostomy Junior - Uqx183423 Screw 2.4 X 32mm Va 08-28-19 17 Lock Self-Tap Strdrv Rec - [id number] Screw 2.4 X 44mm Va 08-28-19 17 Lock Self-Tap Strdrv Rec - [id number] Screw 2.4 X 36mm 08-27-2016 Cortex Self-Tap T8 Strdrv Rec - Vej065034 Screw 2.4 X 38mm 08-27-2016 Cortex Self-Tap T8 Strdrv Rec - [id number] Wire K .045 X 5.5in 08-28-19 17 W/Wire Guide - [id number] Plate 2.4mm 2.7mm 08-27-2016 Va-Lock Mesh 5 X 12hls - [id number] Wire 15 X 150mm 08-27-2016 Compression Thrd - [id number] 1.6mm Compression 08-27-2016 Wires 20mm Thread Length, 1500mm Total Length Screw 2.4 X 18mm [place] 017 Ang Lock Strdrv - [id number] Screw 2.4 X 20mm [place] 017 Ang Lock Strdrv - [id number] Screw 2.4 X 22mm [place] 017 Ang Lock Strdrv - [id number] Hemostat 8 X 12.5cm 11-04-19 17 X 10mm Surgifoam Gelatin Sponge - [id number] Screw 2.5 X 4mm Ti 7 Schanz 14mm Thrd Body - [id number] Hemostat 2 X 14in 12-03-2016 Surgicel - [id number] Bone Infuse Bone 11-03-2016 Graft Sm - [id number] Cement Bone 12-24-2016 Radiopaque Simplex P Single Dose - [id number] Tube Sz8 Trach 08-26-2016 Cuffed - Mjv048056 Tube 22fr Feeding 08-26-2016 Gastrostomy Junior - Pga125843 Screw 2.4 X 32mm Va 08-28-19 17 Lock Self-Tap Strdrv Rec - [id number] Screw 2.4 X 44mm Va 08-28-19 17 Lock Self-Tap Strdrv Rec - [id number] Screw 2.4 X 36mm 08-27-2016 Cortex Self-Tap T8 Strdrv Rec - [id number] Screw 2.4 X 38mm 08-27-2016 Cortex Self-Tap T8 Strdrv Rec - [id number] Wire K .045 X 5.5in 08-28-19 17 W/Wire Guide - [id number] Plate 2.4mm 2.7mm 08-27-2016 Va-Lock Mesh 5 X 12hls - [id number] Wire 15 X 150mm 08-27-2016 Compression Thrd - [id number] 1.6mm Compression 08-27-2016 Wires 20mm Thread Length, 1500mm Total Length Screw 2.4 X 18mm [place] 017 Ang Lock Strdrv - Ixb349146 Screw 2.4 X 20mm [place] 017 Ang Lock Strdrv - Qqr195395 Screw 2.4 X 22mm [place] 017 Ang Lock Strdrv - [id number] Hemostat 8 X 12.5cm 11-04-19 17 X 10mm Surgifoam Gelatin Sponge - [id number] Screw 2.5 X 4mm Ti 7 Schanz 14mm Thrd Body - [id number] Hemostat 2 X 14in 12-03-2016 Surgicel - Itp0803991 Bone Infuse Bone 11-03-2016 Graft Sm - [id number] Cement Bone 12-24-2016 Radiopaque Simplex P Single Dose - [id number] Tube Sz8 Trach 08-26-2016 Cuffed - [id number] Tube 22fr Feeding 08-26-2016 Gastrostomy Junior - Oir786512 Screw 2.4 X 32mm Va 08-28-19 17 Lock Self-Tap Strdrv Rec - [id number] Screw 2.4 X 44mm Va 08-28-19 17 Lock Self-Tap Strdrv Rec - [id number] Screw 2.4 X 36mm 08-27-2016 Cortex Self-Tap T8 Strdrv Rec - [id number] Screw 2.4 X 38mm 08-27-2016 Cortex Self-Tap T8 Strdrv Rec - [id number] Wire K .045 X 5.5in 08-28-19 17 W/Wire Guide - [id number] Plate 2.4mm 2.7mm 08-27-2016 Va-Lock Mesh 5 X 12hls - [id number] Wire 15 X 150mm 08-27-2016 Compression Thrd - [id number] 1.6mm Compression 08-27-2016 Wires 20mm Thread Length, 1500mm Total Length Screw 2.4 X 18mm [place] 017 Ang Lock Strdrv - [id number] Screw 2.4 X 20mm [place] 017 Ang Lock Strdrv - [id number] Screw 2.4 X 22mm [place] 017 Ang Lock Strdrv - [id number] Hemostat 8 X 12.5cm 11-04-19 17 X 10mm Surgifoam Gelatin Sponge - Wmz9146261 Screw 2.5 X 4mm Ti 7 Schanz 14mm Thrd Body - [id number] Hemostat 2 X 14in 12-03-2016 Surgicel - [id number] Bone Infuse Bone 11-03-2016 Graft Sm - [id number] Cement Bone 12-24-2016 Radiopaque Simplex P Single Dose - [id number] Tube Sz8 Trach 08-26-2016 Cuffed - Jxe595001 Tube 22fr Feeding 08-26-2016 Gastrostomy Junior - [id number] Screw 2.4 X 32mm Va 08-28-19 17 Lock Self-Tap Strdrv Rec - [id number] Screw 2.4 X 44mm Va 08-28-19 17 Lock Self-Tap Strdrv Rec - Qsq512284 Screw 2.4 X 36mm 08-27-2016 Cortex Self-Tap T8 Strdrv Rec - [id number] Screw 2.4 X 38mm 08-27-2016 Cortex Self-Tap T8 Strdrv Rec - Zje851293 Wire K .045 X 5.5in 08-28-19 17 W/Wire Guide - [id number] Plate 2.4mm 2.7mm 08-27-2016 Va-Lock Mesh 5 X 12hls - [id number] Wire 15 X 150mm 08-27-2016 Compression Thrd - [id number] 1.6mm Compression 08-27-2016 Wires 20mm Thread Length, 1500mm Total Length Screw 2.4 X 18mm [place] 017 Ang Lock Strdrv - [id number] Screw 2.4 X 20mm [place] 017 Ang Lock Strdrv - Zqy355697 Screw 2.4 X 22mm [place] 017 Ang Lock Strdrv - [id number] Hemostat 8 X 12.5cm 11-04-19 17 X 10mm Surgifoam Gelatin Sponge - [id number] Screw 2.5 X 4mm Ti 7 Schanz 14mm Thrd Body - [id number] Hemostat 2 X 14in 12-03-2016 Surgicel - [id number] Bone Infuse Bone 11-03-2016 Graft Sm - [id number] Cement Bone 12-24-2016 Radiopaque Simplex P Single Dose - [id number] Tube Sz8 Trach 08-26-2016 Cuffed - [id number] Tube 22fr Feeding 08-26-2016 Gastrostomy Junior - Yef082898 Screw 2.4 X 32mm Va 08-28-19 17 Lock Self-Tap Strdrv Rec - Xac165522 Screw 2.4 X 44mm Va 08-28-19 17 Lock Self-Tap Strdrv Rec - Sgu163007 Screw 2.4 X 36mm 08-27-2016 Cortex Self-Tap T8 Strdrv Rec - Ugt668144 Screw 2.4 X 38mm 08-27-2016 Cortex Self-Tap T8 Strdrv Rec - [id number] Wire K .045 X 5.5in 08-28-19 17 W/Wire Guide - [id number] Plate 2.4mm 2.7mm 08-27-2016 Va-Lock Mesh 5 X 12hls - [id number] Wire 15 X 150mm 08-27-2016 Compression Thrd - [id number] 1.6mm Compression 08-27-2016 Wires 20mm Thread Length, 1500mm Total Length Screw 2.4 X 18mm [place] 017 Ang Lock Strdrv - Vyw921479 Screw 2.4 X 20mm [place] 017 Ang Lock Strdrv - [id number] Screw 2.4 X 22mm [place] 017 Ang Lock Strdrv - [id number] Hemostat 8 X 12.5cm 11-04-19 17 X 10mm Surgifoam Gelatin Sponge - [id number] Screw 2.5 X 4mm Ti 7 Schanz 14mm Thrd Body - [id number] Hemostat 2 X 14in 12-03-2016 Surgicel - [id number] Bone Infuse Bone 11-03-2016 Graft Sm - Agl6982880 Cement Bone 12-24-2016 Radiopaque Simplex P Single Dose - [id number] Tube Sz8 Trach 08-26-2016 Cuffed - [id number] Tube 22fr Feeding 08-26-2016 Gastrostomy Junior - [id number] Screw 2.4 X 32mm Va 08-28-19 17 Lock Self-Tap Strdrv Rec - [id number] Screw 2.4 X 44mm Va 08-28-19 17 Lock Self-Tap Strdrv Rec - [id number] Screw 2.4 X 36mm 08-27-2016 Cortex Self-Tap T8 Strdrv Rec - [id number] Screw 2.4 X 38mm 08-27-2016 Cortex Self-Tap T8 Strdrv Rec - Bqp443489 Wire K .045 X 5.5in 08-28-19 17 W/Wire Guide - [id number] Plate 2.4mm 2.7mm 08-27-2016 Va-Lock Mesh 5 X 12hls - Eqo234052 Wire 15 X 150mm 08-27-2016 Compression Thrd - [id number] 1.6mm Compression 08-27-2016 Wires 20mm Thread Length, 1500mm Total Length Screw 2.4 X 18mm [place] 017 Ang Lock Strdrv - [id number] Screw 2.4 X 20mm [place] 017 Ang Lock Strdrv - [id number] Screw 2.4 X 22mm [place] 017 Ang Lock Strdrv - [id number] Hemostat 8 X 12.5cm 11-04-19 17 X 10mm Surgifoam Gelatin Sponge - [id number] Screw 2.5 X 4mm Ti 7 Schanz 14mm Thrd Body - [id number] Hemostat 2 X 14in 12-03-2016 Surgicel - [id number] Bone Infuse Bone 11-03-2016 Graft Sm - [id number] Cement Bone 12-24-2016 Radiopaque Simplex P Single Dose - [id number] Tube Sz8 Trach 08-26-2016 Cuffed - [id number] Tube 22fr Feeding 08-26-2016 Gastrostomy Junior - Szt335928 Screw 2.4 X 32mm Va 08-28-19 17 Lock Self-Tap Strdrv Rec - Coq474839 Screw 2.4 X 44mm Va 08-28-19 17 Lock Self-Tap Strdrv Rec - [id number] Screw 2.4 X 36mm 08-27-2016 Cortex Self-Tap T8 Strdrv Rec - [id number] Screw 2.4 X 38mm 08-27-2016 Cortex Self-Tap T8 Strdrv Rec - Yqy841598 Wire K .045 X 5.5in 08-28-19 17 W/Wire Guide - [id number] Plate 2.4mm 2.7mm 08-27-2016 Va-Lock Mesh 5 X 12hls - Unz433354 Wire 15 X 150mm 08-27-2016 Compression Thrd - [id number] 1.6mm Compression 08-27-2016 Wires 20mm Thread Length, 1500mm Total Length Screw 2.4 X 18mm [place] 017 Ang Lock Strdrv - [id number] Screw 2.4 X 20mm [place] 017 Ang Lock Strdrv - [id number] Screw 2.4 X 22mm [place] 017 Ang Lock Strdrv - [id number] Hemostat 8 X 12.5cm 11-04-19 17 X 10mm Surgifoam Gelatin Sponge - [id number] Screw 2.5 X 4mm Ti 7 Schanz 14mm Thrd Body - [id number] Hemostat 2 X 14in 12-03-2016 Surgicel - [id number] Bone Infuse Bone 11-03-2016 Graft Sm - [id number] Cement Bone 12-24-2016 Radiopaque Simplex P Single Dose - [id number] Tube Sz8 Trach 08-26-2016 Cuffed - [id number] Tube 22fr Feeding 08-26-2016 Gastrostomy Junior - Alw026370 Screw 2.4 X 32mm Va 08-28-19 17 Lock Self-Tap Strdrv Rec - [id number] Screw 2.4 X 44mm Va 08-28-19 17 Lock Self-Tap Strdrv Rec - [id number] Screw 2.4 X 36mm 08-27-2016 Cortex Self-Tap T8 Strdrv Rec - [id number] Screw 2.4 X 38mm 08-27-2016 Cortex Self-Tap T8 Strdrv Rec - Jqj098799 Wire K .045 X 5.5in 08-28-19 17 W/Wire Guide - [id number] Plate 2.4mm 2.7mm 08-27-2016 Va-Lock Mesh 5 X 12hls - [id number] Wire 15 X 150mm 08-27-2016 Compression Thrd - [id number] 1.6mm Compression 08-27-2016 Wires 20mm Thread Length, 1500mm Total Length Screw 2.4 X 18mm [place] 017 Ang Lock Strdrv - Ozl803316 Screw 2.4 X 20mm [place] 017 Ang Lock Strdrv - [id number] Screw 2.4 X 22mm [place] 017 Ang Lock Strdrv - [id number] Hemostat 8 X 12.5cm 11-04-19 17 X 10mm Surgifoam Gelatin Sponge - [id number] Screw 2.5 X 4mm Ti 7 Schanz 14mm Thrd Body - [id number] Hemostat 2 X 14in 12-03-2016 Surgicel - [id number] Bone Infuse Bone 11-03-2016 Graft Sm - Okl9104926 Cement Bone 12-24-2016 Radiopaque Simplex P Single Dose - [id number] Tube Sz8 Trach 08-26-2016 Cuffed - Zko366600 Tube 22fr Feeding 08-26-2016 Gastrostomy Junior - Lzt196819 Screw 2.4 X 32mm Va 08-28-19 17 Lock Self-Tap Strdrv Rec - [id number] Screw 2.4 X 44mm Va 08-28-19 17 Lock Self-Tap Strdrv Rec - [id number] Screw 2.4 X 36mm 08-27-2016 Cortex Self-Tap T8 Strdrv Rec - [id number] Screw 2.4 X 38mm 08-27-2016 Cortex Self-Tap T8 Strdrv Rec - [id number] Wire K .045 X 5.5in 08-28-19 17 W/Wire Guide - [id number] Plate 2.4mm 2.7mm 08-27-2016 Va-Lock Mesh 5 X 12hls - [id number] Wire 15 X 150mm 08-27-2016 Compression Thrd - [id number] 1.6mm Compression 08-27-2016 Wires 20mm Thread Length, 1500mm Total Length Screw 2.4 X 18mm [place] 017 Ang Lock Strdrv - [id number] Screw 2.4 X 20mm [place] 017 Ang Lock Strdrv - [id number] Screw 2.4 X 22mm [place] 017 Ang Lock Strdrv - [id number] Hemostat 8 X 12.5cm 11-04-19 17 X 10mm Surgifoam Gelatin Sponge - [id number] Screw 2.5 X 4mm Ti 7 Schanz 14mm Thrd Body - [id number] Hemostat 2 X 14in 12-03-2016 Surgicel - [id number] Bone Infuse Bone 11-03-2016 Graft Sm - [id number] Cement Bone 12-24-2016 Radiopaque Simplex P Single Dose - [id number] Tube Sz8 Trach 08-26-2016 Cuffed - [id number] Tube 22fr Feeding 08-26-2016 Gastrostomy Junior - [id number] Screw 2.4 X 32mm Va 08-28-19 17 Lock Self-Tap Strdrv Rec - [id number] Screw 2.4 X 44mm Va 08-28-19 17 Lock Self-Tap Strdrv Rec - [id number] Screw 2.4 X 36mm 08-27-2016 Cortex Self-Tap T8 Strdrv Rec - [id number] Screw 2.4 X 38mm 08-27-2016 Cortex Self-Tap T8 Strdrv Rec - [id number] Wire K .045 X 5.5in 08-28-19 17 W/Wire Guide - [id number] Plate 2.4mm 2.7mm 08-27-2016 Va-Lock Mesh 5 X 12hls - [id number] Wire 15 X 150mm 08-27-2016 Compression Thrd - [id number] 1.6mm Compression 08-27-2016 Wires 20mm Thread Length, 1500mm Total Length Screw 2.4 X 18mm [place] 017 Ang Lock Strdrv - [id number] Screw 2.4 X 20mm [place] 017 Ang Lock Strdrv - Qnw797889 Screw 2.4 X 22mm [place] 017 Ang Lock Strdrv - Myv489349 Hemostat 8 X 12.5cm 11-04-19 17 X 10mm Surgifoam Gelatin Sponge - [id number] Screw 2.5 X 4mm Ti 7 Schanz 14mm Thrd Body - [id number] Hemostat 2 X 14in 12-03-2016 Surgicel - [id number] Bone Infuse Bone 11-03-2016 Graft Sm - [id number] Bone Infuse Bone 05-25-2017 Graft Xsm - [id number] Cement Bone 12-24-2016 Radiopaque Simplex P Single Dose - [id number] Tube Sz8 Trach 08-26-2016 Cuffed - Ubv064555 Tube 22fr Feeding 08-26-2016 Gastrostomy Junior - [id number] Screw 2.4 X 32mm Va 08-28-19 17 Lock Self-Tap Strdrv Rec - [id number] Screw 2.4 X 44mm Va 08-28-19 17 Lock Self-Tap Strdrv Rec - [id number] Screw 2.4 X 36mm 08-27-2016 Cortex Self-Tap T8 Strdrv Rec - [id number] Screw 2.4 X 38mm 08-27-2016 Cortex Self-Tap T8 Strdrv Rec - [id number] Wire K .045 X 5.5in 08-28-19 17 W/Wire Guide - [id number] Plate 2.4mm 2.7mm 08-27-2016 Va-Lock Mesh 5 X 12hls - [id number] Wire 15 X 150mm 08-27-2016 Compression Thrd - [id number] 1.6mm Compression 08-27-2016 Wires 20mm Thread Length, 1500mm Total Length Screw 2.4 X 18mm [place] 017 Ang Lock Strdrv - [id number] Screw 2.4 X 20mm [place] 017 Ang Lock Strdrv - [id number] Screw 2.4 X 22mm [place] 017 Ang Lock Strdrv - [id number] Hemostat 8 X 12.5cm 11-04-19 17 X 10mm Surgifoam Gelatin Sponge - [id number] Screw 2.5 X 4mm Ti 7 Schanz 14mm Thrd Body - [id number] Hemostat 2 X 14in 12-03-2016 Surgicel - [id number] Hemostat 8 X 6.25cm 05-25-19 18 X 10mm Surgifoam Gelatin Sponge - [id number] Screw 2 X 10mm Cross 018 Pin Locking - [id number] Screw 2 X 14mm Cross 018 Pin Locking - [id number] Plate 11hl Str Recon 018 - [id number] Bone Infuse Bone 11-03-2016 Graft Sm - [id number] Cement Bone 12-24-2016 Radiopaque Simplex P Single Dose - [id number] Tube Sz8 Trach 08-26-2016 Cuffed - [id number] Tube 22fr Feeding 08-26-2016 Gastrostomy Junior - Quu310571 Screw 2.4 X 32mm Va 08-28-19 17 Lock Self-Tap Strdrv Rec - [id number] Screw 2.4 X 44mm Va 08-28-19 17 Lock Self-Tap Strdrv Rec - Mxw057128 Screw 2.4 X 36mm 08-27-2016 Cortex Self-Tap T8 Strdrv Rec - [id number] Screw 2.4 X 38mm 08-27-2016 Cortex Self-Tap T8 Strdrv Rec - [id number] Wire K .045 X 5.5in 08-28-19 17 W/Wire Guide - [id number] Plate 2.4mm 2.7mm 08-27-2016 Va-Lock Mesh 5 X 12hls - [id number] Wire 15 X 150mm 08-27-2016 Compression Thrd - [id number] 1.6mm Compression 08-27-2016 Wires 20mm Thread Length, 1500mm Total Length Screw 2.4 X 18mm [place] 017 Ang Lock Strdrv - [id number] Screw 2.4 X 20mm [place] 017 Ang Lock Strdrv - [id number] Bone Infuse Bone 11-03-2016 Graft Sm - [id number] Hemostat 8 X 12.5cm 11-04-19 17 X 10mm Surgifoam Gelatin Sponge - [id number] Screw 2.5 X 4mm Ti 7 Schanz 14mm Thrd Body - [id number] Hemostat 2 X 14in 12-03-2016 Surgicel - [id number] Bone Infuse Bone 11-03-2016 Graft Sm - [id number] Cement Bone 12-24-2016 Radiopaque Simplex P Single Dose - [id number] Tube Sz8 Trach 08-26-2016 Cuffed - Vdp874805 Tube 22fr Feeding 08-26-2016 Gastrostomy Junior - Tpl695666 Screw 2.4 X 32mm Va 08-28-19 17 Lock Self-Tap Strdrv Rec - [id number] Screw 2.4 X 44mm Va 08-28-19 17 Lock Self-Tap Strdrv Rec - [id number] Screw 2.4 X 36mm 08-27-2016 Cortex Self-Tap T8 Strdrv Rec - [id number] Screw 2.4 X 38mm 08-27-2016 Cortex Self-Tap T8 Strdrv Rec - [id number] Wire K .045 X 5.5in 08-28-19 17 W/Wire Guide - [id number] Plate 2.4mm 2.7mm 08-27-2016 Va-Lock Mesh 5 X 12hls - [id number] Wire 15 X 150mm 08-27-2016 Compression Thrd - [id number] 1.6mm Compression 08-27-2016 Wires 20mm Thread Length, 1500mm Total Length Screw 2.4 X 18mm [place] 017 Ang Lock Strdrv - [id number] Screw 2.4 X 20mm [place] 017 Ang Lock Strdrv - Zsd457753 Screw 2.4 X 22mm [place] 017 Ang Lock Strdrv - [id number] Hemostat 8 X 12.5cm 11-04-19 17 X 10mm Surgifoam Gelatin Sponge - [id number] Screw 2.5 X 4mm Ti 7 Schanz 14mm Thrd Body - [id number] Hemostat 2 X 14in 12-03-2016 Surgicel - [id number] Bone Infuse Bone 11-03-2016 Graft Sm - [id number] Cement Bone 12-24-2016 Radiopaque Simplex P Single Dose - [id number] Tube Sz8 Trach 08-26-2016 Cuffed - [id number] Tube 22fr Feeding 08-26-2016 Gastrostomy Junior - [id number] Screw 2.4 X 32mm Va 08-28-19 17 Lock Self-Tap Strdrv Rec - Ixo049800 Screw 2.4 X 44mm Va 08-28-19 17 Lock Self-Tap Strdrv Rec - [id number] Screw 2.4 X 36mm 08-27-2016 Cortex Self-Tap T8 Strdrv Rec - [id number] Screw 2.4 X 38mm 08-27-2016 Cortex Self-Tap T8 Strdrv Rec - Oli377582 Wire K .045 X 5.5in 08-28-19 17 W/Wire Guide - [id number] Plate 2.4mm 2.7mm 08-27-2016 Va-Lock Mesh 5 X 12hls - [id number] Wire 15 X 150mm 08-27-2016 Compression Thrd - [id number] 1.6mm Compression 08-27-2016 Wires 20mm Thread Length, 1500mm Total Length Screw 2.4 X 18mm [place] 017 Ang Lock Strdrv - [id number] Screw 2.4 X 20mm [place] 017 Ang Lock Strdrv - [id number] Screw 2.4 X 22mm [place] 017 Ang Lock Strdrv - [id number] Hemostat 8 X 12.5cm 11-04-19 17 X 10mm Surgifoam Gelatin Sponge - [id number] Screw 2.5 X 4mm Ti 7 Schanz 14mm Thrd Body - [id number] Hemostat 2 X 14in 12-03-2016 Surgicel - [id number] Bone Infuse Bone 11-03-2016 Graft Sm - [id number] Cement Bone 12-24-2016 Radiopaque Simplex P Single Dose - [id number] Tube Sz8 Trach 08-26-2016 Cuffed - [id number] Tube 22fr Feeding 08-26-2016 Gastrostomy Junior - [id number] Screw 2.4 X 32mm Va 08-28-19 17 Lock Self-Tap Strdrv Rec - [id number] Screw 2.4 X 44mm Va 08-28-19 17 Lock Self-Tap Strdrv Rec - [id number] Screw 2.4 X 36mm 08-27-2016 Cortex Self-Tap T8 Strdrv Rec - [id number] Screw 2.4 X 38mm 08-27-2016 Cortex Self-Tap T8 Strdrv Rec - [id number] Wire K .045 X 5.5in 08-28-19 17 W/Wire Guide - [id number] Plate 2.4mm 2.7mm 08-27-2016 Va-Lock Mesh 5 X 12hls - [id number] Wire 15 X 150mm 08-27-2016 Compression Thrd - [id number] 1.6mm Compression 08-27-2016 Wires 20mm Thread Length, 1500mm Total Length Screw 2.4 X 18mm [place] 017 Ang Lock Strdrv - [id number] Screw 2.4 X 20mm [place] 017 Ang Lock Strdrv - [id number] Screw 2.4 X 22mm [place] 017 Ang Lock Strdrv - [id number] Hemostat 8 X 12.5cm 11-04-19 17 X 10mm Surgifoam Gelatin Sponge - [id number] Screw 2.5 X 4mm Ti 7 Schanz 14mm Thrd Body - [id number] Hemostat 2 X 14in 12-03-2016 Surgicel - [id number] Bone Infuse Bone 11-03-2016 Graft Sm - [id number] Bone Infuse Bone 05-25-2017 Graft Xsm - [id number] Cement Bone 12-24-2016 Radiopaque Simplex P Single Dose - [id number] Tube Sz8 Trach 08-26-2016 Cuffed - [id number] Tube 22fr Feeding 08-26-2016 Gastrostomy Junior - [id number] Screw 2.4 X 32mm Va 08-28-19 17 Lock Self-Tap Strdrv Rec - [id number] Screw 2.4 X 44mm Va 08-28-19 17 Lock Self-Tap Strdrv Rec - [id number] Screw 2.4 X 36mm 08-27-2016 Cortex Self-Tap T8 Strdrv Rec - [id number] Screw 2.4 X 38mm 08-27-2016 Cortex Self-Tap T8 Strdrv Rec - [id number] Wire K .045 X 5.5in 08-28-19 17 W/Wire Guide - [id number] Plate 2.4mm 2.7mm 08-27-2016 Va-Lock Mesh 5 X 12hls - [id number] Wire 15 X 150mm 08-27-2016 Compression Thrd - [id number] 1.6mm Compression 08-27-2016 Wires 20mm Thread Length, 1500mm Total Length Screw 2.4 X 18mm [place] 017 Ang Lock Strdrv - [id number] Screw 2.4 X 20mm [place] 017 Ang Lock Strdrv - [id number] Screw 2.4 X 22mm [place] 017 Ang Lock Strdrv - [id number] Hemostat 8 X 12.5cm 11-04-19 17 X 10mm Surgifoam Gelatin Sponge - [id number] Screw 2.5 X 4mm Ti 7 Schanz 14mm Thrd Body - [id number] Hemostat 2 X 14in 12-03-2016 Surgicel - [id number] Hemostat 8 X 6.25cm 05-25-19 18 X 10mm Surgifoam Gelatin Sponge - [id number] Screw 2 X 10mm Cross 018 Pin Locking - [id number] Screw 2 X 14mm Cross 018 Pin Locking - [id number] Plate 11hl Str Recon 018 - [id number] Bone Infuse Bone 11-03-2016 Graft Sm - [id number] Bone Infuse Bone 05-25-2017 Graft Xsm - [id number] Cement Bone 12-24-2016 Radiopaque Simplex P Single Dose - [id number] Tube Sz8 Trach 08-26-2016 Cuffed - [id number] Tube 22fr Feeding 08-26-2016 Gastrostomy Junior - [id number] Screw 2.4 X 32mm Va 08-28-19 17 Lock Self-Tap Strdrv Rec - [id number] Screw 2.4 X 44mm Va 08-28-19 17 Lock Self-Tap Strdrv Rec - [id number] Screw 2.4 X 36mm 08-27-2016 Cortex Self-Tap T8 Strdrv Rec - [id number] Screw 2.4 X 38mm 08-27-2016 Cortex Self-Tap T8 Strdrv Rec - [id number] Wire K .045 X 5.5in 08-28-19 17 W/Wire Guide - [id number] Plate 2.4mm 2.7mm 08-27-2016 Va-Lock Mesh 5 X 12hls - [id number] Wire 15 X 150mm 08-27-2016 Compression Thrd - [id number] 1.6mm Compression 08-27-2016 Wires 20mm Thread Length, 1500mm Total Length Screw 2.4 X 18mm Moraima 017 Ang Lock Strdrv - [id number] Screw 2.4 X 20mm Moraima 017 Ang Lock Strdrv - [id number] Screw 2.4 X 22mm [place] 017 Ang Lock Strdrv - [id number] Hemostat 8 X 12.5cm 11-04-19 17 X 10mm Surgifoam Gelatin Sponge - [id number] Screw 2.5 X 4mm Ti 7 Schanz 14mm Thrd Body - [id number] Hemostat 2 X 14in 12-03-2016 Surgicel - [id number] Hemostat 8 X 6.25cm 05-25-19 18 X 10mm Surgifoam Gelatin Sponge - [id number] Screw 2 X 10mm Cross 018 Pin Locking - [id number] Screw 2 X 14mm Cross 018 Pin Locking - [id number] Plate 11hl Str Recon 018 - [id number] Bone Infuse Bone 11-03-2016 Graft Sm - [id number] Bone Infuse Bone 05-25-2017 Graft Xsm - [id number] Cement Bone 12-24-2016 Radiopaque Simplex P Single Dose - [id number] Tube Sz8 Trach 08-26-2016 Cuffed - [id number] Tube 22fr Feeding 08-26-2016 Gastrostomy Junior - Vyq060946 Screw 2.4 X 32mm Va 08-28-19 17 Lock Self-Tap Strdrv Rec - [id number] Screw 2.4 X 44mm Va 08-28-19 17 Lock Self-Tap Strdrv Rec - [id number] Screw 2.4 X 36mm 08-27-2016 Cortex Self-Tap T8 Strdrv Rec - [id number] Screw 2.4 X 38mm 08-27-2016 Cortex Self-Tap T8 Strdrv Rec - [id number] Wire K .045 X 5.5in 08-28-19 17 W/Wire Guide - [id number] Plate 2.4mm 2.7mm 08-27-2016 Va-Lock Mesh 5 X 12hls - [id number] Wire 15 X 150mm 08-27-2016 Compression Thrd - [id number] 1.6mm Compression 08-27-2016 Wires 20mm Thread Length, 1500mm Total Length Screw 2.4 X 18mm [place] 017 Ang Lock Strdrv - [id number] Screw 2.4 X 20mm [place] 017 Ang Lock Strdrv - [id number] Screw 2.4 X 22mm [place] 017 Ang Lock Strdrv - [id number] Hemostat 8 X 12.5cm 11-04-19 17 X 10mm Surgifoam Gelatin Sponge - [id number] Screw 2.5 X 4mm Ti 7 Schanz 14mm Thrd Body - [id number] Hemostat 2 X 14in 12-03-2016 Surgicel - [id number] Hemostat 8 X 6.25cm 05-25-19 18 X 10mm Surgifoam Gelatin Sponge - [id number] Screw 2 X 10mm Cross 018 Pin Locking - [id number] Screw 2 X 14mm Cross 018 Pin Locking - [id number] Plate 11hl Str Recon 018 - [id number] Bone Infuse Bone 11-03-2016 Graft Sm - [id number] Bone Infuse Bone 05-25-2017 Graft Xsm - [id number] Cement Bone 12-24-2016 Radiopaque Simplex P Single Dose - [id number] Tube Sz8 Trach 08-26-2016 Cuffed - [id number] Tube 22fr Feeding 08-26-2016 Gastrostomy Junior - [id number] Screw 2.4 X 32mm Va 08-28-19 17 Lock Self-Tap Strdrv Rec - [id number] Screw 2.4 X 44mm Va 08-28-19 17 Lock Self-Tap Strdrv Rec - [id number] Screw 2.4 X 36mm 08-27-2016 Cortex Self-Tap T8 Strdrv Rec - [id number] Screw 2.4 X 38mm 08-27-2016 Cortex Self-Tap T8 Strdrv Rec - Wjf059765 Wire K .045 X 5.5in 08-28-19 17 W/Wire Guide - [id number] Plate 2.4mm 2.7mm 08-27-2016 Va-Lock Mesh 5 X 12hls - [id number] Wire 15 X 150mm 08-27-2016 Compression Thrd - [id number] 1.6mm Compression 08-27-2016 Wires 20mm Thread Length, 1500mm Total Length Screw 2.4 X 18mm [place] 017 Ang Lock Strdrv - [id number] Screw 2.4 X 20mm [place] 017 Ang Lock Strdrv - Xju067597 Screw 2.4 X 22mm [place] 017 Ang Lock Strdrv - [id number] Hemostat 8 X 12.5cm 11-04-19 17 X 10mm Surgifoam Gelatin Sponge - [id number] Screw 2.5 X 4mm Ti 7 Schanz 14mm Thrd Body - [id number] Hemostat 2 X 14in 12-03-2016 Surgicel - [id number] Hemostat 8 X 6.25cm 05-25-19 18 X 10mm Surgifoam Gelatin Sponge - Atw0790548 Screw 2 X 10mm Cross 018 Pin Locking - [id number] Screw 2 X 14mm Cross 018 Pin Locking - [id number] Plate 11hl Str Recon 018 - [id number] Bone Infuse Bone 11-03-2016 Graft Sm - [id number] Bone Infuse Bone 05-25-2017 Graft Xsm - [id number] Cement Bone 12-24-2016 Radiopaque Simplex P Single Dose - [id number] Tube Sz8 Trach 08-26-2016 Cuffed - [id number] Tube 22fr Feeding 08-26-2016 Gastrostomy Junior - Hhg125184 Screw 2.4 X 32mm Va 08-28-19 17 Lock Self-Tap Strdrv Rec - [id number] Screw 2.4 X 44mm Va 08-28-19 17 Lock Self-Tap Strdrv Rec - Wlq489138 Screw 2.4 X 36mm 08-27-2016 Cortex Self-Tap T8 Strdrv Rec - [id number] Screw 2.4 X 38mm 08-27-2016 Cortex Self-Tap T8 Strdrv Rec - [id number] Wire K .045 X 5.5in 08-28-19 17 W/Wire Guide - [id number] Plate 2.4mm 2.7mm 08-27-2016 Va-Lock Mesh 5 X 12hls - [id number] Wire 15 X 150mm 08-27-2016 Compression Thrd - [id number] 1.6mm Compression 08-27-2016 Wires 20mm Thread Length, 1500mm Total Length Screw 2.4 X 18mm [place] 017 Ang Lock Strdrv - [id number] Screw 2.4 X 20mm [place] 017 Ang Lock Strdrv - [id number] Screw 2.4 X 22mm [place] 017 Ang Lock Strdrv - [id number] Hemostat 8 X 12.5cm 11-04-19 17 X 10mm Surgifoam Gelatin Sponge - Dcq3857334 Screw 2.5 X 4mm Ti 7 Schanz 14mm Thrd Body - [id number] Hemostat 2 X 14in 12-03-2016 Surgicel - [id number] Hemostat 8 X 6.25cm 05-25-19 18 X 10mm Surgifoam Gelatin Sponge - Zoy7609547 Screw 2 X 10mm Cross 018 Pin Locking - [id number] Screw 2 X 14mm Cross 018 Pin Locking - [id number] Plate 11hl Str Recon 018 - [id number] Bone Infuse Bone 11-03-2016 Graft Sm - [id number] Bone Infuse Bone 05-25-2017 Graft Xsm - [id number] Cement Bone 12-24-2016 Radiopaque Simplex P Single Dose - [id number] Tube Sz8 Trach 08-26-2016 Cuffed - [id number] Tube 22fr Feeding 08-26-2016 Gastrostomy Junior - Gls132268 Screw 2.4 X 32mm Va 08-28-19 17 Lock Self-Tap Strdrv Rec - [id number] Screw 2.4 X 44mm Va 08-28-19 17 Lock Self-Tap Strdrv Rec - [id number] Screw 2.4 X 36mm 08-27-2016 Cortex Self-Tap T8 Strdrv Rec - Jfm704959 Screw 2.4 X 38mm 08-27-2016 Cortex Self-Tap T8 Strdrv Rec - [id number] Wire K .045 X 5.5in 08-28-19 17 W/Wire Guide - [id number] Plate 2.4mm 2.7mm 08-27-2016 Va-Lock Mesh 5 X 12hls - Zct099260 Wire 15 X 150mm 08-27-2016 Compression Thrd - [id number] 1.6mm Compression 08-27-2016 Wires 20mm Thread Length, 1500mm Total Length Screw 2.4 X 18mm [place] 017 Ang Lock Strdrv - Pyb716082 Screw 2.4 X 20mm [place] 017 Ang Lock Strdrv - Qij469256 Screw 2.4 X 22mm [place] 017 Ang Lock Strdrv - [id number] Hemostat 8 X 12.5cm 11-04-19 17 X 10mm Surgifoam Gelatin Sponge - [id number] Screw 2.5 X 4mm Ti 7 Schanz 14mm Thrd Body - [id number] Hemostat 2 X 14in 12-03-2016 Surgicel - [id number] Hemostat 8 X 6.25cm 05-25-19 18 X 10mm Surgifoam Gelatin Sponge - [id number] Screw 2 X 10mm Cross 018 Pin Locking - [id number] Screw 2 X 14mm Cross 018 Pin Locking - [id number] Plate 11hl Str Recon 018 - [id number] Bone Infuse Bone 11-03-2016 Graft Sm - [id number] Cement Bone 12-24-2016 Radiopaque Simplex P Single Dose - [id number] Tube Sz8 Trach 08-26-2016 Cuffed - [id number] Tube 22fr Feeding 08-26-2016 Gastrostomy Junior - [id number] Screw 2.4 X 32mm Va 08-28-19 17 Lock Self-Tap Strdrv Rec - Jwl139976 Screw 2.4 X 44mm Va 08-28-19 17 Lock Self-Tap Strdrv Rec - [id number] Screw 2.4 X 36mm 08-27-2016 Cortex Self-Tap T8 Strdrv Rec - [id number] Screw 2.4 X 38mm 08-27-2016 Cortex Self-Tap T8 Strdrv Rec - Zlt133489 Wire K .045 X 5.5in 08-28-19 17 W/Wire Guide - [id number] Plate 2.4mm 2.7mm 08-27-2016 Va-Lock Mesh 5 X 12hls - Uuz362853 Wire 15 X 150mm 08-27-2016 Compression Thrd - [id number] 1.6mm Compression 08-27-2016 Wires 20mm Thread Length, 1500mm Total Length Screw 2.4 X 18mm [place] 017 Ang Lock Strdrv - [id number] Screw 2.4 X 20mm [place] 017 Ang Lock Strdrv - Ags166089 Screw 2.4 X 22mm [place] 017 Ang Lock Strdrv - Ozl776439 Hemostat 8 X 12.5cm 11-04-19 17 X 10mm Surgifoam Gelatin Sponge - Gwb7970815 Screw 2.5 X 4mm Ti 7 Schanz 14mm Thrd Body - [id number] Hemostat 2 X 14in 12-03-2016 Surgicel - [id number] Bone Infuse Bone 11-03-2016 Graft Sm - [id number] Bone Infuse Bone 05-25-2017 Graft Xsm - [id number] Cement Bone 12-24-2016 Radiopaque Simplex P Single Dose - [id number] Tube Sz8 Trach 08-26-2016 Cuffed - Sbm848550 Tube 22fr Feeding 08-26-2016 Gastrostomy Junior - Zwb555458 Screw 2.4 X 32mm Va 08-28-19 17 Lock Self-Tap Strdrv Rec - Ebq298884 Screw 2.4 X 44mm Va 08-28-19 17 Lock Self-Tap Strdrv Rec - [id number] Screw 2.4 X 36mm 08-27-2016 Cortex Self-Tap T8 Strdrv Rec - Cax072682 Screw 2.4 X 38mm 08-27-2016 Cortex Self-Tap T8 Strdrv Rec - [id number] Wire K .045 X 5.5in 08-28-19 17 W/Wire Guide - [id number] Plate 2.4mm 2.7mm 08-27-2016 Va-Lock Mesh 5 X 12hls - Cwe304442 Wire 15 X 150mm 08-27-2016 Compression Thrd - [id number] 1.6mm Compression 08-27-2016 Wires 20mm Thread Length, 1500mm Total Length Screw 2.4 X 18mm [place] 017 Ang Lock Strdrv - Uyv987392 Screw 2.4 X 20mm [place] 017 Ang Lock Strdrv - Kcz395342 Screw 2.4 X 22mm [place] 017 Ang Lock Strdrv - Eqt109951 Hemostat 8 X 12.5cm 11-04-19 17 X 10mm Surgifoam Gelatin Sponge - Ako1830321 Screw 2.5 X 4mm Ti 7 Schanz 14mm Thrd Body - Etx6173027 Hemostat 2 X 14in 12-03-2016 Surgicel - [id number] Hemostat 8 X 6.25cm 05-25-19 18 X 10mm Surgifoam Gelatin Sponge - Gvc6869969 Screw 2 X 10mm Cross 018 Pin Locking - [id number] Screw 2 X 14mm Cross 018 Pin Locking - [id number] Plate 11hl Str Recon 018 - [id number] Bone Infuse Bone 11-03-2016 Graft Sm - [id number] Bone Infuse Bone 05-25-2017 Graft Xsm - Yte0373457 Bone Infuse Bone 05-12-2018 Graft Sm - [id number] Cement Bone 12-24-2016 Radiopaque Simplex P Single Dose - Gkz5492447 Tube Sz8 Trach 08-26-2016 Cuffed - Fnk472841 Tube 22fr Feeding 08-26-2016 Gastrostomy Junior - Liy376101 Screw 2.4 X 32mm Va 08-28-19 17 Lock Self-Tap Strdrv Rec - Ycw190975 Screw 2.4 X 44mm Va 08-28-19 17 Lock Self-Tap Strdrv Rec - Uyu158950 Screw 2.4 X 36mm 08-27-2016 Cortex Self-Tap T8 Strdrv Rec - [id number] Screw 2.4 X 38mm 08-27-2016 Cortex Self-Tap T8 Strdrv Rec - Pzc167268 Wire K .045 X 5.5in 08-28-19 17 W/Wire Guide - [id number] Plate 2.4mm 2.7mm 08-27-2016 Va-Lock Mesh 5 X 12hls - [id number] Wire 15 X 150mm 08-27-2016 Compression Thrd - [id number] 1.6mm Compression 08-27-2016 Wires 20mm Thread Length, 1500mm Total Length Screw 2.4 X 18mm [place] 017 Ang Lock Strdrv - [id number] Screw 2.4 X 20mm [place] 017 Ang Lock Strdrv - Wej660100 Screw 2.4 X 22mm [place] 017 Ang Lock Strdrv - [id number] Hemostat 8 X 12.5cm 11-04-19 17 X 10mm Surgifoam Gelatin Sponge - [id number] Screw 2.5 X 4mm Ti 7 Schanz 14mm Thrd Body - Uyk6769689 Hemostat 2 X 14in 12-03-2016 Surgicel - [id number] Hemostat 8 X 6.25cm 05-25-19 18 X 10mm Surgifoam Gelatin Sponge - [id number] Plate 14hl Fracture 05-12-19 19 - [id number] Screw 2 X 14mm Cross 019 Pin Locking - Jwn0663773 Screw 2 X 10mm Cross 019 Pin Locking - [id number] Screw 2 X 8mm Cross 05-12-19 19 Pin Locking - [id number] Screw 2 X 16mm Cross 019 Pin Locking - [id number] Screw 2 X 10mm Cross 018 Pin Locking - Ylh1845771 Screw 2 X 14mm Cross 018 Pin Locking - [id number] Plate 11hl Str Recon 018 - [id number] Bone Infuse Bone 11-03-2016 Graft Sm - [id number] Bone Infuse Bone 05-25-2017 Graft Xsm - Oye0677865 Bone Infuse Bone 05-12-2018 Graft Sm - Alv6343825 Cement Bone 12-24-2016 Radiopaque Simplex P Single Dose - [id number] Tube Sz8 Trach 08-26-2016 Cuffed - Brb760268 Tube 22fr Feeding 08-26-2016 Gastrostomy Junior - Drq356910 Screw 2.4 X 32mm Va 08-28-19 17 Lock Self-Tap Strdrv Rec - Smf598772 Screw 2.4 X 44mm Va 08-28-19 17 Lock Self-Tap Strdrv Rec - Flm407583 Screw 2.4 X 36mm 08-27-2016 Cortex Self-Tap T8 Strdrv Rec - [id number] Screw 2.4 X 38mm 08-27-2016 Cortex Self-Tap T8 Strdrv Rec - Ayi948239 Wire K .045 X 5.5in 08-28-19 17 W/Wire Guide - [id number] Plate 2.4mm 2.7mm 08-27-2016 Va-Lock Mesh 5 X 12hls - Eam663554 Wire 15 X 150mm 08-27-2016 Compression Thrd - [id number] 1.6mm Compression 08-27-2016 Wires 20mm Thread Length, 1500mm Total Length Screw 2.4 X 18mm Mor[place]a 017 Ang Lock Strdrv - [id number] Screw 2.4 X 20mm [place] 017 Ang Lock Strdrv - Vfj223089 Screw 2.4 X 22mm [place] 017 Ang Lock Strdrv - [id number] Hemostat 8 X 12.5cm 11-04-19 17 X 10mm Surgifoam Gelatin Sponge - Ycm6572633 Screw 2.5 X 4mm Ti 7 Schanz 14mm Thrd Body - Kul8438184 Hemostat 2 X 14in 12-03-2016 Surgicel - [id number] Hemostat 8 X 6.25cm 05-25-19 18 X 10mm Surgifoam Gelatin Sponge - [id number] Plate 14hl Fracture 05-12-19 19 - [id number] Screw 2 X 14mm Cross 019 Pin Locking - Mxj0261579 Screw 2 X 10mm Cross 019 Pin Locking - Lmo7907713 Screw 2 X 8mm Cross 05-12-19 19 Pin Locking - [id number] Screw 2 X 16mm Cross 019 Pin Locking - [id number] Bone Infuse Bone 11-03-2016 Graft Sm - [id number] Bone Infuse Bone 05-25-2017 Graft Xsm - Fcq2667990 Bone Infuse Bone 05-12-2018 Graft Sm - [id number] Cement Bone 12-24-2016 Radiopaque Simplex P Single Dose - Sqv6676443 Tube Sz8 Trach 08-26-2016 Cuffed - Eqx180169 Tube 22fr Feeding 08-26-2016 Gastrostomy Junior - Qvq628417 Screw 2.4 X 32mm Va 08-28-19 17 Lock Self-Tap Strdrv Rec - Qqj486411 Screw 2.4 X 44mm Va 08-28-19 17 Lock Self-Tap Strdrv Rec - Tec521301 Screw 2.4 X 36mm 08-27-2016 Cortex Self-Tap T8 Strdrv Rec - Qze255058 Screw 2.4 X 38mm 08-27-2016 Cortex Self-Tap T8 Strdrv Rec - [id number] Wire K .045 X 5.5in 08-28-19 17 W/Wire Guide - [id number] Plate 2.4mm 2.7mm 08-27-2016 Va-Lock Mesh 5 X 12hls - [id number] Wire 15 X 150mm 08-27-2016 Compression Thrd - [id number] 1.6mm Compression 08-27-2016 Wires 20mm Thread Length, 1500mm Total Length Screw 2.4 X 18mm [place] 017 Ang Lock Strdrv - Vih263856 Screw 2.4 X 20mm [place] 017 Ang Lock Strdrv - Sqx752312 Screw 2.4 X 22mm [place] 017 Ang Lock Strdrv - [id number] Hemostat 8 X 12.5cm 11-04-19 17 X 10mm Surgifoam Gelatin Sponge - Dhc0209473 Screw 2.5 X 4mm Ti 7 Schanz 14mm Thrd Body - [id number] Hemostat 2 X 14in 12-03-2016 Surgicel - [id number] Hemostat 8 X 6.25cm 05-25-19 18 X 10mm Surgifoam Gelatin Sponge - Nrj0306699 Screw 2.5 X 4mm Ti 9 Schanz 10mm Thrd Ramus - Dvm0015111 Screw 2.5 X 4mm Ti 9 Schanz 14mm Thrd Body - Wuq3786007 Plate 14hl Fracture 05-12-19 19 - [id number] Screw 2 X 14mm Cross 019 Pin Locking - [id number] Screw 2 X 10mm Cross 019 Pin Locking - [id number] Screw 2 X 8mm Cross 05-12-19 19 Pin Locking - Evm0919224 Screw 2 X 16mm Cross 019 Pin Locking - [id number] Bone Infuse Bone 11-03-2016 Graft Sm - [id number] Bone Infuse Bone 05-25-2017 Graft Xsm - [id number] Bone Infuse Bone 05-12-2018 Graft Sm - [id number] Cement Bone 12-24-2016 Radiopaque Simplex P Single Dose - Bvs0779540 Tube Sz8 Trach 08-26-2016 Cuffed - Bjl541242 Tube 22fr Feeding 08-26-2016 Gastrostomy Junior - Ewl653475 Screw 2.4 X 32mm Va 08-28-19 17 Lock Self-Tap Strdrv Rec - Qwi878723 Screw 2.4 X 44mm Va 08-28-19 17 Lock Self-Tap Strdrv Rec - [id number] Screw 2.4 X 36mm 08-27-2016 Cortex Self-Tap T8 Strdrv Rec - Myy840510 Screw 2.4 X 38mm 08-27-2016 Cortex Self-Tap T8 Strdrv Rec - Pgy898889 Wire K .045 X 5.5in 08-28-19 17 W/Wire Guide - [id number] Plate 2.4mm 2.7mm 08-27-2016 Va-Lock Mesh 5 X 12hls - [id number] Wire 15 X 150mm 08-27-2016 Compression Thrd - [id number] 1.6mm Compression 08-27-2016 Wires 20mm Thread Length, 1500mm Total Length Screw 2.4 X 18mm [place] 017 Ang Lock Strdrv - [id number] Screw 2.4 X 20mm [place] 017 Ang Lock Strdrv - [id number] Screw 2.4 X 22mm [place] 017 Ang Lock Strdrv - [id number] Hemostat 8 X 12.5cm 11-04-19 17 X 10mm Surgifoam Gelatin Sponge - [id number] Screw 2.5 X 4mm Ti 7 Schanz 14mm Thrd Body - [id number] Hemostat 2 X 14in 12-03-2016 Surgicel - [id number] Hemostat 8 X 6.25cm 05-25-19 18 X 10mm Surgifoam Gelatin Sponge - [id number] Screw 2.5 X 4mm Ti 9 Schanz 10mm Thrd Ramus - [id number] Screw 2.5 X 4mm Ti 9 Schanz 14mm Thrd Body - [id number] Bone Infuse Bone 11-03-2016 Graft Sm - [id number] Bone Infuse Bone 05-25-2017 Graft Xsm - [id number] Bone Infuse Bone 05-12-2018 Graft Sm - [id number] Cement Bone 12-24-2016 Radiopaque Simplex P Single Dose - [id number] Tube Sz8 Trach 08-26-2016 Cuffed - Fgk642073 Tube 22fr Feeding 08-26-2016 Gastrostomy Junior - [id number] Screw 2.4 X 32mm Va 08-28-19 17 Lock Self-Tap Strdrv Rec - [id number] Screw 2.4 X 44mm Va 08-28-19 17 Lock Self-Tap Strdrv Rec - [id number] Screw 2.4 X 36mm 08-27-2016 Cortex Self-Tap T8 Strdrv Rec - [id number] Screw 2.4 X 38mm 08-27-2016 Cortex Self-Tap T8 Strdrv Rec - Uma209424 Wire K .045 X 5.5in 08-28-19 17 W/Wire Guide - [id number] Plate 2.4mm 2.7mm 08-27-2016 Va-Lock Mesh 5 X 12hls - Wdh712655 Wire 15 X 150mm 08-27-2016 Compression Thrd - [id number] 1.6mm Compression 08-27-2016 Wires 20mm Thread Length, 1500mm Total Length Screw 2.4 X 18mm [place] 017 Ang Lock Strdrv - [id number] Screw 2.4 X 20mm [place] 017 Ang Lock Strdrv - [id number] Screw 2.4 X 22mm [place] 017 Ang Lock Strdrv - [id number] Hemostat 8 X 12.5cm 11-04-19 17 X 10mm Surgifoam Gelatin Sponge - [id number] Screw 2.5 X 4mm Ti 7 Schanz 14mm Thrd Body - Jnj3841705 Hemostat 2 X 14in 12-03-2016 Surgicel - [id number] Hemostat 8 X 6.25cm 05-25-19 18 X 10mm Surgifoam Gelatin Sponge - [id number] Screw 2.5 X 4mm Ti 9 Schanz 10mm Thrd Ramus - Iqk3247416 Screw 2.5 X 4mm Ti 9 Schanz 14mm Thrd Body - [id number] Bone Infuse Bone 11-03-2016 Graft Sm - [id number] Bone Infuse Bone 05-25-2017 Graft Xsm - [id number] Bone Infuse Bone 05-12-2018 Graft Sm - [id number] Cement Bone 12-24-2016 Radiopaque Simplex P Single Dose - [id number] Tube Sz8 Trach 08-26-2016 Cuffed - Ika922463 Tube 22fr Feeding 08-26-2016 Gastrostomy Junior - Mvt505976 Screw 2.4 X 32mm Va 08-28-19 17 Lock Self-Tap Strdrv Rec - [id number] Screw 2.4 X 44mm Va 08-28-19 17 Lock Self-Tap Strdrv Rec - Wyc019165 Screw 2.4 X 36mm 08-27-2016 Cortex Self-Tap T8 Strdrv Rec - [id number] Screw 2.4 X 38mm 08-27-2016 Cortex Self-Tap T8 Strdrv Rec - [id number] Wire K .045 X 5.5in 08-28-19 17 W/Wire Guide - [id number] Plate 2.4mm 2.7mm 08-27-2016 Va-Lock Mesh 5 X 12hls - [id number] Wire 15 X 150mm 08-27-2016 Compression Thrd - [id number] 1.6mm Compression 08-27-2016 Wires 20mm Thread Length, 1500mm Total Length Screw 2.4 X 18mm [place] 017 Ang Lock Strdrv - Rke981301 Screw 2.4 X 20mm [place] 017 Ang Lock Strdrv - Jjj779358 Screw 2.4 X 22mm [place] 017 Ang Lock Strdrv - [id number] Hemostat 8 X 12.5cm 11-04-19 17 X 10mm Surgifoam Gelatin Sponge - [id number] Screw 2.5 X 4mm Ti 7 Schanz 14mm Thrd Body - Kxz8757575 Hemostat 2 X 14in 12-03-2016 Surgicel - Tzl9155039 Hemostat 8 X 6.25cm 05-25-19 18 X 10mm Surgifoam Gelatin Sponge - [id number] Screw 2.5 X 4mm Ti 9 Schanz 10mm Thrd Ramus - Yyd6854826 Screw 2.5 X 4mm Ti 9 Schanz 14mm Thrd Body - [id number] Bone Infuse Bone 11-03-2016 Graft Sm - [id number] Bone Infuse Bone 05-25-2017 Graft Xsm - [id number] Bone Infuse Bone 05-12-2018 Graft Sm - [id number] Cement Bone 12-24-2016 Radiopaque Simplex P Single Dose - [id number] Tube Sz8 Trach 08-26-2016 Cuffed - Scl415374 Tube 22fr Feeding 08-26-2016 Gastrostomy Junior - Ozf142762 Screw 2.4 X 32mm Va 08-28-19 17 Lock Self-Tap Strdrv Rec - [id number] Screw 2.4 X 44mm Va 08-28-19 17 Lock Self-Tap Strdrv Rec - Fez889110 Screw 2.4 X 36mm 08-27-2016 Cortex Self-Tap T8 Strdrv Rec - Hva537394 Screw 2.4 X 38mm 08-27-2016 Cortex Self-Tap T8 Strdrv Rec - [id number] Wire K .045 X 5.5in 08-28-19 17 W/Wire Guide - [id number] Plate 2.4mm 2.7mm 08-27-2016 Va-Lock Mesh 5 X 12hls - Glc336067 Wire 15 X 150mm 08-27-2016 Compression Thrd - [id number] 1.6mm Compression 08-27-2016 Wires 20mm Thread Length, 1500mm Total Length Screw 2.4 X 18mm [place] 017 Ang Lock Strdrv - [id number] Screw 2.4 X 20mm [place] 017 Ang Lock Strdrv - Kga600394 Screw 2.4 X 22mm [place] 017 Ang Lock Strdrv - [id number] Hemostat 8 X 12.5cm 11-04-19 17 X 10mm Surgifoam Gelatin Sponge - Vej8576999 Screw 2.5 X 4mm Ti 7 Schanz 14mm Thrd Body - [id number] Hemostat 2 X 14in 12-03-2016 Surgicel - [id number] Hemostat 8 X 6.25cm 05-25-19 18 X 10mm Surgifoam Gelatin Sponge - [id number] Screw 2.5 X 4mm Ti 9 Schanz 10mm Thrd Ramus - [id number] Screw 2.5 X 4mm Ti 9 Schanz 14mm Thrd Body - [id number] Bone Infuse Bone 11-03-2016 Graft Sm - [id number] Tube Sz8 Trach 08-26-2016 Cuffed - [id number] Tube 22fr Feeding 08-26-2016 Gastrostomy Junior - [id number] Screw 2.4 X 32mm Va 08-28-19 17 Lock Self-Tap Strdrv Rec - [id number] Screw 2.4 X 44mm Va 08-28-19 17 Lock Self-Tap Strdrv Rec - [id number] Screw 2.4 X 36mm 08-27-2016 Cortex Self-Tap T8 Strdrv Rec - [id number] Screw 2.4 X 38mm 08-27-2016 Cortex Self-Tap T8 Strdrv Rec - [id number] Wire K .045 X 5.5in 08-28-19 17 W/Wire Guide - [id number] Plate 2.4mm 2.7mm 08-27-2016 Va-Lock Mesh 5 X 12hls - [id number] Wire 15 X 150mm 08-27-2016 Compression Thrd - [id number] 1.6mm Compression 08-27-2016 Wires 20mm Thread Length, 1500mm Total Length Screw 2.4 X 18mm [place] 017 Ang Lock Strdrv - [id number] Screw 2.4 X 20mm [place] 017 Ang Lock Strdrv - [id number] Screw 2.4 X 22mm [place] 017 Ang Lock Strdrv - [id number] Hemostat 8 X 12.5cm 11-04-19 17 X 10mm Surgifoam Gelatin Sponge - [id number] Screw 2.5 X 4mm Ti 7 Schanz 14mm Thrd Body - [id number] Hemostat 2 X 14in 12-03-2016 Surgicel - [id number] Bone Infuse Bone 11-03-2016 Graft Sm - [id number] Tube Sz8 Trach 08-26-2016 Cuffed - [id number] Tube 22fr Feeding 08-26-2016 Gastrostomy Junior - [id number] Screw 2.4 X 32mm Va 08-28-19 17 Lock Self-Tap Strdrv Rec - [id number] Screw 2.4 X 44mm Va 08-28-19 17 Lock Self-Tap Strdrv Rec - [id number] Screw 2.4 X 36mm 08-27-2016 Cortex Self-Tap T8 Strdrv Rec - [id number] Screw 2.4 X 38mm 08-27-2016 Cortex Self-Tap T8 Strdrv Rec - [id number] Wire K .045 X 5.5in 08-28-19 17 W/Wire Guide - [id number] Plate 2.4mm 2.7mm 08-27-2016 Va-Lock Mesh 5 X 12hls - [id number] Wire 15 X 150mm 08-27-2016 Compression Thrd - [id number] 1.6mm Compression 08-27-2016 Wires 20mm Thread Length, 1500mm Total Length Screw 2.4 X 18mm Mor[place] 017 Ang Lock Strdrv - [id number] Screw 2.4 X 20mm [place] 017 Ang Lock Strdrv - [id number] Screw 2.4 X 22mm [place] 017 Ang Lock Strdrv - [id number] Hemostat 8 X 12.5cm 11-04-19 17 X 10mm Surgifoam Gelatin Sponge - [id number] Screw 2.5 X 4mm Ti 7 Schanz 14mm Thrd Body - [id number] Hemostat 2 X 14in 12-03-2016 Surgicel - [id number] Bone Infuse Bone 463911_[facility] 11-03-2016 Graft Sm - [id number] Bone Infuse Bone 573918_[facility] 05-25-2017 Graft Xsm - [id number] Bone Infuse Bone 765182_[facility] 05-12-2018 Graft Sm - [id number] Cement Bone 491380_[facility] 12-24-2016 Radiopaque Simplex P Single Dose - [id number] Tube Sz8 Trach 428782_[facility] 08-26-2016 Cuffed - [id number] Tube 22fr Feeding 428815_[facility] 08-26-2016 Gastrostomy Junior - [id number] Screw 2.4 X 32mm Va 429110_[facility] 08-28-19 17 Lock Self-Tap Strdrv Rec - [id number] Screw 2.4 X 44mm Va 429111_[facility] 08-28-19 17 Lock Self-Tap Strdrv Rec - [id number] Screw 2.4 X 36mm 429112_[facility] 08-27-2016 Cortex Self-Tap T8 Strdrv Rec - [id number] Screw 2.4 X 38mm 429114_[facility] 08-27-2016 Cortex Self-Tap T8 Strdrv Rec - [id number] Wire K .045 X 5.5in 429036_[facility] 08-28-19 17 W/Wire Guide - [id number] Plate 2.4mm 2.7mm 429101_[facility] 08-27-2016 Va-Lock Mesh 5 X 12hls - [id number] Wire 15 X 150mm 429103_[facility] 08-27-2016 Compression Thrd - [id number] 1.6mm Compression 429104_[facility] 08-27-2016 Wires 20mm Thread Length, 1500mm Total Length Screw 2.4 X 18mm Mor[place]a 429107_[facility] 017 Ang Lock Strdrv - [id number] Screw 2.4 X 20mm [place]a 429108_[facility] 017 Ang Lock Strdrv - [id number] Screw 2.4 X 22mm [place]a 429109_[facility] 017 Ang Lock Strdrv - [id number] Hemostat 8 X 12.5cm 463943_[facility] 11-04-19 17 X 10mm Surgifoam Gelatin Sponge - [id number] Screw 2.5 X 4mm Ti 473967_[facility] 7 Schanz 14mm Thrd Body - [id number] Hemostat 2 X 14in 479593_[facility] 12-03-2016 Surgicel - [id number] Hemostat 8 X 6.25cm 573917_[facility] 05-25-19 18 X 10mm Surgifoam Gelatin Sponge - [id number] Screw 2.5 X 4mm Ti 771792_[facility] 9 Schanz 10mm Thrd Ramus - [id number] Screw 2.5 X 4mm Ti 771793_[facility] 9 Schanz 14mm Thrd Body - [id number] Hospital Course Kellie Vega [facility] - 03/14/2017 9:37 AM ESTFormatting of this note may be different from the original. DISCHARGE SUMMARY Patient: Honorio Prince Account: [id number] Admitted: 03/11/2017 Discharge Date/Time: No discharge date [...] Provider: Sasha Fields MD, , Address: [address] [place] [address] / [place] [id number] Follow Up: Mony Enriquez MD [address] [facility] [address] [address] Schedule an appointment as soon as possible [...] chart reviewed. I agree with the resident/ GRIZZLY WORKER's evaluation and plan.in this encounterKellie Vega CNP - 12/28/2016 10:22 AM EDTFormatting of this note may be different from the original. DISCHARGE SUMMARY Patient: Honorio Prince Account: [id number] Admitted: 12/21/2016 Discharge Date/Time: No discharge date [...] Hospital Follow Up: Mony Enriquez MD [address] [address] Schedule an appointment as soon as possible for a visit in 1 week(s) Sridhar Lainez MD [address] [address] Additional Information Patient instructions, including activity, were [...] original. DISCHARGE SUMMARY Patient: Honorio Prince Account: [id number] Admitted: 05/25/2017 Discharge Date/Time: No discharge date [...] Provider: Sasha Fields MD, , Address: [address] [place] [address] / [place] [address] Follow Up: Sridhar Lainez MD [address] [facility] [address] Schedule an appointment as soon as possible for a visit in 6 week(s) Mony Enriquez MD [address] [facility] 600 [facility] [address] Schedule an appointment as soon [...] EST DISCHARGE SUMMARY Patient: Honorio Prince Account: [id number] Admitted: 05/12/2018 Discharge Date/Time: No discharge date [...] Provider: Sasha Fields MD, , Address: [address] [place] [address] / [place] [address] Follow Up: Mony Enriquez MD [address] [place] [address] Schedule an appointment as soon as possible [...] different from the original. Home Health Care: [facility] at Continue current services. ? Infusion [...] KacieAra hall, DEE - 12/22/2016 12:[facility] at Continue current services. Infusion Services: [facility] Weekly CBC with diff, creatinine, vanco trough, ESR, CRP to Dr. Lainez at [phone]. Apply for Victims Compensation If you or your family members are innocent victims of a violent crime, financial assistance may be available. The following is a list of guidelines to help you determine whether you might be eligible for a payment. For specific questions, call the Conservation Specialist?s Office at [phone]. Applications and supplemental applications can be mailed to: [address] [place] [address], [address] [place] [address] Apply online: [email or web address].[email or web address] [place].gov/ Crime Victims Compensation Guidelines Effective July 30, [...] a child endangering or domestic violence conviction, anbgke39 years prior to the crime or while [...] for stolen, damaged, or lost property. The Conservation Specialist?s Office will not pay victims for expenses [...] canes, walkers, wheelchairs, and other mobility equipment. Parts Consultant fees for civil protection orders' hourly rate for legal work went up from $60.00 per hour to $100.00. The maximum amount for employment law attorney fees per claim was changed to $1,000.00. Reasonable travel time to attend hearings is limited to 3 hours round trip for each hearing at $30.00 per hour. The cap on individual attorneys or law firms was eliminated. A supplemental application may be filed within six years of the last decision of the Conservation Specialist, an [place] Court of Claims panel commissioners, or a Court of Claims voip network engineer.Ashleigh Hurd, SRINI - 12/28/2016Formatting of this note [...] drive, operate heavy machinery, ride motorcycles or ATChippmunk's, drink alcohol, or take other medications that [...] have a primary care physician please call [facility] Physician Referral Line [phone] for assistance. in this encounterDischarge Instr - Care Coordination - Piedad Phillips RN - 05/30/2017 1:46 PM ESTWeekly CBC with diff, creatinine, vanco trough, ESR, CRP to Dr. Lainez at [phone]. [facility] P:[phone] F:[phone] Vega CNP - 05/31/2017Wound Care: Change dressing [...] through Care Everywhere.NAUSEA AND VOMITING: AFTER SURGERY (IVORIAN)POST-OP INFECTION (IVORIAN)SEDATION (IVORIAN) SURGERY: POST-OP BLEEDING (IVORIAN)PICC (PERIPHERALLY INSERTED CENTRAL CATHETER) (IVORIAN)in this encounterDischarge Instr - Care Coordination - Fransisco, Dimas García RN - 12/07/2016 10:51 AM EDTWeekly CBC with diff, creatinine, vanco trough, ESR, CRP to Dr. Lainez at [phone]. [facility] Health Nurses , fax [phone] Pt. Is staying with his mother Corinna [address] [place] [address] YntjdjKellie Vega CNP - 12/07/2016Wound Care: Change dressing [...] LFT, ESR, CRP to Dr. Lainez at [phone]. [facility] Health nurses Pt is going to stay w mother Corinna Prince [phone] [facility] [address]HkckiSavage Orozco DO - 11/25/2016Surgical Drain Care: Care [...] Log into your personal health record on https://[facility].Gigzolo and enter K117 in the Education box to learn more about Surgical Drain Care: Care Instructions. Current as of: September 19, 2015 Content Version: 11.2 ? 2333-3576 EvoApp. Care instructions adapted under license by your healthcare professional. If you have questions about a medical condition or this instruction, always ask your healthcare professional. EvoApp disclaims any warranty or liability for your use of this information. The following attachments cannot be sent through Care Everywhere.PICC (PERIPHERALLY INSERTED CENTRAL CATHETER) (IVORIAN)in this encounterDischarge Instr - Other OrdersRoxanne Chapin [...] seen in clinic in this encounterInsKim Ruiz, ENROBER - 05/26/2018 INJURIES: 1. Left?facial abscess 2. 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 If not, please contact the office at your earliest convenience to schedule your follow up appointment. Bring your medications and pill bottles with you to your first visit. Outpatient Trauma and Acute Care Surgery Office: [address] [facility] 7th Floor, [address] [place] [address] Hours: Tuesday-Tuesday, 8am to 4pm. If you need to speak with the trauma/surgery team after hours, please call and ask to speak with the Trauma Nurse Practitioner consultant electronics. Parking: You may park in the Green Garage, which is attached to the front of the hospital. From within the garage, take the C elevators up to the 7th Floor. The office is in [address]. Desk Sergeant: If you choose electronic gluer parking, please do so at the Main Hospital entrance. Go up to the second floor. Follow signs for the Bone and Joint Building. Senior Living across the bridge, take the elevators toyour right up to the 7th floor. You may also enter from the [facility] entrance, located at the corner of [facility]. You may also enter from the [facility] entrance, located at the corner of [facility]. Take the D elevators up to the 7th Floor. Use this entrance if you are arriving by ambulance or wheelchair van. Garage or Desk Sergeant parking is free with a voucher, which you will receive at your appointment. PRIMARY CARE PHYSICIAN FOLLOW UPCall and schedule a post Trauma follow up appointment with your primary care provider. If you need assistance with obtaining a primary care physician please call: [phone] YOUR [facility] AT HOMEPain is [...] taking a prescription pain medicine, take an xmlc-yqn-mpsittw medicine as directed such as Tylenol (Acetaminophen) [...] your doctor if you can take an gtru-slq-rdulhbl medicine. ? Keep your bandage clean and [...] Log into your personal health record on [email or web address]://KIHEITAIhart.Gigzolo and enter D633 in the Education box to learn more about Skin Abscess: Care Instructions. Current as of: August 09, 2017 Content Version: 11.9 ? 8491-9933 EvoApp. Care instructions adapted under license by your healthcare professional. If you have questions about a medical condition or this instruction, always ask your healthcare professional. EvoApp disclaims any warranty or liability for your use of this information. AttachmentsThe following attachments cannot be sent through Care Everywhere. Osteomyelitis (British)in this encounter Assessments Diagnosis Preoperative evaluation to [...] type Anemia, unspecified type Schizophrenia, unspecified type ([facility]) Deep vein thrombosis (DVT) prophylaxis p [...] Documents on File Type Date Recorded Patient Embedded Software Test Engineer Explanati on Advance Directives and Living 02/03/2017 10:32 AM pt declined Will Advance Directives and Living 11/27/2018 8:36 AM Will Advance Directives and Living 02/23/2018 11:36 AM Will Advance Directives and Living 06/05/2018 6:12 PM Will Documents on File Type Date Recorded Patient Embedded Software Test Engineer Explanati on Advance Directives and Living 02/03/2017 [...] 3D MD Ovi [address] [facility] [address] [place], [place] [address] Phone: Status Reason Specialty Diagnoses / Referred By Referred To Procedures Contact Contact Authorized Specialty Orthopedic Diagnoses 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, unspecified laterality, subsequent encounter Mony Enriquez [facility] Services Surgery MD Ovi State Required/Patien [address] [facility] [address] Interest [facility] [address] [phone] Phone: Fax: Status Reason Specialty Diagnoses / Referred By Referred To Procedures Contact Contact Closed Specialty Orthopedic Diagnoses 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, unspecified laterality, subsequent encounter Mony Enriquez [facility] Services Surgery MD Ovi [facility] Required/Patien [address] [facility] [address] [place] [phone] Phone: Fax: Status Reason Specialty Diagnoses / Procedures Referred By C ontact Referred To Contact Closed Diagnoses Broken jaw, with nonunion, subsequent encounter Mony Enriquez MD [address] [facility] [address] [place], [place] [address] Phone: Status Reason Specialty Diagnoses / Referred By Referred To Procedures Contact Contact Pending Specialty Radiology Diagnoses 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 [address] [place] [address] Phone: [phone] Phone: History of Present Illness Mony Enriquez MD - 02/23/2018 12:17 PM EDTFormatting of this note may be different from the original. Patient Name: Dewayne Prince MR #: ?[id number] Acct #: ?[id number] : ?1980 ? Referring Physician: ?No ref. [...] INTERNAL FIXATION PATELLA WITH I &?D; ?Surgeon: nAuj Lugo MD; ?Location: [facility] [...] Prior to Surgery MAHAD: ? Printed on:11/01/17 0971 Medication Information Take last dose on Take [...] original. Patient Name: ?Honorio Prince MR #: ?[id number] Acct #: ?[id number] : ?1980 ? Referring Physician: ?No ref. [...] be adequate intramedullary canal diameter for reamer ethnographer aspirator harvesting of bone graft. There is [...] from the left femur using the reamer ethnographer aspirator system. Plan: I went over risk [...] Date: 05/13/18 Barriers to Discharge: No barriers [facility] Disposition D/C Disposition: Home Agency/Destination: Home Home Care Needs : None HME: None Same As Recommended : yes Transportation Type: Cab Transportation Company/Agency Name: Other (Comment)([facility]) Anticipated Discharge Plan Anticipated HME: Undetermined Anticipated Home Care Needs: Undetermined CM spoke with pt, verified demographics and discharge location. Pt will be discharging to his mother's house at [address] [place] [address]. Pt has paper scripts for discharge and his mothercan walk to the pharmacy to pick them up. CM called [facility] for transportation home, provided discharge address and cell number for contact at crop picker. Will continue to follow until discharged. [...] left femur bone graft harvesting from reamer ethnographer aspirator system Plan: - Labs reviewed - [...] Income Source: Unemployed Resources Financial Resources: Other (Comment)([facility] Medicaid payer with rx coverage confirmed) Community Resources: Other (Comment)(PCP: Sasha Fields MD # [phone]) Discharge Plan Shared UM/CC and RN Source of Information: Patient Contact Phone Number: (Nancy Prince #[phone]) Living Arrangements: Parent Support Systems: Parent Functional [...] NOTE Patient Name: Honorio Prince MR #: [id number] Assessment and Plan: 1. Postop abscess of [...] 650 mg 650 mg Tube Q6H Kamla eHrrera DO 650 mg at 05/27/18 0755 ? albuterol inhaler 2 puff 2 puff Inhalation Q6H PRN Pyeton Amador PA-C ? amoxicillin-clavulanate (AUGMENTIN) 875-125 mg per tablet 1 tablet 1 tablet Oral Q12H [facility] Sridhar Lainez MD 1 tablet at 05/27/18 0801 ? enoxaparin (LOVENOX) syringe 30 mg 30 mg Subcutaneous BID Peyton Amador PA-C 30 mg at 05/27/18 0757 ? famotidine (PEPCID) tablet 40 mg 40 mg Oral Nightly Carroll Noyola [facility],PharmD 40 mg at 05/26/182208 ? FLUoxetine (PROZAC) [...] flow sheets, Bedside Study Evaluation flow sheets, [facility] Navigator, as well as patient Plan of [...] Estimated Energy Needs Total Energy Estimated Needs: 1906-8388 Method for Estimating Needs: MSJ x 1-1.2 Total Protein Estimated Needs: 109g Method for Estimating Needs: 1.5g/kg/ibw AISSATOU Walker RD, [facility] Beverley Jorgensen RN - 05/26/2018 10:33 AM [...] rounds, pt not medically ready for discharge. [facility] following for discharge needs. Kellie Grijalva CNP - 05/26/2018 8:57 AM EST PLASTIC SURGERY PROGRESS NOTE A: Honorio Prince is a 37yo male s/p repeat I&D of left mandible and external fixator applicationon 05/23/18. P: - Strip and record FLOYD - Edema to left jaw stable, neck enlargement is tissue flap - Bacitracin BID to let mandibular incision, SCOWMAN - Will have PT eval. Left leg [...] Vega CNP Plastic Reconstructive Surgery Service Pager (5s-1c): Brittney Bhatti PA-C - 05/26/2018 6:06 AM EST [place] [facility]UTE [facility] SURGERY TRAUMA PROGRESS [...] Mandibular Abscess: PRS following, s/p surgeries as tiwyd-ba-frv in place. Anaerobic cx from 05/22no growth; [...] and time: 05/21/2018 5:41 PM Med rec: [id number] Date of service: 05/26/18 Please link this note as an addendum to the Trauma Advanced Practice Provider note with the day of service listed above. The patient was seen and examined by me, the attending trauma surgeon, on multidisciplinary rounds on the date of service listed above. I have reviewed the Advanced Practice Provider note with the relevant labs, studies, and oracle webcenter consultant notes. I have reviewed and agree with the documented history, exam, and plan of care. I have made necessary additions or changes to the note to reflect my direct input. Agree with the assessment and plan as described below. Arnel Cortez II, MD, MS, [facility] Trauma, Critical Care, & Acute Care Surgery [...] of 1.39 mg/dL (H)). Pharmacist: Eve Rock RPh,PharmD,[facility] Contact Number: Vocera 4East Pharmacist Karen Mchugh PA-C - 05/25/2018 7:37 AM EST [place] [facility] SURGERY TRAUMA ICU [...] fluids with diet. NUTRITION - DIET: NPO FOREIGN AGENT eval pending GASTROINTESTINAL - Last Bowel Movement - ADMINISTRATIVE OPERATIONS COORDINATOR. Senna on. HEMATOLOGY - hgb 7.4 (8.6). [...] LOS: 3. extuabted 05/24. No issues. Awaiting FOREIGN AGENT eval to start diet. Pain adequately controlled. [...] Strength, sensation, proprioception normal. No cerebellar signs. [place] Coma Scale: EYES (4-spont, 3-to verb stim, [...] note with the relevant labs, studies, and oracle webcenter consultant notes. 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 Physical Appearance: No s/s malnutrition noted [...] Estimated Energy Needs Total Energy Estimated Needs: 1470-3705 Method for Estimating Needs: MSJ x 1-1.2 Total Protein Estimated Needs: 109g Method for Estimating Needs: 1.5g/kg/ibw Anay Shoemaker RD, LD, [facility] [phone] Lbdycgvrwzeabs Signed by Anay Shoemaker RD on 05/24/2018 2:58 PM EST Leann Zhang - 05/24/2018 12:02 PM EST 05/24/18 1000 Clinical Encounter Type Visit Type Non Crisis Non Crisis Visit Rounding Visited With Patient Visit Length (minutes) 1-15 Holiness Encounters Holiness Needs Prayer Patient lying in bed watching TV. No visitors present. Welcomes corporate general manager but declines spiritual needs at this time. Prayer and pastoral support offered. PC will follow as requested. Kellie Montgomery CNP - 05/24/2018 8:56 AM EST PLASTIC SURGERY PROGRESS NOTE A: Honorio Prince is a 37yo male s/p repeat I&D of left mandible and external fixator applicationon 05/23/18. P: - Ok to extubate per trauma team - Bacitracin BID to let mandibular incision, SCOWMAN - F/u cultures, growing GPC and GPB. [...] fluctuant, ex fix intact. Closure intact. Kellie eVga CNP Plastic Reconstructive Surgery Service Pager (6a-6p): [...] NEURO: . Strength, sensation, proprioception normal. No [place] Coma Scale: EYES (4-spont, 3-to verb stim, [...] clean, dry, and intact and well approximated. [place] were removed at the bedside. Island dressing [...] Dupree MD - 05/23/2018 7:49 AM EST [place] [facility]UTE CARE SURGERY TRAUMA ICU [...] Strength, sensation, proprioception normal. No cerebellar signs. [place] Coma Scale: EYES (4-spont, 3-to verb stim, [...] a hereditary bleeding disorder, nor is a Scientologist. No further work-up or consultation is necessary Arnel Saha MD EM/IM Resident Associated attestation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
== END 2019-10-06 12:44 | disposition home or self-care (01) ==
LOC: ED 13:49 → MS3 10-05 06:47 → SDC 10-05 07:56 → MS3 10-05 07:57 → SDC 10-05 08:01 → MS3 10-05 08:01
PROVIDERS: Admitting Provider Surgery; Emergency Provider Emergency Medicine; PCP Family Medicine; Visit Provider Surgery
PROC: (CPT 47562; principal; 2019-10-04 13:40)
DX: K80.12 Calculus of gallbladder with acute and chronic cholecystitis without obstruction (principal); Z87.891 Personal history of nicotine dependence; Z79.899 Other long term (current) drug therapy; K21.9 Gastro-esophageal reflux disease without esophagitis; F41.9 Anxiety disorder, unspecified; F32.9 Major depressive disorder, single episode, unspecified; J45.909 Unspecified asthma, uncomplicated
CPT/HCPCS: 00790; 47562; 36415; 74176; 76705; 80053; 81001; 83690; 85025; 86850; 86900; 86901; 88304; 93005; 96361; 96365; 96366; 96375; 96376; 99218; 99251; 99284; J7030; J7050; A4216; G0378; G0463; J2405

== ENCOUNTER 2020-04-05 21:05 | Emergency (ER) | payer MEDICARE, SELFPAY ==
[2019-10-04 17:35] VITALS: BMI 28.3
[2020-04-05 21:06] VITALS: RESP 18; TEMP 36.1; BMI 24.3
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
[2020-04-05] MEDS: Ziprasidone IM 20 MG/ML VIAL IM (21:16)
[2020-04-05] MEDS: DiphenhydrAMINE 50 MG/ML Syringe IM (21:16)
--- NOTE | 2020-04-05 21:22 | ED.RN ---
called crisis at the request of dr stoen to attempt to get information about this pt.
[2020-04-05 21:47] VITALS: PULSE 100; RESP 19; O2SAT 97
[2020-04-05 21:57] LABS: Absolute Lymphocyte Count 1.81 X10^3/uL (0.83-4.51); Absolute Neutrophil Count 2.7 X10^3/uL (2.0-7.7); Basophil# 0.06 X10^3/uL; Basophil% 1.1 % (0-1); Eosinophil# 0.18 X10^3/uL; Eosinophils% 3.3 % (0-5); Lymphocyte # 1.81 X10^3/ul (4.0); Lymphocyte % 33.6 % (19-41); Mean Corp Hgb Conc 32.5 g/dL (32-36); Mean Corpuscular Hgb 28.4 pg (27.0-32.0); Mean Corpuscular Volume 87.5 fL (80-94); Mean Platelet Vol. 10.7 fl (6.2-12.0); Monocyte% 11.1 % (0-10); NRBC Flagged by Analyzer 0 % (0-5); Neutrophil # 2.73 X10^3/uL (2.7-7.7); Neutrophil % 50.7 % (47-70); Platelet Count 333 K/mm3 (150-450); RBC Distribution Width CV 15.3 % (11.6-14.6); RBC Distribution Width SD 49.1 fl (35.1-43.9); Red Blood Count 4.57 M/mm3 (4.6-6.2); White Blood Count 5.4 K/mm3 (4.4-11.0)
--- NOTE | 2020-04-05 22:00 | ED.RN ---
THIS RN TURNED IN TWO SMALL BAGGIES OF AN UNKNOWN SUBSTANCE FOUND IN PTS RIGHT SHOE AND CIGARETTE BOX TO [employer] FOR DISPOSAL.
[2020-04-05 22:16] LABS: Anion Gap 5 (5-15); BUN 17 mg/dL (7-18); BUN/Creat Ratio 17.3 RATIO (10-20); Chloride 110 mmol/L (98-107); Creatinine, Serum 0.98 mg/dL (0.70-1.30); EST Glomerular Filtration Rate 89 mL/min (>60); Est Glom Filt Rate - Afr Amer 108 mL/min (>60); Estimated Creatinine Clearance 102.42 ml/min; Glucose 108 mg/dL (74-106); Potassium 3.4 mmol/L (3.5-5.1); Sodium Level 140 mmol/L (136-145)
[2020-04-05 22:18] LABS: Alcohol, Blood (Medical)-Serum < 3.0 mg/dL
[2020-04-05 22:25] LABS: Valproic Acid (Depakene) Level < 3 ug/mL (50-100)
[2020-04-05 23:12] VITALS: PULSE 82; RESP 16
[2020-04-06 02:48] VITALS: PULSE 69; RESP 12; O2SAT 97
--- NOTE | 2020-04-06 02:49 | ED.RN ---
PT WOULD LIKE MOM UPDATED WHEN CRISIS CALLS HER PHONE NUMBER IS [phone]
--- NOTE | 2020-04-06 02:51 | ED.RN ---
UNABLE TO OBTAIN URINE, WAS CATHED BY PREVIOUS RN CATH UNSUCCESSFUL, AWARE, WILL WAIT FOR PT TO WAKE UP MORE AND DRINK SOME WATER TO OBTAIN URINE. PT RESTING IN A POSITION OF COMFORT NO FURTHER NEEDS AT THIS TIME.
[2020-04-06 04:00] VITALS: RESP 16
[2020-04-06 06:00] VITALS: BP 118/87; PULSE 94; RESP 23; O2SAT 100
[2020-04-06 07:58] LABS: Amphetamine Urine VISTA POSITIVE (<1000 ng/mL); Barbiturate Urine VISTA NEGATIVE (< 200 ng/mL); Benzodiazepine Urine VISTA NEGATIVE (< 200 ng/mL); Cocaine Urine VISTA NEGATIVE (< 300 ng/mL); Ecstacy Urine VISTA POSITIVE (< 500 ng/mL); Methadone Urine VISTA NEGATIVE (< 300 ng/mL); PCP Urine VISTA NEGATIVE (< 25 ng/mL); THC Urine VISTA NEGATIVE (< 50 ng/mL); Vista UDS pH Range 5
[2020-04-06 09:49] VITALS: BP 121/89; PULSE 77; RESP 15
[2020-04-06 12:51] VITALS: BP 119/74; PULSE 62; RESP 16; O2SAT 99
[2020-04-06 12:56] VITALS: BP 135/99; PULSE 108; RESP 18; TEMP 35.9; O2SAT 100
--- NOTE | 2020-04-06 13:47 | ED.RN ---
pt reluctant to go at discharge but was able to walk to cot on his own.
--- NOTE | 2020-04-06 14:01 | ED.RN ---
called dad to inform of transfer. stated he will notify mom.
== END 2020-04-06 13:48 ==
PROVIDERS: Emergency Provider Emergency Medicine; PCP Family Medicine
DX: F20.9 Schizophrenia, unspecified (principal); Z91.14 Patient's other noncompliance with medication regimen; F32.9 Major depressive disorder, single episode, unspecified; F43.10 Post-traumatic stress disorder, unspecified; Z79.899 Other long term (current) drug therapy; Z87.891 Personal history of nicotine dependence
CPT/HCPCS: 80048; 80164; 80307; 80320; 85025; 87426; 96372; 99285; G0480; J3486

== ENCOUNTER 2020-04-15 04:53 | Emergency (ER) | payer MEDICARE, SELFPAY ==
[2020-04-15 04:55] VITALS: BP 144/93; PULSE 118; RESP 17; TEMP 36.8; O2SAT 98; BMI 31.3
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
--- NOTE | 2020-04-15 05:20 | ED.RN ---
THIS NURSE ATTEMPTED TO CALL YOANDY THE PT MOM AT [phone] PER PT REQUEST, NO ANSWER A MESSAGE WAAS LEFT WITH A RETURN PHONE NUMBER WITH THE ER PHONE NUMBER.
[2020-04-15 05:29] VITALS: RESP 16
== END 2020-04-15 05:30 | disposition home or self-care (01) ==
LOC: ED 05:19
PROVIDERS: Emergency Provider Emergency Medicine; PCP Family Medicine
DX: F20.0 Paranoid schizophrenia (principal); F15.10 Other stimulant abuse, uncomplicated; F32.9 Major depressive disorder, single episode, unspecified; F43.10 Post-traumatic stress disorder, unspecified; Z79.899 Other long term (current) drug therapy; F17.200 Nicotine dependence, unspecified, uncomplicated
CPT/HCPCS: 99284

== ENCOUNTER 2020-05-05 11:30 | Emergency (ER) | payer MEDICARE, SELFPAY ==
[2020-05-05 11:32] VITALS: BP 149/104; PULSE 105; RESP 20; TEMP 36.6; O2SAT 99; BMI 23.3
--- NOTE | 2020-05-05 11:44 | EKG12_ITS ---
Test Reason : OTHER MI Blood Pressure : / mmHG Vent. Rate : 098 BPM Atrial Rate : 098 BPM P-R Int : 156 ms QRS Dur : 082 ms QT Int : 352 ms P-R-T Axes : 067 031 054 degrees QTc Int : 449 ms Normal sinus rhythm Normal ECG Confirmed by ERIN RAPHAEL, ARNEL ([id number]), marketing editor ERIC MOREIRA ([id number]) on 05/07/2020 8:13:06 AM Referred By: OSWALDO Confirmed By:ARNEL KHAN MD
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
[2020-05-05 12:10] LABS: Mucous, Urine 0 SEEN /hpf (<or=2+); Red Blood Cells-Urine 0 SEEN /hpf (0-5); Squamous Epithelial Cells - UA 0 SEEN /hpf (0-5)
[2020-05-05 12:12] LABS: Absolute Lymphocyte Count 1.73 X10^3/uL (0.83-4.51); Basophil# 0.06 X10^3/uL; Basophil% 1.1 % (0-1); Eosinophils% 5.3 % (0-5); Hematocrit 41.3 % (40-54); Hemoglobin 13.3 g/dL (13.0-16.5); Lymphocyte # 1.73 X10^3/ul (4.0); Lymphocyte % 30.8 % (19-41); Mean Corp Hgb Conc 32.2 g/dL (32-36); Mean Corpuscular Hgb 28.2 pg (27.0-32.0); Mean Corpuscular Volume 87.7 fL (80-94); Mean Platelet Vol. 9.6 fl (6.2-12.0); Monocyte# 0.55 X10^3/uL; Monocyte% 9.8 % (0-10); NRBC Flagged by Analyzer 0 % (0-5); Neutrophil # 2.96 X10^3/uL (2.7-7.7); Neutrophil % 52.6 % (47-70); Platelet Count 448 K/mm3 (150-450); RBC Distribution Width CV 14.6 % (11.6-14.6); Red Blood Count 4.71 M/mm3 (4.6-6.2); White Blood Count 5.6 K/mm3 (4.4-11.0)
[2020-05-05 12:14] LABS: Color, Urine Yellow (Yellow); Glucose, Dipstick Normal (Normal); Ketone-Dipstick 5 mg/dl (Negative); Leukocyte Esterase-Dipstick 500 /ul (Negative); Nitrite-Dipstick Positive (Negative); Occult Blood-Urine 10 /ul (Negative); Protein-Dipstick 30 mg/dl (Negative); Specific Gravity, Urine 1.015 (1.002-1.030); Urine Bilirubin Dipstick Negative (Negative); Urine Clarity Sl. Cloudy (Clear); Urine Urobilinogen Normal (Normal)
[2020-05-05 12:30] LABS: Bacteria 4+ /hpf (None Seen); White Blood Cells >100 SEEN /hpf (0-5)
[2020-05-05 12:32] LABS: ALB/GLOB Ratio 0.9 RATIO (0.9-2.4); AST(SGOT) 31 U/L (15-37); Alanine Aminotransfer ALT/SGPT 58 U/L (16-61); Albumin, Serum 3.7 g/dL (3.2-5.0); Alkaline Phosphatase 146 U/L (45-117); Anion Gap 6 (5-15); BUN 8 mg/dL (7-18); BUN/Creat Ratio 7.5 RATIO (10-20); Calcium,Total 9.2 mg/dL (8.5-10.1); Chloride 101 mmol/L (98-107); Creatinine, Serum 1.07 mg/dL (0.70-1.30); EST Glomerular Filtration Rate 81 mL/min (>60); Est Glom Filt Rate - Afr Amer 98 mL/min (>60); Estimated Creatinine Clearance 90.85 ml/min; Globulin 3.9 g/dL (2.2-4.2); Glucose 93 mg/dL (74-106); Potassium 3.2 mmol/L (3.5-5.1); Protein, Total 7.6 g/dL (6.4-8.2); Sodium Level 137 mmol/L (136-145)
[2020-05-05 12:49] VITALS: BP 138/77; PULSE 71; RESP 16; O2SAT 98
[2020-05-05] MEDS: Ceftriaxone 1 GM/50 ML BAG IV (12:55)
--- NOTE | 2020-05-05 13:05 | CM.ED ---
SOCIAL WORK Informant: Dr. Liao Reason for Consult: Mental Health resources Met with patient in room. Patient reports history of schizophrenia and states [facility]. Patient states is compliant with medications. Patient reports next appointment to be end of April. Patient states lives in between his mother and father's home. Patient denies any safety concerns with returning home with family. Patient denies any suicidal or homicidal ideation. Patient states, I just feel these shocks going through my body. Patient states plans to return to mother's house upon discharge and mother will transport patient home from ER. Call to [facility]. Spoke with Elo in Crisis. Elo confirmed patient's appointment for May [address] Richter. Elo reports able to follow up with patient tomorrow via phone call. Updated Dr. Liao and patient on the above. Plan: Home with follow up through [facility]
[2020-05-05 13:37] VITALS: BP 124/77; PULSE 71; RESP 15; O2SAT 98
== END 2020-05-05 14:05 | disposition home or self-care (01) ==
LOC: ED 14:04
PROVIDERS: Emergency Provider Emergency Medicine; PCP Family Medicine
DX: N39.0 Urinary tract infection, site not specified (principal); F20.9 Schizophrenia, unspecified; E87.6 Hypokalemia; Z79.899 Other long term (current) drug therapy; F17.200 Nicotine dependence, unspecified, uncomplicated
CPT/HCPCS: 80053; 81001; 85025; 93005; 96365; 99285; J7030; J7040; A4216

== ENCOUNTER → 2020-08-26 20:52 | Emergency (ER) | payer MEDICARE, SELFPAY ==
[2020-08-26 20:53] VITALS: BP 155/118; PULSE 125; RESP 18; TEMP 35.7; BMI 21.7
--- NOTE | 2020-08-26 21:06 | EKG12_ITS ---
Test Reason : DYSRHYTHMIA Blood Pressure : / mmHG Vent. Rate : 100 BPM Atrial Rate : 100 BPM P-R Int : 162 ms QRS Dur : 080 ms QT Int : 342 ms P-R-T Axes : 065 047 072 degrees QTc Int : 441 ms Normal sinus rhythm Normal ECG Confirmed by KEZIA RAPHAEL, VELASQUEZ ([id number]), editorial writer ERIC MOREIRA ([id number]) on 08/27/2020 9:26:07 AM Referred By: Confirmed By:VELASQUEZ MAST MD
[2020-08-26] MEDS: LORazepam 2 MG/ML Syringe IV (21:26)
[2020-08-26] MEDS: 0.9% Normal Saline 1,000 ML 1000 ML IV (21:26)
[2020-08-26 21:37] LABS: Absolute Lymphocyte Count 1.59 X10^3/uL (0.83-4.51); Absolute Neutrophil Count 4.1 X10^3/uL (2.0-7.7); Basophil# 0.08 X10^3/uL; Basophil% 1.2 % (0-1); Eosinophil# 0.19 X10^3/uL; Eosinophils% 2.8 % (0-5); Hematocrit 38.7 % (40-54); Hemoglobin 11.5 g/dL (13.0-16.5); Lymphocyte # 1.59 X10^3/ul (0.83-4.51); Lymphocyte % 23.6 % (19-41); Mean Corp Hgb Conc 29.7 g/dL (32-36); Mean Corpuscular Hgb 26.2 pg (27.0-32.0); Mean Corpuscular Volume 88.2 fL (80-94); Monocyte# 0.72 X10^3/uL; Monocyte% 10.7 % (0-10); NRBC Flagged by Analyzer 0 % (0-5); Neutrophil # 4.14 X10^3/uL (2.7-7.7); Neutrophil % 61.6 % (47-70); Platelet Count 334 K/mm3 (150-450); RBC Distribution Width CV 16.2 % (11.6-14.6); RBC Distribution Width SD 52.7 fl (35.1-43.9); Red Blood Count 4.39 M/mm3 (4.6-6.2); White Blood Count 6.7 K/mm3 (4.4-11.0)
[2020-08-26 22:04] LABS: AST(SGOT) 23 U/L (15-37); Alanine Aminotransfer ALT/SGPT 24 U/L (16-61); Albumin, Serum 3.7 g/dL (3.2-5.0); Alkaline Phosphatase 97 U/L (45-117); Anion Gap 5 (5-15); BUN 12 mg/dL (7-18); BUN/Creat Ratio 11.8 RATIO (10-20); Calcium,Total 9.4 mg/dL (8.5-10.1); Chloride 106 mmol/L (98-107); Creatinine, Serum 1.02 mg/dL (0.70-1.30); EST Glomerular Filtration Rate 85 mL/min (>60); Est Glom Filt Rate - Afr Amer 103 mL/min (>60); Estimated Creatinine Clearance 89.88 ml/min; Globulin 3.8 g/dL (2.2-4.2); Glucose 92 mg/dL (74-106); Potassium 4.4 mmol/L (3.5-5.1); Protein, Total 7.5 g/dL (6.4-8.2); Sodium Level 138 mmol/L (136-145)
--- NOTE | 2020-08-26 22:28 | EX.ED.DYSGE1 ---
HPI <Dr. Matt Hudson MD - Last Filed: 08/26/20 23:26> History of Present Illness Chief Complaint: Wound Check Informant: patient Onset/Context/Timing Onset: Today Context: Sudden Onset Timing: Continuous Quality: There is an animal my ass Location: Anus/rectum Current Severity: Severe Maximum Severity: Severe Worsened by: Nothing per patient Relieved by: Nothing per patient Associated Symptoms Associated Symptoms: Patient denies everything Narrative Narrative: Patient is a 39-year-old male who presents because he believes an animal crawled up his anus and is moving in his anus. Patient denied placing any small animals in his anus. Patient denies any rectal bleeding. Patient points to his left inguinal area. Patient was informed that this is not his anus. Patient denies drug use. Patient denies everything other than that he believes there is an animal in his rectum. Mother called in and was concerned that his foreign body sensation may be due to shingles since she has shingles. Prior similar symptoms: No Recent Illness/Hospitalization: No PFSH <Dr. Matt Hudson MD - Last Filed: 08/26/20 23:26> PFSH Medical History Anxiety Depression Hernia Home Medications albuterol sulfate 2 puff INHALATION Q4H PRN PRN 10/04/19 [History Last Taken Unknown] benztropine 1 mg PO QHS 10/04/19 [History Last Taken Unknown] divalproex 500 mg PO DAILY 10/04/19 [History Last Taken Unknown] fluoxetine 40 mg PO DAILY 10/04/19 [History Last Taken Unknown] paliperidone 6 mg PO DAILY 10/04/19 [History Last Taken Unknown] pregabalin 150 mg PO TID 10/04/19 [History Last Taken Unknown] quetiapine 400 mg PO DAILY 10/04/19 [History Last Taken Unknown] tizanidine 4 mg PO DAILY 10/04/19 [History Last Taken Unknown] Allergy/AdvReac Type Severity Reaction Status Date / Time No Known Allergies Allergy Verified 04/05/20 21:06 Surgical History (Updated 08/26/20 @ 20:58 by Gale Rosales) History of appendectomy no surgical history Social History (Updated 08/26/20 @ 22:[address] Matt Hudson MD) household members: family Smoking Status: Current every day smoker details: Patient denies substance use type: other details: Patient denies. ROS <Dr. Matt Hudson MD - Last Filed: 08/26/20 23:26> ROS ED Review of Systems ROS Unobtainable: due to mental status Constitutional Constitutional ED: Reports sweats; Denies chills, fever(s) or subjective Eyes Eyes: Denies blurry vision or change in vision ENT ENT ED: Denies ear pain, rhinorrhea or sore throat Cardiovascular Cardiovascular: Denies chest pain, palpitations or racing heartbeat Respiratory/Chest Respiratory/Chest: Denies cough, dyspnea, dyspnea on exertion or sputum Gastrointestinal Gastrointestinal: Reports other Details: Feels there is something crawling/moving in his anus ; Denies abdominal pain, diarrhea, nausea or vomiting Genitourinary Genitourinary ED: Denies dysuria, hematuria or urinary frequency Musculoskeletal Musculoskeletal: Denies arthralgias, back pain, myalgias or neck pain Integumentary Denies rash Neurologic Neurologic: Denies headache(s) or weakness Psychiatric Psychiatric: Denies anxiety or depression Endocrine Endocrinology: Denies polydipsia, polyphagia or polyuria EXAM <Dr. Matt Hudson MD - Last Filed: 08/26/20 23:26> Physical Exam Const Vital Signs: 08/26/20 20:53 Temperature 96.3 F L Temperature Source Temporal Pulse Rate 125 H Respiratory Rate 18 Blood Pressure 155/118 H Blood Pressure Mean 130 Oxygen Delivery Method Room Air Positive well nourished, well developed and unkempt General Appearance ED: unkempt, well developed, diaphoretic and other And appears agitated. He is hyperactive. HEENT Reports TM's clear and moist mucous membranes Tympanic Membrane ED: Yes TM's clear Eyes PERRL and EOMs intact bilaterally General Eye ED: Negative for pale conjunctiva or scleral icterus Neck no lymphadenopathy, supple and no JVD Chest Wall inspection of chest normal and palpation of chest normal Resp normal respiratory effort and clear to auscultation bilaterally Cardio regular rhythm, S1 normal heart sound, S2 normal heart sound and no murmurs Rate: tachycardic GI normal to inspection, nondistended, normoactive bowel sounds Narrative: Normal external genitalia. There is no inguinal lymphadenopathy. Back/Spine no CVA tenderness Cervical Spine: Negative for cervical spine tenderness Thoracic Spine / Upper Back: Negative for thoracic spinal tenderness Lumbar Spine / Lower Back: Negative for lumbar spinal tenderness Extremity normal to inspection General Extremety ED: Negative for edema or tenderness General Extremity: Negative for edema Neuro No oriented x3, CN's II-XII intact bilaterally and no sensory deficits noted Sensorium / Orientation: alert Motor Exam: strength 5/5 throughout Psych Appearance: unkempt Mood & Affect: anxious Skin no rashes or lesions noted, no wounds and skin turgor normal <Dr. Rudy Skinner MD - Last Filed: 08/27/20 00:02> Physical Exam Const Vital Signs: 08/26/20 20:53 Temperature 96.3 F L Temperature Source Temporal Pulse Rate 125 H Respiratory Rate 18 Blood Pressure 155/118 H Blood Pressure Mean 130 Oxygen Delivery Method Room Air MDM <Dr. Matt Hudson MD - Last Filed: 08/26/20 23:26> [facility] MDM Narrative Medical decision making narrative: Patient presents diaphoretic, pale with hyper activity suspect drug ingestion even though patient denies. Will obtain baseline blood work to assess for anemia, leukocytosis, electrolyte abnormality, renal dysfunction or elevated liver enzymes. Tox screen was ordered as well. If patient is unable to urinate will have nurse cath patient. Patient was treated with 2 mg of Ativan IV push for suspected hyperactivity due to sympathomimetic type drug. Lab Data Attestation: I reviewed the patient's lab results. (Laboratory results are unremarkable. Tox screen is pending.) Labs: Laboratory Results - last 24 hr 08/26/20 08/26/20 08/26/20 21:21 21:21 23:20 WBC 6.7 RBC 4.39 L Hgb 11.5 L Hct 38.7 L MCV 88.2 MCH 26.2 L MCHC 29.7 L RDW Std Deviation 52.7 H RDW Coeff of Moraima 16.2 H Plt Count 334 MPV 11.0 Immature Gran % (Auto) 0.100 Neut % (Auto) 61.6 Lymph % (Auto) 23.6 [place] % (Auto) 10.7 H Eos % (Auto) 2.8 Baso % (Auto) 1.2 H Absolute Neuts (auto) 4.1 Absolute Lymphs (auto) 1.59 Nucleated RBC % 0 Sodium 138 Potassium 4.4 Chloride 106 Carbon Dioxide 27.0 Anion Gap 5 BUN 12 Creatinine 1.02 Estim Creat Clear Calc 89.88 Est GFR (MDRD) Af Amer 103 Est GFR (MDRD) Non-Af 85 BUN/Creatinine Ratio 11.8 Glucose 92 Calcium 9.4 Total Bilirubin 0.70 AST 23 ALT 24 Alkaline Phosphatase 97 Total Protein 7.5 Albumin 3.7 Globulin 3.8 Albumin/Globulin Ratio 1.0 Ur Drug Screen Comment EKG Initial EKG: Interpretation: Sinus Rhythm Comments: Trickle rate is 100. SC interval is 162 ms. QS duration 80 ms. QT duration 3 to 42 ms. The axis is normal. The EKG is normal. Prior: Unchanged Treatment and Re-Evaluation Comments:: Patient improved after IV Ativan. He still is slightly anxious and he remains tachycardic. Additional 2 mg of Ativan was ordered. Review of prior records indicates patient has had evaluation for amphetamines/sympathomimetic abuse overdose. <Dr. Rudy Skinner MD - Last Filed: 08/27/20 00:02> [facility] Lab Data Labs: Laboratory Results - last 24 hr 08/26/20 08/26/20 08/26/20 21:21 21:21 23:20 WBC 6.7 RBC 4.39 L Hgb 11.5 L Hct 38.7 L MCV 88.2 MCH 26.2 L MCHC 29.7 L RDW Std Deviation 52.7 H RDW Coeff of Moraima 16.2 H Plt Count 334 MPV 11.0 Immature Gran % (Auto) 0.100 Neut % (Auto) 61.6 Lymph % (Auto) 23.6 [place] % (Auto) 10.7 H Eos % (Auto) 2.8 Baso % (Auto) 1.2 H Absolute Neuts (auto) 4.1 Absolute Lymphs (auto) 1.59 Nucleated RBC % 0 Sodium 138 Potassium 4.4 Chloride 106 Carbon Dioxide 27.0 Anion Gap 5 BUN 12 Creatinine 1.02 Estim Creat Clear Calc 89.88 Est GFR (MDRD) Af Amer 103 Est GFR (MDRD) Non-Af 85 BUN/Creatinine Ratio 11.8 Glucose 92 Calcium 9.4 Total Bilirubin 0.70 AST 23 ALT 24 Alkaline Phosphatase 97 Total Protein 7.5 Albumin 3.7 Globulin 3.8 Albumin/Globulin Ratio 1.0 Ur Drug Screen Comment Treatment and Re-Evaluation Comments:: The patient was observed. He had continued improvement of his mental status. He is no longer exhibiting any signs of psychosis. He is awake and alert. He answers his questions appropriately. At this point, I do not feel the patient meets criteria for psychiatric hospitalization. His mother will come pick him up. He will be discharged home. Discharge Plan Triage Chief Complaint: Wound Check ED Provider: Rudy Skinner Dx/Rx/DC Orders Instructions: ED Drug Abuse Prescriptions: No Action divalproex 500 MG tablet,delayed release (DR/EC) 500 mg PO DAILY RF: 0 benztropine 2 MG tablet 1 mg PO QHS RF: 0 albuterol sulfate 1 PUFF inhaler 2 puff inhalation Q4H PRN PRN (Reason: Sob &/Or Wheezing) RF: 0 fluoxetine 20 MG capsule 40 mg PO DAILY RF: 0 tizanidine 4 MG capsule 4 mg PO DAILY RF: 0 pregabalin 150 MG capsule 150 mg PO TID RF: 0 paliperidone 6 MG tablet extended release 24hr 6 mg PO DAILY RF: 0 quetiapine 400 MG tablet extended release 24 hr 400 mg PO DAILY RF: 0 Primary Care Provider: Richar Fields Referrals: Richar Fields MD [Primary Care Provider] -
[2020-08-26] MEDS: 0.9% Normal Saline 1,000 ML 150 ML IV (22:41)
[2020-08-27 00:03] LABS: Amphetamine Urine VISTA POSITIVE (<1000 ng/mL); Barbiturate Urine VISTA NEGATIVE (< 200 ng/mL); Benzodiazepine Urine VISTA NEGATIVE (< 200 ng/mL); Cocaine Urine VISTA NEGATIVE (< 300 ng/mL); Ecstacy Urine VISTA NEGATIVE (< 500 ng/mL); Methadone Urine VISTA NEGATIVE (< 300 ng/mL); PCP Urine VISTA NEGATIVE (< 25 ng/mL); THC Urine VISTA NEGATIVE (< 50 ng/mL); Vista UDS pH Range 7
== END | disposition home or self-care (01) ==
PROVIDERS: Emergency Medicine; Emergency Provider Emergency Medicine; PCP Family Medicine
DX: F19.10 Other psychoactive substance abuse, uncomplicated (principal); F41.9 Anxiety disorder, unspecified; F32.9 Major depressive disorder, single episode, unspecified; Z79.899 Other long term (current) drug therapy; F17.200 Nicotine dependence, unspecified, uncomplicated
CPT/HCPCS: 80053; 80307; 85025; 93005; 99285; J7030; A4216

== ENCOUNTER 2020-09-28 10:01 | Emergency (ER) | payer MEDICARE, SELFPAY ==
[2020-08-26 20:53] VITALS: BMI 21.7
[2020-09-28] VITALS (7 sets, daily range): BP systolic 140–173; BP diastolic 81–104; PULSE 69–105; RESP 13–18; TEMP 37.1; O2SAT 96–99; BMI 23.1
[2020-09-28 10:21] LABS: Absolute Lymphocyte Count 1.97 X10^3/uL (0.83-4.51); Absolute Neutrophil Count 2.1 X10^3/uL (2.0-7.7); Basophil# 0.06 X10^3/uL; Basophil% 1.2 % (0-1); Eosinophil# 0.07 X10^3/uL; Eosinophils% 1.4 % (0-5); Hematocrit 42.8 % (40-54); Hemoglobin 13.6 g/dL (13.0-16.5); Lymphocyte # 1.97 X10^3/ul (0.83-4.51); Lymphocyte % 39.4 % (19-41); Mean Corp Hgb Conc 31.8 g/dL (32-36); Mean Corpuscular Hgb 26.6 pg (27.0-32.0); Mean Corpuscular Volume 83.8 fL (80-94); Monocyte# 0.83 X10^3/uL; Monocyte% 16.6 % (0-10); NRBC Flagged by Analyzer 0 % (0-5); Neutrophil # 2.06 X10^3/uL (2.7-7.7); Neutrophil % 41.2 % (47-70); Platelet Count 382 K/mm3 (150-450); RBC Distribution Width CV 17.2 % (11.6-14.6); RBC Distribution Width SD 52.6 fl (35.1-43.9); Red Blood Count 5.11 M/mm3 (4.6-6.2)
--- NOTE | 2020-09-28 10:26 | EDS_ITS ---
HPI History of Present Illness Chief Complaint: Alt LOC Informant: patient and EMS Onset/Context/Timing Onset: Today Context: Gradual Onset Timing: Continuous Current Severity: Moderate Maximum Severity: Moderate Narrative Narrative: Middle-age male reportedly has a history of schizophrenia. Rodrick was called to his home today due to mental status change. He was reportedly combative prior to being brought to the emergency department. He himself denies any complaints. 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 Patient states that he is 8 foot tall. Prior similar symptoms: Yes Recent Illness/Hospitalization: No PFSH PFS Medical History Anxiety Depression Hernia Methamphetamine abuse Schizophrenia Home Medications albuterol sulfate 2 puff INHALATION Q4H PRN PRN 10/04/19 [History Last Taken Unknown] benztropine 1 mg PO QHS 10/04/19 [History Last Taken Unknown] divalproex 500 mg PO DAILY 10/04/19 [History Last Taken Unknown] fluoxetine 40 mg PO DAILY 10/04/19 [History Last Taken Unknown] paliperidone 6 mg PO DAILY 10/04/19 [History Last Taken Unknown] pregabalin 150 mg PO TID 10/04/19 [History Last Taken Unknown] quetiapine 400 mg PO DAILY 10/04/19 [History Last Taken Unknown] tizanidine 4 mg PO DAILY 10/04/19 [History Last Taken Unknown] Allergy/AdvReac Type Severity Reaction Status Date / Time No Known Allergies Allergy Verified 09/28/20 10:07 Surgical History History of appendectomy Social History household members: family Smoking Status: Current every day smoker tobacco type: cigarettes details: Patient denies substance use type: other details: Patient denies. ROS ROS ED ROS Narrative Patient denies any recent illness. He denies any symptoms and I asked him. His history is not reliable due to his mental status. Review of Systems ROS Unobtainable: due to mental condition and due to mental status Constitutional Constitutional ED: Denies fever(s) Eyes Eyes: Denies change in vision ENT ENT ED: Denies ear pain or sore throat Cardiovascular Cardiovascular: Denies chest pain Respiratory/Chest Respiratory/Chest: Denies cough or dyspnea Gastrointestinal Gastrointestinal: Denies abdominal pain, diarrhea, nausea or vomiting Genitourinary Genitourinary ED: Denies dysuria Musculoskeletal Musculoskeletal: Denies myalgias Integumentary Denies rash Neurologic Neurologic: Denies headache(s) Psychiatric Psychiatric: Denies depression, suicidal ideation or suicidal thoughts Endocrine Endocrinology: Denies polyuria Allergic/Immunologic Allergic/Immunologic ED: Denies urticaria EXAM Physical Exam Narrative Exam Narrative: Middle-age male no acute distress. Vital signs stable. Const Vital Signs: 09/28/20 10:03 Temperature 98.8 F Temperature Source Temporal Pulse Rate 105 H Respiratory Rate 18 Blood Pressure 173/104 H Blood Pressure Mean 127 Pulse Ox 96 Oxygen Delivery Method Room Air Positive well nourished and well developed; Negative for obese or cachectic General Appearance ED: well developed; Negative for cachectic or pallor Nutritional Appearance: Negative for cachectic or obese HEENT Reports moist mucous membranes Negative for trauma or tenderness Eyes PERRL and EOMs intact bilaterally Neck no lymphadenopathy, supple and no JVD General: Negative for tenderness Chest Wall inspection of chest normal and palpation of chest normal Resp normal respiratory effort and clear to auscultation bilaterally Effort and Inspection: Negative for pain with movement Cardio regular rhythm, S1 normal heart sound and S2 normal heart sound Rate: tachycardic GI normal to inspection, nondistended, normoactive bowel sounds, non-tender and non-distended GI Narrative: Well-healed hypogastric prior surgical scar. Abdomen is completely nontender. Auscultation: normoactive bowel sounds Palpation: soft Back/Spine no CVA tenderness General Back: Negative for CVA tenderness Cervical Spine: Negative for cervical spine tenderness Extremity normal to inspection General Extremety ED: Negative for edema or tenderness General Extremity: Negative for edema Neuro Neuro Narrative: Patient is speaking in sentences that are incoherent. The words are coherent but the way splinting to gather really does not make much sense. He has no focal motor deficits. Sensorium / Orientation: alert Psych Attitude: agitated Skin no rashes or lesions noted, no wounds and skin turgor normal General Skin Exam: Negative for jaundice or pallor MDM MDM MDM Narrative Medical decision making narrative: 39-year-old male suspect acute exacerbation of underlying psychiatric illness probable schizophrenia. Patient undergoing ED mental health evaluation and need placement. He is unable to take care of himself at this time. Repeat exam no change at 11:40 AM. Patient's father is in the room. He had I went over test results and the plan. Father agrees says he absolutely needs to be admitted to the hospital he can take care of himself. And that he has been speaking to 3-5 different people that are not there meaning that the patient is having hallucinations. Lab Data Lab results narrative: CBC shows a white count of 5 and a hemoglobin of 13. Chemistries unremarkable normal gap. Normal creatinine. Glucose of 112. Alcohol level negative. Labs: Laboratory Results - last 24 hr 09/28/20 09/28/20 09/28/20 10:13 10:13 10:13 WBC 5.0 RBC 5.11 Hgb 13.6 Hct 42.8 MCV 83.8 MCH 26.6 L MCHC 31.8 L RDW Std Deviation 52.6 H RDW Coeff of [place]a 17.2 H Plt Count 382 MPV 10.0 Immature Gran % (Auto) 0.200 Neut % (Auto) 41.2 L Lymph % (Auto) 39.4 [place] % (Auto) 16.6 H Eos % (Auto) 1.4 Baso % (Auto) 1.2 H Absolute Neuts (auto) 2.1 Absolute Lymphs (auto) 1.97 Nucleated RBC % 0 Sodium 141 Potassium 3.6 Chloride 106 Carbon Dioxide 28.0 Anion Gap 7 BUN 15 Creatinine 1.02 Estim Creat Clear Calc 86.00 Est GFR (MDRD) Af Amer 103 Est GFR (MDRD) Non-Af 85 BUN/Creatinine Ratio 14.7 Glucose 112 H Calcium 9.9 Ethyl Alcohol < 3.0 Discharge Plan Triage Chief Complaint: Alt LOC ED Provider: Kaden Muñoz Dx/Rx/DC Orders Clinical Impression: Acute psychosis, Acute (undifferentiated) schizophrenia Prescriptions: No Action divalproex 500 MG tablet,delayed release (DR/EC) 500 mg PO DAILY RF: 0 benztropine 2 MG tablet 1 mg PO QHS RF: 0 albuterol sulfate 1 PUFF inhaler 2 puff inhalation Q4H PRN PRN (Reason: Sob &/Or Wheezing) RF: 0 fluoxetine 20 MG capsule 40 mg PO DAILY RF: 0 tizanidine 4 MG capsule 4 mg PO DAILY RF: 0 pregabalin 150 MG capsule 150 mg PO TID RF: 0 paliperidone 6 MG tablet extended release 24hr 6 mg PO DAILY RF: 0 quetiapine 400 MG tablet extended release 24 hr 400 mg PO DAILY RF: 0 Primary Care Provider: Richar Fields Referrals: Richar Fields MD [Primary Care Provider] -
[2020-09-28 10:33] LABS: Anion Gap 7 (5-15); BUN 15 mg/dL (7-18); BUN/Creat Ratio 14.7 RATIO (10-20); Calcium,Total 9.9 mg/dL (8.5-10.1); Chloride 106 mmol/L (98-107); Creatinine, Serum 1.02 mg/dL (0.70-1.30); EST Glomerular Filtration Rate 85 mL/min (>60); Est Glom Filt Rate - Afr Amer 103 mL/min (>60); Glucose 112 mg/dL (74-106); Potassium 3.6 mmol/L (3.5-5.1); Sodium Level 141 mmol/L (136-145)
[2020-09-28 10:47] LABS: Alcohol, Blood (Medical)-Serum < 3.0 mg/dL
--- NOTE | 2020-09-28 10:57 | NURSING ---
LIZ , SKIP, CALLED. SHE WILL BE IN IN ABOUT 25 MIN
--- NOTE | 2020-09-28 11:22 | NURSING ---
LIZ, CRISIS, HERE FOR PATIENT
--- NOTE | 2020-09-28 11:24 | ED.RN ---
PT CONTINUES TO TALK ABOUT HE IS THE SUPREME BEING. PT STATES MY FOLLOWERS DO NOT UNDERSTAND ME. DAD IN ROOM AT THIS TIME. CRISES HERE TO EVALUATE PT. DR CALDERON TALKS TO DAD
--- NOTE | 2020-09-28 11:35 | ED.RN ---
CRISES WORKER ROOM TALKING WITH PT
[2020-09-28 12:18] LABS: Amphetamine Urine VISTA POSITIVE (<1000 ng/mL); Barbiturate Urine VISTA NEGATIVE (< 200 ng/mL); Benzodiazepine Urine VISTA NEGATIVE (< 200 ng/mL); Cocaine Urine VISTA POSITIVE (< 300 ng/mL); Ecstacy Urine VISTA POSITIVE (< 500 ng/mL); Methadone Urine VISTA NEGATIVE (< 300 ng/mL); PCP Urine VISTA NEGATIVE (< 25 ng/mL); THC Urine VISTA NEGATIVE (< 50 ng/mL); Vista UDS pH Range 5
--- NOTE | 2020-09-28 13:19 | NURSING ---
FAXED CHART TO [facility]
--- NOTE | 2020-09-28 13:43 | ED.RN ---
PT LAYING ON HIS BACK ON THE BED. PT TALKING TO THE CEILING IF HAVING A CONVERSATION. PT STATES I COMMAND YOU MY FOLLOWERS TO OBEY. THIS RN DID CONFRONT PT WITH RESULTS TO URINE TOX SCREEN. PT STATES I DON'T USE DRUGS, MY FOLLOWERS MUST HAVE PLACE THEM THERE
--- NOTE | 2020-09-28 14:26 | NURSING ---
STELLA, CRISIS, CALLED. SENDING INFO TO [facility] AND THEY NEED A COVID TEST
--- NOTE | 2020-09-28 15:08 | NURSING ---
FAXED COVID RESULTS TO CRISIS
--- NOTE | 2020-09-28 15:25 | ED.RN ---
Per Leah denied by [facility] at this time.
--- NOTE | 2020-09-28 15:33 | ED.RN ---
Addendum entered by Marianela Trinidad 09/28/20 15:39: Pt put back in gown. No bed bugs or lice noted. Original Note: THIS NURSE AND ADDITIONAL NURSE IN THE ROOM. WE DID NOT SEE ANY BED BUGS OR LICE ON THE SHEETS OR ON THE PATIENT
--- NOTE | 2020-09-28 17:36 | ED.RN ---
[facility] 60 MIN ETA
--- NOTE | 2020-09-28 17:48 | ED.RN ---
Pt family updated on acceptance to [facility].
[2020-10-04 12:51] LABS: Bedside Glucose 115 mg/dL (70-110)
== END 2020-09-28 18:21 ==
PROVIDERS: Emergency Provider Emergency Medicine; PCP Family Medicine
DX: F20.3 Undifferentiated schizophrenia (principal); F15.10 Other stimulant abuse, uncomplicated; F14.10 Cocaine abuse, uncomplicated; F32.9 Major depressive disorder, single episode, unspecified; F41.9 Anxiety disorder, unspecified; Z79.899 Other long term (current) drug therapy; F17.210 Nicotine dependence, cigarettes, uncomplicated
CPT/HCPCS: 80048; 80307; 82077; 82962; 85025; 87426; 99285

== ENCOUNTER 2020-10-16 00:37 | Emergency (ER) | payer MEDICARE, SELFPAY ==
[2020-09-28 10:03] VITALS: BMI 23.1
[2020-10-16 00:38] VITALS: BP 180/118; PULSE 102; RESP 16; TEMP 37; O2SAT 100; BMI 20.5
--- NOTE | 2020-10-16 01:16 | RAD_ITS ---
STUDY: X-RAY - SOFT TISSUE NECK REASON FOR EXAM: Male, 39 years old. dysphagia TECHNIQUE: 2 view(s) of the neck were obtained. COMPARISON: 04/21/2018 FINDINGS: Normal visualized nasopharynx, oropharynx, hypopharynx. Normal epiglottis. Normal visualized subglottic tracheal air column. Normal prevertebral soft tissue structures. Normal visualized osseous structures. The soft tissue structures are unremarkable. Metallic densities in the anterior soft tissues of the neck, stable from prior exam. RAD/Neck for Soft Tissue IMPRESSION: Normal x-ray soft tissue neck. Electronically Signed: Nirmal Montanez DO at 1:29 EDT Tel , Service support ,
--- NOTE | 2020-10-16 01:24 | EX.ED.DYSGE1 ---
HPI History of Present Illness Chief Complaint: Foreign Body Informant: patient Narrative Narrative: Patient presents by private vehicle concerns for something biting him on the neck 30 minutes prior to arrival. He was inside his house when this occurred. He states since then has difficulty swallowing. Denies dyspnea. History of tracheostomy which has been removed 18 months ago. He states he had a jaw infection from hardware. 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 There has been skin grafting. Denies nausea or vomiting. Denies history of diabetes. Denies any known allergies to insects or medications. No medications taken prior to arrival. Prior similar symptoms: No [facility] Medical History Anxiety Depression Hernia Methamphetamine abuse Schizophrenia Home Medications albuterol sulfate 2 puff INHALATION Q4H PRN PRN 10/04/19 [History Last Taken Unknown] benztropine 1 mg PO QHS 10/04/19 [History Last Taken Unknown] divalproex 500 mg PO DAILY 10/04/19 [History Last Taken Unknown] fluoxetine 40 mg PO DAILY 10/04/19 [History Last Taken Unknown] paliperidone 6 mg PO DAILY 10/04/19 [History Last Taken Unknown] pregabalin 150 mg PO TID 10/04/19 [History Last Taken Unknown] quetiapine 400 mg PO DAILY 10/04/19 [History Last Taken Unknown] tizanidine 4 mg PO DAILY 10/04/19 [History Last Taken Unknown] famotidine [Pepcid] 20 mg PO BID #9 tab 10/16/20 [Rx Last Taken Unknown] prednisone 60 mg PO DAILY #12 tab 10/16/20 [Rx Last Taken Unknown] Allergy/AdvReac Type Severity Reaction Status Date / Time No Known Allergies Allergy Verified 09/28/20 10:07 Surgical History History of appendectomy Social History household members: family Smoking Status: Current every day smoker tobacco type: cigarettes details: Patient denies substance use type: other details: Patient denies. ROS ROS ED Constitutional Constitutional ED: Denies chills, fever(s) or sweats Eyes Eyes: Denies change in vision ENT ENT ED: Reports other Details: Reports dysphagia ; Denies dysphagia or sore throat Cardiovascular Cardiovascular: Denies chest pain, leg edema, palpitations or racing heartbeat Respiratory/Chest Respiratory/Chest: Denies cough, dyspnea or dyspnea on exertion Gastrointestinal Gastrointestinal: Denies abdominal pain, diarrhea, nausea or vomiting Genitourinary Genitourinary ED: Denies dysuria, hematuria or urinary frequency Musculoskeletal Musculoskeletal: Denies back pain, extremity pain or neck pain Integumentary Denies rash or wounds Neurologic Neurologic: Denies headache(s), paresthesias or weakness EXAM Physical Exam Const Vital Signs: 10/16/20 00:38 10/16/20 00:40 Temperature 98.6 F Temperature Source Temporal Pulse Rate 102 H Respiratory Rate 16 Respiratory Effort Normal Respiratory Pattern Normal Blood Pressure 180/118 H Blood Pressure Mean 138 Pulse Ox 100 Oxygen Delivery Method Room Air Positive well nourished and well developed Constitutional Narrative: No stridor, airway patent. General Appearance ED: well developed and NAD HEENT Reports moist mucous membranes HEENT Narrative: Receded left mandibular jaw, skin grafting noted along the jaw left neck. normocephalic and atraumatic Eyes PERRL, EOMs intact bilaterally and conjunctivae normal General Eye ED: Yes normal appearance of both eyes Neck no lymphadenopathy and supple Neck Narrative: Close tracheostomy orifice of the neck. There was no lesions right side of the neck with any urticarial hives or puncture wounds. There is no swelling. General: Negative for tenderness Chest Wall Chest: Negative for tenderness Resp normal respiratory effort and normal air movement Effort and Inspection: symmetric chest movement; Negative for respiratory distress Cardio regular rate, regular rhythm and no murmurs Peripheral Pulses: pulses 2+ throughout GI normal to inspection, nondistended, normoactive bowel sounds and non-tender Palpation: Negative for guarding or rebound tenderness present Back/Spine no CVA tenderness and no thoracic nor lumbar tenderness Extremity normal to inspection General Extremety ED: Negative for edema or tenderness General Extremity: Negative for edema Neuro oriented x3 and no sensory deficits noted Sensorium / Orientation: awake and alert Skin no rashes or lesions noted and no wounds MDM MDM MDM Narrative Medical decision making narrative: Patient nontoxic vital signs stable airway patent. He reported dysphagia after feeling something bite him on the neck. Secondary to this he was given Benadryl Pepcid and prednisone. Soft tissue x-ray neck obtained reviewed by myself and read by radiology as normal. On reevaluation he states his symptoms are improved. Unclear on etiology however concerns for allergic reaction therefore will be placed on prednisone and Pepcid for another 4 days. He will use Benadryl as needed. Return precautions. All questions answered. Radiography Diagnostic Testing: Radiology Impression Soft Tissue Neck X-Ray 10/16/20 01:16 IMPRESSION: Normal x-ray soft tissue neck. Electronically Signed: Nirmal Montanez DO at 1:29 EDT Tel , Service support , Discharge Plan Triage Chief Complaint: Foreign Body ED Provider: Ned Finn Dx/Rx/DC Orders Clinical Impression: Allergic reaction Instructions: ED General Allergic Reactions Prescriptions: New prednisone 20 mg tablet 60 mg PO DAILY Qty: 12 RF: 0 famotidine [Pepcid] 20 mg tablet 20 mg PO BID Qty: 9 RF: 0 No Action divalproex 500 MG tablet,delayed release (DR/EC) 500 mg PO DAILY RF: 0 benztropine 2 MG tablet 1 mg PO QHS RF: 0 albuterol sulfate 1 PUFF inhaler 2 puff inhalation Q4H PRN PRN (Reason: Sob &/Or Wheezing) RF: 0 fluoxetine 20 MG capsule 40 mg PO DAILY RF: 0 tizanidine 4 MG capsule 4 mg PO DAILY RF: 0 pregabalin 150 MG capsule 150 mg PO TID RF: 0 paliperidone 6 MG tablet extended release 24hr 6 mg PO DAILY RF: 0 quetiapine 400 MG tablet extended release 24 hr 400 mg PO DAILY RF: 0 Primary Care Provider: Richar Fields Referrals: Richar Fields MD [Primary Care Provider] - 1 Week Disposition Disposition: Home, Self Care
[2020-10-16] MEDS: DiphenhydrAMINE 25 MG Capsule PO (01:26)
[2020-10-16] MEDS: Famotidine 20 MG Tablet PO (01:26)
[2020-10-16] MEDS: predniSONE 20 MG Tablet 60 MG PO (01:26)
== END 2020-10-16 02:48 | disposition home or self-care (01) ==
PROVIDERS: Emergency Provider Emergency Medicine; PCP Family Medicine
DX: R13.10 Dysphagia, unspecified (principal); T78.40XA Allergy, unspecified, initial encounter; X58.XXXA Exposure to other specified factors, initial encounter; F20.9 Schizophrenia, unspecified; F32.9 Major depressive disorder, single episode, unspecified; F41.9 Anxiety disorder, unspecified; Z79.899 Other long term (current) drug therapy; F17.210 Nicotine dependence, cigarettes, uncomplicated
CPT/HCPCS: 70360; 99283